=== PATIENT | male | born 1975 | race Caucasian/White ===

== ENCOUNTER 2020-01-22 10:23 | Outpatient (REF) | payer MEDICARE, MEDICAID, SELFPAY ==
[2020-01-22 13:41] LABS: Neut%MD 51.2 %; Neutrophils Absolute Auto 5.3 X10*3/uL (2.0-8.3); WBCANC 10.3 X10*3/uL
[2020-01-22 13:42] LABS: Basophils Absolute Auto 0.1 X10*3/uL (0.0-0.2); Basophils Percent Auto 0.7 % (0-2); Eosinophils Absolute Auto 1.9 X10*3/uL (0.0-0.4); Eosinophils Percent Auto 19.1 % (0-4); Imm Gran Abs Auto 0.04 X10*3/uL (0.00-0.03); Imm Gran Pct Auto 0.4 % (0.0-0.4); Lymphocytes Absolute Auto 2.3 X10*3/uL (1.2-4.9); Lymphocytes Percent Auto 23.1 % (20-40); MANUAL DIFF FLAG NO; Mean Corpuscular HGB Conc 32.5 g/dl (31.0-36.0); Mean Corpuscular Hemoglobin 28.8 pg (27.0-33.0); Mean Corpuscular Volume 88.5 fL (80-98); Mean Platelet Volume 12.5 fL (9.4-12.4); Monocytes Absolute Auto 0.5 X10*3/uL (0.1-1.2); Monocytes Percent Auto 4.6 % (2-11); Neutrophils Absolute Auto 5.3 X10*3/uL (2.0-8.3); Neutrophils Percent Auto 52.1 % (45-73); Platelet Count 184 X10*3/uL (160-400); Red Blood Count 4.52 X10*6/uL (4.60-5.80); Red Cell Distribution Width 15.7 % (11.0-16.0); White Blood Count 10.1 X10*3/uL (4.8-10.8)
== END 2020-01-22 10:24 | disposition home or self-care (01) ==
LOC: HO.10HDL 10:23
PROVIDERS: Visit Provider Psychiatry & Neurology Child & Adolescent Psychiatry
DX: F25.0 Schizoaffective disorder, bipolar type (principal); Z51.81 Encounter for therapeutic drug level monitoring; Z79.899 Other long term (current) drug therapy
CPT/HCPCS: 36415; 85025

== ENCOUNTER 2020-01-29 10:17 | Outpatient (REF) | payer MEDICARE, MEDICAID, SELFPAY ==
[2020-01-29 14:49] LABS: Anion Gap 17 (12-20); Blood Urea Nitrogen 23 mg/dL (9-16); Calcium 9.6 mg/dL (8.4-10.2); Carbon Dioxide 26 mmol/L (22-29); Chloride 110 mmol/L (96-108); Estimated Glomerular Filt Rate > 60; Glucose Random 130 mg/dL (60-115); Potassium 4.3 mmol/l (3.3-5.1); Sodium 149 mmol/L (135-145)
== END 2020-01-29 10:18 | disposition home or self-care (01) ==
LOC: HO.10HDL 10:17
PROVIDERS: Visit Provider Internal Medicine
DX: E11.9 Type 2 diabetes mellitus without complications (principal)
CPT/HCPCS: 80048

== ENCOUNTER 2020-02-06 09:44 | Outpatient (REF) | payer MEDICARE, MEDICAID, SELFPAY ==
[2020-02-06 10:44] LABS: Alanine Aminotransferase 23 U/L (0-40); Albumin Level 4.3 g/dL (3.5-5.0); Alkaline Phosphatase 107 U/L (39-117); Anion Gap 13 (12-20); Aspartate Amino Transferase 13 U/L (5-37); Bilirubin Total 0.3 mg/dL (0.0-1.0); Blood Urea Nitrogen 19 mg/dL (9-16); Calcium 9.4 mg/dL (8.4-10.2); Carbon Dioxide 28 mmol/L (22-29); Chloride 110 mmol/L (96-108); Estimated Glomerular Filt Rate > 60; Glucose Random 194 mg/dL (60-115); Sodium 147 mmol/L (135-145); Total Protein 7.1 g/dL (6.5-8.0)
== END 2020-02-06 09:45 | disposition home or self-care (01) ==
LOC: HO.10HDL 09:44
PROVIDERS: Visit Provider Internal Medicine
DX: E78.00 Pure hypercholesterolemia, unspecified (principal); E11.9 Type 2 diabetes mellitus without complications
CPT/HCPCS: 80053

== ENCOUNTER 2020-02-13 11:34 | Outpatient (REF) | payer MEDICARE, MEDICAID, SELFPAY ==
[2020-02-13 13:27] LABS: MANUAL DIFF FLAG NO
[2020-02-13 13:38] LABS: Basophils Absolute Auto 0.1 X10*3/uL (0.0-0.2); Basophils Percent Auto 0.7 % (0-2); Eosinophils Absolute Auto 2.5 X10*3/uL (0.0-0.4); Hematocrit 41.5 % (42-52); Hemoglobin 13.2 g/dl (14.0-18.0); Imm Gran Abs Auto 0.03 X10*3/uL (0.00-0.03); Imm Gran Pct Auto 0.3 % (0.0-0.4); Lymphocytes Absolute Auto 3.7 X10*3/uL (1.2-4.9); Lymphocytes Percent Auto 31.8 % (20-40); Mean Corpuscular HGB Conc 31.8 g/dl (31.0-36.0); Mean Corpuscular Hemoglobin 28.6 pg (27.0-33.0); Mean Platelet Volume 12.2 fL (9.4-12.4); Monocytes Absolute Auto 0.6 X10*3/uL (0.1-1.2); Monocytes Percent Auto 5.4 % (2-11); Neutrophils Absolute Auto 4.6 X10*3/uL (2.0-8.3); Neutrophils Percent Auto 39.8 % (45-73); Platelet Count 199 X10*3/uL (160-400); Red Blood Count 4.61 X10*6/uL (4.60-5.80); Red Cell Distribution Width 15.9 % (11.0-16.0); White Blood Count 11.6 X10*3/uL (4.8-10.8)
[2020-02-13 14:11] LABS: Anion Gap 19 (12-20); Blood Urea Nitrogen 23 mg/dL (9-16); Calcium 9.9 mg/dL (8.4-10.2); Carbon Dioxide 22 mmol/L (22-29); Chloride 110 mmol/L (96-108); Estimated Glomerular Filt Rate 56; Glucose Random 98 mg/dL (60-115); Potassium 4.2 mmol/l (3.3-5.1); Sodium 147 mmol/L (135-145)
== END 2020-02-13 11:35 | disposition home or self-care (01) ==
LOC: HO.10HDL 11:34
PROVIDERS: PCP Internal Medicine; Visit Provider Psychiatry & Neurology Child & Adolescent Psychiatry
DX: F25.0 Schizoaffective disorder, bipolar type (principal); E87.1 Hypo-osmolality and hyponatremia
CPT/HCPCS: 36415; 80048; 85025

== ENCOUNTER 2020-03-02 14:09 | Inpatient (IN) | payer MEDICARE, MEDICAID, SELFPAY ==
[2020-03-02 14:33] VITALS: BP 119/74; PULSE 114; RESP 20; TEMP 38.3; O2SAT 95; BMI 21.4
--- NOTE | 2020-03-02 15:01 | XR_ITS ---
EXAMINATION: XR CHEST CLINICAL INFORMATION: Fever COMPARISON: 09/28/2018 TECHNIQUE: Frontal view of the chest was obtained. FINDINGS: Lung volumes are low. Coarse interstitial opacities are seen. There is a suggestion of hazy opacity at the left lung base. No pleural effusion or pneumothorax. Cardiomediastinal silhouette normal. Regional skeleton intact. XR/XR chest 1V IMPRESSION: There is low lung volumes with coarse interstitial opacities, which could reflect bronchovascular crowding given the low lung volumes. There is a suggestion of hazy opacity at the left lung base. Pneumonia or interstitial pneumonitis are possible. Consider repeat radiograph with improved inspiratory effort.
--- NOTE | 2020-03-02 15:03 | ED_ITS ---
HPI - General Adult General Chief complaint: General Medical <NAZIA Monroe - Last Filed: 03/02/20 17:54> Stated complaint: FEVER <NAZIA Monroe - Last Filed: 03/02/20 17:54> Time Seen by Provider: 03/02/20 15:00 <NAZIA Monroe Last Filed: 03/02/20 17:54> Source: family <NAZIA Monroe - Last Filed: 03/02/20 17:54> Mode of arrival: EMS <NAZIA Monroe - Last Filed: 03/02/20 17:54> Limitations: altered mental status <NAZIA Monroe - Last Filed: 03/02/20 17:54> History of Present Illness HPI narrative: 44 y/o male with history of schizoaffect disorder on Clozaril, PTSD, anxiety, short term memory loss, anxiety and diabetes who presents to ED from PCP office with tachycardia, low grade fever and confusion. Patient is with his mother who provides history. He lives in a [place] [facility] reportedly over the last 1-2 weeks he has been having bizarre behaviors - asking for dinner in the middle of the night, going up and down stairs, packing his clothes in a garbage bag thinking he has to move out. Patient himself reports difficulty concentrating and trouble standing. Mom reports a 14 lb weight loss over the last 3 months and 14 lbs in the 3 months prior to that, unintentional. Reports adequate PO intake and compliance with all medications. He was previously admitted on M5 for 11 weeks and had multiple medication adjustments with good effect per mother. Patient denies chest pain, bad pain, N/V/D, SOB cough or other signs and symptoms of infection. No known exposure to COVID-19. <NAZIA Monroe - Last Filed: 03/02/20 17:54> MD complaint: confusion <NAZIA Monroe - Last Filed: 03/02/20 17:54> Onset (ago): week(s) (2) <NAZIA Monroe - Last Filed: 03/02/20 17:54> Severity: moderate <NAZIA Monroe Last Filed: 03/02/20 17:54> Associated symptoms: confusion, malaise and weakness <NAZIA Monroe - Last Filed: 03/02/20 17:54> Treatments prior to arrival: none <NAZIA Monroe - Last Filed: 03/02/20 17:54> Related Data Home medications: Home Medications Medication Instructions Recorded Confirmed ascorbic acid (vitamin C) [Vitamin 1 tab PO DAILY 03/02/20 03/02/20 C] benztropine 1 tab PO BID 03/02/20 03/02/20 cholecalciferol (vitamin D3) 1 cap PO DAILY 03/02/20 03/02/20 [Vitamin D3] clozapine 50 mg PO DAILY 03/02/20 03/02/20 clozapine 300 mg PO BEDTIME 03/02/20 03/02/20 fluticasone propionate 1 spray INTRANASAL DAILY 03/02/20 03/02/20 glipizide 0.5 tab PO DAILY 03/02/20 03/02/20 haloperidol 2.5 mg PO DAILY 03/02/20 03/02/20 haloperidol 5 mg PO BEDTIME 03/02/20 03/02/20 metformin 1 tab PO BID 03/02/20 03/02/20 multivitamin 1 tab PO DAILY 03/02/20 03/02/20 polyethylene glycol 3350 [Miralax] 17 g PO DAILY PRN 03/02/20 03/02/20 sertraline 1.5 tab PO DAILY 03/02/20 03/02/20 simvastatin 1 tab PO DAILY 03/02/20 03/02/20 topiramate 25 mg PO DAILY 03/02/20 03/02/20 topiramate 50 mg PO BEDTIME 03/02/20 03/02/20 warfarin 2.5 mg PO SUSA@1600 03/02/20 03/02/20 warfarin 5 mg PO MOFR@1600 03/02/20 03/02/20 <NAZIA Monroe - Last Filed: 03/02/20 17:54> Allergies/adverse reactions: Allergies Allergy/AdvReac Type Severity Reaction Status Date / Time penicillin G Allergy Unknown Unknown Verified 03/03/20 06:07 Penicillins [PENICILLINS] Allergy Unknown Unknown Verified 03/03/20 06:07 <NAZIA Monroe - Last Filed: 03/02/20 17:54> Review of Systems Review of Systems: Constitutional: No Fever, No Chills ENT/Mouth: No sore throat, No Rhinorrhea, No Swallowing Difficulty Eyes: No Eye Pain, No Swelling, No Redness Cardiovascular: No Chest Pain, No SOB, No Orthopnea, No Edema Respiratory: No Cough, No Sputum, No Wheezing, No dyspnea Gastrointestinal: No Nausea, No Vomiting, No Diarrhea, No abdominal Pain, No Hematochezia, No Melena Genitourinary: No Dysuria, No Urinary Frequency, No Hematuria Musculoskeletal: No joint pain, No Myalgias Skin: No Skin Lesions, No rash Neuro: + Weakness, No Numbness, No Dizziness, No Headache, +confusion Psych: No Anxiety/Panic, No Depression, + behavioral changes Heme/Lymph: No Bruising, No Lymphadenopathy Endocrine: No Polyuria, No Polydipsia <NAZIA Monroe - Last Filed: 03/02/20 17:54> [facility] Past Medical History Medical History: Medical History (Updated 03/03/20 @ 09:37 by Liang Connelly MD) Anxiety Diabetes insipidus Diabetes mellitus High cholesterol PTSD (post-traumatic stress disorder) Saddle pulmonary embolus Schizo affective schizophrenia <NAZIA Monroe - Last Filed: 03/02/20 17:54> Social History Social History: Social History Household Members: Other Housing: Other Housing Other:: longterm/Assisted living Alcohol intake: never Smoking Status: Never smoker Use of substances other than those prescribed or required for medical reasons: No Currently Displaying Signs/Symptoms of Drug Intoxication Withdrawal: No Advance Directives: Yes Advance Directives on File: Yes Advance Directives Date on File: 01/22/20 Do you have thoughts of harming others: None Do you have a plan to hurt others: No Plan Recently lost weight without trying: Unsure service: No Current occupational status: disabled <NAZIA Monroe - Last Filed: 03/02/20 17:54> Physical Exam Vital Signs: Vital Signs: Last Vital Signs Temp 97.8 F 03/04/20 23:51 Pulse 80 03/04/20 23:51 Resp 20 03/04/20 23:51 BP 141/87 H 03/04/20 23:51 Pulse Ox 99 03/04/20 23:51 Body Mass Index 21.4 Appearance: Alert. Oriented X2. No acute distress. Eyes: Pupils equal, round and reactive to light. ENT: Pharynx normal. Neck: Normal inspection. Neck supple. CVS: tachycardic, regular rhythm. Pulses normal. Respiratory: No respiratory distress. Breath sounds normal. Abdomen: Soft and nontender. +BS x4 Skin: Skin warm and dry. Normal skin color. Normal skin turgor. No rashes. Extremities: No lower extremity edema. Neuro: Oriented X 3. Bilateral upper extremity weakness. No focal deficits. <NAZIA Monroe - Last Filed: 03/02/20 17:54> Vital Signs: Last Vital Signs Temp 97.8 F 03/04/20 23:51 Pulse 80 03/04/20 23:51 Resp 20 03/04/20 23:51 BP 141/87 H 03/04/20 23:51 Pulse Ox 99 03/04/20 23:51 Body Mass Index 21.4 <Jose Llanos MD - Last Filed: 03/05/20 02:46> Course Course Course Narrative: 44 y/o male here with confusion, fever, tachycardia. Found to have sodium of 155 with 4L free water deficit. Will start on D5W @ 75cc/hr to correct 1/2 of the deficit within the 1st 24 hour. CXR showed possible PNA so CAP antibiotics given. COVID and influenza negative. He remains hemodynamically stable with no hypoxia. He has a history of recurrent hypernatremia. Hospitalist paged for admission. Results discussed with mom and patient at the bedside. <NAZIA Monroe - Last Filed: 03/02/20 17:54> I have reviewed the chart <Jose Llanos MD - Last Filed: 03/05/20 02:46> Reevaluation(s) Reevaluation #1: Spoke with hiospitalist who accepts patient. <NAZIA Monroe - Last Filed: 03/02/20 17:54> Medical Decision Making Lab Data Result diagrams: : 03/04/20 05:25 03/04/20 18:13 <NAZIA Monroe - Last Filed: 03/02/20 17:54> Labs: Lab Results 03/02/20 03/02/20 03/02/20 Range/Units 15:24 15:24 15:27 WBC 12.2 H (4.8-10.8) X10*3/uL RBC 3.40 L D (4.60-5.80) X10*6/uL Hgb 9.9 L D (14.0-18.0) g/dl Hct 31.7 L D (42-52) % MCV 93.2 (80-98) fL MCH 29.1 (27.0-33.0) pg MCHC 31.2 (31.0-36.0) g/dl RDW 15.9 (11.0-16.0) % Plt Count 246 (160-400) X10*3/uL MPV 11.2 (9.4-12.4) fL Immature Gran % (Auto) 1.4 H (0.0-0.4) % Neut % (Auto) 73.9 H (45-73) % Lymph % (Auto) 15.3 L (20-40) % [place] % (Auto) 5.7 (2-11) % Eos % (Auto) 3.3 (0-4) % Baso % (Auto) 0.4 (0-2) % Lymph # (Auto) 1.9 (1.2-4.9) X10*3/uL [place] # (Auto) 0.7 (0.1-1.2) X10*3/uL Eos # (Auto) 0.4 (0.0-0.4) X10*3/uL Baso # (Auto) 0.1 (0.0-0.2) X10*3/uL Abs Immat Gran (auto) 0.17 H (0.00-0.03) X10*3/uL Absolute Neuts (auto) 9.0 H (2.0-8.3) X10*3/uL Absolute Nucleated RBC 0.000 (0.0-0.012) X10*3/uL Nucleated RBC % (auto) 0.0 (0.0-0.2) /100WBC Sodium (135-145) mmol/L Potassium (3.3-5.1) mmol/l Chloride (96-108) mmol/L Carbon Dioxide (22-29) mmol/L Anion Gap (12-20) BUN (9-16) mg/dL Creatinine (0.5-1.4) mg/dL Estim Creat Clear Calc Estimated GFR Random Glucose (60-115) mg/dL Lactic Acid (0.5-2.0) mmol/L Lactic Acid Fup @ 2Hr (0.5-2.0) mmol/L Calcium (8.4-10.2) mg/dL Total Bilirubin (0.0-1.0) mg/dL Direct Bilirubin (0.0-0.5) mg/dL AST (5-37) U/L ALT (0-40) U/L Alkaline Phosphatase (39-117) U/L C-Reactive Protein (< or = 0.50) mg/dL Total Protein (6.5-8.0) g/dL Albumin (3.5-5.0) g/dL Urine Color Urine Appearance Urine pH (5.0-8.0) Ur Specific [place] (1.005-1.025) Urine Protein (NEG-TRACE) MG/DL Urine Glucose (UA) (NEG) MG/DL Urine Ketones (NEG) MG/DL Urine Blood (NEG) Urine Nitrite (NEG) Ur Leukocyte Esterase (NEG) Urine RBC (0) /HPF Urine WBC (0-4) /HPF Ur Squamous Epith Cells /LPF Urine Bacteria /LPF Urine Osmolality 327 L (373-1093) mosm/kg Ur Random Sodium 42.0 mmol/L Urine Opiates Screen (Not Detect) Ur Barbiturates Screen (Not Detect) Ur Phencyclidine Scrn (Not Detect) Ur Amphetamines Screen (Not Detect) U Benzodiazepines Scrn (Not Detect) Urine Cocaine Screen (Not Detect) U Marijuana (THC) Screen (Not Detect) Coronavirus (PCR) (Negative) Influenza Type A (PCR) (Negative) Influenza Type B (PCR) (Negative) RSV RNA Qual (PCR) (Negative) 03/02/20 03/02/20 03/02/20 Range/Units 15:27 15:27 15:27 WBC (4.8-10.8) X10*3/uL RBC (4.60-5.80) X10*6/uL Hgb (14.0-18.0) g/dl Hct (42-52) % MCV (80-98) fL MCH (27.0-33.0) pg MCHC (31.0-36.0) g/dl RDW (11.0-16.0) % Plt Count (160-400) X10*3/uL MPV (9.4-12.4) fL Immature Gran % (Auto) (0.0-0.4) % Neut % (Auto) (45-73) % Lymph % (Auto) (20-40) % [place] % (Auto) (2-11) % Eos % (Auto) (0-4) % Baso % (Auto) (0-2) % Lymph # (Auto) (1.2-4.9) X10*3/uL [place] # (Auto) (0.1-1.2) X10*3/uL Eos # (Auto) (0.0-0.4) X10*3/uL Baso # (Auto) (0.0-0.2) X10*3/uL Abs Immat Gran (auto) (0.00-0.03) X10*3/uL Absolute Neuts (auto) (2.0-8.3) X10*3/uL Absolute Nucleated RBC (0.0-0.012) X10*3/uL Nucleated RBC % (auto) (0.0-0.2) /100WBC Sodium 155 H (135-145) mmol/L Potassium 3.8 (3.3-5.1) mmol/l Chloride 120 H (96-108) mmol/L Carbon Dioxide 20 L (22-29) mmol/L Anion Gap 19 (12-20) BUN 31 H (9-16) mg/dL Creatinine 1.44 H (0.5-1.4) mg/dL Estim Creat Clear Calc 60.3 Estimated GFR 54 Random Glucose 149 H D (60-115) mg/dL Lactic Acid 2.7 H* (0.5-2.0) mmol/L Lactic Acid Fup @ 2Hr (0.5-2.0) mmol/L Calcium 9.3 D (8.4-10.2) mg/dL Total Bilirubin 0.3 (0.0-1.0) mg/dL Direct Bilirubin < 0.2 (0.0-0.5) mg/dL AST 16 (5-37) U/L ALT 27 (0-40) U/L Alkaline Phosphatase 107 (39-117) U/L C-Reactive Protein 28.94 H (< or = 0.50) mg/dL Total Protein 6.8 (6.5-8.0) g/dL Albumin 3.5 (3.5-5.0) g/dL Urine Color Urine Appearance Urine pH (5.0-8.0) Ur Specific [place] (1.005-1.025) Urine Protein (NEG-TRACE) MG/DL Urine Glucose (UA) (NEG) MG/DL Urine Ketones (NEG) MG/DL Urine Blood (NEG) Urine Nitrite (NEG) Ur Leukocyte Esterase (NEG) Urine RBC (0) /HPF Urine WBC (0-4) /HPF Ur Squamous Epith Cells /LPF Urine Bacteria /LPF Urine Osmolality (373-1093) mosm/kg Ur Random Sodium mmol/L Urine Opiates Screen (Not Detect) Ur Barbiturates Screen (Not Detect) Ur Phencyclidine Scrn (Not Detect) Ur Amphetamines Screen (Not Detect) U Benzodiazepines Scrn (Not Detect) Urine Cocaine Screen (Not Detect) U Marijuana (THC) Screen (Not Detect) Coronavirus (PCR) (Negative) Influenza Type A (PCR) (Negative) Influenza Type B (PCR) (Negative) RSV RNA Qual (PCR) (Negative) 03/02/20 03/02/20 03/02/20 Range/Units 16:01 17:41 17:41 WBC (4.8-10.8) X10*3/uL RBC (4.60-5.80) X10*6/uL Hgb (14.0-18.0) g/dl Hct (42-52) % MCV (80-98) fL MCH (27.0-33.0) pg MCHC (31.0-36.0) g/dl RDW (11.0-16.0) % Plt Count (160-400) X10*3/uL MPV (9.4-12.4) fL Immature Gran % (Auto) (0.0-0.4) % Neut % (Auto) (45-73) % Lymph % (Auto) (20-40) % [place] % (Auto) (2-11) % Eos % (Auto) (0-4) % Baso % (Auto) (0-2) % Lymph # (Auto) (1.2-4.9) X10*3/uL [place] # (Auto) (0.1-1.2) X10*3/uL Eos # (Auto) (0.0-0.4) X10*3/uL Baso # (Auto) (0.0-0.2) X10*3/uL Abs Immat Gran (auto) (0.00-0.03) X10*3/uL Absolute Neuts (auto) (2.0-8.3) X10*3/uL Absolute Nucleated RBC (0.0-0.012) X10*3/uL Nucleated RBC % (auto) (0.0-0.2) /100WBC Sodium (135-145) mmol/L Potassium (3.3-5.1) mmol/l Chloride (96-108) mmol/L Carbon Dioxide (22-29) mmol/L Anion Gap (12-20) BUN (9-16) mg/dL Creatinine (0.5-1.4) mg/dL Estim Creat Clear Calc Estimated GFR Random Glucose (60-115) mg/dL Lactic Acid (0.5-2.0) mmol/L Lactic Acid Fup @ 2Hr (0.5-2.0) mmol/L Calcium (8.4-10.2) mg/dL Total Bilirubin (0.0-1.0) mg/dL Direct Bilirubin (0.0-0.5) mg/dL AST (5-37) U/L ALT (0-40) U/L Alkaline Phosphatase (39-117) U/L C-Reactive Protein (< or = 0.50) mg/dL Total Protein (6.5-8.0) g/dL Albumin (3.5-5.0) g/dL Urine Color YELLOW Urine Appearance CLEAR Urine pH 5.5 (5.0-8.0) Ur Specific [place] 1.015 (1.005-1.025) Urine Protein 1+ H (NEG-TRACE) MG/DL Urine Glucose (UA) NEG (NEG) MG/DL Urine Ketones NEG (NEG) MG/DL Urine Blood 1+ H (NEG) Urine Nitrite POS H (NEG) Ur Leukocyte Esterase 1+ H (NEG) Urine RBC 1-4 (0) /HPF Urine WBC 15-29 H (0-4) /HPF Ur Squamous Epith Cells NONE /LPF Urine Bacteria 3+ /LPF Urine Osmolality (373-1093) mosm/kg Ur Random Sodium mmol/L Urine Opiates Screen Not Detected (Not Detect) Ur Barbiturates Screen Not Detected (Not Detect) Ur Phencyclidine Scrn Not Detected (Not Detect) Ur Amphetamines Screen Not Detected (Not Detect) U Benzodiazepines Scrn Not Detected (Not Detect) Urine Cocaine Screen Not Detected (Not Detect) U Marijuana (THC) Screen Not Detected (Not Detect) Coronavirus (PCR) NEGATIVE (Negative) Influenza Type A (PCR) NEGATIVE (Negative) Influenza Type B (PCR) NEGATIVE (Negative) RSV RNA Qual (PCR) NEGATIVE (Negative) 03/02/20 Range/Units 18:26 WBC (4.8-10.8) X10*3/uL RBC (4.60-5.80) X10*6/uL Hgb (14.0-18.0) g/dl Hct (42-52) % MCV (80-98) fL MCH (27.0-33.0) pg MCHC (31.0-36.0) g/dl RDW (11.0-16.0) % Plt Count (160-400) X10*3/uL MPV (9.4-12.4) fL Immature Gran % (Auto) (0.0-0.4) % Neut % (Auto) (45-73) % Lymph % (Auto) (20-40) % [place] % (Auto) (2-11) % Eos % (Auto) (0-4) % Baso % (Auto) (0-2) % Lymph # (Auto) (1.2-4.9) X10*3/uL [place] # (Auto) (0.1-1.2) X10*3/uL Eos # (Auto) (0.0-0.4) X10*3/uL Baso # (Auto) (0.0-0.2) X10*3/uL Abs Immat Gran (auto) (0.00-0.03) X10*3/uL Absolute Neuts (auto) (2.0-8.3) X10*3/uL Absolute Nucleated RBC (0.0-0.012) X10*3/uL Nucleated RBC % (auto) (0.0-0.2) /100WBC Sodium (135-145) mmol/L Potassium (3.3-5.1) mmol/l Chloride (96-108) mmol/L Carbon Dioxide (22-29) mmol/L Anion Gap (12-20) BUN (9-16) mg/dL Creatinine (0.5-1.4) mg/dL Estim Creat Clear Calc Estimated GFR Random Glucose (60-115) mg/dL Lactic Acid (0.5-2.0) mmol/L Lactic Acid Fup @ 2Hr 0.9 (0.5-2.0) mmol/L Calcium (8.4-10.2) mg/dL Total Bilirubin (0.0-1.0) mg/dL Direct Bilirubin (0.0-0.5) mg/dL AST (5-37) U/L ALT (0-40) U/L Alkaline Phosphatase (39-117) U/L C-Reactive Protein (< or = 0.50) mg/dL Total Protein (6.5-8.0) g/dL Albumin (3.5-5.0) g/dL Urine Color Urine Appearance Urine pH (5.0-8.0) Ur Specific [place] (1.005-1.025) Urine Protein (NEG-TRACE) MG/DL Urine Glucose (UA) (NEG) MG/DL Urine Ketones (NEG) MG/DL Urine Blood (NEG) Urine Nitrite (NEG) Ur Leukocyte Esterase (NEG) Urine RBC (0) /HPF Urine WBC (0-4) /HPF Ur Squamous Epith Cells /LPF Urine Bacteria /LPF Urine Osmolality (373-1093) mosm/kg Ur Random Sodium mmol/L Urine Opiates Screen (Not Detect) Ur Barbiturates Screen (Not Detect) Ur Phencyclidine Scrn (Not Detect) Ur Amphetamines Screen (Not Detect) U Benzodiazepines Scrn (Not Detect) Urine Cocaine Screen (Not Detect) U Marijuana (THC) Screen (Not Detect) Coronavirus (PCR) (Negative) Influenza Type A (PCR) (Negative) Influenza Type B (PCR) (Negative) RSV RNA Qual (PCR) (Negative) <NAZIA Monroe - Last Filed: 03/02/20 17:54> Lab Results 11/10/20 11/10/20 11/10/20 Range/Units 15:24 15:24 15:27 WBC 12.2 H (4.8-10.8) X10*3/uL RBC 3.40 L D (4.60-5.80) X10*6/uL Hgb 9.9 L D (14.0-18.0) g/dl Hct 31.7 L D (42-52) % MCV 93.2 (80-98) fL MCH 29.1 (27.0-33.0) pg MCHC 31.2 (31.0-36.0) g/dl RDW 15.9 (11.0-16.0) % Plt Count 246 (160-400) X10*3/uL MPV 11.2 (9.4-12.4) fL Immature Gran % (Auto) 1.4 H (0.0-0.4) % Neut % (Auto) 73.9 H (45-73) % Lymph % (Auto) 15.3 L (20-40) % [place] % (Auto) 5.7 (2-11) % Eos % (Auto) 3.3 (0-4) % Baso % (Auto) 0.4 (0-2) % Lymph # (Auto) 1.9 (1.2-4.9) X10*3/uL [place] # (Auto) 0.7 (0.1-1.2) X10*3/uL Eos # (Auto) 0.4 (0.0-0.4) X10*3/uL Baso # (Auto) 0.1 (0.0-0.2) X10*3/uL Abs Immat Gran (auto) 0.17 H (0.00-0.03) X10*3/uL Absolute Neuts (auto) 9.0 H (2.0-8.3) X10*3/uL Absolute Nucleated RBC 0.000 (0.0-0.012) X10*3/uL Nucleated RBC % (auto) 0.0 (0.0-0.2) /100WBC Sodium (135-145) mmol/L Potassium (3.3-5.1) mmol/l Chloride (96-108) mmol/L Carbon Dioxide (22-29) mmol/L Anion Gap (12-20) BUN (9-16) mg/dL Creatinine (0.5-1.4) mg/dL Estim Creat Clear Calc Estimated GFR Random Glucose (60-115) mg/dL Lactic Acid (0.5-2.0) mmol/L Lactic Acid Fup @ 2Hr (0.5-2.0) mmol/L Calcium (8.4-10.2) mg/dL Total Bilirubin (0.0-1.0) mg/dL Direct Bilirubin (0.0-0.5) mg/dL AST (5-37) U/L ALT (0-40) U/L Alkaline Phosphatase (39-117) U/L C-Reactive Protein (< or = 0.50) mg/dL Total Protein (6.5-8.0) g/dL Albumin (3.5-5.0) g/dL Urine Color Urine Appearance Urine pH (5.0-8.0) Ur Specific [place] (1.005-1.025) Urine Protein (NEG-TRACE) MG/DL Urine Glucose (UA) (NEG) MG/DL Urine Ketones (NEG) MG/DL Urine Blood (NEG) Urine Nitrite (NEG) Ur Leukocyte Esterase (NEG) Urine RBC (0) /HPF Urine WBC (0-4) /HPF Ur Squamous Epith Cells /LPF Urine Bacteria /LPF Urine Osmolality 327 L (373-1093) mosm/kg Ur Random Sodium 42.0 mmol/L Urine Opiates Screen (Not Detect) Ur Barbiturates Screen (Not Detect) Ur Phencyclidine Scrn (Not Detect) Ur Amphetamines Screen (Not Detect) U Benzodiazepines Scrn (Not Detect) Urine Cocaine Screen (Not Detect) U Marijuana (THC) Screen (Not Detect) Coronavirus (PCR) (Negative) Influenza Type A (PCR) (Negative) Influenza Type B (PCR) (Negative) RSV RNA Qual (PCR) (Negative) 03/02/20 03/02/20 03/02/20 Range/Units 15:27 15:27 15:27 WBC (4.8-10.8) X10*3/uL RBC (4.60-5.80) X10*6/uL Hgb (14.0-18.0) g/dl Hct (42-52) % MCV (80-98) fL MCH (27.0-33.0) pg MCHC (31.0-36.0) g/dl RDW (11.0-16.0) % Plt Count (160-400) X10*3/uL MPV (9.4-12.4) fL Immature Gran % (Auto) (0.0-0.4) % Neut % (Auto) (45-73) % Lymph % (Auto) (20-40) % [place] % (Auto) (2-11) % Eos % (Auto) (0-4) % Baso % (Auto) (0-2) % Lymph # (Auto) (1.2-4.9) X10*3/uL [place] # (Auto) (0.1-1.2) X10*3/uL Eos # (Auto) (0.0-0.4) X10*3/uL Baso # (Auto) (0.0-0.2) X10*3/uL Abs Immat Gran (auto) (0.00-0.03) X10*3/uL Absolute Neuts (auto) (2.0-8.3) X10*3/uL Absolute Nucleated RBC (0.0-0.012) X10*3/uL Nucleated RBC % (auto) (0.0-0.2) /100WBC Sodium 155 H (135-145) mmol/L Potassium 3.8 (3.3-5.1) mmol/l Chloride 120 H (96-108) mmol/L Carbon Dioxide 20 L (22-29) mmol/L Anion Gap 19 (12-20) BUN 31 H (9-16) mg/dL Creatinine 1.44 H (0.5-1.4) mg/dL Estim Creat Clear Calc 60.3 Estimated GFR 54 Random Glucose 149 H D (60-115) mg/dL Lactic Acid 2.7 H* (0.5-2.0) mmol/L Lactic Acid Fup @ 2Hr (0.5-2.0) mmol/L Calcium 9.3 D (8.4-10.2) mg/dL Total Bilirubin 0.3 (0.0-1.0) mg/dL Direct Bilirubin < 0.2 (0.0-0.5) mg/dL AST 16 (5-37) U/L ALT 27 (0-40) U/L Alkaline Phosphatase 107 (39-117) U/L C-Reactive Protein 28.94 H (< or = 0.50) mg/dL Total Protein 6.8 (6.5-8.0) g/dL Albumin 3.5 (3.5-5.0) g/dL Urine Color Urine Appearance Urine pH (5.0-8.0) Ur Specific [place] (1.005-1.025) Urine Protein (NEG-TRACE) MG/DL Urine Glucose (UA) (NEG) MG/DL Urine Ketones (NEG) MG/DL Urine Blood (NEG) Urine Nitrite (NEG) Ur Leukocyte Esterase (NEG) Urine RBC (0) /HPF Urine WBC (0-4) /HPF Ur Squamous Epith Cells /LPF Urine Bacteria /LPF Urine Osmolality (373-1093) mosm/kg Ur Random Sodium mmol/L Urine Opiates Screen (Not Detect) Ur Barbiturates Screen (Not Detect) Ur Phencyclidine Scrn (Not Detect) Ur Amphetamines Screen (Not Detect) U Benzodiazepines Scrn (Not Detect) Urine Cocaine Screen (Not Detect) U Marijuana (THC) Screen (Not Detect) Coronavirus (PCR) (Negative) Influenza Type A (PCR) (Negative) Influenza Type B (PCR) (Negative) RSV RNA Qual (PCR) (Negative) 03/02/20 03/02/20 03/02/20 Range/Units 16:01 17:41 17:41 WBC (4.8-10.8) X10*3/uL RBC (4.60-5.80) X10*6/uL Hgb (14.0-18.0) g/dl Hct (42-52) % MCV (80-98) fL MCH (27.0-33.0) pg MCHC (31.0-36.0) g/dl RDW (11.0-16.0) % Plt Count (160-400) X10*3/uL MPV (9.4-12.4) fL Immature Gran % (Auto) (0.0-0.4) % Neut % (Auto) (45-73) % Lymph % (Auto) (20-40) % [place] % (Auto) (2-11) % Eos % (Auto) (0-4) % Baso % (Auto) (0-2) % Lymph # (Auto) (1.2-4.9) X10*3/uL [place] # (Auto) (0.1-1.2) X10*3/uL Eos # (Auto) (0.0-0.4) X10*3/uL Baso # (Auto) (0.0-0.2) X10*3/uL Abs Immat Gran (auto) (0.00-0.03) X10*3/uL Absolute Neuts (auto) (2.0-8.3) X10*3/uL Absolute Nucleated RBC (0.0-0.012) X10*3/uL Nucleated RBC % (auto) (0.0-0.2) /100WBC Sodium (135-145) mmol/L Potassium (3.3-5.1) mmol/l Chloride (96-108) mmol/L Carbon Dioxide (22-29) mmol/L Anion Gap (12-20) BUN (9-16) mg/dL Creatinine (0.5-1.4) mg/dL Estim Creat Clear Calc Estimated GFR Random Glucose (60-115) mg/dL Lactic Acid (0.5-2.0) mmol/L Lactic Acid Fup @ 2Hr (0.5-2.0) mmol/L Calcium (8.4-10.2) mg/dL Total Bilirubin (0.0-1.0) mg/dL Direct Bilirubin (0.0-0.5) mg/dL AST (5-37) U/L ALT (0-40) U/L Alkaline Phosphatase (39-117) U/L C-Reactive Protein (< or = 0.50) mg/dL Total Protein (6.5-8.0) g/dL Albumin (3.5-5.0) g/dL Urine Color YELLOW Urine Appearance CLEAR Urine pH 5.5 (5.0-8.0) Ur Specific [place] 1.015 (1.005-1.025) Urine Protein 1+ H (NEG-TRACE) MG/DL Urine Glucose (UA) NEG (NEG) MG/DL Urine Ketones NEG (NEG) MG/DL Urine Blood 1+ H (NEG) Urine Nitrite POS H (NEG) Ur Leukocyte Esterase 1+ H (NEG) Urine RBC 1-4 (0) /HPF Urine WBC 15-29 H (0-4) /HPF Ur Squamous Epith Cells NONE /LPF Urine Bacteria 3+ /LPF Urine Osmolality (373-1093) mosm/kg Ur Random Sodium mmol/L Urine Opiates Screen Not Detected (Not Detect) Ur Barbiturates Screen Not Detected (Not Detect) Ur Phencyclidine Scrn Not Detected (Not Detect) Ur Amphetamines Screen Not Detected (Not Detect) U Benzodiazepines Scrn Not Detected (Not Detect) Urine Cocaine Screen Not Detected (Not Detect) U Marijuana (THC) Screen Not Detected (Not Detect) Coronavirus (PCR) NEGATIVE (Negative) Influenza Type A (PCR) NEGATIVE (Negative) Influenza Type B (PCR) NEGATIVE (Negative) RSV RNA Qual (PCR) NEGATIVE (Negative) 03/02/20 Range/Units 18:26 WBC (4.8-10.8) X10*3/uL RBC (4.60-5.80) X10*6/uL Hgb (14.0-18.0) g/dl Hct (42-52) % MCV (80-98) fL MCH (27.0-33.0) pg MCHC (31.0-36.0) g/dl RDW (11.0-16.0) % Plt Count (160-400) X10*3/uL MPV (9.4-12.4) fL Immature Gran % (Auto) (0.0-0.4) % Neut % (Auto) (45-73) % Lymph % (Auto) (20-40) % [place] % (Auto) (2-11) % Eos % (Auto) (0-4) % Baso % (Auto) (0-2) % Lymph # (Auto) (1.2-4.9) X10*3/uL [place] # (Auto) (0.1-1.2) X10*3/uL Eos # (Auto) (0.0-0.4) X10*3/uL Baso # (Auto) (0.0-0.2) X10*3/uL Abs Immat Gran (auto) (0.00-0.03) X10*3/uL Absolute Neuts (auto) (2.0-8.3) X10*3/uL Absolute Nucleated RBC (0.0-0.012) X10*3/uL Nucleated RBC % (auto) (0.0-0.2) /100WBC Sodium (135-145) mmol/L Potassium (3.3-5.1) mmol/l Chloride (96-108) mmol/L Carbon Dioxide (22-29) mmol/L Anion Gap (12-20) BUN (9-16) mg/dL Creatinine (0.5-1.4) mg/dL Estim Creat Clear Calc Estimated GFR Random Glucose (60-115) mg/dL Lactic Acid (0.5-2.0) mmol/L Lactic Acid Fup @ 2Hr 0.9 (0.5-2.0) mmol/L Calcium (8.4-10.2) mg/dL Total Bilirubin (0.0-1.0) mg/dL Direct Bilirubin (0.0-0.5) mg/dL AST (5-37) U/L ALT (0-40) U/L Alkaline Phosphatase (39-117) U/L C-Reactive Protein (< or = 0.50) mg/dL Total Protein (6.5-8.0) g/dL Albumin (3.5-5.0) g/dL Urine Color Urine Appearance Urine pH (5.0-8.0) Ur Specific [place] (1.005-1.025) Urine Protein (NEG-TRACE) MG/DL Urine Glucose (UA) (NEG) MG/DL Urine Ketones (NEG) MG/DL Urine Blood (NEG) Urine Nitrite (NEG) Ur Leukocyte Esterase (NEG) Urine RBC (0) /HPF Urine WBC (0-4) /HPF Ur Squamous Epith Cells /LPF Urine Bacteria /LPF Urine Osmolality (373-1093) mosm/kg Ur Random Sodium mmol/L Urine Opiates Screen (Not Detect) Ur Barbiturates Screen (Not Detect) Ur Phencyclidine Scrn (Not Detect) Ur Amphetamines Screen (Not Detect) U Benzodiazepines Scrn (Not Detect) Urine Cocaine Screen (Not Detect) U Marijuana (THC) Screen (Not Detect) Coronavirus (PCR) (Negative) Influenza Type A (PCR) (Negative) Influenza Type B (PCR) (Negative) RSV RNA Qual (PCR) (Negative) <Jose Llanos MD - Last Filed: 03/05/20 02:46> Critical Care Time Critical Care Time Critical Care Time: No <NAZIA Monroe - Last Filed: 03/02/20 17:54> Discharge Plan Discharge Clinical Impression: Acute hypernatremia, Acute metabolic encephalopathy Pneumonia Qualifiers: Pneumonia type: due to unspecified organism Laterality: left Lung location: lower lobe of lung Qualified Code(s): J18.9 - Pneumonia, unspecified organism <NAZIA Monroe - Last Filed: 03/02/20 17:54> Patient Disposition: Admitted As Inpatient <NAZIA Monroe - Last Filed: 03/02/20 17:54> Interventions: Admission Worksheet (ED) Last Done: 03/02/20 20:19 <NAZIA Monroe - Last Filed: 03/02/20 17:54> Discharge Date/Time: 03/02/20 20:27 <NAZIA Monroe - Last Filed: 03/02/20 17:54>
--- NOTE | 2020-03-02 15:24 | CT_ITS ---
EXAMINATION: CT HEAD WITHOUT CONTRAST CLINICAL INFORMATION: 44-year-old male patient with confusion and altered mental status. COMPARISON: CT exams of the brain on 09/28/2018 and 01/07/2016. TECHNIQUE: Contiguous axial imaging was performed from the skull base to vertex without intravenous administration of contrast. This CT examination was performed using dose optimization techniques as appropriate, variously including the following: *Automated exposure control *Adjustment of mA and/or kV according to patient size (this includes techniques or standardized protocols for targeted exams where dose is matched to indication/reason for exam; i.e. extremities or head) *Use of iterative reconstruction technique DLP: 715 mGy-cm FINDINGS: Again there is relative ventriculomegaly with prominence of the cerebral sulci consistent with generalized cerebral atrophy in this 44-year-old patient. The bifrontal horn diameter now measures 4.5 cm. Previously 4.3 cm. The third ventricle measures 1.1 cm in width. Previously 0.8 cm. The fourth ventricle measures 1.7 cm in width. Previously 1.5 cm. There is no evidence of acute intracranial hemorrhage or territorial infarction. No abnormal mass effect or midline shift is seen. [place] to white matter differentiation is well preserved. No extra-axial fluid collections are identified. There is no abnormal attenuation within the brain parenchyma. The osseous structures and soft tissues are normal. The mastoid air cells and visualized portions of the paranasal sinuses are well aerated. CT/CT head/brain wo con IMPRESSION: Generalized mild cerebral atrophy in this 44-year-old patient. No acute intracranial abnormalities.
[2020-03-02 15:34] LABS: Basophils Absolute Auto 0.1 X10*3/uL (0.0-0.2); Basophils Percent Auto 0.4 % (0-2); Eosinophils Absolute Auto 0.4 X10*3/uL (0.0-0.4); Eosinophils Percent Auto 3.3 % (0-4); Hematocrit 31.7 % (42-52); Hemoglobin 9.9 g/dl (14.0-18.0); Imm Gran Abs Auto 0.17 X10*3/uL (0.00-0.03); Imm Gran Pct Auto 1.4 % (0.0-0.4); Lymphocytes Absolute Auto 1.9 X10*3/uL (1.2-4.9); Lymphocytes Percent Auto 15.3 % (20-40); MANUAL DIFF FLAG NO; Mean Corpuscular HGB Conc 31.2 g/dl (31.0-36.0); Mean Corpuscular Hemoglobin 29.1 pg (27.0-33.0); Mean Corpuscular Volume 93.2 fL (80-98); Mean Platelet Volume 11.2 fL (9.4-12.4); Monocytes Absolute Auto 0.7 X10*3/uL (0.1-1.2); Monocytes Percent Auto 5.7 % (2-11); Neutrophils Percent Auto 73.9 % (45-73); Platelet Count 246 X10*3/uL (160-400); Red Cell Distribution Width 15.9 % (11.0-16.0); White Blood Count 12.2 X10*3/uL (4.8-10.8)
[2020-03-02 15:58] LABS: Lactic Acid 2.7 mmol/L (0.5-2.0)
[2020-03-02 16:00] VITALS: RESP 18
[2020-03-02 16:14] LABS: Alanine Aminotransferase 27 U/L (0-40); Albumin Level 3.5 g/dL (3.5-5.0); Alkaline Phosphatase 107 U/L (39-117); Aspartate Amino Transferase 16 U/L (5-37); Bilirubin Direct < 0.2 mg/dL (0.0-0.5); Bilirubin Total 0.3 mg/dL (0.0-1.0); C Reactive Protein 28.94 mg/dL (< or = 0.50); Total Protein 6.8 g/dL (6.5-8.0)
[2020-03-02] MEDS: cefTRIAXone sodium 1 GM in 0.9 % Sodium Chloride 50 ML IV (16:24)
[2020-03-02] MEDS: Acetaminophen 325 MG TABLET 650 MG PO (16:24)
[2020-03-02] MEDS: 0.9 % Sodium Chloride 1,000 ML 999 ML IVCONT ×2 (16:27→17:46)
[2020-03-02 16:32] LABS: Anion Gap 19 (12-20); Blood Urea Nitrogen 31 mg/dL (9-16); Calcium 9.3 mg/dL (8.4-10.2); Carbon Dioxide 20 mmol/L (22-29); Chloride 120 mmol/L (96-108); Creatinine Clr Calc Pharmacy 60.3; Estimated Glomerular Filt Rate 54; Glucose Random 149 mg/dL (60-115); Potassium 3.8 mmol/l (3.3-5.1)
[2020-03-02 16:41] LABS: Sodium 155 mmol/L (135-145)
[2020-03-02 17:01] LABS: Influenza A PCR NEGATIVE (Negative); Influenza B PCR NEGATIVE (Negative); Resp Syncy Virus RNA Qual PCR NEGATIVE (Negative); SARS COV2 PCR INHOUSE NEGATIVE (Negative)
[2020-03-02 17:32] LABS: Reflex Lactate? Lactic Acid Added
[2020-03-02] MEDS: Azithromycin 500 MG in 0.9 % Sodium Chloride 250 ML 125 MG IV (17:46)
[2020-03-02 18:07] LABS: Glucose Urine UA NEG (NEG); Leukocyte Esterase Urine 1+ (NEG); Nitrite Urine POS (NEG); PH 5.5 (5.0-8.0); Specific Gravity - Urine 1.015 (1.005-1.025); Urine Blood 1+ (NEG); Urine Ketones NEG (NEG); Urine Protein 1+ MG/DL (NEG-TRACE)
[2020-03-02 18:11] LABS: Appearance Urine CLEAR; Color Urine YELLOW
[2020-03-02] MEDS: Dextrose 5 % 1,000 ML 75 ML IVCONT (18:23)
[2020-03-02 18:29] LABS: Amphetamine Screen Urine Not Detected (Not Detect); Barbiturates, Urine Not Detected (Not Detect); Benzodiazepines Screen Urine Not Detected (Not Detect); Cannabinoid Screen Urine Not Detected (Not Detect); Cocaine Screen Urine Not Detected (Not Detect); Opiate Screen Urine Not Detected (Not Detect); Phencyclidine Screen Urine Not Detected (Not Detect)
[2020-03-02 18:31] LABS: Bacteria Urine 3+ /LPF
--- NOTE | 2020-03-02 18:31 | P.EN_ITS ---
Event Note Date of Service: 03/02/20 Event Note: Patient seen and examined independently and was present during antonio portion of E/M service. Agree with midlevel's history, physical, assessment, and plan. 44M presented with fever, AMS severe sepsis poa due to CAP/UTI, complicated by metabolic encephalopathy and h ypernatremia iv abx, check ct chest history of DI likely due to chronic lithium (now off) D5w, monitor
[2020-03-02 19:00] LABS: ~Lactic Acid-LAB USE ONLY 0.9 mmol/L (0.5-2.0)
[2020-03-02 19:48] LABS: Osmolality Urine 327 mosm/kg (373-1093)
--- NOTE | 2020-03-02 20:04 | ECG_ITS ---
Test Reason : SOB Blood Pressure : / mmHG Vent. Rate : 084 BPM Atrial Rate : 084 BPM P-R Int : 142 ms QRS Dur : 088 ms QT Int : 388 ms P-R-T Axes : 014 -01 -18 degrees QTc Int : 458 ms Normal sinus rhythm Nonspecific T wave abnormality Inferior leads Abnormal ECG When compared with ECG of 28-SEP-2018 20:02, Nonspecific T wave abnormality now evident in Inferior leads Referred By: Emily Gan Electronically Signed By:OSMIN RYAN MD
[2020-03-02 20:18] VITALS: BP 98/63; PULSE 83; RESP 18; TEMP 36.6; O2SAT 96
[2020-03-02 20:34] VITALS: BP 119/63; PULSE 84; RESP 18; TEMP 36.9; O2SAT 97
--- NOTE | 2020-03-02 20:39 | HP_ITS ---
DATE OF SERVICE: 03/02/2020 CHIEF COMPLAINT: Confusion. HISTORY OF PRESENT ILLNESS: 44-year-old man, presenting to the ER after being seen by his primary care provider. Apparently, he had seemed to be more confused recently. He lives in a snf, however, his mother is very involved in his care. She did report that he has lost about 30 pounds over the last several months unintentionally. He does have a history of diabetes insipidus and generally he drinks about 120 ounces of water a day. She reports that he has been compliant with this and he has been eating and drinking like normal. He also apparently had a fever while at the snf. He is somewhat vague, but denies any chest pain, shortness of breath, or cough. In the ER, he was noted to have an elevated sodium of 155, chloride 120, creatinine 1.44, lactic acid 2.7, white blood cell count 12.2. Urinalysis positive for infection. Coronavirus PCR negative. Chest x-ray showed low lung volumes with coarse interstitial opacities. He had a low-grade fever of 100.9 and his blood pressure was stable. He received Tylenol, IV fluid, D5W, ceftriaxone, and Rocephin while in the ER. He will be admitted for further management and treatment of severe sepsis related to community-acquired pneumonia and hypernatremia. PAST MEDICAL HISTORY: 1. Diabetes insipidus. 2. Diabetes mellitus. 3. Hyperlipidemia. 4. Anxiety. 5. History of PTSD. 6. Schizoaffective disorder. 7. History of mental retardation. SOCIAL HISTORY: Lives in a snf. According to his mother, he does not use any alcohol, tobacco, or illicit drugs. FAMILY HISTORY: No cardiac disease noted. ALLERGIES: PENICILLIN G. MEDICATIONS: 1. Ascorbic acid 500 mg daily. 2. Benztropine 1 tab p.o. b.i.d. 3. Cholecalciferol 1 cap p.o. daily. 4. Clozapine 50 mg p.o. daily. 5. Fluticasone propionate 1 spray intranasally daily. 6. Glipizide tab daily. 7. Haloperidol 2.5 mg daily. LABORATORY DATA: WBC 12.2, hemoglobin 9.9, hematocrit 31.7, platelets 246. COVID negative. Sodium 155, potassium 3.8, chloride is 120, bicarb is 28, BUN is 31, creatinine is 1.44, glucose is 149. Lactic acid is 2.7. Urinalysis positive for infection. REVIEW OF SYSTEMS: Unable to obtain as the patient does have some confusion and history of mental retardation. PHYSICAL EXAMINATION: CONSTITUTIONAL: The patient is resting in bed. VITAL SIGNS: 100.9, 114, 20, 119/74, 95% on room air. SKIN: Intact without rashes or open sores. HEENT: Head is normocephalic, atraumatic. Eyes, pupils are PERRLA. Sclerae anicteric. Mouth and Throat: Mucous membranes are intact and moist. NECK: Supple. No lymphadenopathy. No JVD noted. CHEST: Clear to auscultation without wheezes, rhonchi, or rales. HEART: Regular rate and rhythm. Clear S1, S2. No murmurs, rubs, or gallops. ABDOMEN: Positive bowel sounds. Abdomen is soft, nontender. No hepatomegaly or splenomegaly noted. NEURO: The patient is alert, oriented, somewhat vague and mildly confused. No focal deficits noted. ASSESSMENT AND PLAN: 44-year-old man, who is being admitted with hypernatremia, likely related to history of diabetes insipidus. He is also noted to have a community-acquired pneumonia with a negative coronavirus PCR. 1. Severe sepsis. Fever, tachycardia, lactic acidosis. Follow blood cultures. 2. Community-acquired pneumonia. Rocephin, azithromycin, continue supplemental oxygen as needed. 3. Hypernatremia. Likely related to diabetes insipidus. D5W, Nephrology to follow, follow BMP q.4 hours. 4. History of schizoaffective disorder. Continue home medications. 5. Hyperlipidemia. Continue statin. 6. History of PE. Continue warfarin. Check PT/INR daily. 7. Urinary tract infection. Will be treated with Rocephin. Follow urine culture. 8. Acute kidney injury on chronic kidney disease. Continue IV fluids. Follow BMP closely. 9. Deep venous thrombosis prophylaxis with warfarin. 10. Case discussed with Dr. Connelly. 11. Full code. RAUL Walton MD JR/GABBY / [id number]
[2020-03-02] MEDS: Dextrose 5 % 1,000 ML 100 ML IVCONT (21:24)
[2020-03-02 21:28] LABS: Glucose, Whole Blood 212 mg/dL (60-115)
[2020-03-02] MEDS: Topiramate 25 MG TABLET 50 MG PO (22:04)
[2020-03-02] MEDS: cloZAPine 100 MG TABLET 300 MG PO (22:04)
[2020-03-02] MEDS: Insulin Lispro 100 UNIT/ML 3 ML VIAL SUBCUT (22:04)
[2020-03-02] MEDS: Benztropine Mesylate 1 MG TABLET PO (22:05)
[2020-03-02] MEDS: 0.9 % Sodium Chloride Flush 3 ML SYRINGE IVFLUSH (22:05)
[2020-03-02] MEDS: HaloperidoL 5 MG TABLET PO (22:05)
[2020-03-02 23:22] VITALS: BMI 22.1
[2020-03-02 23:26] VITALS: BP 144/85; PULSE 91; RESP 18; TEMP 36.8; O2SAT 97
--- NOTE | 2020-03-03 | CT_ITS ---
EXAMINATION: CT CHEST WITHOUT CONTRAST CLINICAL INFORMATION: Fever and chills. Rule out pneumonia. COMPARISON: Previous chest x-rays most recent from yesterday and chest CT scans most recent December [address] scan September 2018 TECHNIQUE: Multidetector volumetric CT imaging of the chest was done. Axial MIP volume rendering provided. Sagittal and coronal reformatted images were obtained. This CT examination was performed using dose optimization techniques as appropriate, variously including the following: *Automated exposure control *Adjustment of mA and/or kV according to patient size (this includes techniques or standardized protocols for targeted exams where dose is matched to indication/reason for exam; i.e. extremities or head) *Use of iterative reconstruction technique DLP: 212 mGy-cm FINDINGS: LUNGS: There is artifact from respiratory motion. There is a small 2 mm calcified left upper lobe nodule axial image 81 series 5. There is a small 2 mm right upper lobe nodule axial image 161 series 5. There is a 3 mm calcified left upper lobe nodule axial image 188 series 5. These are stable. Evaluation of the lung bases is limited due to artifact from respiratory motion. No evidence of a pneumonia is seen. There is increased soft tissue seen dependently adjacent to the posterior wall of the distal trachea for example axial image 16 series 4 and sagittal reconstructed image 50 this is new from previous exams. This some of this appears to contain air and may be related to patient secretions. MEDIASTINUM: There are prominent mediastinal lymph nodes. These have fatty centers or chi and are similar to previous exams. Largest lymph nodes are AP window lymph nodes, largest measuring 1.1 x 1.8 cm in transverse and AP dimension. The mediastinum is otherwise normal. PLEURA: There is no pleural effusion. No pleural mass or thickening. AXILLA: No lymphadenopathy. UPPER ABDOMEN: There is fullness of the left renal collecting system questionable for hydronephrosis. This is similar to previous exams. OSSEOUS STRUCTURES: There are degenerative changes of the spine. CT/CT chest wo con IMPRESSION: Limited exam due to marked artifact. No evidence of pneumonia. Small calcified and noncalcified pulmonary nodules similar to previous exams. Prominent mediastinal lymph nodes also stable from previous exam. Increased soft tissue seen dependently adjacent to the posterior tracheal wall. This may be related to patient secretions.
[2020-03-03 01:53] LABS: Sodium 153 mmol/L (135-145)
[2020-03-03 01:54] LABS: Anion Gap 14 (12-20); Blood Urea Nitrogen 29 mg/dL (9-16); Calcium 8.3 mg/dL (8.4-10.2); Carbon Dioxide 22 mmol/L (22-29); Chloride 121 mmol/L (96-108); Estimated Glomerular Filt Rate 59; Glucose Random 173 mg/dL (60-115); Potassium 3.8 mmol/l (3.3-5.1)
[2020-03-03 04:00] VITALS: BP 121/73; PULSE 95; RESP 18; TEMP 36.8; O2SAT 95
[2020-03-03] MEDS: Dextrose 5 % 1,000 ML 100 ML IVCONT (06:22)
[2020-03-03 06:31] LABS: MANUAL DIFF FLAG NO
[2020-03-03 06:45] LABS: INTERNATIONAL NORM RATIO 3.9 (0.9-1.1); Prothrombin Time 47.6 SEC (10.8-13.0)
[2020-03-03 06:48] LABS: Basophils Absolute Auto 0.1 X10*3/uL (0.0-0.2); Basophils Percent Auto 0.5 % (0-2); Eosinophils Absolute Auto 0.4 X10*3/uL (0.0-0.4); Eosinophils Percent Auto 4.1 % (0-4); Hematocrit 28.5 % (42-52); Hemoglobin 8.8 g/dl (14.0-18.0); Imm Gran Abs Auto 0.15 X10*3/uL (0.00-0.03); Imm Gran Pct Auto 1.5 % (0.0-0.4); Lymphocytes Absolute Auto 1.5 X10*3/uL (1.2-4.9); Lymphocytes Percent Auto 14.8 % (20-40); Mean Corpuscular HGB Conc 30.9 g/dl (31.0-36.0); Mean Corpuscular Hemoglobin 28.9 pg (27.0-33.0); Mean Corpuscular Volume 93.4 fL (80-98); Monocytes Absolute Auto 0.5 X10*3/uL (0.1-1.2); Monocytes Percent Auto 5.3 % (2-11); NRBC Pct Auto 0.2 /100WBC (0.0-0.2); Neutrophils Absolute Auto 7.5 X10*3/uL (2.0-8.3); Neutrophils Percent Auto 73.8 % (45-73); Platelet Count 219 X10*3/uL (160-400); Red Blood Count 3.05 X10*6/uL (4.60-5.80); Red Cell Distribution Width 15.9 % (11.0-16.0); White Blood Count 10.2 X10*3/uL (4.8-10.8)
[2020-03-03 07:27] VITALS: BP 107/65; PULSE 89; RESP 18; TEMP 36.9; O2SAT 96
[2020-03-03 07:42] LABS: Glucose, Whole Blood 234 mg/dL (60-115)
[2020-03-03] MEDS: Insulin Lispro 100 UNIT/ML 3 ML VIAL SUBCUT (08:18)
[2020-03-03] MEDS: 0.9 % Sodium Chloride Flush 3 ML SYRINGE IVFLUSH ×3 (08:19→20:37)
[2020-03-03] MEDS: Ascorbic Acid 500 MG TABLET PO (08:20)
[2020-03-03] MEDS: Topiramate 25 MG TABLET PO (08:20)
[2020-03-03] MEDS: metFORMIN HCl 1,000 MG TABLET 1000 MG PO ×2 (08:21→17:46)
[2020-03-03] MEDS: Benztropine Mesylate 1 MG TABLET PO ×2 (08:21→20:36)
[2020-03-03] MEDS: Cholecalciferol (Vitamin D3) 25 MCG TABLET PO (08:21)
[2020-03-03] MEDS: Fluticasone Propionate Nasal 16 GM SPRAY 1 SPRAY NOSTRIL-B (08:21)
[2020-03-03] MEDS: cloZAPine 25 MG TABLET 50 MG PO (08:21)
[2020-03-03] MEDS: Atorvastatin Calcium 80 MG TABLET PO (08:21)
[2020-03-03] MEDS: Multivitamin TABLET 1 TAB PO (08:21)
[2020-03-03] MEDS: Sertraline HCL 100 MG TABLET 150 MG PO (08:28)
[2020-03-03] MEDS: glipiZIDE 5 MG TABLET 2.5 MG PO (08:29)
[2020-03-03] MEDS: HaloperidoL 5 MG TABLET 2.5 MG PO (08:29)
--- NOTE | 2020-03-03 09:35 | P.PNIM_ITS ---
Subjective Subjective Date of Service: 03/03/20 Interval History: feeling well Cardiovascular Cardiovascular: Reports no additional cardiovascular complaints Respiratory Respiratory: Reports no additional respiratory complaints Physical Exam Vital Signs: Vital Signs: Last Vital Signs Temp 98.5 F 03/03/20 07:27 Pulse 89 03/03/20 07:27 Resp 18 03/03/20 07:27 BP 107/65 03/03/20 07:27 Pulse Ox 96 03/03/20 07:27 Body Mass Index 22.1 General: AO X 3, no acute distress Resp: CTA bilateral CVS: S1,S2,RRR GI: soft, non tender, non distended Neuro: motor grossly intact Psych: appropriate affect Objective Data Current Medications Generic Name Dose Route Start Last Admin Trade Name Freq PRN Reason Stop Dose Admin Acetaminophen 650 mg 03/02/20 20:04 Acetaminophen 325 Mg Tablet PO Q6H PRN Pain, Mild (Pain Scale 1-3) Ascorbic Acid 500 mg 03/03/20 09:00 03/03/20 08:20 Ascorbic Acid 500 Mg Tablet PO 500 mg DAILY RUBEN Administration Atorvastatin Calcium 80 mg 03/03/20 09:00 03/03/20 08:21 Atorvastatin Calcium 80 Mg Tablet PO 80 mg DAILY RUBEN Administration Benztropine Mesylate 1 mg 03/02/20 21:00 03/03/20 08:21 Benztropine Mesylate 1 Mg Tablet PO 1 mg BID RUBEN Administration Clozapine 300 mg 03/02/20 21:00 03/02/20 22:04 Clozapine 100 Mg Tablet PO 300 mg BEDTIME RUBEN Administration Clozapine 50 mg 03/03/20 09:00 03/03/20 08:21 Clozapine 25 Mg Tablet PO 50 mg DAILY RUBEN Administration Fluticasone Propionate 1 spray 03/03/20 09:00 03/03/20 08:21 Fluticasone Propionate Nasal 16 Gm [place] NOSTRIL-B 1 spray DAILY RUBEN Administration Glipizide 2.5 mg 03/03/20 09:00 03/03/20 08:29 Glipizide 5 Mg Tablet PO 2.5 mg DAILY RUBEN Administration Haloperidol 5 mg 03/02/20 21:00 03/02/20 22:05 Haloperidol 5 Mg Tablet PO 5 mg BEDTIME RUBEN Administration Haloperidol 2.5 mg 03/03/20 09:00 03/03/20 08:29 Haloperidol 5 Mg Tablet PO 2.5 mg DAILY RUBEN Administration Azithromycin 500 mg/ Sodium 250 mls @ 125 mls/hr 03/03/20 17:00 Chloride IV Q24H RUBEN Dextrose 1,000 mls @ 100 mls/hr 03/02/20 20:04 03/03/20 06:22 D5w IVCONT 100 mls/hr .Q10H RUBEN Administration Ceftriaxone Sodium 1 gm/ 50 mls @ 100 mls/hr 03/03/20 15:00 Sodium Chloride IV Q24H RUBEN Insulin Human Lispro 0 unit 03/02/20 21:00 03/03/20 08:18 Insulin Lispro 100 Unit/Ml 3 Ml Vial SUBCUT 4 unit QIDACHS RUBEN Administration Protocol Metformin HCl 1,000 mg 03/03/20 08:00 03/03/20 08:21 Metformin Hcl 1,000 Mg Tablet PO 1,000 mg BIDWM RUBEN Administration Multivitamins/Vitamin C 1 tab 03/03/20 09:00 03/03/20 08:21 Multivitamin Tablet PO 1 tab DAILY RUBEN Administration Ondansetron HCl 4 mg 03/02/20 20:04 Ondansetron Hcl 4 Mg/2 Ml Vial IVPUSH Q8H PRN Nausea and Vomiting Pharmacy Consult 1 each 03/02/20 17:53 Consult Rx Perform Med Rec MISCELLANE ONCE PRN Consult order Polyethylene Glycol 17 gm 03/02/20 20:19 Polyethylene Glycol 3350 17 Gm Powd.Pack PO DAILY PRN Constipation Sertraline HCl 150 mg 03/03/20 09:00 03/03/20 08:28 Sertraline Hcl 100 Mg Tablet PO 150 mg DAILY RUBEN Administration Sodium Chloride 3 ml 03/03/20 00:00 03/03/20 08:19 0.9 % Sodium Chloride Flush 3 Ml Syringe IVFLUSH 3 ml QSHIFT RUBEN Administration Topiramate 25 mg 03/03/20 09:00 03/03/20 08:20 Topiramate 25 Mg Tablet PO 25 mg DAILY RUBEN Administration Topiramate 50 mg 03/02/20 21:00 03/02/20 22:04 Topiramate 25 Mg Tablet PO 50 mg BEDTIME RUBEN Administration Vitamin D 25 mcg 03/03/20 09:00 03/03/20 08:21 Cholecalciferol (Vitamin D3) 25 Mcg Tablet PO 25 mcg DAILY RUBEN Administration Warfarin Sodium 2.5 mg 03/06/20 16:00 Warfarin Sodium 2.5 Mg Tablet PO SUSA@1600 [facility] Warfarin Sodium 5 mg 03/05/20 16:00 Warfarin Sodium 5 Mg Tablet PO MOFR@1600 [facility] Labs CBC & Chem 7: 03/03/20 05:26 03/03/20 00:37 Microbiology Microbiology Results: Microbiology 03/02/20 15:27 Blood - Venous Blood Culture - Preliminary Assessment and Plan (1) UTI (urinary tract infection): Status: Acute (2) Severe sepsis: Status: Acute (3) Acute hypernatremia: Status: Acute (4) Acute metabolic encephalopathy: Status: Acute (5) Pneumonia: Status: Acute (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, on coumadin indefinitely Status: Inactive (7) Diabetes insipidus: Status: Acute (8) Diabetes mellitus: Status: Acute (9) Schizo affective schizophrenia: Status: Acute (10) Primary polydipsia: Status: Acute Assessment and Plan: 44M presented with fever, AMS Severe sepsis present on admission due to pneumonia and urinary tract infection with Gram-negative bacteremia complicated by metabolic encephalopathy continue ceftriaxone and azithromycin, follow-up cultures encephalopathy seems to have resolved hypernatremia due to diabetes insipidus, likely due to history of lithium, now no longer on lithium will stop D5w to see if he can maintain with just po free water intake, does have history of hyponatremia due to primary polydipsia, will need to monitor BMP closely history of saddle pulmonary embolism Coumadin schizoaffective disorder clozapine, Haldol, Zoloft, Topamax hyperlipidemia statin diabetes glipizide, metformin, insulin weight loss mother reports 30 lb over the last 6 months should have outpatient workup
--- NOTE | 2020-03-03 09:55 | MHC.CDI.CONC ---
CDI Concurrent Query Service Date: 03/03/20 Documentation Clarification: Please clarify if you are treating a probable/suspected/likely or confirmed: Consistency: CJ on CKD Stage 1-5 (Txt, rule out, resolved) Please specify if known Provider Response: CKD Stage 2 PLEASE DO NOT DELETE/MODIFY EXISTING CONTENT Additional information is needed in order to code to the highest accuracy and appropriate Severity of Illness (SOI). Please clarify the information noted below in your progress notes and discharge summary. Risk Factors/Clinical Indicators/Treatments H&P: Assessment/plan: CJ on CKD continue IV fluids, follow BMP closely. BUN 31 29 CR 1.44 1.32 GRF 54 59 CDS: Mitzi Washington CCS, CDIS Contact Number: [phone] Please Review the information above and exercise your independent professional judgment in responding to the query. If you concur, pleas document in the PROGRESS NOTES and DISCHARGE SUMMARY. If you do not agree with the query, please document in the query above. THIS QUERY IS PART OF THE PERMANENT MEDICAL RECORD
[2020-03-03 11:31] VITALS: BP 114/69; PULSE 102; RESP 20; TEMP 36.6; O2SAT 98
[2020-03-03 11:52] LABS: Glucose, Whole Blood 85 mg/dL (60-115)
--- NOTE | 2020-03-03 11:55 | P.CONNP_ITS ---
History of Present Illness Reason for Consult Consult date: 03/03/20 Reason for consult: hyperNa Chief Complaint Chief complaint: Hypernatremia History of Present Illness Narrative: ASk to see PT re hyperNa and h/o NDI presumed d/t prior Lithoium use. On adm SNa was high and has been mildly high on prior labs..interestingly he had an espoideod of hypoNa 09/2018 and at that time he correct relatively fast and he was given DDAVP and looks like he did not respond to the DDAVP which would be again c/w NDI. He was adm with ques of pnuemonia. His mental status is hard to asses as its unclear what his bsl is The EHR is clear that he has large PO fluid intake on dialy bassis and is labeled as having NDI. 1. Diabetes insipidus...H/O Winter Use in past 2. Diabetes mellitus. 3. Hyperlipidemia. 4. Anxiety. 5. History of PTSD. 6. Schizoaffective disorder. 7. History of mental retardation. [facility] Past Medical History Medical History (Updated 03/03/20 @ 09:37 by Liang Connelly MD) Anxiety Diabetes insipidus Diabetes mellitus High cholesterol PTSD (post-traumatic stress disorder) Saddle pulmonary embolus Schizo affective schizophrenia Social History Social History Household Members: Other Housing: Other Housing Other:: [facility] Alcohol intake: never Smoking Status: Never smoker Use of substances other than those prescribed or required for medical reasons: No Advance Directives: Yes Advance Directives on File: Yes Advance Directives Date on File: 01/22/20 Do you have thoughts of harming others: None Do you have a plan to hurt others: No Plan Recently lost weight without trying: Unsure service: No Current occupational status: disabled Meds Allergies Allergy/AdvReac Type Severity Reaction Status Date / Time penicillin G Allergy Unknown Unknown Verified 03/03/20 06:07 Penicillins [PENICILLINS] Allergy Unknown Unknown Verified 03/03/20 06:07 Home Medications Medication Instructions Recorded Confirmed Type ascorbic acid (vitamin C) [Vitamin 1 tab PO DAILY 03/02/20 03/02/20 History C] benztropine 1 tab PO BID 03/02/20 03/02/20 History cholecalciferol (vitamin D3) 1 cap PO DAILY 03/02/20 03/02/20 History [Vitamin D3] clozapine 50 mg PO DAILY 03/02/20 03/02/20 History clozapine 300 mg PO BEDTIME 03/02/20 03/02/20 History fluticasone propionate 1 spray INTRANASAL DAILY 03/02/20 03/02/20 History glipizide 0.5 tab PO DAILY 03/02/20 03/02/20 History haloperidol 2.5 mg PO DAILY 03/02/20 03/02/20 History haloperidol 5 mg PO BEDTIME 03/02/20 03/02/20 History metformin 1 tab PO BID 03/02/20 03/02/20 History multivitamin 1 tab PO DAILY 03/02/20 03/02/20 History polyethylene glycol 3350 [Miralax] 17 g PO DAILY PRN 03/02/20 03/02/20 History sertraline 1.5 tab PO DAILY 03/02/20 03/02/20 History simvastatin 1 tab PO DAILY 03/02/20 03/02/20 History topiramate 25 mg PO DAILY 03/02/20 03/02/20 History topiramate 50 mg PO BEDTIME 03/02/20 03/02/20 History warfarin 2.5 mg PO SUSA@1600 03/02/20 03/02/20 History warfarin 5 mg PO MOFR@1600 03/02/20 03/02/20 History Physical Exam Vital Signs: Last Vital Signs Temp 97.9 F 03/03/20 11:31 Pulse 102 H 03/03/20 11:31 Resp 20 03/03/20 11:31 BP 114/69 03/03/20 11:31 Pulse Ox 98 03/03/20 11:31 Body Mass Index 22.1 General: AO X 3, no acute distress Resp: CTA bilateral CVS: S1,S2,RRR GI: soft, non tender, non distended Neuro: motor grossly intact Psych: appropriate affect Results Lab Results Result Diagrams: 03/03/20 05:26 03/03/20 00:37 Lab results: Chemistry 03/02/20 03/03/20 15:27 00:37 Sodium 155 H 153 H Potassium 3.8 3.8 Carbon Dioxide 20 L 22 BUN 31 H 29 H Creatinine 1.44 H 1.32 Calcium 9.3 D 8.3 L D Hematology 03/02/20 03/03/20 15:27 05:26 WBC 12.2 H 10.2 Hgb 9.9 L D 8.8 L Plt Count 246 219 Urinalysis 03/02/20 17:41 Urine Color YELLOW Urine Appearance CLEAR Urine pH 5.5 Ur Specific [place] 1.015 Urine Protein 1+ H Urine Glucose (UA) NEG Urine Ketones NEG Urine Blood 1+ H Urine Nitrite POS H Ur Leukocyte Esterase 1+ H Urine RBC 1-4 Urine WBC 15-29 H Ur Squamous Epith Cells NONE Urine Studies 03/02/20 15:24 Urine Osmolality 327 L Laboratory Tests 10/08/18 01/14/20 02/06/20 09:35 13:46 09:51 Sodium 148 H 151 H 147 H 03/02/20 03/03/20 15:27 00:37 Sodium 155 H 153 H Assessment and Plan (1) UTI (urinary tract infection): Status: Acute (2) Severe sepsis: Status: Acute (3) Acute hypernatremia: Status: Acute (4) Acute metabolic encephalopathy: Status: Acute (5) Pneumonia: Qualifiers: Laterality: left Lung location: lower lobe of lung Pneumonia type: due to unspecified organism Qualified Code(s): J18.9 - Pneumonia, unspecified organism Status: Acute (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 HyperN w H/O NDI and SNA 155 on adm slt decr to 153 this am; typically NDI PTs will self-regualte and drink adequate PO fluids to avoid SNa > 148 but with his recent acute illness he may not be able to keep up interestingly back in 09/2018 he had an espideo of hypoNa but looking at his labs they have been consiitently normla SNA or ellveated to high 140's to low 150's 2. CKD 3: c/w DN and/o injusry form Li in hte past 3. CAP REC: give him acces to fluids to see if jhe will self regualte and get his SNA down to normal range but may need IV hypotonic fluids to help; follow SNa; no need to give DDAVP to r/o CDI given history and prior ineffectiveness of DDAVP ( 09/2018) Could try meds like thiazides or NSAIDS to paradxoically decr UOP BUT hte risk of complication from these meds outweighs there potenetial benefit Will follow with team
--- NOTE | 2020-03-03 13:29 | MHC.CM.PN ---
CM spoke with HCP/POA/guardian patient's mom Nathalia Amaya [phone] who reports patient is fairly independent but needs constant guidance with care r/t schizophrenia and mental retardation. Patient lives in a Home who cares for people but is not a retirement . HCP/POA/guardianship papers are all on chart. Patient's mom is very involved with patient's care. Discussed discharge plan, return to current home with resumption of services from [facility]. Referral made via [employer]. Patient's mom will provide transportation. CM will continue to follow patient for discharge needs.
[2020-03-03 14:02] VITALS: BMI 22.1
[2020-03-03] MEDS: cefTRIAXone sodium 1 GM in 0.9 % Sodium Chloride 50 ML IV (15:35)
[2020-03-03 16:00] VITALS: BP 109/68; PULSE 99; RESP 18; TEMP 36.3; O2SAT 98
[2020-03-03 17:01] LABS: Glucose, Whole Blood 96 mg/dL (60-115)
[2020-03-03] MEDS: Azithromycin 500 MG in 0.9 % Sodium Chloride 250 ML 125 MG IV (17:46)
[2020-03-03 20:00] VITALS: BP 110/71; PULSE 80; RESP 16; TEMP 36.2; O2SAT 98
[2020-03-03] MEDS: Topiramate 25 MG TABLET 50 MG PO (20:37)
[2020-03-03] MEDS: cloZAPine 100 MG TABLET 300 MG PO (20:37)
[2020-03-03] MEDS: HaloperidoL 5 MG TABLET PO (20:37)
[2020-03-03 21:53] LABS: Anion Gap 18 (12-20); Carbon Dioxide 23 mmol/L (22-29); Chloride 111 mmol/L (96-108); Potassium 3.7 mmol/l (3.3-5.1); Sodium 148 mmol/L (135-145)
[2020-03-03 22:38] LABS: Glucose, Whole Blood 107 mg/dL (60-115)
[2020-03-03 23:26] VITALS: BP 131/78; PULSE 92; RESP 18; TEMP 37; O2SAT 97
[2020-03-04 03:45] VITALS: BP 128/68; PULSE 98; RESP 18; TEMP 37; O2SAT 98
[2020-03-04 06:59] LABS: MANUAL DIFF FLAG NO
[2020-03-04 07:10] LABS: Basophils Absolute Auto 0.1 X10*3/uL (0.0-0.2); Basophils Percent Auto 0.4 % (0-2); Eosinophils Absolute Auto 0.8 X10*3/uL (0.0-0.4); Eosinophils Percent Auto 7.4 % (0-4); Hematocrit 28.4 % (42-52); Hemoglobin 8.8 g/dl (14.0-18.0); Imm Gran Abs Auto 0.11 X10*3/uL (0.00-0.03); Lymphocytes Absolute Auto 2.4 X10*3/uL (1.2-4.9); Lymphocytes Percent Auto 21.3 % (20-40); Mean Corpuscular Hemoglobin 28.9 pg (27.0-33.0); Mean Corpuscular Volume 93.1 fL (80-98); Monocytes Absolute Auto 0.5 X10*3/uL (0.1-1.2); Monocytes Percent Auto 4.2 % (2-11); Neutrophils Absolute Auto 7.4 X10*3/uL (2.0-8.3); Neutrophils Percent Auto 65.7 % (45-73); Platelet Count 233 X10*3/uL (160-400); Red Blood Count 3.05 X10*6/uL (4.60-5.80); Red Cell Distribution Width 15.5 % (11.0-16.0); White Blood Count 11.3 X10*3/uL (4.8-10.8)
[2020-03-04 07:23] LABS: Glucose, Whole Blood 132 mg/dL (60-115)
[2020-03-04 08:00] VITALS: BP 103/67; PULSE 81; RESP 18; TEMP 36.4; O2SAT 95
[2020-03-04 08:05] LABS: Blood Urea Nitrogen 25 mg/dL (9-16); Calcium 8.3 mg/dL (8.4-10.2); Estimated Glomerular Filt Rate > 60; Glucose Fasting 163 mg/dL (60-99)
[2020-03-04 08:14] LABS: Anion Gap 16 (12-20); Carbon Dioxide 21 mmol/L (22-29); Chloride 116 mmol/L (96-108); Potassium 3.9 mmol/l (3.3-5.1); Sodium 149 mmol/L (135-145)
[2020-03-04] MEDS: Sertraline HCL 100 MG TABLET 150 MG PO (08:15)
[2020-03-04] MEDS: metFORMIN HCl 1,000 MG TABLET 1000 MG PO (08:17)
[2020-03-04] MEDS: Topiramate 25 MG TABLET PO (08:17)
[2020-03-04] MEDS: Cholecalciferol (Vitamin D3) 25 MCG TABLET PO (08:17)
[2020-03-04] MEDS: HaloperidoL 5 MG TABLET 2.5 MG PO (08:18)
[2020-03-04] MEDS: Ascorbic Acid 500 MG TABLET PO (08:18)
[2020-03-04] MEDS: cloZAPine 25 MG TABLET 50 MG PO (08:19)
[2020-03-04] MEDS: Benztropine Mesylate 1 MG TABLET PO ×2 (08:19→22:36)
[2020-03-04] MEDS: Multivitamin TABLET 1 TAB PO (08:19)
[2020-03-04] MEDS: glipiZIDE 5 MG TABLET 2.5 MG PO (08:19)
[2020-03-04] MEDS: Atorvastatin Calcium 80 MG TABLET PO (08:19)
[2020-03-04] MEDS: 0.9 % Sodium Chloride Flush 3 ML SYRINGE IVFLUSH ×2 (08:20→18:24)
[2020-03-04] MEDS: Fluticasone Propionate Nasal 16 GM SPRAY 1 SPRAY NOSTRIL-B (08:21)
[2020-03-04 08:43] LABS: INTERNATIONAL NORM RATIO 3.1 (0.9-1.1); Prothrombin Time 36.7 SEC (10.8-13.0)
[2020-03-04 11:11] LABS: Glucose, Whole Blood 77 mg/dL (60-115)
--- NOTE | 2020-03-04 11:27 | P.PNIM_ITS ---
Subjective Subjective Date of Service: 03/04/20 Interval History: feels well Cardiovascular Cardiovascular: Reports no additional cardiovascular complaints Respiratory Respiratory: Reports no additional respiratory complaints Physical Exam Vital Signs: Vital Signs: Last Vital Signs Temp 97.6 F 03/04/20 08:00 Pulse 81 03/04/20 08:00 Resp 18 03/04/20 08:00 BP 103/67 03/04/20 08:00 Pulse Ox 95 03/04/20 08:00 Body Mass Index 22.1 General: AO X 3, no acute distress Resp: CTA bilateral CVS: S1,S2,RRR GI: soft, non tender, non distended Neuro: motor grossly intact Psych: appropriate affect Objective Data Current Medications Generic Name Dose Route Start Last Admin Trade Name Freq PRN Reason Stop Dose Admin Acetaminophen 650 mg 03/02/20 20:04 Acetaminophen 325 Mg Tablet PO Q6H PRN Pain, Mild (Pain Scale 1-3) Ascorbic Acid 500 mg 03/03/20 09:00 03/04/20 08:18 Ascorbic Acid 500 Mg Tablet PO 500 mg DAILY RUBEN Administration Atorvastatin Calcium 80 mg 03/03/20 09:00 03/04/20 08:19 Atorvastatin Calcium 80 Mg Tablet PO 80 mg DAILY RUBEN Administration Benztropine Mesylate 1 mg 03/02/20 21:00 03/04/20 08:19 Benztropine Mesylate 1 Mg Tablet PO 1 mg BID RUBEN Administration Clozapine 300 mg 03/02/20 21:00 03/03/20 20:37 Clozapine 100 Mg Tablet PO 300 mg BEDTIME RUBEN Administration Clozapine 50 mg 03/03/20 09:00 03/04/20 08:19 Clozapine 25 Mg Tablet PO 50 mg DAILY RUBEN Administration Fluticasone Propionate 1 spray 03/03/20 09:00 03/04/20 08:21 Fluticasone Propionate Nasal 16 Gm Hilger NOSTRIL-B 1 spray DAILY RUBEN Administration Glipizide 2.5 mg 03/03/20 09:00 03/04/20 08:19 Glipizide 5 Mg Tablet PO 2.5 mg DAILY RUBEN Administration Haloperidol 5 mg 03/02/20 21:00 03/03/20 20:37 Haloperidol 5 Mg Tablet PO 5 mg BEDTIME RUBEN Administration Haloperidol 2.5 mg 03/03/20 09:00 03/04/20 08:18 Haloperidol 5 Mg Tablet PO 2.5 mg DAILY RUBEN Administration Azithromycin 500 mg/ Sodium 250 mls @ 125 mls/hr 03/03/20 17:00 03/03/20 20:41 Chloride IV Infused Q24H RUBEN Infusion Ceftriaxone Sodium 1 gm/ 50 mls @ 100 mls/hr 03/03/20 15:00 03/03/20 16:16 Sodium Chloride IV Infused Q24H RUBEN Infusion Insulin Human Lispro 0 unit 03/02/20 21:00 03/04/20 11:23 Insulin Lispro 100 Unit/Ml 3 Ml Vial SUBCUT Not Given QIDACHS [facility] Protocol Metformin HCl 1,000 mg 03/03/20 08:00 03/04/20 08:17 Metformin Hcl 1,000 Mg Tablet PO 1,000 mg BIDWM RUBEN Administration Multivitamins/Vitamin C 1 tab 03/03/20 09:00 03/04/20 08:19 Multivitamin Tablet PO 1 tab DAILY RUBEN Administration Ondansetron HCl 4 mg 03/02/20 20:04 Ondansetron Hcl 4 Mg/2 Ml Vial IVPUSH Q8H PRN Nausea and Vomiting Pharmacy Consult 1 each 03/02/20 17:53 Consult Rx Perform Med Rec MISCELLANE ONCE PRN Consult order Polyethylene Glycol 17 gm 03/02/20 20:19 Polyethylene Glycol 3350 17 Gm Powd.Pack PO DAILY PRN Constipation Sertraline HCl 150 mg 03/03/20 09:00 03/04/20 08:15 Sertraline Hcl 100 Mg Tablet PO 150 mg DAILY RUBEN Administration Sodium Chloride 3 ml 03/03/20 00:00 03/04/20 08:20 0.9 % Sodium Chloride Flush 3 Ml Syringe IVFLUSH 3 ml QSHIFT RUBEN Administration Topiramate 25 mg 03/03/20 09:00 03/04/20 08:17 Topiramate 25 Mg Tablet PO 25 mg DAILY RUBEN Administration Topiramate 50 mg 03/02/20 21:00 03/03/20 20:37 Topiramate 25 Mg Tablet PO 50 mg BEDTIME RUBEN Administration Vitamin D 25 mcg 03/03/20 09:00 03/04/20 08:17 Cholecalciferol (Vitamin D3) 25 Mcg Tablet PO 25 mcg DAILY RUBEN Administration Warfarin Sodium 2.5 mg 03/06/20 16:00 Warfarin Sodium 2.5 Mg Tablet PO SUSA@1600 [facility] Warfarin Sodium 5 mg 03/05/20 16:00 Warfarin Sodium 5 Mg Tablet PO MOFR@1600 [facility] Labs CBC & Chem 7: 03/04/20 05:25 03/04/20 05:25 Microbiology Microbiology Results: Microbiology 03/02/20 15:27 Blood - Venous Blood Culture - Preliminary Gram negative mayela 03/02/20 16:01 Blood - Venous Blood Culture - Preliminary No growth after 24 hours. 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, on coumadin indefinitely Status: Inactive (7) Diabetes insipidus: Status: Acute (8) Diabetes mellitus: Status: Acute (9) Schizo affective schizophrenia: Status: Acute (10) Primary polydipsia: Status: Acute Assessment and Plan: 44M presented with fever, AMS Severe sepsis present on admission due to pneumonia and urinary tract infection with Gram-negative bacteremia complicated by metabolic encephalopathy continue ceftriaxone and azithromycin, follow-up cultures, still pending encephalopathy seems to have resolved hypernatremia due to diabetes insipidus, likely due to history of lithium, now no longer on lithium now off D5w to see if he can maintain with just po free water intake, does have history of hyponatremia due to primary polydipsia, will need to monitor BMP closely history of saddle pulmonary embolism Coumadin schizoaffective disorder clozapine, Haldol, Zoloft, Topamax hyperlipidemia statin diabetes glipizide, metformin, insulin weight loss mother reports 30 lb over the last 6 months should have outpatient workup
[2020-03-04 11:35] VITALS: BP 126/81; PULSE 90; RESP 18; TEMP 36.4; O2SAT 96
--- NOTE | 2020-03-04 12:04 | PM.PNNEP ---
Subjective Subjective Principal diagnosis: hyperNa Interval history: Seen and examined. Events noted C/O being thirstty Physical Exam Vital Signs: Vital Signs: Last Vital Signs Temp 97.6 F 03/04/20 11:35 Pulse 90 03/04/20 11:35 Resp 18 03/04/20 11:35 BP 126/81 03/04/20 11:35 Pulse Ox 96 03/04/20 11:35 Body Mass Index 22.1 General: AO X 3, no acute distress Resp: CTA bilateral CVS: S1,S2,RRR GI: soft, non tender, non distended Neuro: motor grossly intact Psych: appropriate affect Assessment & Plan Assessment and plan (1) UTI (urinary tract infection): Status: Acute (2) Severe sepsis: Status: Acute (3) Acute hypernatremia: Status: Acute (4) Acute metabolic encephalopathy: Status: Acute (5) Pneumonia: Status: Acute (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 HyperN w H/O NDI and SNA 155 on adm slt decr to 153 and now 149 this am; typically NDI PTs will self-regualte and drink adequate PO fluids to avoid SNa > 148 but with his recent acute illness he may not be able to keep up interestingly back in 09/2018 he had an espideo of hypoNa but looking at his labs they have been o/w consistently normal SNA or ellveated to high 140's to low 150's 2. CKD 3: c/w DN and/o injusry form Li in hte past 3. CAP REC: cont ot encourage to drink ad-blake---give him acces to fluids to see if jhe will self regualte and get his SNA down to normal range but may need IV hypotonic fluids to help; follow SNa; no need to give DDAVP to r/o CDI given history and prior ineffectiveness of DDAVP ( 09/2018) Could try meds like thiazides or NSAIDS to paradxoically decr UOP BUT prefer to avoid given th risk of complication from these meds outweighs there potenetial benefit Will follow with team Time Spent With Patient Time: Total time spent is greater than 50% in coordination of care (as documented) at patient's floor/unit and/or counseling patient: Procedures Abscess I/D Date of Service: 03/04/20
[2020-03-04] MEDS: cefTRIAXone sodium 1 GM in 0.9 % Sodium Chloride 50 ML IV (13:38)
[2020-03-04 15:47] VITALS: BP 110/68; PULSE 72; RESP 18; TEMP 36.8; O2SAT 97
[2020-03-04 16:24] LABS: Glucose, Whole Blood 101 mg/dL (60-115)
[2020-03-04] MEDS: Azithromycin 500 MG in 0.9 % Sodium Chloride 250 ML 125 MG IV (18:23)
[2020-03-04 19:03] LABS: Anion Gap 16 (12-20); Blood Urea Nitrogen 22 mg/dL (9-16); Calcium 8.3 mg/dL (8.4-10.2); Carbon Dioxide 24 mmol/L (22-29); Chloride 106 mmol/L (96-108); Creatinine Clr Calc Pharmacy 88.9; Estimated Glomerular Filt Rate > 60; Glucose Fasting 177 mg/dL (60-99); Potassium 3.7 mmol/l (3.3-5.1); Sodium 142 mmol/L (135-145)
[2020-03-04 20:00] VITALS: BP 96/61; PULSE 97; RESP 20; TEMP 36.3; O2SAT 98
[2020-03-04 21:34] LABS: Glucose, Whole Blood 152 mg/dL (60-115)
[2020-03-04] MEDS: cloZAPine 100 MG TABLET 300 MG PO (22:34)
[2020-03-04] MEDS: HaloperidoL 5 MG TABLET PO (22:35)
[2020-03-04] MEDS: Topiramate 25 MG TABLET 50 MG PO (22:36)
[2020-03-04 23:51] VITALS: BP 141/87; PULSE 80; RESP 20; TEMP 36.6; O2SAT 99
[2020-03-05] MEDS: 0.9 % Sodium Chloride Flush 3 ML SYRINGE IVFLUSH ×2 (01:38→09:06)
[2020-03-05 03:10] VITALS: BP 127/78; PULSE 96; RESP 18; TEMP 36.8; O2SAT 97
[2020-03-05 06:39] LABS: MANUAL DIFF FLAG NO
[2020-03-05 06:58] LABS: Basophils Percent Auto 0.4 % (0-2); Eosinophils Absolute Auto 0.7 X10*3/uL (0.0-0.4); Eosinophils Percent Auto 6.1 % (0-4); Hematocrit 28.7 % (42-52); Hemoglobin 9.1 g/dl (14.0-18.0); Imm Gran Abs Auto 0.11 X10*3/uL (0.00-0.03); Lymphocytes Percent Auto 18.4 % (20-40); Mean Corpuscular HGB Conc 31.7 g/dl (31.0-36.0); Mean Corpuscular Hemoglobin 28.8 pg (27.0-33.0); Mean Corpuscular Volume 90.8 fL (80-98); Mean Platelet Volume 11.5 fL (9.4-12.4); Monocytes Absolute Auto 0.5 X10*3/uL (0.1-1.2); Monocytes Percent Auto 4.5 % (2-11); Neutrophils Absolute Auto 7.6 X10*3/uL (2.0-8.3); Neutrophils Percent Auto 69.6 % (45-73); Platelet Count 254 X10*3/uL (160-400); Red Blood Count 3.16 X10*6/uL (4.60-5.80); Red Cell Distribution Width 14.3 % (11.0-16.0); White Blood Count 10.9 X10*3/uL (4.8-10.8)
[2020-03-05 07:16] LABS: Anion Gap 13 (12-20); Blood Urea Nitrogen 21 mg/dL (9-16); Calcium 8.5 mg/dL (8.4-10.2); Carbon Dioxide 23 mmol/L (22-29); Chloride 111 mmol/L (96-108); Creatinine Clr Calc Pharmacy 97.6; Estimated Glomerular Filt Rate > 60; Glucose Fasting 193 mg/dL (60-99); Potassium 3.9 mmol/l (3.3-5.1); Sodium 143 mmol/L (135-145)
[2020-03-05 07:50] LABS: Glucose, Whole Blood 162 mg/dL (60-115)
[2020-03-05 08:00] VITALS: BP 104/64; PULSE 107; RESP 18; TEMP 36.8; O2SAT 96
[2020-03-05] MEDS: metFORMIN HCl 1,000 MG TABLET 1000 MG PO (08:58)
[2020-03-05] MEDS: Insulin Lispro 100 UNIT/ML 3 ML VIAL SUBCUT (08:58)
[2020-03-05] MEDS: Cholecalciferol (Vitamin D3) 25 MCG TABLET PO (08:58)
[2020-03-05] MEDS: cloZAPine 25 MG TABLET 50 MG PO (08:59)
[2020-03-05] MEDS: Multivitamin TABLET 1 TAB PO (08:59)
[2020-03-05] MEDS: Sertraline HCL 100 MG TABLET 150 MG PO (09:00)
[2020-03-05] MEDS: glipiZIDE 5 MG TABLET 2.5 MG PO (09:01)
[2020-03-05] MEDS: Atorvastatin Calcium 80 MG TABLET PO (09:01)
[2020-03-05] MEDS: Ascorbic Acid 500 MG TABLET PO (09:02)
[2020-03-05] MEDS: HaloperidoL 5 MG TABLET 2.5 MG PO (09:02)
[2020-03-05] MEDS: Topiramate 25 MG TABLET PO (09:03)
[2020-03-05] MEDS: Benztropine Mesylate 1 MG TABLET PO (09:03)
[2020-03-05] MEDS: Fluticasone Propionate Nasal 16 GM SPRAY 1 SPRAY NOSTRIL-B (09:07)
--- NOTE | 2020-03-05 10:15 | PM.DS ---
DS: Providers Provider Date of admission: 03/02/20 19:25 Primary care physician: Trevor Conley MD Consults: 03/02/20 20:04 Consult to Nephrology Routine Consulting Provider: Lalo Johnson Reason for consultation: hypernatremia Has provider been notified: No DS: Diagnosis Discharge Diagnosis (1) UTI (urinary tract infection): Status: Acute (2) Severe sepsis: Status: Acute (3) Acute hypernatremia: Status: Acute (4) Acute metabolic encephalopathy: Status: Acute (5) Pneumonia: Status: Acute (6) Saddle pulmonary embolus: Status: Inactive Problem details: september 2016, on coumadin indefinitely (7) Diabetes insipidus: Status: Acute (8) Diabetes mellitus: Status: Acute (9) Schizo affective schizophrenia: Status: Acute (10) Primary polydipsia: Status: Acute DS: Medications Discharge Medications Home Medications: Home Medications Medication Instructions Recorded Confirmed ascorbic acid (vitamin C) [Vitamin 1 tab PO DAILY 03/02/20 03/02/20 C] benztropine 1 tab PO BID 03/02/20 03/02/20 cholecalciferol (vitamin D3) 1 cap PO DAILY 03/02/20 03/02/20 [Vitamin D3] clozapine 50 mg PO DAILY 03/02/20 03/02/20 clozapine 300 mg PO BEDTIME 03/02/20 03/02/20 fluticasone propionate 1 spray INTRANASAL DAILY 03/02/20 03/02/20 glipizide 0.5 tab PO DAILY 03/02/20 03/02/20 haloperidol 2.5 mg PO DAILY 03/02/20 03/02/20 haloperidol 5 mg PO BEDTIME 03/02/20 03/02/20 metformin 1 tab PO BID 03/02/20 03/02/20 multivitamin 1 tab PO DAILY 03/02/20 03/02/20 polyethylene glycol 3350 [Miralax] 17 g PO DAILY PRN 03/02/20 03/02/20 sertraline 1.5 tab PO DAILY 03/02/20 03/02/20 simvastatin 1 tab PO DAILY 03/02/20 03/02/20 topiramate 25 mg PO DAILY 03/02/20 03/02/20 topiramate 50 mg PO BEDTIME 03/02/20 03/02/20 warfarin 2.5 mg PO SUSA@1600 03/02/20 03/02/20 warfarin 5 mg PO MOFR@1600 03/02/20 03/02/20 Previous Rx's Medication Instructions Recorded cefuroxime axetil 500 mg PO Q12H #14 tab 03/05/20 DS: Summary Hospital Course Hospital Course: patient was admitted for severe sepsis secondary to urinary tract infection complicated by E coli bacteremia. He was treated with IV ceftriaxone will be discharged on 7 more days p.o. Ceftin his sepsis has resolved. He was also noted to have hypernatremia, this likely due to long-standing diabetes insipidus. his free fluid intake was liberalized and his sodium improved. He should be allowed to continue with liberalize free fluid intake, however, patient is at risk for hyponatremia due to primary polydipsia, therefore, his BMP should be monitored closely and exact amount of daily free fluid intake to be determined. Patient will follow-up with Nephrology. Time Spent with Patient Time attestation: Total time spent providing and/or coordinating discharge services: Physical Exam Vital Signs: Vital Signs: Last Vital Signs Temp 98.3 F 03/05/20 08:00 Pulse 107 H 03/05/20 08:00 Resp 18 03/05/20 08:00 BP 104/64 03/05/20 08:00 Pulse Ox 96 03/05/20 08:00 Body Mass Index 22.1 General: Alert, no acute distress Resp: CTA bilateral CVS: S1,S2,RRR GI: soft, non tender, non distended Neuro: motor grossly intact Psych: impaired insight DS: Data Data Completed and Pending Labs on day of discharge: 03/02/20 Breakfast Diabetic Diet 03/02/20 15:00 0.9 % Sodium Chloride [Ns] 1,000 ml IVCONT 999 mls/hr Acetaminophen [Tylenol] 650 mg PO ONCE ONE 03/02/20 15:01 XR chest 1V Stat 03/02/20 15:24 CT head/brain wo con Stat Osmolality Urine Stat Sodium Urine Random Stat 03/02/20 15:27 Basic Metabolic Panel Stat C Reactive Protein Stat Complete Blood Count Auto Diff Stat Lactic Acid Stat Liver Panel Stat 03/02/20 15:44 Azithromycin [Zithromax] 500 mg 0.9 % Sodium Chloride [Ns] 250 ml IV ONCE cefTRIAXone sodium [Rocephin] 1 gm 0.9 % Sodium Chloride [Ns] 50 ml IV ONCE 03/02/20 16:01 SARS-CoV2/FLU/RSV Stat 03/02/20 16:15 0.9 % Sodium Chloride [Ns] 1,000 ml IVCONT 999 mls/hr 03/02/20 16:18 cefTRIAXone sodium [Rocephin] 1 gm .ROUTE .STK-MED ONE 03/02/20 17:00 Dextrose 5 % [D5w] 1,000 ml IVCONT 75 mls/hr 03/02/20 17:33 Azithromycin [Zithromax] 500 mg IV .STK-MED ONE 03/02/20 17:41 Drug Screen Urine Stat 03/02/20 18:00 Urine Culture Routine 03/02/20 18:26 ~Lactic Acid-LAB USE ONLY Stat 03/02/20 19:20 Transfer Order Routine 03/02/20 20:04 Dextrose 5 % [D5w] 1,000 ml IVCONT 100 mls/hr 03/02/20 20:04 ECG 12 lead EKG Stat EKG Documentation DIRECTED Intake and Output QSHIFTE 03/02/20 21:25 Glucose, Whole Blood Routine 03/03/20 CT chest wo con Routine 03/03/20 00:37 Basic Metabolic Panel DAILY@0600 03/03/20 05:26 Complete Blood Count Auto Diff DAILY@0600 Prothrombin Time INR DAILY@0600 03/03/20 07:29 Glucose, Whole Blood Routine 03/03/20 09:00 HaloperidoL [Haldol] 2.5 mg PO DAILY clozapine 50 mg PO DAILY 03/03/20 11:35 Glucose, Whole Blood Routine 03/03/20 15:24 cefTRIAXone sodium [Rocephin] 1 gm .ROUTE .STK-MED ONE 03/03/20 16:45 Glucose, Whole Blood Routine 03/03/20 17:38 Azithromycin [Zithromax] 500 mg IV .STK-MED ONE 03/03/20 20:49 Electrolytes Stat 03/03/20 22:34 Glucose, Whole Blood Routine 03/04/20 05:25 BMP [Basic Metabolic Panel Fasting] Routine Complete Blood Count Auto Diff Routine 03/04/20 07:18 Glucose, Whole Blood Routine 03/04/20 08:29 Prothrombin Time INR Stat 03/04/20 11:05 Glucose, Whole Blood Routine 03/04/20 13:36 cefTRIAXone sodium [Rocephin] 1 gm .ROUTE .[facility] ONE 03/04/20 16:19 Glucose, Whole Blood Routine 03/04/20 18:06 Azithromycin [Zithromax] 500 mg IV .[facility] ONE 03/04/20 18:13 BMP [Basic Metabolic Panel Fasting] Routine 03/04/20 21:27 Glucose, Whole Blood Routine 03/05/20 05:37 BMP [Basic Metabolic Panel Fasting] Routine Complete Blood Count Auto Diff Routine 03/05/20 07:38 Glucose, Whole Blood Routine Laboratory Last Values WBC 10.9 X10*3/uL (4.8-10.8) H 03/05/20 05:37 RBC 3.16 X10*6/uL (4.60-5.80) L 03/05/20 05:37 Hgb 9.1 g/dl (14.0-18.0) L 03/05/20 05:37 Hct 28.7 % (42-52) L 03/05/20 05:37 MCV 90.8 fL (80-98) 03/05/20 05:37 MCH 28.8 pg (27.0-33.0) 03/05/20 05:37 MCHC 31.7 g/dl (31.0-36.0) 03/05/20 05:37 RDW 14.3 % (11.0-16.0) 03/05/20 05:37 Plt Count 254 X10*3/uL (160-400) 03/05/20 05:37 MPV 11.5 fL (9.4-12.4) 03/05/20 05:37 Immature Gran % (Auto) 1.0 % (0.0-0.4) H 03/05/20 05:37 Neut % (Auto) 69.6 % (45-73) 03/05/20 05:37 Lymph % (Auto) 18.4 % (20-40) L 03/05/20 05:37 [place] % (Auto) 4.5 % (2-11) 03/05/20 05:37 Eos % (Auto) 6.1 % (0-4) H 03/05/20 05:37 Baso % (Auto) 0.4 % (0-2) 03/05/20 05:37 Lymph # (Auto) 2.0 X10*3/uL (1.2-4.9) 03/05/20 05:37 [place] # (Auto) 0.5 X10*3/uL (0.1-1.2) 03/05/20 05:37 Eos # (Auto) 0.7 X10*3/uL (0.0-0.4) H 03/05/20 05:37 Baso # (Auto) 0.0 X10*3/uL (0.0-0.2) 03/05/20 05:37 Abs Immat Gran (auto) 0.11 X10*3/uL (0.00-0.03) H 03/05/20 05:37 Absolute Neuts (auto) 7.6 X10*3/uL (2.0-8.3) 03/05/20 05:37 Absolute Nucleated RBC 0.000 X10*3/uL (0.0-0.012) 03/05/20 05:37 Nucleated RBC % (auto) 0.0 /100WBC (0.0-0.2) 03/05/20 05:37 PT 36.7 SEC (10.8-13.0) H D 03/04/20 08:29 INR 3.1 (0.9-1.1) H 03/04/20 08:29 Sodium 143 mmol/L (135-145) 03/05/20 05:37 Potassium 3.9 mmol/l (3.3-5.1) 03/05/20 05:37 Chloride 111 mmol/L (96-108) H 03/05/20 05:37 Carbon Dioxide 23 mmol/L (22-29) 03/05/20 05:37 Anion Gap 13 (12-20) 03/05/20 05:37 BUN 21 mg/dL (9-16) H 03/05/20 05:37 Creatinine 0.92 mg/dL (0.5-1.4) 03/05/20 05:37 Estim Creat Clear Calc 97.6 03/05/20 05:37 Estimated GFR > 60 03/05/20 05:37 POC Glucose 162 mg/dL (60-115) H 03/05/20 07:38 Random Glucose 173 mg/dL (60-115) H 03/03/20 00:37 Fasting Glucose 193 mg/dL (60-99) H 03/05/20 05:37 Lactic Acid 2.7 mmol/L (0.5-2.0) H* 03/02/20 15:27 Lactic Acid Fup @ 2Hr 0.9 mmol/L (0.5-2.0) 03/02/20 18:26 Calcium 8.5 mg/dL (8.4-10.2) 03/05/20 05:37 Total Bilirubin 0.3 mg/dL (0.0-1.0) 03/02/20 15:27 Direct Bilirubin < 0.2 mg/dL (0.0-0.5) 03/02/20 15:27 AST 16 U/L (5-37) 03/02/20 15:27 ALT 27 U/L (0-40) 03/02/20 15:27 Alkaline Phosphatase 107 U/L (39-117) 03/02/20 15:27 C-Reactive Protein 28.94 mg/dL (< or = 0.50) H 03/02/20 15:27 Total Protein 6.8 g/dL (6.5-8.0) 03/02/20 15:27 Albumin 3.5 g/dL (3.5-5.0) 03/02/20 15:27 Urine Color YELLOW 03/02/20 17:41 Urine Appearance CLEAR 03/02/20 17:41 Urine pH 5.5 (5.0-8.0) 03/02/20 17:41 Ur Specific [place] 1.015 (1.005-1.025) 03/02/20 17:41 Urine Protein 1+ MG/DL (NEG-TRACE) H 03/02/20 17:41 Urine Glucose (UA) NEG MG/DL (NEG) 03/02/20 17:41 Urine Ketones NEG MG/DL (NEG) 03/02/20 17:41 Urine Blood 1+ (NEG) H 03/02/20 17:41 Urine Nitrite POS (NEG) H 03/02/20 17:41 Ur Leukocyte Esterase 1+ (NEG) H 03/02/20 17:41 Urine RBC 1-4 /HPF (0) 03/02/20 17:41 Urine WBC 15-29 /HPF (0-4) H 03/02/20 17:41 Ur Squamous Epith Cells NONE /LPF 03/02/20 17:41 Urine Bacteria 3+ /LPF 03/02/20 17:41 Urine Osmolality 327 mosm/kg (373-1093) L 03/02/20 15:24 Ur Random Sodium 42.0 mmol/L 03/02/20 15:24 Urine Opiates Screen Not Detected (Not Detect) 03/02/20 17:41 Ur Barbiturates Screen Not Detected (Not Detect) 03/02/20 17:41 Ur Phencyclidine Scrn Not Detected (Not Detect) 03/02/20 17:41 Ur Amphetamines Screen Not Detected (Not Detect) 03/02/20 17:41 U Benzodiazepines Scrn Not Detected (Not Detect) 03/02/20 17:41 Urine Cocaine Screen Not Detected (Not Detect) 03/02/20 17:41 U Marijuana (THC) Screen Not Detected (Not Detect) 03/02/20 17:41 Coronavirus (PCR) NEGATIVE (Negative) 03/02/20 16:01 Influenza Type A (PCR) NEGATIVE (Negative) 03/02/20 16:01 Influenza Type B (PCR) NEGATIVE (Negative) 03/02/20 16:01 RSV RNA Qual (PCR) NEGATIVE (Negative) 03/02/20 16:01 Preliminary micro results at discharge 03/02/20 15:27 Blood Culture - Preliminary Blood - Venous Escherichia coli 03/02/20 16:01 Blood Culture - Preliminary Blood - Venous No growth after 48 hours. Discharge Plan Discharge Patient Disposition: Xfer Other Referrals: Trevor Conley MD [Primary Care Provider] - Lalo Johnson MD [Physician] - Discharge Medications: New cefuroxime axetil 500 mg tablet 500 mg PO Q12H Qty: 14 RF: 0 Continued multivitamin Tablet 1 tab PO DAILY RF: 0 haloperidol 5 mg Tablet 2.5 mg PO DAILY RF: 0 haloperidol 5 mg Tablet 5 mg PO BEDTIME RF: 0 clozapine 100 mg tablet 300 mg PO BEDTIME RF: 0 sertraline 100 mg tablet 1.5 tab PO DAILY RF: 0 warfarin 2.5 mg Tablet 2.5 mg PO SUSA@1600 RF: 0 simvastatin 80 mg tablet 1 tab PO DAILY RF: 0 ascorbic acid (vitamin C) [Vitamin C] 500 mg tablet 1 tab PO DAILY RF: 0 metformin 1,000 mg tablet 1 tab PO BID RF: 0 warfarin 5 mg Tablet 5 mg PO MOFR@1600 RF: 0 benztropine 1 mg tablet 1 tab PO BID RF: 0 polyethylene glycol 3350 [Miralax] 17 gram/dose Powder 17 g PO DAILY PRN (Reason: Constipation) RF: 0 fluticasone propionate 50 mcg/actuation spray,suspension 1 spray intranasal DAILY RF: 0 glipizide 5 mg tablet 0.5 tab PO DAILY RF: 0 cholecalciferol (vitamin D3) [Vitamin D3] 25 mcg (1,000 unit) capsule 1 cap PO DAILY RF: 0 topiramate 50 mg Tablet 25 mg PO DAILY RF: 0 topiramate 50 mg Tablet 50 mg PO BEDTIME RF: 0 clozapine 50 mg Tablet 50 mg PO DAILY RF: 0 Discharge Orders: Discharge Order (Routine); Ordered 03/05/20 Ordered By: Liang Connelly Activity on Discharge: As tolerated Other Ambulatory Orders: Basic Metabolic Panel Fasting (Routine) Timeframe: 1 Week Facility: [facility] - Location: Laboratory Ordered By: Liang Rivera Restrictions/Additional Instructions: can liberalize free fluid intake for now, monitor labs closely though as patient at risk for both hypernatremia and hyponatremia Visit Report Forms: Patient Portal Discharge page Care Plan Goals: manage sodium Health Concerns: hypernatremia, uti Plan of Treatment: one more week of ceftin, liberalize free fluid and check labs in a few days, follow up nephrology
--- NOTE | 2020-03-05 10:17 | MHC.CM.PN ---
Patient will be discharged today back Home , [facility] will provide transport [phone]. please send with discharge summary.
[2020-03-05 10:42] LABS: INTERNATIONAL NORM RATIO 2.2 (0.9-1.1); Prothrombin Time 26.9 SEC (10.8-13.0)
[2020-03-05 11:23] LABS: Glucose, Whole Blood 211 mg/dL (60-115)
== END 2020-03-05 12:20 | disposition other institution (70) | DRG 871 ==
LOC: HO.ED 17:45 → HO.IMC 19:50
PROVIDERS: Internal Medicine Nephrology; Nurse Practitioner Acute Care; Physician Assistant; Admitting Provider Internal Medicine; Emergency Provider Emergency Medicine; PCP Internal Medicine; Visit Provider Internal Medicine
DX: A41.51 Sepsis due to Escherichia coli [E. coli] (principal); G93.41 Metabolic encephalopathy; N39.0 Urinary tract infection, site not specified; E87.0 Hyperosmolality and hypernatremia; N17.9 Acute kidney failure, unspecified; R65.20 Severe sepsis without septic shock; F43.10 Post-traumatic stress disorder, unspecified; E11.9 Type 2 diabetes mellitus without complications; F25.9 Schizoaffective disorder, unspecified; E78.5 Hyperlipidemia, unspecified; Z86.711 Personal history of pulmonary embolism; N18.30 Chronic kidney disease, stage 3 unspecified; Z20.828 Contact with and (suspected) exposure to other viral communicable diseases; Z88.0 Allergy status to penicillin; Z79.01 Long term (current) use of anticoagulants; Z79.51 Long term (current) use of inhaled steroids; Z79.899 Other long term (current) drug therapy
CPT/HCPCS: 0241U; 36415; 70450; 71045; 71250; 80048; 80051; 80076; 80307; 81001; 82947; 83605; 83935; 84300; 85025; 85610; 86140; 87040; 87077; 87086; 87186; 93005; 96361; 96365; 96366; 96367; 96375; 99285; J0456; J0696

== ENCOUNTER 2020-03-08 09:17 | Outpatient (REF) | payer MEDICARE, MEDICAID, SELFPAY ==
[2020-03-08 10:51] LABS: Anion Gap 17 (12-20); Blood Urea Nitrogen 17 mg/dL (9-16); Calcium 9.1 mg/dL (8.4-10.2); Carbon Dioxide 21 mmol/L (22-29); Chloride 113 mmol/L (96-108); Estimated Glomerular Filt Rate > 60; Glucose Fasting 193 mg/dL (60-99); Potassium 4.1 mmol/l (3.3-5.1); Sodium 147 mmol/L (135-145)
== END 2020-03-08 09:18 | disposition home or self-care (01) ==
LOC: HO.10HDL 09:17
PROVIDERS: Absent Provider Internal Medicine; PCP Internal Medicine; Visit Provider Internal Medicine
DX: E23.2 Diabetes insipidus (principal)
CPT/HCPCS: 80048

== ENCOUNTER 2020-03-22 10:14 | Outpatient (REF) | payer MEDICARE, MEDICAID, SELFPAY ==
[2020-03-22 13:57] LABS: INTERNATIONAL NORM RATIO 3.2 (0.9-1.1); Prothrombin Time 38.6 SEC (10.8-13.0)
== END 2020-03-22 10:15 | disposition home or self-care (01) ==
LOC: HO.10HDL 10:14
PROVIDERS: Visit Provider Internal Medicine
DX: Z86.718 Personal history of other venous thrombosis and embolism (principal)
CPT/HCPCS: 36415; 85610

== ENCOUNTER 2020-03-30 12:26 | Outpatient (REF) | payer MEDICARE, MEDICAID, SELFPAY ==
[2020-03-30 14:01] LABS: INTERNATIONAL NORM RATIO 1.6 (0.9-1.1); Prothrombin Time 19.1 SEC (10.8-13.0)
[2020-03-30 14:28] LABS: Anion Gap 15 (12-20); Blood Urea Nitrogen 17 mg/dL (9-16); Calcium 9.5 mg/dL (8.4-10.2); Carbon Dioxide 26 mmol/L (22-29); Chloride 111 mmol/L (96-108); Estimated Glomerular Filt Rate > 60; Glucose Random 150 mg/dL (60-115); Potassium 4.2 mmol/l (3.3-5.1); Sodium 148 mmol/L (135-145)
== END 2020-03-30 12:27 | disposition home or self-care (01) ==
LOC: HO.10HDL 12:26
PROVIDERS: PCP Internal Medicine; Visit Provider Internal Medicine
DX: E11.9 Type 2 diabetes mellitus without complications (principal); Z86.711 Personal history of pulmonary embolism; E87.1 Hypo-osmolality and hyponatremia
CPT/HCPCS: 36415; 80048; 85610

== ENCOUNTER 2020-04-07 14:16 | Outpatient (REF) | payer MEDICARE, MEDICAID, SELFPAY ==
[2020-04-07 15:43] LABS: Basophils Percent Auto 0.4 % (0-2); Eosinophils Absolute Auto 0.5 X10*3/uL (0.0-0.4); Eosinophils Percent Auto 4.9 % (0-4); Hematocrit 31.6 % (42-52); Hemoglobin 9.6 g/dl (14.0-18.0); Imm Gran Abs Auto 0.03 X10*3/uL (0.00-0.03); Imm Gran Pct Auto 0.3 % (0.0-0.4); Lymphocytes Absolute Auto 2.2 X10*3/uL (1.2-4.9); Lymphocytes Percent Auto 21.4 % (20-40); MANUAL DIFF FLAG NO; Mean Corpuscular HGB Conc 30.4 g/dl (31.0-36.0); Mean Corpuscular Hemoglobin 27.8 pg (27.0-33.0); Mean Corpuscular Volume 91.6 fL (80-98); Mean Platelet Volume 10.8 fL (9.4-12.4); Monocytes Absolute Auto 0.7 X10*3/uL (0.1-1.2); Monocytes Percent Auto 6.3 % (2-11); Neutrophils Absolute Auto 6.9 X10*3/uL (2.0-8.3); Neutrophils Percent Auto 66.7 % (45-73); Platelet Count 331 X10*3/uL (160-400); Red Blood Count 3.45 X10*6/uL (4.60-5.80); Red Cell Distribution Width 15.2 % (11.0-16.0); White Blood Count 10.3 X10*3/uL (4.8-10.8)
[2020-04-07 16:07] LABS: Uric Acid 9.5 mg/dL (3.4-7.0)
[2020-04-07 16:27] LABS: TSH reflex Free T4 1.25 mIU/mL (0.32-4.0)
[2020-04-08 13:42] LABS: CRP High Sensitivity >10.0 mg/L
== END 2020-04-07 14:17 | disposition home or self-care (01) ==
LOC: HO.LAB 14:16
PROVIDERS: PCP Internal Medicine; Visit Provider Internal Medicine Cardiovascular Disease
DX: R00.0 Tachycardia, unspecified (principal); M25.562 Pain in left knee
CPT/HCPCS: 36415; 84443; 84550; 85025; 86141; 93005; Q3014

== ENCOUNTER 2020-04-12 09:58 | Outpatient (REF) | payer MEDICARE, MEDICAID, SELFPAY ==
[2020-04-12 13:53] LABS: INTERNATIONAL NORM RATIO 2.5 (0.9-1.1); Prothrombin Time 30.2 SEC (10.8-13.0)
== END 2020-04-12 09:59 | disposition home or self-care (01) ==
LOC: HO.10HDLR 09:58
PROVIDERS: PCP Internal Medicine; Visit Provider Internal Medicine
DX: Z86.718 Personal history of other venous thrombosis and embolism (principal)
CPT/HCPCS: 36415; 85610

== ENCOUNTER 2020-04-22 11:03 | Outpatient (REF) | payer MEDICARE, MEDICAID, SELFPAY ==
[2020-04-22 13:09] LABS: MANUAL DIFF FLAG NO
[2020-04-22 13:11] LABS: Basophils Absolute Auto 0.1 X10*3/uL (0.0-0.2); Basophils Percent Auto 0.7 % (0-2); Eosinophils Absolute Auto 0.4 X10*3/uL (0.0-0.4); Eosinophils Percent Auto 4.8 % (0-4); Hematocrit 30.4 % (42-52); Imm Gran Abs Auto 0.13 X10*3/uL (0.00-0.03); Imm Gran Pct Auto 1.6 % (0.0-0.4); Lymphocytes Absolute Auto 2.8 X10*3/uL (1.2-4.9); Lymphocytes Percent Auto 34.8 % (20-40); Mean Corpuscular HGB Conc 29.6 g/dl (31.0-36.0); Mean Corpuscular Hemoglobin 27.2 pg (27.0-33.0); Mean Corpuscular Volume 91.8 fL (80-98); Mean Platelet Volume 11.7 fL (9.4-12.4); Monocytes Absolute Auto 0.4 X10*3/uL (0.1-1.2); Monocytes Percent Auto 4.8 % (2-11); Neutrophils Absolute Auto 4.3 X10*3/uL (2.0-8.3); Neutrophils Percent Auto 53.3 % (45-73); Platelet Count 287 X10*3/uL (160-400); Red Blood Count 3.31 X10*6/uL (4.60-5.80); Red Cell Distribution Width 15.8 % (11.0-16.0); White Blood Count 8.1 X10*3/uL (4.8-10.8)
[2020-04-22 13:17] LABS: INTERNATIONAL NORM RATIO 4.1 (0.9-1.1); Prothrombin Time 49.5 SEC (10.8-13.0)
== END 2020-04-22 11:04 | disposition home or self-care (01) ==
LOC: HO.10HDL 11:03
PROVIDERS: Absent Provider Psychiatry & Neurology Child & Adolescent Psychiatry; PCP Internal Medicine; Visit Provider Internal Medicine
DX: Z86.718 Personal history of other venous thrombosis and embolism (principal); Z51.81 Encounter for therapeutic drug level monitoring; Z79.899 Other long term (current) drug therapy
CPT/HCPCS: 36415; 85025; 85610

== ENCOUNTER → 2020-04-28 12:37 | Outpatient (REF) | payer MEDICARE, MEDICAID, SELFPAY ==
--- NOTE | 2020-04-28 12:45 | ECG_ITS ---
Hook-up date: 2020-04-28 13:52:00 Duration: 23:37:00 Test Indications: UNSPEC. TACHYCARDIA Medications: 511591 QRS complexes 9 Ventricular ectopics which represent <1 % of total QRS comp. 13 Supraventricular ectopics which represent <1 % of total QRS comp. * Paced QRS complexs which represent % of total QRS comp. VENTRICULAR ECTOPY 9 Isolated 0 Bigeminal Cycles 0 Couplets 0 Runs 0 Beats in Runs * Beats LONGEST at * BPM at :: -- * Beats FASTEST at * BPM at :: -- SUPRAVENTRICULAR ECTOPY 13 Isolated 0 Couplets 0 Runs 0 Beats in Runs * Beats LONGEST at * BPM at :: -- * Beats FASTEST at * BPM at :: -- HEART RATES 74 MIN at 06:13:25 2020-04-29 101 AVG 141 MAX at 14:13:48 2020-04-28 LONGEST RR 0.8160 secs at 06:13:24 2020-04-29 S-T LEVELS Channel 1 - 128 mm at 13:52:00 2020-04-28 - 128 mm at 13:52:00 2020-04-28 Channel 2 - 128 mm at 13:52:00 2020-04-28 - 128 mm at 13:52:00 2020-04-28 Channel 3 - 128 mm at 03:31:11 -- - 128 mm at 03:31:11 Basic rhythm Normal sinus rhythm No long pause or profound bradycardia Frequent Sinus tachycardia , 65% of time HR > 100 bpm Rare Premature atrial complexes Patient did not report any symptoms in the diary Referred By: Farrukh Mello Overread By: JM ADKINS MD
--- NOTE | 2020-04-28 12:45 | CA_ITS ---
Transthoracic Echocardiogram Patient (Last, First, Middle): Gautam Simmons A Gender: Male Date of : 1975 Age: 44 Procedure Date: 04/28/2020 Procedure Type: Transthoracic Echocardiogram Location: OP Height: 172.72 cm Weight: 63.5 kg BSA: 1.76 m2 Heart Rate: bpm BP: 130 / 70 mmHg Senior Art Director: SOHAIL Nj MD: Farrukh Mello MD Die Setter: Mauro Seymour MD Symptoms: R00.0 - Tachycardia, unspecified Study Quality: Fair ECG Rhythm: Sinus tachycardia Conclusions: - 1. Technically borderline study due to off axis views 2. Normal LV systolic function with grade 1 diastolic dysfunction 3. Normal cardiac valvular Doppler 4. No gross pericardial effusion Findings Left Ventricle Normal left ventricular size, thickness, and systolic function. The visually estimated ejection fraction is between 60-65%. Spectral Doppler is indicative of an impaired relaxation filling pattern. E/E prime ratio is <8, consistent with normal filling pressures. Evidence suggests grade I (mild) diastolic dysfunction. Right Ventricle Normal right ventricular cavity size and systolic function. Atria Both atria are normal in size. Interatrial shunt cannot be excluded. Aortic Valve The aortic valve structure and function is likely normal. There is no aortic valve stenosis. There is no aortic valve regurgitation. Mitral Valve Likely normal mitral valve structure and function. There is trace mitral valve regurgitation. There is no mitral valve stenosis. Pulmonic Valve The pulmonic valve is likely normal. There is trace pulmonic valve regurgitation. Tricuspid Valve The tricuspid valve was not well visualized. Tricuspid regurgitation envelope is inadequate for calculation of right ventricular systolic pressure. Great Vessels All visible segments of the aorta are normal in size. The pulmonary artery was not well visualized. Venous The inferior vena cava is normal in size and collapses greater than 50% with inspiration. Pericardium/Pleural There is no evidence of pericardial effusion. Prior Study Comparison No significant change compared to prior study dated: 05/08/2017. Measurements 2D Linear Measurements IVSd: 1.09 0.6-0.9/0.6-1.0 cm LVIDd: 3.33 3.9-5.3/4.2-5.9 cm LVIDd Index: 1.89 2.4-3.2/2.2-3.1 cm/m2 LVIDs: 2.46 2.0-3.6 cm LVPWd: 0.94 0.7-1.1 cm Ao Root: 3.70 2.1-3.5 cm LA Diam: 2.50 2.7-3.8/3.0-4.0 cm LAIDs Index: 1.42 1.5-2.3 cm/m2 LV Mass: 122.11 67-162/88-224 g LV Mass Index: 69.38 43-95/49-115 g/m2 LVOT Diam: 2.30 3.0+(-)1.3 cm 2D Systolic Function EF 4C: 64.90 >55% EF 2C: 61.50 >55% EF BiP: 64.10 >55% Mitral Valve MV Pk E: 0.51 MV PK A: 0.93 MV Decel Time: 141.00 E/A: 0.50 E'Lateral: 13.10 E'Medial: 6.64 E/E' Med: 7.70 E/E' Lat: 3.90 PHT: 41.00 MVA PHT: 5.37 Decel [place]: 3.61 Aortic Valve AoV Pk Deniz: 1.08 AoV Mn Deniz: 0.75 AoV VTI: 0.12 AoV Pk Grad: 5.00 Aov Mn Grad: 3.00 BON Cont.VTI: 4.12 LVOT LVOT Pk Deniz: 0.87 LVOT Mn Deniz: 0.58 LVOT VTI: 0.12 LVOT Pk Grad: 3.00 LVOT Mn Grad: 2.00 LVOT Diam: 2.30 LVOT Area: 4.15 Diastolic Function MV Pk E: 0.51 MV Pk A: 0.93 E/A: 0.50 E'Medial: 6.64 E/E' Med: 7.70 E' Laterial: 13.10 E/E' Lat: 3.90 Great Vessels Aorta Ao Root-2D: 3.70 2.0-3.7 cm Ao Asc: 3.10 2.1-3.4 cm Ao Arch: 3.00 Updated in Other Vendor System with Status of Final Mauro Seymour MD electronically signed on 04/28/2020 3:55:43 PM with status of Final
== END ==
LOC: HO.CARD 12:37
PROVIDERS: Visit Provider Internal Medicine Cardiovascular Disease
DX: R00.0 Tachycardia, unspecified (principal)
CPT/HCPCS: 93225; 93226; 93306

== ENCOUNTER 2020-05-07 15:43 | Outpatient (REF) | payer MEDICARE, MEDICAID, SELFPAY ==
--- NOTE | 2020-05-07 | US_ITS ---
EXAMINATION: US VENOUS ULTRASOUND WITH DOPPLER LOWER EXTREMITY, LEFT CLINICAL INFORMATION: Left lower extremity edema COMPARISON: None TECHNIQUE: Ultrasound of the deep veins is performed from the hip to the calf with compression sonography and color and pulse Doppler assessment. Spectral analysis with color-flow imaging is performed. FINDINGS: There is normal venous compression and respiratory variation and augmented flow. The visualized common femoral vein, superficial femoral vein, profunda femoral vein, popliteal vein, and the trifurcation region shows no evidence of deep venous thrombosis. A 2.1 x 0.8 x 1.4 cm Lara's cyst is seen in the popliteal fossa. Inferomedial to the knee, a heterogeneous collection is seen measuring 4.2 x 1.8 x 2.6 cm which could be a joint effusion. A definite knee joint effusion can't be appreciated superiorly. If the patient's symptoms persist, followup ultrasound in 5 days 7 days might be of value to exclude proximal propagation from a non-visualized calf vein. US/US venous duplex LE LT IMPRESSION: No DVT demonstrated in the left lower extremity. Lara's cyst is present as is a complex knee joint effusion.
[2020-05-07 17:04] LABS: MANUAL DIFF FLAG NO
[2020-05-07 17:05] LABS: Basophils Percent Auto 0.5 % (0-2); Eosinophils Absolute Auto 0.4 X10*3/uL (0.0-0.4); Eosinophils Percent Auto 4.4 % (0-4); Hematocrit 29.5 % (42-52); Hemoglobin 8.9 g/dl (14.0-18.0); Imm Gran Abs Auto 0.02 X10*3/uL (0.00-0.03); Imm Gran Pct Auto 0.2 % (0.0-0.4); Lymphocytes Absolute Auto 1.9 X10*3/uL (1.2-4.9); Lymphocytes Percent Auto 22.5 % (20-40); Mean Corpuscular HGB Conc 30.2 g/dl (31.0-36.0); Mean Corpuscular Hemoglobin 26.9 pg (27.0-33.0); Mean Corpuscular Volume 89.1 fL (80-98); Mean Platelet Volume 11.3 fL (9.4-12.4); Monocytes Absolute Auto 0.4 X10*3/uL (0.1-1.2); Neutrophils Absolute Auto 5.6 X10*3/uL (2.0-8.3); Neutrophils Percent Auto 67.4 % (45-73); Platelet Count 307 X10*3/uL (160-400); Red Blood Count 3.31 X10*6/uL (4.60-5.80); Red Cell Distribution Width 16.6 % (11.0-16.0); White Blood Count 8.2 X10*3/uL (4.8-10.8)
[2020-05-07 17:11] LABS: INTERNATIONAL NORM RATIO 3.9 (0.9-1.1); Prothrombin Time 47.2 SEC (10.8-13.0)
[2020-05-07 17:31] LABS: Alanine Aminotransferase 14 U/L (0-40); Albumin Level 3.7 g/dL (3.5-5.0); Alkaline Phosphatase 90 U/L (39-117); Anion Gap 14 (12-20); Aspartate Amino Transferase 9 U/L (5-37); Bilirubin Total 0.2 mg/dL (0.0-1.0); Blood Urea Nitrogen 16 mg/dL (9-16); Calcium 9.1 mg/dL (8.4-10.2); Carbon Dioxide 29 mmol/L (22-29); Chloride 108 mmol/L (96-108); Estimated Glomerular Filt Rate > 60; Glucose Random 166 mg/dL (60-115); Potassium 4.1 mmol/l (3.3-5.1); Sodium 147 mmol/L (135-145); Total Protein 7.2 g/dL (6.5-8.0)
[2020-05-08 06:51] LABS: Estimated Average Glucose 143 mg/dL; Hemoglobin A1c % 6.6 %
== END 2020-05-07 15:44 | disposition home or self-care (01) ==
LOC: HO.US 15:43
PROVIDERS: PCP Internal Medicine; Visit Provider Internal Medicine
DX: R00.0 Tachycardia, unspecified (principal); E11.9 Type 2 diabetes mellitus without complications; R60.0 Localized edema
CPT/HCPCS: 36415; 80053; 83036; 84550; 85025; 85610; 86140; 93971

== ENCOUNTER 2020-05-21 11:50 | Outpatient (REF) | payer MEDICARE, MEDICAID, SELFPAY ==
[2020-05-21 13:50] LABS: Basophils Absolute Auto 0.1 X10*3/uL (0.0-0.2); Basophils Percent Auto 0.7 % (0-2); Eosinophils Absolute Auto 0.3 X10*3/uL (0.0-0.4); Eosinophils Percent Auto 2.9 % (0-4); Hematocrit 34.9 % (42-52); Hemoglobin 10.4 g/dl (14.0-18.0); Imm Gran Abs Auto 0.04 X10*3/uL (0.00-0.03); Imm Gran Pct Auto 0.4 % (0.0-0.4); Lymphocytes Absolute Auto 5.3 X10*3/uL (1.2-4.9); Lymphocytes Percent Auto 53.4 % (20-40); MANUAL DIFF FLAG SCAN; Mean Corpuscular HGB Conc 29.8 g/dl (31.0-36.0); Mean Corpuscular Hemoglobin 26.3 pg (27.0-33.0); Mean Corpuscular Volume 88.4 fL (80-98); Mean Platelet Volume 11.4 fL (9.4-12.4); Monocytes Absolute Auto 0.5 X10*3/uL (0.1-1.2); Monocytes Percent Auto 4.6 % (2-11); Neutrophils Absolute Auto 3.8 X10*3/uL (2.0-8.3); Platelet Count 360 X10*3/uL (160-400); Red Blood Count 3.95 X10*6/uL (4.60-5.80); Red Cell Distribution Width 17.4 % (11.0-16.0); SCAN SMEAR FLAG 1; White Blood Count 9.9 X10*3/uL (4.8-10.8)
[2020-05-21 13:55] LABS: INTERNATIONAL NORM RATIO 1.8 (0.9-1.1); Prothrombin Time 21.2 SEC (10.8-13.0)
[2020-05-21 14:18] LABS: SLIDE REVIEW VERIFIED
== END 2020-05-21 11:51 | disposition home or self-care (01) ==
LOC: HO.10HDL 11:50
PROVIDERS: Absent Provider Psychiatry & Neurology Child & Adolescent Psychiatry; Visit Provider Internal Medicine
DX: Z86.718 Personal history of other venous thrombosis and embolism (principal); Z79.899 Other long term (current) drug therapy
CPT/HCPCS: 36415; 85025; 85610

== ENCOUNTER → 2020-06-09 14:14 | Outpatient (BNVA) | payer MEDICARE, MEDICAID, SELFPAY | PROVIDERS: PCP Internal Medicine; Visit Provider Internal Medicine Cardiovascular Disease | DX: R00.0 Tachycardia, unspecified (principal) | CPT/HCPCS: 99212 ==

== ENCOUNTER 2020-06-23 10:13 | Outpatient (REF) | payer MEDICARE, MEDICAID, SELFPAY ==
[2020-06-23 13:50] LABS: MANUAL DIFF FLAG NO
[2020-06-23 14:00] LABS: INTERNATIONAL NORM RATIO 2.2 (0.9-1.1)
[2020-06-23 14:02] LABS: Basophils Absolute Auto 0.1 X10*3/uL (0.0-0.2); Eosinophils Absolute Auto 0.7 X10*3/uL (0.0-0.4); Eosinophils Percent Auto 9.5 % (0-4); Hemoglobin 10.5 g/dl (14.0-18.0); Imm Gran Abs Auto 0.02 X10*3/uL (0.00-0.03); Imm Gran Pct Auto 0.3 % (0.0-0.4); Lymphocytes Absolute Auto 1.9 X10*3/uL (1.2-4.9); Lymphocytes Percent Auto 27.5 % (20-40); Mean Corpuscular Hemoglobin 26.3 pg (27.0-33.0); Mean Corpuscular Volume 87.5 fL (80-98); Mean Platelet Volume 11.4 fL (9.4-12.4); Monocytes Absolute Auto 0.3 X10*3/uL (0.1-1.2); Monocytes Percent Auto 4.2 % (2-11); Neutrophils Percent Auto 57.5 % (45-73); Platelet Count 228 X10*3/uL (160-400); Red Cell Distribution Width 18.6 % (11.0-16.0); White Blood Count 6.9 X10*3/uL (4.8-10.8)
== END 2020-06-23 10:14 | disposition home or self-care (01) ==
LOC: HO.10HDLR 10:13
PROVIDERS: Absent Provider Psychiatry & Neurology Child & Adolescent Psychiatry; Visit Provider Internal Medicine
DX: R53.1 Weakness (principal); E11.9 Type 2 diabetes mellitus without complications; Z86.711 Personal history of pulmonary embolism; Z79.899 Other long term (current) drug therapy
CPT/HCPCS: 36415; 85025; 85610

== ENCOUNTER 2020-07-08 14:18 | Outpatient (REF) | payer MEDICARE, MEDICAID, SELFPAY ==
[2020-07-08 15:12] LABS: Estimated Average Glucose 114 mg/dL; Hemoglobin A1c % 5.6 %
[2020-07-08 15:22] LABS: Alanine Aminotransferase 16 U/L (0-40); Albumin Level 4.2 g/dL (3.5-5.0); Alkaline Phosphatase 100 U/L (39-117); Anion Gap 12 (12-20); Aspartate Amino Transferase 13 U/L (5-37); Bilirubin Total 0.3 mg/dL (0.0-1.0); Blood Urea Nitrogen 11 mg/dL (9-16); Calcium 9.5 mg/dL (8.4-10.2); Carbon Dioxide 32 mmol/L (22-29); Chloride 101 mmol/L (96-108); Estimated Glomerular Filt Rate > 60; Glucose Random 92 mg/dL (60-115); Potassium 4.4 mmol/L (3.3-5.1); Sodium 141 mmol/L (135-145); Total Protein 7.5 g/dL (6.5-8.0); Uric Acid 5.6 mg/dL (3.4-7.0)
== END 2020-07-08 14:19 | disposition home or self-care (01) ==
LOC: HO.LAB 14:18
PROVIDERS: PCP Internal Medicine; Visit Provider Internal Medicine
DX: E11.9 Type 2 diabetes mellitus without complications (principal); M10.9 Gout, unspecified
CPT/HCPCS: 36415; 80053; 83036; 84550

== ENCOUNTER 2020-07-22 10:42 | Outpatient (REF) | payer MEDICARE, MEDICAID, SELFPAY ==
[2020-07-22 13:38] LABS: MANUAL DIFF FLAG NO
[2020-07-22 13:59] LABS: INTERNATIONAL NORM RATIO 2.2 (0.9-1.1); Prothrombin Time 26.1 SEC (10.8-13.0)
[2020-07-22 14:01] LABS: Basophils Absolute Auto 0.1 X10*3/uL (0.0-0.2); Basophils Percent Auto 0.8 % (0-2); Eosinophils Absolute Auto 1.4 X10*3/uL (0.0-0.4); Eosinophils Percent Auto 18.8 % (0-4); Hematocrit 36.6 % (42-52); Hemoglobin 11.1 g/dl (14.0-18.0); Imm Gran Abs Auto 0.01 X10*3/uL (0.00-0.03); Imm Gran Pct Auto 0.1 % (0.0-0.4); Lymphocytes Absolute Auto 2.3 X10*3/uL (1.2-4.9); Lymphocytes Percent Auto 31.5 % (20-40); Mean Corpuscular HGB Conc 30.3 g/dl (31.0-36.0); Mean Corpuscular Hemoglobin 26.5 pg (27.0-33.0); Mean Corpuscular Volume 87.4 fL (80-98); Mean Platelet Volume 11.5 fL (9.4-12.4); Monocytes Absolute Auto 0.4 X10*3/uL (0.1-1.2); Monocytes Percent Auto 4.9 % (2-11); Neutrophils Absolute Auto 3.2 X10*3/uL (2.0-8.3); Neutrophils Percent Auto 43.9 % (45-73); Platelet Count 222 X10*3/uL (160-400); Red Blood Count 4.19 X10*6/uL (4.60-5.80); Red Cell Distribution Width 19.2 % (11.0-16.0); White Blood Count 7.3 X10*3/uL (4.8-10.8)
== END 2020-07-22 10:43 | disposition home or self-care (01) ==
LOC: HO.10HDLR 10:42
PROVIDERS: Absent Provider Psychiatry & Neurology Child & Adolescent Psychiatry; Visit Provider Internal Medicine
DX: Z86.718 Personal history of other venous thrombosis and embolism (principal); Z79.899 Other long term (current) drug therapy
CPT/HCPCS: 36415; 85025; 85610

== ENCOUNTER 2020-08-17 10:02 | Outpatient (REF) | payer MEDICARE, MEDICAID, SELFPAY ==
[2020-08-17 10:31] LABS: MANUAL DIFF FLAG NO
[2020-08-17 10:44] LABS: Basophils Absolute Auto 0.1 X10*3/uL (0.0-0.2); Basophils Percent Auto 0.9 % (0-2); Eosinophils Percent Auto 13.2 % (0-4); Hematocrit 37.7 % (42-52); Hemoglobin 11.6 g/dl (14.0-18.0); Imm Gran Abs Auto 0.01 X10*3/uL (0.00-0.03); Imm Gran Pct Auto 0.1 % (0.0-0.4); Lymphocytes Absolute Auto 2.4 X10*3/uL (1.2-4.9); Lymphocytes Percent Auto 30.9 % (20-40); Mean Corpuscular HGB Conc 30.8 g/dl (31.0-36.0); Mean Corpuscular Hemoglobin 26.5 pg (27.0-33.0); Mean Corpuscular Volume 86.1 fL (80-98); Mean Platelet Volume 10.9 fL (9.4-12.4); Monocytes Absolute Auto 0.3 X10*3/uL (0.1-1.2); Monocytes Percent Auto 3.8 % (2-11); Neutrophils Absolute Auto 3.9 X10*3/uL (2.0-8.3); Neutrophils Percent Auto 51.1 % (45-73); Platelet Count 216 X10*3/uL (160-400); Red Blood Count 4.38 X10*6/uL (4.60-5.80); Red Cell Distribution Width 18.1 % (11.0-16.0); White Blood Count 7.6 X10*3/uL (4.8-10.8)
[2020-08-17 10:46] LABS: INTERNATIONAL NORM RATIO 2.1 (0.9-1.1); Prothrombin Time 24.6 SEC (10.8-13.0)
== END 2020-08-17 10:03 | disposition home or self-care (01) ==
LOC: HO.10HDLR 10:02
PROVIDERS: Absent Provider Psychiatry & Neurology Child & Adolescent Psychiatry; Visit Provider Internal Medicine
DX: Z86.718 Personal history of other venous thrombosis and embolism (principal); Z79.899 Other long term (current) drug therapy
CPT/HCPCS: 36415; 85025; 85610

== ENCOUNTER 2020-09-21 09:56 | Outpatient (REF) | payer MEDICARE, MEDICAID, SELFPAY ==
[2020-09-21 10:50] LABS: MANUAL DIFF FLAG NO
[2020-09-21 10:58] LABS: Basophils Percent Auto 0.6 % (0-2); Eosinophils Absolute Auto 0.7 X10*3/uL (0.0-0.4); Hematocrit 39.5 % (42-52); Hemoglobin 12.8 g/dl (14.0-18.0); Imm Gran Abs Auto 0.02 X10*3/uL (0.00-0.03); Imm Gran Pct Auto 0.3 % (0.0-0.4); Lymphocytes Absolute Auto 1.8 X10*3/uL (1.2-4.9); Mean Corpuscular HGB Conc 32.4 g/dl (31.0-36.0); Mean Corpuscular Hemoglobin 27.8 pg (27.0-33.0); Mean Corpuscular Volume 85.9 fL (80-98); Mean Platelet Volume 11.1 fL (9.4-12.4); Monocytes Absolute Auto 0.2 X10*3/uL (0.1-1.2); Monocytes Percent Auto 3.5 % (2-11); Neut%MD 55.6 %; Neutrophils Absolute Auto 3.5 X10*3/uL (2.0-8.3); Neutrophils Percent Auto 55.6 % (45-73); Platelet Count 189 X10*3/uL (160-400); Red Cell Distribution Width 16.8 % (11.0-16.0); WBCANC 6.3 X10*3/uL; White Blood Count 6.3 X10*3/uL (4.8-10.8)
[2020-09-21 11:04] LABS: INTERNATIONAL NORM RATIO 2.4 (0.9-1.1); Prothrombin Time 28.9 SEC (10.8-13.0)
== END 2020-09-21 09:57 | disposition home or self-care (01) ==
LOC: HO.10HDL 09:56
PROVIDERS: PCP Internal Medicine; Visit Provider Psychiatry & Neurology Child & Adolescent Psychiatry
DX: Z79.899 Other long term (current) drug therapy (principal)
CPT/HCPCS: 36415; 85025; 85048; 85610

== ENCOUNTER 2020-10-20 10:04 | Outpatient (REF) | payer MEDICARE, MEDICAID, SELFPAY ==
[2020-10-20 10:32] LABS: MANUAL DIFF FLAG NO
[2020-10-20 10:41] LABS: Basophils Percent Auto 0.6 % (0-2); Eosinophils Absolute Auto 0.5 X10*3/uL (0.0-0.4); Eosinophils Percent Auto 6.9 % (0-4); Hemoglobin 12.2 g/dl (14.0-18.0); Imm Gran Abs Auto 0.02 X10*3/uL (0.00-0.03); Imm Gran Pct Auto 0.3 % (0.0-0.4); Lymphocytes Absolute Auto 1.8 X10*3/uL (1.2-4.9); Lymphocytes Percent Auto 24.9 % (20-40); Mean Corpuscular HGB Conc 32.1 g/dl (31.0-36.0); Mean Corpuscular Hemoglobin 27.7 pg (27.0-33.0); Mean Corpuscular Volume 86.2 fL (80-98); Mean Platelet Volume 10.8 fL (9.4-12.4); Monocytes Absolute Auto 0.3 X10*3/uL (0.1-1.2); Monocytes Percent Auto 4.8 % (2-11); Neut%MD 62.5 %; Neutrophils Absolute Auto 4.4 X10*3/uL (2.0-8.3); Neutrophils Percent Auto 62.5 % (45-73); Platelet Count 194 X10*3/uL (160-400); Red Blood Count 4.41 X10*6/uL (4.60-5.80); Red Cell Distribution Width 15.7 % (11.0-16.0); WBCANC 7.1 X10*3/uL; White Blood Count 7.1 X10*3/uL (4.8-10.8)
[2020-10-20 10:43] LABS: Prothrombin Time 23.9 SEC (10.8-13.0)
== END 2020-10-20 10:05 | disposition home or self-care (01) ==
LOC: HO.10HDL 10:04
PROVIDERS: Psychiatry & Neurology Child & Adolescent Psychiatry; Visit Provider Internal Medicine
DX: Z79.899 Other long term (current) drug therapy (principal); Z86.718 Personal history of other venous thrombosis and embolism
CPT/HCPCS: 36415; 85025; 85048; 85610

== ENCOUNTER 2020-11-17 07:56 | Outpatient (REF) | payer MEDICARE, MEDICAID, SELFPAY ==
[2020-11-17 08:43] LABS: MANUAL DIFF FLAG NO
[2020-11-17 08:50] LABS: Basophils Percent Auto 0.5 % (0-2); Eosinophils Absolute Auto 0.4 X10*3/uL (0.0-0.4); Eosinophils Percent Auto 5.4 % (0-4); Hematocrit 38.1 % (42-52); Hemoglobin 12.4 g/dl (14.0-18.0); Imm Gran Abs Auto 0.02 X10*3/uL (0.00-0.03); Imm Gran Pct Auto 0.2 % (0.0-0.4); Lymphocytes Absolute Auto 1.9 X10*3/uL (1.2-4.9); Lymphocytes Percent Auto 23.4 % (20-40); Mean Corpuscular HGB Conc 32.5 g/dl (31.0-36.0); Mean Corpuscular Hemoglobin 28.8 pg (27.0-33.0); Mean Corpuscular Volume 88.4 fL (80-98); Mean Platelet Volume 10.8 fL (9.4-12.4); Monocytes Absolute Auto 0.4 X10*3/uL (0.1-1.2); Monocytes Percent Auto 4.3 % (2-11); Neutrophils Absolute Auto 5.4 X10*3/uL (2.0-8.3); Neutrophils Percent Auto 66.2 % (45-73); Platelet Count 194 X10*3/uL (160-400); Red Blood Count 4.31 X10*6/uL (4.60-5.80); White Blood Count 8.2 X10*3/uL (4.8-10.8)
[2020-11-17 08:55] LABS: Estimated Average Glucose 114 mg/dL; Hemoglobin A1c % 5.6 %; INTERNATIONAL NORM RATIO 1.6 (0.9-1.1)
[2020-11-17 09:09] LABS: Alanine Aminotransferase 16 U/L (0-40); Albumin Level 4.4 g/dL (3.5-5.0); Alkaline Phosphatase 92 U/L (39-117); Anion Gap 14 (12-20); Aspartate Amino Transferase 16 U/L (5-37); Bilirubin Total 0.2 mg/dL (0.0-1.0); Blood Urea Nitrogen 19 mg/dL (9-16); Calcium 9.6 mg/dL (8.4-10.2); Carbon Dioxide 28 mmol/L (22-29); Chloride 103 mmol/L (96-108); Cholesterol 172 mg/dL; Estimated Glomerular Filt Rate > 60; Glucose Fasting 143 mg/dL (60-99); HDL Cholesterol 44 mg/dL; LDL Cholesterol Calculated 69 mg/dl; Potassium 3.9 mmol/L (3.3-5.1); Sodium 141 mmol/L (135-145); Total Protein 7.5 g/dL (6.5-8.0); Triglycerides 295 mg/dL
[2020-11-17 10:19] LABS: Creatinine Urine 36.59 mg/dL; Microalbum/Creatinine Ratio Ur 13.6 ug/mg cr
== END 2020-11-17 07:57 | disposition home or self-care (01) ==
LOC: HO.LAB 07:56
PROVIDERS: PCP Internal Medicine; Visit Provider Psychiatry & Neurology Child & Adolescent Psychiatry
DX: E11.9 Type 2 diabetes mellitus without complications (principal); E78.00 Pure hypercholesterolemia, unspecified
CPT/HCPCS: 36415; 80053; 80061; 82043; 83036; 85025; 85610

== ENCOUNTER 2020-12-17 08:39 | Outpatient (REF) | payer MEDICARE, MEDICAID, SELFPAY ==
[2020-12-17 09:33] LABS: MANUAL DIFF FLAG NO
[2020-12-17 09:37] LABS: Basophils Absolute Auto 0.1 X10*3/uL (0.0-0.2); Basophils Percent Auto 0.5 % (0-2); Eosinophils Percent Auto 8.8 % (0-4); Hematocrit 37.9 % (42-52); Hemoglobin 12.4 g/dl (14.0-18.0); Imm Gran Abs Auto 0.04 X10*3/uL (0.00-0.03); Imm Gran Pct Auto 0.4 % (0.0-0.4); Lymphocytes Absolute Auto 2.3 X10*3/uL (1.2-4.9); Lymphocytes Percent Auto 21.1 % (20-40); Mean Corpuscular HGB Conc 32.7 g/dl (31.0-36.0); Mean Corpuscular Hemoglobin 29.2 pg (27.0-33.0); Mean Corpuscular Volume 89.4 fL (80-98); Monocytes Absolute Auto 0.4 X10*3/uL (0.1-1.2); Monocytes Percent Auto 3.8 % (2-11); Neutrophils Absolute Auto 7.1 X10*3/uL (2.0-8.3); Neutrophils Percent Auto 65.4 % (45-73); Platelet Count 228 X10*3/uL (160-400); Red Blood Count 4.24 X10*6/uL (4.60-5.80); Red Cell Distribution Width 14.3 % (11.0-16.0); White Blood Count 10.8 X10*3/uL (4.8-10.8)
== END 2020-12-17 08:40 | disposition home or self-care (01) ==
LOC: HO.LABR 08:39
PROVIDERS: PCP Internal Medicine; Visit Provider Psychiatry & Neurology Child & Adolescent Psychiatry
DX: F25.0 Schizoaffective disorder, bipolar type (principal)
CPT/HCPCS: 36415; 85025

== ENCOUNTER 2021-01-20 08:58 | Outpatient (REF) | payer MEDICARE, MEDICAID, SELFPAY ==
[2021-01-20 10:26] LABS: MANUAL DIFF FLAG NO
[2021-01-20 10:30] LABS: Basophils Absolute Auto 0.1 X10*3/uL (0.0-0.2); Basophils Percent Auto 0.6 % (0-2); Eosinophils Absolute Auto 0.7 X10*3/uL (0.0-0.4); Eosinophils Percent Auto 7.9 % (0-4); Hematocrit 38.7 % (42-52); Hemoglobin 12.7 g/dl (14.0-18.0); Imm Gran Abs Auto 0.02 X10*3/uL (0.00-0.03); Imm Gran Pct Auto 0.2 % (0.0-0.4); Lymphocytes Absolute Auto 2.1 X10*3/uL (1.2-4.9); Lymphocytes Percent Auto 25.3 % (20-40); Mean Corpuscular HGB Conc 32.8 g/dl (31.0-36.0); Mean Corpuscular Hemoglobin 29.3 pg (27.0-33.0); Mean Corpuscular Volume 89.4 fL (80-98); Mean Platelet Volume 11.2 fL (9.4-12.4); Monocytes Absolute Auto 0.5 X10*3/uL (0.1-1.2); Monocytes Percent Auto 5.5 % (2-11); Neutrophils Absolute Auto 5.1 X10*3/uL (2.0-8.3); Neutrophils Percent Auto 60.5 % (45-73); Platelet Count 195 X10*3/uL (160-400); Red Blood Count 4.33 X10*6/uL (4.60-5.80); Red Cell Distribution Width 13.4 % (11.0-16.0); White Blood Count 8.5 X10*3/uL (4.8-10.8)
[2021-01-20 10:36] LABS: INTERNATIONAL NORM RATIO 2.7 (0.9-1.1); Prothrombin Time 30.9 SEC (9.9-13.0)
== END 2021-01-20 08:59 | disposition home or self-care (01) ==
LOC: HO.10HDLR 08:58
PROVIDERS: Absent Provider Psychiatry & Neurology Child & Adolescent Psychiatry; Visit Provider Internal Medicine
DX: Z86.718 Personal history of other venous thrombosis and embolism (principal); Z79.899 Other long term (current) drug therapy
CPT/HCPCS: 36415; 85025; 85610

== ENCOUNTER 2021-02-22 09:16 | Outpatient (REF) | payer MEDICARE, MEDICAID, SELFPAY ==
[2021-02-22 10:07] LABS: MANUAL DIFF FLAG NO
[2021-02-22 10:11] LABS: Basophils Absolute Auto 0.1 X10*3/uL (0.0-0.2); Basophils Percent Auto 0.6 % (0-2); Eosinophils Absolute Auto 0.7 X10*3/uL (0.0-0.4); Eosinophils Percent Auto 7.6 % (0-4); Hematocrit 39.4 % (42.0-52.0); Hemoglobin 12.9 g/dl (14.0-18.0); Imm Gran Abs Auto 0.02 X10*3/uL (0.00-0.03); Imm Gran Pct Auto 0.2 % (0.0-0.4); Lymphocytes Absolute Auto 2.1 X10*3/uL (1.2-4.9); Lymphocytes Percent Auto 23.6 % (20-40); Mean Corpuscular HGB Conc 32.7 g/dl (31.0-36.0); Mean Corpuscular Hemoglobin 29.2 pg (27.0-33.0); Mean Corpuscular Volume 89.1 fL (80.0-98.0); Mean Platelet Volume 10.8 fL (9.4-12.4); Monocytes Absolute Auto 0.5 X10*3/uL (0.1-1.2); Monocytes Percent Auto 5.9 % (2-11); Neutrophils Absolute Auto 5.62 x10*3/uL (2.0-8.3); Neutrophils Percent Auto 62.1 % (45-73); Platelet Count 190 X10*3/uL (160-400); Red Blood Count 4.42 X10*6/uL (4.60-5.80); Red Cell Distribution Width 13.2 % (11.0-16.0)
[2021-02-22 10:31] LABS: INTERNATIONAL NORM RATIO 2.6 (0.9-1.1); Prothrombin Time 29.7 SEC (9.9-13.0)
== END 2021-02-22 09:17 | disposition home or self-care (01) ==
LOC: HO.10HDLR 09:16
PROVIDERS: Absent Provider Psychiatry & Neurology Child & Adolescent Psychiatry; Visit Provider Internal Medicine
DX: Z86.718 Personal history of other venous thrombosis and embolism (principal)
CPT/HCPCS: 36415; 85025; 85610

== ENCOUNTER 2021-03-21 08:26 | Outpatient (REF) | payer MEDICARE, MEDICAID, SELFPAY ==
[2021-03-21 10:14] LABS: MANUAL DIFF FLAG NO
[2021-03-21 10:21] LABS: Basophils Absolute Auto 0.1 X10*3/uL (0.0-0.2); Basophils Percent Auto 0.6 % (0-2); Eosinophils Absolute Auto 0.6 X10*3/uL (0.0-0.4); Eosinophils Percent Auto 6.5 % (0-4); Hematocrit 40.2 % (42.0-52.0); Hemoglobin 13.2 g/dl (14.0-18.0); Imm Gran Abs Auto 0.02 X10*3/uL (0.00-0.03); Imm Gran Pct Auto 0.2 % (0.0-0.4); Lymphocytes Percent Auto 23.2 % (20-40); Mean Corpuscular HGB Conc 32.8 g/dl (31.0-36.0); Mean Corpuscular Hemoglobin 29.3 pg (27.0-33.0); Mean Corpuscular Volume 89.3 fL (80.0-98.0); Mean Platelet Volume 11.5 fL (9.4-12.4); Monocytes Absolute Auto 0.4 X10*3/uL (0.1-1.2); Monocytes Percent Auto 4.2 % (2-11); Neutrophils Absolute Auto 5.6 x10*3/uL (2.0-8.3); Neutrophils Percent Auto 65.3 % (45-73); Platelet Count 192 X10*3/uL (160-400); Red Cell Distribution Width 13.4 % (11.0-16.0); White Blood Count 8.6 X10*3/uL (4.8-10.8)
[2021-03-21 10:41] LABS: INTERNATIONAL NORM RATIO 3.3 (0.9-1.1); Prothrombin Time 38.5 SEC (9.9-13.0)
== END 2021-03-21 08:27 | disposition home or self-care (01) ==
LOC: HO.10HDL 08:26
PROVIDERS: Absent Provider Psychiatry & Neurology Child & Adolescent Psychiatry; Visit Provider Internal Medicine
DX: Z86.718 Personal history of other venous thrombosis and embolism (principal)
CPT/HCPCS: 36415; 85025; 85610

== ENCOUNTER 2021-04-20 09:21 | Outpatient (REF) | payer MEDICARE, MEDICAID, SELFPAY ==
[2021-04-20 09:58] LABS: MANUAL DIFF FLAG NO
[2021-04-20 10:00] LABS: Basophils Absolute Auto 0.1 X10*3/uL (0.0-0.2); Basophils Percent Auto 0.7 % (0-2); Eosinophils Absolute Auto 0.7 X10*3/uL (0.0-0.4); Eosinophils Percent Auto 9.8 % (0-4); Hematocrit 39.3 % (42.0-52.0); Imm Gran Abs Auto 0.02 X10*3/uL (0.00-0.03); Imm Gran Pct Auto 0.3 % (0.0-0.4); Lymphocytes Absolute Auto 2.2 X10*3/uL (1.2-4.9); Lymphocytes Percent Auto 29.8 % (20-40); Mean Corpuscular HGB Conc 33.1 g/dl (31.0-36.0); Mean Corpuscular Hemoglobin 29.4 pg (27.0-33.0); Mean Corpuscular Volume 88.9 fL (80.0-98.0); Mean Platelet Volume 10.9 fL (9.4-12.4); Monocytes Absolute Auto 0.4 X10*3/uL (0.1-1.2); Monocytes Percent Auto 4.9 % (2-11); Neutrophils Percent Auto 54.5 % (45-73); Platelet Count 172 X10*3/uL (160-400); Red Blood Count 4.42 X10*6/uL (4.60-5.80); Red Cell Distribution Width 13.8 % (11.0-16.0); White Blood Count 7.4 X10*3/uL (4.8-10.8)
== END 2021-04-20 09:22 | disposition home or self-care (01) ==
LOC: HO.10HDL 09:21
PROVIDERS: Visit Provider Internal Medicine
DX: Z79.899 Other long term (current) drug therapy (principal)
CPT/HCPCS: 36415; 85025

== ENCOUNTER 2021-05-04 14:21 | Outpatient (REF) | payer MEDICARE, MEDICAID, SELFPAY ==
[2021-05-04 15:08] LABS: Estimated Average Glucose 114 mg/dL; Hemoglobin A1C 128.2537 umol/L; Hemoglobin A1c % 5.6 %
[2021-05-04 15:19] LABS: Alanine Aminotransferase 24 U/L (0-40); Albumin Level 4.4 g/dL (3.5-5.0); Alkaline Phosphatase 93 U/L (39-117); Anion Gap 14 (12-20); Aspartate Amino Transferase 16 U/L (5-37); Bilirubin Total 0.2 mg/dL (0.0-1.0); Blood Urea Nitrogen 14 mg/dL (9-16); Carbon Dioxide 29 mmol/L (22-29); Chloride 103 mmol/L (96-108); Estimated Glomerular Filt Rate > 60; Glucose Random 117 mg/dL (60-115); Potassium 4.2 mmol/L (3.3-5.1); Sodium 142 mmol/L (135-145); Total Protein 7.5 g/dL (6.5-8.0); Uric Acid 7.1 mg/dL (3.4-7.0)
== END 2021-05-04 14:22 | disposition home or self-care (01) ==
LOC: HO.LAB 14:21
PROVIDERS: PCP Internal Medicine; Visit Provider Internal Medicine
DX: E11.9 Type 2 diabetes mellitus without complications (principal); Z87.39 Personal history of other diseases of the musculoskeletal system and connective tissue
CPT/HCPCS: 36415; 80053; 83036; 84550

== ENCOUNTER 2021-05-20 15:07 | Outpatient (REF) | payer MEDICARE, MEDICAID, SELFPAY ==
[2021-05-20 15:18] LABS: MANUAL DIFF FLAG NO
[2021-05-20 15:41] LABS: Basophils Absolute Auto 0.1 X10*3/uL (0.0-0.2); Basophils Percent Auto 0.6 % (0-2); Eosinophils Absolute Auto 0.8 X10*3/uL (0.0-0.4); Eosinophils Percent Auto 9.7 % (0-4); Hematocrit 38.8 % (42.0-52.0); Hemoglobin 13.1 g/dl (14.0-18.0); Imm Gran Abs Auto 0.04 X10*3/uL (0.00-0.03); Imm Gran Pct Auto 0.5 % (0.0-0.4); Lymphocytes Absolute Auto 2.5 X10*3/uL (1.2-4.9); Lymphocytes Percent Auto 29.6 % (20-40); Mean Corpuscular HGB Conc 33.8 g/dl (31.0-36.0); Mean Corpuscular Hemoglobin 29.8 pg (27.0-33.0); Mean Corpuscular Volume 88.2 fL (80.0-98.0); Monocytes Absolute Auto 0.5 X10*3/uL (0.1-1.2); Monocytes Percent Auto 5.9 % (2-11); Neut%MD 53.7 %; Neutrophils Absolute Auto 4.6 x10*3/uL (2.0-8.3); Neutrophils Percent Auto 53.7 % (45-73); Platelet Count 188 X10*3/uL (160-400); Red Cell Distribution Width 13.4 % (11.0-16.0); WBCANC 8.5 X10*3/uL; White Blood Count 8.5 X10*3/uL (4.8-10.8)
[2021-05-20 15:46] LABS: INTERNATIONAL NORM RATIO 2.6 (0.9-1.1); Prothrombin Time 30.1 SEC (9.9-13.0)
== END 2021-05-20 15:08 | disposition home or self-care (01) ==
LOC: HO.LABR 15:07
PROVIDERS: Absent Provider Internal Medicine; PCP Internal Medicine; Visit Provider Psychiatry & Neurology Child & Adolescent Psychiatry
DX: Z86.718 Personal history of other venous thrombosis and embolism (principal); Z79.899 Other long term (current) drug therapy
CPT/HCPCS: 36415; 85025; 85610

== ENCOUNTER 2021-06-20 09:03 | Outpatient (REF) | payer MEDICARE, MEDICAID, SELFPAY ==
[2021-06-20 10:23] LABS: INTERNATIONAL NORM RATIO 2.5 (0.9-1.1); Prothrombin Time 28.5 SEC (9.9-13.0)
== END 2021-06-20 09:04 | disposition home or self-care (01) ==
LOC: HO.10HDLR 09:03
PROVIDERS: Visit Provider Internal Medicine
DX: Z86.718 Personal history of other venous thrombosis and embolism (principal)
CPT/HCPCS: 36415; 85610

== ENCOUNTER 2021-06-24 09:08 | Outpatient (REF) | payer MEDICARE, MEDICAID, SELFPAY ==
[2021-06-24 12:19] LABS: Estimated Average Glucose 114 mg/dL; Hemoglobin A1c % 5.6 %
[2021-06-24 12:21] LABS: Alanine Aminotransferase 37 U/L (0-40); Albumin Level 4.3 g/dL (3.5-5.0); Alkaline Phosphatase 90 U/L (39-117); Anion Gap 12 (12-20); Aspartate Amino Transferase 23 U/L (5-37); Bilirubin Total 0.2 mg/dL (0.0-1.0); Blood Urea Nitrogen 15 mg/dL (9-16); Calcium 10.3 mg/dL (8.4-10.2); Carbon Dioxide 31 mmol/L (22-29); Chloride 103 mmol/L (96-108); Estimated Glomerular Filt Rate > 60; Glucose Random 91 mg/dL (60-115); Potassium 3.9 mmol/L (3.3-5.1); Sodium 142 mmol/L (135-145); Total Protein 7.4 g/dL (6.5-8.0); Uric Acid 7.6 mg/dL (3.4-7.0)
[2021-06-24 12:42] LABS: Microalbum/Creatinine Ratio Ur 20.6 ug/mg cr
== END 2021-06-24 09:09 | disposition home or self-care (01) ==
LOC: HO.10HDL 09:08
PROVIDERS: Visit Provider Internal Medicine
DX: M10.9 Gout, unspecified (principal); E11.9 Type 2 diabetes mellitus without complications; E78.00 Pure hypercholesterolemia, unspecified; J45.909 Unspecified asthma, uncomplicated
CPT/HCPCS: 36415; 80053; 82043; 83036; 84550

== ENCOUNTER 2021-07-01 08:25 | Outpatient (REF) | payer MEDICARE, MEDICAID, SELFPAY ==
[2021-07-01 10:37] LABS: MANUAL DIFF FLAG NO
[2021-07-01 10:40] LABS: Basophils Percent Auto 0.4 % (0-2); Eosinophils Absolute Auto 0.9 X10*3/uL (0.0-0.4); Eosinophils Percent Auto 9.3 % (0-4); Hematocrit 39.3 % (42.0-52.0); Hemoglobin 12.8 g/dl (14.0-18.0); Imm Gran Abs Auto 0.02 X10*3/uL (0.00-0.03); Imm Gran Pct Auto 0.2 % (0.0-0.4); Lymphocytes Absolute Auto 1.8 X10*3/uL (1.2-4.9); Lymphocytes Percent Auto 19.3 % (20-40); Mean Corpuscular HGB Conc 32.6 g/dl (31.0-36.0); Mean Corpuscular Hemoglobin 29.3 pg (27.0-33.0); Mean Corpuscular Volume 89.9 fL (80.0-98.0); Mean Platelet Volume 11.1 fL (9.4-12.4); Monocytes Absolute Auto 0.4 X10*3/uL (0.1-1.2); Monocytes Percent Auto 3.8 % (2-11); Neutrophils Absolute Auto 6.1 x10*3/uL (2.0-8.3); Platelet Count 194 X10*3/uL (160-400); Red Blood Count 4.37 X10*6/uL (4.60-5.80); Red Cell Distribution Width 13.6 % (11.0-16.0); White Blood Count 9.2 X10*3/uL (4.8-10.8)
== END 2021-07-01 08:26 | disposition home or self-care (01) ==
LOC: HO.10HDLR 08:25
PROVIDERS: Visit Provider Psychiatry & Neurology Psychiatry
DX: Z79.899 Other long term (current) drug therapy (principal)
CPT/HCPCS: 36415; 85025

== ENCOUNTER 2021-07-20 08:48 | Outpatient (REF) | payer MEDICARE, MEDICAID, SELFPAY ==
[2021-07-20 10:31] LABS: MANUAL DIFF FLAG NO
[2021-07-20 10:36] LABS: Basophils Absolute Auto 0.1 X10*3/uL (0.0-0.2); Basophils Percent Auto 0.8 % (0-2); Eosinophils Absolute Auto 0.8 X10*3/uL (0.0-0.4); Eosinophils Percent Auto 13.2 % (0-4); Hematocrit 40.4 % (42.0-52.0); Hemoglobin 13.4 g/dl (14.0-18.0); Imm Gran Abs Auto 0.01 X10*3/uL (0.00-0.03); Imm Gran Pct Auto 0.2 % (0.0-0.4); Lymphocytes Absolute Auto 1.8 X10*3/uL (1.2-4.9); Lymphocytes Percent Auto 30.4 % (20-40); Mean Corpuscular HGB Conc 33.2 g/dl (31.0-36.0); Mean Corpuscular Hemoglobin 29.8 pg (27.0-33.0); Mean Corpuscular Volume 89.8 fL (80.0-98.0); Mean Platelet Volume 11.2 fL (9.4-12.4); Monocytes Absolute Auto 0.2 X10*3/uL (0.1-1.2); Monocytes Percent Auto 4.1 % (2-11); Neutrophils Percent Auto 51.3 % (45-73); Platelet Count 190 X10*3/uL (160-400); Red Cell Distribution Width 13.6 % (11.0-16.0); White Blood Count 5.9 X10*3/uL (4.8-10.8)
[2021-07-20 10:42] LABS: INTERNATIONAL NORM RATIO 2.4 (0.9-1.1); Prothrombin Time 27.7 SEC (9.9-13.0)
== END 2021-07-20 08:49 | disposition home or self-care (01) ==
LOC: HO.10HDL 08:48
PROVIDERS: PCP Internal Medicine; Visit Provider Psychiatry & Neurology Psychiatry
DX: Z86.718 Personal history of other venous thrombosis and embolism (principal)
CPT/HCPCS: 36415; 85025; 85610

== ENCOUNTER 2021-08-16 08:23 | Outpatient (REF) | payer MEDICARE, MEDICAID, SELFPAY ==
[2021-08-16 08:45] LABS: MANUAL DIFF FLAG NO
[2021-08-16 10:08] LABS: INTERNATIONAL NORM RATIO 2.4 (0.9-1.1); Prothrombin Time 27.5 SEC (9.9-13.0)
[2021-08-16 10:10] LABS: Basophils Absolute Auto 0.1 X10*3/uL (0.0-0.2); Basophils Percent Auto 0.9 % (0-2); Eosinophils Absolute Auto 0.9 X10*3/uL (0.0-0.4); Eosinophils Percent Auto 12.6 % (0-4); Hematocrit 39.6 % (42.0-52.0); Imm Gran Abs Auto 0.02 X10*3/uL (0.00-0.03); Imm Gran Pct Auto 0.3 % (0.0-0.4); Lymphocytes Percent Auto 29.6 % (20-40); Mean Corpuscular HGB Conc 32.8 g/dl (31.0-36.0); Mean Corpuscular Hemoglobin 29.4 pg (27.0-33.0); Mean Corpuscular Volume 89.6 fL (80.0-98.0); Mean Platelet Volume 11.3 fL (9.4-12.4); Monocytes Absolute Auto 0.3 X10*3/uL (0.1-1.2); Monocytes Percent Auto 4.4 % (2-11); Neutrophils Absolute Auto 3.6 x10*3/uL (2.0-8.3); Neutrophils Percent Auto 52.2 % (45-73); Platelet Count 204 X10*3/uL (160-400); Red Blood Count 4.42 X10*6/uL (4.60-5.80); Red Cell Distribution Width 13.3 % (11.0-16.0); White Blood Count 6.9 X10*3/uL (4.8-10.8)
== END 2021-08-16 08:24 | disposition home or self-care (01) ==
LOC: HO.LABR 08:23
PROVIDERS: Absent Provider Internal Medicine; PCP Internal Medicine; Visit Provider Psychiatry & Neurology Child & Adolescent Psychiatry
DX: Z79.899 Other long term (current) drug therapy (principal); Z86.718 Personal history of other venous thrombosis and embolism
CPT/HCPCS: 36415; 85025; 85610

== ENCOUNTER 2021-09-20 08:53 | Outpatient (REF) | payer MEDICARE, MEDICAID, SELFPAY ==
[2021-09-20 09:38] LABS: MANUAL DIFF FLAG NO
[2021-09-20 10:06] LABS: Basophils Absolute Auto 0.1 X10*3/uL (0.0-0.2); Basophils Percent Auto 0.6 % (0-2); Eosinophils Absolute Auto 0.8 X10*3/uL (0.0-0.4); Eosinophils Percent Auto 7.7 % (0-4); Hemoglobin 13.2 g/dl (14.0-18.0); Imm Gran Abs Auto 0.03 X10*3/uL (0.00-0.03); Imm Gran Pct Auto 0.3 % (0.0-0.4); Lymphocytes Absolute Auto 2.1 X10*3/uL (1.2-4.9); Lymphocytes Percent Auto 20.7 % (20-40); Mean Corpuscular Volume 87.9 fL (80.0-98.0); Mean Platelet Volume 10.9 fL (9.4-12.4); Monocytes Absolute Auto 0.5 X10*3/uL (0.1-1.2); Monocytes Percent Auto 4.8 % (2-11); Neutrophils Absolute Auto 6.7 x10*3/uL (2.0-8.3); Neutrophils Percent Auto 65.9 % (45-73); Platelet Count 201 X10*3/uL (160-400); Red Blood Count 4.55 X10*6/uL (4.60-5.80); Red Cell Distribution Width 13.5 % (11.0-16.0); White Blood Count 10.2 X10*3/uL (4.8-10.8)
[2021-09-20 10:14] LABS: INTERNATIONAL NORM RATIO 2.6 (0.9-1.1); Prothrombin Time 30.3 SEC (9.9-13.0)
[2021-09-20 10:34] LABS: Estimated Average Glucose 123 mg/dL; Hemoglobin A1c % 5.9 %
[2021-09-20 10:58] LABS: Alanine Aminotransferase 41 U/L (0-40); Albumin Level 4.4 g/dL (3.5-5.0); Alkaline Phosphatase 96 U/L (39-117); Anion Gap 14 (12-20); Aspartate Amino Transferase 24 U/L (5-37); Bilirubin Total 0.5 mg/dL (0.0-1.0); Blood Urea Nitrogen 18 mg/dL (9-16); Calcium 10.3 mg/dL (8.4-10.2); Carbon Dioxide 28 mmol/L (22-29); Chloride 104 mmol/L (96-108); Estimated Glomerular Filt Rate 60; Glucose Random 120 mg/dL (60-115); Sodium 142 mmol/L (135-145); Total Protein 7.5 g/dL (6.5-8.0)
== END 2021-09-20 08:54 | disposition home or self-care (01) ==
LOC: HO.LAB 08:53
PROVIDERS: Absent Provider Psychiatry & Neurology Child & Adolescent Psychiatry; PCP Internal Medicine; Visit Provider Internal Medicine
DX: Z86.718 Personal history of other venous thrombosis and embolism (principal); E11.9 Type 2 diabetes mellitus without complications; R79.89 Other specified abnormal findings of blood chemistry; Z79.899 Other long term (current) drug therapy
CPT/HCPCS: 36415; 80053; 83036; 85025; 85610

== ENCOUNTER 2021-10-17 15:08 | Outpatient (REF) | payer MEDICARE, MEDICAID, SELFPAY ==
[2021-10-17 15:24] LABS: MANUAL DIFF FLAG NO
[2021-10-17 15:48] LABS: Basophils Percent Auto 0.5 % (0-2); Eosinophils Absolute Auto 0.5 X10*3/uL (0.0-0.4); Eosinophils Percent Auto 5.7 % (0-4); Hemoglobin 12.6 g/dl (14.0-18.0); Imm Gran Abs Auto 0.03 X10*3/uL (0.00-0.03); Imm Gran Pct Auto 0.4 % (0.0-0.4); Lymphocytes Absolute Auto 2.9 X10*3/uL (1.2-4.9); Lymphocytes Percent Auto 35.3 % (20-40); Mean Corpuscular HGB Conc 33.2 g/dl (31.0-36.0); Mean Corpuscular Hemoglobin 28.9 pg (27.0-33.0); Mean Corpuscular Volume 87.2 fL (80.0-98.0); Mean Platelet Volume 10.5 fL (9.4-12.4); Monocytes Absolute Auto 0.5 X10*3/uL (0.1-1.2); Monocytes Percent Auto 5.9 % (2-11); Neutrophils Absolute Auto 4.2 x10*3/uL (2.0-8.3); Neutrophils Percent Auto 52.2 % (45-73); Platelet Count 260 X10*3/uL (160-400); Red Blood Count 4.36 X10*6/uL (4.60-5.80); Red Cell Distribution Width 13.3 % (11.0-16.0); White Blood Count 8.1 X10*3/uL (4.8-10.8)
[2021-10-17 15:53] LABS: INTERNATIONAL NORM RATIO 2.6 (0.9-1.1); Prothrombin Time 30.5 SEC (9.9-13.0)
== END 2021-10-17 15:09 | disposition home or self-care (01) ==
LOC: HO.LAB 15:08
PROVIDERS: Absent Provider Psychiatry & Neurology Child & Adolescent Psychiatry; Visit Provider Internal Medicine
DX: Z86.718 Personal history of other venous thrombosis and embolism (principal)
CPT/HCPCS: 36415; 85025; 85610

== ENCOUNTER 2021-11-15 12:17 | Outpatient (REF) | payer MEDICARE, MEDICAID, SELFPAY ==
[2021-11-15 12:31] LABS: MANUAL DIFF FLAG NO
[2021-11-15 12:48] LABS: Basophils Percent Auto 0.5 % (0-2); Eosinophils Absolute Auto 0.7 X10*3/uL (0.0-0.4); Eosinophils Percent Auto 8.7 % (0-4); Hematocrit 40.6 % (42.0-52.0); Hemoglobin 13.2 g/dl (14.0-18.0); Imm Gran Abs Auto 0.03 X10*3/uL (0.00-0.03); Imm Gran Pct Auto 0.4 % (0.0-0.4); Lymphocytes Absolute Auto 2.6 X10*3/uL (1.2-4.9); Mean Corpuscular HGB Conc 32.5 g/dl (31.0-36.0); Mean Corpuscular Hemoglobin 28.8 pg (27.0-33.0); Mean Corpuscular Volume 88.5 fL (80.0-98.0); Mean Platelet Volume 10.9 fL (9.4-12.4); Monocytes Absolute Auto 0.4 X10*3/uL (0.1-1.2); Neutrophils Absolute Auto 4.5 x10*3/uL (2.0-8.3); Neutrophils Percent Auto 54.4 % (45-73); Platelet Count 196 X10*3/uL (160-400); Red Blood Count 4.59 X10*6/uL (4.60-5.80); Red Cell Distribution Width 14.1 % (11.0-16.0); White Blood Count 8.2 X10*3/uL (4.8-10.8)
[2021-11-15 12:53] LABS: INTERNATIONAL NORM RATIO 2.5 (0.9-1.1); Prothrombin Time 30.1 SEC (10.0-13.1)
== END 2021-11-15 12:18 | disposition home or self-care (01) ==
LOC: HO.LAB 12:17
PROVIDERS: Absent Provider Psychiatry & Neurology Child & Adolescent Psychiatry; PCP Internal Medicine; Referring Provider Psychiatry & Neurology Psychiatry; Visit Provider Internal Medicine
DX: Z86.718 Personal history of other venous thrombosis and embolism (principal)
CPT/HCPCS: 36415; 85025; 85610

== ENCOUNTER 2021-12-14 08:36 | Outpatient (REF) | payer MEDICARE, MEDICAID, SELFPAY ==
[2021-12-14 10:49] LABS: MANUAL DIFF FLAG NO
[2021-12-14 11:03] LABS: Basophils Absolute Auto 0.1 X10*3/uL (0.0-0.2); Basophils Percent Auto 0.6 % (0-2); Eosinophils Absolute Auto 0.9 X10*3/uL (0.0-0.4); Eosinophils Percent Auto 8.8 % (0-4); Hematocrit 39.6 % (42.0-52.0); Hemoglobin 13.2 g/dl (14.0-18.0); Imm Gran Abs Auto 0.02 X10*3/uL (0.00-0.03); Imm Gran Pct Auto 0.2 % (0.0-0.4); Lymphocytes Percent Auto 19.1 % (20-40); Mean Corpuscular HGB Conc 33.3 g/dl (31.0-36.0); Mean Corpuscular Hemoglobin 29.5 pg (27.0-33.0); Mean Corpuscular Volume 88.4 fL (80.0-98.0); Mean Platelet Volume 11.6 fL (9.4-12.4); Monocytes Absolute Auto 0.6 X10*3/uL (0.1-1.2); Monocytes Percent Auto 5.4 % (2-11); Neutrophils Percent Auto 65.9 % (45-73); Platelet Count 194 X10*3/uL (160-400); Red Blood Count 4.48 X10*6/uL (4.60-5.80); Red Cell Distribution Width 13.7 % (11.0-16.0); White Blood Count 10.6 X10*3/uL (4.8-10.8)
[2021-12-14 11:09] LABS: INTERNATIONAL NORM RATIO 1.1 (0.9-1.1); Prothrombin Time 12.2 SEC (10.0-13.1)
== END 2021-12-14 08:37 | disposition home or self-care (01) ==
LOC: HO.10HDLR 08:36
PROVIDERS: Absent Provider Psychiatry & Neurology Psychiatry; Visit Provider Internal Medicine
DX: Z86.718 Personal history of other venous thrombosis and embolism (principal); Z79.899 Other long term (current) drug therapy
CPT/HCPCS: 36415; 85025; 85610

== ENCOUNTER 2022-01-12 09:33 | Outpatient (REF) | payer MEDICARE, MEDICAID, SELFPAY ==
[2022-01-12 11:02] LABS: MANUAL DIFF FLAG NO
[2022-01-12 11:05] LABS: Basophils Absolute Auto 0.1 X10*3/uL (0.0-0.2); Basophils Percent Auto 0.7 % (0-2); Eosinophils Absolute Auto 0.6 X10*3/uL (0.0-0.4); Eosinophils Percent Auto 9.1 % (0-4); Hematocrit 40.1 % (42.0-52.0); Hemoglobin 13.4 g/dl (14.0-18.0); Imm Gran Abs Auto 0.03 X10*3/uL (0.00-0.03); Imm Gran Pct Auto 0.4 % (0.0-0.4); Lymphocytes Percent Auto 29.9 % (20-40); Mean Corpuscular HGB Conc 33.4 g/dl (31.0-36.0); Mean Corpuscular Hemoglobin 29.5 pg (27.0-33.0); Mean Corpuscular Volume 88.3 fL (80.0-98.0); Mean Platelet Volume 11.4 fL (9.4-12.4); Monocytes Absolute Auto 0.4 X10*3/uL (0.1-1.2); Monocytes Percent Auto 5.2 % (2-11); Neutrophils Absolute Auto 3.7 x10*3/uL (2.0-8.3); Neutrophils Percent Auto 54.7 % (45-73); Platelet Count 187 X10*3/uL (160-400); Red Blood Count 4.54 X10*6/uL (4.60-5.80); Red Cell Distribution Width 13.4 % (11.0-16.0); White Blood Count 6.7 X10*3/uL (4.8-10.8)
[2022-01-12 11:12] LABS: Prothrombin Time 11.7 SEC (10.0-13.1)
[2022-01-12 11:22] LABS: Estimated Average Glucose 128 mg/dL; Hemoglobin A1c % 6.1 %
[2022-01-12 11:38] LABS: Alanine Aminotransferase 41 U/L (0-40); Albumin Level 4.5 g/dL (3.5-5.0); Alkaline Phosphatase 84 U/L (39-117); Anion Gap 15 (12-20); Aspartate Amino Transferase 19 U/L (5-37); Bilirubin Total 0.3 mg/dL (0.0-1.0); Blood Urea Nitrogen 23 mg/dL (9-16); Calcium 9.9 mg/dL (8.4-10.2); Carbon Dioxide 28 mmol/L (22-29); Chloride 104 mmol/L (96-108); Cholesterol 172 mg/dL; Estimated Glomerular Filt Rate > 60; Glucose Fasting 112 mg/dL (60-99); HDL Cholesterol 47 mg/dL; LDL Cholesterol Calculated 93 mg/dl; Potassium 4.3 mmol/L (3.3-5.1); Sodium 143 mmol/L (135-145); Total Protein 7.4 g/dL (6.5-8.0); Triglycerides 162 mg/dL
[2022-01-12 14:27] LABS: Creatinine Urine 34.23 mg/dL; Microalbum/Creatinine Ratio Ur 20.4 ug/mg cr
== END 2022-01-12 09:34 | disposition home or self-care (01) ==
LOC: HO.10HDLR 09:33
PROVIDERS: Absent Provider Psychiatry & Neurology Psychiatry; Visit Provider Internal Medicine
DX: E78.00 Pure hypercholesterolemia, unspecified (principal); E11.9 Type 2 diabetes mellitus without complications; Z86.718 Personal history of other venous thrombosis and embolism
CPT/HCPCS: 36415; 80053; 80061; 82043; 83036; 85025; 85610

== ENCOUNTER 2022-02-13 08:14 | Outpatient (REF) | payer MEDICARE, MEDICAID, SELFPAY ==
[2022-02-13 10:33] LABS: MANUAL DIFF FLAG NO
[2022-02-13 10:49] LABS: Basophils Percent Auto 0.6 % (0-2); Eosinophils Absolute Auto 0.7 X10*3/uL (0.0-0.4); Eosinophils Percent Auto 10.1 % (0-4); Hematocrit 39.5 % (42.0-52.0); Hemoglobin 13.2 g/dl (14.0-18.0); Imm Gran Abs Auto 0.01 X10*3/uL (0.00-0.03); Imm Gran Pct Auto 0.1 % (0.0-0.4); Lymphocytes Absolute Auto 1.9 X10*3/uL (1.2-4.9); Lymphocytes Percent Auto 27.6 % (20-40); Mean Corpuscular HGB Conc 33.4 g/dl (31.0-36.0); Mean Corpuscular Hemoglobin 29.3 pg (27.0-33.0); Mean Corpuscular Volume 87.6 fL (80.0-98.0); Mean Platelet Volume 10.8 fL (9.4-12.4); Monocytes Absolute Auto 0.3 X10*3/uL (0.1-1.2); Monocytes Percent Auto 4.3 % (2-11); Neutrophils Absolute Auto 3.8 x10*3/uL (2.0-8.3); Neutrophils Percent Auto 57.3 % (45-73); Platelet Count 185 X10*3/uL (160-400); Red Blood Count 4.51 X10*6/uL (4.60-5.80); Red Cell Distribution Width 13.2 % (11.0-16.0); White Blood Count 6.7 X10*3/uL (4.8-10.8)
[2022-02-13 11:06] LABS: Prothrombin Time 11.2 SEC (10.0-13.1)
== END 2022-02-13 08:15 | disposition home or self-care (01) ==
LOC: HO.10HDLR 08:14
PROVIDERS: Absent Provider Psychiatry & Neurology Psychiatry; Visit Provider Internal Medicine
DX: Z86.718 Personal history of other venous thrombosis and embolism (principal); Z79.899 Other long term (current) drug therapy
CPT/HCPCS: 36415; 85025; 85610

== ENCOUNTER 2022-03-15 07:55 | Outpatient (REF) | payer MEDICARE, MEDICAID, SELFPAY ==
[2022-03-15 10:39] LABS: MANUAL DIFF FLAG NO
[2022-03-15 10:49] LABS: Basophils Absolute Auto 0.1 X10*3/uL (0.0-0.2); Basophils Percent Auto 0.7 % (0-2); Eosinophils Absolute Auto 0.7 X10*3/uL (0.0-0.4); Eosinophils Percent Auto 10.3 % (0-4); Hematocrit 41.7 % (42.0-52.0); Hemoglobin 13.8 g/dl (14.0-18.0); Imm Gran Abs Auto 0.01 X10*3/uL (0.00-0.03); Imm Gran Pct Auto 0.1 % (0.0-0.4); Lymphocytes Absolute Auto 2.1 X10*3/uL (1.2-4.9); Lymphocytes Percent Auto 29.3 % (20-40); Mean Corpuscular HGB Conc 33.1 g/dl (31.0-36.0); Mean Corpuscular Hemoglobin 29.5 pg (27.0-33.0); Mean Corpuscular Volume 89.1 fL (80.0-98.0); Mean Platelet Volume 11.1 fL (9.4-12.4); Monocytes Absolute Auto 0.3 X10*3/uL (0.1-1.2); Monocytes Percent Auto 3.6 % (2-11); Platelet Count 198 X10*3/uL (160-400); Red Blood Count 4.68 X10*6/uL (4.60-5.80); Red Cell Distribution Width 13.3 % (11.0-16.0); White Blood Count 7.2 X10*3/uL (4.8-10.8)
== END 2022-03-15 07:56 | disposition home or self-care (01) ==
LOC: HO.10HDLR 07:55
PROVIDERS: Absent Provider Psychiatry & Neurology Psychiatry; Visit Provider Internal Medicine
DX: Z86.718 Personal history of other venous thrombosis and embolism (principal)
CPT/HCPCS: 36415; 85025

== ENCOUNTER 2022-04-20 08:04 | Outpatient (REF) | payer MEDICARE, MEDICAID, SELFPAY ==
[2022-04-20 10:21] LABS: MANUAL DIFF FLAG NO
[2022-04-20 10:30] LABS: Basophils Absolute Auto 0.1 X10*3/uL (0.0-0.2); Basophils Percent Auto 0.7 % (0-2); Eosinophils Absolute Auto 0.6 X10*3/uL (0.0-0.4); Eosinophils Percent Auto 8.9 % (0-4); Hematocrit 40.6 % (42.0-52.0); Hemoglobin 13.1 g/dl (14.0-18.0); Imm Gran Abs Auto 0.04 X10*3/uL (0.00-0.03); Imm Gran Pct Auto 0.6 % (0.0-0.4); Lymphocytes Absolute Auto 2.3 X10*3/uL (1.2-4.9); Lymphocytes Percent Auto 33.9 % (20-40); Mean Corpuscular HGB Conc 32.3 g/dl (31.0-36.0); Mean Corpuscular Hemoglobin 28.9 pg (27.0-33.0); Mean Corpuscular Volume 89.4 fL (80.0-98.0); Mean Platelet Volume 11.3 fL (9.4-12.4); Monocytes Absolute Auto 0.4 X10*3/uL (0.1-1.2); Monocytes Percent Auto 5.1 % (2-11); Neutrophils Absolute Auto 3.5 x10*3/uL (2.0-8.3); Neutrophils Percent Auto 50.8 % (45-73); Platelet Count 190 X10*3/uL (160-400); Red Blood Count 4.54 X10*6/uL (4.60-5.80); White Blood Count 6.8 X10*3/uL (4.8-10.8)
== END 2022-04-20 08:05 | disposition home or self-care (01) ==
LOC: HO.10HDL 08:04
PROVIDERS: Visit Provider Psychiatry & Neurology Psychiatry
DX: Z79.899 Other long term (current) drug therapy (principal)
CPT/HCPCS: 36415; 85025

== ENCOUNTER 2022-05-17 07:47 | Outpatient (REF) | payer MEDICARE, MEDICAID, SELFPAY ==
[2022-05-17 10:46] LABS: MANUAL DIFF FLAG NO
[2022-05-17 10:51] LABS: Basophils Percent Auto 0.5 % (0-2); Eosinophils Absolute Auto 0.9 X10*3/uL (0.0-0.4); Eosinophils Percent Auto 10.6 % (0-4); Hematocrit 40.4 % (42.0-52.0); Hemoglobin 13.3 g/dl (14.0-18.0); Imm Gran Abs Auto 0.02 X10*3/uL (0.00-0.03); Imm Gran Pct Auto 0.2 % (0.0-0.4); Lymphocytes Absolute Auto 1.9 X10*3/uL (1.2-4.9); Lymphocytes Percent Auto 22.9 % (20-40); Mean Corpuscular HGB Conc 32.9 g/dl (31.0-36.0); Mean Corpuscular Hemoglobin 28.9 pg (27.0-33.0); Mean Corpuscular Volume 87.6 fL (80.0-98.0); Monocytes Absolute Auto 0.4 X10*3/uL (0.1-1.2); Monocytes Percent Auto 5.4 % (2-11); Neutrophils Absolute Auto 4.9 x10*3/uL (2.0-8.3); Neutrophils Percent Auto 60.4 % (45-73); Platelet Count 170 X10*3/uL (160-400); Red Blood Count 4.61 X10*6/uL (4.60-5.80); White Blood Count 8.1 X10*3/uL (4.8-10.8)
== END 2022-05-17 07:48 | disposition home or self-care (01) ==
LOC: HO.10HDLR 07:47
PROVIDERS: Visit Provider Psychiatry & Neurology Psychiatry
DX: Z79.899 Other long term (current) drug therapy (principal)
CPT/HCPCS: 36415; 85025

== ENCOUNTER 2022-05-22 15:47 | Outpatient (REF) | payer MEDICARE, MEDICAID, SELFPAY ==
--- NOTE | ~2022-05-22 | XR_ITS ---
EXAMINATION: XR CHEST CLINICAL INFORMATION: Cough. COMPARISON: None TECHNIQUE: 2 views of the chest were obtained. FINDINGS: No significant abnormality is noted involving the heart, lungs, mediastinum, bony thorax or soft tissues. XR/XR chest 2V IMPRESSION: Unremarkable chest examination.
[2022-05-22 16:23] LABS: MANUAL DIFF FLAG NO
[2022-05-22 16:49] LABS: Basophils Absolute Auto 0.1 X10*3/uL (0.0-0.2); Basophils Percent Auto 0.8 % (0-2); Eosinophils Percent Auto 11.7 % (0-4); Hematocrit 36.9 % (42.0-52.0); Hemoglobin 12.3 g/dl (14.0-18.0); Imm Gran Abs Auto 0.04 X10*3/uL (0.00-0.03); Imm Gran Pct Auto 0.5 % (0.0-0.4); Lymphocytes Absolute Auto 2.3 X10*3/uL (1.2-4.9); Lymphocytes Percent Auto 26.5 % (20-40); Mean Corpuscular HGB Conc 33.3 g/dl (31.0-36.0); Mean Corpuscular Hemoglobin 29.4 pg (27.0-33.0); Mean Corpuscular Volume 88.1 fL (80.0-98.0); Mean Platelet Volume 10.7 fL (9.4-12.4); Monocytes Absolute Auto 0.7 X10*3/uL (0.1-1.2); Monocytes Percent Auto 8.2 % (2-11); Neutrophils Absolute Auto 4.6 x10*3/uL (2.0-8.3); Neutrophils Percent Auto 52.3 % (45-73); Platelet Count 179 X10*3/uL (160-400); Red Blood Count 4.19 X10*6/uL (4.60-5.80); Red Cell Distribution Width 12.9 % (11.0-16.0); White Blood Count 8.8 X10*3/uL (4.8-10.8)
[2022-05-22 16:57] LABS: Estimated Average Glucose 137 mg/dL; Hemoglobin A1c % 6.4 %
[2022-05-22 17:25] LABS: Alanine Aminotransferase 38 U/L (0-40); Albumin Level 4.2 g/dL (3.5-5.0); Alkaline Phosphatase 96 U/L (39-117); Anion Gap 14 (12-20); Aspartate Amino Transferase 17 U/L (5-37); Bilirubin Total 0.4 mg/dL (0.0-1.0); Blood Urea Nitrogen 16 mg/dL (9-16); Calcium 9.5 mg/dL (8.4-10.2); Carbon Dioxide 29 mmol/L (22-29); Chloride 105 mmol/L (96-108); Estimated Glomerular Filt Rate > 60; Glucose Random 125 mg/dL (60-115); Sodium 144 mmol/L (135-145)
== END 2022-05-22 15:48 | disposition home or self-care (01) ==
LOC: HO.LAB 15:47
PROVIDERS: PCP Internal Medicine; Visit Provider Internal Medicine
DX: R05.9 Cough, unspecified (principal); E11.9 Type 2 diabetes mellitus without complications; M10.9 Gout, unspecified; E78.00 Pure hypercholesterolemia, unspecified; R07.1 Chest pain on breathing
CPT/HCPCS: 36415; 71046; 80053; 83036; 85025

== ENCOUNTER 2022-06-15 09:08 | Outpatient (REF) | payer MEDICARE, MEDICAID, SELFPAY ==
[2022-06-15 10:54] LABS: MANUAL DIFF FLAG NO
[2022-06-15 11:29] LABS: Basophils Absolute Auto 0.1 X10*3/uL (0.0-0.2); Basophils Percent Auto 0.8 % (0-2); Eosinophils Absolute Auto 0.9 X10*3/uL (0.0-0.4); Eosinophils Percent Auto 10.8 % (0-4); Hematocrit 40.5 % (42.0-52.0); Hemoglobin 13.2 g/dl (14.0-18.0); Imm Gran Abs Auto 0.01 X10*3/uL (0.00-0.03); Imm Gran Pct Auto 0.1 % (0.0-0.4); Lymphocytes Absolute Auto 2.1 X10*3/uL (1.2-4.9); Lymphocytes Percent Auto 26.4 % (20-40); Mean Corpuscular HGB Conc 32.6 g/dl (31.0-36.0); Mean Corpuscular Hemoglobin 28.8 pg (27.0-33.0); Mean Corpuscular Volume 88.2 fL (80.0-98.0); Mean Platelet Volume 11.3 fL (9.4-12.4); Monocytes Absolute Auto 0.4 X10*3/uL (0.1-1.2); Monocytes Percent Auto 4.7 % (2-11); Neutrophils Absolute Auto 4.5 x10*3/uL (2.0-8.3); Neutrophils Percent Auto 57.2 % (45-73); Platelet Count 177 X10*3/uL (160-400); Red Blood Count 4.59 X10*6/uL (4.60-5.80); Red Cell Distribution Width 13.2 % (11.0-16.0); White Blood Count 7.9 X10*3/uL (4.8-10.8)
== END 2022-06-15 09:09 | disposition home or self-care (01) ==
LOC: HO.10HDLR 09:08
PROVIDERS: Visit Provider Psychiatry & Neurology Psychiatry
DX: Z79.899 Other long term (current) drug therapy (principal)
CPT/HCPCS: 36415; 85025

== ENCOUNTER 2022-07-14 07:37 | Outpatient (REF) | payer MEDICARE, MEDICAID, SELFPAY ==
[2022-07-14 10:47] LABS: Prothrombin Time 10.9 SEC (10.0-13.1)
== END 2022-07-14 07:38 | disposition home or self-care (01) ==
LOC: HO.10HDLR 07:37
PROVIDERS: Visit Provider Internal Medicine
DX: Z86.718 Personal history of other venous thrombosis and embolism (principal)
CPT/HCPCS: 36415; 85610

== ENCOUNTER 2022-08-15 07:36 | Outpatient (REF) | payer MEDICARE, MEDICAID, SELFPAY ==
[2022-08-15 10:42] LABS: MANUAL DIFF FLAG NO
[2022-08-15 10:51] LABS: Basophils Percent Auto 0.7 % (0-2); Eosinophils Absolute Auto 0.5 X10*3/uL (0.0-0.4); Eosinophils Percent Auto 8.8 % (0-4); Hematocrit 42.1 % (42.0-52.0); Hemoglobin 13.6 g/dl (14.0-18.0); Imm Gran Abs Auto 0.02 X10*3/uL (0.00-0.03); Imm Gran Pct Auto 0.3 % (0.0-0.4); Lymphocytes Absolute Auto 2.1 X10*3/uL (1.2-4.9); Lymphocytes Percent Auto 34.7 % (20-40); Mean Corpuscular HGB Conc 32.3 g/dl (31.0-36.0); Mean Corpuscular Hemoglobin 28.5 pg (27.0-33.0); Mean Corpuscular Volume 88.1 fL (80.0-98.0); Mean Platelet Volume 11.5 fL (9.4-12.4); Monocytes Absolute Auto 0.3 X10*3/uL (0.1-1.2); Monocytes Percent Auto 5.3 % (2-11); Neutrophils Percent Auto 50.2 % (45-73); Platelet Count 197 X10*3/uL (160-400); Red Blood Count 4.78 X10*6/uL (4.60-5.80); Red Cell Distribution Width 13.2 % (11.0-16.0)
[2022-08-15 11:00] LABS: Estimated Average Glucose 146 mg/dL; Hemoglobin A1c % 6.7 %
[2022-08-15 11:05] LABS: INTERNATIONAL NORM RATIO 0.9 (0.9-1.1); Prothrombin Time 10.1 SEC (10.0-13.1)
[2022-08-15 11:08] LABS: Alanine Aminotransferase 36 U/L (0-40); Albumin Level 4.5 g/dL (3.5-5.0); Alkaline Phosphatase 80 U/L (39-117); Anion Gap 16 (12-20); Aspartate Amino Transferase 20 U/L (5-37); Bilirubin Total 0.3 mg/dL (0.0-1.0); Blood Urea Nitrogen 20 mg/dL (9-16); Calcium 9.9 mg/dL (8.4-10.2); Carbon Dioxide 28 mmol/L (22-29); Chloride 104 mmol/L (96-108); Cholesterol 190 mg/dL; Estimated Glomerular Filt Rate > 60; Glucose Fasting 202 mg/dL (60-99); HDL Cholesterol 45 mg/dL; LDL Cholesterol Calculated 78 mg/dl; Potassium 4.1 mmol/L (3.3-5.1); Sodium 144 mmol/L (135-145); Total Protein 7.5 g/dL (6.5-8.0); Triglycerides 337 mg/dL
[2022-08-15 11:15] LABS: Valproate 12.5 mcg/mL (50.0-100.0)
[2022-08-15 11:16] LABS: Microalbum/Creatinine Ratio Ur 30.5 ug/mg cr
== END 2022-08-15 07:37 | disposition home or self-care (01) ==
LOC: HO.10HDL 07:36
PROVIDERS: Visit Provider Internal Medicine
DX: E11.9 Type 2 diabetes mellitus without complications (principal); E78.00 Pure hypercholesterolemia, unspecified; I82.409 Acute embolism and thrombosis of unspecified deep veins of unspecified lower extremity
CPT/HCPCS: 36415; 80053; 80061; 80164; 82043; 83036; 85025; 85610

== ENCOUNTER 2022-09-13 07:32 | Outpatient (REF) | payer MEDICARE, MEDICAID, SELFPAY ==
[2022-09-13 10:34] LABS: Prothrombin Time 11.2 SEC (10.0-13.1)
== END 2022-09-13 07:33 | disposition home or self-care (01) ==
LOC: HO.10HDLR 07:32
PROVIDERS: Visit Provider Internal Medicine
DX: I82.409 Acute embolism and thrombosis of unspecified deep veins of unspecified lower extremity (principal)
CPT/HCPCS: 36415; 85610

== ENCOUNTER 2022-10-13 07:32 | Outpatient (REF) | payer MEDICARE, MEDICAID, SELFPAY ==
[2022-10-13 10:58] LABS: Prothrombin Time 11.2 SEC (10.0-13.1)
== END 2022-10-13 07:33 | disposition home or self-care (01) ==
LOC: HO.10HDLR 07:32
PROVIDERS: Visit Provider Internal Medicine
DX: Z86.718 Personal history of other venous thrombosis and embolism (principal)
CPT/HCPCS: 36415; 85610

== ENCOUNTER 2022-11-09 07:23 | Outpatient (REF) | payer MEDICARE, MEDICAID, SELFPAY ==
[2022-11-09 10:47] LABS: MANUAL DIFF FLAG NO
[2022-11-09 10:52] LABS: Basophils Absolute Auto 0.1 X10*3/uL (0.0-0.2); Basophils Percent Auto 0.7 % (0-2); Eosinophils Absolute Auto 0.7 X10*3/uL (0.0-0.4); Eosinophils Percent Auto 10.4 % (0-4); Hematocrit 40.7 % (42.0-52.0); Hemoglobin 13.4 g/dl (14.0-18.0); Imm Gran Abs Auto 0.01 X10*3/uL (0.00-0.03); Imm Gran Pct Auto 0.1 % (0.0-0.4); Lymphocytes Absolute Auto 2.2 X10*3/uL (1.2-4.9); Lymphocytes Percent Auto 31.4 % (20-40); Mean Corpuscular HGB Conc 32.9 g/dl (31.0-36.0); Mean Corpuscular Hemoglobin 29.1 pg (27.0-33.0); Mean Corpuscular Volume 88.5 fL (80.0-98.0); Mean Platelet Volume 11.4 fL (9.4-12.4); Monocytes Absolute Auto 0.4 X10*3/uL (0.1-1.2); Monocytes Percent Auto 5.3 % (2-11); Neutrophils Absolute Auto 3.7 x10*3/uL (2.0-8.3); Neutrophils Percent Auto 52.1 % (45-73); Platelet Count 195 X10*3/uL (160-400); Red Cell Distribution Width 13.3 % (11.0-16.0)
== END 2022-11-09 07:24 | disposition home or self-care (01) ==
LOC: HO.10HDL 07:23
PROVIDERS: Visit Provider Psychiatry & Neurology Psychiatry
DX: Z79.899 Other long term (current) drug therapy (principal)
CPT/HCPCS: 36415; 85025

== ENCOUNTER 2022-11-24 07:30 | Outpatient (REF) | payer MEDICARE, MEDICAID, SELFPAY ==
[2022-11-24 19:24] LABS: Creatinine Urine 35.65 mg/dL; Microalbum/Creatinine Ratio Ur 30.8 ug/mg cr
[2022-11-24 20:12] LABS: Alanine Aminotransferase 29 U/L (0-40); Albumin Level 4.3 g/dL (3.5-5.0); Alkaline Phosphatase 92 U/L (39-117); Anion Gap 16 (12-20); Aspartate Amino Transferase 18 U/L (5-37); Bilirubin Total 0.3 mg/dL (0.0-1.0); Blood Urea Nitrogen 15 mg/dL (9-16); Calcium 9.8 mg/dL (8.4-10.2); Carbon Dioxide 27 mmol/L (22-29); Chloride 104 mmol/L (96-108); Cholesterol 178 mg/dL; Estimated Glomerular Filt Rate > 60; Glucose Fasting 117 mg/dL (60-99); HDL Cholesterol 49 mg/dL; LDL Cholesterol Calculated 96 mg/dl; Potassium 4.1 mmol/L (3.3-5.1); Sodium 143 mmol/L (135-145); Total Protein 7.6 g/dL (6.5-8.0); Triglycerides 167 mg/dL
[2022-11-24 20:14] LABS: Estimated Average Glucose 134 mg/dL; Hemoglobin A1c % 6.3 %
== END 2022-11-24 07:31 | disposition home or self-care (01) ==
LOC: HO.10HDL 07:30
PROVIDERS: Visit Provider Internal Medicine
DX: E78.5 Hyperlipidemia, unspecified (principal); E11.9 Type 2 diabetes mellitus without complications
CPT/HCPCS: 36415; 80053; 80061; 82043; 83036

== ENCOUNTER 2022-12-15 07:23 | Outpatient (REF) | payer MEDICARE, MEDICAID, SELFPAY ==
[2022-12-15 10:46] LABS: MANUAL DIFF FLAG NO
[2022-12-15 10:50] LABS: Basophils Absolute Auto 0.1 X10*3/uL (0.0-0.2); Basophils Percent Auto 0.7 % (0-2); Eosinophils Absolute Auto 0.8 X10*3/uL (0.0-0.4); Eosinophils Percent Auto 10.2 % (0-4); Hematocrit 42.3 % (42.0-52.0); Hemoglobin 13.7 g/dl (14.0-18.0); Imm Gran Abs Auto 0.02 X10*3/uL (0.00-0.03); Imm Gran Pct Auto 0.2 % (0.0-0.4); Lymphocytes Absolute Auto 2.3 X10*3/uL (1.2-4.9); Lymphocytes Percent Auto 27.8 % (20-40); Mean Corpuscular HGB Conc 32.4 g/dl (31.0-36.0); Mean Corpuscular Hemoglobin 29.1 pg (27.0-33.0); Mean Corpuscular Volume 89.8 fL (80.0-98.0); Mean Platelet Volume 11.1 fL (9.4-12.4); Monocytes Absolute Auto 0.4 X10*3/uL (0.1-1.2); Monocytes Percent Auto 4.9 % (2-11); Neutrophils Absolute Auto 4.6 x10*3/uL (2.0-8.3); Neutrophils Percent Auto 56.2 % (45-73); Platelet Count 195 X10*3/uL (160-400); Red Blood Count 4.71 X10*6/uL (4.60-5.80); Red Cell Distribution Width 13.1 % (11.0-16.0); White Blood Count 8.2 X10*3/uL (4.8-10.8)
[2022-12-15 10:55] LABS: INTERNATIONAL NORM RATIO 0.9 (0.9-1.1); Prothrombin Time 11.3 SEC (11.1-13.3)
== END 2022-12-15 07:24 | disposition home or self-care (01) ==
LOC: HO.10HDL 07:23
PROVIDERS: Psychiatry & Neurology Psychiatry; Visit Provider Internal Medicine
DX: I82.409 Acute embolism and thrombosis of unspecified deep veins of unspecified lower extremity (principal); Z79.899 Other long term (current) drug therapy
CPT/HCPCS: 36415; 85025; 85610

== ENCOUNTER 2023-01-15 07:26 | Outpatient (REF) | payer MEDICARE, MEDICAID, SELFPAY ==
[2023-01-15 10:59] LABS: MANUAL DIFF FLAG NO
[2023-01-15 11:08] LABS: INTERNATIONAL NORM RATIO 0.8 (0.9-1.1); Prothrombin Time 10.3 SEC (11.1-13.3)
[2023-01-15 11:09] LABS: Basophils Absolute Auto 0.1 X10*3/uL (0.0-0.2); Basophils Percent Auto 0.7 % (0-2); Eosinophils Percent Auto 12.4 % (0-4); Hematocrit 40.8 % (42.0-52.0); Hemoglobin 13.3 g/dl (14.0-18.0); Imm Gran Abs Auto 0.03 X10*3/uL (0.00-0.03); Imm Gran Pct Auto 0.4 % (0.0-0.4); Lymphocytes Absolute Auto 2.5 X10*3/uL (1.2-4.9); Mean Corpuscular HGB Conc 32.6 g/dl (31.0-36.0); Mean Corpuscular Hemoglobin 29.1 pg (27.0-33.0); Mean Corpuscular Volume 89.3 fL (80.0-98.0); Mean Platelet Volume 11.3 fL (9.4-12.4); Monocytes Absolute Auto 0.5 X10*3/uL (0.1-1.2); Monocytes Percent Auto 5.8 % (2-11); Neutrophils Absolute Auto 4.2 x10*3/uL (2.0-8.3); Neutrophils Percent Auto 50.7 % (45-73); Platelet Count 192 X10*3/uL (160-400); Red Blood Count 4.57 X10*6/uL (4.60-5.80); Red Cell Distribution Width 13.4 % (11.0-16.0); White Blood Count 8.3 X10*3/uL (4.8-10.8)
== END 2023-01-15 07:27 | disposition home or self-care (01) ==
LOC: HO.10HDL 07:26
PROVIDERS: Absent Provider Psychiatry & Neurology Psychiatry; Visit Provider Internal Medicine
DX: I82.409 Acute embolism and thrombosis of unspecified deep veins of unspecified lower extremity (principal); Z79.899 Other long term (current) drug therapy
CPT/HCPCS: 36415; 85025; 85610

== ENCOUNTER 2023-02-13 07:30 | Outpatient (REF) | payer MEDICARE, MEDICAID, SELFPAY ==
[2023-02-13 10:49] LABS: MANUAL DIFF FLAG NO
[2023-02-13 10:53] LABS: Basophils Absolute Auto 0.1 X10*3/uL (0.0-0.2); Basophils Percent Auto 0.9 % (0-2); Eosinophils Absolute Auto 0.6 X10*3/uL (0.0-0.4); Eosinophils Percent Auto 9.4 % (0-4); Hemoglobin 13.8 g/dl (14.0-18.0); Imm Gran Abs Auto 0.02 X10*3/uL (0.00-0.03); Imm Gran Pct Auto 0.3 % (0.0-0.4); Lymphocytes Absolute Auto 2.2 X10*3/uL (1.2-4.9); Lymphocytes Percent Auto 32.7 % (20-40); Mean Corpuscular HGB Conc 32.9 g/dl (31.0-36.0); Mean Corpuscular Hemoglobin 29.2 pg (27.0-33.0); Mean Corpuscular Volume 88.8 fL (80.0-98.0); Mean Platelet Volume 11.2 fL (9.4-12.4); Monocytes Absolute Auto 0.3 X10*3/uL (0.1-1.2); Monocytes Percent Auto 5.1 % (2-11); Neutrophils Absolute Auto 3.4 x10*3/uL (2.0-8.3); Neutrophils Percent Auto 51.6 % (45-73); Platelet Count 197 X10*3/uL (160-400); Red Blood Count 4.73 X10*6/uL (4.60-5.80); Red Cell Distribution Width 13.2 % (11.0-16.0); White Blood Count 6.6 X10*3/uL (4.8-10.8)
[2023-02-13 11:01] LABS: INTERNATIONAL NORM RATIO 0.9 (0.9-1.1); Prothrombin Time 11.1 SEC (11.1-13.3)
== END 2023-02-13 07:31 | disposition home or self-care (01) ==
LOC: HO.10HDL 07:30
PROVIDERS: Referring Provider Psychiatry & Neurology Psychiatry; Visit Provider Internal Medicine
DX: I82.409 Acute embolism and thrombosis of unspecified deep veins of unspecified lower extremity (principal); Z79.899 Other long term (current) drug therapy
CPT/HCPCS: 36415; 85025; 85610

== ENCOUNTER 2023-03-13 07:21 | Outpatient (REF) | payer MEDICARE, MEDICAID, SELFPAY ==
[2023-03-13 10:32] LABS: MANUAL DIFF FLAG NO
[2023-03-13 10:38] LABS: Basophils Absolute Auto 0.1 X10*3/uL (0.0-0.2); Basophils Percent Auto 0.6 % (0-2); Eosinophils Absolute Auto 0.9 X10*3/uL (0.0-0.4); Eosinophils Percent Auto 8.9 % (0-4); Hematocrit 42.6 % (42.0-52.0); Hemoglobin 14.3 g/dl (14.0-18.0); Imm Gran Abs Auto 0.02 X10*3/uL (0.00-0.03); Imm Gran Pct Auto 0.2 % (0.0-0.4); Lymphocytes Absolute Auto 2.5 X10*3/uL (1.2-4.9); Lymphocytes Percent Auto 23.2 % (20-40); Mean Corpuscular HGB Conc 33.6 g/dl (31.0-36.0); Mean Corpuscular Hemoglobin 29.2 pg (27.0-33.0); Mean Corpuscular Volume 87.1 fL (80.0-98.0); Mean Platelet Volume 10.6 fL (9.4-12.4); Monocytes Absolute Auto 0.5 X10*3/uL (0.1-1.2); Monocytes Percent Auto 4.3 % (2-11); Neutrophils Absolute Auto 6.7 x10*3/uL (2.0-8.3); Neutrophils Percent Auto 62.8 % (45-73); Platelet Count 206 X10*3/uL (160-400); Red Blood Count 4.89 X10*6/uL (4.60-5.80); Red Cell Distribution Width 13.3 % (11.0-16.0); White Blood Count 10.6 X10*3/uL (4.8-10.8)
[2023-03-13 10:48] LABS: Estimated Average Glucose 148 mg/dL; Hemoglobin A1c % 6.8 % (<6.0)
[2023-03-13 10:53] LABS: Alanine Aminotransferase 32 U/L (0-40); Albumin Level 4.4 g/dL (3.5-5.0); Alkaline Phosphatase 98 U/L (39-117); Anion Gap 12 (12-20); Aspartate Amino Transferase 17 U/L (5-37); Bilirubin Total 0.2 mg/dL (0.0-1.0); Blood Urea Nitrogen 16 mg/dL (9-16); Calcium 9.7 mg/dL (8.4-10.2); Carbon Dioxide 31 mmol/L (22-29); Chloride 103 mmol/L (96-108); Estimated Glomerular Filt Rate > 60; Glucose Random 171 mg/dL (60-115); Potassium 3.7 mmol/L (3.3-5.1); Sodium 142 mmol/L (135-145); Total Protein 7.7 g/dL (6.5-8.0)
[2023-03-13 12:04] LABS: Creatinine Urine 37.39 mg/dL
== END 2023-03-13 07:22 | disposition home or self-care (01) ==
LOC: HO.10HDL 07:21
PROVIDERS: Referring Provider Psychiatry & Neurology Psychiatry; Visit Provider Internal Medicine
DX: E11.9 Type 2 diabetes mellitus without complications (principal)
CPT/HCPCS: 36415; 80053; 82043; 82570; 83036; 85025

== ENCOUNTER 2023-04-12 07:20 | Outpatient (REF) | payer MEDICARE, MEDICAID, SELFPAY ==
[2023-04-12 10:48] LABS: MANUAL DIFF FLAG NO
[2023-04-12 10:52] LABS: Basophils Absolute Auto 0.1 X10*3/uL (0.0-0.2); Basophils Percent Auto 1.1 % (0-2); Eosinophils Absolute Auto 0.9 X10*3/uL (0.0-0.4); Hematocrit 40.7 % (42.0-52.0); Hemoglobin 13.6 g/dl (14.0-18.0); Imm Gran Abs Auto 0.02 X10*3/uL (0.00-0.03); Imm Gran Pct Auto 0.3 % (0.0-0.4); Lymphocytes Absolute Auto 2.3 X10*3/uL (1.2-4.9); Lymphocytes Percent Auto 34.8 % (20-40); Mean Corpuscular HGB Conc 33.4 g/dl (31.0-36.0); Mean Corpuscular Hemoglobin 29.2 pg (27.0-33.0); Mean Corpuscular Volume 87.3 fL (80.0-98.0); Mean Platelet Volume 10.7 fL (9.4-12.4); Monocytes Absolute Auto 0.4 X10*3/uL (0.1-1.2); Monocytes Percent Auto 5.6 % (2-11); Neutrophils Percent Auto 45.2 % (45-73); Platelet Count 196 X10*3/uL (160-400); Red Blood Count 4.66 X10*6/uL (4.60-5.80); Red Cell Distribution Width 13.2 % (11.0-16.0); White Blood Count 6.6 X10*3/uL (4.8-10.8)
== END 2023-04-12 07:21 | disposition home or self-care (01) ==
LOC: HO.10HDL 07:20
PROVIDERS: Visit Provider Psychiatry & Neurology Psychiatry
DX: Z79.899 Other long term (current) drug therapy (principal)
CPT/HCPCS: 36415; 85025

== ENCOUNTER 2023-05-15 07:33 | Outpatient (REF) | payer MEDICARE, MEDICAID, SELFPAY ==
[2023-05-15 11:40] LABS: MANUAL DIFF FLAG NO
[2023-05-15 11:53] LABS: Basophils Absolute Auto 0.1 X10*3/uL (0.0-0.2); Basophils Percent Auto 0.9 % (0-2); Eosinophils Absolute Auto 0.9 X10*3/uL (0.0-0.4); Eosinophils Percent Auto 11.4 % (0-4); Hematocrit 41.5 % (42.0-52.0); Hemoglobin 13.7 g/dl (14.0-18.0); Imm Gran Abs Auto 0.03 X10*3/uL (0.00-0.03); Imm Gran Pct Auto 0.4 % (0.0-0.4); Lymphocytes Absolute Auto 1.9 X10*3/uL (1.2-4.9); Lymphocytes Percent Auto 24.9 % (20-40); Mean Corpuscular Hemoglobin 29.2 pg (27.0-33.0); Mean Corpuscular Volume 88.5 fL (80.0-98.0); Mean Platelet Volume 11.6 fL (9.4-12.4); Monocytes Absolute Auto 0.4 X10*3/uL (0.1-1.2); Monocytes Percent Auto 5.7 % (2-11); Neutrophils Absolute Auto 4.4 x10*3/uL (2.0-8.3); Neutrophils Percent Auto 56.7 % (45-73); Platelet Count 183 X10*3/uL (160-400); Red Blood Count 4.69 X10*6/uL (4.60-5.80); Red Cell Distribution Width 13.2 % (11.0-16.0); White Blood Count 7.8 X10*3/uL (4.8-10.8)
== END 2023-05-15 07:34 | disposition home or self-care (01) ==
LOC: HO.10HDL 07:33
PROVIDERS: Visit Provider Psychiatry & Neurology Psychiatry
DX: Z79.899 Other long term (current) drug therapy (principal)
CPT/HCPCS: 36415; 85025

== ENCOUNTER 2023-05-25 14:47 | Outpatient (REF) | payer MEDICARE, MEDICAID, SELFPAY ==
[2023-05-25 16:02] LABS: Anion Gap 14 (12-20); Blood Urea Nitrogen 17 mg/dL (9-16); Calcium 9.9 mg/dL (8.4-10.2); Carbon Dioxide 27 mmol/L (22-29); Chloride 100 mmol/L (96-108); Estimated Glomerular Filt Rate > 60; Glucose Random 320 mg/dL (60-115); Potassium 3.9 mmol/L (3.3-5.1); Sodium 137 mmol/L (135-145)
[2023-05-25 16:03] LABS: Estimated Average Glucose 186 mg/dL; Hemoglobin A1c % 8.1 % (<6.0)
== END 2023-05-25 14:48 | disposition home or self-care (01) ==
LOC: HO.LAB 14:47
PROVIDERS: PCP Internal Medicine; Visit Provider Internal Medicine
DX: I10 Essential (primary) hypertension (principal); E11.9 Type 2 diabetes mellitus without complications
CPT/HCPCS: 36415; 80048; 83036

== ENCOUNTER 2023-06-13 07:32 | Outpatient (REF) | payer MEDICARE, MEDICAID, SELFPAY ==
[2023-06-13 10:34] LABS: MANUAL DIFF FLAG NO
[2023-06-13 10:45] LABS: Basophils Absolute Auto 0.1 X10*3/uL (0.0-0.2); Basophils Percent Auto 0.4 % (0-2); Eosinophils Absolute Auto 0.9 X10*3/uL (0.0-0.4); Eosinophils Percent Auto 7.7 % (0-4); Hematocrit 40.8 % (42.0-52.0); Hemoglobin 13.9 g/dl (14.0-18.0); Imm Gran Abs Auto 0.05 X10*3/uL (0.00-0.03); Imm Gran Pct Auto 0.4 % (0.0-0.4); Lymphocytes Absolute Auto 2.7 X10*3/uL (1.2-4.9); Lymphocytes Percent Auto 22.1 % (20-40); Mean Corpuscular HGB Conc 34.1 g/dl (31.0-36.0); Mean Corpuscular Hemoglobin 29.3 pg (27.0-33.0); Mean Corpuscular Volume 85.9 fL (80.0-98.0); Mean Platelet Volume 11.3 fL (9.4-12.4); Monocytes Absolute Auto 0.6 X10*3/uL (0.1-1.2); Monocytes Percent Auto 4.8 % (2-11); Neutrophils Absolute Auto 7.8 x10*3/uL (2.0-8.3); Neutrophils Percent Auto 64.6 % (45-73); Platelet Count 204 X10*3/uL (160-400); Red Blood Count 4.75 X10*6/uL (4.60-5.80); Red Cell Distribution Width 12.8 % (11.0-16.0); White Blood Count 12.1 X10*3/uL (4.8-10.8)
== END 2023-06-13 07:33 | disposition home or self-care (01) ==
LOC: HO.10HDL 07:32
PROVIDERS: Visit Provider Psychiatry & Neurology Psychiatry
DX: Z79.899 Other long term (current) drug therapy (principal)
CPT/HCPCS: 36415; 85025

== ENCOUNTER 2023-07-02 14:42 | Inpatient (IN) | payer MEDICARE, MEDICAID, SELFPAY ==
[2023-07-02] VITALS (7 sets, daily range): BP systolic 134–155; BP diastolic 82–96; PULSE 75–98; RESP 14–20; TEMP 36.2–36.8; O2SAT 94–98; BMI 24.8
[2023-07-02 15:05] LABS: Glucose, Whole Blood 552 mg/dL (60-115)
[2023-07-02] MEDS: 0.9 % Sodium Chloride 1,000 ML 999 ML IV ×2 (15:11→15:54)
[2023-07-02 15:16] LABS: MANUAL DIFF FLAG NO
[2023-07-02 15:18] LABS: Basophils Percent Auto 0.4 % (0-2); Eosinophils Absolute Auto 0.2 X10*3/uL (0.0-0.4); Eosinophils Percent Auto 2.5 % (0-4); Hemoglobin 13.4 g/dl (14.0-18.0); Imm Gran Abs Auto 0.05 X10*3/uL (0.00-0.03); Imm Gran Pct Auto 0.5 % (0.0-0.4); Lymphocytes Absolute Auto 2.4 X10*3/uL (1.2-4.9); Lymphocytes Percent Auto 25.6 % (20-40); Mean Corpuscular HGB Conc 34.4 g/dl (31.0-36.0); Mean Corpuscular Hemoglobin 29.6 pg (27.0-33.0); Mean Corpuscular Volume 86.3 fL (80.0-98.0); Mean Platelet Volume 11.1 fL (9.4-12.4); Monocytes Absolute Auto 0.5 X10*3/uL (0.1-1.2); Monocytes Percent Auto 5.3 % (2-11); Neutrophils Absolute Auto 6.1 x10*3/uL (2.0-8.3); Neutrophils Percent Auto 65.7 % (45-73); Platelet Count 191 X10*3/uL (160-400); Red Blood Count 4.52 X10*6/uL (4.60-5.80); Red Cell Distribution Width 13.1 % (11.0-16.0); White Blood Count 9.3 X10*3/uL (4.8-10.8)
[2023-07-02 15:21] LABS: Venous Blood Gas Refer to POC result
[2023-07-02 15:22] LABS: VBG Base Excess -0.6 mmol/L; VBG HCO3 24 mmol/L (22-26); VBG pCO2 38 mmHg; VBG pO2 86 mmHg
[2023-07-02 15:31] LABS: Beta-Hydroxybutyrate 2.01 mmol/L (0.02-0.27)
[2023-07-02 15:36] LABS: Alanine Aminotransferase 21 U/L (0-40); Albumin Level 4.1 g/dL (3.5-5.0); Alkaline Phosphatase 119 U/L (39-117); Anion Gap 19 (12-20); Aspartate Amino Transferase 13 U/L (5-37); Bilirubin Direct 0.1 mg/dL (0.0-0.5); Bilirubin Total 0.3 mg/dL (0.0-1.0); Blood Urea Nitrogen 33 mg/dL (9-16); Calcium 9.3 mg/dL (8.4-10.2); Carbon Dioxide 24 mmol/L (22-29); Chloride 99 mmol/L (96-108); Creatinine Clr Calc Pharmacy 51.9; Estimated Glomerular Filt Rate 44; Glucose Random 615 mg/dL (60-115); Magnesium 3.5 mg/dL (1.6-2.6); Potassium 3.8 mmol/L (3.3-5.1); Sodium 138 mmol/L (135-145); Total Protein 7.7 g/dL (6.5-8.0)
--- NOTE | 2023-07-02 15:56 | PC.NURSE ---
IVF administered per provider order. respirations even and unlabored. family bedside for support at this time. plan of care ongoing. call key placed within reach.
[2023-07-02 16:09] LABS: Appearance Urine Clear; Color Urine Yellow; Glucose Urine UA >=1000 mg/dL (Negative); Leukocyte Esterase Urine Negative (Negative); Nitrite Urine Negative (Negative); UMIC TRIGGER UACC YES; Urine Blood Negative (Negative); Urine Ketones Trace mg/dL (Negative); Urine Protein Negative (Neg-Trace)
[2023-07-02 16:15] LABS: Bacteria Urine None Seen (None Seen); Hyaline Casts Urine 0-2 /LPF (0-2); RBC Urine 0-2 /HPF (0-2); Squamous Epithelial Cell Urine 0-2 /HPF (0-2); WBC Urine 0-5 /HPF (0-5)
[2023-07-02 16:17] LABS: Influenza A PCR NEGATIVE (Negative); Influenza B PCR NEGATIVE (Negative); Resp Syncy Virus RNA Qual PCR NEGATIVE (Negative); SARS COV2 PCR INHOUSE NEGATIVE (Negative)
--- NOTE | 2023-07-02 16:28 | ED.GENADULT ---
HPI - General Adult General Chief complaint: Recheck/Abnormal Lab/Rx Stated complaint: HIGH BS PER EMS Time Seen by Provider: 07/02/23 16:28 Source: patient and family Mode of arrival: EMS Limitations: no limitations History of Present Illness HPI narrative: Will 47 years old with schizoaffective disorder diabetic for more than 10 years on metformin recently been having blood sugar elevated in the range of 400 started on Jardiance by his PCP a month ago today blood sugar read high patient denies any changes in diet feels thirsty urinating a lot feel tired and weak slow to respond, no nausea no vomiting blood labs done prior to my arrival shows blood sugar of 615 no ketoacidosis Related Data Home Medications Medication Instructions Recorded Confirmed ascorbic acid (vitamin C) 500 mg 1 tab PO DAILY 03/02/20 07/02/23 tablet (Vitamin C) benztropine 1 mg tablet 1 tab PO BID 03/02/20 07/02/23 cholecalciferol (vitamin D3) 25 1 cap PO DAILY 03/02/20 07/02/23 mcg (1,000 unit) capsule (Vitamin D3) clozapine 100 mg tablet 300 mg PO BEDTIME 03/02/20 07/02/23 clozapine 50 mg tablet 50 mg PO DAILY 03/02/20 07/02/23 fluticasone propionate 50 1 spray intranasal DAILY 03/02/20 07/02/23 mcg/actuation nasal spray,suspension haloperidol 5 mg tablet 2.5 mg PO DAILY 03/02/20 07/02/23 haloperidol 5 mg tablet 5 mg PO BEDTIME 03/02/20 07/02/23 metformin 1,000 mg tablet 1 tab PO BID 03/02/20 07/02/23 multivitamin 1 tab PO DAILY 03/02/20 07/02/23 sertraline 100 mg tablet 1.5 tab PO DAILY 03/02/20 07/02/23 simvastatin 80 mg tablet 1 tab PO DAILY 03/02/20 07/02/23 allopurinol 100 mg tablet 100 mg PO DAILY 06/09/20 07/02/23 ammonium lactate 12 % topical cream 1 appl topical DAILY 07/02/23 07/02/23 apixaban 2.5 mg tablet (Eliquis) 2.5 mg PO BID 07/02/23 07/02/23 clonazepam 1 mg tablet 0.5 mg PO BID 07/02/23 07/02/23 empagliflozin 25 mg tablet 25 mg PO DAILY 07/02/23 07/02/23 (Jardiance) Allergies Allergy/AdvReac Type Severity Reaction Status Date / Time penicillin G Allergy Unknown Unknown Verified 03/03/20 06:07 Penicillins [PENICILLINS] Allergy Unknown Unknown Verified 03/03/20 06:07 Review of Systems Review of Systems: Yes all other systems are reviewed and are negative [facility] Past Medical History Medical History Saddle pulmonary embolus Diabetes insipidus Diabetes mellitus High cholesterol Anxiety PTSD (post-traumatic stress disorder) Schizo affective schizophrenia Social History Social History Household Members: Other Housing: Other Housing Other:: alf/Assisted living Alcohol intake: never Patient Tobacco Use Status: Never used Tobacco Advance Directives Date on File: 04/20/21 service: No Current occupational status: disabled Physical Exam ED Vital Signs: Vital Signs - 24 hr 07/02/23 15:14 07/02/23 17:00 07/02/23 18:23 Temperature 97.8 F 97.5 F 97.8 F Pulse Rate 98 77 88 Respiratory Rate 20 16 16 Blood Pressure 141/90 H 155/95 H 154/90 H Pulse Oximetry 94 98 96 Oxygen Delivery Method Room Air Room Air Room Air 07/02/23 19:15 Temperature 97.9 F Pulse Rate 86 Respiratory Rate 14 Blood Pressure 146/94 H Pulse Oximetry 96 Oxygen Delivery Method Room Air BMI result Body Mass Index 24.8 Appearance: Alert. Oriented X3. No acute distress. Eyes: No pallor or icterus ENT: Pharynx normal. Oral Mucosa dry Neck: Normal inspection. Neck supple. CVS: Normal heart rate and rhythm. Pulses normal. Respiratory: No respiratory distress. Equal air entry bilateral, no wheezing/rales/rhonchi Abdomen: Soft and nontender. Bowel sounds are present, no mass palpable, no CVA tenderness Skin: Skin warm and dry. Normal skin color. Normal skin turgor. Extremities: No lower extremity edema. No calf tenderness Neuro: Oriented X 3. No motor deficit. Medications Administered Generic Name Dose Route Start Last Admin Trade Name Freq PRN Reason Stop Dose Admin Apixaban 5 mg 07/02/23 21:00 07/02/23 20:59 Apixaban 5 Mg Tablet PO 5 mg BID RUBEN Administration Benztropine Mesylate 1 mg 07/02/23 21:00 07/02/23 20:59 Benztropine Mesylate 1 Mg Tablet PO 1 mg BID RUBEN Administration Clonazepam 0.5 mg 07/02/23 21:00 07/02/23 20:59 Clonazepam 0.5 Mg Tablet PO 0.5 mg BID RUBEN Administration Clozapine 300 mg 07/02/23 21:00 07/02/23 20:59 Clozapine 100 Mg Tablet PO 300 mg BEDTIME RUBEN Administration Haloperidol 5 mg 07/02/23 21:00 07/02/23 20:59 Haloperidol 5 Mg Tablet PO 5 mg BEDTIME RUBEN Administration Lactated Ringer's 1,000 mls @ 150 mls/hr 07/02/23 19:36 07/02/23 20:51 Lr IVCONT 07/03/23 02:15 150 mls/hr .Q6H40M ONE Administration Insulin Human Lispro 0 unit 07/02/23 21:00 07/02/23 21:02 Insulin Lispro 100 Unit/Ml 3 Ml Vial SUBCUT Not Given QIDACHS [facility] Protocol Metformin HCl 1,000 mg 07/02/23 21:00 07/02/23 20:59 Metformin Hcl 1,000 Mg Tablet PO 1,000 mg BID RUBEN Administration Sodium Chloride 3 ml 07/03/23 00:00 07/03/23 00:04 0.9 % Sodium Chloride Flush 3 Ml Syringe IVFLUSH Not Given QSHIFT [facility] Discontinued Medications Generic Name Dose Route Start Last Admin Trade Name Slimq PRN Reason Stop Dose Admin Sodium Chloride 1,000 mls @ 999 mls/hr 07/02/23 15:15 07/02/23 16:12 Ns IV 07/02/23 16:15 Infused .Q1H1M RUBEN Infusion Sodium Chloride 1,000 mls @ 999 mls/hr 07/02/23 15:45 07/02/23 17:01 Ns IV 07/02/23 16:45 Infused .Q1H1M RUBEN Infusion Insulin Glargine 20 unit 07/02/23 17:05 07/02/23 17:27 Insulin Glargine,Hum.Rec.Anlog 100 Unit/Ml 10 Ml Vial SUBCUT 07/02/23 17:06 20 unit ONCE ONE Administration Insulin Human Lispro 14 unit 07/02/23 16:29 07/02/23 17:01 Insulin Lispro 100 Unit/Ml 3 Ml Vial SUBCUT 07/02/23 16:30 14 unit ONCE ONE Administration Medical Decision Making Medical Decision Making [facility] Narrative: Patient hyperglycemic and failed oral hypoglycemic treatment on metformin with CJ creatinine of 1.6 patient needs to be on insulin will start patient on Lantus 20 units recheck creatinine which has improved will admit patient for CJ with hyperglycemia patient's blood sugar improved during stay in the ER to 286 now Differential Diagnosis Differential Diagnoses: The differential diagnosis associated with the presentation includes DKA/hyperglycemia/UTI/dehydration Lab Data [facility] Lab Attestation statement: I reviewed the patient's lab results. 07/02/23 15:10 07/02/23 18:33 Labs: Lab Results 07/02/23 07/02/23 07/02/23 Range/Units 15:01 15:10 15:16 WBC 9.3 (4.8-10.8) X10*3/uL RBC 4.52 L (4.60-5.80) X10*6/uL Hgb 13.4 L (14.0-18.0) g/dl Hct 39.0 L (42.0-52.0) % MCV 86.3 (80.0-98.0) fL MCH 29.6 (27.0-33.0) pg MCHC 34.4 (31.0-36.0) g/dl RDW 13.1 (11.0-16.0) % Plt Count 191 (160-400) X10*3/uL MPV 11.1 (9.4-12.4) fL Immature Gran % (Auto) 0.5 H (0.0-0.4) % Neut % (Auto) 65.7 (45-73) % Lymph % (Auto) 25.6 (20-40) % [place] % (Auto) 5.3 (2-11) % Eos % (Auto) 2.5 (0-4) % Baso % (Auto) 0.4 (0-2) % Lymph # (Auto) 2.4 (1.2-4.9) X10*3/uL [place] # (Auto) 0.5 (0.1-1.2) X10*3/uL Eos # (Auto) 0.2 (0.0-0.4) X10*3/uL Baso # (Auto) 0.0 (0.0-0.2) X10*3/uL Abs Immat Gran (auto) 0.05 H (0.00-0.03) X10*3/uL Absolute Neuts (auto) 6.1 (2.0-8.3) x10*3/uL Absolute Nucleated RBC 0.000 (0.0-0.012) X10*3/uL Nucleated RBC % (auto) 0.0 (0.0-0.2) /100WBC VBG pH 7.40 (7.32-7.43) VBG pCO2 38 mmHg VBG pO2 86 mmHg VBG HCO3 24 (22-26) mmol/L VBG O2 Saturation 96.0 % VBG Base Excess -0.6 mmol/L Sodium 138 (135-145) mmol/L Potassium 3.8 (3.3-5.1) mmol/L Chloride 99 (96-108) mmol/L Carbon Dioxide 24 (22-29) mmol/L Anion Gap 19 (12-20) BUN 33 H (9-16) mg/dL Creatinine 1.68 H (0.5-1.4) mg/dL Estim Creat Clear Calc 51.9 Estimated GFR 44 POC Glucose 552 H* (60-115) mg/dL Random Glucose 615 H* (60-115) mg/dL Calcium 9.3 D (8.4-10.2) mg/dL Magnesium 3.5 H* (1.6-2.6) mg/dL Total Bilirubin 0.3 (0.0-1.0) mg/dL Direct Bilirubin 0.1 (0.0-0.5) mg/dL AST 13 (5-37) U/L ALT 21 (0-40) U/L Alkaline Phosphatase 119 H (39-117) U/L Total Protein 7.7 (6.5-8.0) g/dL Albumin 4.1 (3.5-5.0) g/dL Beta-Hydroxybutyrate 2.01 H (0.02-0.27) mmol/L Urine Color Urine Appearance Urine pH (5.0-9.0) Ur Specific [place] (1.005-1.025) Urine Protein (Neg-Trace) mg/dL Urine Glucose (UA) (Negative) mg/dL Urine Ketones (Negative) mg/dL Urine Blood (Negative) Urine Nitrite (Negative) Ur Leukocyte Esterase (Negative) Urine RBC (0-2) /HPF Urine WBC (0-5) /HPF Ur Squamous Epith Cells (0-2) /HPF Urine Bacteria (None Seen) Hyaline Casts (0-2) /LPF Influenza Type A (PCR) (Negative) Influenza Type B (PCR) (Negative) RSV RNA Qual (PCR) (Negative) SARS-CoV-2 RNA (RT-PCR) (Negative) 07/02/23 07/02/23 07/02/23 Range/Units 15:22 15:47 17:25 WBC (4.8-10.8) X10*3/uL RBC (4.60-5.80) X10*6/uL Hgb (14.0-18.0) g/dl Hct (42.0-52.0) % MCV (80.0-98.0) fL MCH (27.0-33.0) pg MCHC (31.0-36.0) g/dl RDW (11.0-16.0) % Plt Count (160-400) X10*3/uL MPV (9.4-12.4) fL Immature Gran % (Auto) (0.0-0.4) % Neut % (Auto) (45-73) % Lymph % (Auto) (20-40) % [place] % (Auto) (2-11) % Eos % (Auto) (0-4) % Baso % (Auto) (0-2) % Lymph # (Auto) (1.2-4.9) X10*3/uL [place] # (Auto) (0.1-1.2) X10*3/uL Eos # (Auto) (0.0-0.4) X10*3/uL Baso # (Auto) (0.0-0.2) X10*3/uL Abs Immat Gran (auto) (0.00-0.03) X10*3/uL Absolute Neuts (auto) (2.0-8.3) x10*3/uL Absolute Nucleated RBC (0.0-0.012) X10*3/uL Nucleated RBC % (auto) (0.0-0.2) /100WBC VBG pH (7.32-7.43) VBG pCO2 mmHg VBG pO2 mmHg VBG HCO3 (22-26) mmol/L VBG O2 Saturation % VBG Base Excess mmol/L Sodium (135-145) mmol/L Potassium (3.3-5.1) mmol/L Chloride (96-108) mmol/L Carbon Dioxide (22-29) mmol/L Anion Gap (12-20) BUN (9-16) mg/dL Creatinine (0.5-1.4) mg/dL Estim Creat Clear Calc Estimated GFR POC Glucose 350 H* (60-115) mg/dL Random Glucose (60-115) mg/dL Calcium (8.4-10.2) mg/dL Magnesium (1.6-2.6) mg/dL Total Bilirubin (0.0-1.0) mg/dL Direct Bilirubin (0.0-0.5) mg/dL AST (5-37) U/L ALT (0-40) U/L Alkaline Phosphatase (39-117) U/L Total Protein (6.5-8.0) g/dL Albumin (3.5-5.0) g/dL Beta-Hydroxybutyrate (0.02-0.27) mmol/L Urine Color Yellow Urine Appearance Clear Urine pH 5.0 (5.0-9.0) Ur Specific [place] 1.020 (1.005-1.025) Urine Protein Negative (Neg-Trace) mg/dL Urine Glucose (UA) >=1000 H (Negative) mg/dL Urine Ketones Trace (Negative) mg/dL Urine Blood Negative (Negative) Urine Nitrite Negative (Negative) Ur Leukocyte Esterase Negative (Negative) Urine RBC 0-2 (0-2) /HPF Urine WBC 0-5 (0-5) /HPF Ur Squamous Epith Cells 0-2 (0-2) /HPF Urine Bacteria None Seen (None Seen) Hyaline Casts 0-2 (0-2) /LPF Influenza Type A (PCR) NEGATIVE (Negative) Influenza Type B (PCR) NEGATIVE (Negative) RSV RNA Qual (PCR) NEGATIVE (Negative) SARS-CoV-2 RNA (RT-PCR) NEGATIVE (Negative) 07/02/23 07/02/23 07/02/23 Range/Units 17:44 18:31 18:33 WBC (4.8-10.8) X10*3/uL RBC (4.60-5.80) X10*6/uL Hgb (14.0-18.0) g/dl Hct (42.0-52.0) % MCV (80.0-98.0) fL MCH (27.0-33.0) pg MCHC (31.0-36.0) g/dl RDW (11.0-16.0) % Plt Count (160-400) X10*3/uL MPV (9.4-12.4) fL Immature Gran % (Auto) (0.0-0.4) % Neut % (Auto) (45-73) % Lymph % (Auto) (20-40) % [place] % (Auto) (2-11) % Eos % (Auto) (0-4) % Baso % (Auto) (0-2) % Lymph # (Auto) (1.2-4.9) X10*3/uL [place] # (Auto) (0.1-1.2) X10*3/uL Eos # (Auto) (0.0-0.4) X10*3/uL Baso # (Auto) (0.0-0.2) X10*3/uL Abs Immat Gran (auto) (0.00-0.03) X10*3/uL Absolute Neuts (auto) (2.0-8.3) x10*3/uL Absolute Nucleated RBC (0.0-0.012) X10*3/uL Nucleated RBC % (auto) (0.0-0.2) /100WBC VBG pH (7.32-7.43) VBG pCO2 mmHg VBG pO2 mmHg VBG HCO3 (22-26) mmol/L VBG O2 Saturation % VBG Base Excess mmol/L Sodium 149 H (135-145) mmol/L Potassium 3.5 (3.3-5.1) mmol/L Chloride 114 H (96-108) mmol/L Carbon Dioxide 24 (22-29) mmol/L Anion Gap 15 (12-20) BUN 29 H (9-16) mg/dL Creatinine 1.47 H (0.5-1.4) mg/dL Estim Creat Clear Calc 59.3 Estimated GFR 52 POC Glucose 318 H 285 H (60-115) mg/dL Random Glucose 286 H (60-115) mg/dL Calcium 8.6 D (8.4-10.2) mg/dL Magnesium (1.6-2.6) mg/dL Total Bilirubin (0.0-1.0) mg/dL Direct Bilirubin (0.0-0.5) mg/dL AST (5-37) U/L ALT (0-40) U/L Alkaline Phosphatase (39-117) U/L Total Protein (6.5-8.0) g/dL Albumin (3.5-5.0) g/dL Beta-Hydroxybutyrate (0.02-0.27) mmol/L Urine Color Urine Appearance Urine pH (5.0-9.0) Ur Specific [place] (1.005-1.025) Urine Protein (Neg-Trace) mg/dL Urine Glucose (UA) (Negative) mg/dL Urine Ketones (Negative) mg/dL Urine Blood (Negative) Urine Nitrite (Negative) Ur Leukocyte Esterase (Negative) Urine RBC (0-2) /HPF Urine WBC (0-5) /HPF Ur Squamous Epith Cells (0-2) /HPF Urine Bacteria (None Seen) Hyaline Casts (0-2) /LPF Influenza Type A (PCR) (Negative) Influenza Type B (PCR) (Negative) RSV RNA Qual (PCR) (Negative) SARS-CoV-2 RNA (RT-PCR) (Negative) Discharge Plan Discharge Clinical Impression: Uncontrolled diabetes mellitus with hyperglycemia, Acute kidney injury Patient Disposition: Admitted As Inpatient Interventions: Admission Worksheet (ED) Last Done: 07/02/23 21:07 Discharge Date/Time: 07/02/23 22:51
[2023-07-02] MEDS: Insulin Lispro 100 UNIT/ML 3 ML VIAL 14 UNIT SUBCUT (17:01)
--- NOTE | 2023-07-02 17:03 | PC.NURSE ---
insulin administered per provider order. effectiveness pending.
[2023-07-02] MEDS: Insulin Glargine,Hum.rec.anlog 100 UNIT/ML 10 ML VIAL 20 UNIT SUBCUT (17:27)
--- NOTE | 2023-07-02 17:29 | PC.NURSE ---
repeat POC obtained/displaying 350mg/dL. more insulin administered per provider order. effectiveness pending.
[2023-07-02 17:30] LABS: Glucose, Whole Blood 350 mg/dL (60-115)
[2023-07-02 17:48] LABS: Glucose, Whole Blood 318 mg/dL (60-115)
[2023-07-02 18:36] LABS: Glucose, Whole Blood 285 mg/dL (60-115)
[2023-07-02 18:51] LABS: Anion Gap 15 (12-20); Blood Urea Nitrogen 29 mg/dL (9-16); Calcium 8.6 mg/dL (8.4-10.2); Carbon Dioxide 24 mmol/L (22-29); Chloride 114 mmol/L (96-108); Creatinine Clr Calc Pharmacy 59.3; Estimated Glomerular Filt Rate 52; Glucose Random 286 mg/dL (60-115); Potassium 3.5 mmol/L (3.3-5.1); Sodium 149 mmol/L (135-145)
--- NOTE | 2023-07-02 19:29 | P.HPHOSP_ITS ---
History of Present Illness Date of Service: 07/02/23 Chief Complaint: Elevated blood sugar This is a 47-year-old male with pertinent history of PE on Eliquis, iyv-uxruhoh-dlpwsgced diabetes mellitus, mood disorder, mixed hyperlipidemia who presents to the emergency department for evaluated of elevated blood sugars. His blood sugar was found to be 600 at home and he presented to the ER. Patient does report polydipsia and polyuria that has been ongoing for a while. He is compliant with his home metformin. Recently about a month ago Jardiance was added to metformin by his PCP. Patient states his sugars have remained uncontrolled. He has never used insulin in the past. No fever, chills, chest discomfort, palpitations, shortness of breath, abdominal pain, changes in bowel habits. The emergency department, blood sugar found to be in the 600s and serum creatinine found to be elevated. Review of Systems 2 Constitutional: Constitutional: Reports lethargy, Reports malaise and Reports weakness Cardiovascular: Cardiovascular: Reports no additional cardiovascular complaints Respiratory: Respiratory: Reports no additional respiratory complaints Gastrointestinal: Gastrointestinal: Reports no additional gastrointestinal complaints Genitourinary: Genitourinary: Reports no additional male genitourinary complaints Neurologic: Reports weakness Endocrine: Endocrine: Reports polydipsia and Reports polyuria [facility] Medical History Saddle pulmonary embolus Diabetes insipidus Diabetes mellitus High cholesterol Anxiety PTSD (post-traumatic stress disorder) Schizo affective schizophrenia Pertinent family history: No family history of early CAD Social History Household Members: Other Housing: Other Housing Other:: alf/Assisted living Alcohol intake: never Smoked in Last 30 Days: No Use of substances other than those prescribed or required for medical reasons: No Advance Directives: Yes Advance Directives on File: Yes Advance Directives Date on File: 04/20/21 service: No Current occupational status: disabled Meds Allergies Allergy/AdvReac Type Severity Reaction Status Date / Time penicillin G Allergy Unknown Unknown Verified 03/03/20 06:07 Penicillins [PENICILLINS] Allergy Unknown Unknown Verified 03/03/20 06:07 Home Medications Medication Instructions Recorded Confirmed Last Taken Type ascorbic acid (vitamin C) 500 mg 1 tab PO DAILY 03/02/20 07/02/23 Unknown History tablet (Vitamin C) benztropine 1 mg tablet 1 tab PO BID 03/02/20 07/02/23 Unknown History cholecalciferol (vitamin D3) 25 1 cap PO DAILY 03/02/20 07/02/23 Unknown History mcg (1,000 unit) capsule (Vitamin D3) clozapine 100 mg tablet 300 mg PO BEDTIME 03/02/20 07/02/23 07/01/23 History clozapine 50 mg tablet 50 mg PO DAILY 03/02/20 07/02/23 07/02/23 History fluticasone propionate 50 1 spray intranasal DAILY 03/02/20 07/02/23 Unknown History mcg/actuation nasal spray,suspension haloperidol 5 mg tablet 2.5 mg PO DAILY 03/02/20 07/02/23 Unknown History haloperidol 5 mg tablet 5 mg PO BEDTIME 03/02/20 07/02/23 Unknown History metformin 1,000 mg tablet 1 tab PO BID 03/02/20 07/02/23 Unknown History multivitamin 1 tab PO DAILY 03/02/20 07/02/23 Unknown History sertraline 100 mg tablet 1.5 tab PO DAILY 03/02/20 07/02/23 Unknown History simvastatin 80 mg tablet 1 tab PO DAILY 03/02/20 07/02/23 Unknown History allopurinol 100 mg tablet 100 mg PO DAILY 06/09/20 07/02/23 Unknown History ammonium lactate 12 % topical cream 1 appl topical DAILY 07/02/23 07/02/23 Unknown History apixaban 2.5 mg tablet (Eliquis) 2.5 mg PO BID 07/02/23 07/02/23 Unknown History clonazepam 1 mg tablet 0.5 mg PO BID 07/02/23 07/02/23 Unknown History empagliflozin 25 mg tablet 25 mg PO DAILY 07/02/23 07/02/23 Unknown History (Jardiance) Physical Exam 2 Vital Signs and Narrative: Vital Signs: Last Vital Signs Temp 97.9 F 07/02/23 19:15 Pulse 86 07/02/23 19:15 Resp 14 07/02/23 19:15 BP 146/94 H 07/02/23 19:15 Pulse Ox 96 07/02/23 19:15 O2 Del Method Room Air 07/02/23 19:15 BMI result Body Mass Index 24.8 Middle-aged male lying in bed in no distress Neck supple, no JVD, dry mucous membranes Regular rate and rhythm, S1-S2 heard Regular breath sounds bilaterally, no wheezing or crackles appreciated Abdomen soft nontender, no guarding, no rigidity Patient is awake, alert and oriented to self, place, time and person ; no focal motor deficit Psych: Normal mood No pedal edema Results Labs 07/02/23 15:10 07/02/23 18:33 Labs: Laboratory Results - last 24 hr 07/02/23 07/02/23 07/02/23 15:01 15:10 15:16 MCV 86.3 MCH 29.6 MCHC 34.4 RDW 13.1 Plt Count 191 MPV 11.1 Immature Gran % (Auto) 0.5 H Neut % (Auto) 65.7 Lymph % (Auto) 25.6 [place] % (Auto) 5.3 Eos % (Auto) 2.5 Baso % (Auto) 0.4 Lymph # (Auto) 2.4 [place] # (Auto) 0.5 Eos # (Auto) 0.2 Baso # (Auto) 0.0 Abs Immat Gran (auto) 0.05 H Absolute Neuts (auto) 6.1 Absolute Nucleated RBC 0.000 Nucleated RBC % (auto) 0.0 VBG pH 7.40 VBG pCO2 38 VBG pO2 86 VBG HCO3 24 VBG O2 Saturation 96.0 VBG Base Excess -0.6 Anion Gap 19 Estim Creat Clear Calc 51.9 Estimated GFR 44 POC Glucose 552 H* Random Glucose 615 H* Calcium 9.3 D Magnesium 3.5 H* Total Bilirubin 0.3 Direct Bilirubin 0.1 AST 13 ALT 21 Alkaline Phosphatase 119 H Total Protein 7.7 Albumin 4.1 Beta-Hydroxybutyrate 2.01 H Urine Color Urine Appearance Urine pH Ur Specific [place] Urine Protein Urine Glucose (UA) Urine Ketones Urine Blood Urine Nitrite Ur Leukocyte Esterase Urine RBC Urine WBC Ur Squamous Epith Cells Urine Bacteria Hyaline Casts Influenza Type A (PCR) Influenza Type B (PCR) RSV RNA Qual (PCR) SARS-CoV-2 RNA (RT-PCR) 07/02/23 07/02/23 07/02/23 15:22 15:47 17:25 MCV MCH MCHC RDW Plt Count MPV Immature Gran % (Auto) Neut % (Auto) Lymph % (Auto) [place] % (Auto) Eos % (Auto) Baso % (Auto) Lymph # (Auto) [place] # (Auto) Eos # (Auto) Baso # (Auto) Abs Immat Gran (auto) Absolute Neuts (auto) Absolute Nucleated RBC Nucleated RBC % (auto) VBG pH VBG pCO2 VBG pO2 VBG HCO3 VBG O2 Saturation VBG Base Excess Anion Gap Estim Creat Clear Calc Estimated GFR POC Glucose 350 H* Random Glucose Calcium Magnesium Total Bilirubin Direct Bilirubin AST ALT Alkaline Phosphatase Total Protein Albumin Beta-Hydroxybutyrate Urine Color Yellow Urine Appearance Clear Urine pH 5.0 Ur Specific [place] 1.020 Urine Protein Negative Urine Glucose (UA) >=1000 H Urine Ketones Trace Urine Blood Negative Urine Nitrite Negative Ur Leukocyte Esterase Negative Urine RBC 0-2 Urine WBC 0-5 Ur Squamous Epith Cells 0-2 Urine Bacteria None Seen Hyaline Casts 0-2 Influenza Type A (PCR) NEGATIVE Influenza Type B (PCR) NEGATIVE RSV RNA Qual (PCR) NEGATIVE SARS-CoV-2 RNA (RT-PCR) NEGATIVE 07/02/23 07/02/23 07/02/23 17:44 18:31 18:33 MCV MCH MCHC RDW Plt Count MPV Immature Gran % (Auto) Neut % (Auto) Lymph % (Auto) [place] % (Auto) Eos % (Auto) Baso % (Auto) Lymph # (Auto) [place] # (Auto) Eos # (Auto) Baso # (Auto) Abs Immat Gran (auto) Absolute Neuts (auto) Absolute Nucleated RBC Nucleated RBC % (auto) VBG pH VBG pCO2 VBG pO2 VBG HCO3 VBG O2 Saturation VBG Base Excess Anion Gap 15 Estim Creat Clear Calc 59.3 Estimated GFR 52 POC Glucose 318 H 285 H Random Glucose 286 H Calcium 8.6 D Magnesium Total Bilirubin Direct Bilirubin AST ALT Alkaline Phosphatase Total Protein Albumin Beta-Hydroxybutyrate Urine Color Urine Appearance Urine pH Ur Specific [place] Urine Protein Urine Glucose (UA) Urine Ketones Urine Blood Urine Nitrite Ur Leukocyte Esterase Urine RBC Urine WBC Ur Squamous Epith Cells Urine Bacteria Hyaline Casts Influenza Type A (PCR) Influenza Type B (PCR) RSV RNA Qual (PCR) SARS-CoV-2 RNA (RT-PCR) Assessment and Plan (1) Uncontrolled diabetes mellitus with hyperglycemia: Status: Acute (2) Acute kidney injury: Status: Acute Plan This is a 47-year-old male with pertinent history of PE on Eliquis, uqy-fhanijr-bzvcxywes diabetes mellitus, mood disorder, mixed hyperlipidemia who presents to the emergency department for evaluated of elevated blood sugars. #. Uncontrolled diabetes mellitus with hyperglycemia: Initiating basal plus insulin regimen. Resuscitated with IV crystalloids. Obtain A1c. Diabetes education. Optimize antihyperglycemics prior to discharge #. Acute kidney injury, likely prerenal stage I: Resuscitated with IV crystalloids. Monitor creatinine urine output. Avoid nephrotoxins. #. Mood disorder: Continue home mood stabilizers #. History of PE: On Eliquis #. Mixed hyperlipidemia: On statin DVT prophylaxis: Eliquis Full code Admit as inpatient and will require two night minimum hospital stay for close monitoring of kidney function, titration of insulin regimen and close monitoring of blood sugars (as above), which is not possible in a lesser acute setting. Quality Stroke Does the patient have a stroke diagnosis?: No VTE Prior VTE?: No VTE Risk Level:: Medical - moderate - high VTE Device Contraindication: Treatment Not Indicated VTE Drug Contraindication: N/A - Med Ordered
--- NOTE | 2023-07-02 19:52 | PHA.MEDREC ---
Pharmacy Consult ? Medication Reconciliation Pharmacy has completed the medication reconciliation. Patient and patient's mom confirmed medications. Reported patient's RN gave patient meds this morning. Claudia Wynn, [facility]
[2023-07-02] MEDS: Lactated Ringers 1,000 ML 150 ML IVCONT (20:51)
[2023-07-02 20:52] LABS: Glucose, Whole Blood 140 mg/dL (60-115)
[2023-07-02] MEDS: metFORMIN HCl 1,000 MG TABLET 1000 MG PO (20:59)
[2023-07-02] MEDS: HaloperidoL 5 MG TABLET PO (20:59)
[2023-07-02] MEDS: cloZAPine 100 MG TABLET 300 MG PO (20:59)
[2023-07-02] MEDS: Apixaban 5 MG TABLET PO (20:59)
[2023-07-02] MEDS: clonazePAM 0.5 MG TABLET PO (20:59)
[2023-07-02] MEDS: Benztropine Mesylate 1 MG TABLET PO (20:59)
--- NOTE | 2023-07-02 21:16 | PC.NURSE ---
This information writer assumed care of this Pt at 1900. Pt A&O to self, place and month. Pt denies any pain. Pt ambulated to BR independent with steady gait. Pt medicated per JUN. Report complete, Pt will be transported to room 364. Pt aware of plan.
[2023-07-03 02:58] VITALS: BP 134/83; PULSE 71; RESP 17; TEMP 36.4; O2SAT 95
[2023-07-03 06:57] LABS: MANUAL DIFF FLAG NO
[2023-07-03 07:06] LABS: Basophils Percent Auto 0.5 % (0-2); Eosinophils Absolute Auto 0.5 X10*3/uL (0.0-0.4); Eosinophils Percent Auto 6.6 % (0-4); Hematocrit 36.1 % (42.0-52.0); Imm Gran Abs Auto 0.03 X10*3/uL (0.00-0.03); Imm Gran Pct Auto 0.4 % (0.0-0.4); Lymphocytes Absolute Auto 2.8 X10*3/uL (1.2-4.9); Lymphocytes Percent Auto 38.4 % (20-40); Mean Corpuscular HGB Conc 33.2 g/dl (31.0-36.0); Mean Corpuscular Hemoglobin 29.1 pg (27.0-33.0); Mean Corpuscular Volume 87.4 fL (80.0-98.0); Mean Platelet Volume 11.6 fL (9.4-12.4); Monocytes Absolute Auto 0.4 X10*3/uL (0.1-1.2); Monocytes Percent Auto 5.2 % (2-11); Neutrophils Absolute Auto 3.6 x10*3/uL (2.0-8.3); Neutrophils Percent Auto 48.9 % (45-73); Platelet Count 171 X10*3/uL (160-400); Red Blood Count 4.13 X10*6/uL (4.60-5.80); Red Cell Distribution Width 13.2 % (11.0-16.0); White Blood Count 7.3 X10*3/uL (4.8-10.8)
[2023-07-03 07:10] VITALS: BP 159/93; PULSE 76; RESP 16; TEMP 36.1; O2SAT 96
[2023-07-03 07:19] LABS: Glucose, Whole Blood 147 mg/dL (60-115)
[2023-07-03 07:22] LABS: Anion Gap 13 (12-20); Blood Urea Nitrogen 18 mg/dL (9-16); Calcium 8.9 mg/dL (8.4-10.2); Carbon Dioxide 27 mmol/L (22-29); Chloride 112 mmol/L (96-108); Creatinine Clr Calc Pharmacy 75.8; Estimated Glomerular Filt Rate > 60; Glucose Random 158 mg/dL (60-115); Potassium 3.4 mmol/L (3.3-5.1); Sodium 149 mmol/L (135-145)
[2023-07-03] MEDS: allopurinoL 100 MG TABLET PO (08:58)
[2023-07-03] MEDS: cloZAPine 25 MG TABLET 50 MG PO (08:58)
[2023-07-03] MEDS: Ascorbic Acid 500 MG TABLET PO (08:58)
[2023-07-03] MEDS: Multivitamin TABLET 1 TAB PO (08:59)
[2023-07-03] MEDS: Benztropine Mesylate 1 MG TABLET PO ×2 (08:59→20:05)
[2023-07-03] MEDS: Empagliflozin 25 MG TABLET PO (08:59)
[2023-07-03] MEDS: clonazePAM 0.5 MG TABLET PO ×2 (08:59→20:05)
[2023-07-03] MEDS: Cholecalciferol (Vitamin D3) 25 MCG TABLET PO (08:59)
[2023-07-03] MEDS: HaloperidoL 5 MG TABLET 2.5 MG PO (08:59)
[2023-07-03] MEDS: metFORMIN HCl 1,000 MG TABLET 1000 MG PO ×2 (08:59→20:05)
[2023-07-03] MEDS: Apixaban 5 MG TABLET PO ×2 (08:59→20:05)
[2023-07-03] MEDS: Sertraline HCL 50 MG TABLET 150 MG PO (08:59)
[2023-07-03] MEDS: Atorvastatin Calcium 40 MG TABLET PO (08:59)
[2023-07-03] MEDS: 0.9 % Sodium Chloride Flush 3 ML SYRINGE IVFLUSH ×2 (09:05→20:05)
[2023-07-03 09:33] LABS: Estimated Average Glucose 258 mg/dL; Hemoglobin A1c % 10.6 % (<6.0)
--- NOTE | 2023-07-03 09:41 | MHC.CM.PN ---
IMM DELIVERED, EXPLAINED TO PT AT BEDSIDE AND AGAIN TO MOTHER VIA TELEPHONE. WHITE COPY LEFT AT BEDSIDE. PT DEFERS QUESTIONS TO MOTHER SUSANNE ([phone]) PT LIVES IN A [place]AIL SITUATION. PT ACTIVE WITH [facility] FOR DAILY MEDICATION ADMINISTRATION. PT FUNCTIONALLY INDEP. +GUARDIANSHIP/ MOTHER WILL BRING IN COPY. PCP DR. RYAN DP: RETURN TO JAIL WITH RESUMPTION OF [facility] SERVICES. PT HAS TRANSPORT HOME VIA MOTHER OR [facility]. CM WILL CONTINUE TO FOLLOW FOR ANY CHANGE IN DC PLAN/NEEDS.
[2023-07-03 11:16] LABS: Glucose, Whole Blood 358 mg/dL (60-115)
[2023-07-03] MEDS: Insulin Lispro 100 UNIT/ML 3 ML VIAL SUBCUT ×4 (11:23→20:04)
--- NOTE | 2023-07-03 11:25 | HO.PM.IMPN ---
Subjective Subjective Date of Service: 07/03/23 Interval History: f/u on hyperglycemia, JC Blood sugar is better, renal function is back to normal sodium level is high Physical Exam Vital Signs: Vital Signs: Last Vital Signs Temp 96.9 F 07/03/23 07:10 Pulse 76 07/03/23 07:10 Resp 16 07/03/23 07:10 BP 159/93 H 07/03/23 07:10 Pulse Ox 96 07/03/23 07:10 O2 Del Method Room Air 07/03/23 07:10 BMI result Body Mass Index 24.8 General: AO X 3, no acute distress Resp: CTA bilateral CVS: S1,S2,RRR GI: +BS, NT, no distention Skin: No rash Neuro: motor grossly intact Psych: appropriate affect Objective Data Active Medications Acetaminophen (Acetaminophen 325 Mg Tablet) 650 mg PO Q6H PRN PRN Reason: Pain, Mild (Pain Scale 1-3) Allopurinol (Allopurinol 100 Mg Tablet) 100 mg PO DAILY [facility] Last Admin: 07/03/23 08:58 Dose: 100 mg Documented By: BERNY Apixaban (Apixaban 5 Mg Tablet) 5 mg PO BID [facility] Last Admin: 07/03/23 08:59 Dose: 5 mg Documented By: BERNY Ascorbic Acid (Ascorbic Acid 500 Mg Tablet) 500 mg PO DAILY [facility] Last Admin: 07/03/23 08:58 Dose: 500 mg Documented By: BERNY Atorvastatin Calcium (Atorvastatin Calcium 40 Mg Tablet) 40 mg PO DAILY [facility] Last Admin: 07/03/23 08:59 Dose: 40 mg Documented By: BERNY Benztropine Mesylate (Benztropine Mesylate 1 Mg Tablet) 1 mg PO BID [facility] Last Admin: 07/03/23 08:59 Dose: 1 mg Documented By: BERNY Clonazepam (Clonazepam 0.5 Mg Tablet) 0.5 mg PO BID [facility] Last Admin: 07/03/23 08:59 Dose: 0.5 mg Documented By: BERNY Clozapine (Clozapine 25 Mg Tablet) 50 mg PO DAILY [facility] Last Admin: 07/03/23 08:58 Dose: 50 mg Documented By: BERNY Clozapine (Clozapine 100 Mg Tablet) 300 mg PO BEDTIME [facility] Last Admin: 07/02/23 20:59 Dose: 300 mg Documented By: NAOMY Dextrose (Dextrose 50 % 25 Gm/50 Ml Syringe) 25 gm IVPUSH Q15M PRN; Protocol PRN Reason: per Hypoglycemia Standing Ord. Empagliflozin (Empagliflozin 25 Mg Tablet) 25 mg PO DAILY [facility] Last Admin: 07/03/23 08:59 Dose: 25 mg Documented By: BERNY Fluticasone Propionate (Fluticasone Propionate Nasal 16 Gm [place]) 1 spray NOSTRIL-B DAILY [facility] Last Admin: 07/03/23 10:07 Dose: Not Given Documented By: BERNY Non-Admin Reason: Med Not Available Glucose (Glucose Gel 15 Gm Gel..Gram.) 15 gm PO Q15M PRN; Protocol PRN Reason: per Hypoglycemia Standing Ord. Haloperidol (Haloperidol 5 Mg Tablet) 2.5 mg PO DAILY [facility] Last Admin: 07/03/23 08:59 Dose: 2.5 mg Documented By: BERNY Haloperidol (Haloperidol 5 Mg Tablet) 5 mg PO BEDTIME [facility] Last Admin: 07/02/23 20:59 Dose: 5 mg Documented By: NAOMY Dextrose (D5w) 1,000 mls @ 150 mls/hr IVCONT .Q6H40M [facility] Last Admin: 07/03/23 10:07 Dose: Not Given Documented By: BERNY Non-Admin Reason: Physician Approved Insulin Glargine (Insulin Glargine,Hum.Rec.Anlog 100 Unit/Ml 10 Ml Vial) 15 unit SUBCUT BEDTIME [facility] Insulin Human Lispro (Insulin Lispro 100 Unit/Ml 3 Ml Vial) 0 unit SUBCUT QIDACHS [facility]; Protocol Last Admin: 07/03/23 11:23 Dose: 10 unit Documented By: BERNY Lactic Acid (Ammonium Lactate 12 % Cream 140 Gm Tube) 1 appl TOPICAL DAILY [facility]; Protocol Last Admin: 07/03/23 10:07 Dose: Not Given Documented By: BERNY Non-Admin Reason: Med Not Available Melatonin (Melatonin 3 Mg Tablet) 6 mg PO BEDTIME PRN PRN Reason: Insomnia Metformin HCl (Metformin Hcl 1,000 Mg Tablet) 1,000 mg PO BID [facility] Last Admin: 07/03/23 08:59 Dose: 1,000 mg Documented By: BERNY Multivitamins/Vitamin C (Multivitamin Tablet) 1 tab PO DAILY [facility] Last Admin: 07/03/23 08:59 Dose: 1 tab Documented By: BERNY Ondansetron HCl (Ondansetron Hcl 4 Mg/2 Ml Vial) 4 mg IVPUSH Q8H PRN PRN Reason: Nausea and Vomiting Sertraline HCl (Sertraline Hcl 50 Mg Tablet) 150 mg PO DAILY [facility] Last Admin: 07/03/23 08:59 Dose: 150 mg Documented By: BERNY Sodium Chloride (0.9 % Sodium Chloride Flush 3 Ml Syringe) 3 ml IVFLUSH QSHIFT [facility] Last Admin: 07/03/23 09:05 Dose: 3 ml Documented By: BERNY Vitamin D (Cholecalciferol (Vitamin D3) 25 Mcg Tablet) 25 mcg PO DAILY [facility] Last Admin: 07/03/23 08:59 Dose: 25 mcg Documented By: BERNY Labs 07/03/23 05:28 07/03/23 05:28 Labs: Laboratory Results - last 24 hr 07/02/23 07/02/23 07/02/23 15:01 15:10 15:16 MCV 86.3 MCH 29.6 MCHC 34.4 RDW 13.1 Plt Count 191 MPV 11.1 Immature Gran % (Auto) 0.5 H Neut % (Auto) 65.7 Lymph % (Auto) 25.6 [place] % (Auto) 5.3 Eos % (Auto) 2.5 Baso % (Auto) 0.4 Lymph # (Auto) 2.4 [place] # (Auto) 0.5 Eos # (Auto) 0.2 Baso # (Auto) 0.0 Abs Immat Gran (auto) 0.05 H Absolute Neuts (auto) 6.1 Absolute Nucleated RBC 0.000 Nucleated RBC % (auto) 0.0 VBG pH 7.40 VBG pCO2 38 VBG pO2 86 VBG HCO3 24 VBG O2 Saturation 96.0 VBG Base Excess -0.6 Anion Gap 19 Estim Creat Clear Calc 51.9 Estimated GFR 44 POC Glucose 552 H* Random Glucose 615 H* Estimat Average Glucose Hemoglobin A1c % Calcium 9.3 D Magnesium 3.5 H* Total Bilirubin 0.3 Direct Bilirubin 0.1 AST 13 ALT 21 Alkaline Phosphatase 119 H Total Protein 7.7 Albumin 4.1 Beta-Hydroxybutyrate 2.01 H Urine Color Urine Appearance Urine pH Ur Specific [place] Urine Protein Urine Glucose (UA) Urine Ketones Urine Blood Urine Nitrite Ur Leukocyte Esterase Urine RBC Urine WBC Ur Squamous Epith Cells Urine Bacteria Hyaline Casts Influenza Type A (PCR) Influenza Type B (PCR) RSV RNA Qual (PCR) SARS-CoV-2 RNA (RT-PCR) 07/02/23 07/02/23 07/02/23 15:22 15:47 17:25 MCV MCH MCHC RDW Plt Count MPV Immature Gran % (Auto) Neut % (Auto) Lymph % (Auto) [place] % (Auto) Eos % (Auto) Baso % (Auto) Lymph # (Auto) [place] # (Auto) Eos # (Auto) Baso # (Auto) Abs Immat Gran (auto) Absolute Neuts (auto) Absolute Nucleated RBC Nucleated RBC % (auto) VBG pH VBG pCO2 VBG pO2 VBG HCO3 VBG O2 Saturation VBG Base Excess Anion Gap Estim Creat Clear Calc Estimated GFR POC Glucose 350 H* Random Glucose Estimat Average Glucose Hemoglobin A1c % Calcium Magnesium Total Bilirubin Direct Bilirubin AST ALT Alkaline Phosphatase Total Protein Albumin Beta-Hydroxybutyrate Urine Color Yellow Urine Appearance Clear Urine pH 5.0 Ur Specific [place] 1.020 Urine Protein Negative Urine Glucose (UA) >=1000 H Urine Ketones Trace Urine Blood Negative Urine Nitrite Negative Ur Leukocyte Esterase Negative Urine RBC 0-2 Urine WBC 0-5 Ur Squamous Epith Cells 0-2 Urine Bacteria None Seen Hyaline Casts 0-2 Influenza Type A (PCR) NEGATIVE Influenza Type B (PCR) NEGATIVE RSV RNA Qual (PCR) NEGATIVE SARS-CoV-2 RNA (RT-PCR) NEGATIVE 07/02/23 07/02/23 07/02/23 17:44 18:31 18:33 MCV MCH MCHC RDW Plt Count MPV Immature Gran % (Auto) Neut % (Auto) Lymph % (Auto) [place] % (Auto) Eos % (Auto) Baso % (Auto) Lymph # (Auto) [place] # (Auto) Eos # (Auto) Baso # (Auto) Abs Immat Gran (auto) Absolute Neuts (auto) Absolute Nucleated RBC Nucleated RBC % (auto) VBG pH VBG pCO2 VBG pO2 VBG HCO3 VBG O2 Saturation VBG Base Excess Anion Gap 15 Estim Creat Clear Calc 59.3 Estimated GFR 52 POC Glucose 318 H 285 H Random Glucose 286 H Estimat Average Glucose Hemoglobin A1c % Calcium 8.6 D Magnesium Total Bilirubin Direct Bilirubin AST ALT Alkaline Phosphatase Total Protein Albumin Beta-Hydroxybutyrate Urine Color Urine Appearance Urine pH Ur Specific [place] Urine Protein Urine Glucose (UA) Urine Ketones Urine Blood Urine Nitrite Ur Leukocyte Esterase Urine RBC Urine WBC Ur Squamous Epith Cells Urine Bacteria Hyaline Casts Influenza Type A (PCR) Influenza Type B (PCR) RSV RNA Qual (PCR) SARS-CoV-2 RNA (RT-PCR) 07/02/23 07/03/23 07/03/23 20:48 05:28 07:13 MCV 87.4 MCH 29.1 MCHC 33.2 RDW 13.2 Plt Count 171 MPV 11.6 Immature Gran % (Auto) 0.4 Neut % (Auto) 48.9 Lymph % (Auto) 38.4 [place] % (Auto) 5.2 Eos % (Auto) 6.6 H Baso % (Auto) 0.5 Lymph # (Auto) 2.8 [place] # (Auto) 0.4 Eos # (Auto) 0.5 H Baso # (Auto) 0.0 Abs Immat Gran (auto) 0.03 Absolute Neuts (auto) 3.6 Absolute Nucleated RBC 0.000 Nucleated RBC % (auto) 0.0 VBG pH VBG pCO2 VBG pO2 VBG HCO3 VBG O2 Saturation VBG Base Excess Anion Gap 13 Estim Creat Clear Calc 75.8 Estimated GFR > 60 POC Glucose 140 H 147 H Random Glucose 158 H Estimat Average Glucose Hemoglobin A1c % Calcium 8.9 Magnesium Total Bilirubin Direct Bilirubin AST ALT Alkaline Phosphatase Total Protein Albumin Beta-Hydroxybutyrate Urine Color Urine Appearance Urine pH Ur Specific [place] Urine Protein Urine Glucose (UA) Urine Ketones Urine Blood Urine Nitrite Ur Leukocyte Esterase Urine RBC Urine WBC Ur Squamous Epith Cells Urine Bacteria Hyaline Casts Influenza Type A (PCR) Influenza Type B (PCR) RSV RNA Qual (PCR) SARS-CoV-2 RNA (RT-PCR) 07/03/23 07/03/23 07:57 11:08 MCV MCH MCHC RDW Plt Count MPV Immature Gran % (Auto) Neut % (Auto) Lymph % (Auto) [place] % (Auto) Eos % (Auto) Baso % (Auto) Lymph # (Auto) [place] # (Auto) Eos # (Auto) Baso # (Auto) Abs Immat Gran (auto) Absolute Neuts (auto) Absolute Nucleated RBC Nucleated RBC % (auto) VBG pH VBG pCO2 VBG pO2 VBG HCO3 VBG O2 Saturation VBG Base Excess Anion Gap Estim Creat Clear Calc Estimated GFR POC Glucose 358 H* Random Glucose Estimat Average Glucose 258 Hemoglobin A1c % 10.6 H Calcium Magnesium Total Bilirubin Direct Bilirubin AST ALT Alkaline Phosphatase Total Protein Albumin Beta-Hydroxybutyrate Urine Color Urine Appearance Urine pH Ur Specific [place] Urine Protein Urine Glucose (UA) Urine Ketones Urine Blood Urine Nitrite Ur Leukocyte Esterase Urine RBC Urine WBC Ur Squamous Epith Cells Urine Bacteria Hyaline Casts Influenza Type A (PCR) Influenza Type B (PCR) RSV RNA Qual (PCR) SARS-CoV-2 RNA (RT-PCR) Assessment and Plan (1) Acute kidney injury: Status: Acute (2) Uncontrolled diabetes mellitus with hyperglycemia: Status: Acute Plan This is a 47-year-old male with pertinent history of PE on Eliquis, sub-[id number] diabetes mellitus, mood disorder, mixed hyperlipidemia who presents to the emergency department for evaluated of elevated blood sugars. Uncontrolled diabetes mellitus with hyperglycemia, A1C is 10, glucose level is better, no acidosis -Continue Lantus, Sliding, jardiance and Metformin Acute kidney injury, pre renal CJ d/t glucosuria, resolved. Mood disorder: Continue home mood stabilizers History of PE: On Eliquis Mixed hyperlipidemia: On statin DVT prophylaxis: Eliquis Full code need for inpt: CJ, hyperglycemia needing med adjustment Quality Stroke Does the patient have a stroke diagnosis?: No VTE Prior VTE?: No VTE Risk Level:: Medical - moderate - high VTE Device Contraindication: Treatment Not Indicated VTE Drug Contraindication: N/A - Med Ordered
[2023-07-03 15:13] VITALS: BP 127/85; PULSE 85; RESP 18; TEMP 36.2; O2SAT 99
[2023-07-03 16:05] LABS: Glucose, Whole Blood 85 mg/dL (60-115)
[2023-07-03 19:13] VITALS: BP 139/84; PULSE 83; RESP 18; TEMP 36.1; O2SAT 98
[2023-07-03 20:00] LABS: Glucose, Whole Blood 209 mg/dL (60-115)
[2023-07-03] MEDS: Insulin Glargine,Hum.rec.anlog 100 UNIT/ML 10 ML VIAL 15 UNIT SUBCUT (20:04)
[2023-07-03] MEDS: HaloperidoL 5 MG TABLET PO (20:05)
[2023-07-03] MEDS: cloZAPine 100 MG TABLET 300 MG PO (20:05)
[2023-07-04 00:20] LABS: Glucose, Whole Blood 170 mg/dL (60-115)
[2023-07-04 03:20] VITALS: BP 126/70; PULSE 88; RESP 18; TEMP 36.4; O2SAT 96
[2023-07-04 07:16] VITALS: BP 131/85; PULSE 82; RESP 20; TEMP 36.1; O2SAT 96
[2023-07-04 07:26] LABS: Glucose, Whole Blood 179 mg/dL (60-115)
[2023-07-04] MEDS: Insulin Lispro 100 UNIT/ML 3 ML VIAL SUBCUT ×4 (08:11→11:49)
[2023-07-04] MEDS: 0.9 % Sodium Chloride Flush 3 ML SYRINGE IVFLUSH (08:11)
[2023-07-04] MEDS: Ascorbic Acid 500 MG TABLET PO (08:12)
[2023-07-04] MEDS: Empagliflozin 25 MG TABLET PO (08:12)
[2023-07-04] MEDS: cloZAPine 25 MG TABLET 50 MG PO (08:12)
[2023-07-04] MEDS: Sertraline HCL 50 MG TABLET 150 MG PO (08:12)
[2023-07-04] MEDS: Cholecalciferol (Vitamin D3) 25 MCG TABLET PO (08:12)
[2023-07-04] MEDS: Atorvastatin Calcium 40 MG TABLET PO (08:13)
[2023-07-04] MEDS: HaloperidoL 5 MG TABLET 2.5 MG PO (08:13)
[2023-07-04] MEDS: Benztropine Mesylate 1 MG TABLET PO (08:13)
[2023-07-04] MEDS: Apixaban 5 MG TABLET PO (08:13)
[2023-07-04] MEDS: allopurinoL 100 MG TABLET PO (08:13)
[2023-07-04] MEDS: metFORMIN HCl 1,000 MG TABLET 1000 MG PO (08:13)
[2023-07-04] MEDS: Multivitamin TABLET 1 TAB PO (08:13)
[2023-07-04] MEDS: clonazePAM 0.5 MG TABLET PO (08:18)
[2023-07-04 09:30] LABS: Anion Gap 17 (12-20); Blood Urea Nitrogen 18 mg/dL (9-16); Calcium 9.8 mg/dL (8.4-10.2); Carbon Dioxide 28 mmol/L (22-29); Chloride 100 mmol/L (96-108); Creatinine Clr Calc Pharmacy 66.5; Estimated Glomerular Filt Rate 59; Glucose Random 336 mg/dL (60-115); Potassium 3.8 mmol/L (3.3-5.1); Sodium 141 mmol/L (135-145)
--- NOTE | 2023-07-04 09:47 | P.DS_ITS ---
DS: Providers Provider Date of Service: 07/04/23 Date of admission: 07/02/23 19:27 Primary care physician: Trevor Conley MD DS: Diagnosis Discharge Diagnosis (1) Acute kidney injury: Status: Resolved (2) Uncontrolled diabetes mellitus with hyperglycemia: Status: Resolved DS: Summary Hospital Course Hospital Course: admission hpi Chief Complaint: Elevated blood sugar This is a 47-year-old male with pertinent history of PE on Eliquis, byp-[id number] diabetes mellitus, mood disorder, mixed hyperlipidemia who presents to the emergency department for evaluated of elevated blood sugars. His blood sugar was found to be 600 at home and he presented to the ER. Patient does report polydipsia and polyuria that has been ongoing for a while. He is compliant with his home metformin. Recently about a month ago Jardiance was added to metformin by his PCP. Patient states his sugars have remained uncontrolled. He has never used insulin in the past. No fever, chills, chest discomfort, palpitations, shortness of breath, abdominal pain, changes in bowel habits. The emergency department, blood sugar found to be in the 600s and serum creatinine found to be elevated. hosptial course: He presented with hyperglycemia complicated Acute kidney failure and found to have A1 C of 10, he is not on insulin. There was no acidosis. His management consisted of aggresive IV fluid hydration and initiation of insulin. Oveall his sugar levels is better has improved, presently his fasting glucose is 179..He is to continue Jardiance, Metformin and newly added Lantus 15 units and sliding scale insulin via pen Acute kidney injury, pre renal CJ d/t glucosuria, resolved with IV fluid Mood disorder: Continue home mood stabilizers History of PE: On Eliquis, continue Mixed hyperlipidemia: On statin Time Attestation Discharge Coordination Time (in mins): 35 Quality: Safe Use of Opioids Does Pt have an Active Cancer Diagnosis on the Problem List?: No Quality: Stroke Does the patient have a stroke diagnosis?: No Physical Exam Vital Signs: Vital Signs: Last Vital Signs Temp 97.0 F 07/04/23 07:16 Pulse 82 07/04/23 07:16 Resp 20 07/04/23 07:16 BP 131/85 07/04/23 07:16 Pulse Ox 96 07/04/23 07:16 O2 Del Method Room Air 07/04/23 07:16 BMI result Body Mass Index 24.8 General: AO X 3, no acute distress Resp: CTA bilateral CVS: S1,S2,RRR GI: +BS, NT, no distention Skin: No rash Neuro: motor grossly intact Psych: appropriate affect DS: Data Data Completed and Pending Labs on day of discharge: Laboratory Results - last 24 hr 07/03/23 07/03/23 07/03/23 11:08 15:57 19:55 Hold Purple Top Sodium Potassium Chloride Carbon Dioxide Anion Gap BUN Creatinine Estim Creat Clear Calc Estimated GFR POC Glucose 358 H* 85 209 H Random Glucose Calcium 07/04/23 07/04/23 07/04/23 00:14 07:18 08:58 Hold Purple Top SEE NOTE Sodium Potassium Chloride Carbon Dioxide Anion Gap BUN Creatinine Estim Creat Clear Calc Estimated GFR POC Glucose 170 H 179 H Random Glucose Calcium 07/04/23 08:59 Hold Purple Top Sodium 141 Potassium 3.8 Chloride 100 Carbon Dioxide 28 Anion Gap 17 BUN 18 H Creatinine 1.31 Estim Creat Clear Calc 66.5 Estimated GFR 59 POC Glucose Random Glucose 336 H Calcium 9.8 D Discharge Plan Discharge Anticipated Discharge Date/Time: 07/04/23 09:43 Patient Disposition: Home Health Service Discharge Diagnosis: Uncontrolled diabetes, acute kidney injury Referrals: Trevor Conley MD [Primary Care Provider] - 1 Week Discharge Medications: New alcohol swabs Pads, Medicated 1 pad TOPICAL QIDACHS Qty: 100 0RF Rx Instructions: Use four times a day or as directed. insulin lispro [Humalog KwikPen Insulin] 100 unit/mL insulin pen 0 sliding scale dose SUBCUT QIDACHS Qty: 15 0RF Rx Instructions: Blood Sugar: <150 - 0 units 151-200 - 2 units 201-250 - 4 units 251-300 - 6 units 301-350 - 8 units >350 - 10 units insulin glargine [Lantus Solostar U-100 Insulin] 100 unit/mL (3 mL) insulin pen 15 unit SUBCUT DAILY Qty: 15 0RF Rx Instructions: in the morning (DME) pen needle, diabetic 32 gauge x 1/4 needle Qty: 100 0RF Rx Instructions: Use four times a day or as directed. Continued multivitamin Tablet 1 tab PO DAILY haloperidol 5 mg Tablet 2.5 mg PO DAILY haloperidol 5 mg Tablet 5 mg PO BEDTIME clozapine 100 mg tablet 300 mg PO BEDTIME sertraline 100 mg tablet 1.5 tab PO DAILY simvastatin 80 mg tablet 1 tab PO DAILY ascorbic acid (vitamin C) [Vitamin C] 500 mg tablet 1 tab PO DAILY metformin 1,000 mg tablet 1 tab PO BID benztropine 1 mg tablet 1 tab PO BID fluticasone propionate 50 mcg/actuation spray,suspension 1 spray intranasal DAILY cholecalciferol (vitamin D3) [Vitamin D3] 25 mcg (1,000 unit) capsule 1 cap PO DAILY clozapine 50 mg Tablet 50 mg PO DAILY clonazepam 1 mg tablet 0.5 mg PO BID ammonium lactate 12 % cream 1 appl topical DAILY Eliquis 2.5 mg tablet 2.5 mg PO BID Jardiance 25 mg tablet 25 mg PO DAILY allopurinol 100 mg tablet 100 mg PO DAILY Discharge Orders: Discharge Order (Routine); Ordered 07/04/23 Ordered By: Mark Dunne Diet: Diabetic diet Activity on Discharge: As tolerated Stand Alone Forms: Patient Portal Discharge page, Work/School Release Print Language: [place] Care Plan Goals: recovery from diabetes, kidney failure and control of diabetes Health Concerns: uncontrolled diabetes with hyperglycemia, acute kindye injury Plan of Treatment: Take insulin as directed take Jardiance and Metformin as directed Drink pleny to of water average of 2.5 liters a day check labs later during week follow up with your Doctor in a week Assessment: see above Discharge Date/Time: 07/04/23 16:36
--- NOTE | 2023-07-04 09:53 | P.PNIM_ITS ---
Subjective Subjective Date of Service: 07/04/23 Interval History: f/u on hyperglycemia, CJ BS is better, FBS 179 Physical Exam 2 Vital Signs: Vital Signs: Last Vital Signs Temp 97.0 F 07/04/23 07:16 Pulse 82 07/04/23 07:16 Resp 20 07/04/23 07:16 BP 131/85 07/04/23 07:16 Pulse Ox 96 07/04/23 07:16 O2 Del Method Room Air 07/04/23 07:16 BMI result Body Mass Index 24.8 General: AO X 3, no acute distress Resp: CTA bilateral CVS: S1,S2,RRR GI: +BS, NT, no distention Skin: No rash Neuro: motor grossly intact Psych: appropriate affect Objective Data Active Medications Acetaminophen (Acetaminophen 325 Mg Tablet) 650 mg PO Q6H PRN PRN Reason: Pain, Mild (Pain Scale 1-3) Allopurinol (Allopurinol 100 Mg Tablet) 100 mg PO DAILY [facility] Last Admin: 07/04/23 08:13 Dose: 100 mg Documented By: GEORGE Apixaban (Apixaban 5 Mg Tablet) 5 mg PO BID [facility] Last Admin: 07/04/23 08:13 Dose: 5 mg Documented By: GEORGE Ascorbic Acid (Ascorbic Acid 500 Mg Tablet) 500 mg PO DAILY [facility] Last Admin: 07/04/23 08:12 Dose: 500 mg Documented By: GEORGE Atorvastatin Calcium (Atorvastatin Calcium 40 Mg Tablet) 40 mg PO DAILY [facility] Last Admin: 07/04/23 08:13 Dose: 40 mg Documented By: GEORGE Benztropine Mesylate (Benztropine Mesylate 1 Mg Tablet) 1 mg PO BID [facility] Last Admin: 07/04/23 08:13 Dose: 1 mg Documented By: GEORGE Clonazepam (Clonazepam 0.5 Mg Tablet) 0.5 mg PO BID [facility] Last Admin: 07/04/23 08:18 Dose: 0.5 mg Documented By: GEORGE Clozapine (Clozapine 25 Mg Tablet) 50 mg PO DAILY [facility] Last Admin: 07/04/23 08:12 Dose: 50 mg Documented By: GEORGE Clozapine (Clozapine 100 Mg Tablet) 300 mg PO BEDTIME [facility] Last Admin: 07/03/23 20:05 Dose: 300 mg Documented By: BING Dextrose (Dextrose 50 % 25 Gm/50 Ml Syringe) 25 gm IVPUSH Q15M PRN; Protocol PRN Reason: per Hypoglycemia Standing Ord. Empagliflozin (Empagliflozin 25 Mg Tablet) 25 mg PO DAILY [facility] Last Admin: 07/04/23 08:12 Dose: 25 mg Documented By: GEORGE Fluticasone Propionate (Fluticasone Propionate Nasal 16 Gm [place]) 1 spray NOSTRIL-B DAILY [facility] Last Admin: 07/04/23 08:13 Dose: Not Given Documented By: GEORGE Non-Admin Reason: Patient Refused Glucose (Glucose Gel 15 Gm Gel..Gram.) 15 gm PO Q15M PRN; Protocol PRN Reason: per Hypoglycemia Standing Ord. Haloperidol (Haloperidol 5 Mg Tablet) 2.5 mg PO DAILY [facility] Last Admin: 07/04/23 08:13 Dose: 2.5 mg Documented By: GEORGE Haloperidol (Haloperidol 5 Mg Tablet) 5 mg PO BEDTIME [facility] Last Admin: 07/03/23 20:05 Dose: 5 mg Documented By: BING Dextrose (D5w) 1,000 mls @ 150 mls/hr IVCONT .Q6H40M [facility] Last Admin: 07/04/23 09:41 Dose: Not Given Documented By: GEORGE Non-Admin Reason: Physician Held Med Insulin Glargine (Insulin Glargine,Hum.Rec.Anlog 100 Unit/Ml 10 Ml Vial) 15 unit SUBCUT BEDTIME [facility] Last Admin: 07/03/23 20:04 Dose: 15 unit Documented By: BING Insulin Human Lispro (Insulin Lispro 100 Unit/Ml 3 Ml Vial) 0 unit SUBCUT QIDACHS [facility]; Protocol Last Admin: 07/04/23 08:11 Dose: 2 unit Documented By: GEORGE Insulin Human Lispro (Insulin Lispro 100 Unit/Ml 3 Ml Vial) 5 unit SUBCUT QIDACHS [facility] Last Admin: 07/04/23 08:11 Dose: 5 unit Documented By: GEORGE Lactic Acid (Ammonium Lactate 12 % Cream 140 Gm Tube) 1 appl TOPICAL DAILY [facility]; Protocol Last Admin: 07/04/23 08:57 Dose: Not Given Documented By: GEORGE Non-Admin Reason: Med Not Available Melatonin (Melatonin 3 Mg Tablet) 6 mg PO BEDTIME PRN PRN Reason: Insomnia Metformin HCl (Metformin Hcl 1,000 Mg Tablet) 1,000 mg PO BID [facility] Last Admin: 07/04/23 08:13 Dose: 1,000 mg Documented By: GEORGE Multivitamins/Vitamin C (Multivitamin Tablet) 1 tab PO DAILY [facility] Last Admin: 07/04/23 08:13 Dose: 1 tab Documented By: GEORGE Ondansetron HCl (Ondansetron Hcl 4 Mg/2 Ml Vial) 4 mg IVPUSH Q8H PRN PRN Reason: Nausea and Vomiting Sertraline HCl (Sertraline Hcl 50 Mg Tablet) 150 mg PO DAILY [facility] Last Admin: 07/04/23 08:12 Dose: 150 mg Documented By: GEORGE Sodium Chloride (0.9 % Sodium Chloride Flush 3 Ml Syringe) 3 ml IVFLUSH QSHIFT [facility] Last Admin: 07/04/23 08:11 Dose: 3 ml Documented By: GEORGE Vitamin D (Cholecalciferol (Vitamin D3) 25 Mcg Tablet) 25 mcg PO DAILY [facility] Last Admin: 07/04/23 08:12 Dose: 25 mcg Documented By: GEORGE Labs 07/03/23 05:28 07/04/23 08:59 Labs: Laboratory Results - last 24 hr 07/03/23 07/03/23 07/03/23 11:08 15:57 19:55 Hold Purple Top Anion Gap Estim Creat Clear Calc Estimated GFR POC Glucose 358 H* 85 209 H Random Glucose Calcium 07/04/23 07/04/23 07/04/23 00:14 07:18 08:58 Hold Purple Top SEE NOTE Anion Gap Estim Creat Clear Calc Estimated GFR POC Glucose 170 H 179 H Random Glucose Calcium 07/04/23 08:59 Hold Purple Top Anion Gap 17 Estim Creat Clear Calc 66.5 Estimated GFR 59 POC Glucose Random Glucose 336 H Calcium 9.8 D Assessment and Plan (1) Acute kidney injury: Status: Acute (2) Uncontrolled diabetes mellitus with hyperglycemia: Status: Acute Plan 47/M with diabetes, He presented with hyperglycemia complicated Acute kidney failure and found to have A1 C of 10, he is not on insulin. There was no acidosis. His management consisted of aggresive IV fluid hydration and initiation of insulin. Oveall his sugar levels is better has improved, presently his fasting glucose is 179..He is to continue Jardiance, Metformin and newly added Lantus 15 units and sliding scale insulin via pen Acute kidney injury, pre renal CJ d/t glucosuria, resolved with IV fluid PTSD/Schizoaffective d/o : Continue home meds History of PE: On Eliquis, continue Mixed hyperlipidemia: On statin dvt pro eliquis need for inpt; treatment of acute hyperglycemia with cj need ivf and med adjustment Quality Stroke Does the patient have a stroke diagnosis?: No VTE Prior VTE?: No VTE Risk Level:: Medical - moderate - high VTE Device Contraindication: Treatment Not Indicated VTE Drug Contraindication: N/A - Med Ordered
--- NOTE | 2023-07-04 10:37 | MHC.CM.PN ---
Per MD rounds patient is medically cleared for dc back to foster home with resumption of VNA. Patient will start new insulin - sliding scale TID and Lantus every AM. Plan for insulin is as follows: [facility] will administer morning meds M-F, patient's day program will administer lunch dose M-F, foster family will administer evenings and weekends. CM spoke with Amarilis from [facility], they are very comfortable with insulin and decline teaching from [facility] RN at this time. VNA aware and will provide reinforcement if needed. CM LM for [facility] to inform of med changes. Amarilis to provide transportation home. CM reviewed plan with mother/guardian via telephone. Agreeable to plan. IMM verbally delivered.
[2023-07-04 11:19] LABS: Glucose, Whole Blood 367 mg/dL (60-115)
[2023-07-04 13:18] LABS: Glucose, Whole Blood 262 mg/dL (60-115)
[2023-07-04] MEDS: Insulin Glargine,Hum.rec.anlog 100 UNIT/ML 10 ML VIAL 12 UNIT SUBCUT (13:23)
--- NOTE | 2023-07-04 14:17 | P.F2F_ITS ---
Service Date Service Date: 07/04/23 Encounter Date of encounter: 07/04/23 Reasons for Services Signs and symptoms assessed: uncontrolled diabetes Reason for correction: medication management and medication treatment Homebound: Leaving the home is medically contraindicated at this time without the asist of a device and/or another person due th the listed conditions above and below. Reason homebound: other (fluctuating blood sugars) Certification: Based on the above findings, I certify that this patient is confined to the home and needs intermittent correction care, physical therapy and/or speech therapy, or continues to need occupational therapy. The patient is under my care, and I have initiated the establishment of the plan of care. The patient will be followed by a physician who will periodically review the plan of care. Time Spent With Patient Time: Total time managing care of this patient today ____ minutes.
[2023-07-04 14:56] VITALS: BP 130/86; PULSE 100; RESP 18; TEMP 36.7; O2SAT 98
== END 2023-07-04 16:36 | disposition home health service (06) | DRG 638 ==
LOC: HO.ED 16:29 → HO.EDOVER 19:42 → HO.S3 20:31
PROVIDERS: Admitting Provider Student in an Organized Health Care Education/Training Program; Emergency Provider Internal Medicine; PCP Internal Medicine; Visit Provider Internal Medicine
DX: E11.65 Type 2 diabetes mellitus with hyperglycemia (principal); N17.9 Acute kidney failure, unspecified; F39 Unspecified mood [affective] disorder; E78.2 Mixed hyperlipidemia; F43.10 Post-traumatic stress disorder, unspecified; Z20.822 Contact with and (suspected) exposure to COVID-19; Z86.711 Personal history of pulmonary embolism; Z79.4 Long term (current) use of insulin; Z79.84 Long term (current) use of oral hypoglycemic drugs; Z79.899 Other long term (current) drug therapy
CPT/HCPCS: 0241U; 36415; 80048; 80076; 81001; 82010; 82803; 82947; 83036; 83735; 85025; 99285; J7120

== ENCOUNTER → 2023-07-02 19:27 | Outpatient (BNV) | payer MEDICARE, MEDICAID, SELFPAY | PROVIDERS: Admitting Provider Student in an Organized Health Care Education/Training Program; Emergency Provider Internal Medicine; PCP Internal Medicine; Visit Provider Student in an Organized Health Care Education/Training Program | DX: N17.9 Acute kidney failure, unspecified (principal); E11.65 Type 2 diabetes mellitus with hyperglycemia | CPT/HCPCS: 99222; 99232; 99238; 99239; G0180 ==

== ENCOUNTER 2023-07-06 15:42 | Outpatient (REF) | payer MEDICARE, MEDICAID, SELFPAY ==
[2023-07-06 18:26] LABS: Alanine Aminotransferase 55 U/L (0-40); Albumin Level 4.3 g/dL (3.5-5.0); Alkaline Phosphatase 110 U/L (39-117); Anion Gap 17 (12-20); Aspartate Amino Transferase 44 U/L (5-37); Bilirubin Total 0.2 mg/dL (0.0-1.0); Blood Urea Nitrogen 19 mg/dL (9-16); Carbon Dioxide 26 mmol/L (22-29); Chloride 105 mmol/L (96-108); Estimated Glomerular Filt Rate 52; Glucose Random 291 mg/dL (60-115); Potassium 3.8 mmol/L (3.3-5.1); Sodium 144 mmol/L (135-145); Total Protein 8.1 g/dL (6.5-8.0)
[2023-07-06 18:41] LABS: Free T4 (Free Thyroxine) 1.04 ng/dL (0.71-1.85)
[2023-07-07 03:55] LABS: Estimated Average Glucose 263 mg/dL; Hemoglobin A1c % 10.8 % (<6.0)
[2023-07-09 23:09] LABS: Glutamic acid decarboxylase Ab <5 IU/mL (<5)
== END 2023-07-06 15:43 | disposition home or self-care (01) ==
LOC: HO.LAB 15:42
PROVIDERS: PCP Internal Medicine; Visit Provider Internal Medicine
DX: E11.9 Type 2 diabetes mellitus without complications (principal); N28.9 Disorder of kidney and ureter, unspecified
CPT/HCPCS: 36415; 80053; 83036; 84439; 84443; 86341

== ENCOUNTER 2023-07-12 07:34 | Outpatient (REF) | payer MEDICARE, MEDICAID, SELFPAY ==
[2023-07-12 11:04] LABS: MANUAL DIFF FLAG NO
[2023-07-12 11:11] LABS: Basophils Percent Auto 0.7 % (0-2); Eosinophils Absolute Auto 0.3 X10*3/uL (0.0-0.4); Eosinophils Percent Auto 5.5 % (0-4); Hemoglobin 13.3 g/dl (14.0-18.0); Imm Gran Abs Auto 0.02 X10*3/uL (0.00-0.03); Imm Gran Pct Auto 0.3 % (0.0-0.4); Lymphocytes Absolute Auto 1.8 X10*3/uL (1.2-4.9); Lymphocytes Percent Auto 30.9 % (20-40); Mean Corpuscular HGB Conc 33.3 g/dl (31.0-36.0); Mean Corpuscular Hemoglobin 29.3 pg (27.0-33.0); Mean Corpuscular Volume 88.1 fL (80.0-98.0); Mean Platelet Volume 11.6 fL (9.4-12.4); Monocytes Absolute Auto 0.3 X10*3/uL (0.1-1.2); Monocytes Percent Auto 5.9 % (2-11); Neutrophils Absolute Auto 3.3 x10*3/uL (2.0-8.3); Neutrophils Percent Auto 56.7 % (45-73); Platelet Count 192 X10*3/uL (160-400); Red Blood Count 4.54 X10*6/uL (4.60-5.80); Red Cell Distribution Width 13.5 % (11.0-16.0); White Blood Count 5.8 X10*3/uL (4.8-10.8)
[2023-07-12 11:14] LABS: Estimated Average Glucose 258 mg/dL; Hemoglobin A1c % 10.6 % (<6.0)
[2023-07-12 11:43] LABS: Alanine Aminotransferase 43 U/L (0-40); Alkaline Phosphatase 89 U/L (39-117); Anion Gap 15 (12-20); Aspartate Amino Transferase 17 U/L (5-37); Bilirubin Total 0.2 mg/dL (0.0-1.0); Blood Urea Nitrogen 17 mg/dL (9-16); Calcium 9.2 mg/dL (8.4-10.2); Carbon Dioxide 25 mmol/L (22-29); Chloride 104 mmol/L (96-108); Estimated Glomerular Filt Rate > 60; Glucose Random 252 mg/dL (60-115); Potassium 3.8 mmol/L (3.3-5.1); Sodium 140 mmol/L (135-145); Total Protein 7.1 g/dL (6.5-8.0)
[2023-07-12 11:52] LABS: Creatinine Urine 26.19 mg/dL
== END 2023-07-12 07:35 | disposition home or self-care (01) ==
LOC: HO.10HDL 07:34
PROVIDERS: Referring Provider Psychiatry & Neurology Psychiatry; Visit Provider Internal Medicine
DX: E11.9 Type 2 diabetes mellitus without complications (principal); I10 Essential (primary) hypertension; Z79.899 Other long term (current) drug therapy
CPT/HCPCS: 36415; 80053; 82043; 82570; 83036; 85025

== ENCOUNTER 2023-08-15 07:31 | Outpatient (REF) | payer MEDICARE, MEDICAID, SELFPAY ==
[2023-08-15 10:23] LABS: MANUAL DIFF FLAG NO
[2023-08-15 10:38] LABS: Basophils Absolute Auto 0.1 X10*3/uL (0.0-0.2); Basophils Percent Auto 0.8 % (0-2); Eosinophils Absolute Auto 0.5 X10*3/uL (0.0-0.4); Eosinophils Percent Auto 8.3 % (0-4); Hematocrit 40.2 % (42.0-52.0); Hemoglobin 13.4 g/dl (14.0-18.0); Imm Gran Abs Auto 0.01 X10*3/uL (0.00-0.03); Imm Gran Pct Auto 0.2 % (0.0-0.4); Lymphocytes Absolute Auto 1.8 X10*3/uL (1.2-4.9); Lymphocytes Percent Auto 29.2 % (20-40); Mean Corpuscular HGB Conc 33.3 g/dl (31.0-36.0); Mean Corpuscular Hemoglobin 29.3 pg (27.0-33.0); Mean Platelet Volume 10.8 fL (9.4-12.4); Monocytes Absolute Auto 0.3 X10*3/uL (0.1-1.2); Monocytes Percent Auto 5.4 % (2-11); Neutrophils Absolute Auto 3.5 x10*3/uL (2.0-8.3); Neutrophils Percent Auto 56.1 % (45-73); Platelet Count 191 X10*3/uL (160-400); Red Blood Count 4.57 X10*6/uL (4.60-5.80); Red Cell Distribution Width 13.2 % (11.0-16.0); White Blood Count 6.2 X10*3/uL (4.8-10.8)
== END 2023-08-15 07:32 | disposition home or self-care (01) ==
LOC: HO.10HDL 07:31
PROVIDERS: Visit Provider Psychiatry & Neurology Psychiatry
DX: Z79.899 Other long term (current) drug therapy (principal)
CPT/HCPCS: 36415; 85025

== ENCOUNTER 2023-08-21 07:30 | Outpatient (REF) | payer MEDICARE, MEDICAID, SELFPAY ==
[2023-08-21 11:13] LABS: Anion Gap 14 (12-20); Blood Urea Nitrogen 18 mg/dL (9-16); Calcium 10.1 mg/dL (8.4-10.2); Carbon Dioxide 27 mmol/L (22-29); Chloride 106 mmol/L (96-108); Estimated Glomerular Filt Rate > 60; Glucose Fasting 158 mg/dL (60-99); Potassium 3.8 mmol/L (3.3-5.1); Sodium 143 mmol/L (135-145)
== END 2023-08-21 07:31 | disposition home or self-care (01) ==
LOC: HO.10HDL 07:30
PROVIDERS: Visit Provider Internal Medicine
DX: N17.9 Acute kidney failure, unspecified (principal); E11.65 Type 2 diabetes mellitus with hyperglycemia; E87.0 Hyperosmolality and hypernatremia
CPT/HCPCS: 36415; 80048

== ENCOUNTER 2023-09-10 07:31 | Outpatient (REF) | payer MEDICARE, MEDICAID, SELFPAY ==
[2023-09-10 11:12] LABS: MANUAL DIFF FLAG NO
[2023-09-10 11:20] LABS: Basophils Absolute Auto 0.1 X10*3/uL (0.0-0.2); Basophils Percent Auto 0.9 % (0-2); Eosinophils Absolute Auto 0.6 X10*3/uL (0.0-0.4); Eosinophils Percent Auto 9.1 % (0-4); Hematocrit 41.4 % (42.0-52.0); Hemoglobin 13.7 g/dl (14.0-18.0); Imm Gran Abs Auto 0.02 X10*3/uL (0.00-0.03); Imm Gran Pct Auto 0.3 % (0.0-0.4); Lymphocytes Percent Auto 29.7 % (20-40); Mean Corpuscular HGB Conc 33.1 g/dl (31.0-36.0); Mean Corpuscular Hemoglobin 29.1 pg (27.0-33.0); Mean Corpuscular Volume 88.1 fL (80.0-98.0); Mean Platelet Volume 11.2 fL (9.4-12.4); Monocytes Absolute Auto 0.3 X10*3/uL (0.1-1.2); Monocytes Percent Auto 4.3 % (2-11); Neutrophils Absolute Auto 3.8 x10*3/uL (2.0-8.3); Neutrophils Percent Auto 55.7 % (45-73); Platelet Count 190 X10*3/uL (160-400); Red Cell Distribution Width 13.3 % (11.0-16.0); White Blood Count 6.8 X10*3/uL (4.8-10.8)
[2023-09-10 11:27] LABS: Estimated Average Glucose 169 mg/dL; Hemoglobin A1c % 7.5 % (<6.0)
[2023-09-10 11:28] LABS: Anion Gap 17 (12-20); Blood Urea Nitrogen 15 mg/dL (9-16); Calcium 9.7 mg/dL (8.4-10.2); Carbon Dioxide 25 mmol/L (22-29); Chloride 103 mmol/L (96-108); Estimated Glomerular Filt Rate > 60; Glucose Random 229 mg/dL (60-115); Potassium 3.5 mmol/L (3.3-5.1); Sodium 141 mmol/L (135-145)
== END 2023-09-10 07:32 | disposition home or self-care (01) ==
LOC: HO.10HDL 07:31
PROVIDERS: Referring Provider Psychiatry & Neurology Psychiatry; Visit Provider Internal Medicine
DX: E11.9 Type 2 diabetes mellitus without complications (principal); Z79.899 Other long term (current) drug therapy
CPT/HCPCS: 36415; 80048; 83036; 85025

== ENCOUNTER 2023-10-15 07:26 | Outpatient (REF) | payer MEDICARE, MEDICAID, SELFPAY ==
[2023-10-15 11:07] LABS: MANUAL DIFF FLAG NO
[2023-10-15 11:11] LABS: Basophils Absolute Auto 0.1 X10*3/uL (0.0-0.2); Eosinophils Absolute Auto 0.9 X10*3/uL (0.0-0.4); Eosinophils Percent Auto 12.4 % (0-4); Hematocrit 39.8 % (42.0-52.0); Hemoglobin 12.8 g/dl (14.0-18.0); Imm Gran Abs Auto 0.02 X10*3/uL (0.00-0.03); Imm Gran Pct Auto 0.3 % (0.0-0.4); Lymphocytes Absolute Auto 1.9 X10*3/uL (1.2-4.9); Lymphocytes Percent Auto 26.4 % (20-40); Mean Corpuscular HGB Conc 32.2 g/dl (31.0-36.0); Mean Platelet Volume 10.8 fL (9.4-12.4); Monocytes Absolute Auto 0.4 X10*3/uL (0.1-1.2); Monocytes Percent Auto 5.1 % (2-11); Neutrophils Absolute Auto 3.9 x10*3/uL (2.0-8.3); Neutrophils Percent Auto 54.8 % (45-73); Platelet Count 181 X10*3/uL (160-400); Red Blood Count 4.42 X10*6/uL (4.60-5.80); Red Cell Distribution Width 13.5 % (11.0-16.0); White Blood Count 7.2 X10*3/uL (4.8-10.8)
== END 2023-10-15 07:27 | disposition home or self-care (01) ==
LOC: HO.10HDL 07:26
PROVIDERS: Visit Provider Psychiatry & Neurology Psychiatry
DX: Z79.899 Other long term (current) drug therapy (principal)
CPT/HCPCS: 36415; 85025

== ENCOUNTER 2023-11-21 07:20 | Outpatient (REF) | payer MEDICARE, MEDICAID, SELFPAY ==
[2023-11-21 07:34] LABS: MANUAL DIFF FLAG NO
[2023-11-21 09:16] LABS: Basophils Absolute Auto 0.1 X10*3/uL (0.0-0.2); Basophils Percent Auto 0.8 % (0-2); Eosinophils Absolute Auto 0.7 X10*3/uL (0.0-0.4); Eosinophils Percent Auto 9.9 % (0-4); Hematocrit 41.6 % (42.0-52.0); Hemoglobin 13.9 g/dl (14.0-18.0); Imm Gran Abs Auto 0.01 X10*3/uL (0.00-0.03); Imm Gran Pct Auto 0.1 % (0.0-0.4); Lymphocytes Absolute Auto 1.9 X10*3/uL (1.2-4.9); Lymphocytes Percent Auto 24.8 % (20-40); Mean Corpuscular HGB Conc 33.4 g/dl (31.0-36.0); Mean Corpuscular Hemoglobin 29.4 pg (27.0-33.0); Mean Corpuscular Volume 87.9 fL (80.0-98.0); Mean Platelet Volume 11.5 fL (9.4-12.4); Monocytes Absolute Auto 0.4 X10*3/uL (0.1-1.2); Monocytes Percent Auto 5.6 % (2-11); Neutrophils Absolute Auto 4.4 x10*3/uL (2.0-8.3); Neutrophils Percent Auto 58.8 % (45-73); Platelet Count 190 X10*3/uL (160-400); Red Blood Count 4.73 X10*6/uL (4.60-5.80); Red Cell Distribution Width 13.6 % (11.0-16.0); White Blood Count 7.5 X10*3/uL (4.8-10.8)
== END 2023-11-21 07:21 | disposition home or self-care (01) ==
LOC: HO.LABR 07:20
PROVIDERS: PCP Internal Medicine; Visit Provider Psychiatry & Neurology Psychiatry
DX: Z79.899 Other long term (current) drug therapy (principal)
CPT/HCPCS: 36415; 85025

== ENCOUNTER 2023-12-18 07:32 | Outpatient (REF) | payer MEDICARE, MEDICAID, SELFPAY ==
[2023-12-18 10:41] LABS: MANUAL DIFF FLAG NO
[2023-12-18 10:52] LABS: Basophils Absolute Auto 0.1 X10*3/uL (0.0-0.2); Basophils Percent Auto 0.8 % (0-2); Eosinophils Absolute Auto 1.1 X10*3/uL (0.0-0.4); Eosinophils Percent Auto 13.3 % (0-4); Hematocrit 42.9 % (42.0-52.0); Hemoglobin 14.2 g/dl (14.0-18.0); Imm Gran Abs Auto 0.03 X10*3/uL (0.00-0.03); Imm Gran Pct Auto 0.4 % (0.0-0.4); Lymphocytes Absolute Auto 2.2 X10*3/uL (1.2-4.9); Lymphocytes Percent Auto 27.1 % (20-40); Mean Corpuscular HGB Conc 33.1 g/dl (31.0-36.0); Mean Corpuscular Hemoglobin 29.1 pg (27.0-33.0); Mean Corpuscular Volume 87.9 fL (80.0-98.0); Mean Platelet Volume 10.7 fL (9.4-12.4); Monocytes Absolute Auto 0.4 X10*3/uL (0.1-1.2); Monocytes Percent Auto 5.3 % (2-11); Neutrophils Absolute Auto 4.3 x10*3/uL (2.0-8.3); Neutrophils Percent Auto 53.1 % (45-73); Platelet Count 191 X10*3/uL (160-400); Red Blood Count 4.88 X10*6/uL (4.60-5.80); Red Cell Distribution Width 13.9 % (11.0-16.0)
== END 2023-12-18 07:33 | disposition home or self-care (01) ==
LOC: HO.10HDL 07:32
PROVIDERS: Visit Provider Psychiatry & Neurology Psychiatry
DX: Z79.899 Other long term (current) drug therapy (principal)
CPT/HCPCS: 36415; 85025

== ENCOUNTER 2024-01-16 07:27 | Outpatient (REF) | payer MEDICARE, MEDICAID, SELFPAY ==
[2024-01-16 10:00] LABS: MANUAL DIFF FLAG NO
[2024-01-16 10:03] LABS: Basophils Absolute Auto 0.1 X10*3/uL (0.0-0.2); Basophils Percent Auto 0.9 % (0-2); Eosinophils Percent Auto 12.7 % (0-4); Hematocrit 42.4 % (42.0-52.0); Imm Gran Abs Auto 0.01 X10*3/uL (0.00-0.03); Imm Gran Pct Auto 0.1 % (0.0-0.4); Lymphocytes Absolute Auto 2.5 X10*3/uL (1.2-4.9); Lymphocytes Percent Auto 32.1 % (20-40); Mean Corpuscular Hemoglobin 29.1 pg (27.0-33.0); Mean Corpuscular Volume 88.1 fL (80.0-98.0); Monocytes Absolute Auto 0.4 X10*3/uL (0.1-1.2); Monocytes Percent Auto 5.3 % (2-11); Neutrophils Absolute Auto 3.8 x10*3/uL (2.0-8.3); Neutrophils Percent Auto 48.9 % (45-73); Platelet Count 194 X10*3/uL (160-400); Red Blood Count 4.81 X10*6/uL (4.60-5.80); Red Cell Distribution Width 13.5 % (11.0-16.0); White Blood Count 7.9 X10*3/uL (4.8-10.8)
== END 2024-01-16 07:28 | disposition home or self-care (01) ==
LOC: HO.10HDL 07:27
PROVIDERS: Visit Provider Psychiatry & Neurology Psychiatry
DX: Z79.899 Other long term (current) drug therapy (principal)
CPT/HCPCS: 36415; 85025

== ENCOUNTER 2024-02-16 09:41 | Outpatient (REF) | payer MEDICARE, MEDICAID, SELFPAY ==
[2024-02-16 10:05] LABS: MANUAL DIFF FLAG NO
[2024-02-16 10:29] LABS: Basophils Absolute Auto 0.1 X10*3/uL (0.0-0.2); Basophils Percent Auto 0.7 % (0-2); Eosinophils Absolute Auto 0.8 X10*3/uL (0.0-0.4); Eosinophils Percent Auto 9.1 % (0-4); Hematocrit 43.8 % (42.0-52.0); Hemoglobin 14.7 g/dl (14.0-18.0); Imm Gran Abs Auto 0.02 X10*3/uL (0.00-0.03); Imm Gran Pct Auto 0.2 % (0.0-0.4); Lymphocytes Absolute Auto 2.4 X10*3/uL (1.2-4.9); Lymphocytes Percent Auto 27.3 % (20-40); Mean Corpuscular HGB Conc 33.6 g/dl (31.0-36.0); Mean Corpuscular Hemoglobin 29.2 pg (27.0-33.0); Mean Corpuscular Volume 86.9 fL (80.0-98.0); Mean Platelet Volume 10.5 fL (9.4-12.4); Monocytes Absolute Auto 0.4 X10*3/uL (0.1-1.2); Neutrophils Absolute Auto 5.1 x10*3/uL (2.0-8.3); Neutrophils Percent Auto 57.7 % (45-73); Platelet Count 226 X10*3/uL (160-400); Red Blood Count 5.04 X10*6/uL (4.60-5.80); Red Cell Distribution Width 13.3 % (11.0-16.0); White Blood Count 8.8 X10*3/uL (4.8-10.8)
== END 2024-02-16 09:42 | disposition home or self-care (01) ==
LOC: HO.LABR 09:41
PROVIDERS: PCP Internal Medicine; Visit Provider Psychiatry & Neurology Psychiatry
DX: Z79.899 Other long term (current) drug therapy (principal)
CPT/HCPCS: 36415; 85025

== ENCOUNTER 2024-03-17 15:06 | Outpatient (REF) | payer MEDICARE, MEDICAID, SELFPAY ==
[2024-03-17 15:28] LABS: MANUAL DIFF FLAG NO
[2024-03-17 16:09] LABS: Basophils Absolute Auto 0.1 X10*3/uL (0.0-0.2); Basophils Percent Auto 0.7 % (0-2); Eosinophils Absolute Auto 0.8 X10*3/uL (0.0-0.4); Eosinophils Percent Auto 9.1 % (0-4); Hematocrit 38.6 % (42.0-52.0); Hemoglobin 13.4 g/dl (14.0-18.0); Imm Gran Abs Auto 0.03 X10*3/uL (0.00-0.03); Imm Gran Pct Auto 0.3 % (0.0-0.4); Lymphocytes Absolute Auto 2.5 X10*3/uL (1.2-4.9); Lymphocytes Percent Auto 29.1 % (20-40); Mean Corpuscular HGB Conc 34.7 g/dl (31.0-36.0); Mean Corpuscular Hemoglobin 29.4 pg (27.0-33.0); Mean Corpuscular Volume 84.6 fL (80.0-98.0); Mean Platelet Volume 10.6 fL (9.4-12.4); Monocytes Absolute Auto 0.6 X10*3/uL (0.1-1.2); Monocytes Percent Auto 6.6 % (2-11); Neutrophils Absolute Auto 4.7 x10*3/uL (2.0-8.3); Neutrophils Percent Auto 54.2 % (45-73); Platelet Count 202 X10*3/uL (160-400); Red Blood Count 4.56 X10*6/uL (4.60-5.80); White Blood Count 8.7 X10*3/uL (4.8-10.8)
[2024-03-17 16:28] LABS: Estimated Average Glucose 166 mg/dL; Hemoglobin A1C 196.7715 umol/L; Hemoglobin A1c % 7.4 % (<6.0); Total Hemoglobin (HGBA1C) 3440.5492 umol/L
[2024-03-17 16:37] LABS: Appearance Urine Clear; Color Urine Yellow; Glucose Urine UA Negative (Negative); Leukocyte Esterase Urine Negative (Negative); Nitrite Urine Negative (Negative); Specific Gravity - Urine <= 1.005 (1.005-1.025); Urine Blood Negative (Negative); Urine Ketones Negative (Negative); Urine Protein Negative (Neg-Trace)
[2024-03-17 17:37] LABS: Creatinine Urine 24.33 mg/dL; Microalbum/Creatinine Ratio Ur 69.8 ug/mg cr (<30)
== END 2024-03-17 15:07 | disposition home or self-care (01) ==
LOC: HO.LAB 15:06
PROVIDERS: PCP Internal Medicine; Visit Provider Internal Medicine
DX: E11.9 Type 2 diabetes mellitus without complications (principal); E78.00 Pure hypercholesterolemia, unspecified
CPT/HCPCS: 36415; 81003; 82043; 82570; 83036; 85025

== ENCOUNTER 2024-03-19 15:33 | Outpatient (REF) | payer MEDICARE, MEDICAID, SELFPAY ==
[2024-03-19 15:48] LABS: MANUAL DIFF FLAG NO
[2024-03-19 16:24] LABS: Basophils Absolute Auto 0.1 X10*3/uL (0.0-0.2); Basophils Percent Auto 0.6 % (0-2); Eosinophils Absolute Auto 0.8 X10*3/uL (0.0-0.4); Eosinophils Percent Auto 9.2 % (0-4); Hematocrit 39.8 % (42.0-52.0); Hemoglobin 13.7 g/dl (14.0-18.0); Imm Gran Abs Auto 0.03 X10*3/uL (0.00-0.03); Imm Gran Pct Auto 0.3 % (0.0-0.4); Lymphocytes Absolute Auto 3.1 X10*3/uL (1.2-4.9); Lymphocytes Percent Auto 36.3 % (20-40); Mean Corpuscular HGB Conc 34.4 g/dl (31.0-36.0); Mean Corpuscular Hemoglobin 29.2 pg (27.0-33.0); Mean Corpuscular Volume 84.9 fL (80.0-98.0); Mean Platelet Volume 11.2 fL (9.4-12.4); Monocytes Absolute Auto 0.5 X10*3/uL (0.1-1.2); Monocytes Percent Auto 6.3 % (2-11); Neutrophils Absolute Auto 4.1 x10*3/uL (2.0-8.3); Neutrophils Percent Auto 47.3 % (45-73); Platelet Count 213 X10*3/uL (160-400); Red Blood Count 4.69 X10*6/uL (4.60-5.80); Red Cell Distribution Width 13.1 % (11.0-16.0); White Blood Count 8.6 X10*3/uL (4.8-10.8)
== END 2024-03-19 15:34 | disposition home or self-care (01) ==
LOC: HO.LABR 15:33
PROVIDERS: PCP Internal Medicine; Visit Provider Psychiatry & Neurology Psychiatry
DX: Z79.899 Other long term (current) drug therapy (principal)
CPT/HCPCS: 36415; 85025

== ENCOUNTER 2024-04-14 07:26 | Outpatient (REF) | payer MEDICARE, MEDICAID, SELFPAY ==
[2024-04-14 10:27] LABS: MANUAL DIFF FLAG NO
[2024-04-14 10:34] LABS: Basophils Absolute Auto 0.1 X10*3/uL (0.0-0.2); Basophils Percent Auto 0.9 % (0-2); Eosinophils Absolute Auto 0.7 X10*3/uL (0.0-0.4); Eosinophils Percent Auto 8.9 % (0-4); Hematocrit 41.4 % (42.0-52.0); Hemoglobin 13.7 g/dl (14.0-18.0); Imm Gran Abs Auto 0.02 X10*3/uL (0.00-0.03); Imm Gran Pct Auto 0.2 % (0.0-0.4); Lymphocytes Absolute Auto 2.2 X10*3/uL (1.2-4.9); Lymphocytes Percent Auto 27.4 % (20-40); Mean Corpuscular HGB Conc 33.1 g/dl (31.0-36.0); Mean Corpuscular Volume 87.7 fL (80.0-98.0); Mean Platelet Volume 11.1 fL (9.4-12.4); Monocytes Absolute Auto 0.4 X10*3/uL (0.1-1.2); Neutrophils Absolute Auto 4.7 x10*3/uL (2.0-8.3); Neutrophils Percent Auto 57.6 % (45-73); Platelet Count 200 X10*3/uL (160-400); Red Blood Count 4.72 X10*6/uL (4.60-5.80); Red Cell Distribution Width 12.8 % (11.0-16.0); White Blood Count 8.2 X10*3/uL (4.8-10.8)
== END 2024-04-14 07:27 | disposition home or self-care (01) ==
LOC: HO.10HDL 07:26
PROVIDERS: Visit Provider Psychiatry & Neurology Psychiatry
DX: Z79.899 Other long term (current) drug therapy (principal)
CPT/HCPCS: 36415; 85025

== ENCOUNTER 2024-05-20 07:32 | Outpatient (REF) | payer MEDICARE, MEDICAID, SELFPAY ==
--- OUTSIDE RECORDS SUMMARY | 2024-05-20 07:36 | XMS_ITS | Patient Health Record ---
Author Organization [facility] Address [address] [place] [address] Care Team Providers Care Cut Off Machine Helper Name Role Phone Trevor Conley MD Primary Care Provider Marcus Bonds Unavailable [phone] Allergies Allergen (clinical drug ingredient) Drug/Non Drug Allergy documented on EMR Reaction Allergy Type Onset Date Status amoxicillin Amoxicillin rash oral itchy Drug Allergy Active Penicillin rash oral.,itchy Drug Allergy Active Results Component Value Reference Range Notes HEMOGLOBIN A1C (GLYCOHEMOGLO BIN) Reviewed date:05/13/2024 03:34:12 PM Interpretation: Performing Lab: Notes/Report: HEMOGLOBIN A1C % (HH) 6.4 Reason For Referral No Information Medications Medication SIG (Take, Route, Frequency, Duration) Notes Start Date End Date Status Ascorbic Acid 500 MG 1 tablet Orally Onc e a day Active Sertraline HCl 100 MG 1.5 tablet Orally Once a day Active Benztropine Mesylate 1 MG Orally Twice a day Active Simvastatin 80 MG 1 tablet in the even ing Orally Once a day for 30 day(s) Active clonazePAM 0.5 MG 1 tablet at bedtime Orally Twice a day Active Topiramate 3 tab Active Cogentin 1mg 1tab Twice a day Active Vitamin D 25 MCG (1000 UT) Orally Once a day Active Eliquis Active Ammonium Lactate 12 % 1 application Exte rnally Twice a day for 30 days Active Fiber Active Extra Depth Orthopedic Shoes (1 Pair) with Customized Heat Molded Multidensity Innersoles (3 Pair) as directed Dx: NIDDM (E11.9), Hammertoe Foot Deformity (M20.41,M20.42), Preulcerative Skin Lesion(s) (L85.1) Active Jardiance 25 MG 1 tablet Orally Once a day for 30 day(s) Not-Taking Warfarin Sodium 2.5 MG 1 tablet Orally O nce a day for 30 day(s) Not-Taking Flonase Active glipiZIDE XL 2.5 MG 1 tablet with breakf ast Orally Once a day for 30 day(s) Active Haldol 5mg 1 tab once a day Ac tive metFORMIN HCl 1000 MG 1 tablet with a me al Orally Once a day for 30 day(s) Active Multi Vitamin Once a day Activ e Immunizations Vaccine Route Administration Date Status Comme nts Influenza Unknown 02/02/2022 Administered Social History Tobacco Use: Social History Observation Description Date Details (start date - stop date) Never Smoker NA - NA Alcohol Screen Question Answer Notes Did you have a drink containing alcohol in the p ast year? No Points 0 Interpretation Negative Tobacco use other than smoking: Question Answer Notes Are you an other tobacco user? No Tobacco Control (Standard) Question Answer Notes Tobacco use: Nonsmoker Additional Findings: Tobacco non-user Current no nsmoker Problems Problem Type SNOMED Code ICD Code Onset Dates Problem Status W/U Status Risk Notes Problem Acquired hammer toe of right foot (07321304051011 05) Other hammer toe(s) (acquired), right foot (M20.41) Active confirmed Response to treatment,I mprovement Problem Acquired hammer toe of left foot (22617742380828 03) Other hammer toe(s) (acquired), left foot (M20.42) Active confirmed Response to treatment,I mprovement Problem Type 2 diabetes mellitus without complication (058158613) Type 2 diabetes mellitus without complication (E11.9) Active confirmed Vital Signs Blood pressure diastolic 70 mm Hg 05/13/2024 Height 5ft 6in in 05/13/2024 Blood pressure systolic 118 mm Hg 05/13/2024 Weight 166 lbs 05/13/2024 BMI 26.79 kg/m2 05/13/2024 Procedures Procedure Date Ordered Date Performed Result Body Sit e 72321-[id number] NAIL, 6 OR MORE 06/26/2023 N/A 75436-[id number] NAIL, 6 OR MORE 09/25/2023 N/A 96464-GQONUBM NAIL, 6 OR MORE 05/13/2024 N/A Encounters Encounter Location Date Provider Diagnosis [address] [address] 06/26/2023 Marcus Kyung Pain in right toe(s) M79.674 ; Tinea unguium B35.1 ; Pain in left toe(s) M79.675 ; Type 2 diabetes mellitus without complication E11.9 and Xerosis of skin L85.[address] [address] 09/25/2023 Marcus Kyung Pain in right toe(s) M79.674 ; Tinea unguium B35.1 ; Pain in left toe(s) M79.675 ; Type 2 diabetes mellitus without complication E11.9 ; Xerosis of skin L85.3 ; Other hammer toe(s) (acquired), left foot M20.42 and Other hammer toe(s) (acquired), right foot M20.[address] [address] 05/13/2024 Marcus Kyung Pain in right toe(s) M79.674 ; Tinea unguium B35.1 ; Pain in left toe(s) M79.675 ; Type 2 diabetes mellitus without complication E11.9 ; Other hammer toe(s) (acquired), right foot M20.41 and Other hammer toe(s) (acquired), left foot M20.[address] [address] 12/25/2023 Marcus Kyung [address] [address] 02/18/2024 Marcus Kyung Assessments Encounter Date Diagnosis (ICD Code) Assessment Notes Treatment Notes Treatment Clinical Notes Section Notes 06/26/2023 Tinea unguium (ICD-10 - B35.1) 06/26/2023 Pain in right toe(s) (ICD-10 - M79.674) 09/25/2023 Pain in right toe(s) (ICD-10 - M79.674) 05/13/2024 Pain in right toe(s) (ICD-10 - M79.674) 05/13/2024 Tinea unguium (ICD-10 - B35.1) 05/13/2024 Pain in left toe(s) (ICD-10 - M79.675) 09/25/2023 Tinea unguium (ICD-10 - B35.1) 06/26/2023 Pain in left toe(s) (ICD-10 - M79.675) 09/25/2023 Pain in left toe(s) (ICD-10 - M79.675) 06/26/2023 Type 2 diabetes mellitus without complication (ICD-10 - E11.9) 05/13/2024 Type 2 diabetes mellitus without complication (ICD-10 - E11.9) 09/25/2023 Type 2 diabetes mellitus without complication (ICD-10 - E11.9) 05/13/2024 Other hammer toe(s) (acquired), right foot (ICD-10 - M20.41) Response to treatment,Impro vement 06/26/2023 Xerosis of skin (ICD-10 - L85.3) 05/13/2024 Other hammer toe(s) (acquired), left foot (ICD-10 - M20.42) Response to treatment,Impro vement 09/25/2023 Xerosis of skin (ICD-10 - L85.3) 09/25/2023 Other hammer toe(s) (acquired), left foot (ICD-10 - M20.42) 09/25/2023 Other hammer toe(s) (acquired), right foot (ICD-10 - M20.41) Patient Educated with: DIABETIC FOOT CARE INSTRUCTIONS.p df (DIABETIC FOOT CARE INSTRUCTIONS.p df) Plan Of Treatment Pending Test Test Name Order Date [id number] NAIL, 6 OR MORE 02/03/2020 82880-[id number] NAIL, 6 OR MORE 05/07/2020 77258-[id number] NAIL, 6 OR MORE 08/10/2020 96717-UNIISMG NAIL, 6 OR MORE 11/26/2020 [id number] NAIL, 6 OR MORE 03/04/2021 53217-[id number] NAIL, 6 OR MORE 06/07/2021 64130-[id number] NAIL, 6 OR MORE 09/06/2021 51162-[id number] NAIL, 6 OR MORE 01/20/2022 [id number] NAIL, 6 OR MORE 06/13/2022 61488-[id number] NAIL, 6 OR MORE 09/19/2022 [id number] NAIL, 6 OR MORE 12/26/2022 [id number] NAIL, 6 OR MORE 03/27/2023 [id number] NAIL, 6 OR MORE 06/26/2023 [id number] NAIL, 6 OR MORE 09/25/2023 [id number] NAIL, 6 OR MORE 05/13/2024 Next Appt Details Provider Name:Marcus Tracey , 08/19/2024 04:00:00 PM, [address] [facility], [place], [address], Insurance Providers Payer Name Payer Address Payer Phone Subscriber Number Group Number Insured Name Patient Relationship to Insured Coverage Start Date Coverage End Date Medicare [employer] [address] [facility] [place] [address] [id number] Gautam Simmons Self - patient is the insured Medical (General) History Medical History History ICD Code Anxiety Depression Gout Psychiatric disorder Chicken pox type II diabetes ptsd CAD (Cholesterol) Mild Retardation Surgical History Surgery Date(Month/Year) Hospitalization History Reason Date(Month/Year) [facility] ER sodium too high 12/23
--- OUTSIDE RECORDS SUMMARY | 2024-05-20 07:36 | XMS_ITS ---
Author Organization [facility] Address [address] [place] [address] Care Team Providers Care Equine Vet Name Role Phone Trevor Conley MD Primary Care Provider Unavaila Marcus Almanza Unavailable [phone] Allergies Allergen (clinical drug ingredient) Drug/Non Drug Allergy documented on EMR Reaction Allergy Type Onset Date Status amoxicillin Amoxicillin rash oral itchy Drug Allergy Active Penicillin rash oral.,itchy Drug Allergy Active REASON FOR VISIT At Risk Footcare, Painful Nail(s) aggravated by shoes and causing difficulty standing/walking., ToeIrritation Medications Medication SIG (Take, Route, Frequency, Duration) Notes Start Date End Date Status Vitamin D 25 MCG (1000 UT) Orally Once a day Active Ammonium Lactate 12 % 1 application Exte rnally Twice a day for 30 days Active Extra Depth Orthopedic Shoes (1 Pair) with Customized Heat Molded Multidensity Innersoles (3 Pair) as directed Dx: NIDDM (E11.9), Hammertoe Foot Deformity (M20.41,M20.42), Preulcerative Skin Lesion(s) (L85.1) Active Jardiance 25 MG 1 tablet Orally Once a day for 30 day(s) Not-Taking Warfarin Sodium 2.5 MG 1 tablet Orally O nce a day for 30 day(s) Not-Taking Sertraline HCl 100 MG 1.5 tablet Orally Once a day Active Simvastatin 80 MG 1 tablet in the even ing Orally Once a day for 30 day(s) Active Topiramate 3 tab Active metFORMIN HCl 1000 MG 1 tablet with a me al Orally Once a day for 30 day(s) Active Multi Vitamin Once a day Activ e Eliquis Active Fiber Active Flonase Active glipiZIDE XL 2.5 MG 1 tablet with breakf ast Orally Once a day for 30 day(s) Active Haldol 5mg 1 tab once a day Ac tive Ascorbic Acid 500 MG 1 tablet Orally Onc e a day Active Benztropine Mesylate 1 MG Orally Twice a day Active clonazePAM 0.5 MG 1 tablet at bedtime Orally Twice a day Active Cogentin 1mg 1tab Twice a day Active Social History Tobacco Use: Social History Observation [...] Additional Findings: Tobacco non-user Current no nsmoker Vital Signs Blood pressure systolic 118 mm Hg 05/13/19 25 Blood pressure diastolic 70 mm Hg 025 Height 5ft 6in in 05/13/2024 Weight 166 lbs 05/13/2024 BMI 26.79 kg/m2 05/13/2024 Procedures Procedure Date Ordered Date Performed Result Body Sit e 04504-XOFPGZG NAIL, 6 OR MORE 05/13/2024 N/A Encounters Encounter Location Date Provider Diagnosis [facility] [address] [address] 05/13/2024 Marcus Tracey Pain in right toe(s) M79.674 ; Tinea unguium B35.1 ; Pain in left toe(s) M79.675 ; Type 2 diabetes mellitus without complication E11.9 ; Other hammer toe(s) (acquired), right foot M20.41 and Other hammer toe(s) (acquired), left foot M20.42 Assessments Encounter Date Diagnosis (ICD Code) Assessment Notes Treatment Notes Treatment Clinical Notes Section Notes 05/13/2024 Pain in right toe(s) (ICD-10 - M79.674) 05/13/2024 Tinea unguium (ICD-10 - B35.1) 05/13/2024 Pain in left toe(s) (ICD-10 - M79.675) 05/13/2024 Type 2 diabetes mellitus without complication (ICD-10 - E11.9) 05/13/2024 Other hammer toe(s) (acquired), right foot (ICD-10 - M20.41) Response to treatment,Impro vement 05/13/2024 Other hammer toe(s) (acquired), left foot (ICD-10 - M20.42) Response to treatment,Impro vement Plan Of Treatment Pending Test Test Name Order Date [id number] NAIL, 6 OR MORE 05/13/2024 Next Appt Details Follow Up: prn, Reason: Provider Name:Marcus Tracey , 08/19/2024 04:00:00 PM, [address] [place] [address], [phone], Procedure Notes * Category Sub-Category Detail Notes Debride Nail 6-10 Nail debridement Due to the cl inical pathology outlined in the exam findings, performance of this nail treatment is medically necessary as its management by an unskilled/untrained nonprofessional would put this patients foot and overall health at risk. Therefore, debridement to affected nail(s), as described in exam ( TA, T1, T2, T3, T4, T5, T6, T7, T8, T9 ), was performed exclusively by the physician of record to reduce/remove overall nail length, girth, thickness, subungual debris, and necrotic tissue, by manual and/or electrical means through the use of a nail nipper and/or dremel-type head bone grinder, to a more viable healthy nail plate or bed tissue 6-10 nails in total. Silver nitrate was used for any petechial bleeding as necessary. Definitive antifungal treatment options, both pharmaceutical and surgical, have been reviewed and discussed with the patient. The patient solely prefers the use of intermittent/as needed professional debridement services for their nail condition and understands the need for additional periodic treatments to maintain effectiveness in symptomatic relief - Progress Notes * Moises SIMMONSinDOB:1975 ( 48 yo M)Acc No.[id number]:05/13/2024 Progress Note Patient:?SIMMONS Gautam Provider:?Marcus Tracey DPM :1975???Age:48 Y???Sex:Male Prosper e:05/13/2024 Address:[address] , [address] [facility], [place], [place] Pcp:Trevor Conley MD Subjective: * Chief Complaints: * ???At Risk FootcarePainful N ail(s) aggravated by shoes and causing difficulty standing/walking.Toe Irritation * HPI: ???At Risk footcare:?Pt States Last PCP Visit:?Date?03/17/2024 ???Toe pain:?Treatments:?Rx shoes .? * ROS:?General/Constitutional:?Nausea?denies.?Vomiting?denies.?Hunger Thirst?denies.?Loss appetite?denies.?Chills?denies.?Fatigue?denies.?Fever?denies.?Night Sweats?denies.?Unexplained weight loss?denies.?Unexplained weight gain?denies.?HEENTM:?Dentures?denies.?Dizziness?denies.?Glasses/contacts?denies.?Retinopathy?den ies.?Blurred/double vision?denies.?TMJ?denies.?Discharge/drainage?denies.?Implants?denies.?Sore throat?denies.?Dental implants?denies.?Hard of hearing ?denies.?Difficulty chewing/swallowing/speaking?denies.?Nose bleeds?denies.?Sore mouth?denies.?Respiratory:?On Oxygen?denies.?Pneumonia/pleurisy?denies.?Bronchitis?denies.?Emphysema?denies.?C oughing?denies.?Cough blood?denies.?Shortness of breath?denies.?Wheezing?denies.?Cardiovascular:?Pacemaker?denies.?MVP?denies.?WPW?denies.?CHF?denies.?Heart attack?denies.?Septal defect?denies.?Rapid beat?denies.?Chest pain ?denies.?Atrial Fib.?denies.?Murmur/Palpitations?denies.?Gastrointestinal:?Hemorrhoids?denies.?Stomach/Abdominal pain?denies.?Dark blood stool?denies.?Irritable bowel ?denies.?Constipation?denies.?Diarrhea?denies.?Hematology:?Swelling?denies.?Clots?denies.?Varicose Veins?denies.?Bruising?admits, on anticoagulants.?Bleeding problem?admits, on anticoagulants.?Genitourinary:?Blood urine?denies.?Frequent/Painfu/urination/bladder control?admits.?Kidney stones?denies.?Infection (UTI)?denies.?Nephropathy?denies.?sex trans dis (STD)?denies.?Prostate?denies.?Prostate?denies.?Musculoskeletal:?Hammertoes?admits,?admits.?Bunions?denies,?denies.?Back Pain?denies,?denies.?Muscle Cramps/ Resting?denies,?denies.?Muscle cramps / walking?denies,?denies.?Generalized aches and pains?denies,?denies.?Weakness?denies,?denies.?Integ.:?Lopez?denies,?denies.?Scars?denies,?denies.?Corns/calluses?admits,?admits.? Ingrown nails?admits,?admits.?Painful nails?admits,?admits.?Open Sores?denies,?denies.?Rashes?denies,?denies.?Neurologic:?Difficulty sleeping?denies,?denies.?Brain disorder?denies,?denies.?Numbness?denies,?denies.?Balance t rouble?denies,?denies.?Confusion?denies,?denies.?Fainting/blackouts?denies,?louie es.?Tingling?denies,?denies.?Tremors?denies,?denies.? * Medical History:? * Surgical History:?Payam segura Surgical History * Hospitalization/Major Diagno stic Procedure:?[facility] ER sodium too high 01/15/2020 * Family History:?Mother: carter gilbert, foot problems, diagnosed with Family history of arthritis.?Father: alive, diagnosed with Diabetic - NIDDM.?Maternal Grand Father: poor circulation, cancer, diagnosed with Diabetic - NIDDM.?Siblings: cancer sister.?Paternal Grand Father: diagnosed with Diabetic - NIDDM.?Maternal Grand Mother: diagnosed with Unspecified essential hypertension.? * Social History:?Tobacco Use:?Tobacco use other than smoking?Are you an other tobacco user??No ?Tobacco Control (Standard)?Tobacco use:?Nonsmoker ?Additional Findings: Tobacco non-user?Current nonsmoker ???Drugs/Alcohol:?Drugs?Have you used drugs other than those for medical reasons in the past 12 months??No ?Alcohol Screen?Did you have a drink containing alcohol in the past year??No ?Points?0 ?Interpretation?Negative ???Miscellaneous:?Caffeine: no. ?Children: no. ?Exercise: yes, walking. ?Marital status: single. ?Occupation: Disabled. * Medications:?TakingAscorbic Acid 500 MG Tablet 1 tablet Orally Once a day Benztropine Mesylate 1 MG Tablet Orally Twice a day clonazePAM 0.5 MG Tablet 1 tablet at bedtime Orally Twice a day Cogentin 1mg 1tab Twice a day Eliquis Fiber Flonase glipiZIDE XL 2.5 MG Tablet Extended Release 24 Hour 1 tablet with breakfast Orally Once a day Haldol 5mg 1 tab once a day metFORMIN HCl 1000 MG Tablet 1 tablet with a meal Orally Once a day Multi Vitamin Once a day Sertraline HCl 100 MG Tablet 1.5 tablet Orally Once a day Simvastatin 80 MG Tablet 1 tablet in the evening Orally Once a day Topiramate 3 tab Vitamin D 25 MCG (1000 UT) Tablet Orally Once a day Ammonium Lactate 12 % Cream 1 application Externally Twice a day Extra Depth Orthopedic Shoes (1 Pair) with Customized Heat Molded Multidensity Innersoles (3 Pair) as directed Dx: NIDDM (E11.9), Hammertoe Foot Deformity (M20.41,M20.42), Preulcerative Skin Lesion(s) (L85.1) Taking Ascorbic Acid 500 MG Tablet 1 tablet Orally Once a day Taking Benztropine Mesylate 1 MG Tablet Orally Twice a day Taking clonazePAM 0.5 MG Tablet 1 tablet at bedtime Orally Twice a day Taking Cogentin 1mg 1tab Twice a day Taking Eliquis Taking Fiber Taking Flonase Taking glipiZIDE XL 2.5 MG Tablet Extended Release 24 Hour 1 tablet with breakfast Orally Once a day Taking Haldol 5mg 1 tab once a day Taking metFORMIN HCl 1000 MG Tablet 1 tablet with a meal Orally Once a day Taking Multi Vitamin Once a day Taking Sertraline HCl 100 MG Tablet 1.5 tablet Orally Once a day Taking Simvastatin 80 MG Tablet 1 tablet in the evening Orally Once a day Taking Topiramate 3 tab Taking Vitamin D 25 MCG (1000 UT) Tablet Orally Once a day Taking Ammonium Lactate 12 % Cream 1 application Externally Twice a day Taking Extra Depth Orthopedic Shoes (1 Pair) with Customized Heat Molded Multidensity Innersoles (3 Pair) as directed Dx: NIDDM (E11.9), Hammertoe Foot Deformity (M20.41,M20.42), Preulcerative Skin Lesion(s) (L85.1) Not-Taking/PRNJardiance 25 MG Tablet 1 tablet Orally Once a day Warfarin Sodium 2.5 MG Tablet 1 tablet Orally Once a day Medication List reviewed and reconciled with the patientNot-Taking/PRN Jardiance 25 MG Tablet 1 tablet Orally Once a day Not-Taking/PRN Warfarin Sodium 2.5 MG Tablet 1 tablet Orally Once a day Medication List reviewed and reconciled with the patient * Allergies:?Amoxicillin: rash oral itchyPenicillin: rash oral.,itchyyes[Allergies Verified] Objective: * Vitals:?Ht:5ft 6in, Wt:166, BMI:26.79, Shoe size:9.5W, BP:118/70mm Hg, BS:286, Ht-cm: 167.64 cm, Wt-k.3 kg. * ???Past Orders: ???Lab:HEMOGLOBIN A1C (GLYCO HEMOGLOBIN) (Order Date - 02/22/2024) (Collection Date & Time - 04/24/2024 03:33 PM) ? Value Reference Range ?HEMOGLOBIN A1C % (HH) 6.4 * Examination: ???Ophthalmology Referral: ?DIABETES EYE EXAM?Nails: ?NAILS are:?Elongated, overgrown, dystrophic, lytic, greater than 3mm thick, discolored and friable with crumbly malodorous subungual debris, with pain on palpation, TA, T1, T2, T3, T4, T5, T6, T7, T8, T9.?Orthopedic: ?DIGITAL DEFORMITIES:?Digital contracture, PIPJ, 2-5 B/L, incompl-reducible to push-up test, no over, nor underlapping ,no longer, with evidence of shoe producing skin irritation.?FOOTWEAR:?good condition, exhibit proper fit and accommodation for pedal deformities. OT were inspected and noted to be worn, but in good condition giving proper support at the present time.?General Examination: ?Footwear Evaluation? Assessment: * Assessment: 1.?Pain in right toe(s) - M7 9.674???2.?Tinea unguium - B35.1 (Primary)???3.?Pain in left toe(s) - M79.675???4.?Type 2 diabetes mellitus without complication - E11.9???5.?Other hammer toe(s) (acquired), right foot - M20.41???Specify :Chronic problem, Stable (1=3,2=4)???Notes :Response to treatment,Improvement???6.?Other hammer toe(s) (acquired), left foot - M20.42???Specify :Chronic problem, Stable (1=3,2=4)???Notes :Response to treatment,Improvement??? Plan: * Treatment: * Procedures:?Debride Nail 6-10:?Nail debridement?Due to the clinical pathology outlined in the exam findings, performance of this nail treatment is medically necessary as its management by an unskilled/untrained nonprofessional would put this patients foot and overall health at risk. Therefore, debridement to affected nail(s), as described in exam ( TA, T1, T2, T3, T4, T5, T6, T7, T8, T9 ), was performed exclusively by the physician of record to reduce/remove overall nail length, girth, thickness, subungual debris, and necrotic tissue, by manual and/or electrical means through the use of a nail nipper and/or dremel-type head bone grinder, to a more viable healthy nail plate or bed tissue 6- 10 nails in total. Silver nitrate was used for any petechial bleeding as necessary. Definitive antifungal treatment options, both pharmaceutical and surgical, have been reviewed and discussed with the patient. The patient solely prefers the use of intermittent/as needed professional debridement services for their nail condition and understands the need for additional periodic treatments to maintain effectiveness in symptomatic relief - [id number].? * Procedure Codes:?84246 DEBRI DE NAIL, 6 OR [id number] Pall serv during david * Preventive Medicine:? ??Counseling:?Discussion:?-13: Office or other outpatient visit for the evaluation and management of an established patient, which required a medically appropriate history and/or examination and LOW level of DECISION MAKING for: 1 STABLE ACUTE UNCOMPLICATED PROBLEM, 2 OR MORE MINOR PROBLEMS, OR 1 STABLE CHRONIC PROBLEM, THAT POSE(S) A LOW RISK FOR MORBIDITY/MORTALITY. The visit on the day of the encounter encompassed interpreting the data and educating the patient as to the nature of their condition, treatment options available according to their individual PMH, meds, allergies, and overall health/living conditions, as well as any potential risks or complications that may occur from a failure to adhere to, and participate in, the recommended course of therapy. The discussion included a complete verbal, and/or written explanation of the examination results, any x-rays taken, the proposed diagnosis, and outline of the treatment plan. A schedule for future care needs was also explained. The patient verbalized an understanding of the instructions at this time and agreed to be an active participant in their treatment. If the patient should think of any questions or concerns after the visit, I have encouraged the patient to call the office.?Shoe Gear Counseling:?A thorough inspection of the patients Rxed shoegear and inserts was performed and findings communicated. We reviewed the many important medical advantages for adhering to regularly wearing these shoe and insert accomidative devices daily as well as reviewed the fact that a failure in accepting these recommedations may be deleterious, unable to prevent, and disadvantagely result in, many pedal complications such as skin irritation, skin ulceration, infection, and even loss of toe/foot/leg/or even their life. Time was also spent reviewing the proper footcare techniques including daily skin moisturization, daily foot inspection for any interruption in skin integrity, open lesions, or sign of infection such as redness/malodor/drainage/swelling as well as daily shoe inspection for the presence of internal foreign bodies and shoe as well as insert wear. Patient questions re: shoes, inserts, and self foot inspections were answered to their satisfaction as the patient verbally confirmed a full understanding of the above information.? ??Screening/Special Tests:?Fall Risk?Screening:?No falls in the past year ?FALLS: Screening for Future Fall Risk?Have you had any falls with injury in the past year??No * Follow Up:?prn * Images: * Sign off status: Completed true * Provider:?Marcus Tracey DPM Date:?2024 Generated for Luz burris/Danny/Nadine on:?05/20/2024 07:36 AM EST History and Physical Notes * HPI (History of Present Illness) Category Sub-Category Detail Notes Category Not es Toe pain Treatments: Rx shoes At Risk footcare Pt States Last PCP Visit: Date: 4 Examination Category Sub-Category Detail Notes Category Not es Orthopedic FOOTWEAR: good condition, exhibit proper fit and accommodation for pedal deformities. OT were inspected and noted to be worn, but in good condition giving proper support at the present time DIGITAL DEFORMITIES: Digital contracture , PIPJ, 2-5 B/L, incompl-reducible to push-up test, no over, nor underlapping ,no longer, with evidence of shoe producing skin irritation General Examination Footwear Evaluation Footwear Evaluatio n performed:: Yes Ophthalmology Referral DIABETES EYE EXAM Procedure Perform ed:: Yes ?Date of Exam Performed: 12/24/2023 Diabetic Retinopathy Screening:: Yes Findings of Diabetic Eye Exam:: no retin opathy Nails NAILS are: Elongated, overg rown, dystrophic, lytic, greater than 3mm thick, discolored and friable with crumbly malodorous subungual debris, with pain on palpation, TA, T1, T2, T3, T4, T5, T6, T7, T8, T9
--- OUTSIDE RECORDS SUMMARY | 2024-05-20 07:36 | XMS_ITS | Clinical Summary ---
Author Organization [facility] [employer] Address [address] [place] [address] [address] [place] [address] Care Team Providers Care Zoology Technical Officer Name Role Phone Unavailable Primary Care Provider Unavailabl e Allergies No known active allergies Medications clindamycin (Cleocin) 150 MG capsule 2 caps one hour prior to dental procedure 4 capsule Active Social History Tobacco Use Types Packs/Day Years Used Date Smoking Tobacco: Never Sex and Gender Information Value Date Recorded Sex Assigned at Male 02/20/2022 10:22 AM EDT Legal Sex Male 10:22 AM EDT Gender Identity Male 02/20/2022 10:22 AM EDT Sexual Orientation Choose not to disclose 2021 10:22 AM EDT Last Filed Vital Signs Vital Sign Reading Time Taken Comments Blood Pressure 128/84 04/14/2019 12:12 AM EST Pulse 100 04/14/2019 12:12 AM EST Temperature - - Respiratory Rate - - Oxygen Saturation - - Inhaled Oxygen Concentration - - Weight - - Height - - Body Mass Index - - Plan of Treatment Health Maintenance Due Date Last Done Comments CT Colonography 1977 Colonoscopy 1977 Colorectal Cancer Screening 1975 Depression Screening 1977 FIT DNA/Cologuard 1977 FIT 1977 FOBT 1975 HIV Screening 1975 Lipid Panel 1977 SDOH Screening 1977 Sigmoidoscopy 1977 Alcohol/Substance Use Screening 1989 Family Planning (PISQ) 1992 Hepatitis C Screening 07/05/1995 DTaP/Tdap/Td Vaccines (1 - Tdap) 1996 Hepatitis B Vaccines (1 of 3 - 19+ 3-dose series) 1996 Dental Prophylaxis 03/23/2022 09/20/2021, 1 06/15/2018, 05/11/2017, Additional history exists Dental Oral Exam 12/19/2023 06/19/2023, 03/2022, 04/14/2019, Additional history exists COVID-19 Vaccine ( season) 2023 05/02/2021, 08/19/2020, 07/29/2020 Influenza Vaccine (#1) 2023 Tobacco Screening 06/19/2024 06/19/2023 Dental X-Ray: Bitewings 06/20/2024 06/19/19 24, 09/01/2021, 04/14/2019, Additional history exists Dental X-Ray: Full Mouth 06/20/2026 024, 09/01/2021, 05/17/2016 Zoster Vaccines (1 of 2) 07/05/2027 RSV Patients and Patients Aged 60 years or older (1 - 1-dose 75+ series) 2052 HIB Vaccines Aged Out No longer eligi ble based on patient's age to complete this topic HPV Vaccines Aged Out No longer eligi ble based on patient's age to complete this topic Hepatitis A Vaccines Aged Out No long er eligible based on patient's age to complete this topic IPV Vaccines Aged Out No longer eligi ble based on patient's age to complete this topic Meningococcal Vaccine Aged Out No urbano jocelyn eligible based on patient's age to complete this topic Pneumococcal Vaccine: Pediatrics (0 to 5 Years) and At-Risk Patients (6 to 64 Years) Aged Out No longer eligible based on patient's age to complete this topic RSV under 20 months Aged Out No longe r eligible based on patient's age to complete this topic Rotavirus Vaccines Aged Out No longer eligible based on patient's age to complete this topic Procedures Procedure Name Priority Date/Time Associated Diagnosis Comments DIAGNOSTIC - DIAGNOSTIC IMAGING - INTRAORAL - COMPREHENSIVE SERIES OF RADIOGRAPHIC IMAGES Routine 06/19/2023 1:30 PM EST COMPREHENSIVE ORAL EVALUATION - NEW OR ESTABLISHED PATIENT Routine 06/19/2023 1:30 PM EST PROPHYLAXIS - ADULT Routine 09/20/2021 1 2:00 AM EDT from Last 3 Months or Most Recently Relevant to Health Maintenance Insurance [facility] AD[facility]
--- OUTSIDE RECORDS SUMMARY | 2024-05-20 07:36 | XMS_ITS ---
Author Organization [facility] Address [address] [place] [address] Care Team Providers Care Sales Research Analyst Name Role Phone Trevor Conley MD Primary Care Provider UnavailMarcus Huber [phone] REASON FOR VISIT Reschedule Encounters Encounter Location Date Provider Diagnosis [address] [address] 02/18/2024 Marcus Tracey Plan Of Treatment Next Appt Details Provider Name:Marcus Tracey , 08/19/2024 04:00:00 PM, [address] [place] [address], [phone], Progress Notes * Moises SIMMONSinDOB:1975 ( 48 yo M)Acc No.[id number]:02/18/2024 Patient:?Gautam Simmons :1975???Age:48 Y???Sex:Male Address:[address] , [address] [place], [address] * true * Date:? Generated for Printi ng/Faxing/eTransmitting on:?05/20/2024 07:36 AM EST
--- OUTSIDE RECORDS SUMMARY | 2024-05-20 07:36 | XMS_ITS ---
Author Organization [facility] Address [address] [place] [phone] Care Team Providers Care Clerical Production Worker Name Role Phone Trevor Conley MD Primary Care Provider Naveen Flores Jr REASON FOR VISIT eliquis note Encounters Encounter Location Date Provider Diagnosis [facility] [address] [place] [phone] 05/19/2024 Naveen Yang Jr PLAN OF TREATMENT Next Appt Details Provider Name:Naveen whitaker Jr, 05/23/2024 11:40:00 AM, [address] [place] [address] , [place], [place], [phone],
--- OUTSIDE RECORDS SUMMARY | 2024-05-20 07:37 | XMS_ITS ---
Author Organization [facility] Address [address] [place] [address] Care Team Providers Care Retail Planner Name Role Phone Trevor Conley MD Primary Care Provider Marcus Bonds Unavailable [phone] Encounters Encounter Location Date Provider Diagnosis [facility] [address] [place] [address] 02/19/2024 Marcus Tracey Plan Of Treatment Next Appt Details Provider Name:Marcus Tracey , 08/19/2024 04:00:00 PM, [address] [place] [address], [phone], Progress Notes * ANA MoisesKarenOB:1975 ( 48 yo M)Acc No.[id number]:02/19/2024 Progress Note Patient:?Gautam SIMMONS Provider:?Marcus Tracey DPM :1975???Age:48 Y???Sex:Male Prosper e:02/19/2024 Address:[address] , [address] [place], [place] [id number] Pcp:Trevor Conley MD Subjective: * Chief Complaints: * ??? * Medical History:? Objective: * Vitals:? Assessment: Plan: * Treatment: * Images: * The named appointment provid er may or may not be the originator of this progress note, and it is not deemed complete until electronically signed by the appointment provider. Sign off status: Pending * Provider:?Marcus Tracey DPM Date:?2023 Generated for Luz burris/Danny/Nadine on:?05/20/2024 07:36 AM EST
--- OUTSIDE RECORDS SUMMARY | 2024-05-20 07:37 | XMS_ITS ---
Author Organization [facility] Address [address] [facility] [address] [place] [phone] Care Team Providers Care Family Development Extension Specialist Name Role Phone Trevor Conley MD Primary Care Provider UnavailNaveen Morrison Jr REASON FOR VISIT nurse order Encounters Encounter Location Date Provider Diagnosis [facility] [address] [facility] [address] [place] [phone] 05/14/2024 Naveen Yang Jr PLAN OF TREATMENT Next Appt Details Provider Name:Naveen whitaker Jr, 05/23/2024 11:40:00 AM, [address] [place] [address] , [place], [place], [phone],
--- OUTSIDE RECORDS SUMMARY | 2024-05-20 07:37 | XMS_ITS | Patient Health Record ---
Author Organization [facility] Address [address] [place] [address] Care Team Providers Care Carpentry Foreman Name Role Phone Trevor Conley MD Primary Care Provider Naveen Flores Jr Unavailable [phone] ALLERGIES Allergen (clinical drug ingredient) Drug/Non Drug Allergy documented on EMR Reaction Allergy Type Onset Date Status Penicillin Unknown Drug Allergy Active REASON FOR REFERRAL No Information MEDICATIONS Medication SIG (Take, Route, Frequency, Duration) Notes Start Date End Date Status D3-1000 25 MCG (1000 UT) TAKE 1 CAPSULE BY MOUTH EVERY DAY Oral for 90 Active cloZAPine 100 MG TAKE 1/2 TABLET ORAL LY IN THE MORNING AND 3 TABS AT BEDTIME. Oral for 30 Active Allopurinol 100 MG TAKE 1 TABLET BY JANET TH EVERY DAY Oral for 90 Active Eliquis 2.5 MG TAKE 1 TABLET BY JANET TH TWICE A DAY Oral for 90 Active Fiber Active Vitamin C 500 MG TAKE 1 TABLET BY JANET TH EVERY DAY Oral for 90 Active clonazePAM 0.5 MG TAKE 1 TABLET BY JANET TH TWICE A DAY Oral for 30 Active Flonase Allergy Relief 50 MCG/ACT 1 spray in each nostril Nasally Twice a day for 30 day(s) 05/01/2024 Active metFORMIN HCl 1000 MG TAKE 1 TABLET BY M OUTH TWICE A DAY DIRECTED Oral for 90 Active Simvastatin 80 MG TAKE 1 TABLET BY JANET TH EVERY DAY Oral for 90 Active Benztropine Mesylate 1 MG TAKE 1 TABLET BY MOUTH TWICE A DAY Oral for 30 Active Lantus SoloStar 100 UNIT/ML INJECT 15 UNITS (0.15 ML) SUBCUTANEOUSLY DAILY IN THE MORNING Subcutaneous for 90 Unknown Daily-Vivien Multivitamin - TAKE 1 TABLET BY MOUTH EVERY DAY Oral for 90 Active Insulin Lispro (1 Unit Dial) 100 UNIT/ML PLEASE SEE ATTACHED FOR DETAILED DIRECTIONS Subcutaneous for 30 Active MiraLax (colon prep) 17 GM/SCOOP mixed with Gatorade or Crystal Light Orally begin at 5:00 p.m. the day before the procedure for 1 day 05/01/2024 Active Haloperidol 5 MG TAKE 1/2 TAB BY MOUT H IN THE MORNING AND 1 TAB AT BEDTIME. Oral for 30 Active Sertraline HCl 100 MG TAKE 1 AND 1/2 TAB LETS DAILY BY MOUTH DIRECTED Oral for 30 Active Lantus SoloStar 100 UNIT/ML INJECT 15 UNITS (0.15 ML) SUBCUTANEOUSLY DAILY IN THE MORNING Subcutaneous for 90 Not-Taking SOCIAL HISTORY Tobacco Use: Social History Observation Description Date Details (start date - stop date) Never Smoker NA - NA Sex Assigned At : Social History Observation Description Sex Assigned At Unknown Tobacco Use/Smoking Question Answer Notes Patient is a nonsmoker Alcohol Screen Question Answer Notes Did you have a drink containing alcohol in the p ast year? No Points 0 Interpretation Negative PROBLEMS Problem Type ICD Code Onset Dates Problem Status W/U Status Risk SNOMED Code Notes Problem Colon cancer screening (Z12.11) Active confirmed 088477223 Problem Long-term current use of high risk medication other than anticoagulant (Z79.899) Active confirmed 276991047 Problem intermediate (current) use of anticoagulants (Z79.01) Active confirmed 433530905 VITAL SIGNS Blood pressure diastolic 00 mm Hg 05/01/2024 Height 5 ft 7 in in 05/01/2024 Blood pressure systolic 00 mm Hg 05/01/2024 Weight 171 lbs 05/01/2024 BMI 26.78 kg/m2 05/01/2024 Encounters Encounter Location Date Provider Diagnosis [facility] [address] [place] [phone] 05/01/2024 Naveen Yang Jr Colon cancer screening Z12.11 ; Long-term current use of high risk medication other than anticoagulant Z79.899 and intermediate (current) use of anticoagulants Z79.01 [facility] [address] [place] [phone] 05/14/2024 Naveen Yang Jr [facility] [address] [place] [phone] 05/19/2024 Naveen Yang Jr ASSESSMENTS Encounter Date Diagnosis Assessment Notes Treatment Notes Treatment Clinical Notes 05/01/2024 Colon cancer screening (ICD-10 - Z12.11) Colonoscopy material was printed 05/01/2024 Long-term current us e of high risk medication other than anticoagulant (ICD-10 - Z79.899) 05/01/2024 intermodal owner operator truck driver (current) use of anticoagulants (ICD-10 - Z79.01) PLAN OF TREATMENT Future Test Test Name Order Date COLONOSCOPY 05/01/2024 Next Appt Details Provider Name:Naveen whitaker Jr, 05/23/2024 11:40:00 AM, [address] [place] [address] , [place], [place], [phone], Insurance Providers Payer Name Payer Address Payer Phone Subscriber Number Group Number Insured Name Patient Relationship to Insured Coverage Start Date Coverage End Date MEDICARE OF [place] [address] [facility] [place] [address] [phone] [id number] FERMIN PEREZ Self - patient is the insured MEDICAID OF [facility] [address] [place] [address] [id number] FERMIN PEREZ Self - patient is the insured MEDICAL (GENERAL) HISTORY Medical History History ICD Code Diabetes mellitus type 2 Pulmonary embolus Schizoaffective disorder bipolar disorder Intellectual disability PTSD Hyperlipidemia Surgical History Surgery Date(Month/Year) Excision of right axillary lesion
--- OUTSIDE RECORDS SUMMARY | 2024-05-20 07:37 | XMS_ITS | Encounter Summary ---
Author Organization [facility] Address [address] [facility] 7t [place] [address] Care Team Providers Care Delicatessen Clerk Name Role Phone Unavailable Primary Care Provider Unavailabl e Encounter Details Date Type Department Care Team (Latest Contact Info) Description 04/14/2019 Abstract C CONVERSIONS Dental, Provider, DDS Social History Tobacco Use Types Packs/Day Years Used Date Smoking Tobacco: Never Assessed Sex and Gender Information Value Date Recorded Sex Assigned at Male 02/20/2022 10:22 AM EDT Legal Sex Male 10:22 AM EDT Gender Identity Male 02/20/2022 10:22 AM EDT Sexual Orientation Choose not to disclose 2021 10:22 AM EDT documented as of this encounter Plan of Treatment Not on file documented as of this encounter Visit Diagnoses Not on filedocumented in this encounter
--- OUTSIDE RECORDS SUMMARY | 2024-05-20 07:37 | XMS_ITS ---
Author Organization [facility] Address [address] [place] [phone] Care Team Providers Care Welder Tech Name Role Phone Trevor Conley MD Primary Care Provider Naveen Flores Jr Unavailable ALLERGIES Allergen (clinical drug ingredient) Drug/Non Drug Allergy documented on EMR Reaction Allergy Type Onset Date Status Penicillin Unknown Drug Allergy Active REASON FOR VISIT Patient presents today for a SCREENING COLON MEDICATIONS Medication SIG (Take, Route, Frequency, Duration) Notes Start Date End Date Status D3-1000 25 MCG (1000 UT) TAKE 1 CAPSULE BY MOUTH EVERY DAY Oral for 90 Active Eliquis 2.5 MG TAKE 1 TABLET BY JANET TH TWICE A DAY Oral for 90 Active Vitamin C 500 MG TAKE 1 TABLET BY JANET TH EVERY DAY Oral for 90 Active Simvastatin 80 MG TAKE 1 TABLET BY JANET TH EVERY DAY Oral for 90 Active MiraLax (colon prep) 17 GM/SCOOP mixed with Gatorade or Crystal Light Orally begin at 5:00 p.m. the day before the procedure for 1 day 05/01/2024 Active cloZAPine 100 MG TAKE 1/2 TABLET ORAL LY IN THE MORNING AND 3 TABS AT BEDTIME. Oral for 30 Active Benztropine Mesylate 1 MG TAKE 1 TABLET BY MOUTH TWICE A DAY Oral for 30 Active Haloperidol 5 MG TAKE 1/2 TAB BY MOUT H IN THE MORNING AND 1 TAB AT BEDTIME. Oral for 30 Active Sertraline HCl 100 MG TAKE 1 AND 1/2 TAB LETS DAILY BY MOUTH DIRECTED Oral for 30 Active Lantus SoloStar 100 UNIT/ML INJECT 15 UNITS (0.15 ML) SUBCUTANEOUSLY DAILY IN THE MORNING Subcutaneous for 90 Not-Taking Allopurinol 100 MG TAKE 1 TABLET BY JANET TH EVERY DAY Oral for 90 Active Fiber Active clonazePAM 0.5 MG TAKE 1 TABLET BY JANET TH TWICE A DAY Oral for 30 Active metFORMIN HCl 1000 MG TAKE 1 TABLET BY M OUTH TWICE A DAY DIRECTED Oral for 90 Active Daily-Vivien Multivitamin - TAKE 1 TABLET BY MOUTH EVERY DAY Oral for 90 Active Flonase Allergy Relief 50 MCG/ACT 1 spray in each nostril Nasally Twice a day for 30 day(s) 05/01/2024 Active Lantus SoloStar 100 UNIT/ML INJECT 15 UNITS (0.15 ML) SUBCUTANEOUSLY DAILY IN THE MORNING Subcutaneous for 90 Unknown Insulin Lispro (1 Unit Dial) 100 UNIT/ML PLEASE SEE ATTACHED FOR DETAILED DIRECTIONS Subcutaneous for 30 Active SOCIAL HISTORY Tobacco Use: Social History Observation [...] Problem Colon cancer screening (Z12.11) Active confirmed 054348557 Problem Long-term current use of high risk medication other than anticoagulant (Z79.899) Active confirmed 806454716 Problem long term care phlebotomist (current) use of anticoagulants (Z79.01) Active confirmed 136132842 VITAL SIGNS BMI 26.78 kg/m2 05/01/2024 Blood pressure systolic 00 mm Hg 05/01/19 25 Blood pressure diastolic 00 mm Hg 025 Height 5 ft 7 in in 05/01/2024 Weight 171 lbs 05/01/2024 Encounters Encounter Location Date Provider Diagnosis [facility] [address] [place] [address] 05/01/2024 Naveen Yang Jr Colon cancer screening Z12.11 ; Long-term current use of high risk medication other than anticoagulant Z79.899 and custodial (current) use of anticoagulants Z79.01 ASSESSMENTS Encounter Date Diagnosis Assessment Notes Treatment Notes Treatment Clinical Notes 05/01/2024 Colon cancer screening (ICD-10 - Z12.11) Colonoscopy material was printed 05/01/2024 Long-term current us e of high risk medication other than anticoagulant (ICD-10 - Z79.899) 05/01/2024 custodial (current) use of anticoagulants (ICD-10 - Z79.01) PLAN OF TREATMENT Medication Medication Name Sig Start Date Stop Date Notes MiraLax (colon prep) 17 GM/SCOOP mixed with Gatorade or Crystal Light Orally begin at 5:00 p.m. the day before the procedure for 1 day 05/01/2024 Treatment Notes Assessment Notes Colon cancer screening Colonoscopy mater ial was printed Future Test Test Name Order Date COLONOSCOPY 05/01/2024 Next Appt Details Follow Up: 1 Year, Reason: Provider Name:Naveen whitaker Jr, 05/23/2024 11:40:00 AM, [address] [place] [address] , [place], [place], [phone], Progress Notes * Examination Category Sub-Category Detail Notes General Examination GENERAL APPEARANCE: in no ac [place] distress HEAD: normocephalic EYES: sclera non-icteric NECK/THYROID: no lymphadenopathy HEART: S1, S2 normal, no mu rmurs CHEST: normal shape and exp ansion LUNGS: clear to auscultatio n bilaterally ABDOMEN: soft, nontender, non distended, bowel sounds present, no organomegaly SKIN: anicteric EXTREMITIES: no clubbing, cyanosi s, or edema PSYCH: cognitive function i ntact ORAL CAVITY: mucosa moist
[2024-05-20 10:31] LABS: MANUAL DIFF FLAG NO
[2024-05-20 10:33] LABS: Basophils Absolute Auto 0.1 X10*3/uL (0.0-0.2); Basophils Percent Auto 0.8 % (0-2); Eosinophils Absolute Auto 0.6 X10*3/uL (0.0-0.4); Eosinophils Percent Auto 8.4 % (0-4); Hematocrit 41.2 % (42.0-52.0); Hemoglobin 13.9 g/dl (14.0-18.0); Imm Gran Abs Auto 0.01 X10*3/uL (0.00-0.03); Imm Gran Pct Auto 0.1 % (0.0-0.4); Lymphocytes Absolute Auto 2.2 X10*3/uL (1.2-4.9); Lymphocytes Percent Auto 29.4 % (20-40); Mean Corpuscular HGB Conc 33.7 g/dl (31.0-36.0); Mean Corpuscular Hemoglobin 28.6 pg (27.0-33.0); Mean Corpuscular Volume 84.8 fL (80.0-98.0); Mean Platelet Volume 10.9 fL (9.4-12.4); Monocytes Absolute Auto 0.4 X10*3/uL (0.1-1.2); Monocytes Percent Auto 4.8 % (2-11); Neutrophils Absolute Auto 4.3 x10*3/uL (2.0-8.3); Neutrophils Percent Auto 56.5 % (45-73); Platelet Count 221 X10*3/uL (160-400); Red Blood Count 4.86 X10*6/uL (4.60-5.80); Red Cell Distribution Width 13.5 % (11.0-16.0); White Blood Count 7.6 X10*3/uL (4.8-10.8)
== END 2024-05-20 07:33 | disposition home or self-care (01) ==
LOC: HO.10HDL 07:32
PROVIDERS: Visit Provider Psychiatry & Neurology Psychiatry
DX: Z79.899 Other long term (current) drug therapy (principal)
CPT/HCPCS: 36415; 85025

== ENCOUNTER 2024-07-03 15:21 | Outpatient (REF) | payer MEDICARE, MEDICAID, SELFPAY ==
[2024-07-03 15:37] LABS: MANUAL DIFF FLAG NO
[2024-07-03 15:48] LABS: Basophils Absolute Auto 0.1 X10*3/uL (0.0-0.2); Basophils Percent Auto 0.6 % (0-2); Eosinophils Absolute Auto 0.7 X10*3/uL (0.0-0.4); Eosinophils Percent Auto 7.6 % (0-4); Hematocrit 39.4 % (42.0-52.0); Hemoglobin 13.4 g/dl (14.0-18.0); Imm Gran Abs Auto 0.03 X10*3/uL (0.00-0.03); Imm Gran Pct Auto 0.3 % (0.0-0.4); Lymphocytes Percent Auto 32.5 % (20-40); Mean Corpuscular Hemoglobin 28.3 pg (27.0-33.0); Mean Corpuscular Volume 83.3 fL (80.0-98.0); Mean Platelet Volume 10.6 fL (9.4-12.4); Monocytes Absolute Auto 0.6 X10*3/uL (0.1-1.2); Monocytes Percent Auto 6.3 % (2-11); Neutrophils Absolute Auto 4.8 x10*3/uL (2.0-8.3); Neutrophils Percent Auto 52.7 % (45-73); Platelet Count 173 X10*3/uL (160-400); Red Blood Count 4.73 X10*6/uL (4.60-5.80); Red Cell Distribution Width 13.3 % (11.0-16.0); White Blood Count 9.1 X10*3/uL (4.8-10.8)
--- OUTSIDE RECORDS SUMMARY | 2024-07-03 19:00 | XMS_ITS ---
Author Organization [facility] Address [address] [place] [address] Care Team Providers Care Infection Control Rn Name Role Phone Trevor Conley MD Primary Care Provider Naveen Flores Jr [phone] REASON FOR VISIT eliquis note Encounters Encounter Location Date Provider Diagnosis [facility] [address] [place] [address] 05/19/2024 Naveen Yang Jr Plan Of Treatment No Information Progress Notes * FERMIN PEREZ ADOB:1975 (48 yo M)Acc No.[id number]:05/19/2024 Patient:?FREMIN PEREZ :1975???Age:48 Y???Sex:Male Address:[address] [place] [id number] * true * Date:? Generated for Luz burris/Danny/eTransmitting on:?07/03/2024 07:00 PM EDT
--- OUTSIDE RECORDS SUMMARY | 2024-07-03 19:00 | XMS_ITS | Patient Health Record ---
Author Organization [facility] Address [address] [place] [address] Care Team Providers Care Handbag Operator Name Role Phone Trevor Conley MD Primary Care Provider Marcus Bonds Unavailable [phone] Allergies Allergen (clinical drug ingredient) Drug/Non Drug [...] Problem Acquired hammer toe of right foot (68369840512735 05) Other hammer toe(s) (acquired), right foot (M20.41) Active confirmed Response to treatment,I mprovement Problem Acquired hammer toe of left foot (87280071610900 03) Other hammer toe(s) (acquired), left foot (M20.42) Active confirmed Response to treatment,I mprovement Problem Type 2 diabetes mellitus without complication (105968219) Type 2 diabetes mellitus without complication (E11.9) Active confirmed Vital Signs Blood pressure diastolic 70 mm Hg 05/13/2024 Height 5ft 6in in 05/13/2024 Blood pressure systolic 118 mm Hg 05/13/2024 Weight 166 lbs 05/13/2024 BMI 26.79 kg/m2 05/13/2024 Procedures Procedure Date Ordered Date Performed Result Body Sit e 00043-EOMBFXS NAIL, 6 OR MORE 09/25/2023 N/A [id number] NAIL, 6 OR MORE 05/13/2024 N/A Encounters Encounter Location Date Provider Diagnosis [facility] [address] [place] [address] 09/25/2023 Marcusblaze Tracey Pain in right toe(s) M79.674 ; Tinea unguium B35.1 ; Pain in left toe(s) M79.675 ; Type 2 diabetes mellitus without complication E11.9 ; Xerosis of skin L85.3 ; Other hammer toe(s) (acquired), left foot M20.42 and Other hammer toe(s) (acquired), right foot M20.[address] [address] 05/13/2024 Marcus Tracey Pain in right toe(s) M79.674 ; Tinea unguium B35.1 ; Pain in left toe(s) M79.675 ; Type 2 diabetes mellitus without complication E11.9 ; Other hammer toe(s) (acquired), right foot M20.41 and Other hammer toe(s) (acquired), left foot M20.[address] [address] 12/25/2023 Marcus Tracey [address] [address] 02/18/2024 Marcus Tracey Assessments Encounter Date Diagnosis (ICD Code) Assessment Notes Treatment Notes Treatment Clinical Notes Section Notes 09/25/2023 Pain in right toe(s) (ICD-10 - M79.674) 05/13/2024 Pain in right toe(s) (ICD-10 - M79.674) 05/13/2024 Tinea unguium (ICD-10 - B35.1) 05/13/2024 Pain in left toe(s) (ICD-10 - M79.675) 09/25/2023 Tinea unguium (ICD-10 - B35.1) 09/25/2023 Pain in left toe(s) (ICD-10 - [...] Treatment Pending Test Test Name Order Date [id number] NAIL, 6 OR MORE 02/03/2020 01571-[id number] NAIL, 6 OR MORE 05/07/2020 [id number] NAIL, 6 OR MORE 08/10/2020 96997-[id number] NAIL, 6 OR MORE 11/26/2020 [id number] NAIL, 6 OR MORE 03/04/2021 [id number] NAIL, 6 OR MORE 06/07/2021 [id number] NAIL, 6 OR MORE 09/06/2021 [id number] NAIL, 6 OR MORE 01/20/2022 [id number] NAIL, 6 OR MORE 06/13/2022 35040-[id number] NAIL, 6 OR MORE 09/19/2022 [id number] NAIL, 6 OR MORE 12/26/2022 [id number] NAIL, 6 OR MORE 03/27/2023 [id number] NAIL, 6 OR MORE 06/26/2023 [id number] NAIL, 6 OR MORE 09/25/2023 [id number] NAIL, 6 OR MORE 05/13/2024 Next Appt Details Provider Name:Marcus Tracey , 08/19/2024 04:00:00 PM, [address] [facility], [place], [address], Insurance Providers Payer Name Payer Address Payer Phone Subscriber Number Group Number Insured Name Patient Relationship to Insured Coverage Start Date Coverage End Date Medicare National Govt Sv[employer] Inc [address] [place] [address] [id number] Troy Gautam Self - patient is the insured Medical (General) History Medical History History ICD Code Anxiety Depression Gout Psychiatric disorder Chicken pox type II diabetes ptsd CAD (Cholesterol) Mild Retardation Surgical History Surgery Date(Month/Year) Hospitalization History Reason Date(Month/Year) [facility] ER sodium too high 12/23
--- OUTSIDE RECORDS SUMMARY | 2024-07-03 19:00 | XMS_ITS | Clinical Summary ---
Author Organization [employer] Address [address] [place] [address] [address] [place] [address] Care Team Providers Care Hunter Guide Name Role Phone Unavailable Primary Care Provider Unavailabl e Allergies No known active allergies Medications clindamycin (Cleocin) 150 MG capsule 2 caps one hour prior to dental procedure 4 capsule 4 Active Encounters Date Type Department Care Team Description 07/02/2024 Telephone [facility] [address] [place] [address] Sudhir Weinstein DMD from Last 3 Months Social History Tobacco Use Types Packs/Day Years [...] 1977 Sigmoidoscopy 1977 Alcohol/Substance Use Screening 1989 Tobacco Screening 1989 Family Planning (PISQ) 1992 Hepatitis C Screening 07/05/1995 DTaP/Tdap/Td Vaccines (1 - Tdap) 1996 Hepatitis B Vaccines (1 of 3 - 19+ 3-dose series) 1996 Dental Prophylaxis 03/23/2022 09/20/2021, 1 06/15/2018, 05/11/2017, Additional history exists Dental Oral Exam 12/19/2023 06/19/2023, 03/2022, 04/14/2019, Additional history exists COVID-19 Vaccine ( season) 2023 05/02/2021, 08/19/2020, 07/29/2020 Influenza Vaccine (#1) 2023 Dental X-Ray: Bitewings 06/20/2024 06/19/19 24, 09/01/2021, [...] 5 Years) and At-Risk Patients (6 to 49) Years) Aged Out No longer eligible based on patient's age to complete this topic RSV under 20 months Aged Out No longe r eligible based on patient's age to complete this topic Rotavirus Vaccines Aged Out No longer eligible based on patient's age to complete this topic Procedures Procedure Name Priority Date/Time Associated Diagnosis Comments INTRAORAL - COMPLETE SERIES OF RADIOGRAPHIC IMAGES Routine 06/19/2023 1:30 PM EST COMPREHENSIVE ORAL EVALUATION - NEW OR ESTABLISHED PATIENT Routine 06/19/2023 1:30 PM EST PROPHYLAXIS - ADULT Routine 09/20/2021 1 2:00 AM EDT from Last 3 Months or Most Recently Relevant to Health Maintenance Insurance [facility] MEDICAID STAND ADULT Member Subscriber Plan / Payer (Ef fective 2022-Present) Name:TroyMoisesin Relation to Subscriber:Self Name:SimmonsMoisesin Payer ID:Not on file Group ID:Not on file Type:Not on file Address: [place] [id number]
--- OUTSIDE RECORDS SUMMARY | 2024-07-03 19:01 | XMS_ITS ---
Author Organization [facility] Address [address] [place] [address] Care Team Providers Care Office Secretary Name Role Phone Trevor Conley MD Primary Care Provider Naveen Flores Jr [phone] REASON FOR VISIT nurse order Encounters Encounter Location Date Provider Diagnosis [facility] [address] [place] [address] 05/14/2024 Naveen Yang Jr Plan Of Treatment No Information Progress Notes * FERMIN PEREZ ADOB:1975 (48 yo M)Acc No.[id number]:05/14/2024 Patient:?FERMIN PEREZ :1975???Age:48 Y???Sex:Male Address:[address] [place] [address] * true * Date:? Generated for Luz burris/Danny/eTransmitting on:?07/03/2024 07:01 PM EDT
--- OUTSIDE RECORDS SUMMARY | 2024-07-03 19:01 | XMS_ITS | Patient Health Record ---
Author Organization [facility] Address [address] [place] [address] Care Team Providers Care Construction Millwright Name Role Phone Trevor Conley MD Primary Care Provider Naveen Flores Jr Unavailable [phone] Allergies Allergen (clinical drug ingredient) Drug/Non Drug Allergy documented on EMR Reaction Allergy Type Onset Date Status Penicillin Unknown Drug Allergy Active Results Component Value Reference Range Notes Glucose, Whole Blood Reviewed date:05/23/2024 09:24:07 PM Interpretation: Performing Lab:[facility], [address] [place] [phone] Notes/Report: Glucose, Whole Blood 233 60-115 mg/dL METER # : [id number] Reason For Referral No Information Medications Medication [...] 1000 MG TAKE 1 TABLET BY M OUT TWICE A DAY DIRECTED Oral for 90 [...] IN THE MORNING Subcutaneous for 90 Not-Taking Social History Tobacco Use: Social History Observation Description Date Details (start date - stop date) Never Smoker NA - NA Tobacco Use/Smoking Question Answer Notes Patient is a nonsmoker Alcohol Screen Question Answer Notes Did you have a drink containing alcohol in the p ast year? No Points 0 Interpretation Negative Problems Problem Type SNOMED Code ICD Code Onset Dates Problem Status W/U Status Risk Notes Problem 518302650 Colon cancer screening (Z12.11) Active confirmed Problem 977326349 group home (curre nt) use of anticoagulants (Z79.01) Active confirmed Problem 826519712 Long-term curren t use of high risk medication other than anticoagulant (Z79.899) Active confirmed Vital Signs Blood pressure diastolic 00 mm Hg 05/01/2024 Height 5 ft 7 in in 05/01/2024 Blood pressure systolic 00 mm Hg 05/01/2024 Weight 171 lbs 05/01/2024 BMI 26.78 kg/m2 05/01/2024 Encounters Encounter Location Date Provider Diagnosis [facility] Out[facility] [address] [place] [phone] 05/23/2024 Naveen Yang Jr Colon cancer screening Z12.11 [facility] [address] [place] [address] 05/01/2024 Naveen Yang Jr Colon cancer screening Z12.11 ; Long-term current use of high risk medication other than anticoagulant Z79.899 and group home (current) use of anticoagulants Z79.01 [facility] [address] [place] [address] 05/14/2024 Naveen Yang Jr [facility] [address] [place] [address] 05/19/2024 Naveen Yang Jr Assessments Encounter Date Diagnosis (ICD Code) Assessment Notes Treatment Notes Treatment Clinical Notes Section Notes 05/23/2024 Colon cancer screening (ICD-10 - Z12.11) 05/01/2024 Colon cancer screening (ICD-10 - Z12.11) Colonoscopy material was printed We discussed colonoscopy today. We discussed risks and benefits of the procedure today. He understands these and agrees to proceed. This will be scheduled at his convenience. He is advised to stop Eliquis 3 days before the procedure, metformin the day before the procedure, and any long-acting insulin the night before the prep. 05/01/2024 Long-term current use of high risk medication other than anticoagulant (ICD-10 - Z79.899) We discussed colonoscopy today. We discussed risks and benefits of the procedure today. He understands these and agrees to proceed. This will be scheduled at his convenience. He is advised to stop Eliquis 3 days before the procedure, metformin the day before the procedure, and any long-acting insulin the night before the prep. 05/01/2024 terminal superintendent (current) use of anticoagulants (ICD-10 - Z79.01) We discussed colonoscopy today. We discussed risks and benefits of the procedure today. He understands these and agrees to proceed. This will be scheduled at his convenience. He is advised to stop Eliquis 3 days before the procedure, metformin the day before the procedure, and any long-acting insulin the night before the prep. Plan Of Treatment Future Test Test Name Order Date COLONOSCOPY 05/01/2024 Insurance Providers Payer Name Payer Address Payer Phone Subscriber Number Group Number Insured Name Patient Relationship to Insured Coverage Start Date Coverage End Date MEDICARE OF [place] [address] [address] [id number] FERMIN PEREZ Self - patient is the insured MEDICAID OF [employer] [address] [place] [address] [id number] EFRMIN PEREZ Self - patient is the insured Medical (General) History Medical History History ICD Code Diabetes mellitus type 2 Pulmonary embolus Schizoaffective disorder bipolar disorder Intellectual disability PTSD Hyperlipidemia Surgical History Surgery Date(Month/Year) Excision of right axillary lesion
--- OUTSIDE RECORDS SUMMARY | 2024-07-03 19:01 | XMS_ITS | Encounter Summary ---
Author Organization [facility] [employer] Address [address] [facility] [address] [place] [address] Care Team Providers Care Labor Contract Analyst Name Role Phone Unavailable Primary Care Provider [...]
--- OUTSIDE RECORDS SUMMARY | 2024-07-03 19:01 | XMS_ITS | Encounter Summary ---
Author Organization [facility] Address [address] [facility] [address] [place] [address] Care Team Providers Care Special Needs Bus Driver Name Role Phone Unavailable Primary Care Provider Unavailabl e Encounter Details Date Type Department Care Team (Late st Contact Info) Description 07/02/2024 Telephone [facility] [address] [place] [address] Sudhir Weinstein, DMD [address] [place] [address] Social History Tobacco Use Types Packs/Day Years Used Date Smoking Tobacco: Never Sex and Gender Information Value Date Recorded Sex Assigned at Male 02/20/2022 10:22 AM EDT Legal Sex Male 10:22 AM EDT Gender Identity Male 02/20/2022 10:22 AM EDT Sexual Orientation Choose not to disclose 2021 10:22 AM EDT documented as of this encounter Miscellaneous Notes * Telephone Encounter - Damon Smallwood - 07/02/2024 2:03 PM EDT Called patient to schedule an appointment for extraction but grandmother answer the phone and explained that now patient lives with his career coach and she will reach patients mother to call us back to schedule this appointment. documented in this encounter Plan of Treatment Not on file documented as of this encounter Visit Diagnoses Not on filedocumented in this encounter
--- OUTSIDE RECORDS SUMMARY | 2024-07-03 19:01 | XMS_ITS ---
Author Organization [facility] Address [address] [place] [address] Care Team Providers Care Wrist Hemmer Name Role Phone Trevor Conley MD Primary Care Provider Marcus Bonds Unavailable [phone] Encounters Encounter Location Date Provider Diagnosis [facility] [address] [place] [address] 02/19/2024 Marcus Tracey Plan Of Treatment Next Appt Details Provider Name:Marcus Tracey , 08/19/2024 04:00:00 PM, [address] [place] [address], [phone], Progress Notes * ANA MoisesKarenOB:1975 ( 48 yo M)Acc No.[id number]:02/19/2024 Progress Note Patient:?Gautam SIMMONS Provider:?Marcus Tracey DPM :1975???Age:48 Y???Sex:Male Prosper e:02/19/2024 Address:[address] , [address] [place], [place] [id number] Pcp:Trevor Conley MD Subjective: * Chief Complaints: [...] Tracey DPM Date:?2023 Generated for Luz burris/Danny/Nadine on:?07/03/2024 07:00 PM EDT
--- OUTSIDE RECORDS SUMMARY | 2024-07-03 19:01 | XMS_ITS ---
Author Organization [facility] Address [address] [place] [address] Care Team Providers Care Purchasing Department Clerk Name Role Phone Trevor Conley MD Primary Care Provider Naveen Flores Jr REASON FOR VISIT screening Encounters Encounter Location Date Provider Diagnosis [facility] [address] [place] [phone] 05/23/2024 Naveen Yang Jr Colon cancer screening Z12.11 Assessments Encounter Date Diagnosis (ICD Code) Assessment Notes Treatment Notes Treatment Clinical Notes Section Notes 05/23/2024 Colon cancer screening (ICD-10 - Z12.11) Plan Of Treatment No Information Progress Notes * ANA FERMIN ADOB:1975 (48 yo M)Acc No.[id number]:05/23/2024 COLON WITH MAC Patient:?SAM PEREZIN Dimitrios Provider:?Naveen Yang MD :1975???Age:48 Y???Sex:Male Prosper e:05/23/2024 Address:[address] [place], [place] [phone] Pcp:Trevor Conley MD Subjective: * Chief Complaints: * ???1. Screening. * Medical History:? Objective: * Vitals:? Assessment: * Assessment: 1.?Colon cancer screening - Z12.11 (Primary)??? Plan: * Treatment: * Procedure Codes:?98778 DIAGN OSTIC COLONOSCOPY, 0528F RCMND FLW-UP 10 YRS DOCD * * The named appointment provid er may or may not be the originator of this progress note, and it is not deemed complete until electronically signed by the appointment provider. Sign off status: Pending * Provider:?Naveen Yang MD Date:?0 05/23/2024 Generated for Luz burris/Danny/Nadine on:?07/03/2024 07:00 PM EDT
--- OUTSIDE RECORDS SUMMARY | 2024-07-03 19:01 | XMS_ITS ---
Author Organization [facility] Address [address] [place] [address] Care Team Providers Care Tape Cutting Machine Operator Name Role Phone Trevor Conley MD Primary Care Provider Unavaila Marcus Almanza Unavailable [phone] Allergies Allergen (clinical drug ingredient) Drug/Non Drug [...] Tobacco non-user Current no nsmoker Vital Signs Height 5ft 6in in 05/13/2024 Weight 166 lbs 05/13/2024 BMI 26.79 kg/m2 05/13/2024 Blood pressure systolic 118 mm Hg 05/13/19 25 Blood pressure diastolic 70 mm Hg 025 Procedures Procedure Date Ordered Date Performed Result Body Sit e 48608-WJALSUU NAIL, 6 OR MORE 05/13/2024 N/A Encounters Encounter Location Date Provider Diagnosis [facility] [address] [address] 05/13/2024 Marcus Blackunier Pain in right toe(s) M79.674 ; Tinea [...] Treatment Pending Test Test Name Order Date 40320-MDESPAE NAIL, 6 OR MORE 05/13/2024 Next Appt Details Follow Up: prn, Reason: Provider Name:Marcus Tracey , 08/19/2024 04:00:00 PM, [address] [place] [address], [phone], Procedure Notes * Category Sub-Category Detail [...] use of a nail nipper and/or dremel-type wood grinder, to a more viable healthy nail [...] * Moises SIMMONSinDOB:1975 ( 48 yo M)Acc No.[id number]:05/13/2024 Progress Note Patient:?SIMMONS Gautam Provider:?Marcus Tracey DPM :1975???Age:48 Y???Sex:Male Prosper e:05/13/2024 Address:[address] , [address] [facility], [place], [place] Pcp:Trevor Conley MD Subjective: * Chief Complaints: [...] segura Surgical History * Hospitalization/Major Diagno stic Procedure:?[facility] ER sodium too high 01/15/2020 * [...] 6.4 * Examination: ???Ophthalmology Referral: ?DIABETES EYE EXAM?Procedure Performed:?Yes ?Date of Exam Performed?12/24/2023 ?Diabetic Retinopathy Screening:?Yes ?Findings of Diabetic Eye Exam:?no retinopathy?Nails: ?NAILS are:?Elongated, overgrown, dystrophic, lytic, greater than [...] support at the present time.?General Examination: ?Footwear Evaluation?Footwear Evaluation performed:?Yes??? Assessment: * Assessment: 1.?Pain in right toe(s) [...] use of a nail nipper and/or dremel-type wood grinder, to a more viable healthy nail [...] to maintain effectiveness in symptomatic relief - 86756.? * Procedure Codes:?31924 DEBRI DE NAIL, 6 OR [id number] Pall serv during david * Preventive Medicine:? [...] Provider:?Marcus Tracey DPM Date:?2024 Generated for Luz burirs/Danny/Nadine on:?07/03/2024 07:00 PM EDT History and Physical Notes * HPI (History of Present Illness) Category Sub-Category Detail Notes Category Not es Toe pain Treatments: Rx shoes At Risk footcare Pt States Last PCP Visit: Date: Examination Category Sub-Category Detail Notes Category Not [...]
--- OUTSIDE RECORDS SUMMARY | 2024-07-03 19:01 | XMS_ITS ---
Author Organization [facility] Address [address] [place] [address] Care Team Providers Care Cook Relief Name Role Phone Trevor Conley MD Primary Care Provider UnavailMarcus Huber [phone] REASON FOR VISIT Reschedule Encounters Encounter Location Date Provider Diagnosis [address] [address] 02/18/2024 Marcus Tracey Plan Of Treatment Next Appt Details Provider Name:Macrus Tracey , 08/19/2024 04:00:00 PM, [address] [place] [address], [phone], Progress Notes * Moises SIMMONSinDOB:1975 ( 48 yo M)Acc No.[id number]:02/18/2024 Patient:?Gautam Simmons :1975???Age:48 Y???Sex:Male Address:[address] , [address] [place], [address] * true * Date:? Generated for Printi ng/Faxing/eTransmitting on:?07/03/2024 07:00 PM EDT
== END 2024-07-03 15:22 | disposition home or self-care (01) ==
LOC: HO.LABR 15:21
PROVIDERS: PCP Internal Medicine; Visit Provider Psychiatry & Neurology Psychiatry
DX: Z79.899 Other long term (current) drug therapy (principal)
CPT/HCPCS: 36415; 85025

== ENCOUNTER 2024-07-04 09:40 | Emergency (ER) | payer MEDICARE, MEDICAID, SELFPAY ==
[2024-07-04 09:53] VITALS: BP 140/93; PULSE 103; RESP 18; TEMP 36.7; O2SAT 94; BMI 25.2
[2024-07-04 10:21] LABS: Glucose, Whole Blood 568 mg/dL (60-115)
[2024-07-04 10:21] LABS: Glucose, Whole Blood 561 mg/dL (60-115)
--- NOTE | 2024-07-04 10:21 | ED.GENADULT ---
HPI - General Adult General Chief complaint: General Medical Stated complaint: High blood sugar Time Seen by Provider: 07/04/24 10:21 Source: patient Mode of arrival: ambulatory Limitations: no limitations History of Present Illness HPI narrative: This is a 49-year-old man with a past medical history schizoaffective disorder, diabetes mellitus, PE on Eliquis, mixed hyperlipidemia who presents for evaluation of hyperglycemia. Mother's present time history and exam. Mother states that patient's glucose has been slowly increasing over the last several months. She states that he used to do his short-acting Humalog insulin 3 times a day, but this is decreased so once in the morning and once at night. She states that he is currently taking 30 units of insulin Lantus in the morning, which he reports that he has taken already today. He states no fevers. He states no pain. He states that he was nervous when he noted how high his blood sugar was today and for this reason they present for evaluation. He states no chest pain or dyspnea. He states no abdominal pain, nausea or vomiting. He states no symptoms. He states no trauma. He states no polyuria or polydipsia. Related Data Home Medications ?Medication ?Instructions ?Recorded ?Confirmed ascorbic acid (vitamin C) 500 mg 1 tab PO DAILY 03/02/20 05/23/24 tablet (Vitamin C) benztropine 1 mg tablet 1 tab PO BID 03/02/20 05/23/24 cholecalciferol (vitamin D3) 25 1 cap PO DAILY 03/02/20 05/23/24 mcg (1,000 unit) capsule (Vitamin D3) clozapine 100 mg tablet 300 mg PO BEDTIME 03/02/20 05/23/24 clozapine 50 mg tablet 50 mg PO DAILY 03/02/20 05/23/24 fluticasone propionate 50 1 spray intranasal BID 03/02/20 05/23/24 mcg/actuation nasal spray,suspension haloperidol 5 mg tablet 2.5 mg PO DAILY 03/02/20 05/23/24 haloperidol 5 mg tablet 5 mg PO BEDTIME 03/02/20 05/23/24 metformin 1,000 mg tablet 1 tab PO BID 03/02/20 05/23/24 multivitamin 1 tab PO DAILY 03/02/20 05/23/24 sertraline 100 mg tablet 1.5 tab PO DAILY 03/02/20 05/23/24 simvastatin 80 mg tablet 1 tab PO DAILY 03/02/20 05/23/24 allopurinol 100 mg tablet 100 mg PO DAILY 06/09/20 05/23/24 apixaban 2.5 mg tablet (Eliquis) 2.5 mg PO BID 07/02/23 05/23/24 clonazepam 1 mg tablet 0.5 mg PO BID 07/02/23 05/23/24 Previous Rx's ?Medication ?Instructions ?Recorded alcohol swabs 1 pad topical QIDACHS #100 ea 07/04/23 insulin glargine 100 unit/mL (3 15 unit (0.15 mL) subcut DAILY #15 07/04/23 mL) subcutaneous pen (Lantus mL Solostar U-100 Insulin) insulin lispro 100 unit/mL 0 sliding scale dose subcut 07/04/23 subcutaneous pen (Humalog KwikPen QIDACHS #15 mL (U-100) Insulin) pen needle, diabetic 32 gauge x #100 ea 07/04/2304/26 Allergies Allergy/AdvReac Type Severity Reaction Status Date / Time penicillin G Allergy Unknown Unknown Verified 07/04/24 09:56 Penicillins [PENICILLINS] Allergy Unknown Unknown Verified 07/04/24 09:56 Review of Systems Review of Systems: ROS as per [facility] Past Medical History Medical History Gout Hyperlipidemia Intellectual disability Bipolar 1 disorder Saddle pulmonary embolus Diabetes insipidus High cholesterol Anxiety PTSD (post-traumatic stress disorder) Schizo affective schizophrenia Surgical History Hx of tooth extraction Hx of excision of mass Social History Social History Household Members: Other Housing: Other Housing Other:: penitentiary/Assisted living Alcohol intake: never Patient Tobacco Use Status: Never used Tobacco Advance Directives: Yes Advance Directives on File: Yes Advance Directives Date on File: 04/20/21 Do you have a plan to hurt others: No Plan service: No Current occupational status: disabled Physical Exam ED Vital Signs: Vital Signs - 24 hr 07/04/24 09:53 07/04/24 12:31 07/04/24 14:44 Temperature 98.0 F 97.7 F 98.2 F Pulse Rate 103 H 79 77 Respiratory Rate 18 18 18 Blood Pressure 140/93 H 149/96 H 159/95 H Pulse Oximetry 94 96 99 Oxygen Delivery Method Room Air Room Air Room Air BMI result Body Mass Index 25.2 Gen: NAD, AOx3 HEENT: NCAT, EOMI, normal conjunctiva, dry oral mucosa CV: RRR Pulm: CTAB, no increased work of breathing GI: Soft, NTND, no rebound, guarding or rigidity Neuro: Grossly non focal Medications Administered Discontinued Medications Generic Name Dose Route Start Last Admin Trade Name Freq PRN Reason Stop Dose Admin Lactated Ringer's 1,000 mls @ 999 mls/hr 07/04/24 10:22 07/04/24 12:47 Lr IV 07/04/24 11:22 Infused .Q1H1M ONE Infusion Lactated Ringer's 1,000 mls @ 999 mls/hr 07/04/24 10:22 07/04/24 12:47 Lr IV 07/04/24 11:22 Infused .Q1H1M ONE Infusion Lactated Ringer's 1,000 mls @ 999 mls/hr 07/04/24 13:07 07/04/24 14:37 Lr IV 07/04/24 14:07 Infused .Q1H1M ONE Infusion Insulin Human Regular 10 unit 07/04/24 10:22 07/04/24 10:47 Insulin Regular, Human 100 Unit/Ml 10 Ml Vial IVPUSH 07/04/24 10:23 10 unit ONCE ONE Administration Medical Decision Making Medical Decision Making MDM Narrative: Differential diagnosis includes, but is not limited to hyperglycemia, diabetic ketoacidosis, electrolyte abnormality, acute kidney injury. Low clinical suspicion for diabetic ketoacidosis overall. Venous blood gas as below with no acid-base disturbance and no elevation in anion gap effectively ruling out diabetic ketoacidosis. Patient is afebrile and hemodynamically stable on room air. Exam is benign and reassuring. Patient is provided 1 L IV lactated Ringer's x3 as well as 10 units of IV insulin regular. I reviewed the patient's labs as below. Patient was initially hyperglycemic to 611 on arrival, but this improves to 102 prior to discharge. On re-examination, patient is well-appearing and in no acute distress. ?There is no indication for further emergent evaluation in this otherwise well-appearing patient as above. ?Patient and mother are provided written and verbal instructions, educational materials, recommendations for outpatient follow-up, strict return precautions and teach back is performed. ?Patient and mother state understanding and agreement with plan of care. ?Patient is discharged home in stable and improved condition. Admission/Observation Consideration of admission/observation: Escalation of care including admission/observation considered Lab Data MDM Lab Attestation statement: I reviewed the patient's lab results. I independently reviewed and interpreted the patient's labs, which is notable for hyperglycemia, no acid-base disturbance or elevated anion gap to suggest diabetic ketoacidosis, creatinine 1.51 (previous 1.20 - likely prerenal acute kidney injury secondary to osmotic diuresis in the setting of hyperglycemia), urinalysis with glucosuria and no ketones. 07/04/24 10:25 07/04/24 10:25 Labs: Lab Results 07/04/24 07/04/24 07/04/24 Range/Units 10:12 10:15 10:25 WBC 6.3 (4.8-10.8) X10*3/uL RBC 4.93 (4.60-5.80) X10*6/uL Hgb 14.1 (14.0-18.0) g/dl Hct 41.6 L (42.0-52.0) % MCV 84.4 (80.0-98.0) fL MCH 28.6 (27.0-33.0) pg MCHC 33.9 (31.0-36.0) g/dl RDW 13.4 (11.0-16.0) % Plt Count 178 (160-400) X10*3/uL MPV 11.1 (9.4-12.4) fL Immature Gran % (Auto) 0.3 (0.0-0.4) % Neut % (Auto) 58.9 (45-73) % Lymph % (Auto) 24.8 (20-40) % [place] % (Auto) 6.0 (2-11) % Eos % (Auto) 9.2 H (0-4) % Baso % (Auto) 0.8 (0-2) % Lymph # (Auto) 1.6 (1.2-4.9) X10*3/uL [place] # (Auto) 0.4 (0.1-1.2) X10*3/uL Eos # (Auto) 0.6 H (0.0-0.4) X10*3/uL Baso # (Auto) 0.1 (0.0-0.2) X10*3/uL Abs Immat Gran (auto) 0.02 (0.00-0.03) X10*3/uL Absolute Neuts (auto) 3.7 (2.0-8.3) x10*3/uL Absolute Nucleated RBC 0.000 (0.0-0.012) X10*3/uL Nucleated RBC % (auto) 0.0 (0.0-0.2) /100WBC VBG pH (7.32-7.43) VBG pCO2 mmHg VBG pO2 mmHg VBG HCO3 (22-26) mmol/L VBG O2 Saturation % VBG Base Excess mmol/L Sodium 139 (135-145) mmol/L Potassium 4.5 D (3.3-5.1) mmol/L Chloride 107 (96-108) mmol/L Carbon Dioxide 22 (22-29) mmol/L Anion Gap 15 (12-20) BUN 24 H (9-16) mg/dL Creatinine 1.51 H (0.5-1.4) mg/dL Estim Creat Clear Calc 56.5 Estimated GFR 50 POC Glucose 561 H* 568 H* (60-115) mg/dL Random Glucose 611 H* (60-115) mg/dL Calcium 10.0 (8.4-10.2) mg/dL Magnesium 2.0 (1.6-2.6) mg/dL Total Bilirubin 0.3 (0.0-1.0) mg/dL Direct Bilirubin 0.1 (0.0-0.5) mg/dL AST 18 (5-37) U/L ALT 44 H (0-40) U/L Alkaline Phosphatase 123 H (39-117) U/L Total Protein 8.2 H (6.5-8.0) g/dL Albumin 4.4 (3.5-5.0) g/dL Urine Color Urine Appearance Urine pH (5.0-9.0) Ur Specific [place] (1.005-1.025) Urine Protein (Neg-Trace) mg/dL Urine Glucose (UA) (Negative) mg/dL Urine Ketones (Negative) mg/dL Urine Blood (Negative) Urine Nitrite (Negative) Ur Leukocyte Esterase (Negative) Urine RBC (0-2) /HPF Urine WBC (0-5) /HPF Ur Squamous Epith Cells (0-2) /HPF Urine Bacteria (None Seen) Hyaline Casts (0-2) /LPF 07/04/24 07/04/24 07/04/24 Range/Units 10:31 12:25 12:29 WBC (4.8-10.8) X10*3/uL RBC (4.60-5.80) X10*6/uL Hgb (14.0-18.0) g/dl Hct (42.0-52.0) % MCV (80.0-98.0) fL MCH (27.0-33.0) pg MCHC (31.0-36.0) g/dl RDW (11.0-16.0) % Plt Count (160-400) X10*3/uL MPV (9.4-12.4) fL Immature Gran % (Auto) (0.0-0.4) % Neut % (Auto) (45-73) % Lymph % (Auto) (20-40) % [place] % (Auto) (2-11) % Eos % (Auto) (0-4) % Baso % (Auto) (0-2) % Lymph # (Auto) (1.2-4.9) X10*3/uL [place] # (Auto) (0.1-1.2) X10*3/uL Eos # (Auto) (0.0-0.4) X10*3/uL Baso # (Auto) (0.0-0.2) X10*3/uL Abs Immat Gran (auto) (0.00-0.03) X10*3/uL Absolute Neuts (auto) (2.0-8.3) x10*3/uL Absolute Nucleated RBC (0.0-0.012) X10*3/uL Nucleated RBC % (auto) (0.0-0.2) /100WBC VBG pH 7.36 (7.32-7.43) VBG pCO2 41 mmHg VBG pO2 82 mmHg VBG HCO3 24 (22-26) mmol/L VBG O2 Saturation 96.0 % VBG Base Excess -1.2 mmol/L Sodium (135-145) mmol/L Potassium (3.3-5.1) mmol/L Chloride (96-108) mmol/L Carbon Dioxide (22-29) mmol/L Anion Gap (12-20) BUN (9-16) mg/dL Creatinine (0.5-1.4) mg/dL Estim Creat Clear Calc Estimated GFR POC Glucose 299 H (60-115) mg/dL Random Glucose (60-115) mg/dL Calcium (8.4-10.2) mg/dL Magnesium (1.6-2.6) mg/dL Total Bilirubin (0.0-1.0) mg/dL Direct Bilirubin (0.0-0.5) mg/dL AST (5-37) U/L ALT (0-40) U/L Alkaline Phosphatase (39-117) U/L Total Protein (6.5-8.0) g/dL Albumin (3.5-5.0) g/dL Urine Color Yellow Urine Appearance Clear Urine pH 5.5 (5.0-9.0) Ur Specific [place] 1.020 (1.005-1.025) Urine Protein Negative (Neg-Trace) mg/dL Urine Glucose (UA) >=1000 H (Negative) mg/dL Urine Ketones Negative (Negative) mg/dL Urine Blood Negative (Negative) Urine Nitrite Negative (Negative) Ur Leukocyte Esterase Negative (Negative) Urine RBC 0-2 (0-2) /HPF Urine WBC 0-5 (0-5) /HPF Ur Squamous Epith Cells 0-2 (0-2) /HPF Urine Bacteria None Seen (None Seen) Hyaline Casts 0-2 (0-2) /LPF 07/04/24 Range/Units 14:40 WBC (4.8-10.8) X10*3/uL RBC (4.60-5.80) X10*6/uL Hgb (14.0-18.0) g/dl Hct (42.0-52.0) % MCV (80.0-98.0) fL MCH (27.0-33.0) pg MCHC (31.0-36.0) g/dl RDW (11.0-16.0) % Plt Count (160-400) X10*3/uL MPV (9.4-12.4) fL Immature Gran % (Auto) (0.0-0.4) % Neut % (Auto) (45-73) % Lymph % (Auto) (20-40) % [place] % (Auto) (2-11) % Eos % (Auto) (0-4) % Baso % (Auto) (0-2) % Lymph # (Auto) (1.2-4.9) X10*3/uL [place] # (Auto) (0.1-1.2) X10*3/uL Eos # (Auto) (0.0-0.4) X10*3/uL Baso # (Auto) (0.0-0.2) X10*3/uL Abs Immat Gran (auto) (0.00-0.03) X10*3/uL Absolute Neuts (auto) (2.0-8.3) x10*3/uL Absolute Nucleated RBC (0.0-0.012) X10*3/uL Nucleated RBC % (auto) (0.0-0.2) /100WBC VBG pH (7.32-7.43) VBG pCO2 mmHg VBG pO2 mmHg VBG HCO3 (22-26) mmol/L VBG O2 Saturation % VBG Base Excess mmol/L Sodium (135-145) mmol/L Potassium (3.3-5.1) mmol/L Chloride (96-108) mmol/L Carbon Dioxide (22-29) mmol/L Anion Gap (12-20) BUN (9-16) mg/dL Creatinine (0.5-1.4) mg/dL Estim Creat Clear Calc Estimated GFR POC Glucose 192 H (60-115) mg/dL Random Glucose (60-115) mg/dL Calcium (8.4-10.2) mg/dL Magnesium (1.6-2.6) mg/dL Total Bilirubin (0.0-1.0) mg/dL Direct Bilirubin (0.0-0.5) mg/dL AST (5-37) U/L ALT (0-40) U/L Alkaline Phosphatase (39-117) U/L Total Protein (6.5-8.0) g/dL Albumin (3.5-5.0) g/dL Urine Color Urine Appearance Urine pH (5.0-9.0) Ur Specific [place] (1.005-1.025) Urine Protein (Neg-Trace) mg/dL Urine Glucose (UA) (Negative) mg/dL Urine Ketones (Negative) mg/dL Urine Blood (Negative) Urine Nitrite (Negative) Ur Leukocyte Esterase (Negative) Urine RBC (0-2) /HPF Urine WBC (0-5) /HPF Ur Squamous Epith Cells (0-2) /HPF Urine Bacteria (None Seen) Hyaline Casts (0-2) /LPF Independent Historian Clinical information obtained from an independent historian. History obtained from or confirmed by: Parent Mother contributes to history Discharge Plan Discharge Clinical Impression: Acute hyperglycemia Patient Disposition: Home, Self-Care Instructions: Diabetic Hyperglycemia (ED) Additional Instructions: You were seen and evaluated in the emergency room. You were found to have high blood glucose with no evidence of diabetes complication. You were treated with IV fluids (3 L of fluids) and insulin. Please be sure to continue monitoring her sugars very closely at home and continue taking your insulin Lantus and sliding scale insulin. Please follow-up at your previously scheduled business support liaison appointment next week. Please follow-up with your primary care doctor in the next 5-7 days. ? Please return to the emergency room if you develop any worsening symptoms including, but not limited to fever, chest pain or difficulty breathing. ? Prescriptions: No Action multivitamin Tablet 1 tab PO DAILY haloperidol 5 mg Tablet 2.5 mg PO DAILY haloperidol 5 mg Tablet 5 mg PO BEDTIME clozapine 100 mg tablet 300 mg PO BEDTIME sertraline 100 mg tablet 1.5 tab PO DAILY simvastatin 80 mg tablet 1 tab PO DAILY ascorbic acid (vitamin C) [Vitamin C] 500 mg tablet 1 tab PO DAILY metformin 1,000 mg tablet 1 tab PO BID benztropine 1 mg tablet 1 tab PO BID fluticasone propionate 50 mcg/actuation spray,suspension 1 spray intranasal BID cholecalciferol (vitamin D3) [Vitamin D3] 25 mcg (1,000 unit) capsule 1 cap PO DAILY clozapine 50 mg Tablet 50 mg PO DAILY clonazepam 1 mg tablet 0.5 mg PO BID Eliquis 2.5 mg tablet 2.5 mg PO BID alcohol swabs Pads, Medicated 1 pad TOPICAL QIDACHS Qty: 100 0RF Rx Instructions: Use four times a day or as directed. insulin lispro [Humalog KwikPen Insulin] 100 unit/mL insulin pen 0 sliding scale dose SUBCUT QIDACHS Qty: 15 0RF Rx Instructions: Blood Sugar: <150 - 0 units 151-200 - 2 units 201-250 - 4 units 251-300 - 6 units 301-350 - 8 units >350 - 10 units insulin glargine [Lantus Solostar U-100 Insulin] 100 unit/mL (3 mL) insulin pen 15 unit SUBCUT DAILY Qty: 15 0RF Rx Instructions: in the morning (DME) pen needle, diabetic 32 gauge x 1/4 needle Qty: 100 0RF Rx Instructions: Use four times a day or as directed. allopurinol 100 mg tablet 100 mg PO DAILY Print Language: Beninese
[2024-07-04 10:32] LABS: MANUAL DIFF FLAG NO; Venous Blood Gas Refer to POC result
[2024-07-04 10:35] LABS: Basophils Absolute Auto 0.1 X10*3/uL (0.0-0.2); Basophils Percent Auto 0.8 % (0-2); Eosinophils Absolute Auto 0.6 X10*3/uL (0.0-0.4); Eosinophils Percent Auto 9.2 % (0-4); Hematocrit 41.6 % (42.0-52.0); Hemoglobin 14.1 g/dl (14.0-18.0); Imm Gran Abs Auto 0.02 X10*3/uL (0.00-0.03); Imm Gran Pct Auto 0.3 % (0.0-0.4); Lymphocytes Absolute Auto 1.6 X10*3/uL (1.2-4.9); Lymphocytes Percent Auto 24.8 % (20-40); Mean Corpuscular HGB Conc 33.9 g/dl (31.0-36.0); Mean Corpuscular Hemoglobin 28.6 pg (27.0-33.0); Mean Corpuscular Volume 84.4 fL (80.0-98.0); Mean Platelet Volume 11.1 fL (9.4-12.4); Monocytes Absolute Auto 0.4 X10*3/uL (0.1-1.2); Neutrophils Absolute Auto 3.7 x10*3/uL (2.0-8.3); Neutrophils Percent Auto 58.9 % (45-73); Platelet Count 178 X10*3/uL (160-400); Red Blood Count 4.93 X10*6/uL (4.60-5.80); Red Cell Distribution Width 13.4 % (11.0-16.0); White Blood Count 6.3 X10*3/uL (4.8-10.8)
[2024-07-04 10:42] LABS: VBG Base Excess -1.2 mmol/L; VBG HCO3 24 mmol/L (22-26); VBG pCO2 41 mmHg; VBG pH 7.36 (7.32-7.43); VBG pO2 82 mmHg
[2024-07-04] MEDS: Insulin Regular, Human 100 UNIT/ML 10 ML VIAL 10 UNIT IVPUSH (10:47)
[2024-07-04] MEDS: Lactated Ringers 1,000 ML 999 ML IV ×3 (10:48→13:19)
[2024-07-04 10:58] LABS: Alanine Aminotransferase 44 U/L (0-40); Albumin Level 4.4 g/dL (3.5-5.0); Alkaline Phosphatase 123 U/L (39-117); Anion Gap 15 (12-20); Aspartate Amino Transferase 18 U/L (5-37); Bilirubin Direct 0.1 mg/dL (0.0-0.5); Bilirubin Total 0.3 mg/dL (0.0-1.0); Blood Urea Nitrogen 24 mg/dL (9-16); Carbon Dioxide 22 mmol/L (22-29); Chloride 107 mmol/L (96-108); Creatinine Clr Calc Pharmacy 56.5; Estimated Glomerular Filt Rate 50; Glucose Random 611 mg/dL (60-115); Potassium 4.5 mmol/L (3.3-5.1); Sodium 139 mmol/L (135-145); Total Protein 8.2 g/dL (6.5-8.0)
--- OUTSIDE RECORDS SUMMARY | 2024-07-04 11:37 | XMS_ITS ---
Author Organization [facility] Address [address] [place] [phone] Care Team Providers Care Industrial Spraypainter Name Role Phone Trevor Conley MD Primary Care Provider Naveen Flores Jr REASON FOR VISIT eliquis note Encounters Encounter Location Date Provider Diagnosis [facility] [address] [place] [phone] 05/19/2024 Naveen Yang Jr Plan Of Treatment No Information Progress Notes * FERMIN PEREZ ADOB:1975 (48 yo M)Acc No.[id number]:05/19/2024 Patient:?FERMIN PEREZ :1975???Age:48 Y???Sex:Male Address:[address] [place] [id number] * true * Date:? Generated for Tammyi fatuma/Danny/eTransmitting on:?2024 11:37 AM EDT
--- OUTSIDE RECORDS SUMMARY | 2024-07-04 11:37 | XMS_ITS | Clinical Summary ---
Author Organization [employer] Address [address] [place] [address] [address] [place] [address] Care Team Providers Care Corner Cutter Name Role Phone Unavailable Primary Care Provider Unavailabl e Allergies No known active allergies Medications clindamycin (Cleocin) 150 MG capsule 2 caps one hour prior to dental procedure 4 capsule 4 Active Encounters Date Type Department Care Team Description 07/02/2024 Telephone [facility] [address] [place] [address] Sudhir Weinstein DMD from Last 3 Months [...] Most Recently Relevant to Health Maintenance Insurance [facility]ICA[facility] STAND ADULT Member Subscriber Plan / Payer (Ef fective 2022-Present) Name:TroyMoisesin Relation to Subscriber:Self Name:SimmonsMoisesin Payer ID:Not on file Group ID:Not on file Type:Not on file Address: [place] [phone]
--- OUTSIDE RECORDS SUMMARY | 2024-07-04 11:38 | XMS_ITS | Encounter Summary ---
Author Organization [facility] [employer] Address [address] [facility] [address] [place] [address] Care Team Providers Care Residential Leasing Agent Name Role Phone Unavailable Primary Care Provider [...]
--- OUTSIDE RECORDS SUMMARY | 2024-07-04 11:38 | XMS_ITS | Patient Health Record ---
Author Organization [facility] Address [address] [place] [address] Care Team Providers Care Lead Data Architect Name Role Phone Trevor Conley MD Primary Care Provider Naveen Flores Jr Unavailable Allergies Allergen (clinical drug ingredient) Drug/Non Drug Allergy documented on EMR Reaction Allergy Type Onset Date Status Penicillin Unknown Drug Allergy Active Results Component Value Reference Range Notes Glucose, Whole Blood Reviewed date:05/23/2024 09:24:07 PM Interpretation: Performing Lab:[facility], [address] [place] [id number] Notes/Report: Glucose, Whole Blood 233 60-115 mg/dL METER # : [id number] Reason For Referral No Information Medications Medication [...] Problem Status W/U Status Risk Notes Problem 053045566 Colon cancer screening (Z12.11) Active confirmed Problem 404879661 snf (curre nt) use of anticoagulants (Z79.01) Active confirmed Problem 741078213 Long-term curren t use of high risk medication other than anticoagulant (Z79.899) Active confirmed Vital Signs Blood pressure diastolic 00 mm Hg 05/01/2024 Height 5 ft 7 in in 05/01/2024 Blood pressure systolic 00 mm Hg 05/01/2024 Weight 171 lbs 05/01/2024 BMI 26.78 kg/m2 05/01/2024 Encounters Encounter Location Date Provider Diagnosis [facility] [place] [address] [place] [id number] 05/23/2024 Naveen Yang Jr Colon cancer screening Z12.11 [facility] [address] [place] [address] 05/01/2024 Naveen Yang Jr Colon cancer screening Z12.11 ; Long-term current use of high risk medication other than anticoagulant Z79.899 and snf (current) use of anticoagulants Z79.01 [facility] [address] [place] [address] 05/14/2024 Naveen Yang Jr [facility] [address] [place] [address] 05/19/2024 Naveen Yang Jr Assessments Encounter Date [...] insulin the night before the prep. 05/01/2024 continuous churn buttermaker (current) use of anticoagulants (ICD-10 - Z79.01) [...] [place] [address] [address] [id number] FERMIN PEREZ Self - patient is the insured MEDICAID OF [place] [address] [place] [phone] [id number] FERMIN PEREZ Self - patient is the insured Medical (General) History Medical History History ICD Code Diabetes mellitus type 2 Pulmonary embolus Schizoaffective disorder bipolar disorder Intellectual disability PTSD Hyperlipidemia Surgical History Surgery Date(Month/Year) Excision of right axillary lesion
--- OUTSIDE RECORDS SUMMARY | 2024-07-04 11:38 | XMS_ITS ---
Author Organization [facility] Address [address] [place] [address] Care Team Providers Care Meat Inspector Name Role Phone Trevor Conley MD Primary Care Provider Unavaila Marcus Almnaza Unavailable [phone] Allergies Allergen (clinical drug ingredient) Drug/Non Drug [...] Ordered Date Performed Result Body Sit e 93423-GJQBUHE NAIL, 6 OR MORE 05/13/2024 N/A Encounters Encounter Location Date Provider Diagnosis [facility] [address] [address] 05/13/2024 Marcus Blackunier Pain in right toe(s) [...] Treatment Pending Test Test Name Order Date [id number] NAIL, 6 OR MORE 05/13/2024 Next Appt Details Follow Up: prn, Reason: Provider Name:Marcus Tracey , 08/19/2024 04:00:00 PM, [address] [place] [address], [phone], Procedure Notes * Category Sub-Category Detail [...] use of a nail nipper and/or dremel-type drier and grinder tender, to a more viable healthy nail plate [...] * Moises SIMMONSinDOB:1975 ( 48 yo M)Acc No.[id number]:05/13/2024 Progress Note Patient:?SIMMONS Gautam Provider:?Marcus Tracey DPM :1975???Age:48 Y???Sex:Male Prosper e:05/13/2024 Address:[address] , [address] [facility], [place], [place] Pcp:Trevor Conley MD Subjective: * Chief Complaints: [...] segura Surgical History * Hospitalization/Major Diagno stic Procedure:?[facility] ER sodium too high 01/15/2020 * [...] use of a nail nipper and/or dremel-type drier and grinder tender, to a more viable healthy nail plate [...] to maintain effectiveness in symptomatic relief - 51818.? * Procedure Codes:?82744 DEBRI DE NAIL, 6 OR [id number] Pall serv during david * Preventive Medicine:? [...] Tracey DPM Date:?2024 Generated for Luz burris/Danny/Nadine on:?2024 11:37 AM EDT History and Physical Notes * HPI [...]
--- OUTSIDE RECORDS SUMMARY | 2024-07-04 11:38 | XMS_ITS ---
Author Organization [facility] Address [address] [place] [address] Care Team Providers Care Pulp Plant Supervisor Name Role Phone Trevor Conley MD Primary Care Provider Naveen Flores Jr REASON FOR VISIT nurse order Encounters Encounter Location Date Provider Diagnosis [facility] [address] [place] [address] 05/14/2024 Naveen Yang Jr Plan Of Treatment No Information Progress Notes * FERMIN PEREZ ADOB:1975 (48 yo M)Acc No.[id number]:05/14/2024 Patient:?FERMIN PEREZ :1975???Age:48 Y???Sex:Male Address:[address] [place] [address] * true * Date:? Generated for Luz burris/aDnny/eTransmitting on:?2024 11:38 AM EDT
--- OUTSIDE RECORDS SUMMARY | 2024-07-04 11:38 | XMS_ITS ---
Author Organization [facility] Address [address] [place] [address] Care Team Providers Care Recordist Chief Name Role Phone Trevor Conley MD Primary Care Provider Marcus Bonds Unavailable [phone] Encounters Encounter Location Date Provider Diagnosis [facility] [address] [place] [address] 02/19/2024 Marcus Tracey Plan Of Treatment Next Appt Details Provider Name:Marcus Tracey , 08/19/2024 04:00:00 PM, [address] [place] [address], [phone], Progress Notes * ANA MoisesKarenOB:1975 ( 49 yo M)Acc No.[id number]:02/19/2024 Progress Note Patient:?Gautam SIMMONS Provider:?Marcus Tracey DPM :1975???Age:48 Y???Sex:Male Prosper e:02/19/2024 Address:[address] , [address] [place], [place] [phone] Pcp:Trevor Conley MD Subjective: * Chief Complaints: [...] Tracey DPM Date:?2023 Generated for Luz burris/Danny/Nadine on:?2024 11:37 AM EDT
--- OUTSIDE RECORDS SUMMARY | 2024-07-04 11:38 | XMS_ITS ---
Author Organization [facility] Address [address] [place] [address] Care Team Providers Care Rehab Therapist Name Role Phone Trevor Conley MD Primary Care Provider UnavailMarcus Huber [phone] REASON FOR VISIT Reschedule Encounters Encounter Location Date Provider Diagnosis [address] [address] 02/18/2024 Marcus Tracey Plan Of Treatment Next Appt Details Provider Name:Marcus Tracey , 08/19/2024 04:00:00 PM, [address] [place] [address], [phone], Progress Notes * Moises SIMMONSinDOB:1975 ( 48 yo M)Acc No.[id number]:02/18/2024 Patient:?Gautam Simmons :1975???Age:48 Y???Sex:Male Address:[address] , [address] [place], [address] * true * Date:? Generated for Printi ng/Faxing/eTransmitting on:?2024 11:37 AM EDT
--- OUTSIDE RECORDS SUMMARY | 2024-07-04 11:38 | XMS_ITS ---
Author Organization [facility] Address [address] [place] [address] Care Team Providers Care Pinking Machine Operator Name Role Phone Trevor Conley MD Primary Care Provider Naveen Flores Jr REASON FOR VISIT screening Encounters Encounter Location Date Provider Diagnosis [facility] [place] [address] [place] [phone] 05/23/2024 Naveen Yang Jr Colon cancer screening Z12.11 Assessments Encounter Date Diagnosis (ICD Code) Assessment Notes Treatment Notes Treatment Clinical Notes Section Notes 05/23/2024 Colon cancer screening (ICD-10 - Z12.11) Plan Of Treatment No Information Progress Notes * ANA FERMIN ADOB:1975 (49 yo M)Acc No.[id number]:05/23/2024 COLON WITH MAC Patient:?SAM PEREZIN Dimitrios Provider:?Naveen Yang MD :1975???Age:48 Y???Sex:Male Prosper e:05/23/2024 Address:[address] [place], [place] [phone] Pcp:Trevor Conley MD Subjective: * Chief Complaints: * ???1. Screening. * Medical History:? Objective: * Vitals:? Assessment: * Assessment: 1.?Colon cancer screening - Z12.11 (Primary)??? Plan: * Treatment: * Procedure Codes:?62270 DIAGN OSTIC COLONOSCOPY, 0528F RCMND FLW-UP 10 YRS DOCD * * The named appointment provid er may or may not be the originator of this progress note, and it is not deemed complete until electronically signed by the appointment provider. Sign off status: Pending * Provider:?Naveen Yang MD Date:?0 05/23/2024 Generated for Luz burris/Danny/Nadine on:?2024 11:37 AM EDT
--- OUTSIDE RECORDS SUMMARY | 2024-07-04 11:38 | XMS_ITS | Encounter Summary ---
Author Organization [facility] Address [address] [facility] [address] [place] [address] Care Team Providers Care Aircraft Layout Worker Name Role Phone Unavailable Primary Care Provider Unavailabl e Encounter Details Date Type Department Care Team (Late st Contact Info) Description 07/02/2024 Telephone C [facility]ULT D[facility] [address] [place] [address] Sudhir Weinstein, DMD [address] [place] [address] Social History Tobacco Use Types Packs/Day Years Used Date Smoking Tobacco: Never Sex and Gender Information Value Date Recorded Sex Assigned at Male 02/20/2022 10:22 AM EDT Legal Sex Male 10:22 AM EDT Gender Identity Male 02/20/2022 10:22 AM EDT Sexual Orientation Choose not to disclose 2021 10:22 AM EDT documented as of this encounter Miscellaneous Notes * Telephone Encounter - Damon Smalwlood - 07/02/2024 2:03 PM EDT Called patient to schedule an appointment for extraction but grandmother answer the phone and explained that now patient lives with his child care leader and she will reach patients mother to call us back to schedule this appointment. documented in this encounter Plan of Treatment Not on file documented as of this encounter Visit Diagnoses Not on filedocumented in this encounter
[2024-07-04 12:31] VITALS: BP 149/96; PULSE 79; RESP 18; TEMP 36.5; O2SAT 96
[2024-07-04 12:31] LABS: Appearance Urine Clear; Color Urine Yellow; Glucose Urine UA >=1000 mg/dL (Negative); Leukocyte Esterase Urine Negative (Negative); Nitrite Urine Negative (Negative); PH 5.5 (5.0-9.0); UMIC TRIGGER UACC YES; Urine Blood Negative (Negative); Urine Ketones Negative (Negative); Urine Protein Negative (Neg-Trace)
[2024-07-04 12:33] LABS: Bacteria Urine None Seen (None Seen); Hyaline Casts Urine 0-2 /LPF (0-2); RBC Urine 0-2 /HPF (0-2); Squamous Epithelial Cell Urine 0-2 /HPF (0-2); WBC Urine 0-5 /HPF (0-5)
[2024-07-04 12:35] LABS: Glucose, Whole Blood 299 mg/dL (60-115)
[2024-07-04 14:44] VITALS: BP 159/95; PULSE 77; RESP 18; TEMP 36.8; O2SAT 99
[2024-07-04 14:50] LABS: Glucose, Whole Blood 192 mg/dL (60-115)
[2024-07-04 15:36] VITALS: BP 159/95; PULSE 77; RESP 18; TEMP 36.8; O2SAT 99
== END 2024-07-04 15:38 | disposition home or self-care (01) ==
PROVIDERS: Physician Assistant; Emergency Provider Emergency Medicine
DX: E11.65 Type 2 diabetes mellitus with hyperglycemia (principal); F25.9 Schizoaffective disorder, unspecified; Z86.711 Personal history of pulmonary embolism; Z79.01 Long term (current) use of anticoagulants; Z79.4 Long term (current) use of insulin; Z79.899 Other long term (current) drug therapy
CPT/HCPCS: 36415; 80048; 80076; 81001; 82803; 82947; 83735; 85025; 99283; 99284; J7120

== ENCOUNTER 2024-07-08 10:46 | Outpatient (AMB) | payer MEDICARE, MEDICAID, SELFPAY ==
--- NOTE | 2024-07-03 16:06 | A.OFFVIS_ITS ---
Vital Signs 07/08/24 10:48 Height 5 ft 7 in Weight 160 lb 14.999 oz BMI 25.2 BP 129/80 Blood Pressure Location Rt brachial Position Sitting Pulse 105 H Pulse Source Pulse Oximeter Pulse Oximetry (%) 98 Oxygen Delivery Method Room Air Intake Visit Reasons: T2DM Intake Note: NEW Patient presents today to establish treatment for Type 2 Diabetes Mellitus: Last Diabetic eye exam was on: Within the year, next november Last Podiatry exam was on: Patient does not see a Celebrity Chef Entrepreneur Media Personality Most recent HbA1c: 9.9%, 07/08/2024 Random Glucose- 549 mg/dL, Today UR Ketone Dip- Trace Hydraulic Mechanic Required: No Accompanied by: Mother Allergies penicillin G Allergy (Unknown, Verified 07/08/24 10:51) Unknown Penicillins [PENICILLINS] Allergy (Unknown, Verified 07/08/24 10:51) Unknown Medication List - Last Reconciled 07/08/24 by Shireen Alvarado NP alcohol swabs 1 pad topical QIDACHS allopurinol 100 mg PO DAILY apixaban (Eliquis) 2.5 mg PO BID ascorbic acid (vitamin C) (Vitamin C) 1 tab PO DAILY cholecalciferol (vitamin D3) (Vitamin D3) 1 cap PO DAILY clonazepam 0.5 mg PO BID clozapine 50 mg PO DAILY clozapine 300 mg PO BEDTIME fluticasone propionate 50 mcg/actuation 1 spray intranasal BID haloperidol 5 mg PO BEDTIME insulin glargine (Lantus Solostar U-100 Insulin) 25 units subcut DAILY insulin lispro (Humalog KwikPen (U-100) Insulin) Blood Sugar: <150 - 0 units 151-200 - 2 units 201-250 - 4 units 251-300 - 6 units 301-350 - 8 units >350 - 10 units subcutaneously 4 times a day before meal/bed; Blood Sugar: <150 - 0 units 151-200 - 2 units 201-250 - 4 units 251-300 - 6 units 301-350 - 8 units >350 - 10 units metformin 1 tab PO BID multivitamin 1 tab PO DAILY pen needle, diabetic Use four times a day or as directed. sertraline 1.5 tabs PO DAILY simvastatin 1 tab PO DAILY HPI Comments Details: 49 YO male who is seen in consultation for T2DM at the request of PCP. He was hospitalized in [place] with a glucose of 600 1 year ago and was started on basal bolus insulin. hemoglobin A1c 07/03/2024 9.9%, 03/17/2024 7.4%. Prior to that time his A1c was in the 10% range. MUNIR negative 07/06/23 His diabetes care is complicated by schizoaffective disorder and PTSD. He has a caregiver and mother is involved in his care. He does go to a day program. Initially diagnosed with T2DM approximately 2013 Was initially started on treatment with metformin and Jardiance Current regimen Lantus 25 units (recently increased last week from 15 units) Humalog scale 0-10 units doesn't get insulin at his day program Glucose running high 300's Reports low sugars none Family history of T2DM on father's side Has eyes checked yearly, last eye exam 11/2023, retinopathy. Denies neuropathy Had [facility] recent hosp stay Has HLD, on statin PFSH Medical History Gout Hyperlipidemia Intellectual disability Bipolar 1 disorder Saddle pulmonary embolus Diabetes insipidus High cholesterol Anxiety PTSD (post-traumatic stress disorder) Schizo affective schizophrenia Surgical History Hx of tooth extraction Hx of excision of mass Social History Household Members: Other Housing: Other Housing Other:: [facility]/Assisted living Alcohol intake: never Patient Tobacco Use Status: Never used Tobacco Advance Directives Date on File: 04/20/21 service: No Current occupational status: disabled Physical Exam Vital Signs: Last Vital Signs Pulse 105 H 07/08/24 10:48 BP 129/80 07/08/24 10:48 Pulse Ox 98 07/08/24 10:48 Oxygen Delivery Method Room Air 07/08/24 10:48 BMI result Body Mass Index 25.2 Absence of Cushingoid features. Absence of acromegalic features. Neck exam reveals nl size thyroid about 15 gms. No thyroid nodules palpable. No carotid bruits present. Lungs CTA. Heart S1 S2, Reg R/R. No M/R/ G. Skin exam reveals absence of vitiligo or acanthosis nigricans. Abdominal exam reveals Soft NT/ND with NA BS. No organomegaly present. Const Other: Absence of Cushingoid features. Absence of acromegalic features. Neck exam reveals nl size thyroid about 15 gms. No thyroid nodules palpable. Heart S1 S2, Reg R/R. No M/R G. Skin exam reveals absence of vitiligo or acanthosis nigricans. No edema Neck Other: . Extrem Other: Visual exam of foot performed. No ulcerations or open lesions. No onchomycosis, no callouses.Pulses 2 + distally Sensation intact to monofilament exam. Vibratory sensation sensed is intact with 128 Hz tuning fork Results UR Ketone Dip UR Ketone Dip Trace Last Edit by EMMA Huertas on 07/08/24 11:11 AMB Hemoglobin A1c AMB Hemoglobin A1c 9.9 % Last Edit by EMMA Huertas on 07/08/24 11:11 Results Reviewed Results Reviewed: Laboratory Last Values Glucose (Clinic) 549 mg/dL (60-115) H* 07/08/24 11:00 Hgb A1c (Clinic) 9.9 % (4.0-6.0) H 07/08/24 11:11 Ur Ketones (Stick) Trace 07/08/24 11:04 Assessment & Plan Assessment & Plan (1) Diabetes mellitus: Code(s): E11.9 - Type 2 diabetes mellitus without complications Category: Medical Plan: 48-year-old diabetic: care is complicated by PTSD and schizoaffective disorder with the an A1c of 9.9%. Patient and mother declined ambulance transport to ER but were willing to walk over. Patient has a glucose of 549 and trace ketone. We will require fluids and perhaps IV insulin and blood work in the ER. I have given the patient's mother a new titration scale and recommended that his insulin Lantus be increased to 30 units. The patient has a follow up appointment with me in 2 days' time so I can further adjust his scale and we will get him started on a freestyle Vera 3+. I gave the mother a copy of the titration scale also to bring to his day program as he should get a dose of insulin with the lunch meal. He was munir D -2023. I have placed an order for C-peptide and insulin antibodies in EHR. If he has blood work in the emergency room it would be helpful if these could also be drawn as I believe he may be a type 1 not type 2[address] the order for the new dosing of insulin with his pharmacy. His mother was advised should he be discharged tomorrow and has any high sugars that she could call me in the office during business hours otherwise I will see him back the following day. The patient had an opportunity to ask questions regarding treatment plan. The patient expressed understanding and agreement with the above treatment plan. The patient's mother is aware they should contact our office by phone for worsening glucose readings or for any low blood sugars which may warrant a change in diabetes medication. Compliance is encouraged with medications and any followup testing/consults which may have been ordered. The patient/mother had an opportunity to ask questions regarding treatment plan. The patient expressed understanding and agreement with the above treatment plan. Mother was advised that she could bring behavioral health care coordinator to the follow up appointment and then I can train them on freestyle Vera. The patient is aware they should contact our office by phone for worsening glucose readings or for any low blood sugars which may warrant a change in diabetes medication. Compliance is encouraged with medications and any followup testing/consults which may have been ordered. Orders: Orders AMB Hemoglobin A1c Today E11.9 - Type 2 diabetes mellitus without complications Islet Cell Antibody Scrn/Titer Today E11.9 - Type 2 diabetes mellitus without complications C Peptide Today E11.9 - Type 2 diabetes mellitus without complications AMB Ketone Urine Dipstick Today E11.9 - Type 2 diabetes mellitus without complications Medications: New insulin aspart U-100 (Novolog FlexPen U-100 Insulin aspart) 80-150 4 units 151-200 6 units 201-250 8 units 251-300 10 units 301-350 12 units over 350 14 units 1 sliding scale dose subcut USEASDIRECTD 30 days 6 mL 3RF blood-glucose meter,continuous (FreeStyle Vera 3 [place]) As directed for use with freestyle vera sensors 1 ea 0RF blood-glucose sensor (FreeStyle Vera 3 Plus Sensor device) As directed eery 15 days 2 ea 11RF Changed From insulin glargine (Lantus Solostar U-100 Insulin) in the morning 25 units subcut DAILY E23.2 - Diabetes insipidus To insulin glargine (Lantus Solostar U-100 Insulin) in the morning 30 units subcut DAILY E23.2 - Diabetes insipidus Patient Instructions: The patient was counseled to achieve a target A1C of 7% (154 avg). Fasting blood sugars should be 90-130 in the morning and less than 180 two hours after meals. Reviewed the relationship between poor diabetic control and the development of complications. Take 15 carb carbohydrate grams to treat a low sugar (3-4 glucose tablets, half a glass of juice or 15 carbohydrate grams of soft candy such as gummie snacks). Recheck your sugar in 15 minutes and re-treat again with 15 carbohydrate grams if low or still with symptoms. Do not drive a car or operate machinery if you do not know what your blood sugar is, if it is low or in excess of 300. Check your feet daily looking for any signs of infection, drainage, redness, ulceration and seek medical attention if this occurs. Break in shoes gradually and do not wear open-toed shoes or walk stocking footed or barefooted. sick day management reviewed Coding Level of Care Code New Pt Level 4 (56916) Complex EM visit Add On G2211 Diagnoses Diabetes mellitus E11.9 Time Spent (min) 30 Comment Time spent reviewing labs/provider notes, face to face, chart doc
[2024-07-08 10:48] VITALS: BP 129/80; PULSE 105; O2SAT 98; BMI 25.2
[2024-07-08 11:06] LABS: Glucose, Whole Blood 549 mg/dL (60-115)
--- OUTSIDE RECORDS SUMMARY | 2024-07-08 12:47 | XMS_ITS ---
Author Organization [facility] Address [address] [place] [address] Care Team Providers Care Manpower Development Manager Name Role Phone Trevor Conley MD Primary Care Provider Naveen Flores Jr [phone] REASON FOR VISIT screening Encounters Encounter Location Date Provider Diagnosis [facility] [address] [place] [phone] 05/23/2024 Naveen Yang Jr Colon cancer screening Z12.11 Assessments Encounter Date Diagnosis (ICD Code) Assessment Notes Treatment Notes Treatment Clinical Notes Section Notes 05/23/2024 Colon cancer screening (ICD-10 - Z12.11) Plan Of Treatment No Information Progress Notes * ANA FERMIN ADOB:1975 (49 yo M)Acc No.[id number]:05/23/2024 COLON WITH MAC Patient:?SAM PEREZIN Dimitrios Provider:?Naveen Yang MD :1975???Age:48 Y???Sex:Male Prosper e:05/23/2024 Address:[address] [place], [place] [phone] Pcp:Trevor Conley MD Subjective: * Chief Complaints: * ???1. Screening. * Medical History:? Objective: * Vitals:? Assessment: * Assessment: 1.?Colon cancer screening - Z12.11 (Primary)??? Plan: * Treatment: * Procedure Codes:?69408 DIAGN OSTIC COLONOSCOPY, 0528F RCMND FLW-UP 10 YRS DOCD * * The named appointment provid er may or may not be the originator of this progress note, and it is not deemed complete until electronically signed by the appointment provider. Sign off status: Pending * Provider:?Naveen Yang MD Date:?0 05/23/2024 Generated for Luz burris/Danny/Nadine on:?07/08/2024 12:47 PM EDT
--- OUTSIDE RECORDS SUMMARY | 2024-07-08 12:47 | XMS_ITS ---
Author Organization [facility] Address [address] [place] [address] Care Team Providers Care Material Handling Technician Name Role Phone Trevor Conley MD Primary Care Provider UnavailMarcus Huber [phone] REASON FOR VISIT Reschedule Encounters Encounter Location Date Provider Diagnosis [address] [address] 02/18/2024 Marcus Tracey Plan Of Treatment Next Appt Details Provider Name:Marcus Tracey , 08/19/2024 04:00:00 PM, [address] [place] [address], [phone], Progress Notes * Moises SIMMONSinDOB:1975 ( 48 yo M)Acc No.[id number]:02/18/2024 Patient:?Gautam Simmons :1975???Age:48 Y???Sex:Male Address:[address] , [address] [place], [address] * true * Date:? Generated for Printi ng/Faxing/eTransmitting on:?07/08/2024 12:47 PM EDT
--- OUTSIDE RECORDS SUMMARY | 2024-07-08 12:47 | XMS_ITS ---
Author Organization [facility] Address [address] [place] [address] Care Team Providers Care Polymerization Oven Tender Name Role Phone Trevor Conley MD Primary Care Provider Naveen Flores Jr REASON FOR VISIT eliquis note Encounters Encounter Location Date Provider Diagnosis [facility] [address] [place] [phone] 05/19/2024 Naveen Yang Jr Plan Of Treatment No Information Progress Notes * FERMIN PEREZ ADOB:1975 (48 yo M)Acc No.[id number]:05/19/2024 Patient:?FERMIN PEREZ :1975???Age:48 Y???Sex:Male Address:[address] [place] [phone] * true * Date:? Generated for Luz burris/Danny/eTransmitting on:?07/08/2024 12:47 PM EDT
--- OUTSIDE RECORDS SUMMARY | 2024-07-08 12:47 | XMS_ITS | Clinical Summary ---
Author Organization [employer] Address [address] [place] [address] [address] [place] [address] Care Team Providers Care Shoe Caser Name Role Phone Unavailable Primary Care Provider Unavailabl e Allergies No known active allergies Medications clindamycin (Cleocin) 150 MG capsule 2 caps one hour prior to dental procedure 4 capsule 4 Active Encounters Date Type Department Care Team Description 07/02/2024 Telephone [facility] [address] [place] [address] Sudhir Weinstein DMD from Last 3 Months [...] Most Recently Relevant to Health Maintenance Insurance [facility] MEDICA[facility] STAND ADULT Member Subscriber Plan / Payer (Ef fective 2022-Present) Name:TroyMoisesin Relation to Subscriber:Self Name:SimmonsMoisesin Payer ID:Not on file Group ID:Not on file Type:Not on file Address: [place] [phone]
--- OUTSIDE RECORDS SUMMARY | 2024-07-08 12:47 | XMS_ITS | Patient Health Record ---
Author Organization [facility] Address [address] [place] [address] Care Team Providers Care Rubber Goods Inspector Tester Name Role Phone Trevor Conley MD Primary Care Provider Marcus Bonds Unavailable [phone] Allergies Allergen (clinical drug ingredient) Drug/Non Drug [...] Problem Acquired hammer toe of right foot (92347024286971 05) Other hammer toe(s) (acquired), right foot (M20.41) Active confirmed Response to treatment,I mprovement Problem Acquired hammer toe of left foot (62964320216954 03) Other hammer toe(s) (acquired), left foot (M20.42) Active confirmed Response to treatment,I mprovement Problem Type 2 diabetes mellitus without complication (931119822) Type 2 diabetes mellitus without complication (E11.9) Active confirmed Vital Signs Blood pressure diastolic 70 mm Hg 05/13/2024 Height 5ft 6in in 05/13/2024 Blood pressure systolic 118 mm Hg 05/13/2024 Weight 166 lbs 05/13/2024 BMI 26.79 kg/m2 05/13/2024 Procedures Procedure Date Ordered Date Performed Result Body Sit e 59776-FLDZNUQ NAIL, 6 OR MORE 09/25/2023 N/A 06764-[id number] NAIL, 6 OR MORE 05/13/2024 N/A Encounters Encounter Location Date Provider Diagnosis [facility] [address] [place] [address] 09/25/2023 Marcusblaze Tracey Pain in right toe(s) M79.674 ; Tinea unguium B35.1 ; Pain in left toe(s) M79.675 ; Type 2 diabetes mellitus without complication E11.9 ; Xerosis of skin L85.3 ; Other hammer toe(s) (acquired), left foot M20.42 and Other hammer toe(s) (acquired), right foot M20.[address] [address] 05/13/2024 Marcus Tracey Pain in right toe(s) M79.674 ; Tinea unguium B35.1 ; Pain in left toe(s) M79.675 ; Type 2 diabetes mellitus without complication E11.9 ; Other hammer toe(s) (acquired), right foot M20.41 and Other hammer toe(s) (acquired), left foot M20.[address] [address] 12/25/2023 Marcus Tracey [address] [address] 02/18/2024 Marcus Tracey Assessments Encounter Date Diagnosis [...] Treatment Pending Test Test Name Order Date [id number] NAIL, 6 OR MORE 02/03/2020 [id number] NAIL, 6 OR MORE 05/07/2020 [id number] NAIL, 6 OR MORE 08/10/2020 86416-[id number] NAIL, 6 OR MORE 11/26/2020 [id number] NAIL, 6 OR MORE 03/04/2021 [id number] NAIL, 6 OR MORE 06/07/2021 [id number] NAIL, 6 OR MORE 09/06/2021 [id number] NAIL, 6 OR MORE 01/20/2022 [id number] NAIL, 6 OR MORE 06/13/2022 [id number] NAIL, 6 OR MORE 09/19/2022 [id number] NAIL, 6 OR MORE 12/26/2022 [id number] NAIL, 6 OR MORE 03/27/2023 [id number] NAIL, 6 OR MORE 06/26/2023 [id number] NAIL, 6 OR MORE 09/25/2023 [id number] NAIL, 6 OR MORE 05/13/2024 Next Appt Details Provider Name:Marcus Tracey , 08/19/2024 04:00:00 PM, [address] [facility], [place], [address], Insurance Providers Payer Name Payer Address Payer Phone Subscriber Number Group Number Insured Name Patient Relationship to Insured Coverage Start Date Coverage End Date Medicare National [employer] [address] [facility] [place] [address] [id number] Troy Gautam Self - patient is the insured Medical (General) History Medical History History ICD Code Anxiety Depression Gout Psychiatric disorder Chicken pox type II diabetes ptsd CAD (Cholesterol) Mild Retardation Surgical History Surgery Date(Month/Year) Hospitalization History Reason Date(Month/Year) [facility] ER sodium too high 12/23
--- OUTSIDE RECORDS SUMMARY | 2024-07-08 12:48 | XMS_ITS ---
Author Organization [facility] Address [address] [place] [address] Care Team Providers Care Yield Improvement Engineer Name Role Phone Trevor Conley MD Primary Care Provider Naveen Flores Jr REASON FOR VISIT nurse order Encounters Encounter Location Date Provider Diagnosis [facility] [address] [place] [address] 05/14/2024 Naveen Yang Jr Plan Of Treatment No Information Progress Notes * FERMIN PEREZ ADOB:1975 (48 yo M)Acc No.[id number]:05/14/2024 Patient:?FERMIN PEREZ :1975???Age:48 Y???Sex:Male Address:[address] [place] [address] * true * Date:? Generated for Luz burris/Danny/eTransmitting on:?07/08/2024 12:48 PM EDT
--- OUTSIDE RECORDS SUMMARY | 2024-07-08 12:48 | XMS_ITS | Encounter Summary ---
Author Organization [facility] [employer] Address [address] [facility] 7t [place] [address] Care Team Providers Care Small Engine Specialist Name Role Phone Unavailable Primary Care Provider [...]
--- OUTSIDE RECORDS SUMMARY | 2024-07-08 12:48 | XMS_ITS ---
Author Organization [facility] Address [address] [place] [address] Care Team Providers Care Brake Assembler Name Role Phone Trevor Conley MD Primary Care Provider Marcus Bonds Unavailable [phone] Encounters Encounter Location Date Provider Diagnosis [facility] [address] [place] [address] 02/19/2024 Marcus Tracey Plan Of Treatment Next Appt Details Provider Name:Marcus Tracey , 08/19/2024 04:00:00 PM, [address] [place] [address], [phone], Progress Notes * ANA MoisesKarenOB:1975 ( 49 yo M)Acc No.[id number]:02/19/2024 Progress Note Patient:?Gautam SIMMONS Provider:?Marcus Tracey DPM :1975???Age:48 Y???Sex:Male Prosper e:02/19/2024 Address:[address] , [address] [place], [place] [phone] Pcp:Trevor Conley MD Subjective: * Chief Complaints: [...] Tracey DPM Date:?2023 Generated for Luz burris/Danny/Nadine on:?07/08/2024 12:47 PM EDT
--- OUTSIDE RECORDS SUMMARY | 2024-07-08 12:48 | XMS_ITS ---
Author Organization [facility] Address [address] [place] [address] Care Team Providers Care Systems Requirements Planner Name Role Phone Trevor Conley MD Primary Care Provider Unavaila Marcus Almanza Unavailable [phone] Allergies Allergen (clinical drug ingredient) Drug/Non Drug [...] Ordered Date Performed Result Body Sit e 30781-AVAZVZI NAIL, 6 OR MORE 05/13/2024 N/A Encounters Encounter Location Date Provider Diagnosis [facility] [address] [address] 05/13/2024 Marcus Blackunier Pain in right toe(s) [...] Treatment Pending Test Test Name Order Date 84857-ZIRZGTN NAIL, 6 OR MORE 05/13/2024 Next Appt Details Follow Up: prn, Reason: Provider Name:Marcus Tracey , 08/19/2024 04:00:00 PM, [address] [place] [address], [phone], Procedure Notes * Category Sub-Category Detail [...] use of a nail nipper and/or dremel-type bearing grinder, to a more viable healthy nail [...] * Moises SIMMONSinDOB:1975 ( 48 yo M)Acc No.[id number]:05/13/2024 Progress Note Patient:?SIMMONS Gautam Provider:?Marcus Tracey DPM :1975???Age:48 Y???Sex:Male Prosper e:05/13/2024 Address:[address] , [address] [facility], [place], [place] Pcp:Trevor Conley MD Subjective: * Chief Complaints: [...] segura Surgical History * Hospitalization/Major Diagno stic Procedure:?[facility] ER sodium too high 01/15/2020 * Family [...] use of a nail nipper and/or dremel-type bearing grinder, to a more viable healthy nail [...] to maintain effectiveness in symptomatic relief - [address]809.? * Procedure Codes:?23402 DEBRI DE NAIL, 6 OR [id number] Pall serv during david * Preventive Medicine:? [...] Tracey DPM Date:?2024 Generated for Luz burris/Danny/Nadine on:?07/08/2024 12:47 PM EDT History and Physical Notes * [...]
--- OUTSIDE RECORDS SUMMARY | 2024-07-08 12:48 | XMS_ITS | Patient Health Record ---
Author Organization [facility] Address [address] [place] [address] Care Team Providers Care Armature Winder Name Role Phone Trevor Conley MD Primary Care Provider Naveen Flores Jr Unavailable [phone] Allergies Allergen (clinical drug ingredient) Drug/Non Drug Allergy documented on EMR Reaction Allergy Type Onset Date Status Penicillin Unknown Drug Allergy Active Results Component Value Reference Range Notes Glucose, Whole Blood Reviewed date:05/23/2024 09:24:07 PM Interpretation: Performing Lab:[facility], [address] [place] [address] Notes/Report: Glucose, Whole Blood 233 60-115 mg/dL METER # : [id number] Reason For Referral No Information Medications Medication [...] Problem Status W/U Status Risk Notes Problem 543512423 Colon cancer screening (Z12.11) Active confirmed Problem 485417966 skilled nursing (curre nt) use of anticoagulants (Z79.01) Active confirmed Problem 833593820 Long-term curren t use of high risk medication other than anticoagulant (Z79.899) Active confirmed Vital Signs Blood pressure diastolic 00 mm Hg 05/01/2024 Height 5 ft 7 in in 05/01/2024 Blood pressure systolic 00 mm Hg 05/01/2024 Weight 171 lbs 05/01/2024 BMI 26.78 kg/m2 05/01/2024 Encounters Encounter Location Date Provider Diagnosis [facility] [address], [place] [phone] 05/23/2024 Naveen Yang Jr Colon cancer screening Z12.11 [facility] [address] [place] [address] 05/01/2024 Naveen Yang Jr Colon cancer screening Z12.11 ; Long-term current use of high risk medication other than anticoagulant Z79.899 and skilled nursing (current) use of anticoagulants Z79.01 [facility] [address] [place] [address] 05/14/2024 Naveen Yang Jr [facility] [address] [place] [address] 05/19/2024 Naveen Yang Jr Assessments Encounter Date [...] insulin the night before the prep. 05/01/2024 watermaster (current) use of anticoagulants (ICD-10 - Z79.01) [...] [place] [address] [address] [id number] FERMIN PEREZ Self - patient is the insured MEDICAID OF [place] [address] [place] [address] [id number] FERMIN PEREZ Self - patient is the insured Medical (General) History Medical History History ICD Code Diabetes mellitus type 2 Pulmonary embolus Schizoaffective disorder bipolar disorder Intellectual disability PTSD Hyperlipidemia Surgical History Surgery Date(Month/Year) Excision of right axillary lesion
--- OUTSIDE RECORDS SUMMARY | 2024-07-08 12:48 | XMS_ITS | Encounter Summary ---
Author Organization [facility] [employer] [facility] Address [address] [facility] 7t [place] [address] Care Team Providers Care Diesel Bus Mechanic Name Role Phone Unavailable Primary Care Provider Unavailabl e Encounter Details Date Type Department Care Team (Late st Contact Info) Description 07/02/2024 Telephone [facility] [address] [place] [address] Sudhir Weinstein, DMD [address] [place] [address] Social History Tobacco Use Types Packs/Day Years [...] explained that now patient lives with his congregational care pastor and she will reach patients mother to call us back to schedule this appointment. documented in this encounter Plan of Treatment Not on file documented as of this encounter Visit Diagnoses Not on filedocumented in this encounter
== END 2024-07-08 11:35 | disposition home or self-care (01) ==
LOC: HO.ENCR 10:47
PROVIDERS: PCP Internal Medicine; Visit Provider Nurse Practitioner Adult Health
DX: E11.9 Type 2 diabetes mellitus without complications (principal)
CPT/HCPCS: 99204; G2211

== ENCOUNTER 2024-07-08 11:38 | Emergency (ER) | payer MEDICARE, MEDICAID, SELFPAY ==
--- NOTE | 2024-07-08 11:50 | ED.GENADULT ---
HPI - General Adult General Chief complaint: General Medical Stated complaint: High blood sugar Time Seen by Provider: 07/08/24 13:36 Source: patient, family and RN notes reviewed Mode of arrival: ambulatory Limitations: no limitations History of Present Illness ED Provider: Shantel Campbell PA-C HPI narrative: This is a 49-year-old male, with a history of diabetes, PE on Eliquis, hyperlipidemia, bipolar 1 disorder, PTSD, schizoaffective schizophrenia, and diabetes on insulin, who presents emergency department with concerns for hyperglycemia. Mother is here with patient, and mother reports that patient goes to an adult day program where they only monitor his sugar once in the morning and once at bedtime, and it does not appear that they utilize a sliding scale. Mother states that patient's blood glucose levels have been between 305 100 for several months. They went to the fire control officer office today and was told to report to the emergency room due to glucose of 549 and trace ketones. Patient reports that he was feeling very well, no recent illness. He denies any headache, dizziness, blurred vision, chest pain, shortness for breath, abdominal pain, nausea, vomiting or diarrhea. Denies any pain with urination. No other complaints or concerns at this time. MD complaint: Hyperglycemia Relieving factors: none Exacerbating factors: none Associated symptoms: denies other symptoms Treatments prior to arrival: none Related Data Home Medications ?Medication ?Instructions ?Recorded ?Confirmed ascorbic acid (vitamin C) 500 mg 1 tab PO DAILY 03/02/20 07/08/24 tablet (Vitamin C) cholecalciferol (vitamin D3) 25 1 cap PO DAILY 03/02/20 07/08/24 mcg (1,000 unit) capsule (Vitamin D3) clozapine 100 mg tablet 300 mg PO BEDTIME 03/02/20 07/08/24 clozapine 50 mg tablet 50 mg PO DAILY 03/02/20 07/08/24 fluticasone propionate 50 1 spray intranasal BID 03/02/20 07/08/24 mcg/actuation nasal spray,suspension haloperidol 5 mg tablet 5 mg PO BEDTIME 03/02/20 07/08/24 metformin 1,000 mg tablet 1 tab PO BID 03/02/20 07/08/24 multivitamin 1 tab PO DAILY 03/02/20 07/08/24 sertraline 100 mg tablet 1.5 tab PO DAILY 03/02/20 07/08/24 simvastatin 80 mg tablet 1 tab PO DAILY 03/02/20 07/08/24 allopurinol 100 mg tablet 100 mg PO DAILY 06/09/20 07/08/24 apixaban 2.5 mg tablet (Eliquis) 2.5 mg PO BID 07/02/23 07/08/24 clonazepam 1 mg tablet 0.5 mg PO BID 07/02/23 07/08/24 insulin glargine 100 unit/mL (3 30 unit subcut DAILY 07/08/24 07/08/24 mL) subcutaneous pen (Lantus Solostar U-100 Insulin) Previous Rx's ?Medication ?Instructions ?Recorded alcohol swabs 1 pad topical QIDACHS #100 ea 07/04/23 blood-glucose meter,continuous #1 ea 07/08/24 (FreeStyle Vera 3 [place]) blood-glucose sensor (FreeStyle #2 ea 07/08/24 Vera 3 Plus Sensor device) insulin aspart U-100 100 unit/mL 1 sliding scale dose subcut 07/08/24 (3 mL) subcutaneous pen (Novolog USEASDIRECTD 30 days #6 mL FlexPen U-100 Insulin aspart) pen needle, diabetic 32 gauge x #200 ea 07/08/24 Allergies Allergy/AdvReac Type Severity Reaction Status Date / Time penicillin G Allergy Unknown Unknown Verified 07/08/24 11:53 Penicillins [PENICILLINS] Allergy Unknown Unknown Verified 07/08/24 11:53 Review of Systems Review of Systems: Yes all other systems are reviewed and are negative Constitutional: Constitutional: Reports as per [facility] Past Medical History Attestation statement: The following information was validated with the patient. Medical History Insulin dependent type 2 diabetes mellitus Gout Hyperlipidemia Intellectual disability Bipolar 1 disorder Saddle pulmonary embolus Diabetes insipidus High cholesterol Anxiety PTSD (post-traumatic stress disorder) Schizo affective schizophrenia Surgical History Hx of tooth extraction Hx of excision of mass Social History Social History Household Members: Other Housing: Other Housing Other:: longterm/Assisted living Alcohol intake: never Patient Tobacco Use Status: Never used Tobacco Advance Directives: Yes Advance Directives on File: Yes Advance Directives Date on File: 04/20/21 Do you have a plan to hurt others: No Plan service: No Current occupational status: disabled Physical Exam ED Vital Signs: Vital Signs - 24 hr 07/08/24 11:51 07/08/24 14:28 07/08/24 18:06 Temperature 97.6 F 97.6 F 98.3 F Pulse Rate 103 H 82 78 Respiratory Rate 20 18 14 Blood Pressure 117/81 150/96 H 158/83 H Pulse Oximetry 96 97 99 Oxygen Delivery Method Room Air Room Air Room Air 07/08/24 18:29 Temperature 98.3 F Pulse Rate 78 Respiratory Rate 14 Blood Pressure 158/83 H Pulse Oximetry 99 Oxygen Delivery Method Room Air BMI result Body Mass Index 24.9 Const General: cooperative, comfortable and no acute distress Orientation/consciousness: patient oriented x3 Limitations: no limitations HENMT Head: Yes normal to inspection, Yes normocephalic and Yes atraumatic Ears: hearing grossly normal bilaterally General nose exam: Normal external nose present Face and sinus: Yes normal facial exam Mouth: Normal oral and palatal mucosa present, oropharynx normal and moist mucous membranes Throat: Yes posterior oropharynx normal Eyes General: appearance normal, both eyes and all related structures Eyelids: Yes eyelids normal Conjunctivae: conjunctivae normal Sclerae: sclerae normal Pupils: Equal, round and reactive pupils present EOM: EOMs intact bilaterally Neck Neck: Yes normal visual inspection, Yes full ROM and Yes no lymphadenopathy Lymphatic: no lymphadenopathy noted Chest Chest palpation & inspection: normal inspection of the chest Resp Effort & Inspection: normal respiratory effort and able to speak in complete sentences Auscultation: clear to auscultation bilaterally, no crackles, no rales, no rhonchi and no wheezes Cardio Rate: regular rate Rhythm: regular rhythm Heart sounds: S1 normal heart sound present and S2 normal heart sound present GI Inspection: Yes normal to inspection Skin General skin exam: no rashes or lesions noted Trauma: no lacerations or abrasions Wounds: no wounds Neuro General: patient oriented x3 and moves all extremities Cranial nerves: Yes Equal, round and reactive pupils present Extrem General: Yes normal to inspection Right upper extremity: normal to inspection Left upper extremity: normal to inspection Right lower extremity: normal to inspection Left lower extremity: normal to inspection Course Course Course Narrative: This is a rapid medical exam performed by Lisa Vallecillo PA-C. The patient is a 49-year-old male with a history of diabetes, schizoaffective schizophrenia, who presents with hyperglycemia for a month. No new med changes, the patient has been adherent with his medications, he is coming from endocrinology with elevated sugars in the 500s. The patient has no symptoms. We will be screening basic labs a beta hydroxy venous blood gas and a urinalysis. The patient was stable and can return to the waiting room pending his full medical assessment. Reevaluation(s) Reevaluation #1: Urine does not have any ketones, patient is not in DKA, he has no gap. After receiving 3 L of IV fluids, blood glucose down to 219. He is feeling well, eager for discharge. I advised patient to follow-up with the fire control officer, and to return with any worsening symptoms. I stressed the importance of utilizing the new medication plan that was given to mother and patient. I advised to closely monitor sugars, they understand and agree with plan. Patient stable for discharge. Medications Administered Discontinued Medications Generic Name Dose Route Start Last Admin Trade Name Freq PRN Reason Stop Dose Admin Lactated Ringer's 2,160 mls @ 2,160 mls/hr 07/08/24 13:39 07/08/24 15:03 Lr 30 ml/kg infuse over 1 hr (2160 ml) 07/08/24 14:38 Infused IV Infusion .Q1H ONE Lactated Ringer's 1,000 mls @ 999 mls/hr 07/08/24 15:42 07/08/24 16:52 Lr IV 07/08/24 16:42 Infused .Q1H1M ONE Infusion Insulin Human Lispro 5 unit 07/08/24 13:48 07/08/24 14:08 Insulin Lispro 100 Unit/Ml 3 Ml Vial SUBCUT 07/08/24 13:49 5 unit ONCE ONE Administration Medical Decision Making Medical Decision Making MDM Narrative: This is a 49-year-old male, with a past medical history of diabetes insipidus, who presents emergency department for evaluation of hyperglycemia. He presents from the endocrinology office as patient's blood glucose and office was 549, and he had trace ketones. On arrival, patient well-appearing under no acute distress. Labs were performed, random glucose 489 therefore 3 L of IV fluid was ordered as well as 5mg of subcu insulin was immediately administered. Per mother, it appears as though patient has not been utilizing insulin at the day program and that his blood glucose level has only been monitored in the morning and at night. Mother states that they had spoken with the fire control officer today and they are switching up the insulin regimen. Plan: Labs, EKG, UA, vbg Differential Diagnosis Differential Diagnoses: The differential diagnosis associated with the presentation includes Hyperglycemia, medication noncompliance, UTI, STEMI-unlikely, DKA, HHS Admission/Observation Consideration of admission/observation: Escalation of care including admission/observation considered Escalation of care including admission/observation considered however given workup today not warranted at this time. Lab Data MDM Lab Attestation statement: I reviewed the patient's lab results. See course comment 07/08/24 12:19 07/08/24 12:19 Labs: Lab Results 07/08/24 07/08/24 07/08/24 Range/Units 12:19 12:26 15:04 WBC 6.9 (4.8-10.8) X10*3/uL RBC 4.97 (4.60-5.80) X10*6/uL Hgb 14.3 (14.0-18.0) g/dl Hct 41.3 L (42.0-52.0) % MCV 83.1 (80.0-98.0) fL MCH 28.8 (27.0-33.0) pg MCHC 34.6 (31.0-36.0) g/dl RDW 13.4 (11.0-16.0) % Plt Count 173 (160-400) X10*3/uL MPV 10.6 (9.4-12.4) fL Immature Gran % (Auto) 0.1 (0.0-0.4) % Neut % (Auto) 62.3 (45-73) % Lymph % (Auto) 23.6 (20-40) % [place] % (Auto) 5.1 (2-11) % Eos % (Auto) 8.3 H (0-4) % Baso % (Auto) 0.6 (0-2) % Lymph # (Auto) 1.6 (1.2-4.9) X10*3/uL [place] # (Auto) 0.4 (0.1-1.2) X10*3/uL Eos # (Auto) 0.6 H (0.0-0.4) X10*3/uL Baso # (Auto) 0.0 (0.0-0.2) X10*3/uL Abs Immat Gran (auto) 0.01 (0.00-0.03) X10*3/uL Absolute Neuts (auto) 4.3 (2.0-8.3) x10*3/uL Absolute Nucleated RBC 0.000 (0.0-0.012) X10*3/uL Nucleated RBC % (auto) 0.0 (0.0-0.2) /100WBC VBG pH 7.39 (7.32-7.43) VBG pCO2 36 mmHg VBG pO2 164 mmHg VBG HCO3 22 (22-26) mmol/L VBG O2 Saturation 100.0 % VBG Base Excess -2.3 mmol/L Sodium 137 (135-145) mmol/L Potassium 4.1 (3.3-5.1) mmol/L Chloride 105 (96-108) mmol/L Carbon Dioxide 21 L (22-29) mmol/L Anion Gap 15 (12-20) BUN 17 H (9-16) mg/dL Creatinine 1.28 (0.5-1.4) mg/dL Estim Creat Clear Calc 66.7 Estimated GFR > 60 POC Glucose 262 H (60-115) mg/dL Random Glucose 489 H* (60-115) mg/dL Calcium 9.4 (8.4-10.2) mg/dL Magnesium 1.8 (1.6-2.6) mg/dL Total Bilirubin 0.3 (0.0-1.0) mg/dL AST 20 (5-37) U/L ALT 36 (0-40) U/L Alkaline Phosphatase 129 H (39-117) U/L Troponin I High Sens < 2.7 (<3.5-35.0) ng/L Total Protein 7.8 (6.5-8.0) g/dL Albumin 4.3 (3.5-5.0) g/dL Lipase 47 (8-78) U/L Beta-Hydroxybutyrate 0.28 H (0.02-0.27) mmol/L Urine Color Yellow Urine Appearance Clear Urine pH 5.5 (5.0-9.0) Ur Specific [place] 1.020 (1.005-1.025) Urine Protein Negative (Neg-Trace) mg/dL Urine Glucose (UA) >=1000 H (Negative) mg/dL Urine Ketones Negative (Negative) mg/dL Urine Blood Negative (Negative) Urine Nitrite Negative (Negative) Ur Leukocyte Esterase Negative (Negative) Urine RBC 0-2 (0-2) /HPF Urine WBC 0-5 (0-5) /HPF Ur Squamous Epith Cells 0-2 (0-2) /HPF Urine Bacteria None Seen (None Seen) Hyaline Casts 0-2 (0-2) /LPF 07/08/24 07/08/24 Range/Units 16:54 17:48 WBC (4.8-10.8) X10*3/uL RBC (4.60-5.80) X10*6/uL Hgb (14.0-18.0) g/dl Hct (42.0-52.0) % MCV (80.0-98.0) fL MCH (27.0-33.0) pg MCHC (31.0-36.0) g/dl RDW (11.0-16.0) % Plt Count (160-400) X10*3/uL MPV (9.4-12.4) fL Immature Gran % (Auto) (0.0-0.4) % Neut % (Auto) (45-73) % Lymph % (Auto) (20-40) % [place] % (Auto) (2-11) % Eos % (Auto) (0-4) % Baso % (Auto) (0-2) % Lymph # (Auto) (1.2-4.9) X10*3/uL [place] # (Auto) (0.1-1.2) X10*3/uL Eos # (Auto) (0.0-0.4) X10*3/uL Baso # (Auto) (0.0-0.2) X10*3/uL Abs Immat Gran (auto) (0.00-0.03) X10*3/uL Absolute Neuts (auto) (2.0-8.3) x10*3/uL Absolute Nucleated RBC (0.0-0.012) X10*3/uL Nucleated RBC % (auto) (0.0-0.2) /100WBC VBG pH (7.32-7.43) VBG pCO2 mmHg VBG pO2 mmHg VBG HCO3 (22-26) mmol/L VBG O2 Saturation % VBG Base Excess mmol/L Sodium (135-145) mmol/L Potassium (3.3-5.1) mmol/L Chloride (96-108) mmol/L Carbon Dioxide (22-29) mmol/L Anion Gap (12-20) BUN (9-16) mg/dL Creatinine (0.5-1.4) mg/dL Estim Creat Clear Calc Estimated GFR POC Glucose 213 H (60-115) mg/dL Random Glucose (60-115) mg/dL Calcium (8.4-10.2) mg/dL Magnesium (1.6-2.6) mg/dL Total Bilirubin (0.0-1.0) mg/dL AST (5-37) U/L ALT (0-40) U/L Alkaline Phosphatase (39-117) U/L Troponin I High Sens 3.0 (<3.5-35.0) ng/L Total Protein (6.5-8.0) g/dL Albumin (3.5-5.0) g/dL Lipase (8-78) U/L Beta-Hydroxybutyrate (0.02-0.27) mmol/L Urine Color Urine Appearance Urine pH (5.0-9.0) Ur Specific [place] (1.005-1.025) Urine Protein (Neg-Trace) mg/dL Urine Glucose (UA) (Negative) mg/dL Urine Ketones (Negative) mg/dL Urine Blood (Negative) Urine Nitrite (Negative) Ur Leukocyte Esterase (Negative) Urine RBC (0-2) /HPF Urine WBC (0-5) /HPF Ur Squamous Epith Cells (0-2) /HPF Urine Bacteria (None Seen) Hyaline Casts (0-2) /LPF Independent Interpretation I performed an independent interpretation of an: EKG Interpretation: EKG normal sinus rhythm at a ventricular rate of 94 beats per minute, no STEMI. ?Slight change from previous from March 02, 2020 > troponins x2 negative. Discharge Plan Discharge Clinical Impression: Hyperglycemia, Diabetes insipidus, Diabetes mellitus Patient Disposition: Home, Self-Care Instructions: Diabetes Insipidus (ED), Type 2 Diabetes in Adults: New Diagnosis (ED), How to Give an Insulin Injection (ED), Diabetic Hyperglycemia (ED), Diabetes and Your Skin (ED), Diabetes and Your Mouth (ED), Diabetes and Nutrition (ED), Diabetes and Exercise (ED), How to Check your Blood Sugar (ED) Additional Instructions: You were seen in the emergency department due to elevated blood sugars. Your blood sugar came down after receiving insulin as well as 3 L of IV fluids. Please follow-up with your fire control officer and follow the instructed insulin dosing. If any new or worsening symptoms occur including but not limited to chest pain, shortness of breath, please seek emergent care. Your blood work was otherwise reassuring. Prescriptions: No Action multivitamin Tablet 1 tab PO DAILY haloperidol 5 mg Tablet 5 mg PO BEDTIME clozapine 100 mg tablet 300 mg PO BEDTIME sertraline 100 mg tablet 1.5 tab PO DAILY simvastatin 80 mg tablet 1 tab PO DAILY ascorbic acid (vitamin C) [Vitamin C] 500 mg tablet 1 tab PO DAILY metformin 1,000 mg tablet 1 tab PO BID fluticasone propionate 50 mcg/actuation spray,suspension 1 spray intranasal BID cholecalciferol (vitamin D3) [Vitamin D3] 25 mcg (1,000 unit) capsule 1 cap PO DAILY clozapine 50 mg Tablet 50 mg PO DAILY clonazepam 1 mg tablet 0.5 mg PO BID Eliquis 2.5 mg tablet 2.5 mg PO BID alcohol swabs Pads, Medicated 1 pad TOPICAL QIDACHS Qty: 100 0RF Rx Instructions: Use four times a day or as directed. allopurinol 100 mg tablet 100 mg PO DAILY insulin glargine [Lantus Solostar U-100 Insulin] 100 unit/mL (3 mL) insulin pen 30 unit SUBCUT DAILY Rx Instructions: in the morning insulin aspart U-100 [Novolog FlexPen U-100 Insulin] 100 unit/mL (3 mL) insulin pen 1 sliding scale dose subcut USEASDIRECTD 30 Days Qty: 6 3RF Rx Instructions: 80-150 4 units 151-200 6 units 201-250 8 units 251-300 10 units 301-350 12 units over 350 14 units (DME) pen needle, diabetic 32 gauge x 5/32 needle See Rx Instructions .ROUTE .MEDSUPPLY Qty: 200 6RF Rx Instructions: qid (DME) FreeStyle Vera 3 Plus Sensor Device See Rx Instructions .ROUTE .MEDSUPPLY Qty: 2 11RF Rx Instructions: As directed eery 15 days (DME) FreeStyle Vera 3 [place] Misc See Rx Instructions .ROUTE .MEDSUPPLY Qty: 1 0RF Rx Instructions: As directed for use with freestyle vera sensors Interventions: ED Discharge Assessment Last Done: 07/08/24 18:29 Discharge Date/Time: 07/08/24 18:29 Print Language: Albanian
[2024-07-08 11:51] VITALS: BP 117/81; PULSE 103; RESP 20; TEMP 36.4; O2SAT 96; BMI 24.9
[2024-07-08 12:25] LABS: MANUAL DIFF FLAG NO
[2024-07-08 12:27] LABS: Basophils Percent Auto 0.6 % (0-2); Eosinophils Absolute Auto 0.6 X10*3/uL (0.0-0.4); Eosinophils Percent Auto 8.3 % (0-4); Hematocrit 41.3 % (42.0-52.0); Hemoglobin 14.3 g/dl (14.0-18.0); Imm Gran Abs Auto 0.01 X10*3/uL (0.00-0.03); Imm Gran Pct Auto 0.1 % (0.0-0.4); Lymphocytes Absolute Auto 1.6 X10*3/uL (1.2-4.9); Lymphocytes Percent Auto 23.6 % (20-40); Mean Corpuscular HGB Conc 34.6 g/dl (31.0-36.0); Mean Corpuscular Hemoglobin 28.8 pg (27.0-33.0); Mean Corpuscular Volume 83.1 fL (80.0-98.0); Mean Platelet Volume 10.6 fL (9.4-12.4); Monocytes Absolute Auto 0.4 X10*3/uL (0.1-1.2); Monocytes Percent Auto 5.1 % (2-11); Neutrophils Absolute Auto 4.3 x10*3/uL (2.0-8.3); Neutrophils Percent Auto 62.3 % (45-73); Platelet Count 173 X10*3/uL (160-400); Red Blood Count 4.97 X10*6/uL (4.60-5.80); Red Cell Distribution Width 13.4 % (11.0-16.0); White Blood Count 6.9 X10*3/uL (4.8-10.8)
[2024-07-08 12:30] LABS: VBG Base Excess -2.3 mmol/L; VBG HCO3 22 mmol/L (22-26); VBG pCO2 36 mmHg; VBG pH 7.39 (7.32-7.43); VBG pO2 164 mmHg
[2024-07-08 12:31] LABS: Appearance Urine Clear; Color Urine Yellow; Glucose Urine UA >=1000 mg/dL (Negative); Leukocyte Esterase Urine Negative (Negative); Nitrite Urine Negative (Negative); PH 5.5 (5.0-9.0); UMIC TRIGGER UACC YES; Urine Blood Negative (Negative); Urine Ketones Negative (Negative); Urine Protein Negative (Neg-Trace); Venous Blood Gas Refer to POC result
[2024-07-08 12:36] LABS: Bacteria Urine None Seen (None Seen); Hyaline Casts Urine 0-2 /LPF (0-2); RBC Urine 0-2 /HPF (0-2); Squamous Epithelial Cell Urine 0-2 /HPF (0-2); WBC Urine 0-5 /HPF (0-5)
[2024-07-08 12:50] LABS: Alanine Aminotransferase 36 U/L (0-40); Albumin Level 4.3 g/dL (3.5-5.0); Alkaline Phosphatase 129 U/L (39-117); Anion Gap 15 (12-20); Aspartate Amino Transferase 20 U/L (5-37); Bilirubin Total 0.3 mg/dL (0.0-1.0); Blood Urea Nitrogen 17 mg/dL (9-16); Calcium 9.4 mg/dL (8.4-10.2); Carbon Dioxide 21 mmol/L (22-29); Chloride 105 mmol/L (96-108); Creatinine Clr Calc Pharmacy 66.7; Estimated Glomerular Filt Rate > 60; Glucose Random 489 mg/dL (60-115); Magnesium 1.8 mg/dL (1.6-2.6); Potassium 4.1 mmol/L (3.3-5.1); Sodium 137 mmol/L (135-145); Total Protein 7.8 g/dL (6.5-8.0)
--- NOTE | 2024-07-08 13:48 | ECG_ITS ---
Test Reason : HYPERGLYCEMIA Blood Pressure : */* mmHG Vent. Rate : 94 BPM Atrial Rate : 94 BPM P-R Int : 164 ms QRS Dur : 88 ms QT Int : 362 ms P-R-T Axes : 17 -20 39 degrees QTcB Int : 452 ms Normal sinus rhythm Minimal voltage criteria for LVH, may be normal variant ( R in aVL ) Septal infarct , age undetermined Abnormal ECG When compared with ECG of 02-Mar-2020 20:21, Septal infarct is now Present Nonspecific T wave abnormality no longer evident in Inferior leads Nonspecific T wave abnormality no longer evident in Anterior leads Referred By: Shantel Campbell Electronically Signed By: Farrukh Mello
[2024-07-08] MEDS: LACTATED RINGERS 2160 ML IV (14:03)
[2024-07-08] MEDS: Insulin Lispro 100 UNIT/ML 3 ML VIAL SUBCUT (14:08)
[2024-07-08 14:15] LABS: Beta-Hydroxybutyrate 0.28 mmol/L (0.02-0.27); Lipase 47 U/L (8-78)
[2024-07-08 14:28] VITALS: BP 150/96; PULSE 82; RESP 18; TEMP 36.4; O2SAT 97
[2024-07-08 14:29] LABS: Troponin-I High Sensitivity < 2.7 ng/L (<3.5-35.0)
[2024-07-08 15:08] LABS: Glucose, Whole Blood 262 mg/dL (60-115)
[2024-07-08] MEDS: Lactated Ringers 1,000 ML 999 ML IV (15:51)
[2024-07-08 17:53] LABS: Glucose, Whole Blood 213 mg/dL (60-115)
[2024-07-08 18:06] VITALS: BP 158/83; PULSE 78; RESP 14; TEMP 36.8; O2SAT 99
[2024-07-08 18:29] VITALS: BP 158/83; PULSE 78; RESP 14; TEMP 36.8; O2SAT 99
== END 2024-07-08 18:29 | disposition home or self-care (01) ==
PROVIDERS: Physician Assistant Medical; Emergency Provider Emergency Medicine Emergency Medical Services; PCP Internal Medicine
DX: E11.65 Type 2 diabetes mellitus with hyperglycemia (principal); E23.2 Diabetes insipidus; E78.5 Hyperlipidemia, unspecified; F20.9 Schizophrenia, unspecified; Z79.899 Other long term (current) drug therapy; Z79.4 Long term (current) use of insulin
CPT/HCPCS: 36415; 80053; 81001; 81002; 82010; 82803; 82947; 83036; 83690; 83735; 84484; 85025; 93005; 96360; 96361; 99202; 99284; J7120

== ENCOUNTER → 2024-07-08 13:48 | Outpatient (BNV) | payer MEDICARE, MEDICAID, SELFPAY | PROVIDERS: Emergency Provider Emergency Medicine Emergency Medical Services; PCP Internal Medicine; Visit Provider Internal Medicine Cardiovascular Disease | DX: R94.31 Abnormal electrocardiogram [ECG] [EKG] (principal); R73.9 Hyperglycemia, unspecified | CPT/HCPCS: 93010 ==

== ENCOUNTER 2024-07-10 13:44 | Outpatient (AMB) | payer MEDICARE, MEDICAID, SELFPAY ==
--- NOTE | 2024-07-10 08:39 | A.OFFVIS_ITS ---
Vital Signs 07/10/24 13:59 Height 5 ft 7 in BP 149/99 H Blood Pressure Location Rt brachial Position Sitting Pulse 101 H Pulse Source Pulse Oximeter Oxygen Delivery Method Room Air Intake Visit Reasons: T2DM Intake Note: Patient presents today to establish treatment for Type 2 Diabetes Mellitus: Last Diabetic eye exam was on: Within the year, next appt November Last Podiatry exam was on: Patient does not see a Correctional Classification Counselor Most recent HbA1c: 9.9%, 07/08/2024 Random Glucose- 347 mg/dL, Today Datapower Developer Required: No Accompanied by: Mother Allergies penicillin G Allergy (Unknown, Verified 07/08/24 11:53) Unknown Penicillins [PENICILLINS] Allergy (Unknown, Verified 07/08/24 11:53) Unknown Medication List - Last Reconciled 07/10/24 by Shireen Alvarado NP alcohol swabs 1 pad topical QIDACHS allopurinol 100 mg PO DAILY apixaban (Eliquis) 2.5 mg PO BID ascorbic acid (vitamin C) (Vitamin C) 1 tab PO DAILY cholecalciferol (vitamin D3) (Vitamin D3) 1 cap PO DAILY clonazepam 0.5 mg PO BID clozapine 50 mg PO DAILY clozapine 300 mg PO BEDTIME fluticasone propionate 50 mcg/actuation 1 spray intranasal BID haloperidol 5 mg PO BEDTIME insulin aspart U-100 (Novolog FlexPen U-100 Insulin aspart) 1 sliding scale dose subcut USEASDIRECTD 30 days insulin glargine (Lantus Solostar U-100 Insulin) 30 units subcut DAILY metformin 1 tab PO BID multivitamin 1 tab PO DAILY pen needle, diabetic qid sertraline 1.5 tabs PO DAILY simvastatin 1 tab PO DAILY HPI Comments Details: 49 YO male who is seen in f/u for diabetes. He was seen several days ago as an initial consult with a blood sugar of 549 and was positive for ketones. He was sent to the ER for treatment which was his 2nd ER visit over the past several weeks. He was approved for a freestyle Vera 3 which he will be started on today. He was hospitalized in [place] with a glucose of 600 1 year ago and was started on basal bolus insulin. hemoglobin A1c 07/03/2024 9.9%, 03/17/2024 7.4%. Prior to that time his A1c was in the 10% range. MUNIR negative 24His diabetes care is complicated by schizoaffective disorder, PTSD and learning disability. He has a caregiver and mother is involved in his care. He does go to a day program which was given orders for insulin administration at lunch several days ago. Initially diagnosed with T2DM approximately 2013 Was initially started on treatment with metformin and Jardiance Current regimen Lantus 30 units (recently increased last week from 15 units, at last visit Mother had mistakenly given dose as 25 units) Humalog (Novolog, now changing due to insurance formulary change) tid with meals 80-150 4 units 151-200 6 units Mother doesn't have glucometer today remembers all readings 200+ day program 12n 379 334 Reports low sugars none Family history of T2DM on father's side Has eyes checked yearly, last eye exam 11/2023, retinopathy. Denies neuropathy Had [place] recent hosp stay Has HLD, on statin Denies chest pain, dyspnea or symptoms of claudication. [facility] Medical History Insulin dependent type 2 diabetes mellitus Gout Hyperlipidemia Intellectual disability Bipolar 1 disorder Saddle pulmonary embolus Diabetes insipidus High cholesterol Anxiety PTSD (post-traumatic stress disorder) Schizo affective schizophrenia Surgical History Hx of tooth extraction Hx of excision of mass Social History Household Members: Other Housing: Other Housing Other:: longterm/Assisted living Alcohol intake: never Patient Tobacco Use Status: Never used Tobacco Advance Directives Date on File: 04/20/21 service: No Current occupational status: disabled Physical Exam Vital Signs: Last Vital Signs Pulse 101 H 07/10/24 13:59 BP 149/99 H 07/10/24 13:59 Oxygen Delivery Method Room Air 07/10/24 13:59 Const Other: Absence of Cushingoid features. Absence of acromegalic features. Neck exam revea ls nl size thyroid about 15 gms. No thyroid nodules palpable. No carotid bruits present. Lungs CTA. Heart S1 S2, Reg R/R. No M/R G. Skin exam reveals absence of vitiligo or acanthosis nigricans. No edema Visual exam of foot performed. No ulcerations or open lesions. No inter digit maceration or fissuring. No onychomycosis, no callouses. Sensation intact to monofilament exam. Vibratory sensation is normal with 128 Hz tuning fork. Results Reviewed Results Reviewed: Laboratory Last Values Glucose (Clinic) 342 mg/dL (60-115) H 07/10/24 14:07 Assessment & Plan Assessment & Plan (1) Diabetes mellitus: Code(s): E11.9 - Type 2 diabetes mellitus without complications Category: Medical Plan: 49-year-old type 2 diabetic with recent CJ, retinopathy whose care is complicated by schizoaffective disorder, PTSD and learning disability. New dosing: Lantus 36 units Novolog tid with meals (orders sent to [facility] for lunch administration) 80-100 4 units 101-150 6 units 151-200 10 units 201-250 12 units 251-300 14 units 301-350 16 units over 350 18 units Over 350 dip urine for ketones: if positive go to ER HIs mother will bring him in for labs to determine type of diabetes. Patient will follow up with me for diabetes mellitus. The patient's mother had an opportunity to ask questions regarding treatment plan. The patient expressed understanding and agreement with the above treatment plan. The patient's mother is aware they should contact our office by phone for worsening glucose readings or for any low blood sugars which may warrant a change in diabetes medication. Compliance is encouraged with medications and any followup testing/consults which may have been ordered. (2) Diabetes insipidus: Code(s): E23.2 - Diabetes insipidus Category: Medical Plan: Patient has a history of diabetes insipidus was previously followed by Dr. Graves clinical phlebotomist in [place] but has not been seen in many years. Recent sodium in chart was within normal limits. Mother reports that he drinks an adequate amount of fluids. She does not remember the exact prescribed amount. We will obtain medical records and have patient follow up with Dr. Blanchard. Labs ordered. Plan The patient was counseled to achieve a target A1C of 7% (154 avg). Fasting blood sugars should be 90-130 in the morning and less than 180 two hours after meals. Reviewed the relationship between poor diabetic control and the development of complications. Take 15 carb carbohydrate grams to treat a low sugar (3-4 glucose tablets, half a glass of juice or 15 carbohydrate grams of soft candy such as gummie snacks). Recheck your sugar in 15 minutes and re-treat again with 15 carbohydrate grams if low or still with symptoms. Do not drive a car or operate machinery if you do not know what your blood sugar is, if it is low or in excess of 300. Orders: Orders Osmolality Urine 07/10/24 E23.2 - Diabetes insipidus Basic Metabolic Panel 07/10/24 E23.2 - Diabetes insipidus Osmolality, Serum 07/10/24 E23.2 - Diabetes insipidus Sodium Urine Random Today E23.2 - Diabetes insipidus Medications: New Basaglar KwikPen U-100 Insulin (insulin glargine) 36 units (0.36 mL) subcut QPM 90 days 33 mL 4RF NS Discontinued blood-glucose sensor (FreeStyle Vera 3 Plus Sensor device) Discontinued Reason: Duplicate As directed eery 15 days 2 ea 11RF E11.9 - Type 2 diabetes mellitus without complications, Z79.4 - longterm (current) use of insulin blood-glucose meter,continuous (FreeStyle Vera 3 [place]) Discontinued Reason: Duplicate As directed for use with freestyle vera sensors 1 ea 0RF E11.9 - Type 2 diabetes mellitus without complications, Z79.4 - predatory animal exterminator (current) use of insulin Coding Level of Care Code Est Pt Level 4 (98481) Complex EM visit Add On G2211 Diagnoses Diabetes mellitus E11.9 Diabetes insipidus E23.2 Time Spent (min) 30 Comment Time spent reviewing labs/provider notes, face to face, chart doc
[2024-07-10 13:59] VITALS: BP 149/99; PULSE 101
[2024-07-10 14:10] LABS: Glucose, Whole Blood 342 mg/dL (60-115)
--- OUTSIDE RECORDS SUMMARY | 2024-07-10 16:21 | XMS_ITS ---
Author Organization [facility] Address [address] [place] [address] Care Team Providers Care Rn Emergency Room Name Role Phone Trevor Conley MD Primary Care Provider Naveen Flores Jr REASON FOR VISIT eliquis note Encounters Encounter Location Date Provider Diagnosis [facility] [address] [place] [address] 05/19/2024 Naveen Yang Jr Plan Of Treatment No Information Progress Notes * FERMIN PEREZ ADOB:1975 (48 yo M)Acc No.[id number]:05/19/2024 Patient:?FERMIN PEREZ :1975???Age:48 Y???Sex:Male Address:[address] [place] [address] * true * Date:? Generated for Luz burris/Danny/eTransmitting on:?07/10/2024 04:21 PM EDT
--- OUTSIDE RECORDS SUMMARY | 2024-07-10 16:22 | XMS_ITS ---
Author Organization [facility] Address [address] [place] [address] Care Team Providers Care Dinkey Locomotive Operator Name Role Phone Trevor Conley MD Primary Care Provider Naveen Flores Jr REASON FOR VISIT screening Encounters Encounter Location Date Provider Diagnosis [facility] [address] [place] [phone] 05/23/2024 Naveen Yang Jr Colon cancer screening Z12.11 Assessments Encounter Date Diagnosis (ICD Code) Assessment Notes Treatment Notes Treatment Clinical Notes Section Notes 05/23/2024 Colon cancer screening (ICD-10 - Z12.11) Plan Of Treatment No Information Progress Notes * FERMIN PEREZ ADOB:1975 (49 yo M)Acc No.[id number]:05/23/2024 COLON WITH MAC Patient:?SAM PEREZIN Dimitrios Provider:?Naveen Yang MD :1975???Age:48 Y???Sex:Male Prosper e:05/23/2024 Address:[address] [place], [place] [phone] Pcp:Trevor Conley MD Subjective: * Chief Complaints: * ???1. Screening. * Medical History:? Objective: * Vitals:? Assessment: * Assessment: 1.?Colon cancer screening - Z12.11 (Primary)??? Plan: * Treatment: * Procedure Codes:?41164 DIAGN OSTIC COLONOSCOPY, 0528F RCMND FLW-UP 10 YRS DOCD * * The named appointment provid er may or may not be the originator of this progress note, and it is not deemed complete until electronically signed by the appointment provider. Sign off status: Pending * Provider:?Naveen Yang MD Date:?0 05/23/2024 Generated for Luz burris/Danny/Nadine on:?07/10/2024 04:22 PM EDT
--- OUTSIDE RECORDS SUMMARY | 2024-07-10 16:22 | XMS_ITS | Clinical Summary ---
Author Organization [employer] Address [address] [place] [address] 7t [place] [address] Care Team Providers Care Laundry Room Attendant Name Role Phone Unavailable Primary Care Provider Unavailabl e Allergies No known active allergies Medications clindamycin (Cleocin) 150 MG capsule 2 caps one hour prior to dental procedure 4 capsule 4 Active Encounters Date Type Department Care Team Description 07/02/2024 Telephone [facility] [address] [place] [address] Sudhir Weinstein DMD from Last 3 Months [...] Most Recently Relevant to Health Maintenance Insurance [facility] MEDICA[facility] STAND ADULT Member Subscriber Plan / Payer (Ef fective 2022-Present) Name:TroyMoisesin Relation to Subscriber:Self Name:SimmonsMoisesin Payer ID:Not on file Group ID:Not on file Type:Not on file Address: [place] [id number]
--- OUTSIDE RECORDS SUMMARY | 2024-07-10 16:22 | XMS_ITS | Patient Health Record ---
Author Organization [facility] Address [address] [place] [address] Care Team Providers Care Oracle Sql Developer Name Role Phone Trevor Conley MD Primary Care Provider Marcus Bonds Unavailable [phone] Allergies Allergen (clinical drug ingredient) Drug/Non Drug [...] Problem Acquired hammer toe of right foot (48486787890641 05) Other hammer toe(s) (acquired), right foot (M20.41) Active confirmed Response to treatment,I mprovement Problem Acquired hammer toe of left foot (12507829244398 03) Other hammer toe(s) (acquired), left foot (M20.42) Active confirmed Response to treatment,I mprovement Problem Type 2 diabetes mellitus without complication (630886439) Type 2 diabetes mellitus without complication (E11.9) Active confirmed Vital Signs Blood pressure diastolic 70 mm Hg 05/13/2024 Height 5ft 6in in 05/13/2024 Blood pressure systolic 118 mm Hg 05/13/2024 Weight 166 lbs 05/13/2024 BMI 26.79 kg/m2 05/13/2024 Procedures Procedure Date Ordered Date Performed Result Body Sit e 13708-VZLNYWK NAIL, 6 OR MORE 09/25/2023 N/A 32771-AMGZXVS NAIL, 6 OR MORE 05/13/2024 N/A Encounters Encounter Location Date Provider Diagnosis [facility] [address] [place] [address] 09/25/2023 Marcusblaze Tracey Pain in right toe(s) M79.674 ; Tinea unguium B35.1 ; Pain in left toe(s) M79.675 ; Type 2 diabetes mellitus without complication E11.9 ; Xerosis of skin L85.3 ; Other hammer toe(s) (acquired), left foot M20.42 and Other hammer toe(s) (acquired), right foot M20.[address] [address] 05/13/2024 Marcus Tracey Pain in right toe(s) M79.674 ; Tinea unguium B35.1 ; Pain in left toe(s) M79.675 ; Type 2 diabetes mellitus without complication E11.9 ; Other hammer toe(s) (acquired), right foot M20.41 and Other hammer toe(s) (acquired), left foot M20.[address] [address] 12/25/2023 Marcus Tracey [address] [address] 02/18/2024 Marcus Tracey Assessments Encounter Date Diagnosis [...] Treatment Pending Test Test Name Order Date 32672-FRWKIEK NAIL, 6 OR MORE 02/03/2020 84687-BDZKOXT NAIL, 6 OR MORE 05/07/2020 73656-IPXRXQO NAIL, 6 OR MORE 08/10/2020 74377-XFEIFPV NAIL, 6 OR MORE 11/26/2020 79575-TYJXNYY NAIL, 6 OR MORE 03/04/2021 49574-HLWEEFV NAIL, 6 OR MORE 06/07/2021 49939-JETAYJT NAIL, 6 OR MORE 09/06/2021 37547-VFDFMRL NAIL, 6 OR MORE 01/20/2022 17430-XQRFNYH NAIL, 6 OR MORE 06/13/2022 28787-RPJRCDU NAIL, 6 OR MORE 09/19/2022 61484-MXTECIQ NAIL, 6 OR MORE 12/26/2022 00114-RTPIIHR NAIL, 6 OR MORE 03/27/2023 15414-LBURICP NAIL, 6 OR MORE 06/26/2023 41877-MOYTGIF NAIL, 6 OR MORE 09/25/2023 64302-QGISBLP NAIL, 6 OR MORE 05/13/2024 Next Appt Details Provider Name:Marcus Tracey , 08/19/2024 04:00:00 PM, [address] [facility], [place], [address], Insurance Providers Payer Name Payer Address Payer Phone Subscriber Number Group Number Insured Name Patient Relationship to Insured Coverage Start Date Coverage End Date Medicare National [employer]t S[employer] [address] [place] [address] [id number] Troy Gautam Self - patient is the insured Medical (General) History Medical History History ICD Code Anxiety Depression Gout Psychiatric disorder Chicken pox type II diabetes ptsd CAD (Cholesterol) Mild Retardation Surgical History Surgery Date(Month/Year) Hospitalization History Reason Date(Month/Year) [facility] ER sodium too high 12/23
--- OUTSIDE RECORDS SUMMARY | 2024-07-10 16:22 | XMS_ITS ---
Author Organization [facility] Address [address] [place] [address] Care Team Providers Care Finish Mill Operator Name Role Phone Trevor Conley MD Primary Care Provider Unavaila Marcus Almanza Unavailable [phone] Allergies Allergen (clinical drug ingredient) Drug/Non Drug [...] Ordered Date Performed Result Body Sit e 25338-GNZWCNI NAIL, 6 OR MORE 05/13/2024 N/A Encounters Encounter Location Date Provider Diagnosis [facility] [address] [address] 05/13/2024 Marcus Blackunier Pain in right toe(s) [...] Treatment Pending Test Test Name Order Date [id number] NAIL, 6 OR MORE 05/13/2024 Next Appt Details Follow Up: prn, Reason: Provider Name:Marcus Tracey , 08/19/2024 04:00:00 PM, [address] [place] [address], [phone], Procedure Notes * Category Sub-Category Detail [...] use of a nail nipper and/or dremel-type regrinder, to a more viable healthy nail plate [...] * Moises SIMMONSinDOB:1975 ( 48 yo M)Acc No.[id number]:05/13/2024 Progress Note Patient:?SIMMONS Gautam Provider:?Marcus Tracey DPM :1975???Age:48 Y???Sex:Male Prosper e:05/13/2024 Address:[address] , [address] [facility], [place], [place] Pcp:Trevor Conley MD Subjective: * Chief Complaints: [...] segura Surgical History * Hospitalization/Major Diagno stic Procedure:?[facility] ER sodium too high 01/15/2020 [...] use of a nail nipper and/or dremel-type regrinder, to a more viable healthy nail plate [...] to maintain effectiveness in symptomatic relief - 02751.? * Procedure Codes:?46081 DEBRI DE NAIL, 6 OR [id number] Pall serv during david * Preventive Medicine:? [...] Tracey DPM Date:?2024 Generated for Luz burris/Danny/Nadine on:?07/10/2024 04:22 PM EDT History and Physical Notes * [...]
--- OUTSIDE RECORDS SUMMARY | 2024-07-10 16:22 | XMS_ITS ---
Author Organization [facility] Address [address] [place] [address] Care Team Providers Care Gymnastics Coach Name Role Phone Trevor Conley MD Primary Care Provider UnavailMarcus Huber [phone] REASON FOR VISIT Reschedule Encounters Encounter Location Date Provider Diagnosis [address] [address] 02/18/2024 Marcus Tracey Plan Of Treatment Next Appt Details Provider Name:Marcus Tracey , 08/19/2024 04:00:00 PM, [address] [place] [address], [address], Progress Notes * Moises SIMMONSinDOB:1975 ( 48 yo M)Acc No.[id number]:02/18/2024 Patient:?Gautam Simmons :1975???Age:48 Y???Sex:Male Address:[address] , [address] [place], [address] * true * Date:? Generated for Printi ng/Faxing/eTransmitting on:?07/10/2024 04:22 PM EDT
--- OUTSIDE RECORDS SUMMARY | 2024-07-10 16:23 | XMS_ITS ---
Author Organization [facility] Address [address] [place] [address] Care Team Providers Care Vessel Captain Name Role Phone Trevor Conley MD Primary Care Provider Marcus Bonds Unavailable [phone] Encounters Encounter Location Date Provider Diagnosis [facility] [address] [place] [address] 02/19/2024 Marcus Tracey Plan Of Treatment Next Appt Details Provider Name:Marcus Tracey , 08/19/2024 04:00:00 PM, [address] [place] [address], [phone], Progress Notes * ANA MoisesKarenOB:1975 ( 49 yo M)Acc No.[id number]:02/19/2024 Progress Note Patient:?Gautam SIMMONS Provider:?Marcus Tracey DPM :1975???Age:48 Y???Sex:Male Prosper e:02/19/2024 Address:[address] , [address] [place], [place] [phone] Pcp:Trevor Conley MD Subjective: * Chief Complaints: [...] Tracey DPM Date:?2023 Generated for Luz burris/Danny/Nadine on:?07/10/2024 04:22 PM EDT
--- OUTSIDE RECORDS SUMMARY | 2024-07-10 16:23 | XMS_ITS ---
Author Organization [facility] Address [address] [place] [address] Care Team Providers Care Mapping Analyst Name Role Phone Trevor Conley MD Primary Care Provider Naveen Flores Jr [phone] REASON FOR VISIT nurse order Encounters Encounter Location Date Provider Diagnosis [facility] [address] [place] [address] 05/14/2024 Naveen Yang Jr Plan Of Treatment No Information Progress Notes * FERMIN PEREZ ADOB:1975 (48 yo M)Acc No.[id number]:05/14/2024 Patient:?FERMIN PEREZ :1975???Age:48 Y???Sex:Male Address:[address] [place] [address] * true * Date:? Generated for Luz burris/Danny/eTransmitting on:?07/10/2024 04:22 PM EDT
--- OUTSIDE RECORDS SUMMARY | 2024-07-10 16:23 | XMS_ITS | Patient Health Record ---
Author Organization [facility] Address [address] [place] [address] Care Team Providers Care Health Assistant Name Role Phone Trevor Conley MD Primary Care Provider Naveen Flores Jr Unavailable [phone] Allergies Allergen (clinical drug ingredient) Drug/Non Drug Allergy documented on EMR Reaction Allergy Type Onset Date Status Penicillin Unknown Drug Allergy Active Results Component Value Reference Range Notes Glucose, Whole Blood Reviewed date:05/23/2024 09:24:07 PM Interpretation: Performing Lab:[facility], [address] [place] [phone] Notes/Report: Glucose, Whole Blood 233 60-115 mg/dL METER # : [id number] Reason For Referral No Information Medications Medication [...] Problem Status W/U Status Risk Notes Problem 112977673 Colon cancer screening (Z12.11) Active confirmed Problem 923133160 USP (curre nt) use of anticoagulants (Z79.01) Active confirmed Problem 459737194 Long-term curren t use of high risk medication other than anticoagulant (Z79.899) Active confirmed Vital Signs Blood pressure diastolic 00 mm Hg 05/01/2024 Height 5 ft 7 in in 05/01/2024 Blood pressure systolic 00 mm Hg 05/01/2024 Weight 171 lbs 05/01/2024 BMI 26.78 kg/m2 05/01/2024 Encounters Encounter Location Date Provider Diagnosis [facility] Outpatient [address] [place], [place] [phone] 05/23/2024 Naveen Yang Jr Colon cancer screening Z12.11 [facility] [address] [place] [address] 05/01/2024 Naveen Yang Jr Colon cancer screening Z12.11 ; Long-term current use of high risk medication other than anticoagulant Z79.899 and USP (current) use of anticoagulants Z79.01 [facility] [address] [place] [address] 05/14/2024 Naveen Yang Jr [facility] [address] [place] [address] 05/19/2024 Naveen Yang Jr Assessments Encounter Date [...] insulin the night before the prep. 05/01/2024 product grader (current) use of anticoagulants (ICD-10 - Z79.01) [...] [place] [address] [address] [id number] FERMIN PEREZ Self - patient is the insured MEDICAID OF [employer] [address] [place] [address] [phone] [id number] FERMIN PEREZ Self - patient is the insured Medical (General) History Medical History History ICD Code Diabetes mellitus type 2 Pulmonary embolus Schizoaffective disorder bipolar disorder Intellectual disability PTSD Hyperlipidemia Surgical History Surgery Date(Month/Year) Excision of right axillary lesion
--- OUTSIDE RECORDS SUMMARY | 2024-07-10 16:23 | XMS_ITS | Encounter Summary ---
Author Organization [facility] [employer] Address [address] [facility] 7t [place] [address] Care Team Providers Care Electronic Scanner Operator Name Role Phone Unavailable Primary Care Provider Unavailabl e Encounter Details Date Type Department Care Team (Late st Contact Info) Description 07/02/2024 Telephone C ADULT D[facility]AL [address] [place] [address] Sudhir Weinstein, DMD [address] [place] [address] Social History Tobacco Use Types Packs/Day Years [...] explained that now patient lives with his animal care worker and she will reach patients mother to call us back to schedule this appointment. documented in this encounter Plan of Treatment Not on file documented as of this encounter Visit Diagnoses Not on filedocumented in this encounter
--- OUTSIDE RECORDS SUMMARY | 2024-07-10 16:23 | XMS_ITS | Encounter Summary ---
Author Organization [facility] [employer] Address [address] [facility] 7t [place] [address] Care Team Providers Care Home Care Assistant Name Role Phone Unavailable Primary Care Provider [...]
== END 2024-07-10 15:07 | disposition home or self-care (01) ==
LOC: HO.ENCR 13:45
PROVIDERS: PCP Internal Medicine; Visit Provider Nurse Practitioner Adult Health
DX: E11.9 Type 2 diabetes mellitus without complications (principal); E23.2 Diabetes insipidus
CPT/HCPCS: 99214; G2211

== ENCOUNTER → 2024-07-10 13:44 | Outpatient (BNVA) | payer MEDICARE, MEDICAID, SELFPAY | PROVIDERS: PCP Internal Medicine; Visit Provider Nurse Practitioner Adult Health | DX: E11.9 Type 2 diabetes mellitus without complications (principal); E23.2 Diabetes insipidus; Z79.4 Long term (current) use of insulin; Z79.84 Long term (current) use of oral hypoglycemic drugs | CPT/HCPCS: 82947; 99212 ==

== ENCOUNTER 2024-07-11 09:57 | Outpatient (AMB) | payer MEDICARE, MEDICAID, SELFPAY ==
[2024-07-11 10:17] VITALS: BP 118/80; PULSE 100; RESP 14; TEMP 36.5; O2SAT 98; BMI 25.1
--- NOTE | 2024-07-11 10:17 | MHC.PC.OV ---
Vital Signs 07/11/24 10:17 Height 5 ft 7 in Weight 160 lb BMI 25.1 BP 118/80 Respiration 14 Pulse 100 Pulse Source Pulse Oximeter Temp 97.7 F Temp Source Temporal Artery Scan Pulse Oximetry (%) 98 Oxygen Delivery Method Room Air Intake Visit Reasons: routine Dishwasher Preparer Required: No Accompanied by: Mother Allergies penicillin G Allergy (Unknown, Verified 07/11/24 10:17) Unknown Penicillins [PENICILLINS] Allergy (Unknown, Verified 07/11/24 10:17) Unknown Tobacco use date assessed: 07/11/24 Dental Screening Dental Screen Date: 07/11/24 Did you have a dental visit in the last 12 months?: Yes Did you have a dental problem in the last 6 months where you did not have access to dental care?: No HPI HPI Comments History of Present Illness Details 49 year old male with a past medical history of schizoaffective disorder, PTSD, learning disability, diabetes presenting for follow up. Accompanied by mom Diabetes-following with endocrinology Was initially started on treatment with metformin and Jardiance Lantus 36 units Novolog tid with meals (orders sent to [facility] for lunch administration) 80-100 4 units 101-150 6 units 151-200 10 units 201-250 12 units 251-300 14 units 301-350 16 units over 350 18 units Over 350 dip urine for ketones: if positive go to ER Mood disorder: Continue home mood stabilizers History of PE: On Eliquis Mixed hyperlipidemia: On statin ROS CONSTITUTIONAL: Denies weight loss, fever and chills. HEENT: Denies changes in vision and hearing. RESPIRATORY: Denies SOB and cough. CV: Denies palpitations and CP GI: Denies abdominal pain, nausea, vomiting and diarrhea. : Denies dysuria and urinary frequency. MSK: Denies new myalgia and joint pain. SKIN: Denies rash and pruritus. NEUROLOGICAL: Denies headache PSYCHIATRIC: Denies recent changes in mood. PHYSICAL EXAM: GENERAL: Alert and oriented x 3. NAD EYES: EOMI. Anicteric. HENT: Moist mucous membranes. No scleral icterus. No cervical lymphadenopathy. LUNGS: Clear to auscultation bilaterally. CARDIOVASCULAR: Regular rate and rhythm. No murmur. No JVD. ABDOMEN: Soft, non-tender +bs EXTREMITIES: No edema. Non-tender. SKIN: No rashes or lesions. Warm. NEUROLOGIC: No focal neurological deficits. CN II-XII grossly intact PSYCHIATRIC: Cooperative. Appropriate mood and affect [facility] Medical History Insulin dependent type 2 diabetes mellitus Gout Hyperlipidemia Intellectual disability Bipolar 1 disorder Saddle pulmonary embolus Diabetes insipidus High cholesterol Anxiety PTSD (post-traumatic stress disorder) Schizo affective schizophrenia Surgical History Hx of tooth extraction Hx of excision of mass Family History Mother Fibromyalgia Post traumatic stress disorder (PTSD) Anxiety Osteopenia High cholesterol Anemia Cerebellar ataxia Social History Household Members: Other Housing: Other Housing Other:: long-term/Assisted living Alcohol intake: never Patient Tobacco Use Status: Never used Tobacco Advance Directives Date on File: 04/20/21 service: No Current occupational status: disabled Cognitive needs: Yes Hearing needs: No Vision needs: No Questionnaire PHQ-9 Over the last 2 weeks, how often have you been bothered by any of the following problems? 1. Little interest or pleasure in doing things: not at all 2. Feeling down, depressed, or hopeless: not at all 3. Trouble falling or staying asleep, or sleeping too much: not at all 4. Feeling tired or having little energy: not at all 5. Poor appetite or overeating: not at all 6. Feeling bad about yourself - or that you are a failure or have let yourself or your family down: not at all 7. Trouble concentrating on things, such as reading the newspaper or watching television: not at all 8. Moving or speaking so slowly that other people could have noticed. Or the opposite - being so fidgety or restless that you have been moving around a lot more than usual: not at all 9. Thoughts that you would be better off or of hurting yourself in some way: not at all Total score: 0 Depression Screening Interpretation: Negative Depression Screening Done: Yes 56479 - PHQ-9 Billing: Yes Source: Developed by Drs. Zbigniew Walton, Eddie Samaniego and colleagues, with an educational bev from [employer]. Thrive Questionnaire Date Thrive assessed: 07/11/24 I am a: Patient What is your living situation today?: I have a steady place to live Within the past 12 months, did the food you bought not last and you didn't have the money to get more?: Never true Within the past 12 months, did you worry whether your food would run out before you got money to buy more?: Never true Do you have trouble paying for medicines?: No Do you have trouble getting transportation to medical appointments?: No Do you have trouble paying your heating and electricity bill?: No Do you have trouble taking care of your child, family member or friend?: No Do you have trouble with day-to-day activities such as bathing, preparing meals, shopping, managing finances, etc.?: No Are you currently unemployed and looking for a job?: No Are you interested in more education?: No Please select the resources that you would like help with: None THRIVE Score: 0 AUDIT C Alcohol Use Questionnaire (AUDIT-C) 1. How often do you have a drink containing alcohol?: Never 3. How often do you have six or more drinks on one occasion?: Never Total Score: 0 MUNIR-7 AMB Questionnaire MUNIR-7 Date MUNIR - 7 assessed: 07/11/24 Feeling nervous, anxious, or on edge: 0 = Not at all Not being able to stop or control worryin = Not at all Worrying too much about different things: 0 = Not at all Trouble relaxin = Not at all Being so restless that it is hard to sit still: 0 = Not at all Becoming easily annoyed or irritable: 0 = Not at all Feeling afraid as if something awful might happen: 0 = Not at all Total MUNIR-7 score (0-4 normal; 5-9 mild; 10-14 moderate; 15-21 severe): 0 Source: Developed by Drs. Zbigniew Walton, Eddie Samaniego and colleagues, with an educational bev from [employer]. Physical exam (Primary Care) Vital Signs: Last Vital Signs Temp 97.7 F 07/11/24 10:17 Pulse 100 07/11/24 10:17 Resp 14 07/11/24 10:17 BP 118/80 07/11/24 10:17 Pulse Ox 98 07/11/24 10:17 Oxygen Delivery Method Room Air 07/11/24 10:17 BMI result Body Mass Index 25.1 Tobacco/Smoking Status: Tobacco use Status Tobacco use date assessed 07/11/24 07/11/24 10:31 Patient Tobacco Use Status Never used Tobacco 07/11/24 10:31 PHQ-9: PHQ-9 Score PHQ-9: Total score 0 07/11/24 10:51 Depression Screening Interpretation: Negative Thrive Assessment: Date of Thrive Assessment Date Thrive assessed 07/11/24 07/11/24 10:31 Coding Level of Care Code New Pt Level 4 (68841) Complex EM visit Add On G2211 Diagnoses Insulin dependent type 2 diabetes mellitus E11.9; Z79.4 Schizo affective schizophrenia F25.9 Additional Codes PHQ-9 - 63290 - PHQ-9 Billing: Yes ([id number]) Assessment & Plan Assessment & Plan (1) Insulin dependent type 2 diabetes mellitus: Code(s): E11.9 - Type 2 diabetes mellitus without complications; Z79.4 - termite renewal inspector (current) use of insulin Category: Medical (2) Schizo affective schizophrenia: Code(s): F25.9 - Schizoaffective disorder, unspecified Category: Medical Plan 49 y/o establish care. past medical, surgical, social, family history reivewed BH: Stable. Follows with psychiatry Diabetes: Improving control. continue endocrine follow up
--- OUTSIDE RECORDS SUMMARY | 2024-07-11 11:38 | XMS_ITS ---
Author Organization [facility] Address [address] [place] [address] Care Team Providers Care Rug Sample Beveler Name Role Phone Trevor Conley MD Primary Care Provider Unavaila Marcus Almanza Unavailable [phone] Allergies Allergen (clinical drug ingredient) Drug/Non Drug [...] Ordered Date Performed Result Body Sit e 58786-JSZQEDV NAIL, 6 OR MORE 05/13/2024 N/A Encounters Encounter Location Date Provider Diagnosis [facility] [address] [address] 05/13/2024 Marcus Blackunier Pain in right toe(s) [...] Treatment Pending Test Test Name Order Date 21431-[id number] NAIL, 6 OR MORE 05/13/2024 Next Appt Details Follow Up: prn, Reason: Provider Name:Marcus Tracey , 08/19/2024 04:00:00 PM, [address] [place] [address], [phone], Procedure Notes * Category Sub-Category Detail [...] use of a nail nipper and/or dremel-type outer diameter grinder, to a more viable healthy nail [...] * Moises SIMMONSinDOB:1975 ( 48 yo M)Acc No.[id number]:05/13/2024 Progress Note Patient:?SIMMONS Gautam Provider:?Marcus Tracey DPM :1975???Age:48 Y???Sex:Male Prosper e:05/13/2024 Address:[address] , [address] [facility], [place], [phone] Pcp:Trevor Conley MD Subjective: * Chief Complaints: [...] segura Surgical History * Hospitalization/Major Diagno stic Procedure:?[facility] ER sodium too high 01/15/2020 * Family [...] use of a nail nipper and/or dremel-type outer diameter grinder, to a more viable healthy nail [...] to maintain effectiveness in symptomatic relief - [address].? * Procedure Codes:?46874 DEBRI DE NAIL, 6 OR [id number] Pall serv during david * Preventive Medicine:? [...] Tracey DPM Date:?2024 Generated for Luz burris/Danny/Nadine on:?07/11/2024 11:38 AM EDT History and Physical Notes * [...]
--- OUTSIDE RECORDS SUMMARY | 2024-07-11 11:38 | XMS_ITS | Patient Health Record ---
Author Organization [facility] Address [address] [place] [address] Care Team Providers Care Radiologic Technology Program Director Name Role Phone Trevor Conley MD Primary Care Provider Marcus Bonds Unavailable [phone] Allergies Allergen (clinical drug ingredient) Drug/Non Drug [...] Problem Acquired hammer toe of right foot (22194602719684 05) Other hammer toe(s) (acquired), right foot (M20.41) Active confirmed Response to treatment,I mprovement Problem Acquired hammer toe of left foot (43984668225400 03) Other hammer toe(s) (acquired), left foot (M20.42) Active confirmed Response to treatment,I mprovement Problem Type 2 diabetes mellitus without complication (208595912) Type 2 diabetes mellitus without complication (E11.9) Active confirmed Vital Signs Blood pressure diastolic 70 mm Hg 05/13/2024 Height 5ft 6in in 05/13/2024 Blood pressure systolic 118 mm Hg 05/13/2024 Weight 166 lbs 05/13/2024 BMI 26.79 kg/m2 05/13/2024 Procedures Procedure Date Ordered Date Performed Result Body Sit e 53702-GSQCKWM NAIL, 6 OR MORE 09/25/2023 N/A 77075-BPXLMNW NAIL, 6 OR MORE 05/13/2024 N/A Encounters Encounter Location Date Provider Diagnosis [facility] [address] [place] [address] 09/25/2023 Marcusblaze Tracey Pain in right toe(s) M79.674 ; Tinea unguium B35.1 ; Pain in left toe(s) M79.675 ; Type 2 diabetes mellitus without complication E11.9 ; Xerosis of skin L85.3 ; Other hammer toe(s) (acquired), left foot M20.42 and Other hammer toe(s) (acquired), right foot M20.[address] [address] 05/13/2024 Marcus Tracey Pain in right toe(s) M79.674 ; Tinea unguium B35.1 ; Pain in left toe(s) M79.675 ; Type 2 diabetes mellitus without complication E11.9 ; Other hammer toe(s) (acquired), right foot M20.41 and Other hammer toe(s) (acquired), left foot M20.[address] [address] 12/25/2023 Marcus Tracey [address] [address] 02/18/2024 Marcus Tracey Assessments Encounter Date Diagnosis [...] Treatment Pending Test Test Name Order Date 50452-UJIABYK NAIL, 6 OR MORE 02/03/2020 11046-JVEKEWT NAIL, 6 OR MORE 05/07/2020 14240-MDWGEEZ NAIL, 6 OR MORE 08/10/2020 00873-DGXXJTR NAIL, 6 OR MORE 11/26/2020 14890-FPCBUEV NAIL, 6 OR MORE 03/04/2021 32524-CJJEAQV NAIL, 6 OR MORE 06/07/2021 26717-XFFLNZU NAIL, 6 OR MORE 09/06/2021 96792-MNRRQDL NAIL, 6 OR MORE 01/20/2022 30954-JZNKYST NAIL, 6 OR MORE 06/13/2022 71718-IBGTQXF NAIL, 6 OR MORE 09/19/2022 75613-QFINTDR NAIL, 6 OR MORE 12/26/2022 90004-JWXCMZM NAIL, 6 OR MORE 03/27/2023 79055-GZBOWBQ NAIL, 6 OR MORE 06/26/2023 02605-OYOEGUK NAIL, 6 OR MORE 09/25/2023 71659-VEARQQX NAIL, 6 OR MORE 05/13/2024 Next Appt Details Provider Name:Marcus Tracey , 08/19/2024 04:00:00 PM, [address] [facility], [place], [address], Insurance Providers Payer Name Payer Address Payer Phone Subscriber Number Group Number Insured Name Patient Relationship to Insured Coverage Start Date Coverage End Date Medicare National [employer]t [employer] [address] [place] [address] [id number] Troy Gautam Self - patient is the insured Medical (General) History Medical History History ICD Code Anxiety Depression Gout Psychiatric disorder Chicken pox type II diabetes ptsd CAD (Cholesterol) Mild Retardation Surgical History Surgery Date(Month/Year) Hospitalization History Reason Date(Month/Year) [facility] ER sodium too high 12/23
--- OUTSIDE RECORDS SUMMARY | 2024-07-11 11:38 | XMS_ITS ---
Author Organization [facility] Address [address] [place] [address] Care Team Providers Care Metal Tank Erector Name Role Phone Trevor Conley MD Primary Care Provider Naveen Flores Jr REASON FOR VISIT eliquis note Encounters Encounter Location Date Provider Diagnosis [facility] [address] [place] [address] 05/19/2024 Naveen Yang Jr Plan Of Treatment No Information Progress Notes * FERMIN PEREZ ADOB:1975 (48 yo M)Acc No.[id number]:05/19/2024 Patient:?FERMIN PEREZ :1975???Age:48 Y???Sex:Male Address:[address] [place] [address] * true * Date:? Generated for Tammyi fatuma/Danny/eTransmitting on:?07/11/2024 11:37 AM EDT
--- OUTSIDE RECORDS SUMMARY | 2024-07-11 11:38 | XMS_ITS ---
Author Organization [facility] Address [address] [place] [address] Care Team Providers Care Policy Director Name Role Phone Trevor Conley MD Primary Care Provider UnavailMarcus Huber [phone] REASON FOR VISIT Reschedule Encounters Encounter Location Date Provider Diagnosis [address] [address] 02/18/2024 Marcus Tracey Plan Of Treatment Next Appt Details Provider Name:Marcus Tracey , 08/19/2024 04:00:00 PM, [address] [place] [address], [phone], Progress Notes * Moises SIMMONSinDOB:1975 ( 48 yo M)Acc No.[id number]:02/18/2024 Patient:?Gautam Simmons :1975???Age:48 Y???Sex:Male Address:[address] , [address] [place], [address] * true * Date:? Generated for Printi ng/Faxing/eTransmitting on:?07/11/2024 11:38 AM EDT
--- OUTSIDE RECORDS SUMMARY | 2024-07-11 11:38 | XMS_ITS ---
Author Organization [facility] Address [address] [place] [address] Care Team Providers Care Cloud Subject Matter Expert Name Role Phone Trevor Conley MD Primary Care Provider Marcus Bonds Unavailable [phone] Encounters Encounter Location Date Provider Diagnosis [facility] [address] [place] [address] 02/19/2024 Marcus Tracey Plan Of Treatment Next Appt Details Provider Name:Marcus Tracey , 08/19/2024 04:00:00 PM, [address] [place] [address], [phone], Progress Notes * ANA MoisesKarenOB:1975 ( 49 yo M)Acc No.[id number]:02/19/2024 Progress Note Patient:?Gautam SIMMONS Provider:?Marcus Tracey DPM :1975???Age:48 Y???Sex:Male Prosper e:02/19/2024 Address:[address] , [address] [place], [place] [phone] Pcp:Trevor Conley MD Subjective: * Chief Complaints: [...] Tracey DPM Date:?2023 Generated for Luz burris/Danny/Nadine on:?07/11/2024 11:38 AM EDT
--- OUTSIDE RECORDS SUMMARY | 2024-07-11 11:38 | XMS_ITS | Clinical Summary ---
Author Organization [employer] Address [address] [place] [address] 7t [place] [address] Care Team Providers Care Packing And Stamping Machine Operator Name Role Phone Unavailable Primary Care Provider Unavailabl e Allergies No known active allergies Medications clindamycin (Cleocin) 150 MG capsule 2 caps one hour prior to dental procedure 4 capsule 4 Active Encounters Date Type Department Care Team Description 07/02/2024 Telephone [facility] [address] [place] [address] Sudhir Weinstein DMD from Last 3 Months [...] Most Recently Relevant to Health Maintenance Insurance [facility] MEDICAID STAND ADULT Member Subscriber Plan / Payer (Ef fective 2022-Present) Name:TroyMoisesin Relation to Subscriber:Self Name:SimmonsMoisesin Payer ID:Not on file Group ID:Not on file Type:Not on file Address: [place] [phone]
--- OUTSIDE RECORDS SUMMARY | 2024-07-11 11:38 | XMS_ITS ---
Author Organization [facility] Address [address] [place] [address] Care Team Providers Care Rental Representative Name Role Phone Trevor Conley MD Primary Care Provider Naveen Flores Jr REASON FOR VISIT screening Encounters Encounter Location Date Provider Diagnosis [facility] [address] [place] [phone] 05/23/2024 Naveen Yang Jr Colon cancer screening Z12.11 Assessments Encounter Date Diagnosis (ICD Code) Assessment Notes Treatment Notes Treatment Clinical Notes Section Notes 05/23/2024 Colon cancer screening (ICD-10 - Z12.11) Plan Of Treatment No Information Progress Notes * ANA FERMIN ADOB:1975 (49 yo M)Acc No.[id number]:05/23/2024 COLON WITH MAC Patient:?SAM PEREZIN Dimitrios Provider:?Naveen Yang MD :1975???Age:48 Y???Sex:Male Prosper e:05/23/2024 Address:[address] [place], [place] [id number] Pcp:Trevor Conley MD Subjective: * Chief Complaints: * ???1. Screening. * Medical History:? Objective: * Vitals:? Assessment: * Assessment: 1.?Colon cancer screening - Z12.11 (Primary)??? Plan: * Treatment: * Procedure Codes:?64197 DIAGN OSTIC COLONOSCOPY, 0528F RCMND FLW-UP 10 YRS DOCD * * The named appointment provid er may or may not be the originator of this progress note, and it is not deemed complete until electronically signed by the appointment provider. Sign off status: Pending * Provider:?Naveen Yang MD Date:?0 05/23/2024 Generated for Luz burris/Danny/Nadine on:?07/11/2024 11:38 AM EDT
--- OUTSIDE RECORDS SUMMARY | 2024-07-11 11:39 | XMS_ITS | Patient Health Record ---
Author Organization [facility] Address [address] [place] [address] Care Team Providers Care Director Of Materials Management Name Role Phone Trevor Conley MD Primary Care Provider Naveen Flores Jr Unavailable [phone] Allergies Allergen (clinical drug ingredient) Drug/Non Drug Allergy documented on EMR Reaction Allergy Type Onset Date Status Penicillin Unknown Drug Allergy Active Results Component Value Reference Range Notes Glucose, Whole Blood Reviewed date:05/23/2024 09:24:07 PM Interpretation: Performing Lab:[facility], [address] [place] [id number] Notes/Report: Glucose, Whole Blood 233 60-115 mg/dL METER # : [id number] Reason For Referral No Information Medications Medication [...] Problem Status W/U Status Risk Notes Problem [id number] Colon cancer screening (Z12.11) Active confirmed Problem 599850292 custodial (curre nt) use of anticoagulants (Z79.01) Active confirmed Problem 311892655 Long-term curren t use of high risk medication other than anticoagulant (Z79.899) Active confirmed Vital Signs Blood pressure diastolic 00 mm Hg 05/01/2024 Height 5 ft 7 in in 05/01/2024 Blood pressure systolic 00 mm Hg 05/01/2024 Weight 171 lbs 05/01/2024 BMI 26.78 kg/m2 05/01/2024 Encounters Encounter Location Date Provider Diagnosis [facility] Out[facility] [address] [place], [place] [phone] 05/23/2024 Naveen Yang Jr Colon cancer screening Z12.11 [facility] [address] [place] [address] 05/01/2024 Naveen Yang Jr Colon cancer screening Z12.11 ; Long-term current use of high risk medication other than anticoagulant Z79.899 and custodial (current) use of anticoagulants Z79.01 [facility] [address] [place] [address] 05/14/2024 Naveen Yang Jr [facility] [address] [place] [address] 05/19/2024 Naveen Yang Jr Assessments Encounter Date [...] insulin the night before the prep. 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
--- OUTSIDE RECORDS SUMMARY | 2024-07-11 11:39 | XMS_ITS | Encounter Summary ---
Author Organization [facility] [employer] Address [address] 7t [place] [address] Care Team Providers Care Investigation Clerk Name Role Phone Unavailable Primary Care [...]
--- OUTSIDE RECORDS SUMMARY | 2024-07-11 11:39 | XMS_ITS ---
Author Organization [facility] Address [address] [place] [address] Care Team Providers Care Exotic Dancer Name Role Phone Trevor Conley MD Primary Care Provider Naveen Flores Jr REASON FOR VISIT nurse order Encounters Encounter Location Date Provider Diagnosis [facility] [address] [place] [address] 05/14/2024 Naveen Yang Jr Plan Of Treatment No Information Progress Notes * FERMIN PEREZ ADOB:1975 (48 yo M)Acc No.[id number]:05/14/2024 Patient:?FERMIN PEREZ :1975???Age:48 Y???Sex:Male Address:[address] [place] [address] * true * Date:? Generated for Luz burris/Danny/eTransmitting on:?07/11/2024 11:38 AM EDT
--- OUTSIDE RECORDS SUMMARY | 2024-07-11 11:39 | XMS_ITS | Encounter Summary ---
Author Organization [employer] Address [address] [facility] [address] 7[address] [place] [address] Care Team Providers Care Food Science Technician Name Role Phone Unavailable Primary Care Provider Unavailabl e Encounter Details Date Type Department Care Team (Late st Contact Info) Description 07/02/2024 Telephone [facility] ADULT DENTAL [address] [place] [address] Sudhir Weinstein, RACHELE [address] [place] [address] Social History Tobacco Use Types Packs/Day Years [...] explained that now patient lives with his foster care worker and she will reach patients mother to call us back to schedule this appointment. documented in this encounter Plan of Treatment Not on file documented as of this encounter Visit Diagnoses Not on filedocumented in this encounter
== END 2024-07-11 10:54 | disposition home or self-care (01) ==
LOC: HO.HMCHD 09:57
PROVIDERS: PCP Internal Medicine; Visit Provider Internal Medicine
DX: E11.9 Type 2 diabetes mellitus without complications (principal); Z79.4 Long term (current) use of insulin; F25.9 Schizoaffective disorder, unspecified

== ENCOUNTER → 2024-07-11 09:57 | Outpatient (BNVA) | payer MEDICARE, MEDICAID, SELFPAY | PROVIDERS: PCP Internal Medicine; Visit Provider Internal Medicine | DX: E11.9 Type 2 diabetes mellitus without complications (principal); F25.9 Schizoaffective disorder, unspecified; Z79.4 Long term (current) use of insulin | CPT/HCPCS: 96127; 99202 ==

== ENCOUNTER 2024-07-14 20:38 | Emergency (ER) | payer MEDICARE, MEDICAID, SELFPAY ==
[2024-07-14 20:52] VITALS: BP 142/91; PULSE 107; RESP 18; TEMP 36.7; O2SAT 98; BMI 25.7
--- NOTE | 2024-07-14 20:56 | ED_ITS ---
HPI - General Adult General Chief complaint: Recheck/Abnormal Lab/Rx Stated complaint: high blood sugar Time Seen by Provider: 07/15/24 01:17 Source: patient Mode of arrival: ambulatory Limitations: no limitations History of Present Illness ED Provider: Jose Park DO HPI narrative: 49-year-old male with past medical history of insulin-dependent diabetes currently on 36 units of long-acting insulin at night and a sliding scale during the day, diabetes insipidus, hyperlipidemia, bipolar disorder, PTSD, and schizoaffective disorder presents to the emergency department due to asymptomatic hyperglycemia well over 400 today. History of to obtain from the patient and his mother at bedside. They have not noticed any significant change in his diet. He has been receiving his normal insulin regimen and this morning his personal property appraiser placed a continuous glucose monitoring on for the 1st time. This did not correlate with fingerstick glucose levels and both readings were elevated. The patient has not had any flank pain, abdominal pain, nausea, vomiting, diarrhea, urinary symptoms, fevers, chills or any additional symptoms today. He follows with an tourist guide and has not yet seen a wastewater operator regarding his diet. Mother reports that he had noodles for dinner tonight. Related Data Home Medications ?Medication ?Instructions ?Recorded ?Confirmed ascorbic acid (vitamin C) 500 mg 1 tab PO DAILY 03/02/20 07/10/24 tablet (Vitamin C) cholecalciferol (vitamin D3) 25 1 cap PO DAILY 03/02/20 07/10/24 mcg (1,000 unit) capsule (Vitamin D3) clozapine 100 mg tablet 300 mg PO BEDTIME 03/02/20 07/10/24 clozapine 50 mg tablet 50 mg PO DAILY 03/02/20 07/10/24 fluticasone propionate 50 1 spray intranasal BID 03/02/20 07/10/24 mcg/actuation nasal spray,suspension haloperidol 5 mg tablet 5 mg PO BEDTIME 03/02/20 07/10/24 metformin 1,000 mg tablet 1 tab PO BID 03/02/20 07/10/24 multivitamin 1 tab PO DAILY 03/02/20 07/10/24 sertraline 100 mg tablet 1.5 tab PO DAILY 03/02/20 07/10/24 simvastatin 80 mg tablet 1 tab PO DAILY 03/02/20 07/10/24 allopurinol 100 mg tablet 100 mg PO DAILY 06/09/20 07/10/24 apixaban 2.5 mg tablet (Eliquis) 2.5 mg PO BID 07/02/23 07/10/24 clonazepam 1 mg tablet 0.5 mg PO BID 07/02/23 07/10/24 Previous Rx's ?Medication ?Instructions ?Recorded alcohol swabs 1 pad topical QIDACHS #100 ea 07/04/23 pen needle, diabetic 32 gauge x #200 ea 07/08/24 Basaglar KwikPen U-100 Insulin 100 46 unit (0.46 mL) subcut QPM 90 07/15/24 unit/mL (3 mL) subcutaneous days #42 mL (insulin glargine) blood sugar diagnostic (FreeStyle #100 ea 07/15/24 Lite Strips) insulin aspart U-100 100 unit/mL 1 sliding scale dose subcut 07/15/24 (3 mL) subcutaneous pen (Novolog USEASDIRECTD 30 days #6 mL FlexPen U-100 Insulin aspart) lancets 28 gauge (FreeStyle #100 ea 07/15/24 Lancets) Allergies Allergy/AdvReac Type Severity Reaction Status Date / Time penicillin G Allergy Unknown Unknown Verified 07/14/24 20:55 Penicillins [PENICILLINS] Allergy Unknown Unknown Verified 07/14/24 20:55 Review of Systems 2 Review of Systems: Yes all other systems are reviewed and are negative [facility] Past Medical History Medical History Insulin dependent type 2 diabetes mellitus Gout Hyperlipidemia Intellectual disability Bipolar 1 disorder Saddle pulmonary embolus Diabetes insipidus High cholesterol Anxiety PTSD (post-traumatic stress disorder) Schizo affective schizophrenia Surgical History Hx of tooth extraction Hx of excision of mass Family History Family History Mother Fibromyalgia Post traumatic stress disorder (PTSD) Anxiety Osteopenia High cholesterol Anemia Cerebellar ataxia Social History Social History Household Members: Other Housing: Other Housing Other:: senior care/Assisted living Alcohol intake: never Patient Tobacco Use Status: Never used Tobacco Smoked in Last 30 Days: No Use of substances other than those prescribed or required for medical reasons: No Advance Directives: Yes Advance Directives on File: Yes Advance Directives Date on File: 04/20/21 service: No Current occupational status: disabled Cognitive needs: Yes Hearing needs: No Vision needs: No Physical Exam ED Vital Signs: Vital Signs - 24 hr 07/14/24 20:52 07/15/24 02:46 07/15/24 02:49 Temperature 98.0 F 97.9 F 97.9 F Pulse Rate 107 H 96 96 Respiratory Rate 18 16 16 Blood Pressure 142/91 H 119/72 119/72 Pulse Oximetry 98 98 98 Oxygen Delivery Method Room Air Room Air Room Air BMI result Body Mass Index 25.7 Constitutional: ?Alert, oriented, speaking in full sentences HEENT: ?Normocephalic, atraumatic. ?Moist mucous membranes Eyes: ?PERRL, EOMI Neck: ?Supple, nontender Chest: ?No chest wall tenderness Respiratory: ?Lungs clear to auscultation, no increased work of breathing Cardio: ?Regular rate and rhythm, no murmur, 2+ radial and DP pulses symmetrically GI: ?Soft, nondistended, nontender Back: ?Normal range of motion, nontender Skin: ?No rash, no lesions Neuro: ?Alert and oriented to person, place and time, moves all 4 extremities, no focal deficits Extremities: ?No swelling or tenderness, full range of motion Psych: ?Calm, alert and cooperative, appropriate behavior Course Course Course Narrative: This is a rapid medical exam performed by Lisa Vallecillo PA-C. 49-year-old male with a history of diabetes, schizoaffective disorder who presents with hyperglycemia. Patient has been having issues regulating his blood sugars over the past several weeks. No medication changes, the patient has been adherent. He is asymptomatic. We will screen basic labs beta hydroxy and a urinalysis. The patient is stable and can return to the waiting room pending his full medical assessment. Medical Decision Making Medical Decision Making MDM Narrative: Patient presenting with asymptomatic hyperglycemia today. Likely related to recent changes in diet. He is well-appearing and has unremarkable vital signs and exam. He was advised to report here due to ketonuria and blood sugar over 350. Unknown if he received his nightly long-acting insulin. Labs show unremarkable CBC, hyperglycemia to 299 without signs of DKA, creatinine elevated to 1.54 which is similar to a week ago. Without giving any insulin here, his level continues to lower to 251 on recheck. No indication for further management here and due to concern for hypoglycemia, instructed patient and mother to recheck glucose at home and apply the appropriate sliding scale short- acting insulin. He has follow up with endocrinology and we provided resources for low glycemic foods. His sodium is unremarkable today as well. He is not requiring any fluids. Discussed with patient and mother to return with development of any symptoms and follow up closely with tourist guide. Lab Data MDM Lab Attestation statement: I reviewed the patient's lab results. 07/14/24 21:20 07/14/24 21:20 Labs: Lab Results 07/14/24 07/15/24 Range/Units 21:20 02:18 WBC 7.5 (4.8-10.8) X10*3/uL RBC 4.60 (4.60-5.80) X10*6/uL Hgb 13.2 L (14.0-18.0) g/dl Hct 38.5 L (42.0-52.0) % MCV 83.7 (80.0-98.0) fL MCH 28.7 (27.0-33.0) pg MCHC 34.3 (31.0-36.0) g/dl RDW 13.6 (11.0-16.0) % Plt Count 192 (160-400) X10*3/uL MPV 11.4 (9.4-12.4) fL Immature Gran % (Auto) 0.4 (0.0-0.4) % Neut % (Auto) 51.6 (45-73) % Lymph % (Auto) 34.7 (20-40) % [facility] % (Auto) 5.2 (2-11) % Eos % (Auto) 7.3 H (0-4) % Baso % (Auto) 0.8 (0-2) % Lymph # (Auto) 2.6 (1.2-4.9) X10*3/uL [facility] # (Auto) 0.4 (0.1-1.2) X10*3/uL Eos # (Auto) 0.6 H (0.0-0.4) X10*3/uL Baso # (Auto) 0.1 (0.0-0.2) X10*3/uL Abs Immat Gran (auto) 0.03 (0.00-0.03) X10*3/uL Absolute Neuts (auto) 3.9 (2.0-8.3) x10*3/uL Absolute Nucleated RBC 0.000 (0.0-0.012) X10*3/uL Nucleated RBC % (auto) 0.0 (0.0-0.2) /100WBC Sodium 138 (135-145) mmol/L Potassium 3.8 (3.3-5.1) mmol/L Chloride 106 (96-108) mmol/L Carbon Dioxide 23 (22-29) mmol/L Anion Gap 13 (12-20) BUN 16 (9-16) mg/dL Creatinine 1.54 H (0.5-1.4) mg/dL Estim Creat Clear Calc 55.4 Estimated GFR 49 POC Glucose 251 H (60-115) mg/dL Random Glucose 299 H (60-115) mg/dL Calcium 9.2 (8.4-10.2) mg/dL Magnesium 1.5 L (1.6-2.6) mg/dL Total Bilirubin 0.3 (0.0-1.0) mg/dL AST 21 (5-37) U/L ALT 40 (0-40) U/L Alkaline Phosphatase 106 (39-117) U/L Total Protein 7.0 (6.5-8.0) g/dL Albumin 4.1 (3.5-5.0) g/dL Beta-Hydroxybutyrate 0.17 (0.02-0.27) mmol/L Discharge Plan Discharge Clinical Impression: Hyperglycemia Patient Disposition: Home, Self-Care Instructions: Diabetic Hyperglycemia (ED) Additional Instructions: Gautam was evaluated for high blood sugar at home but there were no other concerning lab abnormalities today. His exam was also reassuring. We repeated his glucose and it continues to lower. We do not have NovoLog here so we recommend that you check his blood sugar again when you return home and administer the sliding scale according to the level. Please follow up with the tourist guide and wastewater operator as scheduled to discuss the continuous glucose monitoring. Continue doing the fingerstick checks to correlate the levels and log these. Please see the low glycemic index foods below to help control his blood sugars with his diet. Glycemic index (GI) measures how quickly a carbohydrate-containing food raises blood sugar levels.?Foods with a low GI are digested slowly, resulting in a gradual and moderate increase in blood sugar.? Examples of Low GI Foods: Vegetables:? * Non-starchy vegetables (e.g., broccoli, cauliflower, spinach) * Tomatoes * Legumes (e.g., beans, lentils) Grains:? * Whole grains (e.g., quinoa, oats, barley) * Steel-cut oats Fruits:? * Berries (e.g., blueberries, raspberries, strawberries) * Apples * Pears Nuts and Seeds:? * Nuts (e.g., almonds, walnuts, pecans) * Seeds (e.g., nuvia seeds, flaxseeds) Prescriptions: No Action (DME) FreeStyle Lite Strips Strip See Rx Instructions .Route Qty: 100 4RF Rx Instructions: As directed tests 3X day (DME) lancets [FreeStyle Lancets] 28 gauge misc See Rx Instructions .ROUTE .MEDSUPPLY Qty: 100 1RF Rx Instructions: 3 times a day prn sensor failure or to confirm glucose dispense as 33 guage if available multivitamin Tablet 1 tab PO DAILY haloperidol 5 mg Tablet 5 mg PO BEDTIME clozapine 100 mg tablet 300 mg PO BEDTIME sertraline 100 mg tablet 1.5 tab PO DAILY simvastatin 80 mg tablet 1 tab PO DAILY ascorbic acid (vitamin C) [Vitamin C] 500 mg tablet 1 tab PO DAILY metformin 1,000 mg tablet 1 tab PO BID fluticasone propionate 50 mcg/actuation spray,suspension 1 spray intranasal BID cholecalciferol (vitamin D3) [Vitamin D3] 25 mcg (1,000 unit) capsule 1 cap PO DAILY clozapine 50 mg Tablet 50 mg PO DAILY clonazepam 1 mg tablet 0.5 mg PO BID Eliquis 2.5 mg tablet 2.5 mg PO BID alcohol swabs Pads, Medicated 1 pad TOPICAL QIDACHS Qty: 100 0RF Rx Instructions: Use four times a day or as directed. allopurinol 100 mg tablet 100 mg PO DAILY (DME) pen needle, diabetic 32 gauge x /32 needle See Rx Instructions .ROUTE .MEDSUPPLY Qty: 200 6RF Rx Instructions: qid insulin glargine [Basaglar KwikPen U-100 Insulin] 100 unit/mL (3 mL) insulin pen 46 unit subcut QPM 90 Days Qty: 42 4RF insulin aspart U-100 [Novolog FlexPen U-100 Insulin] 100 unit/mL (3 mL) insulin pen 1 sliding scale dose subcut USEASDIRECTD 30 Days Qty: 6 3RF Rx Instructions: 80-150 4 units 151-200 6 units 201-250 8 units 251-300 10 units 301-350 12 units over 350 14 units Interventions: ED Discharge Assessment Last Done: 07/15/24 02:49 Discharge Date/Time: 07/15/24 02:49 Print Language: [place]
[2024-07-14 21:57] LABS: MANUAL DIFF FLAG NO
[2024-07-14 21:59] LABS: Basophils Absolute Auto 0.1 X10*3/uL (0.0-0.2); Basophils Percent Auto 0.8 % (0-2); Eosinophils Absolute Auto 0.6 X10*3/uL (0.0-0.4); Eosinophils Percent Auto 7.3 % (0-4); Hematocrit 38.5 % (42.0-52.0); Hemoglobin 13.2 g/dl (14.0-18.0); Imm Gran Abs Auto 0.03 X10*3/uL (0.00-0.03); Imm Gran Pct Auto 0.4 % (0.0-0.4); Lymphocytes Absolute Auto 2.6 X10*3/uL (1.2-4.9); Lymphocytes Percent Auto 34.7 % (20-40); Mean Corpuscular HGB Conc 34.3 g/dl (31.0-36.0); Mean Corpuscular Hemoglobin 28.7 pg (27.0-33.0); Mean Corpuscular Volume 83.7 fL (80.0-98.0); Mean Platelet Volume 11.4 fL (9.4-12.4); Monocytes Absolute Auto 0.4 X10*3/uL (0.1-1.2); Monocytes Percent Auto 5.2 % (2-11); Neutrophils Absolute Auto 3.9 x10*3/uL (2.0-8.3); Neutrophils Percent Auto 51.6 % (45-73); Platelet Count 192 X10*3/uL (160-400); Red Cell Distribution Width 13.6 % (11.0-16.0); White Blood Count 7.5 X10*3/uL (4.8-10.8)
[2024-07-14 22:24] LABS: Alanine Aminotransferase 40 U/L (0-40); Albumin Level 4.1 g/dL (3.5-5.0); Alkaline Phosphatase 106 U/L (39-117); Anion Gap 13 (12-20); Aspartate Amino Transferase 21 U/L (5-37); Beta-Hydroxybutyrate 0.17 mmol/L (0.02-0.27); Bilirubin Total 0.3 mg/dL (0.0-1.0); Blood Urea Nitrogen 16 mg/dL (9-16); Calcium 9.2 mg/dL (8.4-10.2); Carbon Dioxide 23 mmol/L (22-29); Chloride 106 mmol/L (96-108); Creatinine Clr Calc Pharmacy 55.4; Estimated Glomerular Filt Rate 49; Glucose Random 299 mg/dL (60-115); Magnesium 1.5 mg/dL (1.6-2.6); Potassium 3.8 mmol/L (3.3-5.1); Sodium 138 mmol/L (135-145)
[2024-07-15 02:23] LABS: Glucose, Whole Blood 251 mg/dL (60-115)
[2024-07-15 02:46] VITALS: BP 119/72; PULSE 96; RESP 16; TEMP 36.6; O2SAT 98
[2024-07-15 02:49] VITALS: BP 119/72; PULSE 96; RESP 16; TEMP 36.6; O2SAT 98
== END 2024-07-15 02:49 | disposition home or self-care (01) ==
PROVIDERS: Physician Assistant Medical; Emergency Provider Emergency Medicine; PCP Internal Medicine
DX: E11.65 Type 2 diabetes mellitus with hyperglycemia (principal); R79.89 Other specified abnormal findings of blood chemistry; Z79.899 Other long term (current) drug therapy; Z79.4 Long term (current) use of insulin
CPT/HCPCS: 36415; 80053; 82010; 82947; 83735; 85025; 99283; 99284

== ENCOUNTER 2024-07-22 07:24 | Outpatient (REF) | payer MEDICARE, MEDICAID, SELFPAY ==
--- OUTSIDE RECORDS SUMMARY | 2024-07-22 07:27 | XMS_ITS | Clinical Summary ---
Author Organization [employer] Address [address] [place] [address] [address]t [place] [address] Care Team Providers Care Sap Fico Architect Name Role Phone Unavailable Primary Care Provider Unavailabl e Allergies No known active allergies Medications clindamycin (Cleocin) 150 MG capsule 2 caps one hour prior to dental procedure 4 capsule 4 Active Encounters Date Type Department Care Team Description 07/02/2024 Telephone [facility] ADULT DENTAL [address] [place] [address] Sudhir Weinstein DMD from Last 3 Months [...] Most Recently Relevant to Health Maintenance Insurance [facility]AL-[facility] MEDICAID STAND ADULT
--- OUTSIDE RECORDS SUMMARY | 2024-07-22 07:27 | XMS_ITS ---
Author Organization [facility] Address [address] [place] [address] Care Team Providers Care Studio Potter Name Role Phone Trevor Conley MD Primary Care Provider Unavaila Marcus Almanza Unavailable [phone] Allergies Allergen (clinical drug ingredient) Drug/Non Drug [...] Ordered Date Performed Result Body Sit e 75326-GEJGIKN NAIL, 6 OR MORE 05/13/2024 N/A Encounters Encounter Location Date Provider Diagnosis [facility] [address] [address] 05/13/2024 Marcus Tracey Pain in right toe(s) [...] Treatment Pending Test Test Name Order Date [id number] NAIL, 6 OR MORE 05/13/2024 Next Appt Details Follow Up: prn, Reason: Provider Name:Marcus Tracey , 08/19/2024 04:00:00 PM, [address] [place] [address], [phone], Procedure Notes * Category Sub-Category Detail [...] use of a nail nipper and/or dremel-type cylinder grinder, to a more viable healthy nail [...] * Moises SIMMONSinDOB:1975 ( 48 yo M)Acc No.[id number]:05/13/2024 Progress Note Patient:?SIMMONS Gautam Provider:?Marcus Tracey DPM :1975???Age:48 Y???Sex:Male Prosper e:05/13/2024 Address:[address] [facility], [place], [place] Pcp:Trevor Conley MD Subjective: * Chief Complaints: [...] segura Surgical History * Hospitalization/Major Diagno stic Procedure:?[facility] ER sodium too high 01/15/2020 [...] use of a nail nipper and/or dremel-type cylinder grinder, to a more viable healthy nail [...] to maintain effectiveness in symptomatic relief - 39735.? * Procedure Codes:?39789 DEBRI DE NAIL, 6 OR [id number] Pall serv during david * Preventive Medicine:? [...] Tracey DPM Date:?2024 Generated for Luz burris/Danny/Nadine on:?07/22/2024 07:27 AM EDT History and Physical Notes * HPI (History of Present Illness) Category Sub-Category Detail Notes Category Not es Toe pain Treatments: Rx shoes At Risk footcare Pt States Last PCP Visit: Date: Examination Category Sub-Category Detail Notes Category Not es Orthopedic FOOTWEAR EVALUATION: good condit ion, exhibit proper fit and accommodation for pedal [...]
--- OUTSIDE RECORDS SUMMARY | 2024-07-22 07:27 | XMS_ITS ---
Author Organization [facility] Address [address] [place] [address] Care Team Providers Care Chipper Operator Name Role Phone Trevor Conley MD Primary Care Provider Naveen Flores Jr REASON FOR VISIT screening Encounters Encounter Location Date Provider Diagnosis [facility] [address] [place] [phone] 05/23/2024 Naveen Yang Jr Colon cancer screening Z12.11 Assessments Encounter Date Diagnosis (ICD Code) Assessment Notes Treatment Notes Treatment Clinical Notes Section Notes 05/23/2024 Colon cancer screening (ICD-10 - Z12.11) Plan Of Treatment No Information Progress Notes * ANA FERMIN ADOB:1975 (49 yo M)Acc No.[id number]:05/23/2024 COLON WITH MAC Patient:?SAM PEREZIN Dimitrios Provider:?Naveen Yang MD :1975???Age:48 Y???Sex:Male Prosper e:05/23/2024 Address:[address] [place], [place] [id number] Pcp:Trevor Conley MD Subjective: * Chief Complaints: * ???1. Screening. * Medical History:? Objective: * Vitals:? Assessment: * Assessment: 1.?Colon cancer screening - Z12.11 (Primary)??? Plan: * Treatment: * Procedure Codes:?86091 DIAGN OSTIC COLONOSCOPY, 0528F RCMND FLW-UP 10 YRS DOCD * * The named appointment provid er may or may not be the originator of this progress note, and it is not deemed complete until electronically signed by the appointment provider. Sign off status: Pending * Provider:?Naveen Yang MD Date:?0 05/23/2024 Generated for Luz burris/Danny/Nadine on:?07/22/2024 07:27 AM EDT
--- OUTSIDE RECORDS SUMMARY | 2024-07-22 07:27 | XMS_ITS | Patient Health Record ---
Author Organization [facility] Address [address] [place] [address] Care Team Providers Care Financial Accounting Analyst Name Role Phone Trevor Conley MD Primary Care Provider Marcus Bonds Unavailable [phone] Allergies Allergen (clinical drug ingredient) Drug/Non Drug [...] Problem Acquired hammer toe of right foot (01355048877281 05) Other hammer toe(s) (acquired), right foot (M20.41) Active confirmed Response to treatment,I mprovement Problem Acquired hammer toe of left foot (23706006562151 03) Other hammer toe(s) (acquired), left foot (M20.42) Active confirmed Response to treatment,I mprovement Problem Type 2 diabetes mellitus without complication (226953829) Type 2 diabetes mellitus without complication (E11.9) Active confirmed Vital Signs Blood pressure diastolic 70 mm Hg 05/13/2024 Height 5ft 6in in 05/13/2024 Blood pressure systolic 118 mm Hg 05/13/2024 Weight 166 lbs 05/13/2024 BMI 26.79 kg/m2 05/13/2024 Procedures Procedure Date Ordered Date Performed Result Body Sit e 30808-QENXFRV NAIL, 6 OR MORE 09/25/2023 N/A 74625-UJCNEKZ NAIL, 6 OR MORE 05/13/2024 N/A Encounters Encounter Location Date Provider Diagnosis [facility] [address] [place] [address] 09/25/2023 Marcusblaze Tracey Pain in right toe(s) M79.674 ; Tinea unguium B35.1 ; Pain in left toe(s) M79.675 ; Type 2 diabetes mellitus without complication E11.9 ; Xerosis of skin L85.3 ; Other hammer toe(s) (acquired), left foot M20.42 and Other hammer toe(s) (acquired), right foot M20.[address] [address] 05/13/2024 Marcus Tracey Pain in right toe(s) M79.674 ; Tinea unguium B35.1 ; Pain in left toe(s) M79.675 ; Type 2 diabetes mellitus without complication E11.9 ; Other hammer toe(s) (acquired), right foot M20.41 and Other hammer toe(s) (acquired), left foot M20.[address] [address] 12/25/2023 Marcus Tracey [address] [address] 02/18/2024 Marcus Tracey Assessments Encounter Date Diagnosis [...] Treatment Pending Test Test Name Order Date 16802-MDVFMOV NAIL, 6 OR MORE 02/03/2020 27317-MZXFFAI NAIL, 6 OR MORE 05/07/2020 61674-WPVEEOZ NAIL, 6 OR MORE 08/10/2020 23624-YHKXPFX NAIL, 6 OR MORE 11/26/2020 21654-JKTSCHO NAIL, 6 OR MORE 03/04/2021 29828-RIZGDNZ NAIL, 6 OR MORE 06/07/2021 68913-AKDVRVU NAIL, 6 OR MORE 09/06/2021 35390-IAPSHWP NAIL, 6 OR MORE 01/20/2022 82611-BDSMPIQ NAIL, 6 OR MORE 06/13/2022 42086-FVYHFTD NAIL, 6 OR MORE 09/19/2022 51890-KGRXFME NAIL, 6 OR MORE 12/26/2022 79201-JNSCPRK NAIL, 6 OR MORE 03/27/2023 20295-WLEZLFS NAIL, 6 OR MORE 06/26/2023 48084-BJEEHFF NAIL, 6 OR MORE 09/25/2023 10612-TEGZWVK NAIL, 6 OR MORE 05/13/2024 Next Appt Details Provider Name:Marcus Tracey , 08/19/2024 04:00:00 PM, [address] [facility], [place], [address], Insurance Providers Payer Name Payer Address Payer Phone Subscriber Number Group Number Insured Name Patient Relationship to Insured Coverage Start Date Coverage End Date Medicare National Govt Svcs Inc [address] [place] [address] [id number] [place] Gautam Self - patient is the insured Medical (General) History Medical History History ICD Code Anxiety Depression Gout Psychiatric disorder Chicken pox type II diabetes ptsd CAD (Cholesterol) Mild Retardation Surgical History Surgery Date(Month/Year) Hospitalization History Reason Date(Month/Year) [facility] ER sodium too high 12/23
--- OUTSIDE RECORDS SUMMARY | 2024-07-22 07:27 | XMS_ITS ---
Author Organization [facility] Address [address] [place] [address] Care Team Providers Care Facility Designer Name Role Phone Trevor Cnoley MD Primary Care Provider Naveen Flores Jr REASON FOR VISIT eliquis note Encounters Encounter Location Date Provider Diagnosis [facility] [address] [place] [address] 05/19/2024 Naveen Yang Jr Plan Of Treatment No Information Progress Notes * FERMIN PEREZ ADOB:1975 (48 yo M)Acc No.[id number]:05/19/2024 Patient:?FERMIN PEREZ :1975???Age:48 Y???Sex:Male Address:[address] [place] [address] * true * Date:? Generated for Luz burris/Danny/eTransmitting on:?07/22/2024 07:26 AM EDT
--- OUTSIDE RECORDS SUMMARY | 2024-07-22 07:28 | XMS_ITS | Patient Health Record ---
Author Organization [facility] Address [address] [place] [address] Care Team Providers Care Lehr Stripper Name Role Phone Trevor Conley MD Primary Care Provider Naveen Flores Jr Unavailable Allergies Allergen (clinical drug ingredient) Drug/Non Drug Allergy documented on EMR Reaction Allergy Type Onset Date Status Penicillin Unknown Drug Allergy Active Results Component Value Reference Range Notes Glucose, Whole Blood Reviewed date:05/23/2024 09:24:07 PM Interpretation: Performing Lab:[facility], [address] [place] [id number] Notes/Report: Glucose, Whole Blood 233 60-115 mg/dL METER # : [id number] Reason For Referral No Information Medications Medication [...] Problem Status W/U Status Risk Notes Problem 257419371 Colon cancer screening (Z12.11) Active confirmed Problem 057211631 senior care (curre nt) use of anticoagulants (Z79.01) Active confirmed Problem 289774405 Long-term curren t use of high risk medication other than anticoagulant (Z79.899) Active confirmed Vital Signs Blood pressure diastolic 00 mm Hg 05/01/2024 Height 5 ft 7 in in 05/01/2024 Blood pressure systolic 00 mm Hg 05/01/2024 Weight 171 lbs 05/01/2024 BMI 26.78 kg/m2 05/01/2024 Encounters Encounter Location Date Provider Diagnosis [facility] [address] [place], [place] [id number] 05/23/2024 Naveen Yang Jr Colon cancer screening Z12.11 [facility] [address] [place] [address] 05/01/2024 Naveen Yang Jr Colon cancer screening Z12.11 ; Long-term current use of high risk medication other than anticoagulant Z79.899 and senior care (current) use of anticoagulants Z79.01 [facility] [address] [place] [address] 05/14/2024 Naveen Yang Jr [facility] [address] [place] [address] 05/19/2024 Naveen Yang Jr Assessments Encounter Date [...] insulin the night before the prep. 05/01/2024 termite exterminator (current) use of anticoagulants (ICD-10 - Z79.01) [...] [place] [address] [address] [id number] FERMIN PEREZ Self - patient is the insured MEDICAID OF [employer] [address] [place] [address] [phone] [id number] FERMIN PEREZ Self - patient is the insured Medical (General) History Medical History History ICD Code Diabetes mellitus type 2 Pulmonary embolus Schizoaffective disorder bipolar disorder Intellectual disability PTSD Hyperlipidemia Surgical History Surgery Date(Month/Year) Excision of right axillary lesion
--- OUTSIDE RECORDS SUMMARY | 2024-07-22 07:28 | XMS_ITS | Encounter Summary ---
Author Organization [facility] [employer] Address [address] [facility] 7t [place] [address] Care Team Providers Care Adult Basic Studies Teacher Name Role Phone Unavailable Primary Care Provider [...]
--- OUTSIDE RECORDS SUMMARY | 2024-07-22 07:28 | XMS_ITS ---
Author Organization [facility] Address [address] [place] [address] Care Team Providers Care Government Property Inspector Name Role Phone Trevor Conley MD Primary Care Provider Marcus Bonds Unavailable [phone] Encounters Encounter Location Date Provider Diagnosis [facility] [address] [place] [address] 02/19/2024 Marcus Tracey Plan Of Treatment Next Appt Details Provider Name:Marcus Tracey , 08/19/2024 04:00:00 PM, [address] [place] [address], [phone], Progress Notes * ANA MoisesKarenOB:1975 ( 49 yo M)Acc No.[id number]:02/19/2024 Progress Note Patient:?Gautam SIMMONS Provider:?Marcus Tracey DPM :1975???Age:48 Y???Sex:Male Prosper e:02/19/2024 Address:[facility] , [address] [place], [place] [id number] Pcp:Trevor Conley MD Subjective: * Chief Complaints: [...] Tracey DPM Date:?2023 Generated for Luz burris/Danny/Nadine on:?07/22/2024 07:27 AM EDT
--- OUTSIDE RECORDS SUMMARY | 2024-07-22 07:28 | XMS_ITS ---
Author Organization [facility] Address [address] [place] [address] Care Team Providers Care Imaging Scheduler Name Role Phone Trevor Conley MD Primary Care Provider Naveen Flores Jr REASON FOR VISIT nurse order Encounters Encounter Location Date Provider Diagnosis [facility] [address] [place] [address] 05/14/2024 Naveen Yang Jr Plan Of Treatment No Information Progress Notes * FERMIN PEREZ ADOB:1975 (48 yo M)Acc No.[id number]:05/14/2024 Patient:?FERMIN PEREZ :1975???Age:48 Y???Sex:Male Address:[address] [place] [address] * true * Date:? Generated for Luz burris/Danny/eTransmitting on:?07/22/2024 07:28 AM EDT
[2024-07-22 09:47] LABS: MANUAL DIFF FLAG NO
[2024-07-22 09:50] LABS: Basophils Absolute Auto 0.1 X10*3/uL (0.0-0.2); Basophils Percent Auto 0.7 % (0-2); Eosinophils Absolute Auto 0.7 X10*3/uL (0.0-0.4); Eosinophils Percent Auto 10.7 % (0-4); Hematocrit 42.7 % (42.0-52.0); Hemoglobin 14.2 g/dl (14.0-18.0); Imm Gran Abs Auto 0.01 X10*3/uL (0.00-0.03); Imm Gran Pct Auto 0.1 % (0.0-0.4); Lymphocytes Absolute Auto 2.6 X10*3/uL (1.2-4.9); Lymphocytes Percent Auto 38.2 % (20-40); Mean Corpuscular HGB Conc 33.3 g/dl (31.0-36.0); Mean Corpuscular Hemoglobin 28.8 pg (27.0-33.0); Mean Corpuscular Volume 86.6 fL (80.0-98.0); Mean Platelet Volume 10.9 fL (9.4-12.4); Monocytes Absolute Auto 0.4 X10*3/uL (0.1-1.2); Monocytes Percent Auto 5.4 % (2-11); Neutrophils Percent Auto 44.9 % (45-73); Platelet Count 204 X10*3/uL (160-400); Red Blood Count 4.93 X10*6/uL (4.60-5.80); Red Cell Distribution Width 14.1 % (11.0-16.0); White Blood Count 6.7 X10*3/uL (4.8-10.8)
== END 2024-07-22 07:25 | disposition home or self-care (01) ==
LOC: HO.10HDL 07:24
PROVIDERS: Visit Provider Psychiatry & Neurology Psychiatry
DX: Z79.899 Other long term (current) drug therapy (principal)
CPT/HCPCS: 36415; 85025

== ENCOUNTER 2024-07-23 15:55 | Outpatient (AMB) | payer MEDICARE, MEDICAID, SELFPAY ==
--- NOTE | 2024-07-23 15:58 | A.OFFVIS_ITS ---
Intake Intake Visit Reasons: T2DM Gym Attendant Required: No Accompanied by: Other Relationship Allergies penicillin G Allergy (Unknown, Verified 07/14/24 20:55) Unknown Penicillins [PENICILLINS] Allergy (Unknown, Verified 07/14/24 20:55) Unknown HPI Comprehensive Diabetes Asmnt Most Recent Diabetes Results: Hemoglobin A1c 6.4 % 01/16/20 Microalb/Creat Ratio 69.8 ug/mg cr (<30) H 03/17/24 Cholesterol 178 mg/dL 11/24/22 HDL Cholesterol 49 mg/dL 11/24/22 Triglycerides 167 mg/dL 11/24/22 Creatinine 1.54 mg/dL (0.5-1.4) H 07/14/24 Blood Urea Nitrogen 16 mg/dL (9-16) 07/14/24 Sodium 138 mmol/L (135-145) 07/14/24 Potassium 3.8 mmol/L (3.3-5.1) 07/14/24 Chloride 106 mmol/L (96-108) 07/14/24 Carbon Dioxide 23 mmol/L (22-29) 07/14/24 Calcium 9.2 mg/dL (8.4-10.2) 07/14/24 AST 21 U/L (5-37) 07/14/24 ALT 40 U/L (0-40) 07/14/24 Total Protein 7.0 g/dL (6.5-8.0) 07/14/24 Albumin 4.1 g/dL (3.5-5.0) 07/14/24 [facility] Medical History Insulin dependent type 2 diabetes mellitus Gout Hyperlipidemia Intellectual disability Bipolar 1 disorder Saddle pulmonary embolus Diabetes insipidus High cholesterol Anxiety PTSD (post-traumatic stress disorder) Schizo affective schizophrenia Surgical History Hx of tooth extraction Hx of excision of mass Family History Mother Fibromyalgia Post traumatic stress disorder (PTSD) Anxiety Osteopenia High cholesterol Anemia Cerebellar ataxia Social History Household Members: Other Housing: Other Housing Other:: alf/Assisted living Alcohol intake: never Patient Tobacco Use Status: Never used Tobacco Advance Directives Date on File: 04/20/21 service: No Current occupational status: disabled Cognitive needs: Yes Hearing needs: No Vision needs: No Assessment & Plan Assessment & Plan (1) Insulin dependent type 2 diabetes mellitus: Code(s): E11.9 - Type 2 diabetes mellitus without complications; Z79.4 - longterm (curr ent) use of insulin Plan: Diabetes self-management education and support participation record Assessment/scale: 1= needs instructed? 2= needs review? 3= comprehend keep point? 4= demonstrates understanding/ competent? NC= Not Covered Topics Learning Objective: Initial visit Initial or post srvc Initial or post srvc Initial or post srvc Initial or post srvc Initial or post srvc Post srvc Comments Pre Edu-assessment/plan Outcome or reassess Outcome or reassess Outcome or reassess Outcome or reassess Outcome or reassess Outcome or reassess Diabetes pathophysiology 1 Healthy eating 1 Being active 1 Taking medication 1 Monitoring glucose 1 Acute complication 1 Chronic complicated 1 Lifestyle and healthy coping 1 Diabetes distress in support 1 B ?Diabetes pathophysiology: ?Defined diabetes med identify own type of diabetes; list 3 options for treating diabetes Healthy eating: ?Described effect of type, amount and ?timing of food on blood glucose; list 3 methods for planning meal Being active: ?State effect of exercise on blood glucose level Taking medication: ?State effect of diabetes medications on diabetes; name diabetes medications taking, action and side effects Monitoring glucose: ?Identify recommended blood glucose targets and personal target Acute complication: ?List symptoms and treatment of hyper and hypoglycemia, DKA, sick day guidelines and guidelines for severe weather or situations of crisis and diabetes supply manage Chronic complication: ?To find the relationship of blood glucose levels to long- term complications of diabetes in screening and preventative measures Lifestyle and healthy coping: ?Described lifestyle and healthy coping strategies to rule out diabetes self-management Diabetes to stress and support: ?Recognize Diabetes to stress and be able to identified support options Learning objectives: The patient was provided with verbal and written education on the following topics as outlined below. 49 year old male with a past medical history of schizoaffective disorder, PTSD, learning disability, diabetes presenting for follow up. Accompanied by mom and caregiver metformin BID Lantus 36 units Novolog tid with meal 80-100 4 units 101-150 6 units 151-200 10 units 201-250 12 units 251-300 14 units 301-350 16 unitsover 350 18 units The patient met all learning objectives and was able to verbalize understanding and provide teach back of education topics discussed . The patient was provided with the opportunity to ask questions and all questions were answered. Topics covered in today?s session included: Personal Continuous Glucose Monitor: Patients CGM information reviewed, Pt uses Sarta with [place] Sensor data: Hypoglycemia: ? 3% Hyperglycemia:? 53% Time in Range:?44% Average glucose for the last 2 weeks?195 mg/dL Patient caregiver reports that he has been using lispro sliding scale at night along with Basaglar dose. Instructed caregiver and patient's mom that lispro, aspart should only be used prior to meals. If patient is not eating he should not take rapid insulin Patient is having some postprandial hypoglycemia, and overnight hypoglycemia. Instructed caregiver to stop giving rapid insulin at night this could be contributing to overnight hypoglycemia. Reviewed how to interpret trend arrows Reminded patient that to check finger sticks if symptoms do not match sensor reading. Discussed lag time between finger stick and sensor data.? Patient able to insert sensor independently at home without issue.? Insulin/Injectables (If applicable) * Storage/care of insulin?? * Injection sites? * Site rotation? * Onset, peak, duration * Drawing up insulin? * Injecting insulin/other injectables? * Sharps disposal Continuous blood glucose monitoring (if applicable) Hypoglycemia and Hyperglycemia * Signs and symptoms? * Causes?? * Treatment? * Preventing hypoglycemia? * When to seek medical attention Target Goals: * Blood glucose targets and how you feel when your blood glucose is in and out of your target ranges. * Monitoring and knowing your A1C. * What can make blood glucose go up and down and preventing high and low blood glucose. * Review of blood sugar targets in expected goal range and outside of expected goal range. * Problem solving and preventing hyper/hypoglycemia. * Sick day management of diabetes. * Using blood sugar results in decision making process in managing diabetes. ?Patient was receptive to information provided and participated in the discussion. Asked?appropriate questions and demonstrated good understanding of the topics discussed.? ? Educational Materials: The patient was provided with the following written educational materials: Target Goal handout Smart Goal: Treat hypoglycemia with rule of 15s, handout given Patient Response to instructions: Comprehension of Instructions: fair Readiness to make changes:? Contemplation How confident they feel about making changes: fair Portions of this note were created using voice recognition software, please excuse any words or phrases that may have been misinterpreted. Patient Instructions: Patient instruction: CGM provides information on blood glucose control throughout the day, including hyperglycemia and hypoglycemia. ? Continue to monitor blood glucose as instructed. Follow nutrition guidelines provided. Report any discomfort promptly to health care provider. ?Stay well-hydrated. You can bathe ,shower, swim and exerce while wearing the glucose sensor. Do not submerge glucose sensor in water for more than 30 minutes. Remove sensor for MRI or CAT scan. Avoid Xray machine in airports - remove sensor or request wand Coding Level of Care Code Est Pt Level 1 (70576) Diagnoses Insulin dependent type 2 diabetes mellitus E11.9; Z79.4
--- OUTSIDE RECORDS SUMMARY | 2024-07-23 17:55 | XMS_ITS | Patient Health Record ---
Author Organization [facility] Address [address] [place] [address] Care Team Providers Care Cnc Machinist 2Nd Shift Name Role Phone Trevor Conley MD Primary Care Provider Marcus Bonds Unavailable [phone] Allergies Allergen (clinical drug ingredient) Drug/Non Drug [...] Problem Acquired hammer toe of right foot (79983527543098 05) Other hammer toe(s) (acquired), right foot (M20.41) Active confirmed Response to treatment,I mprovement Problem Acquired hammer toe of left foot (52007087120158 03) Other hammer toe(s) (acquired), left foot (M20.42) Active confirmed Response to treatment,I mprovement Problem Type 2 diabetes mellitus without complication (089050052) Type 2 diabetes mellitus without complication (E11.9) Active confirmed Vital Signs Blood pressure diastolic 70 mm Hg 05/13/2024 Height 5ft 6in in 05/13/2024 Blood pressure systolic 118 mm Hg 05/13/2024 Weight 166 lbs 05/13/2024 BMI 26.79 kg/m2 05/13/2024 Procedures Procedure Date Ordered Date Performed Result Body Sit e 41291-LIVQDXB NAIL, 6 OR MORE 09/25/2023 N/A 67985-BPOSUPL NAIL, 6 OR MORE 05/13/2024 N/A Encounters Encounter Location Date Provider Diagnosis [facility] [address] [place] [address] 09/25/2023 Marcusblaze Tracey Pain in right toe(s) M79.674 ; Tinea unguium B35.1 ; Pain in left toe(s) M79.675 ; Type 2 diabetes mellitus without complication E11.9 ; Xerosis of skin L85.3 ; Other hammer toe(s) (acquired), left foot M20.42 and Other hammer toe(s) (acquired), right foot M20.[address] [address] 05/13/2024 Marcus Tracey Pain in right toe(s) M79.674 ; Tinea unguium B35.1 ; Pain in left toe(s) M79.675 ; Type 2 diabetes mellitus without complication E11.9 ; Other hammer toe(s) (acquired), right foot M20.41 and Other hammer toe(s) (acquired), left foot M20.[address] [address] 12/25/2023 Marcus Tracey [address] [address] 02/18/2024 Marcus Tracey Assessments Encounter Date Diagnosis [...] Treatment Pending Test Test Name Order Date 29817-JTECVHS NAIL, 6 OR MORE 02/03/2020 30703-PPJORLW NAIL, 6 OR MORE 05/07/2020 23656-JGTBVGF NAIL, 6 OR MORE 08/10/2020 14478-SLHTWBB NAIL, 6 OR MORE 11/26/2020 33835-HZOIIDQ NAIL, 6 OR MORE 03/04/2021 19068-SIXSCPE NAIL, 6 OR MORE 06/07/2021 48351-TBVXFIV NAIL, 6 OR MORE 09/06/2021 38550-HAXAXWS NAIL, 6 OR MORE 01/20/2022 11505-BIELUUG NAIL, 6 OR MORE 06/13/2022 18705-AUDMYKQ NAIL, 6 OR MORE 09/19/2022 32830-RBMVOQZ NAIL, 6 OR MORE 12/26/2022 04431-XBBZMEF NAIL, 6 OR MORE 03/27/2023 85673-TIAWXJU NAIL, 6 OR MORE 06/26/2023 25035-UUSAUEJ NAIL, 6 OR MORE 09/25/2023 84395-MXNWYDH NAIL, 6 OR MORE 05/13/2024 Next Appt Details Provider Name:Marcus Tracey , 08/19/2024 04:00:00 PM, [address] [facility], [place], [address], Insurance Providers Payer Name Payer Address Payer Phone Subscriber Number Group Number Insured Name Patient Relationship to Insured Coverage Start Date Coverage End Date Medicare National Govt Svcs Inc [address] [place] [address] [id number] [place] Gautam Self - patient is the insured Medical (General) History Medical History History ICD Code Anxiety Depression Gout Psychiatric disorder Chicken pox type II diabetes ptsd CAD (Cholesterol) Mild Retardation Surgical History Surgery Date(Month/Year) Hospitalization History Reason Date(Month/Year) [facility] ER sodium too high 12/23
--- OUTSIDE RECORDS SUMMARY | 2024-07-23 17:55 | XMS_ITS ---
Author Organization [facility] Address [address] [place] [address] Care Team Providers Care Jewelry Cutter Name Role Phone Trevor Conley MD Primary Care Provider UnavailMarcus Huber [phone] REASON FOR VISIT Reschedule Encounters Encounter Location Date Provider Diagnosis [address] [address] 02/18/2024 Marcus Tracey Plan Of Treatment Next Appt Details Provider Name:Marcus Tracey , 08/19/2024 04:00:00 PM, [address] [place] [address], [address], Progress Notes * Moises SIMMONSinDOB:1975 ( 48 yo M)Acc No.[id number]:02/18/2024 Patient:?Gautam Simmons :1975???Age:48 Y???Sex:Male Address:[address] , [address] [place], [address] * true * Date:? Generated for Printi ng/Faxing/eTransmitting on:?07/23/2024 05:55 PM EDT
--- OUTSIDE RECORDS SUMMARY | 2024-07-23 17:55 | XMS_ITS ---
Author Organization [facility] Address [address] [place] [address] Care Team Providers Care Cash Analyst Name Role Phone Trevor Conley MD Primary Care Provider Naveen Flores Jr REASON FOR VISIT eliquis note Encounters Encounter Location Date Provider Diagnosis [facility] [address] [place] [address] 05/19/2024 Naveen Yang Jr Plan Of Treatment No Information Progress Notes * FERMIN PEREZ ADOB:1975 (48 yo M)Acc No.[id number]:05/19/2024 Patient:?FERMIN PEREZ :1975???Age:48 Y???Sex:Male Address:[address] [place] [address] * true * Date:? Generated for Luz burris/Danny/eTransmitting on:?07/23/2024 05:55 PM EDT
--- OUTSIDE RECORDS SUMMARY | 2024-07-23 17:55 | XMS_ITS | Clinical Summary ---
Author Organization [employer] Address [address] [place] [address] 7t [place] [address] Care Team Providers Care Director Of Personnel Name Role Phone Unavailable Primary Care Provider Unavailabl e Allergies No known active allergies Medications clindamycin (Cleocin) 150 MG capsule 2 caps one hour prior to dental procedure 4 capsule 4 Active Encounters Date Type Department Care Team Description 07/02/2024 Telephone [facility] [address] [place] [address] Sudhir Weinstein DMD from Last 3 Months [...] Most Recently Relevant to Health Maintenance Insurance DENTAL-[facility] MEDICAID STAND ADULT
--- OUTSIDE RECORDS SUMMARY | 2024-07-23 17:56 | XMS_ITS | Patient Health Record ---
Author Organization [facility] Address [address] [place] [address] Care Team Providers Care Mold Injector Name Role Phone Trevor Conley MD Primary Care Provider Naveen Flores Jr Unavailable [phone] Allergies Allergen (clinical drug ingredient) Drug/Non Drug Allergy documented on EMR Reaction Allergy Type Onset Date Status Penicillin Unknown Drug Allergy Active Results Component Value Reference Range Notes Glucose, Whole Blood Reviewed date:05/23/2024 09:24:07 PM Interpretation: Performing Lab:[facility], [address] [place] [phone] Notes/Report: Glucose, Whole Blood 233 60-115 mg/dL METER # : [id number] Reason For Referral No Information Medications Medication [...] Problem Status W/U Status Risk Notes Problem 038485412 Colon cancer screening (Z12.11) Active confirmed Problem 252869541 care home (curre nt) use of anticoagulants (Z79.01) Active confirmed Problem 357042055 Long-term curren t use of high risk medication other than anticoagulant (Z79.899) Active confirmed Vital Signs Blood pressure diastolic 00 mm Hg 05/01/2024 Height 5 ft 7 in in 05/01/2024 Blood pressure systolic 00 mm Hg 05/01/2024 Weight 171 lbs 05/01/2024 BMI 26.78 kg/m2 05/01/2024 Encounters Encounter Location Date Provider Diagnosis [facility] [address] [place], [place] [phone] 05/23/2024 Naveen Yang Jr Colon cancer screening Z12.11 [facility] [address] [place] [address] 05/01/2024 Naveen Yang Jr Colon cancer screening Z12.11 ; Long-term current use of high risk medication other than anticoagulant Z79.899 and care home (current) use of anticoagulants Z79.01 [facility] [address] [place] [address] 05/14/2024 Naveen Yang Jr [facility] [address] [place] [address] 05/19/2024 Naveen Yang Jr Assessments Encounter Date [...] the night before the prep. 05/01/2024 terminal worker (current) use of anticoagulants (ICD-10 - Z79.01) [...] [place] [address] [address] [id number] FERMIN PEREZ Self - patient is the insured MEDICAID OF [place] [address] [place] [address] [id number] FERMIN PEREZ Self - patient is the insured Medical (General) History Medical History History ICD Code Diabetes mellitus type 2 Pulmonary embolus Schizoaffective disorder bipolar disorder Intellectual disability PTSD Hyperlipidemia Surgical History Surgery Date(Month/Year) Excision of right axillary lesion
--- OUTSIDE RECORDS SUMMARY | 2024-07-23 17:56 | XMS_ITS ---
Author Organization [facility] Address [address] [place] [address] Care Team Providers Care Sea Shell Gatherer Name Role Phone Trevor Conley MD Primary Care Provider Marcus Bonds Unavailable [phone] Encounters Encounter Location Date Provider Diagnosis [facility] [address] [place] [address] 02/19/2024 Marcus Tracey Plan Of Treatment Next Appt Details Provider Name:Marcus Tracey , 08/19/2024 04:00:00 PM, [address] [place] [address], [phone], Progress Notes * ANA MoisesKarenOB:1975 ( 49 yo M)Acc No.[id number]:02/19/2024 Progress Note Patient:?Gautam SIMMONS Provider:?Marcus Tracey DPM :1975???Age:48 Y???Sex:Male Prosper e:02/19/2024 Address:[address] [address] , [address] [place], [place] [phone] Pcp:Trevor Conley MD Subjective: * Chief Complaints: * ??? * Medical History:? Objective: * Vitals:? Assessment: Plan: * Treatment: * Images: * The named appointment provid er may or may not be the originator of this progress note, and it is not deemed complete until electronically signed by the appointment provider. Sign off status: Pending * Provider:?Marcus Tracey DPM Date:?2023 Generated for uLz burris/Danny/Nadine on:?07/23/2024 05:56 PM EDT
--- OUTSIDE RECORDS SUMMARY | 2024-07-23 17:56 | XMS_ITS ---
Author Organization [facility] Address [address] [place] [address] Care Team Providers Care Peer Educator Name Role Phone Trevor Conley MD Primary Care Provider Unavaila Marcus Almanza Unavailable [phone] Allergies Allergen (clinical drug ingredient) Drug/Non Drug [...] Ordered Date Performed Result Body Sit e 75731-BPTZPTF NAIL, 6 OR MORE 05/13/2024 N/A Encounters Encounter Location Date Provider Diagnosis [facility] [address] [address] 05/13/2024 Marcus Blackunier Pain in right toe(s) [...] Treatment Pending Test Test Name Order Date 11457-HJDLGZA NAIL, 6 OR MORE 05/13/2024 Next Appt Details Follow Up: prn, Reason: Provider Name:Marcus Tracey , 08/19/2024 04:00:00 PM, [address] [place] [address], [phone], Procedure Notes * Category Sub-Category Detail [...] use of a nail nipper and/or dremel-type billet grinder, to a more viable healthy nail [...] * Moises SIMMONSinDOB:1975 ( 48 yo M)Acc No.[id number]:05/13/2024 Progress Note Patient:?SIMMONS Gautam Provider:?Marcus Tracey DPM :1975???Age:48 Y???Sex:Male Prosper e:05/13/2024 Address:[address] , [address] [facility], [place] Pcp:Trevor Conley MD Subjective: * Chief Complaints: [...] History * Hospitalization/Major Diagno stic Procedure:?[facility] ER sodium too high 01/15/2020 * [...] use of a nail nipper and/or dremel-type billet grinder, to a more viable healthy nail [...] to maintain effectiveness in symptomatic relief - 560[address].? * Procedure Codes:?10689 DEBRI DE NAIL, 6 OR [id number] Pall serv during david * Preventive Medicine:? [...] Tracey DPM Date:?2024 Generated for Luz burris/Danny/Nadine on:?07/23/2024 05:55 PM EDT History and Physical Notes * [...]
--- OUTSIDE RECORDS SUMMARY | 2024-07-23 17:56 | XMS_ITS | Encounter Summary ---
Author Organization [facility] Address [address] [facility] 7t [place] [address] Care Team Providers Care Dye Room Helper Name Role Phone Unavailable Primary Care Provider [...]
--- OUTSIDE RECORDS SUMMARY | 2024-07-23 17:56 | XMS_ITS ---
Author Organization [facility] Address [address] [place] [address] Care Team Providers Care Freelance Court Reporter Name Role Phone Trevor Conley MD Primary Care Provider Naveen Flores Jr [phone] REASON FOR VISIT screening Encounters Encounter Location Date Provider Diagnosis [facility] [address] [place] [phone] 05/23/2024 Naveen Yang Jr Colon cancer screening Z12.11 Assessments Encounter Date Diagnosis (ICD Code) Assessment Notes Treatment Notes Treatment Clinical Notes Section Notes 05/23/2024 Colon cancer screening (ICD-10 - Z12.11) Plan Of Treatment No Information Progress Notes * ANA FERMIN ADOB:1975 (49 yo M)Acc No.[id number]:05/23/2024 COLON WITH MAC Patient:?SAM PEREZIN Dimitrios Provider:?Naveen Yang MD :1975???Age:48 Y???Sex:Male Prosper e:05/23/2024 Address:[address] [place], [place] [phone] Pcp:Trevor Conley MD Subjective: * Chief Complaints: * ???1. Screening. * Medical History:? Objective: * Vitals:? Assessment: * Assessment: 1.?Colon cancer screening - Z12.11 (Primary)??? Plan: * Treatment: * Procedure Codes:?61376 DIAGN OSTIC COLONOSCOPY, 0528F RCMND FLW-UP 10 YRS DOCD * * The named appointment provid er may or may not be the originator of this progress note, and it is not deemed complete until electronically signed by the appointment provider. Sign off status: Pending * Provider:?Naveen Yang MD Date:?0 05/23/2024 Generated for Luz burris/Danny/Nadine on:?07/23/2024 05:55 PM EDT
--- OUTSIDE RECORDS SUMMARY | 2024-07-23 17:56 | XMS_ITS ---
Author Organization [facility] Address [address] [place] [address] Care Team Providers Care Staff Pharmacist Name Role Phone Trevor Conley MD Primary Care Provider Naveen Flores Jr REASON FOR VISIT nurse order Encounters Encounter Location Date Provider Diagnosis [facility] [address] [place] [address] 05/14/2024 Naveen Yang Jr Plan Of Treatment No Information Progress Notes * FERMIN PEREZ ADOB:1975 (48 yo M)Acc No.[id number]:05/14/2024 Patient:?FERMIN PEREZ :1975???Age:48 Y???Sex:Male Address:[address] [place] [address] * true * Date:? Generated for Luz burris/Danny/eTransmitting on:?07/23/2024 05:56 PM EDT
== END 2024-07-23 16:47 | disposition home or self-care (01) ==
LOC: HO.ENCR 15:56
PROVIDERS: PCP Internal Medicine; Visit Provider Registered Nurse Diabetes Educator
DX: E11.9 Type 2 diabetes mellitus without complications (principal); Z79.4 Long term (current) use of insulin

== ENCOUNTER → 2024-07-23 15:55 | Outpatient (BNVA) | payer MEDICARE, MEDICAID, SELFPAY | PROVIDERS: PCP Internal Medicine; Visit Provider Registered Nurse Diabetes Educator | DX: E11.9 Type 2 diabetes mellitus without complications (principal); Z79.4 Long term (current) use of insulin | CPT/HCPCS: 99211 ==

== ENCOUNTER 2024-07-31 12:49 | Outpatient (AMB) | payer MEDICARE, MEDICAID, SELFPAY ==
--- NOTE | 2024-07-31 08:50 | A.OFFVIS_ITS ---
Vital Signs 07/31/24 12:53 Height 5 ft 7 in Weight 165 lb 5.547 oz BMI 25.9 BP 136/86 Blood Pressure Location Rt brachial Position Sitting Pulse 121 H Pulse Source Pulse Oximeter Pulse Oximetry (%) 98 Oxygen Delivery Method Room Air Intake Visit Reasons: T2DM Intake Note: Patient presents today to establish treatment for Type 2 Diabetes Mellitus: Last Diabetic eye exam was on: Within the year, next november Last Podiatry exam was on: Patient does not see a [employer] Associate Most recent HbA1c: 9.9%, 07/08/2024 Random Glucose- 229 mg/dL, Today Bench Worker Hollow Handle Required: No Accompanied by: Mother Allergies Penicillins [PENICILLINS] Allergy (Unknown, Verified 07/14/24 20:55) Unknown HPI Comments Details: 49 YO male who is seen in f/u for diabetes. He was seen as an initial consult 07/03/2024 and had multiple ER visits for elevated glucose and positive ketones. He has had several insulin adjustments in his now doing much better. He was hospitalized in [facility] with a glucose of 600 2023 and 2024 and was started on basal bolus insulin. hemoglobin A1c 07/03/2024 9.9%, 03/17/2024 7.4%. Prior to that time his A1c was in the 10% range. MUNIR negative 07/06/23is diabetes care is complicated by schizoaffective disorder, PTSD and learning disability. He has a caregiver and mother is involved in his care. He does go to a day program which was given orders for insulin administration at each visit. [facility] fax [phone] telephone [phone] Initially diagnosed with T2DM approximately 2013 Was initially started on treatment with metformin and Jardiance Current regimen Lantus 44 units ( had been prescribed at 36 units but care give her has been giving 42 Novolog per scale tid with meals 80-150 4 units 151-200 6 units Freestyle wayne sensor 3 average glucose: 165 14 day continuous glucose sensor report reviewed Glucose Management indicator 7.3 % TIme in ranges: Eleven % very high (above 250) 25 % high (181-250) 62 % in range (70-180] 2 % low (69-55) 0 % very low (below 54) 39.3 Glucose variability (target <36%) Interpretation of CGMS [slight low overnight ] Reports low sugars none Family history of T2DM on father's side Has eyes checked yearly, last eye exam 11/2023, retinopathy. Denies neuropathy Had CJ recent hosp stay Has HLD, on statin Denies chest pain, dyspnea or symptoms of claudication. He does report he is more active in the warm weather [facility] Medical History Insulin dependent type 2 diabetes mellitus Gout Hyperlipidemia Intellectual disability Bipolar 1 disorder Saddle pulmonary embolus Diabetes insipidus High cholesterol Anxiety PTSD (post-traumatic stress disorder) Schizo affective schizophrenia Surgical History Hx of tooth extraction Hx of excision of mass Family History Mother Fibromyalgia Post traumatic stress disorder (PTSD) Anxiety Osteopenia High cholesterol Anemia Cerebellar ataxia Social History Household Members: Other Housing: Other Housing Other:: [facility]/Assisted living Alcohol intake: never Patient Tobacco Use Status: Never used Tobacco Advance Directives Date on File: 04/20/21 service: No Current occupational status: disabled Cognitive needs: Yes Hearing needs: No Vision needs: No Physical Exam Vital Signs: Last Vital Signs Pulse 121 H 07/31/24 12:53 BP 136/86 07/31/24 12:53 Pulse Ox 98 07/31/24 12:53 Oxygen Delivery Method Room Air 07/31/24 12:53 BMI result Body Mass Index 25.9 Const Other: Absence of Cushingoid features. Absence of acromegalic features. Neck exam reveals nl size thyroid about 15 gms. No thyroid nodules palpable. Heart S1 S2, Reg R/R. No M/R G. Skin exam reveals absence of vitiligo or acanthosis nigricans. Cooperative. Answers all questions. Visual exam of foot performed. No ulcerations or open lesions. No inter digit maceration or fissuring. No onychomycosis, no callouses. Sensation intact to monofilament exam. Vibratory sensation is normal with 128 Hz tuning fork. Results Reviewed Results Reviewed: Laboratory Last Values Glucose (Clinic) 229 mg/dL (60-115) H 07/31/24 13:05 Assessment & Plan Assessment & Plan (1) Insulin dependent type 2 diabetes mellitus: Code(s): E11.9 - Type 2 diabetes mellitus without complications; Z79.4 - intermediate (current) use of insulin Category: Medical Plan: 49-year-old type 2 diabetic with recent CJ, retinopathy whose care is complicated by schizoaffective disorder, PTSD and learning disability. New dosing: Lantus 42 units Novolog tid with meals (orders sent to [facility] for lunch administration) breakfast and supper 80-100 6 units 101-150 8 units 151-200 10 units 201-250 12 units 251-300 14 units 301-350 16 units over 350 18 units Over 350 dip urine for ketones: if positive go to ER lunch 80-100 4 units 101-150 4 units 151-200 8 units 201-250 10 units 251-300 12 units 301-350 14 units over 350 16 units same ketone protocol HIs mother will bring him in for labs to determine type of diabetes. Patient will follow up with me for diabetes mellitus. The patient's mother had an opportunity to ask questions regarding treatment plan. The patient expressed understanding and agreement with the above treatment plan. The patient's mother is aware they should contact our office by phone for worsening glucose readings or for any low blood sugars which may warrant a change in diabetes medication. Compliance is encouraged with medications and any followup testing/consults which may have been ordered. Coding Level of Care Code Est Pt Level 4 (17536) Diagnoses Insulin dependent type 2 diabetes mellitus E11.9; Z79.4 Time Spent (min) 30 Comment Time spent reviewing labs/provider notes, face to face, chart doc
[2024-07-31 12:53] VITALS: BP 136/86; PULSE 121; O2SAT 98; BMI 25.9
[2024-07-31 13:09] LABS: Glucose, Whole Blood 229 mg/dL (60-115)
--- OUTSIDE RECORDS SUMMARY | 2024-07-31 15:22 | XMS_ITS ---
Author Organization [facility] Address [address] [place] [address] Care Team Providers Care Tube Draw Helper Name Role Phone Trevor Conley MD Primary Care Provider Unavaila Marcus Almanza Unavailable [phone] Allergies Allergen (clinical drug ingredient) Drug/Non Drug [...] Ordered Date Performed Result Body Sit e 63832-BDSCOZO NAIL, 6 OR MORE 05/13/2024 N/A Encounters Encounter Location Date Provider Diagnosis [facility] [address] [address] 05/13/2024 Marcus Blackunier Pain in right toe(s) [...] Treatment Pending Test Test Name Order Date 53958-RLWKNSE NAIL, 6 OR MORE 05/13/2024 Next Appt Details Follow Up: prn, Reason: Provider Name:Marcus Tracey , 08/19/2024 04:00:00 PM, [address] [place] [address], [phone], Procedure Notes * Category Sub-Category Detail [...] use of a nail nipper and/or dremel-type fiberglass grinder, to a more viable healthy nail [...] * Moises SIMMONSinDOB:1975 ( 48 yo M)Acc No.[id number]:05/13/2024 Progress Note Patient:?[place] Gautam Provider:?Marcus Tracey DPM :1975???Age:48 Y???Sex:Male Prosper e:05/13/2024 Address:[address] , [address] [facility], [place], [place] Pcp:Trevor Conley MD Subjective: * Chief Complaints: [...] segura Surgical History * Hospitalization/Major Diagno stic Procedure:?[facility] ER sodium too high 01/15/2020 * Family [...] use of a nail nipper and/or dremel-type fiberglass grinder, to a more viable healthy nail [...] to maintain effectiveness in symptomatic relief - 01854.? * Procedure Codes:?60322 DEBRI DE NAIL, 6 OR [id number] Pall serv during david * Preventive Medicine:? [...] Tracey DPM Date:?2024 Generated for Luz burris/Danny/Nadine on:?07/31/2024 03:22 PM EDT History and Physical Notes * [...]
--- OUTSIDE RECORDS SUMMARY | 2024-07-31 15:22 | XMS_ITS | Clinical Summary ---
Author Organization [employer] Address [address] [place] [address] 7t [place] [address] Care Team Providers Care Tong Setter Name Role Phone Unavailable Primary Care Provider Unavailabl e Allergies No known active allergies Medications clindamycin (Cleocin) 150 MG capsule 2 caps one hour prior to dental procedure 4 capsule 4 Active Encounters Date Type Department Care Team Description 07/02/2024 Telephone [facility] [address] [place] [address] Sudhir Weinstein DMD from Last 3 Months [...] Most Recently Relevant to Health Maintenance Insurance [facility] MEDICAID STAND ADULT
--- OUTSIDE RECORDS SUMMARY | 2024-07-31 15:22 | XMS_ITS ---
Author Organization [facility] Address [address] [place] [address] Care Team Providers Care Pack Out Operator Name Role Phone Trevor Conley MD Primary Care Provider Marcus Bonds Unavailable [phone] Encounters Encounter Location Date Provider Diagnosis [facility] [address] [place] [address] 02/19/2024 Marcus Tracey Plan Of Treatment Next Appt Details Provider Name:Marcus Tracey , 08/19/2024 04:00:00 PM, [address] [place] [address], [phone], Progress Notes * ANA MoisesKarenOB:1975 ( 49 yo M)Acc No.[id number]:02/19/2024 Progress Note Patient:?Gautam SIMMONS Provider:?Marcus Tracey DPM :1975???Age:48 Y???Sex:Male Prosper e:02/19/2024 Address:[address] , [address] [place], [place] [phone] Pcp:Trevor Conley MD Subjective: * Chief Complaints: [...] Tracey DPM Date:?2023 Generated for Luz burris/Danny/Nadine on:?07/31/2024 03:22 PM EDT
--- OUTSIDE RECORDS SUMMARY | 2024-07-31 15:22 | XMS_ITS ---
Author Organization [facility] Address [address] [place] [address] Care Team Providers Care Manager Protein Name Role Phone Trevor Conley MD Primary Care Provider UnavailMarcus Huber [phone] REASON FOR VISIT Reschedule Encounters Encounter Location Date Provider Diagnosis [address] [address] 02/18/2024 Marcus Tracey Plan Of Treatment Next Appt Details Provider Name:Marcus Tracey , 08/19/2024 04:00:00 PM, [address] [place] [address], [phone], Progress Notes * Moises SIMMONSinDOB:1975 ( 48 yo M)Acc No.[id number]:02/18/2024 Patient:?Gautam [place] :1975???Age:48 Y???Sex:Male Address:[address] , [address] [place], [address] * true * Date:? Generated for Printi ng/Faxing/eTransmitting on:?07/31/2024 03:22 PM EDT
--- OUTSIDE RECORDS SUMMARY | 2024-07-31 15:22 | XMS_ITS ---
Author Organization [facility] Address [address] [place] [address] Care Team Providers Care Supervisor Of Research Name Role Phone Trevor Conley MD Primary Care Provider Naveen Flores Jr REASON FOR VISIT eliquis note Encounters Encounter Location Date Provider Diagnosis [facility] [address] [place] [address] 05/19/2024 Naveen Yang Jr Plan Of Treatment No Information Progress Notes * FERMIN PEREZ ADOB:1975 (48 yo M)Acc No.[id number]:05/19/2024 Patient:?FERMIN PEREZ :1975???Age:48 Y???Sex:Male Address:[address] [place] [address] * true * Date:? Generated for Luz burris/Danny/eTransmitting on:?07/31/2024 03:21 PM EDT
--- OUTSIDE RECORDS SUMMARY | 2024-07-31 15:22 | XMS_ITS | Patient Health Record ---
Author Organization [facility] Address [address] [place] [address] Care Team Providers Care Mortgage Loan Specialist Name Role Phone Trevor Conley MD Primary Care Provider Marcus Bonds Unavailable [phone] Allergies Allergen (clinical drug ingredient) Drug/Non Drug [...] Problem Acquired hammer toe of right foot (01553467499402 05) Other hammer toe(s) (acquired), right foot (M20.41) Active confirmed Response to treatment,I mprovement Problem Acquired hammer toe of left foot (25312955481392 03) Other hammer toe(s) (acquired), left foot (M20.42) Active confirmed Response to treatment,I mprovement Problem Type 2 diabetes mellitus without complication (026247936) Type 2 diabetes mellitus without complication (E11.9) Active confirmed Vital Signs Blood pressure diastolic 70 mm Hg 05/13/2024 Height 5ft 6in in 05/13/2024 Blood pressure systolic 118 mm Hg 05/13/2024 Weight 166 lbs 05/13/2024 BMI 26.79 kg/m2 05/13/2024 Procedures Procedure Date Ordered Date Performed Result Body Sit e 58452-FSMSIBG NAIL, 6 OR MORE 09/25/2023 N/A 63188-SYMEVXC NAIL, 6 OR MORE 05/13/2024 N/A Encounters Encounter Location Date Provider Diagnosis [facility] [address] [place] [address] 09/25/2023 Marcusblaze Tracey Pain in right toe(s) M79.674 ; Tinea unguium B35.1 ; Pain in left toe(s) M79.675 ; Type 2 diabetes mellitus without complication E11.9 ; Xerosis of skin L85.3 ; Other hammer toe(s) (acquired), left foot M20.42 and Other hammer toe(s) (acquired), right foot M20.[address] [address] 05/13/2024 Marcus Tracey Pain in right toe(s) M79.674 ; Tinea unguium B35.1 ; Pain in left toe(s) M79.675 ; Type 2 diabetes mellitus without complication E11.9 ; Other hammer toe(s) (acquired), right foot M20.41 and Other hammer toe(s) (acquired), left foot M20.[address] [address] 12/25/2023 Marcus Tracey [address] [address] 02/18/2024 Marcus Tracey Assessments Encounter Date Diagnosis [...] Treatment Pending Test Test Name Order Date 17896-WANKSOX NAIL, 6 OR MORE 02/03/2020 96165-VAOCNCB NAIL, 6 OR MORE 05/07/2020 70381-TJYNMGH NAIL, 6 OR MORE 08/10/2020 08886-YSVSBZA NAIL, 6 OR MORE 11/26/2020 22983-WHMWVPC NAIL, 6 OR MORE 03/04/2021 59977-BJAULYN NAIL, 6 OR MORE 06/07/2021 96338-FDQOCOZ NAIL, 6 OR MORE 09/06/2021 00790-JFHSPEY NAIL, 6 OR MORE 01/20/2022 82482-TJXQDQQ NAIL, 6 OR MORE 06/13/2022 14024-UULBVUJ NAIL, 6 OR MORE 09/19/2022 85844-ZCBWLLG NAIL, 6 OR MORE 12/26/2022 46131-NUIGKXT NAIL, 6 OR MORE 03/27/2023 24790-JGFFZNU NAIL, 6 OR MORE 06/26/2023 06278-HQHFHAZ NAIL, 6 OR MORE 09/25/2023 91133-HIIVDPS NAIL, 6 OR MORE 05/13/2024 Next Appt Details Provider Name:Marcus Tracey , 08/19/2024 04:00:00 PM, [address] [facility], [place], [address], Insurance Providers Payer Name Payer Address Payer Phone Subscriber Number Group Number Insured Name Patient Relationship to Insured Coverage Start Date Coverage End Date Medicare National [employer] [address] [place] [address] [id number] Troy Gautam Self - patient is the insured Medical (General) History Medical History History ICD Code Anxiety Depression Gout Psychiatric disorder Chicken pox type II diabetes ptsd CAD (Cholesterol) Mild Retardation Surgical History Surgery Date(Month/Year) Hospitalization History Reason Date(Month/Year) [facility] ER sodium too high 12/23
--- OUTSIDE RECORDS SUMMARY | 2024-07-31 15:22 | XMS_ITS ---
Author Organization [facility] Address [address] [place] [address] Care Team Providers Care Survey Instrument Operator Name Role Phone Trevor Conley MD Primary Care Provider Naveen Flores Jr REASON FOR VISIT screening Encounters Encounter Location Date Provider Diagnosis [facility] [address] [place] [phone] 05/23/2024 Naveen Yang Jr Colon cancer screening Z12.11 Assessments Encounter Date Diagnosis (ICD Code) Assessment Notes Treatment Notes Treatment Clinical Notes Section Notes 05/23/2024 Colon cancer screening (ICD-10 - Z12.11) Plan Of Treatment No Information Progress Notes * ANA FERMIN ADOB:1975 (49 yo M)Acc No.[id number]:05/23/2024 COLON WITH MAC Patient:?SAM PEREZIN Dimitrios Provider:?Naveen Yang MD :1975???Age:48 Y???Sex:Male Prosper e:05/23/2024 Address:[address] [place], [place] [id number] Pcp:Trevor Conley MD Subjective: * Chief Complaints: * ???1. Screening. * Medical History:? Objective: * Vitals:? Assessment: * Assessment: 1.?Colon cancer screening - Z12.11 (Primary)??? Plan: * Treatment: * Procedure Codes:?45967 DIAGN OSTIC COLONOSCOPY, 0528F RCMND FLW-UP 10 YRS DOCD * * The named appointment provid er may or may not be the originator of this progress note, and it is not deemed complete until electronically signed by the appointment provider. Sign off status: Pending * Provider:?Naveen Yang MD Date:?0 05/23/2024 Generated for Luz burris/Danny/Nadine on:?07/31/2024 03:22 PM EDT
--- OUTSIDE RECORDS SUMMARY | 2024-07-31 15:23 | XMS_ITS | Encounter Summary ---
Author Organization [facility] [employer] Address [address] [facility] 7t [place] [address] Care Team Providers Care Remedial Masseur Name Role Phone Unavailable Primary Care Provider [...]
--- OUTSIDE RECORDS SUMMARY | 2024-07-31 15:23 | XMS_ITS | Patient Health Record ---
Author Organization [facility] Address [address] [place] [address] Care Team Providers Care Branch Rental Manager Name Role Phone Trevor Conley MD Primary Care Provider Naveen Flores Jr Unavailable Allergies Allergen (clinical drug ingredient) Drug/Non Drug Allergy documented on EMR Reaction Allergy Type Onset Date Status Penicillin Unknown Drug Allergy Active Results Component Value Reference Range Notes Glucose, Whole Blood Reviewed date:05/23/2024 09:24:07 PM Interpretation: Performing Lab:[facility], [address] [place] [phone] Notes/Report: Glucose, Whole Blood 233 60-115 mg/dL METER # : [id number] Reason For Referral No Information Medications Medication [...] Problem Status W/U Status Risk Notes Problem 683494997 Colon cancer screening (Z12.11) Active confirmed Problem 086384227 halfway (curre nt) use of anticoagulants (Z79.01) Active confirmed Problem 275194437 Long-term curren t use of high risk medication other than anticoagulant (Z79.899) Active confirmed Vital Signs Blood pressure diastolic 00 mm Hg 05/01/2024 Height 5 ft 7 in in 05/01/2024 Blood pressure systolic 00 mm Hg 05/01/2024 Weight 171 lbs 05/01/2024 BMI 26.78 kg/m2 05/01/2024 Encounters Encounter Location Date Provider Diagnosis [facility] Out[facility] [address] [place], [place] [phone] 05/23/2024 Naveen Yang Jr Colon cancer screening Z12.11 [facility] [address] [place] [address] 05/01/2024 Naveen Yang Jr Colon cancer screening Z12.11 ; Long-term current use of high risk medication other than anticoagulant Z79.899 and halfway (current) use of anticoagulants Z79.01 [facility] [address] [place] [address] 05/14/2024 Naveen Yang Jr [facility] [address] [place] [address] 05/19/2024 Naveen Yang Jr Assessments Encounter Date [...] insulin the night before the prep. 05/01/2024 long term care phlebotomist (current) use of anticoagulants (ICD-10 - Z79.01) [...] [place] [address] [address] [id number] FERMIN PEREZ Self - patient is the insured MEDICAID OF [employer] [address] [place] [address] [phone] [id number] FERMIN PEREZ Self - patient is the insured Medical (General) History Medical History History ICD Code Diabetes mellitus type 2 Pulmonary embolus Schizoaffective disorder bipolar disorder Intellectual disability PTSD Hyperlipidemia Surgical History Surgery Date(Month/Year) Excision of right axillary lesion
--- OUTSIDE RECORDS SUMMARY | 2024-07-31 15:23 | XMS_ITS ---
Author Organization [facility] Address [address] [place] [address] Care Team Providers Care Ceramic Research Engineer Name Role Phone Trevor Conley MD Primary Care Provider Naveen Flores Jr REASON FOR VISIT nurse order Encounters Encounter Location Date Provider Diagnosis [facility] [address] [place] [address] 05/14/2024 Naveen Yang Jr Plan Of Treatment No Information Progress Notes * FERMIN PEREZ ADOB:1975 (48 yo M)Acc No.[id number]:05/14/2024 Patient:?FERMIN PEREZ :1975???Age:48 Y???Sex:Male Address:[address] [place] [address] * true * Date:? Generated for Luz burris/Danny/eTransmitting on:?07/31/2024 03:22 PM EDT
== END 2024-07-31 14:26 | disposition home or self-care (01) ==
LOC: HO.ENCR 12:50
PROVIDERS: PCP Internal Medicine; Visit Provider Nurse Practitioner Adult Health
DX: E11.9 Type 2 diabetes mellitus without complications (principal); Z79.4 Long term (current) use of insulin
CPT/HCPCS: 99214

== ENCOUNTER 2024-07-31 12:49 | Outpatient (REF) | payer MEDICARE, MEDICAID, SELFPAY ==
[2024-07-31 16:05] LABS: MANUAL DIFF FLAG NO
[2024-07-31 17:12] LABS: Basophils Absolute Auto 0.1 X10*3/uL (0.0-0.2); Basophils Percent Auto 0.7 % (0-2); Eosinophils Absolute Auto 0.7 X10*3/uL (0.0-0.4); Hematocrit 43.1 % (42.0-52.0); Hemoglobin 14.5 g/dl (14.0-18.0); Imm Gran Abs Auto 0.02 X10*3/uL (0.00-0.03); Imm Gran Pct Auto 0.2 % (0.0-0.4); Lymphocytes Absolute Auto 2.7 X10*3/uL (1.2-4.9); Lymphocytes Percent Auto 27.9 % (20-40); Mean Corpuscular HGB Conc 33.6 g/dl (31.0-36.0); Mean Corpuscular Hemoglobin 28.9 pg (27.0-33.0); Mean Platelet Volume 11.1 fL (9.4-12.4); Monocytes Absolute Auto 0.6 X10*3/uL (0.1-1.2); Monocytes Percent Auto 5.9 % (2-11); Neutrophils Absolute Auto 5.7 x10*3/uL (2.0-8.3); Neutrophils Percent Auto 58.3 % (45-73); Platelet Count 219 X10*3/uL (160-400); Red Blood Count 5.01 X10*6/uL (4.60-5.80); Red Cell Distribution Width 13.9 % (11.0-16.0); White Blood Count 9.8 X10*3/uL (4.8-10.8)
--- OUTSIDE RECORDS SUMMARY | 2024-07-31 17:47 | XMS_ITS | Clinical Summary ---
Author Organization [employer] Address [address] [place] [address] 7t [place] [address] Care Team Providers Care Sound Ranging Crewmember Name Role Phone Unavailable Primary Care Provider Unavailabl e Allergies No known active allergies Medications clindamycin (Cleocin) 150 MG capsule 2 caps one hour prior to dental procedure 4 capsule 4 Active Encounters Date Type Department Care Team Description 07/02/2024 Telephone [facility] [address] [place] [address] Sudhir Weinstein DMD from Last 3 Months [...] Most Recently Relevant to Health Maintenance Insurance [facility] MEDICAID STAND ADULT
--- OUTSIDE RECORDS SUMMARY | 2024-07-31 17:47 | XMS_ITS | Encounter Summary ---
Author Organization [facility] [employer] [facility] [employer] Address [address] [facility] 7t [place] [address] Care Team Providers Care Notching Machine Operator Name Role Phone Unavailable Primary [...]
== END 2024-07-31 12:50 | disposition home or self-care (01) ==
LOC: HO.LABR 12:49
PROVIDERS: Absent Provider Psychiatry & Neurology Psychiatry; PCP Internal Medicine; Visit Provider Nurse Practitioner Adult Health
DX: Z79.899 Other long term (current) drug therapy (principal); E11.9 Type 2 diabetes mellitus without complications; Z79.4 Long term (current) use of insulin
CPT/HCPCS: 36415; 82947; 85025; 99212

== ENCOUNTER 2024-08-03 18:44 | Inpatient (IN) | payer MEDICARE, MEDICAID, SELFPAY ==
--- NOTE | ~2024-08-03 | CT_ITS ---
CLINICAL HISTORY: AMS CT head without contrast Comparison: None Findings: No intra-axial mass, midline shift, hydrocephalus, or acute hemorrhage. Intracranial atherosclerosis. There is no sinus or mastoid fluid. The orbits are unremarkable. No skull fracture. IMPRESSION: 1. No acute intracranial findings. This document has been electronically signed by: Sam Castaneda MD on 08/04/2024 00:54:21
[2024-08-03 18:58] VITALS: BP 168/101; PULSE 87; O2SAT 96
[2024-08-03 19:05] VITALS: BP 164/93; PULSE 84; RESP 16; TEMP 37.1; O2SAT 95; BMI 26.5
[2024-08-03 19:14] LABS: MANUAL DIFF FLAG NO
[2024-08-03 19:19] LABS: Basophils Absolute Auto 0.1 X10*3/uL (0.0-0.2); Basophils Percent Auto 0.7 % (0-2); Eosinophils Absolute Auto 0.2 X10*3/uL (0.0-0.4); Eosinophils Percent Auto 1.5 % (0-4); Hematocrit 38.5 % (42.0-52.0); Hemoglobin 13.2 g/dl (14.0-18.0); Imm Gran Abs Auto 0.05 X10*3/uL (0.00-0.03); Imm Gran Pct Auto 0.5 % (0.0-0.4); Lymphocytes Absolute Auto 1.3 X10*3/uL (1.2-4.9); Lymphocytes Percent Auto 12.4 % (20-40); Mean Corpuscular HGB Conc 34.3 g/dl (31.0-36.0); Mean Corpuscular Hemoglobin 29.2 pg (27.0-33.0); Mean Corpuscular Volume 85.2 fL (80.0-98.0); Mean Platelet Volume 10.5 fL (9.4-12.4); Monocytes Absolute Auto 0.4 X10*3/uL (0.1-1.2); Monocytes Percent Auto 4.1 % (2-11); Neutrophils Absolute Auto 8.1 x10*3/uL (2.0-8.3); Neutrophils Percent Auto 80.8 % (45-73); Platelet Count 190 X10*3/uL (160-400); Red Blood Count 4.52 X10*6/uL (4.60-5.80); Red Cell Distribution Width 13.5 % (11.0-16.0); White Blood Count 10.1 X10*3/uL (4.8-10.8)
--- OUTSIDE RECORDS SUMMARY | 2024-08-03 19:25 | XMS_ITS | Patient Health Record ---
Author Organization [facility] Address [address] [place] [address] Care Team Providers Care Special Assemblies Supervisor Name Role Phone Trevor Conley MD Primary Care Provider Marcus Bonds Unavailable [phone] Allergies Allergen (clinical drug ingredient) Drug/Non Drug [...] Problem Acquired hammer toe of right foot (92419222724725 05) Other hammer toe(s) (acquired), right foot (M20.41) Active confirmed Response to treatment,I mprovement Problem Acquired hammer toe of left foot (03614549096112 03) Other hammer toe(s) (acquired), left foot (M20.42) Active confirmed Response to treatment,I mprovement Problem Type 2 diabetes mellitus without complication (723726299) Type 2 diabetes mellitus without complication (E11.9) Active confirmed Vital Signs Blood pressure diastolic 70 mm Hg 05/13/2024 Height 5ft 6in in 05/13/2024 Blood pressure systolic 118 mm Hg 05/13/2024 Weight 166 lbs 05/13/2024 BMI 26.79 kg/m2 05/13/2024 Procedures Procedure Date Ordered Date Performed Result Body Sit e 71452-ZQQSZHE NAIL, 6 OR MORE 09/25/2023 N/A 55748-JDVJQPF NAIL, 6 OR MORE 05/13/2024 N/A Encounters Encounter Location Date Provider Diagnosis [facility] [address] [place] [address] 09/25/2023 Marcusblaze Tracey Pain in right toe(s) M79.674 ; Tinea unguium B35.1 ; Pain in left toe(s) M79.675 ; Type 2 diabetes mellitus without complication E11.9 ; Xerosis of skin L85.3 ; Other hammer toe(s) (acquired), left foot M20.42 and Other hammer toe(s) (acquired), right foot M20.[address] [address] 05/13/2024 Marcus Tracey Pain in right toe(s) M79.674 ; Tinea unguium B35.1 ; Pain in left toe(s) M79.675 ; Type 2 diabetes mellitus without complication E11.9 ; Other hammer toe(s) (acquired), right foot M20.41 and Other hammer toe(s) (acquired), left foot M20.[address] [address] 12/25/2023 Marcus Tracey [address] [address] 02/18/2024 Marcus Tracey Assessments Encounter Date Diagnosis [...] Treatment Pending Test Test Name Order Date 69186-MRNMZUN NAIL, 6 OR MORE 02/03/2020 12823-JBEZRIS NAIL, 6 OR MORE 05/07/2020 25780-SEUTHTJ NAIL, 6 OR MORE 08/10/2020 02158-JXDMKQR NAIL, 6 OR MORE 11/26/2020 52553-CKGEBDF NAIL, 6 OR MORE 03/04/2021 04777-NLLHBAT NAIL, 6 OR MORE 06/07/2021 81540-ECHOFCS NAIL, 6 OR MORE 09/06/2021 97794-XBOCKOU NAIL, 6 OR MORE 01/20/2022 29923-NZMEFBO NAIL, 6 OR MORE 06/13/2022 94793-UVGJULJ NAIL, 6 OR MORE 09/19/2022 75989-PLDZUGZ NAIL, 6 OR MORE 12/26/2022 80894-HEOGRNY NAIL, 6 OR MORE 03/27/2023 63081-UVNPSZM NAIL, 6 OR MORE 06/26/2023 57803-WXEBTQW NAIL, 6 OR MORE 09/25/2023 25848-NYVSODM NAIL, 6 OR MORE 05/13/2024 Next Appt Details Provider Name:Marcus Tracey , 08/19/2024 04:00:00 PM, [address] [facility], [place], [address], Insurance Providers Payer Name Payer Address Payer Phone Subscriber Number Group Number Insured Name Patient Relationship to Insured Coverage Start Date Coverage End Date Medicare National [employer] [address] [facility] [place] [address] [id number] Troy Gautam Self - patient is the insured Medical (General) History Medical History History ICD Code Anxiety Depression Gout Psychiatric disorder Chicken pox type II diabetes ptsd CAD (Cholesterol) Mild Retardation Surgical History Surgery Date(Month/Year) Hospitalization History Reason Date(Month/Year) [facility] ER sodium too high 12/23
--- OUTSIDE RECORDS SUMMARY | 2024-08-03 19:25 | XMS_ITS ---
Author Organization [facility] Address [address] [place] [address] Care Team Providers Care Box Truck Owner Operator Name Role Phone Trevor Conley MD Primary Care Provider Unavaila Marcus Almanza Unavailable [phone] Allergies Allergen (clinical drug ingredient) Drug/Non Drug [...] Ordered Date Performed Result Body Sit e 14621-LNTMUHO NAIL, 6 OR MORE 05/13/2024 N/A Encounters Encounter Location Date Provider Diagnosis [facility] [address] [address] 05/13/2024 Marcus Blackunier Pain in right toe(s) [...] Treatment Pending Test Test Name Order Date 19436-WBACEOC NAIL, 6 OR MORE 05/13/2024 Next Appt Details Follow Up: prn, Reason: Provider Name:Marcus Tracey , 08/19/2024 04:00:00 PM, [address] [place] [address], [phone], Procedure Notes * Category Sub-Category Detail [...] use of a nail nipper and/or dremel-type horseradish grinder, to a more viable healthy nail [...] * Moises SIMMONSinDOB:1975 ( 48 yo M)Acc No.[id number]:05/13/2024 Progress Note Patient:?SIMMONS Gautam Provider:?Marcus Tracey DPM :1975???Age:48 Y???Sex:Male Prosper e:05/13/2024 Address:[address] , [address] [facility], [place], [place] Pcp:Trevor Conley MD Subjective: * Chief Complaints: [...] segura Surgical History * Hospitalization/Major Diagno stic Procedure:?[facility] ER sodium too high 01/15/2020 * [...] use of a nail nipper and/or dremel-type horseradish grinder, to a more viable healthy nail [...] to maintain effectiveness in symptomatic relief - 12492.? * Procedure Codes:?11944 DEBRI DE NAIL, 6 OR [id number] Pall serv during david * Preventive Medicine:? [...] Tracey DPM Date:?2024 Generated for Luz burris/Danny/Nadine on:?08/03/2024 07:25 PM EDT History and Physical Notes * [...]
--- OUTSIDE RECORDS SUMMARY | 2024-08-03 19:25 | XMS_ITS | Encounter Summary ---
Author Organization [facility] [employer] Address [address] [facility] 7t [place] [address] Care Team Providers Care Automatic Die Cutting Machine Operator Name Role Phone Unavailable Primary [...]
--- OUTSIDE RECORDS SUMMARY | 2024-08-03 19:25 | XMS_ITS | Patient Health Record ---
Author Organization [facility] Address [address] [place] [address] Care Team Providers Care Repair Tech Name Role Phone Trevor Conley MD Primary Care Provider Naveen Flores Jr Unavailable [phone] Allergies Allergen (clinical drug ingredient) Drug/Non Drug Allergy documented on EMR Reaction Allergy Type Onset Date Status Penicillin Unknown Drug Allergy Active Results Component Value Reference Range Notes Glucose, Whole Blood Reviewed date:05/23/2024 09:24:07 PM Interpretation: Performing Lab:[facility], [address] [place] [phone] Notes/Report: Glucose, Whole Blood 233 60-115 mg/dL METER # : [id number] Reason For Referral No Information Medications Medication SIG (Take, Route, Frequency, Duration) Notes Start Date End Date Status D3-1000 25 MCG (1000 UT) TAKE 1 CAPSULE BY MOUTH EVERY DAY Oral for 90 Active cloZAPine 100 MG TAKE 1/2 TABLET ORAL LY IN THE MORNING AND 3 TABS AT BEDTIME. Oral for 30 Active Allopurinol 100 MG TAKE 1 TABLET BY AJNET TH EVERY DAY Oral for 90 Active [...] Problem Status W/U Status Risk Notes Problem 910874036 Colon cancer screening (Z12.11) Active confirmed Problem 932054171 [facility] (curre nt) use of anticoagulants (Z79.01) Active confirmed Problem 680220773 Long-term curren t use of high risk medication other than anticoagulant (Z79.899) Active confirmed Vital Signs Blood pressure diastolic 00 mm Hg 05/01/2024 Height 5 ft 7 in in 05/01/2024 Blood pressure systolic 00 mm Hg 05/01/2024 Weight 171 lbs 05/01/2024 BMI 26.78 kg/m2 05/01/2024 Encounters Encounter Location Date Provider Diagnosis [facility] Out[facility] [address] [place], [place] [phone] 05/23/2024 Naveen Yang Jr Colon cancer screening Z12.11 [facility] [address] [place] [address] 05/01/2024 Naveen Yang Jr Colon cancer screening Z12.11 ; Long-term current use of high risk medication other than anticoagulant Z79.899 and [facility] (current) use of anticoagulants Z79.01 [facility] [address] [place] [address] 05/14/2024 Naveen Yang Jr [facility] [address] [place] [address] 05/19/2024 Naveen Yang Jr Assessments Encounter Date [...] the night before the prep. 05/01/2024 termite control representative (current) use of anticoagulants (ICD-10 - Z79.01) [...] [place] [address] [address] [id number] FERMIN PEREZ Self - patient is the insured MEDICAID OF [employer] [address] [place] [id number] FERMIN PEREZ Self - patient is the insured Medical (General) History Medical History History ICD Code Diabetes mellitus type 2 Pulmonary embolus Schizoaffective disorder bipolar disorder Intellectual disability PTSD Hyperlipidemia Surgical History Surgery Date(Month/Year) Excision of right axillary lesion
--- OUTSIDE RECORDS SUMMARY | 2024-08-03 19:25 | XMS_ITS ---
Author Organization [facility] Address [address] [place] [address] Care Team Providers Care Diesel Pile Hammer Operator Name Role Phone Trveor Conley MD Primary Care Provider Macrus Bonds Unavailable [phone] Encounters Encounter Location Date Provider Diagnosis [facility] [address] [place] [address] 02/19/2024 Marcus Tracey Plan Of Treatment Next Appt Details Provider Name:Marcus Tracey , 08/19/2024 04:00:00 PM, [address] [place] [address], [phone], Progress Notes * ANA MoisesKarenOB:1975 ( 49 yo M)Acc No.[id number]:02/19/2024 Progress Note Patient:?Gautam SIMMONS Provider:?Marcus Tracey DPM :1975???Age:48 Y???Sex:Male Prosper e:02/19/2024 Address:[address] , [address] [place], [place] [phone] Pcp:Trevor Conley MD Subjective: * Chief Complaints: [...] Tracey DPM Date:?2023 Generated for Luz burris/Danny/Nadine on:?08/03/2024 07:25 PM EDT
--- OUTSIDE RECORDS SUMMARY | 2024-08-03 19:25 | XMS_ITS ---
Author Organization [facility] Address [address] [place] [address] Care Team Providers Care Financial Quantitative Analyst Name Role Phone Trevor Conley MD Primary Care Provider Naveen Flores Jr REASON FOR VISIT eliquis note Encounters Encounter Location Date Provider Diagnosis [facility] [address] [place] [address] 05/19/2024 Naveen Yang Jr Plan Of Treatment No Information Progress Notes * FERMIN PEREZ ADOB:1975 (48 yo M)Acc No.[id number]:05/19/2024 Patient:?FERMIN PEREZ :1975???Age:48 Y???Sex:Male Address:[address] [place] [address] * true * Date:? Generated for Luz burris/Danny/eTransmitting on:?08/03/2024 07:24 PM EDT
--- OUTSIDE RECORDS SUMMARY | 2024-08-03 19:25 | XMS_ITS | Clinical Summary ---
Author Organization [employer] Address [address] [place] [address] 7t [place] [address] Care Team Providers Care Logistics Coordinator Name Role Phone Unavailable Primary Care Provider Unavailabl e Allergies No known active allergies Medications clindamycin (Cleocin) 150 MG capsule 2 caps one hour prior to dental procedure 4 capsule 4 Active Encounters Date Type Department Care Team Description 07/02/2024 Telephone [facility] [address] [place] [address] Sudhir Weinstein DMD from Last 3 Months [...] Most Recently Relevant to Health Maintenance Insurance [facility] MEDICAID STAND ADULT
--- OUTSIDE RECORDS SUMMARY | 2024-08-03 19:25 | XMS_ITS ---
Author Organization [facility] Address [address] [place] [address] Care Team Providers Care [employer] Worker Name Role Phone Trevor Conley MD Primary Care Provider UnavailMarcus Huber [phone] REASON FOR VISIT Reschedule Encounters Encounter Location Date Provider Diagnosis [address] [address] 02/18/2024 Marcus Tracey Plan Of Treatment Next Appt Details Provider Name:Marcus Tracey , 08/19/2024 04:00:00 PM, [address] [place] [address], [phone], Progress Notes * Moises SIMMONSinDOB:1975 ( 48 yo M)Acc No.[id number]:02/18/2024 Patient:?Gautam Simmons :1975???Age:48 Y???Sex:Male Address:[address] , [address] [place], [address] * true * Date:? Generated for Printi ng/Faxing/eTransmitting on:?08/03/2024 07:24 PM EDT
--- OUTSIDE RECORDS SUMMARY | 2024-08-03 19:25 | XMS_ITS ---
Author Organization [facility] Address [address] [place] [address] Care Team Providers Care Aba Tutor Name Role Phone Trevor Conley MD Primary Care Provider Naveen Flores Jr [phone] REASON FOR VISIT screening Encounters Encounter Location Date Provider Diagnosis [facility] Outpatient [address] [place] [phone] 05/23/2024 Naveen Yang Jr Colon cancer screening Z12.11 Assessments Encounter Date Diagnosis (ICD Code) Assessment Notes Treatment Notes Treatment Clinical Notes Section Notes 05/23/2024 Colon cancer screening (ICD-10 - Z12.11) Plan Of Treatment No Information Progress Notes * ANA FERMIN ADOB:1975 (49 yo M)Acc No.[id number]:05/23/2024 COLON WITH MAC Patient:?SAM PEREZIN Dimitrios Provider:?Naveen Yang MD :1975???Age:48 Y???Sex:Male Prosper e:05/23/2024 Address:[address] [place], [place] [phone] Pcp:Trevor Conley MD Subjective: * Chief Complaints: * ???1. Screening. * Medical History:? Objective: * Vitals:? Assessment: * Assessment: 1.?Colon cancer screening - Z12.11 (Primary)??? Plan: * Treatment: * Procedure Codes:?23920 DIAGN OSTIC COLONOSCOPY, 0528F RCMND FLW-UP 10 YRS DOCD * * The named appointment provid er may or may not be the originator of this progress note, and it is not deemed complete until electronically signed by the appointment provider. Sign off status: Pending * Provider:?Naveen Yang MD Date:?0 05/23/2024 Generated for Luz burris/Danny/Nadine on:?08/03/2024 07:24 PM EDT
--- OUTSIDE RECORDS SUMMARY | 2024-08-03 19:25 | XMS_ITS ---
Author Organization [facility] Address [address] [place] [address] Care Team Providers Care Clinical Research Assistant Name Role Phone Trevor Conley MD Primary Care Provider Naveen Flores Jr REASON FOR VISIT nurse order Encounters Encounter Location Date Provider Diagnosis [facility] [address] [place] [address] 05/14/2024 Naveen Yang Jr Plan Of Treatment No Information Progress Notes * FERMIN PEREZ ADOB:1975 (48 yo M)Acc No.[id number]:05/14/2024 Patient:?FERMIN PEREZ :1975???Age:48 Y???Sex:Male Address:[address] [place] [address] * true * Date:? Generated for Luz burris/Danny/eTransmitting on:?08/03/2024 07:25 PM EDT
[2024-08-03 19:37] LABS: Alanine Aminotransferase 44 U/L (0-40); Albumin Level 4.3 g/dL (3.5-5.0); Alkaline Phosphatase 103 U/L (39-117); Anion Gap 15 (12-20); Aspartate Amino Transferase 24 U/L (5-37); Bilirubin Total 0.3 mg/dL (0.0-1.0); Blood Urea Nitrogen 11 mg/dL (9-16); Calcium 9.3 mg/dL (8.4-10.2); Carbon Dioxide 22 mmol/L (22-29); Chloride 106 mmol/L (96-108); Creatinine Clr Calc Pharmacy 74.2; Estimated Glomerular Filt Rate > 60; Ethanol < 10 mg/dL; Glucose Random 190 mg/dL (60-115); Lipase 33 U/L (8-78); Magnesium 1.6 mg/dL (1.6-2.6); Potassium 3.9 mmol/L (3.3-5.1); Sodium 139 mmol/L (135-145); Total Protein 7.3 g/dL (6.5-8.0)
[2024-08-03 21:32] LABS: Acetaminophen LAB < 3 mcg/mL (<30); Salicylate < 5.0 mg/dL (15-30)
--- NOTE | 2024-08-03 23:53 | PC.NURSE ---
pt ambulated to and from bathroom with a steady gait. pt is more responsive now, able to answer questions and have conversation, mom at bedside. stated this has only happened once before when he was hospitalized inpatient for 12 weeks back in 2016. other than that he has been compliant with all psych meds no issues. plan for ct scan. urine sample obtained and sent to lab. call key within reach
[2024-08-03 23:57] LABS: Appearance Urine Clear; Color Urine Yellow; Glucose Urine UA Negative (Negative); Leukocyte Esterase Urine Negative (Negative); Nitrite Urine Negative (Negative); PH 5.5 (5.0-9.0); Specific Gravity - Urine <= 1.005 (1.005-1.025); UMIC TRIGGER UACC YES; Urine Blood Trace (Negative); Urine Ketones Negative (Negative); Urine Protein Negative (Neg-Trace)
[2024-08-04] LABS: Bacteria Urine None Seen (None Seen); Hyaline Casts Urine 0-2 /LPF (0-2); RBC Urine 0-2 /HPF (0-2); Squamous Epithelial Cell Urine 0-2 /HPF (0-2); WBC Urine 0-5 /HPF (0-5)
--- NOTE | 2024-08-04 | ECG_ITS ---
Test Reason : R/O PROLONGED QT Blood Pressure : */* mmHG Vent. Rate : 95 BPM Atrial Rate : 95 BPM P-R Int : 164 ms QRS Dur : 88 ms QT Int : 366 ms P-R-T Axes : 19 -17 61 degrees QTcB Int : 459 ms Normal sinus rhythm Minimal voltage criteria for LVH, may be normal variant ( R in aVL ) Nonspecific ST abnormality Septal infarct (cited on or before 08-Jul-2024) Abnormal ECG When compared with ECG of 08-Jul-2024 13:59, No significant change was found Referred By: Cher Cortez Electronically Signed By: JM ADKINS MD
[2024-08-04 00:09] LABS: Amphetamine Screen Urine Not Detected (Not Detect); Barbiturates, Urine Not Detected (Not Detect); Benzodiazepines Screen Urine Not Detected (Not Detect); Buprenorphine Scr Not Detected (Not Detect); Cannabinoid Screen Urine Not Detected (Not Detect); Cocaine Screen Urine Not Detected (Not Detect); Fentanyl, urine Not Detected (Not Detect); Methadone Screen, Urine Not Detected (Not Detect); Opiate Screen Urine Not Detected (Not Detect); Oxycodone Screen Urine Not Detected (Not Detect); Phencyclidine Screen Urine Not Detected (Not Detect)
--- NOTE | 2024-08-04 01:41 | PC.NURSE ---
med rec completed using home med list provided by patient's mother
[2024-08-04 01:55] LABS: Glucose, Whole Blood 220 mg/dL (60-115)
[2024-08-04] MEDS: clonazePAM 0.5 MG TABLET PO ×3 (02:19→20:50)
[2024-08-04] MEDS: Benztropine Mesylate 1 MG TABLET PO ×3 (02:19→20:50)
[2024-08-04] MEDS: Apixaban 2.5 MG TABLET PO ×3 (02:19→20:50)
[2024-08-04] MEDS: metFORMIN HCl 1,000 MG TABLET 1000 MG PO ×3 (02:19→16:32)
[2024-08-04] MEDS: HaloperidoL 5 MG TABLET PO ×2 (02:19→20:50)
[2024-08-04] MEDS: Insulin Glargine,Hum.rec.anlog 100 UNIT/ML 10 ML VIAL 46 UNIT SUBCUT ×2 (02:50→20:50)
--- NOTE | 2024-08-04 02:50 | ED_ITS ---
HPI - General Adult General Chief complaint: Altered Mental Status Stated complaint: AMS Time Seen by Provider: 08/03/24 19:12 Source: family and EMS Limitations: altered mental status History of Present Illness ED Provider: Lisa Vallecillo PA-C HPI narrative: 49-year-old male with a history of schizoaffective, schizophrenia, diabetes, who presents with altered mental status. Patient was in adult foster care, his family felt that he was ?not himself?. Patient had been out with his mother all day. When it was dinner time, he was not responding to his caregivers, he only ate a few bites of food. The patient seemed anxious, withdrawn, we will not engage in conversation. The patient's mother was called to the home, she indicates that he has had episodes like this in the past. When I asked the patient if anything is bothering him, he denies. He denies SI or HI. When asked if he is hearing auditory hallucinations he states ?it is hard to tell I am not sure?. He denies visual hallucinations. He denies use of alcohol or illicit substances. Related Data Home Medications ?Medication ?Instructions ?Recorded ?Confirmed ascorbic acid (vitamin C) 500 mg 1 tab PO DAILY 03/02/20 08/04/24 tablet (Vitamin C) cholecalciferol (vitamin D3) 25 1 cap PO DAILY 03/02/20 08/04/24 mcg (1,000 unit) capsule (Vitamin D3) clozapine 100 mg tablet 300 mg PO BEDTIME 03/02/20 08/04/24 clozapine 50 mg tablet 50 mg PO DAILY 03/02/20 08/04/24 fluticasone propionate 50 1 spray intranasal BID 03/02/20 08/04/24 mcg/actuation nasal spray,suspension haloperidol 5 mg tablet 5 mg PO BEDTIME 03/02/20 08/04/24 metformin 1,000 mg tablet 1 tab PO BID 03/02/20 08/04/24 multivitamin 1 tab PO DAILY 03/02/20 08/04/24 sertraline 100 mg tablet 1.5 tab PO DAILY 03/02/20 08/04/24 simvastatin 80 mg tablet 1 tab PO DAILY 03/02/20 08/04/24 allopurinol 100 mg tablet 100 mg PO DAILY 06/09/20 08/04/24 apixaban 2.5 mg tablet (Eliquis) 2.5 mg PO BID 07/02/23 08/04/24 clonazepam 1 mg tablet 0.5 mg PO BID 07/02/23 08/04/24 benztropine 1 mg tablet 1 mg PO BID 08/04/24 08/04/24 Previous Rx's ?Medication ?Instructions ?Recorded pen needle, diabetic 32 gauge x #200 ea 07/08/24 Basaglar KwikPen U-100 Insulin 100 46 unit (0.46 mL) subcut QPM 90 07/15/24 unit/mL (3 mL) subcutaneous days #42 mL (insulin glargine) blood sugar diagnostic (FreeStyle #100 ea 07/15/24 Lite Strips) insulin aspart U-100 100 unit/mL 1 sliding scale dose subcut 07/15/24 (3 mL) subcutaneous pen (Novolog USEASDIRECTD 30 days #6 mL FlexPen U-100 Insulin aspart) lancets 28 gauge (FreeStyle #100 ea 07/16/24 Lancets) Allergies Allergy/AdvReac Type Severity Reaction Status Date / Time Penicillins [PENICILLINS] Allergy Unknown Unknown Verified 08/03/24 19:08 Review of Systems 2 Review of Systems: Yes all other systems are reviewed and are negative Constitutional: Constitutional: Denies fatigue and Denies fever(s) Cardiovascular: Cardiovascular: Denies chest pain Respiratory: Respiratory: Denies cough Gastrointestinal: Gastrointestinal: Denies abdominal pain Psychiatric: Psychiatric: Reports auditory hallucinations, Denies visual hallucinations, Denies homicidal ideation and Denies suicidal ideation Endocrine: Endocrine: Denies fatigue PMFSH Past Medical History Attestation statement: The following information was validated with the patient. Medical History (Updated 08/05/24 @ 17:26 by Terri Paiz NP) Insulin dependent type 2 diabetes mellitus Gout Hyperlipidemia Bipolar 1 disorder [place]addle pulmonary embolus Diabetes insipidus High cholesterol Anxiety PTSD (post-traumatic stress disorder) Schizo affective schizophrenia Surgical History Hx of tooth extraction Hx of excision of mass Family History Family History Mother Fibromyalgia Post traumatic stress disorder (PTSD) Anxiety Osteopenia High cholesterol Anemia Cerebellar ataxia Social History Social History Household Members: Foster Family Household Members Other:: Jarvis and Amarilis foster Housing: House Housing Other:: assisted/Assisted living Do you presently have visiting nurse or other home services: Yes Unable to assess alcohol history related to: Unknown Alcohol intake: never Patient Tobacco Use Status: Never used Tobacco Use of substances other than those prescribed or required for medical reasons: Yes Substance Use Type: Caffiene Substance Use Type Other:: Coffee not often Currently Displaying Signs/Symptoms of Drug Intoxication Withdrawal: No Have you been hit, kicked, punched, or otherwise hurt by someone within the past year? If so, by whom?: No Do you feel safe in your current relationship?: No Current Relationship Is there a partner from a previous relationship who is making you feel unsafe now?: No Are you made to feel afraid or neglected: No Spiritual Healthcare Practices: None Hoahaoism Healthcare Practices: None Cultural Healthcare Practices: None Advance Directives: Yes Advance Directives on File: Yes Advance Directives Date on File: 07/05/23 Do you have thoughts of harming others: None Do you have a plan to hurt others: No Plan Recently lost weight without trying: No How much weight loss: Not applicable Eating poorly because of decreased appetite: No Nutrition screen score: 0 Nutrition Risks: No Nutritional Risk Poor oral hygiene: No service: No Current occupational status: disabled Sexual orientation: Don't Know Cognitive needs: Yes Hearing needs: No Vision needs: No Physical Exam ED Vital Signs: Vital Signs - 24 hr 08/03/24 19:05 Temperature 98.8 F Pulse Rate 84 Respiratory Rate 16 Blood Pressure 164/93 H Pulse Oximetry 95 Oxygen Delivery Method Room Air BMI result Body Mass Index 26.5 Const Other: Alert, patient engaging in conversation, making eye contact when I ask him questions Orientation/consciousness: oriented to person and oriented to place Resp Effort & Inspection: normal respiratory effort Cardio Other: Normal peripheral perfusion Skin Other: Warm dry no rash Neuro General: oriented to person, oriented to place, gait normal, no focal motor deficits and CN's II-XI intact bilaterally Psych Other: Cooperative, child like affect Course Reevaluation(s) Reevaluation #1: Time: 03:03 Date: 08/04/24 Provider: NAZIA Padilla Patient in physician observation for psychiatric evaluation.? No acute events reported overnight. No current complaints. VS stable.? Patient is in bed search status/pending CARE team evaluation. Will continue to monitor. Medications Administered Generic Name Dose Route Start Last Admin Trade Name George PRN Reason Stop Dose Admin Allopurinol 200 mg 08/04/24 09:00 08/07/24 08:29 Allopurinol 100 Mg Tablet PO 200 mg DAILY RUBEN Administration Apixaban 2.5 mg 08/04/24 02:15 08/07/24 08:31 Apixaban 2.5 Mg Tablet PO 2.5 mg BID RUBEN Administration Ascorbic Acid 500 mg 08/04/24 09:00 08/07/24 08:30 Ascorbic Acid 500 Mg Tablet PO 500 mg DAILY RUBEN Administration Atorvastatin Calcium 40 mg 08/04/24 09:00 08/07/24 08:29 Atorvastatin Calcium 40 Mg Tablet PO 40 mg DAILY RUBEN Administration Benztropine Mesylate 1 mg 08/04/24 02:15 08/07/24 08:31 Benztropine Mesylate 1 Mg Tablet PO 1 mg BID RUBEN Administration Clonazepam 0.5 mg 08/04/24 02:15 08/07/24 08:29 Clonazepam 0.5 Mg Tablet PO 0.5 mg BID RUBEN Administration Clozapine 50 mg 08/04/24 09:00 08/07/24 08:31 Clozapine 25 Mg Tablet PO 50 mg DAILY RUBEN Administration Clozapine 300 mg 08/04/24 02:15 08/06/24 20:32 Clozapine 100 Mg Tablet PO 300 mg BEDTIME RUBEN Administration Fluticasone Propionate 1 spray 08/04/24 09:00 08/07/24 08:40 Fluticasone Propionate Nasal 16 Gm [place] NOSTRIL-B 1 spray BID RUBEN Administration Haloperidol 5 mg 08/04/24 02:15 08/06/24 20:32 Haloperidol 5 Mg Tablet PO 5 mg BEDTIME RUBEN Administration Insulin Glargine 46 unit 08/04/24 02:15 08/06/24 20:38 Insulin Glargine,Hum.Rec.Anlog 100 Unit/Ml 10 Ml Vial SUBCUT 46 unit BEDTIME RUBEN Administration Insulin Human Lispro 0 unit 08/06/24 16:30 08/07/24 08:33 Insulin Lispro 100 Unit/Ml 3 Ml Vial SUBCUT 2 unit QIDACHS RUBEN Administration Protocol Metformin HCl 1,000 mg 08/04/24 02:15 08/07/24 08:30 Metformin Hcl 1,000 Mg Tablet PO 1,000 mg BIDWM RUBEN Administration Multivitamins/Vitamin C 1 tab 08/04/24 09:00 08/07/24 08:30 Multivitamin Tablet PO 1 tab DAILY RUBEN Administration Sertraline HCl 150 mg 08/04/24 09:00 08/07/24 08:30 Sertraline Hcl 50 Mg Tablet PO 150 mg DAILY RUBEN Administration Vitamin D 25 mcg 08/04/24 09:00 08/07/24 08:28 Cholecalciferol (Vitamin D3) 25 Mcg Tablet PO 25 mcg DAILY RUBEN Administration Discontinued Medications Generic Name Dose Route Start Last Admin Trade Name George PRN Reason Stop Dose Admin Clozapine 300 mg 08/04/24 02:30 08/04/24 03:16 Clozapine 100 Mg Tablet PO 08/04/24 02:31 300 mg ONCE ONE Administration Medical Decision Making Medical Decision Making [facility] Narrative: 49-year-old male with a history of schizoaffective, schizophrenia, diabetes, who presents with altered mental status. Patient was in adult foster care, his family felt that he was ?not himself?. Patient had been out with his mother all day. When it was dinner time, he was not responding to his caregivers, he only ate a few bites of food. The patient seemed anxious, withdrawn, we will not engage in conversation. The patient's mother was called to the home, she indicates that he has had episodes like this in the past. When I asked the patient if anything is bothering him, he denies. He denies SI or HI. When asked if he is hearing auditory hallucinations he states ?it is hard to tell I am not sure?. He denies visual hallucinations. He denies use of alcohol or illicit substances. Problem: Psychiatric illness, diarrhea History: Per patient I have considered the following differential diagnoses: Hypoglycemia, decompensated psychiatric illness, drug/alcohol intoxication, SI, HI Plan: Mom is here at bedside, she states he is much improved from when he had arrived. She states he has had similar episodes in the past when he was decompensated with a psychiatric illness. She states he has been ?good for a really long time?. She denies recent medication changes. We will be screening basic labs, serum ethanol, U tox . I am obtaining a CT scan of the brain, patient has had stable underlying psychiatric illness, this is a change from his baseline. He will likely be referred to the care team. I have independently reviewed the following tests: Labs: No leukocytosis, not anemic, no electrolyte abnormality noted, he is not hypoglycemic, tox screen negative, urine not infected, CT brain:IMPRESSION: 1. No acute intracranial findings. Lab Data 08/03/24 19:10 08/05/24 12:50 Labs: Lab Results 08/03/24 08/03/24 08/03/24 Range/Units 19:10 19:11 21:12 WBC 10.1 (4.8-10.8) X10*3/uL RBC 4.52 L (4.60-5.80) X10*6/uL Hgb 13.2 L (14.0-18.0) g/dl Hct 38.5 L (42.0-52.0) % MCV 85.2 (80.0-98.0) fL MCH 29.2 (27.0-33.0) pg MCHC 34.3 (31.0-36.0) g/dl RDW 13.5 (11.0-16.0) % Plt Count 190 (160-400) X10*3/uL MPV 10.5 (9.4-12.4) fL Immature Gran % (Auto) 0.5 H (0.0-0.4) % Neut % (Auto) 80.8 H (45-73) % Lymph % (Auto) 12.4 L (20-40) % [place] % (Auto) 4.1 (2-11) % Eos % (Auto) 1.5 (0-4) % Baso % (Auto) 0.7 (0-2) % Lymph # (Auto) 1.3 (1.2-4.9) X10*3/uL [place] # (Auto) 0.4 (0.1-1.2) X10*3/uL Eos # (Auto) 0.2 (0.0-0.4) X10*3/uL Baso # (Auto) 0.1 (0.0-0.2) X10*3/uL Abs Immat Gran (auto) 0.05 H (0.00-0.03) X10*3/uL Absolute Neuts (auto) 8.1 (2.0-8.3) x10*3/uL Absolute Nucleated RBC 0.000 (0.0-0.012) X10*3/uL Nucleated RBC % (auto) 0.0 (0.0-0.2) /100WBC Sodium 139 (135-145) mmol/L Potassium 3.9 (3.3-5.1) mmol/L Chloride 106 (96-108) mmol/L Carbon Dioxide 22 (22-29) mmol/L Anion Gap 15 (12-20) BUN 11 (9-16) mg/dL Creatinine 1.15 (0.5-1.4) mg/dL Estim Creat Clear Calc 74.2 Estimated GFR > 60 POC Glucose (60-115) mg/dL Random Glucose 190 H (60-115) mg/dL Calcium 9.3 (8.4-10.2) mg/dL Magnesium 1.6 (1.6-2.6) mg/dL Total Bilirubin 0.3 (0.0-1.0) mg/dL AST 24 (5-37) U/L ALT 44 H (0-40) U/L Alkaline Phosphatase 103 (39-117) U/L Troponin I High Sens 4.0 (<3.5-35.0) ng/L Total Protein 7.3 (6.5-8.0) g/dL Albumin 4.3 (3.5-5.0) g/dL Lipase 33 (8-78) U/L Urine Color Urine Appearance Urine pH (5.0-9.0) Ur Specific [place] (1.005-1.025) Urine Protein (Neg-Trace) mg/dL Urine Glucose (UA) (Negative) mg/dL Urine Ketones (Negative) mg/dL Urine Blood (Negative) Urine Nitrite (Negative) Ur Leukocyte Esterase (Negative) Urine RBC (0-2) /HPF Urine WBC (0-5) /HPF Ur Squamous Epith Cells (0-2) /HPF Urine Bacteria (None Seen) Hyaline Casts (0-2) /LPF Salicylates < 5.0 L (15-30) mg/dL Urine Opiates Screen (Not Detect) Ur Buprenorphine Scrn (Not Detect) ng/mL Ur Oxycodone Screen (Not Detect) ng/mL Urine Methadone Screen (Not Detect) ng/mL Urine Fentanyl Screen (Not Detect) Acetaminophen < 3 (<30) mcg/mL Ur Barbiturates Screen (Not Detect) Ur Phencyclidine Scrn (Not Detect) Ur Amphetamines Screen (Not Detect) U Benzodiazepines Scrn (Not Detect) Urine Cocaine Screen (Not Detect) U Marijuana (THC) Screen (Not Detect) Ethyl Alcohol < 10 mg/dL 08/03/24 08/04/24 08/04/24 Range/Units 23:49 01:46 07:34 WBC (4.8-10.8) X10*3/uL RBC (4.60-5.80) X10*6/uL Hgb (14.0-18.0) g/dl Hct (42.0-52.0) % MCV (80.0-98.0) fL MCH (27.0-33.0) pg MCHC (31.0-36.0) g/dl RDW (11.0-16.0) % Plt Count (160-400) X10*3/uL MPV (9.4-12.4) fL Immature Gran % (Auto) (0.0-0.4) % Neut % (Auto) (45-73) % Lymph % (Auto) (20-40) % [place] % (Auto) (2-11) % Eos % (Auto) (0-4) % Baso % (Auto) (0-2) % Lymph # (Auto) (1.2-4.9) X10*3/uL [place] # (Auto) (0.1-1.2) X10*3/uL Eos # (Auto) (0.0-0.4) X10*3/uL Baso # (Auto) (0.0-0.2) X10*3/uL Abs Immat Gran (auto) (0.00-0.03) X10*3/uL Absolute Neuts (auto) (2.0-8.3) x10*3/uL Absolute Nucleated RBC (0.0-0.012) X10*3/uL Nucleated RBC % (auto) (0.0-0.2) /100WBC Sodium (135-145) mmol/L Potassium (3.3-5.1) mmol/L Chloride (96-108) mmol/L Carbon Dioxide (22-29) mmol/L Anion Gap (12-20) BUN (9-16) mg/dL Creatinine (0.5-1.4) mg/dL Estim Creat Clear Calc Estimated GFR POC Glucose 220 H 95 (60-115) mg/dL Random Glucose (60-115) mg/dL Calcium (8.4-10.2) mg/dL Magnesium (1.6-2.6) mg/dL Total Bilirubin (0.0-1.0) mg/dL AST (5-37) U/L ALT (0-40) U/L Alkaline Phosphatase (39-117) U/L Troponin I High Sens (<3.5-35.0) ng/L Total Protein (6.5-8.0) g/dL Albumin (3.5-5.0) g/dL Lipase (8-78) U/L Urine Color Yellow Urine Appearance Clear Urine pH 5.5 (5.0-9.0) Ur Specific [place] <= 1.005 (1.005-1.025) Urine Protein Negative (Neg-Trace) mg/dL Urine Glucose (UA) Negative (Negative) mg/dL Urine Ketones Negative (Negative) mg/dL Urine Blood Trace H (Negative) Urine Nitrite Negative (Negative) Ur Leukocyte Esterase Negative (Negative) Urine RBC 0-2 (0-2) /HPF Urine WBC 0-5 (0-5) /HPF Ur Squamous Epith Cells 0-2 (0-2) /HPF Urine Bacteria None Seen (None Seen) Hyaline Casts 0-2 (0-2) /LPF Salicylates (15-30) mg/dL Urine Opiates Screen Not Detected (Not Detect) Ur Buprenorphine Scrn Not Detected (Not Detect) ng/mL Ur Oxycodone Screen Not Detected (Not Detect) ng/mL Urine Methadone Screen Not Detected (Not Detect) ng/mL Urine Fentanyl Screen Not Detected (Not Detect) Acetaminophen (<30) mcg/mL Ur Barbiturates Screen Not Detected (Not Detect) Ur Phencyclidine Scrn Not Detected (Not Detect) Ur Amphetamines Screen Not Detected (Not Detect) U Benzodiazepines Scrn Not Detected (Not Detect) Urine Cocaine Screen Not Detected (Not Detect) U Marijuana (THC) Screen Not Detected (Not Detect) Ethyl Alcohol mg/dL 08/04/24 08/04/24 08/04/24 Range/Units 13:18 16:35 22:42 WBC (4.8-10.8) X10*3/uL RBC (4.60-5.80) X10*6/uL Hgb (14.0-18.0) g/dl Hct (42.0-52.0) % MCV (80.0-98.0) fL MCH (27.0-33.0) pg MCHC (31.0-36.0) g/dl RDW (11.0-16.0) % Plt Count (160-400) X10*3/uL MPV (9.4-12.4) fL Immature Gran % (Auto) (0.0-0.4) % Neut % (Auto) (45-73) % Lymph % (Auto) (20-40) % [place] % (Auto) (2-11) % Eos % (Auto) (0-4) % Baso % (Auto) (0-2) % Lymph # (Auto) (1.2-4.9) X10*3/uL [place] # (Auto) (0.1-1.2) X10*3/uL Eos # (Auto) (0.0-0.4) X10*3/uL Baso # (Auto) (0.0-0.2) X10*3/uL Abs Immat Gran (auto) (0.00-0.03) X10*3/uL Absolute Neuts (auto) (2.0-8.3) x10*3/uL Absolute Nucleated RBC (0.0-0.012) X10*3/uL Nucleated RBC % (auto) (0.0-0.2) /100WBC Sodium (135-145) mmol/L Potassium (3.3-5.1) mmol/L Chloride (96-108) mmol/L Carbon Dioxide (22-29) mmol/L Anion Gap (12-20) BUN (9-16) mg/dL Creatinine (0.5-1.4) mg/dL Estim Creat Clear Calc Estimated GFR POC Glucose 101 175 H 162 H (60-115) mg/dL Random Glucose (60-115) mg/dL Calcium (8.4-10.2) mg/dL Magnesium (1.6-2.6) mg/dL Total Bilirubin (0.0-1.0) mg/dL AST (5-37) U/L ALT (0-40) U/L Alkaline Phosphatase (39-117) U/L Troponin I High Sens (<3.5-35.0) ng/L Total Protein (6.5-8.0) g/dL Albumin (3.5-5.0) g/dL Lipase (8-78) U/L Urine Color Urine Appearance Urine pH (5.0-9.0) Ur Specific [place] (1.005-1.025) Urine Protein (Neg-Trace) mg/dL Urine Glucose (UA) (Negative) mg/dL Urine Ketones (Negative) mg/dL Urine Blood (Negative) Urine Nitrite (Negative) Ur Leukocyte Esterase (Negative) Urine RBC (0-2) /HPF Urine WBC (0-5) /HPF Ur Squamous Epith Cells (0-2) /HPF Urine Bacteria (None Seen) Hyaline Casts (0-2) /LPF Salicylates (15-30) mg/dL Urine Opiates Screen (Not Detect) Ur Buprenorphine Scrn (Not Detect) ng/mL Ur Oxycodone Screen (Not Detect) ng/mL Urine Methadone Screen (Not Detect) ng/mL Urine Fentanyl Screen (Not Detect) Acetaminophen (<30) mcg/mL Ur Barbiturates Screen (Not Detect) Ur Phencyclidine Scrn (Not Detect) Ur Amphetamines Screen (Not Detect) U Benzodiazepines Scrn (Not Detect) Urine Cocaine Screen (Not Detect) U Marijuana (THC) Screen (Not Detect) Ethyl Alcohol mg/dL 08/05/24 Range/Units 07:48 WBC (4.8-10.8) X10*3/uL RBC (4.60-5.80) X10*6/uL Hgb (14.0-18.0) g/dl Hct (42.0-52.0) % MCV (80.0-98.0) fL MCH (27.0-33.0) pg MCHC (31.0-36.0) g/dl RDW (11.0-16.0) % Plt Count (160-400) X10*3/uL MPV (9.4-12.4) fL Immature Gran % (Auto) (0.0-0.4) % Neut % (Auto) (45-73) % Lymph % (Auto) (20-40) % [place] % (Auto) (2-11) % Eos % (Auto) (0-4) % Baso % (Auto) (0-2) % Lymph # (Auto) (1.2-4.9) X10*3/uL [place] # (Auto) (0.1-1.2) X10*3/uL Eos # (Auto) (0.0-0.4) X10*3/uL Baso # (Auto) (0.0-0.2) X10*3/uL Abs Immat Gran (auto) (0.00-0.03) X10*3/uL Absolute Neuts (auto) (2.0-8.3) x10*3/uL Absolute Nucleated RBC (0.0-0.012) X10*3/uL Nucleated RBC % (auto) (0.0-0.2) /100WBC Sodium (135-145) mmol/L Potassium (3.3-5.1) mmol/L Chloride (96-108) mmol/L Carbon Dioxide (22-29) mmol/L Anion Gap (12-20) BUN (9-16) mg/dL Creatinine (0.5-1.4) mg/dL Estim Creat Clear Calc Estimated GFR POC Glucose 276 H (60-115) mg/dL Random Glucose (60-115) mg/dL Calcium (8.4-10.2) mg/dL Magnesium (1.6-2.6) mg/dL Total Bilirubin (0.0-1.0) mg/dL AST (5-37) U/L ALT (0-40) U/L Alkaline Phosphatase (39-117) U/L Troponin I High Sens (<3.5-35.0) ng/L Total Protein (6.5-8.0) g/dL Albumin (3.5-5.0) g/dL Lipase (8-78) U/L Urine Color Urine Appearance Urine pH (5.0-9.0) Ur Specific [place] (1.005-1.025) Urine Protein (Neg-Trace) mg/dL Urine Glucose (UA) (Negative) mg/dL Urine Ketones (Negative) mg/dL Urine Blood (Negative) Urine Nitrite (Negative) Ur Leukocyte Esterase (Negative) Urine RBC (0-2) /HPF Urine WBC (0-5) /HPF Ur Squamous Epith Cells (0-2) /HPF Urine Bacteria (None Seen) Hyaline Casts (0-2) /LPF Salicylates (15-30) mg/dL Urine Opiates Screen (Not Detect) Ur Buprenorphine Scrn (Not Detect) ng/mL Ur Oxycodone Screen (Not Detect) ng/mL Urine Methadone Screen (Not Detect) ng/mL Urine Fentanyl Screen (Not Detect) Acetaminophen (<30) mcg/mL Ur Barbiturates Screen (Not Detect) Ur Phencyclidine Scrn (Not Detect) Ur Amphetamines Screen (Not Detect) U Benzodiazepines Scrn (Not Detect) Urine Cocaine Screen (Not Detect) U Marijuana (THC) Screen (Not Detect) Ethyl Alcohol mg/dL Discharge Plan Discharge Clinical Impression: Auditory hallucination Patient Disposition: Admitted As Inpatient Interventions: Admission Worksheet (ED) Last Done: 08/05/24 11:00 Discharge Date/Time: 08/05/24 11:58
[2024-08-04 02:52] VITALS: BP 158/103; PULSE 87; RESP 18; TEMP 36.8; O2SAT 94
[2024-08-04] MEDS: cloZAPine 100 MG TABLET 300 MG PO ×2 (03:16→21:13)
--- NOTE | 2024-08-04 03:45 | PC.NURSE ---
pt given all bedtime meds per mar.
--- NOTE | 2024-08-04 07:27 | PC.NURSE ---
called pharmacy for missing meds
[2024-08-04 07:29] VITALS: BP 146/94; PULSE 105; RESP 18; TEMP 36.7; O2SAT 95
[2024-08-04] MEDS: cloZAPine 25 MG TABLET 50 MG PO (07:40)
[2024-08-04] MEDS: allopurinoL 100 MG TABLET 200 MG PO (07:40)
[2024-08-04] MEDS: Cholecalciferol (Vitamin D3) 25 MCG TABLET PO (07:41)
[2024-08-04] MEDS: Sertraline HCL 50 MG TABLET 150 MG PO (07:41)
[2024-08-04] MEDS: Ascorbic Acid 500 MG TABLET PO (07:41)
[2024-08-04] MEDS: Multivitamin TABLET 1 TAB PO (07:41)
[2024-08-04] MEDS: Atorvastatin Calcium 40 MG TABLET PO (07:41)
[2024-08-04] MEDS: Fluticasone Propionate Nasal 16 GM SPRAY 1 SPRAY NOSTRIL-B ×2 (07:42→20:53)
[2024-08-04 07:49] LABS: Glucose, Whole Blood 95 mg/dL (60-115)
--- NOTE | 2024-08-04 08:36 | MHC.CARE ---
Pt will be an inpatient bedsearch.
[2024-08-04 13:22] LABS: Glucose, Whole Blood 101 mg/dL (60-115)
[2024-08-04 14:35] VITALS: BP 137/99; PULSE 98; RESP 18; TEMP 36.2; O2SAT 98
--- NOTE | 2024-08-04 14:46 | PC.NURSE ---
patient a&ox2, speaking in full sentences, rr equal/non labored, pt ambulated to bathroom stby assist steady gait. sitter at bedside, vss, call key within reach, plan of care ongoing
--- NOTE | 2024-08-04 16:15 | PHA.MEDREC ---
Pharmacy Consult ? Medication Reconciliation Pharmacy has completed the medication reconciliation. instrumentation engineering technician spoke to pat mom. Patient doesnt live in a skilled nursing but with [facility] and . Family knew meds and matched claim history
--- NOTE | 2024-08-04 16:33 | PC.NURSE ---
patient calm/compliant with care, pt denies pain/discomfort
[2024-08-04 16:45] LABS: Glucose, Whole Blood 175 mg/dL (60-115)
[2024-08-04 22:00] VITALS: BP 142/82; PULSE 72; RESP 18; TEMP 36.7; O2SAT 98
--- NOTE | 2024-08-04 22:42 | PC.NURSE ---
Pt noted to be hearing voices, asked pt if any thoughts of harming himself or others and he stated no. Pt also denying voices are telling him to hurt himself or anyone else. Pt states what the voices are saying are weird and he doesn't know if he wants to talk about it. pt remains in no notable distress and sitter is in place.
[2024-08-04 22:45] LABS: Glucose, Whole Blood 162 mg/dL (60-115)
[2024-08-05] MEDS: metFORMIN HCl 1,000 MG TABLET 1000 MG PO ×2 (07:39→17:07)
[2024-08-05 07:41] VITALS: BP 153/96; PULSE 104; RESP 16; TEMP 36.4; O2SAT 95
[2024-08-05 07:53] LABS: Glucose, Whole Blood 276 mg/dL (60-115)
[2024-08-05] MEDS: Ascorbic Acid 500 MG TABLET PO (09:00)
[2024-08-05] MEDS: Sertraline HCL 50 MG TABLET 150 MG PO (09:00)
[2024-08-05] MEDS: Apixaban 2.5 MG TABLET PO ×2 (09:00→21:04)
[2024-08-05] MEDS: cloZAPine 25 MG TABLET 50 MG PO (09:00)
[2024-08-05] MEDS: Benztropine Mesylate 1 MG TABLET PO ×2 (09:00→21:04)
[2024-08-05] MEDS: Atorvastatin Calcium 40 MG TABLET PO (09:00)
[2024-08-05] MEDS: Multivitamin TABLET 1 TAB PO (09:00)
[2024-08-05] MEDS: allopurinoL 100 MG TABLET 200 MG PO (09:00)
[2024-08-05] MEDS: clonazePAM 0.5 MG TABLET PO ×2 (09:00→21:04)
[2024-08-05] MEDS: Fluticasone Propionate Nasal 16 GM SPRAY 1 SPRAY NOSTRIL-B ×2 (09:01→21:02)
[2024-08-05] MEDS: Cholecalciferol (Vitamin D3) 25 MCG TABLET PO (09:01)
--- NOTE | 2024-08-05 09:13 | PC.NURSE ---
PT REQUESTING CONSTIPATION MEDICATION. STATES HE PASSED SMALL AMT THIS AM, LAST NORMAL BM YESTERDAY. NORMOACTIVE BS THROUGHOUT. PUSHED PO FLUIDS
--- NOTE | 2024-08-05 11:44 | PC.NURSE ---
Report given to Zakia MAGALLON.
[2024-08-05 12:24] VITALS: BMI 24.6
[2024-08-05 12:33] LABS: Glucose, Whole Blood 111 mg/dL (60-115)
[2024-08-05 13:39] LABS: Alanine Aminotransferase 42 U/L (0-40); Anion Gap 18 (12-20); Aspartate Amino Transferase 24 U/L (5-37); Bilirubin Total 0.4 mg/dL (0.0-1.0); Blood Urea Nitrogen 16 mg/dL (9-16); Calcium 10.8 mg/dL (8.4-10.2); Carbon Dioxide 26 mmol/L (22-29); Chloride 102 mmol/L (96-108); Creatinine Clr Calc Pharmacy 73.6; Estimated Glomerular Filt Rate > 60; Glucose Random 134 mg/dL (60-115); Potassium 4.3 mmol/L (3.3-5.1); Sodium 142 mmol/L (135-145); Total Protein 8.6 g/dL (6.5-8.0)
--- NOTE | 2024-08-05 14:14 | P.HPPS_ITS ---
HPI Date of Service: 08/05/24 Chief Complaint: altered mental status Sources of Information: patient interviewed, chart reviewed and crisis/core team assessment reviewed HPI Subjective Notes: Bell Warning and Conditional Voluntary Narrative: Patient is a 49-year-old male with history of schizoaffective disorder, PTSD and intellectual disability who arrived to ER via ambulance from his adult foster fdc due to his family feeling that he was not acting himself. Per crisis report, patient been out with his mother all day and appeared to be at his baseline. During dinner that evening, he was not responding to his caregivers very little and appeared withdrawn and would not engage in conversation. Patient has a history of 2 inpatient psychiatric hospitalizations and 1 respite admission. Patient is medication compliant. No known history of substance use. Per collateral, there is no known precipitant for patient's presentation. Patient had pressured speech and unable to answer questions. He appeared internally preoccupied during assessment but denied VH/AH. Patient reports good sleep and appetite. Per collateral, patient does not experience auditory or visual hallucinations but does have memory issues and often stops mid sentence to gather his thoughts. During admission assessment, patient presents alert and oriented x3. Patient was able to understand reason for hospitalization and stated he was seeking treatment for his mental illness. Calm and cooperative. Patient reports feeling anxious ; patient reports difficulty answering questions at times due to auditory hallucinations. patient stated, I'm starting to hear them again. They come and go. They're whispers. I have had voices for awhile. My meds like the Clozaril make them better . Patient reports he does not know why he was not responding to his caregivers during dinner. He reports being medication compliant. Pt reports he does not like his current living situation because he feels the woman he lives with makes up lies about him and likes to start trouble . Patient denies any issues with sleep or eating. denies SI/HI/VH. Past Psychiatric History: Outpatient psychiatrist: Dr. Anabelle Armendariz Therapist: Chana Kelly [facility] Two prior inpatient psychiatric hospitalizations. One respite admission. Medical Evaluation Reviewed: Yes [facility] Medical History (Updated 08/05/24 @ 17:26 by Terri Paiz NP) Insulin dependent type 2 diabetes mellitus Gout Hyperlipidemia Bipolar 1 disorder Saddle pulmonary embolus Diabetes insipidus High cholesterol Anxiety PTSD (post-traumatic stress disorder) Schizo affective schizophrenia Surgical History Hx of tooth extraction Hx of excision of mass Family History: Unknown Social History: Lives in a [facility] adult foster care environment since 2017. Single. No children. Substance History: Denies Trauma History: yes Diagnostics Vital Signs (24Hr): Vital Signs - 24 hr 08/04/24 14:35 08/04/24 22:00 08/05/24 07:41 Temperature 97.1 F 98.0 F 97.6 F Pulse Rate 98 72 104 H Respiratory Rate 18 18 16 Blood Pressure 137/99 H 142/82 H 153/96 H Pulse Oximetry 98 98 95 Oxygen Delivery Method Room Air Room Air Room Air BMI result Body Mass Index 24.6 Labs 08/03/24 19:10 08/05/24 12:50 Labs: Laboratory Results - last 48 hr 08/03/24 08/03/24 08/03/24 19:10 19:11 21:12 WBC 10.1 RBC 4.52 L Hgb 13.2 L Hct 38.5 L MCV 85.2 MCH 29.2 MCHC 34.3 RDW 13.5 Plt Count 190 MPV 10.5 Immature Gran % (Auto) 0.5 H Neut % (Auto) 80.8 H Lymph % (Auto) 12.4 L [place] % (Auto) 4.1 Eos % (Auto) 1.5 Baso % (Auto) 0.7 Lymph # (Auto) 1.3 [place] # (Auto) 0.4 Eos # (Auto) 0.2 Baso # (Auto) 0.1 Abs Immat Gran (auto) 0.05 H Absolute Neuts (auto) 8.1 Absolute Nucleated RBC 0.000 Nucleated RBC % (auto) 0.0 Sodium 139 Potassium 3.9 Chloride 106 Carbon Dioxide 22 Anion Gap 15 BUN 11 Creatinine 1.15 Estim Creat Clear Calc 74.2 Estimated GFR > 60 POC Glucose Random Glucose 190 H Calcium 9.3 Magnesium 1.6 Total Bilirubin 0.3 AST 24 ALT 44 H Alkaline Phosphatase 103 Troponin I High Sens 4.0 Total Protein 7.3 Albumin 4.3 Lipase 33 Urine Color Urine Appearance Urine pH Ur Specific [place] Urine Protein Urine Glucose (UA) Urine Ketones Urine Blood Urine Nitrite Ur Leukocyte Esterase Urine RBC Urine WBC Ur Squamous Epith Cells Urine Bacteria Hyaline Casts Salicylates < 5.0 L Urine Opiates Screen Ur Buprenorphine Scrn Ur Oxycodone Screen Urine Methadone Screen Urine Fentanyl Screen Acetaminophen < 3 Ur Barbiturates Screen Ur Phencyclidine Scrn Ur Amphetamines Screen U Benzodiazepines Scrn Urine Cocaine Screen U Marijuana (THC) Screen Ethyl Alcohol < 10 08/03/24 08/04/24 08/04/24 23:49 01:46 07:34 WBC RBC Hgb Hct MCV MCH MCHC RDW Plt Count MPV Immature Gran % (Auto) Neut % (Auto) Lymph % (Auto) [place] % (Auto) Eos % (Auto) Baso % (Auto) Lymph # (Auto) [place] # (Auto) Eos # (Auto) Baso # (Auto) Abs Immat Gran (auto) Absolute Neuts (auto) Absolute Nucleated RBC Nucleated RBC % (auto) Sodium Potassium Chloride Carbon Dioxide Anion Gap BUN Creatinine Estim Creat Clear Calc Estimated GFR POC Glucose 220 H 95 Random Glucose Calcium Magnesium Total Bilirubin AST ALT Alkaline Phosphatase Troponin I High Sens Total Protein Albumin Lipase Urine Color Yellow Urine Appearance Clear Urine pH 5.5 Ur Specific [place] <= 1.005 Urine Protein Negative Urine Glucose (UA) Negative Urine Ketones Negative Urine Blood Trace H Urine Nitrite Negative Ur Leukocyte Esterase Negative Urine RBC 0-2 Urine WBC 0-5 Ur Squamous Epith Cells 0-2 Urine Bacteria None Seen Hyaline Casts 0-2 Salicylates Urine Opiates Screen Not Detected Ur Buprenorphine Scrn Not Detected Ur Oxycodone Screen Not Detected Urine Methadone Screen Not Detected Urine Fentanyl Screen Not Detected Acetaminophen Ur Barbiturates Screen Not Detected Ur Phencyclidine Scrn Not Detected Ur Amphetamines Screen Not Detected U Benzodiazepines Scrn Not Detected Urine Cocaine Screen Not Detected U Marijuana (THC) Screen Not Detected Ethyl Alcohol 08/04/24 08/04/24 08/04/24 13:18 16:35 22:42 WBC RBC Hgb Hct MCV MCH MCHC RDW Plt Count MPV Immature Gran % (Auto) Neut % (Auto) Lymph % (Auto) [place] % (Auto) Eos % (Auto) Baso % (Auto) Lymph # (Auto) [place] # (Auto) Eos # (Auto) Baso # (Auto) Abs Immat Gran (auto) Absolute Neuts (auto) Absolute Nucleated RBC Nucleated RBC % (auto) Sodium Potassium Chloride Carbon Dioxide Anion Gap BUN Creatinine Estim Creat Clear Calc Estimated GFR POC Glucose 101 175 H 162 H Random Glucose Calcium Magnesium Total Bilirubin AST ALT Alkaline Phosphatase Troponin I High Sens Total Protein Albumin Lipase Urine Color Urine Appearance Urine pH Ur Specific [place] Urine Protein Urine Glucose (UA) Urine Ketones Urine Blood Urine Nitrite Ur Leukocyte Esterase Urine RBC Urine WBC Ur Squamous Epith Cells Urine Bacteria Hyaline Casts Salicylates Urine Opiates Screen Ur Buprenorphine Scrn Ur Oxycodone Screen Urine Methadone Screen Urine Fentanyl Screen Acetaminophen Ur Barbiturates Screen Ur Phencyclidine Scrn Ur Amphetamines Screen U Benzodiazepines Scrn Urine Cocaine Screen U Marijuana (THC) Screen Ethyl Alcohol 08/05/24 08/05/24 08/05/24 07:48 12:29 12:50 WBC RBC Hgb Hct MCV MCH MCHC RDW Plt Count MPV Immature Gran % (Auto) Neut % (Auto) Lymph % (Auto) [place] % (Auto) Eos % (Auto) Baso % (Auto) Lymph # (Auto) [place] # (Auto) Eos # (Auto) Baso # (Auto) Abs Immat Gran (auto) Absolute Neuts (auto) Absolute Nucleated RBC Nucleated RBC % (auto) Sodium 142 Potassium 4.3 Chloride 102 Carbon Dioxide 26 Anion Gap 18 BUN 16 Creatinine 1.16 Estim Creat Clear Calc 73.6 Estimated GFR > 60 POC Glucose 276 H 111 Random Glucose 134 H Calcium 10.8 H D Magnesium Total Bilirubin 0.4 AST 24 ALT 42 H Alkaline Phosphatase Troponin I High Sens Total Protein 8.6 H Albumin 5.0 Lipase Urine Color Urine Appearance Urine pH Ur Specific [place] Urine Protein Urine Glucose (UA) Urine Ketones Urine Blood Urine Nitrite Ur Leukocyte Esterase Urine RBC Urine WBC Ur Squamous Epith Cells Urine Bacteria Hyaline Casts Salicylates Urine Opiates Screen Ur Buprenorphine Scrn Ur Oxycodone Screen Urine Methadone Screen Urine Fentanyl Screen Acetaminophen Ur Barbiturates Screen Ur Phencyclidine Scrn Ur Amphetamines Screen U Benzodiazepines Scrn Urine Cocaine Screen U Marijuana (THC) Screen Ethyl Alcohol Meds/Allergies Meds Home Medications ?Medication ?Instructions ?Recorded ?Confirmed ?Type ascorbic acid (vitamin C) 500 mg 1 tab PO DAILY 03/02/20 08/04/24 History tablet (Vitamin C) cholecalciferol (vitamin D3) 25 1 cap PO DAILY 03/02/20 08/04/24 History mcg (1,000 unit) capsule (Vitamin D3) clozapine 100 mg tablet 300 mg PO BEDTIME 03/02/20 08/04/24 History clozapine 50 mg tablet 50 mg PO DAILY 03/02/20 08/04/24 History fluticasone propionate 50 1 spray intranasal BID 03/02/20 08/04/24 History mcg/actuation nasal spray,suspension haloperidol 5 mg tablet 5 mg PO BEDTIME 03/02/20 08/04/24 History metformin 1,000 mg tablet 1 tab PO BID 03/02/20 08/04/24 History multivitamin 1 tab PO DAILY 03/02/20 08/04/24 History sertraline 100 mg tablet 1.5 tab PO DAILY 03/02/20 08/04/24 History simvastatin 80 mg tablet 1 tab PO DAILY 03/02/20 08/04/24 History allopurinol 100 mg tablet 100 mg PO DAILY 06/09/20 08/04/24 History apixaban 2.5 mg tablet (Eliquis) 2.5 mg PO BID 07/02/23 08/04/24 History clonazepam 1 mg tablet 0.5 mg PO BID 07/02/23 08/04/24 History benztropine 1 mg tablet 1 mg PO BID 08/04/24 08/04/24 History Allergies Allergies Allergy/AdvReac Type Severity Reaction Status Date / Time Penicillins [PENICILLINS] Allergy Unknown Unknown Verified 08/03/24 19:08 Mental Status Exam Mental Status Exam Narrative: Pt is alert and oriented; behavior is cooperative, friendly and calm; dressed in casual attire; mood is described as anxious ; eye contact appropriate; Speech is normal rate, volume and not pressured, delayed responses at times; thought process is organized; some confusion at times; otherwise pertinent to relevant topics and without any delusional content, paranoid ideations or grandiosity; denies SI/HI/VH. Patient reports auditory hallucinations of whispers . Assessment & Plan Assessment & Plan (1) Schizoaffective disorder: Status: Acute Code(s): F25.9 - Schizoaffective disorder, unspecified (2) PTSD (post-traumatic stress disorder): Status: Acute Code(s): F43.10 - Post-traumatic stress disorder, unspecified (3) Intellectual disability: Status: Acute Code(s): F79 - Unspecified intellectual disabilities Plan Patient is a 49-year-old male with history of schizoaffective disorder, PTSD and intellectual disability who arrived to ER via ambulance from his adult foster fdc due to his family feeling that he was not acting himself. Plan: CV 15 minute safety checks Continue home medications Obtain collateral Encourage groups Discharge planning Patient educated on: diagnosis and medication risk/benefits Reason for continued inpatient stay Substantial Risk for: med/psych decompensation Statement Statement: I have reviewed the history and physical and performed a pertinent examination on my patient. No changes have occurred unless specified. If the History and Physical was not performed prior to admission, the Hospitalist's service will be consulted for completing the admission physical. Time Spent With Patient Time: Total time managing care of this patient today _60___ minutes.
--- NOTE | 2024-08-05 15:49 | PC.ADMIT ---
Nursing admission note: 49 year old male DX: Unspecified psychosis. Referred for treatment by CARE team. Signed conditional voluntary for admission. Patient arrived to ED via ambulance, from his adult foster [facility] as his family felt he was not himself . He had not been responding to his caregivers as typical. He had appeared anxious, withdrawn and would not engage in conversation. Patient lives with Adult Foster. States he does not like his foster mcc. Patient has documented history of schizoaffective disorder, schizophrenia and PTSD. Patient with ID, had been in special education. Patient calm and cooperative with admission process. Pleasant on approach. Full range of affect, good attn to ADL. Delayed responses often responding with I can't remember . Patient endorses a little anxiety , denies depression or sadness, denies SI/HI plan or intent. Reports +AH, they come and go . Denies they are command in nature, states they sound like whispers. Denies sleep or appetite disturbances. Medical history includes IDDM, Gout, Hyperlipidemia, hypercholesteremina, urinary retention, constipation and history of saddle pulmonary embolus. Patient oriented to unit, placed on unit safety checks. See nursing assessment/crisis evaluation for further details.
[2024-08-05 17:04] LABS: Glucose, Whole Blood 172 mg/dL (60-115)
[2024-08-05 17:22] LABS: Alkaline Phosphatase 115 U/L (39-117)
[2024-08-05 20:00] VITALS: BP 164/86; PULSE 108; RESP 16; TEMP 36.6; O2SAT 100
[2024-08-05 20:58] LABS: Glucose, Whole Blood 166 mg/dL (60-115)
[2024-08-05] MEDS: Insulin Glargine,Hum.rec.anlog 100 UNIT/ML 10 ML VIAL 46 UNIT SUBCUT (21:03)
[2024-08-05] MEDS: HaloperidoL 5 MG TABLET PO (21:04)
[2024-08-05] MEDS: cloZAPine 100 MG TABLET 300 MG PO (21:04)
[2024-08-06 07:30] VITALS: BP 121/84; PULSE 97; RESP 16; TEMP 36.5; O2SAT 95
[2024-08-06 07:42] LABS: Glucose, Whole Blood 155 mg/dL (60-115)
[2024-08-06] MEDS: Sertraline HCL 50 MG TABLET 150 MG PO (08:51)
[2024-08-06] MEDS: Benztropine Mesylate 1 MG TABLET PO ×2 (08:52→20:32)
[2024-08-06] MEDS: clonazePAM 0.5 MG TABLET PO ×2 (08:52→20:32)
[2024-08-06] MEDS: Atorvastatin Calcium 40 MG TABLET PO (08:52)
[2024-08-06] MEDS: allopurinoL 100 MG TABLET 200 MG PO (08:53)
[2024-08-06] MEDS: metFORMIN HCl 1,000 MG TABLET 1000 MG PO ×2 (08:54→17:06)
[2024-08-06] MEDS: Multivitamin TABLET 1 TAB PO (08:54)
[2024-08-06] MEDS: Apixaban 2.5 MG TABLET PO ×2 (08:54→20:32)
[2024-08-06] MEDS: cloZAPine 25 MG TABLET 50 MG PO (08:55)
[2024-08-06] MEDS: Cholecalciferol (Vitamin D3) 25 MCG TABLET PO (08:55)
[2024-08-06] MEDS: Ascorbic Acid 500 MG TABLET PO (08:55)
[2024-08-06] MEDS: Fluticasone Propionate Nasal 16 GM SPRAY 1 SPRAY NOSTRIL-B (08:56)
[2024-08-06 09:18] LABS: Cholesterol 132 mg/dL (<200); HDL Cholesterol 42 mg/dL (>40); LDL Cholesterol Calculated 46 mg/dL (<100); Triglycerides 222 mg/dL (<150)
[2024-08-06 09:34] LABS: Estimated Average Glucose 237 mg/dL; Hemoglobin A1C 323.3983 umol/L; Hemoglobin A1c % 9.9 % (<6.0); Total Hemoglobin (HGBA1C) 3840.9422 umol/L
--- NOTE | 2024-08-06 09:44 | HO.PSYCHPN ---
Subjective Subjective Date of Service: 08/06/24 Reason For Visit: altered mental status Subjective Notes: Conditional Voluntary Interim History: Bright. smiling during assessment. Patient reports feeling a lot better than yesterday ; pt stated, I feel good after getting some sleep. I haven't had any voices today . denies SI/HI/VH/AH. Patient reports he would like to be discharged at the end of the week if he continues to improve. Medication Compliance: Yes Side effects from medications: No Attending Groups: Yes Mental Status Exam Mental Status Exam Narrative: Pt is alert and oriented; behavior is cooperative, friendly and calm; dressed in casual attire; mood is described as good ; eye contact appropriate; Speech is normal rate, volume and not pressured, delayed responses at times; thought process is organized; some confusion at times; denies SI/HI/VH/AH. Diagnostics Vital Signs (24Hr): Vital Signs - 24 hr 08/05/24 20:00 08/06/24 07:30 Temperature 97.9 F 97.7 F Pulse Rate 108 H 97 Respiratory Rate 16 16 Blood Pressure 164/86 H 121/84 Pulse Oximetry 100 95 Oxygen Delivery Method Room Air Room Air BMI result Body Mass Index 24.6 Labs 08/03/24 19:10 08/05/24 12:50 Labs: Laboratory Results - last 48 hr 08/04/24 08/04/24 08/04/24 13:18 16:35 22:42 Sodium Potassium Chloride Carbon Dioxide Anion Gap BUN Creatinine Estim Creat Clear Calc Estimated GFR POC Glucose 101 175 H 162 H Random Glucose Estimat Average Glucose Hemoglobin A1c % Calcium Total Bilirubin AST ALT Alkaline Phosphatase Total Protein Albumin Triglycerides Cholesterol LDL Cholesterol, Calc HDL Cholesterol 08/05/24 08/05/24 08/05/24 07:48 12:29 12:50 Sodium 142 Potassium 4.3 Chloride 102 Carbon Dioxide 26 Anion Gap 18 BUN 16 Creatinine 1.16 Estim Creat Clear Calc 73.6 Estimated GFR > 60 POC Glucose 276 H 111 Random Glucose 134 H Estimat Average Glucose Hemoglobin A1c % Calcium 10.8 H D Total Bilirubin 0.4 AST 24 ALT 42 H Alkaline Phosphatase 115 Total Protein 8.6 H Albumin 5.0 Triglycerides Cholesterol LDL Cholesterol, Calc HDL Cholesterol 08/05/24 08/05/24 08/06/24 16:57 20:54 07:32 Sodium Potassium Chloride Carbon Dioxide Anion Gap BUN Creatinine Estim Creat Clear Calc Estimated GFR POC Glucose 172 H 166 H 155 H Random Glucose Estimat Average Glucose Hemoglobin A1c % Calcium Total Bilirubin AST ALT Alkaline Phosphatase Total Protein Albumin Triglycerides Cholesterol LDL Cholesterol, Calc HDL Cholesterol 08/06/24 08/06/24 08:43 08:44 Sodium Potassium Chloride Carbon Dioxide Anion Gap BUN Creatinine Estim Creat Clear Calc Estimated GFR POC Glucose Random Glucose Estimat Average Glucose 237 Hemoglobin A1c % 9.9 H Calcium Total Bilirubin AST ALT Alkaline Phosphatase Total Protein Albumin Triglycerides 222 H Cholesterol 132 LDL Cholesterol, Calc 46 HDL Cholesterol 42 Medications Medications Current Medications Acetaminophen (Acetaminophen 325 Mg Tablet) 650 mg PO Q6H PRN PRN Reason: Headache/Pain, Scale 1-10 Al Hydroxide/Mg Hydroxide (Magnesium Hydrox/Alum Hydrox 30 Ml Oral.Susp) 30 ml PO Q6H PRN PRN Reason: Heartburn/Nausea Allopurinol (Allopurinol 100 Mg Tablet) 200 mg PO DAILY [facility] Last Admin: 08/06/24 08:53 Dose: 200 mg Apixaban (Apixaban 2.5 Mg Tablet) 2.5 mg PO BID [facility] Last Admin: 08/06/24 08:54 Dose: 2.5 mg Ascorbic Acid (Ascorbic Acid 500 Mg Tablet) 500 mg PO DAILY [facility] [place] Last Admin: 08/06/24 08:55 Dose: 500 mg Atorvastatin Calcium (Atorvastatin Calcium 40 Mg Tablet) 40 mg PO DAILY [facility] [place] Last Admin: 08/06/24 08:52 Dose: 40 mg Benztropine Mesylate (Benztropine Mesylate 1 Mg Tablet) 1 mg PO BID [facility] [place] Last Admin: 08/06/24 08:52 Dose: 1 mg Clonazepam (Clonazepam 0.5 Mg Tablet) 0.5 mg PO BID [facility] [place] Last Admin: 08/06/24 08:52 Dose: 0.5 mg Clozapine (Clozapine 25 Mg Tablet) 50 mg PO DAILY [facility] Last Admin: 08/06/24 08:55 Dose: 50 mg Clozapine (Clozapine 100 Mg Tablet) 300 mg PO BEDTIME [facility] Last Admin: 08/05/24 21:04 Dose: 300 mg Fluticasone Propionate (Fluticasone Propionate Nasal 16 Gm [place]) 1 spray NOSTRIL-B BID [facility] [place] Last Admin: 08/06/24 08:56 Dose: 1 spray Haloperidol (Haloperidol 5 Mg Tablet) 5 mg PO BEDTIME [facility] Last Admin: 08/05/24 21:04 Dose: 5 mg Hydroxyzine HCl (Hydroxyzine Hcl 25 Mg Tablet) 25 mg PO Q6H PRN PRN Reason: mild anxiety Insulin Glargine (Insulin Glargine,Hum.Rec.Anlog 100 Unit/Ml 10 Ml Vial) 46 unit SUBCUT BEDTIME [facility] [place] Last Admin: 08/05/24 21:03 Dose: 46 unit Magnesium Hydroxide (Milk Of Magnesia 30 Ml Oral.Susp) 30 ml PO DAILY PRN PRN Reason: Constipation Metformin HCl (Metformin Hcl 1,000 Mg Tablet) 1,000 mg PO BIDWM [facility] [place] Last Admin: 08/06/24 08:54 Dose: 1,000 mg Multivitamins/Vitamin C (Multivitamin Tablet) 1 tab PO DAILY [facility] [place] Last Admin: 08/06/24 08:54 Dose: 1 tab Nicotine Polacrilex (Nicotine Polacrilex 2 Mg Gum) 4 mg BUCCAL Q2H PRN PRN Reason: Nicotine Cravings Sertraline HCl (Sertraline Hcl 50 Mg Tablet) 150 mg PO DAILY [facility] [place] Last Admin: 08/06/24 08:51 Dose: 150 mg Trazodone HCl (Trazodone Hcl 50 Mg Tablet) 50 mg PO BEDTIME [id number] PRN PRN Reason: Insomnia Vitamin D (Cholecalciferol (Vitamin D3) 25 Mcg Tablet) 25 mcg PO DAILY [facility] [place] Last Admin: 08/06/24 08:55 Dose: 25 mcg Allergies Allergies Allergy/AdvReac Type Severity Reaction Status Date / Time Penicillins [PENICILLINS] Allergy Unknown Unknown Verified 08/03/24 19:08 Assessment & Plan Assessment & Plan (1) Schizoaffective disorder: Status: Acute Code(s): F25.9 - Schizoaffective disorder, unspecified (2) PTSD (post-traumatic stress disorder): Status: Acute Code(s): F43.10 - Post-traumatic stress disorder, unspecified (3) Intellectual disability: Status: Acute Code(s): F79 - Unspecified intellectual disabilities Plan Patient is a 49-year-old male with history of schizoaffective disorder, PTSD and intellectual disability who arrived to ER via ambulance from his adult foster group home due to his family feeling that he was not acting himself. Plan: CV 15 minute safety checks Continue home medications Obtain collateral Encourage groups Discharge planning 08/06: Bright. smiling during assessment. Patient reports feeling a lot better than yesterday ; pt stated, I feel good after getting some sleep. I haven't had any voices today . denies SI/HI/VH/AH. Patient reports he would like to be discharged at the end of the week if he continues to improve. Continue current tx plan. Patient educated on: diagnosis, medication risk/benefits and therapeutic strategies Reason for continued inpatient stay Substantial Risk for: med/psych decompensation Time Spent With Patient Time: Total time managing care of this patient today _20___ minutes.
[2024-08-06 17:00] LABS: Glucose, Whole Blood 136 mg/dL (60-115)
[2024-08-06 19:27] VITALS: BP 127/82; PULSE 114; RESP 16; TEMP 36.3; O2SAT 99
[2024-08-06 20:20] LABS: Glucose, Whole Blood 154 mg/dL (60-115)
[2024-08-06] MEDS: cloZAPine 100 MG TABLET 300 MG PO (20:32)
[2024-08-06] MEDS: HaloperidoL 5 MG TABLET PO (20:32)
[2024-08-06] MEDS: Insulin Lispro 100 UNIT/ML 3 ML VIAL SUBCUT (20:38)
[2024-08-06] MEDS: Insulin Glargine,Hum.rec.anlog 100 UNIT/ML 10 ML VIAL 46 UNIT SUBCUT (20:38)
[2024-08-07 07:00] VITALS: BMI 24.7
[2024-08-07 07:53] VITALS: BP 109/68; PULSE 87; RESP 16; TEMP 36.4; O2SAT 95
[2024-08-07 07:56] LABS: Glucose, Whole Blood 156 mg/dL (60-115)
[2024-08-07] MEDS: Cholecalciferol (Vitamin D3) 25 MCG TABLET PO (08:28)
[2024-08-07] MEDS: allopurinoL 100 MG TABLET 200 MG PO (08:29)
[2024-08-07] MEDS: clonazePAM 0.5 MG TABLET PO ×2 (08:29→22:08)
[2024-08-07] MEDS: Atorvastatin Calcium 40 MG TABLET PO (08:29)
[2024-08-07] MEDS: metFORMIN HCl 1,000 MG TABLET 1000 MG PO ×2 (08:30→17:08)
[2024-08-07] MEDS: Sertraline HCL 50 MG TABLET 150 MG PO (08:30)
[2024-08-07] MEDS: Multivitamin TABLET 1 TAB PO (08:30)
[2024-08-07] MEDS: Ascorbic Acid 500 MG TABLET PO (08:30)
[2024-08-07] MEDS: Apixaban 2.5 MG TABLET PO ×2 (08:31→22:08)
[2024-08-07] MEDS: cloZAPine 25 MG TABLET 50 MG PO (08:31)
[2024-08-07] MEDS: Benztropine Mesylate 1 MG TABLET PO ×2 (08:31→22:08)
[2024-08-07] MEDS: Insulin Lispro 100 UNIT/ML 3 ML VIAL SUBCUT ×3 (08:33→22:12)
[2024-08-07] MEDS: Fluticasone Propionate Nasal 16 GM SPRAY 1 SPRAY NOSTRIL-B ×2 (08:40→22:07)
--- NOTE | 2024-08-07 10:44 | P.PNPSI_ITS ---
Subjective Subjective Date of Service: 08/08/24 Reason For Visit: altered mental status Interim History: calm, cooperative. no complaints. feeling well, no safety concerns. per staff, i feel really good. cheerful. taking meds. no AH. slept more than 9 hours. Mental Status Exam Mental Status Exam Narrative: Pt is alert and oriented; behavior is cooperative, friendly and calm; dressed in casual attire; mood is described as good ; eye contact appropriate; Speech is normal rate, volume and not pressured, delayed responses at times; thought process is organized; some confusion at times; denies SI/HI/VH/AH. Diagnostics Vital Signs (24Hr): Vital Signs - 24 hr 08/06/24 19:27 08/07/24 07:53 Temperature 97.4 F 97.5 F Pulse Rate 114 H 87 Respiratory Rate 16 16 Blood Pressure 127/82 109/68 Pulse Oximetry 99 95 Oxygen Delivery Method Room Air Room Air BMI result Body Mass Index 24.6 Labs 08/03/24 19:10 08/05/24 12:50 Labs: Laboratory Results - last 48 hr 08/05/24 08/05/24 08/05/24 12:29 12:50 16:57 Sodium 142 Potassium 4.3 Chloride 102 Carbon Dioxide 26 Anion Gap 18 BUN 16 Creatinine 1.16 Estim Creat Clear Calc 73.6 Estimated GFR > 60 POC Glucose 111 172 H Random Glucose 134 H Estimat Average Glucose Hemoglobin A1c % Calcium 10.8 H D Total Bilirubin 0.4 AST 24 ALT 42 H Alkaline Phosphatase 115 Total Protein 8.6 H Albumin 5.0 Triglycerides Cholesterol LDL Cholesterol, Calc HDL Cholesterol 08/05/24 08/06/24 08/06/24 20:54 07:32 08:43 Sodium Potassium Chloride Carbon Dioxide Anion Gap BUN Creatinine Estim Creat Clear Calc Estimated GFR POC Glucose 166 H 155 H Random Glucose Estimat Average Glucose Hemoglobin A1c % Calcium Total Bilirubin AST ALT Alkaline Phosphatase Total Protein Albumin Triglycerides 222 H Cholesterol 132 LDL Cholesterol, Calc 46 HDL Cholesterol 42 08/06/24 08/06/24 08/06/24 08:44 16:54 20:14 Sodium Potassium Chloride Carbon Dioxide Anion Gap BUN Creatinine Estim Creat Clear Calc Estimated GFR POC Glucose 136 H 154 H Random Glucose Estimat Average Glucose 237 Hemoglobin A1c % 9.9 H Calcium Total Bilirubin AST ALT Alkaline Phosphatase Total Protein Albumin Triglycerides Cholesterol LDL Cholesterol, Calc HDL Cholesterol 08/07/24 07:51 Sodium Potassium Chloride Carbon Dioxide Anion Gap BUN Creatinine Estim Creat Clear Calc Estimated GFR POC Glucose 156 H Random Glucose Estimat Average Glucose Hemoglobin A1c % Calcium Total Bilirubin AST ALT Alkaline Phosphatase Total Protein Albumin Triglycerides Cholesterol LDL Cholesterol, Calc HDL Cholesterol Medications Medications Current Medications Acetaminophen (Acetaminophen 325 Mg Tablet) 650 mg PO Q6H PRN PRN Reason: Headache/Pain, Scale 1-10 Al Hydroxide/Mg Hydroxide (Magnesium Hydrox/Alum Hydrox 30 Ml Oral.Susp) 30 ml PO Q6H PRN PRN Reason: Heartburn/Nausea Allopurinol (Allopurinol 100 Mg Tablet) 200 mg PO DAILY [facility] Last Admin: 08/07/24 08:29 Dose: 200 mg Apixaban (Apixaban 2.5 Mg Tablet) 2.5 mg PO BID [facility] Last Admin: 08/07/24 08:31 Dose: 2.5 mg Ascorbic Acid (Ascorbic Acid 500 Mg Tablet) 500 mg PO DAILY [facility] Last Admin: 08/07/24 08:30 Dose: 500 mg Atorvastatin Calcium (Atorvastatin Calcium 40 Mg Tablet) 40 mg PO DAILY [facility] Last Admin: 08/07/24 08:29 Dose: 40 mg Benztropine Mesylate (Benztropine Mesylate 1 Mg Tablet) 1 mg PO BID [facility] Last Admin: 08/07/24 08:31 Dose: 1 mg Clonazepam (Clonazepam 0.5 Mg Tablet) 0.5 mg PO BID [facility] Last Admin: 08/07/24 08:29 Dose: 0.5 mg Clozapine (Clozapine 25 Mg Tablet) 50 mg PO DAILY [facility] Last Admin: 08/07/24 08:31 Dose: 50 mg Clozapine (Clozapine 100 Mg Tablet) 300 mg PO BEDTIME [facility] Last Admin: 08/06/24 20:32 Dose: 300 mg Fluticasone Propionate (Fluticasone Propionate Nasal 16 Gm Salvo) 1 spray NOSTRIL-B BID [facility] Last Admin: 08/07/24 08:40 Dose: 1 spray Haloperidol (Haloperidol 5 Mg Tablet) 5 mg PO BEDTIME [facility] Last Admin: 08/06/24 20:32 Dose: 5 mg Hydroxyzine HCl (Hydroxyzine Hcl 25 Mg Tablet) 25 mg PO Q6H PRN PRN Reason: mild anxiety Insulin Glargine (Insulin Glargine,Hum.Rec.Anlog 100 Unit/Ml 10 Ml Vial) 46 unit SUBCUT BEDTIME [facility] Last Admin: 08/06/24 20:38 Dose: 46 unit Insulin Human Lispro (Insulin Lispro 100 Unit/Ml 3 Ml Vial) 0 unit SUBCUT QIDACHS [facility]; Protocol Last Admin: 08/07/24 08:33 Dose: 2 unit Magnesium Hydroxide (Milk Of Magnesia 30 Ml Oral.Susp) 30 ml PO DAILY PRN PRN Reason: Constipation Metformin HCl (Metformin Hcl 1,000 Mg Tablet) 1,000 mg PO BIDWM [facility] Last Admin: 08/07/24 08:30 Dose: 1,000 mg Multivitamins/Vitamin C (Multivitamin Tablet) 1 tab PO DAILY [facility] Last Admin: 08/07/24 08:30 Dose: 1 tab Nicotine Polacrilex (Nicotine Polacrilex 2 Mg Gum) 4 mg BUCCAL Q2H PRN PRN Reason: Nicotine Cravings Sertraline HCl (Sertraline Hcl 50 Mg Tablet) 150 mg PO DAILY [facility] Last Admin: 08/07/24 08:30 Dose: 150 mg Trazodone HCl (Trazodone Hcl 50 Mg Tablet) 50 mg PO BEDTIME MRX1 PRN PRN Reason: Insomnia Vitamin D (Cholecalciferol (Vitamin D3) 25 Mcg Tablet) 25 mcg PO DAILY [facility] Last Admin: 08/07/24 08:28 Dose: 25 mcg Allergies Allergies Allergy/AdvReac Type Severity Reaction Status Date / Time Penicillins [PENICILLINS] Allergy Unknown Unknown Verified 08/03/24 19:08 Assessment & Plan Assessment & Plan (1) Schizoaffective disorder: Status: Acute Code(s): F25.9 - Schizoaffective disorder, unspecified (2) PTSD (post-traumatic stress disorder): Status: Acute Code(s): F43.10 - Post-traumatic stress disorder, unspecified (3) Intellectual disability: Status: Acute Code(s): F79 - Unspecified intellectual disabilities Plan Patient is a 49-year-old male with history of schizoaffective disorder, PTSD and intellectual disability who arrived to ER via ambulance from his adult foster [facility] due to his family feeling that he was not acting himself. Plan: CV 15 minute safety checks Continue home medications Obtain collateral Encourage groups Discharge planning 08/06: Bright. smiling during assessment. Patient reports feeling a lot better than yesterday ; pt stated, I feel good after getting some sleep. I haven't had any voices today . denies SI/HI/VH/AH. Patient reports he would like to be discharged at the end of the week if he continues to improve. Continue current tx plan. 08/07: calm, cooperative, pleasant. denies any safety concerns, reports he is in a good mood. per staff, cheerful on the unit. discharge to home tomorrow. MYCHAL Luu and met with pt's mother for family mtg today. Reason for continued inpatient stay Substantial Risk for: stable for discharge Time Spent With Patient Time: Total time managing care of this patient today __35__ minutes.
[2024-08-07 11:51] LABS: Glucose, Whole Blood 135 mg/dL (60-115)
[2024-08-07 16:43] LABS: Glucose, Whole Blood 198 mg/dL (60-115)
[2024-08-07 19:22] VITALS: BP 138/96; PULSE 108; RESP 16; TEMP 36.8; O2SAT 98
[2024-08-07 21:41] LABS: Glucose, Whole Blood 221 mg/dL (60-115)
[2024-08-07] MEDS: cloZAPine 100 MG TABLET 300 MG PO (22:08)
[2024-08-07] MEDS: HaloperidoL 5 MG TABLET PO (22:08)
[2024-08-07] MEDS: Insulin Glargine,Hum.rec.anlog 100 UNIT/ML 10 ML VIAL 46 UNIT SUBCUT (22:12)
[2024-08-08 07:33] VITALS: BP 127/86; PULSE 98; RESP 16; TEMP 37.1; O2SAT 98
[2024-08-08 07:51] LABS: Glucose, Whole Blood 143 mg/dL (60-115)
[2024-08-08] MEDS: Atorvastatin Calcium 40 MG TABLET PO (08:49)
[2024-08-08] MEDS: Multivitamin TABLET 1 TAB PO (08:50)
[2024-08-08] MEDS: cloZAPine 25 MG TABLET 50 MG PO (08:50)
[2024-08-08] MEDS: allopurinoL 100 MG TABLET 200 MG PO (08:50)
[2024-08-08] MEDS: Apixaban 2.5 MG TABLET PO (08:50)
[2024-08-08] MEDS: Cholecalciferol (Vitamin D3) 25 MCG TABLET PO (08:51)
[2024-08-08] MEDS: Benztropine Mesylate 1 MG TABLET PO (08:51)
[2024-08-08] MEDS: Ascorbic Acid 500 MG TABLET PO (08:51)
[2024-08-08] MEDS: Sertraline HCL 50 MG TABLET 150 MG PO (08:51)
[2024-08-08] MEDS: clonazePAM 0.5 MG TABLET PO (08:51)
[2024-08-08] MEDS: metFORMIN HCl 1,000 MG TABLET 1000 MG PO (08:52)
[2024-08-08] MEDS: Fluticasone Propionate Nasal 16 GM SPRAY 1 SPRAY NOSTRIL-B (08:54)
--- NOTE | 2024-08-08 09:23 | PM.PSYDC ---
DS: Providers Provider Date of Service: 08/08/24 Date of admission: 08/05/24 10:39 Date of discharge: 08/08/24 Primary care physician: Unknown Physician Admitting clinician: Terri Paiz Attending physician on admission: Daniele Young Attending physician on discharge: Daniele Young Discharging clinician: Terri Paiz DS: Diagnosis Discharge Diagnosis (1) Schizoaffective disorder: Status: Acute (2) PTSD (post-traumatic stress disorder): Status: Acute (3) Intellectual disability: Status: Acute DS: Medications Discharge Medications Home Medications: Home Medications ?Medication ?Instructions ?Recorded ?Confirmed ascorbic acid (vitamin C) 500 mg 1 tab PO DAILY 03/02/20 08/04/24 tablet (Vitamin C) cholecalciferol (vitamin D3) 25 1 cap PO DAILY 03/02/20 08/04/24 mcg (1,000 unit) capsule (Vitamin D3) clozapine 100 mg tablet 300 mg PO BEDTIME 03/02/20 08/04/24 clozapine 50 mg tablet 50 mg PO DAILY 03/02/20 08/04/24 fluticasone propionate 50 1 spray intranasal BID 03/02/20 08/04/24 mcg/actuation nasal spray,suspension haloperidol 5 mg tablet 5 mg PO BEDTIME 03/02/20 08/04/24 metformin 1,000 mg tablet 1 tab PO BID 03/02/20 08/04/24 multivitamin 1 tab PO DAILY 03/02/20 08/04/24 sertraline 100 mg tablet 1.5 tab PO DAILY 03/02/20 08/04/24 simvastatin 80 mg tablet 1 tab PO DAILY 03/02/20 08/04/24 allopurinol 100 mg tablet 100 mg PO DAILY 06/09/20 08/04/24 apixaban 2.5 mg tablet (Eliquis) 2.5 mg PO BID 07/02/23 08/04/24 clonazepam 1 mg tablet 0.5 mg PO BID 07/02/23 08/04/24 benztropine 1 mg tablet 1 mg PO BID 08/04/24 08/04/24 Previous Rx's ?Medication ?Instructions ?Recorded pen needle, diabetic 32 gauge x #200 ea 07/08/24 Basaglar KwblazePen U-100 Insulin 100 46 unit (0.46 mL) subcut QPM 90 07/15/24 unit/mL (3 mL) subcutaneous days #42 mL (insulin glargine) blood sugar diagnostic (FreeStyle #100 ea 07/15/24 Lite Strips) insulin aspart U-100 100 unit/mL 1 sliding scale dose subcut 07/15/24 (3 mL) subcutaneous pen (Novolog USEASDIRECTD 30 days #6 mL FlexPen U-100 Insulin aspart) lancets 28 gauge (FreeStyle #100 ea 07/16/24 Lancets) Mental Status Exam Mental Status Exam Narrative: Pt is alert and oriented; behavior is cooperative, friendly and calm; dressed in casual attire; mood is described as good ; eye contact appropriate; Speech is normal rate, volume and not pressured, delayed responses at times; thought process is organized; some confusion at times; denies SI/HI/VH/AH. Data Data Completed and Pending Completed studies during hospitalization [Text1]: 08/03/24 08/03/24 08/03/24 19:10 19:11 21:12 WBC 10.1 RBC 4.52 L Hgb 13.2 L Hct 38.5 L MCV 85.2 MCH 29.2 MCHC 34.3 RDW 13.5 Plt Count 190 MPV 10.5 Immature Gran % (Auto) 0.5 H Neut % (Auto) 80.8 H Lymph % (Auto) 12.4 L [place] % (Auto) 4.1 Eos % (Auto) 1.5 Baso % (Auto) 0.7 Lymph # (Auto) 1.3 [place] # (Auto) 0.4 Eos # (Auto) 0.2 Baso # (Auto) 0.1 Abs Immat Gran (auto) 0.05 H Absolute Neuts (auto) 8.1 Absolute Nucleated RBC 0.000 Nucleated RBC % (auto) 0.0 Sodium 139 Potassium 3.9 Chloride 106 Carbon Dioxide 22 Anion Gap 15 BUN 11 Creatinine 1.15 Estim Creat Clear Calc 74.2 Estimated GFR > 60 POC Glucose Random Glucose 190 H Estimat Average Glucose Hemoglobin A1c % Calcium 9.3 Magnesium 1.6 Total Bilirubin 0.3 AST 24 ALT 44 H Alkaline Phosphatase 103 Troponin I High Sens 4.0 Total Protein 7.3 Albumin 4.3 Triglycerides Cholesterol LDL Cholesterol, Calc HDL Cholesterol Lipase 33 Urine Color Urine Appearance Urine pH Ur Specific [place] Urine Protein Urine Glucose (UA) Urine Ketones Urine Blood Urine Nitrite Ur Leukocyte Esterase Urine RBC Urine WBC Ur Squamous Epith Cells Urine Bacteria Hyaline Casts Salicylates < 5.0 L Urine Opiates Screen Ur Buprenorphine Scrn Ur Oxycodone Screen Urine Methadone Screen Urine Fentanyl Screen Acetaminophen < 3 Ur Barbiturates Screen Ur Phencyclidine Scrn Ur Amphetamines Screen U Benzodiazepines Scrn Urine Cocaine Screen U Marijuana (THC) Screen Ethyl Alcohol < 10 08/03/24 08/04/24 08/04/24 23:49 01:46 07:34 WBC RBC Hgb Hct MCV MCH MCHC RDW Plt Count MPV Immature Gran % (Auto) Neut % (Auto) Lymph % (Auto) [place] % (Auto) Eos % (Auto) Baso % (Auto) Lymph # (Auto) [place] # (Auto) Eos # (Auto) Baso # (Auto) Abs Immat Gran (auto) Absolute Neuts (auto) Absolute Nucleated RBC Nucleated RBC % (auto) Sodium Potassium Chloride Carbon Dioxide Anion Gap BUN Creatinine Estim Creat Clear Calc Estimated GFR POC Glucose 220 H 95 Random Glucose Estimat Average Glucose Hemoglobin A1c % Calcium Magnesium Total Bilirubin AST ALT Alkaline Phosphatase Troponin I High Sens Total Protein Albumin Triglycerides Cholesterol LDL Cholesterol, Calc HDL Cholesterol Lipase Urine Color Yellow Urine Appearance Clear Urine pH 5.5 Ur Specific [place] <= 1.005 Urine Protein Negative Urine Glucose (UA) Negative Urine Ketones Negative Urine Blood Trace H Urine Nitrite Negative Ur Leukocyte Esterase Negative Urine RBC 0-2 Urine WBC 0-5 Ur Squamous Epith Cells 0-2 Urine Bacteria None Seen Hyaline Casts 0-2 Salicylates Urine Opiates Screen Not Detected Ur Buprenorphine Scrn Not Detected Ur Oxycodone Screen Not Detected Urine Methadone Screen Not Detected Urine Fentanyl Screen Not Detected Acetaminophen Ur Barbiturates Screen Not Detected Ur Phencyclidine Scrn Not Detected Ur Amphetamines Screen Not Detected U Benzodiazepines Scrn Not Detected Urine Cocaine Screen Not Detected U Marijuana (THC) Screen Not Detected Ethyl Alcohol 08/04/24 08/04/24 08/04/24 13:18 16:35 22:42 WBC RBC Hgb Hct MCV MCH MCHC RDW Plt Count MPV Immature Gran % (Auto) Neut % (Auto) Lymph % (Auto) [place] % (Auto) Eos % (Auto) Baso % (Auto) Lymph # (Auto) [place] # (Auto) Eos # (Auto) Baso # (Auto) Abs Immat Gran (auto) Absolute Neuts (auto) Absolute Nucleated RBC Nucleated RBC % (auto) Sodium Potassium Chloride Carbon Dioxide Anion Gap BUN Creatinine Estim Creat Clear Calc Estimated GFR POC Glucose 101 175 H 162 H Random Glucose Estimat Average Glucose Hemoglobin A1c % Calcium Magnesium Total Bilirubin AST ALT Alkaline Phosphatase Troponin I High Sens Total Protein Albumin Triglycerides Cholesterol LDL Cholesterol, Calc HDL Cholesterol Lipase Urine Color Urine Appearance Urine pH Ur Specific [place] Urine Protein Urine Glucose (UA) Urine Ketones Urine Blood Urine Nitrite Ur Leukocyte Esterase Urine RBC Urine WBC Ur Squamous Epith Cells Urine Bacteria Hyaline Casts Salicylates Urine Opiates Screen Ur Buprenorphine Scrn Ur Oxycodone Screen Urine Methadone Screen Urine Fentanyl Screen Acetaminophen Ur Barbiturates Screen Ur Phencyclidine Scrn Ur Amphetamines Screen U Benzodiazepines Scrn Urine Cocaine Screen U Marijuana (THC) Screen Ethyl Alcohol 08/05/24 08/05/24 08/05/24 07:48 12:29 12:50 WBC RBC Hgb Hct MCV MCH MCHC RDW Plt Count MPV Immature Gran % (Auto) Neut % (Auto) Lymph % (Auto) [place] % (Auto) Eos % (Auto) Baso % (Auto) Lymph # (Auto) [place] # (Auto) Eos # (Auto) Baso # (Auto) Abs Immat Gran (auto) Absolute Neuts (auto) Absolute Nucleated RBC Nucleated RBC % (auto) Sodium 142 Potassium 4.3 Chloride 102 Carbon Dioxide 26 Anion Gap 18 BUN 16 Creatinine 1.16 Estim Creat Clear Calc 73.6 Estimated GFR > 60 POC Glucose 276 H 111 Random Glucose 134 H Estimat Average Glucose Hemoglobin A1c % Calcium 10.8 H D Magnesium Total Bilirubin 0.4 AST 24 ALT 42 H Alkaline Phosphatase 115 Troponin I High Sens Total Protein 8.6 H Albumin 5.0 Triglycerides Cholesterol LDL Cholesterol, Calc HDL Cholesterol Lipase Urine Color Urine Appearance Urine pH Ur Specific [place] Urine Protein Urine Glucose (UA) Urine Ketones Urine Blood Urine Nitrite Ur Leukocyte Esterase Urine RBC Urine WBC Ur Squamous Epith Cells Urine Bacteria Hyaline Casts Salicylates Urine Opiates Screen Ur Buprenorphine Scrn Ur Oxycodone Screen Urine Methadone Screen Urine Fentanyl Screen Acetaminophen Ur Barbiturates Screen Ur Phencyclidine Scrn Ur Amphetamines Screen U Benzodiazepines Scrn Urine Cocaine Screen U Marijuana (THC) Screen Ethyl Alcohol 08/05/24 08/05/24 08/06/24 16:57 20:54 07:32 WBC RBC Hgb Hct MCV MCH MCHC RDW Plt Count MPV Immature Gran % (Auto) Neut % (Auto) Lymph % (Auto) [place] % (Auto) Eos % (Auto) Baso % (Auto) Lymph # (Auto) [place] # (Auto) Eos # (Auto) Baso # (Auto) Abs Immat Gran (auto) Absolute Neuts (auto) Absolute Nucleated RBC Nucleated RBC % (auto) Sodium Potassium Chloride Carbon Dioxide Anion Gap BUN Creatinine Estim Creat Clear Calc Estimated GFR POC Glucose 172 H 166 H 155 H Random Glucose Estimat Average Glucose Hemoglobin A1c % Calcium Magnesium Total Bilirubin AST ALT Alkaline Phosphatase Troponin I High Sens Total Protein Albumin Triglycerides Cholesterol LDL Cholesterol, Calc HDL Cholesterol Lipase Urine Color Urine Appearance Urine pH Ur Specific [place] Urine Protein Urine Glucose (UA) Urine Ketones Urine Blood Urine Nitrite Ur Leukocyte Esterase Urine RBC Urine WBC Ur Squamous Epith Cells Urine Bacteria Hyaline Casts Salicylates Urine Opiates Screen Ur Buprenorphine Scrn Ur Oxycodone Screen Urine Methadone Screen Urine Fentanyl Screen Acetaminophen Ur Barbiturates Screen Ur Phencyclidine Scrn Ur Amphetamines Screen U Benzodiazepines Scrn Urine Cocaine Screen U Marijuana (THC) Screen Ethyl Alcohol 08/06/24 08/06/24 08/06/24 08:43 08:44 16:54 WBC RBC Hgb Hct MCV MCH MCHC RDW Plt Count MPV Immature Gran % (Auto) Neut % (Auto) Lymph % (Auto) [place] % (Auto) Eos % (Auto) Baso % (Auto) Lymph # (Auto) [place] # (Auto) Eos # (Auto) Baso # (Auto) Abs Immat Gran (auto) Absolute Neuts (auto) Absolute Nucleated RBC Nucleated RBC % (auto) Sodium Potassium Chloride Carbon Dioxide Anion Gap BUN Creatinine Estim Creat Clear Calc Estimated GFR POC Glucose 136 H Random Glucose Estimat Average Glucose 237 Hemoglobin A1c % 9.9 H Calcium Magnesium Total Bilirubin AST ALT Alkaline Phosphatase Troponin I High Sens Total Protein Albumin Triglycerides 222 H Cholesterol 132 LDL Cholesterol, Calc 46 HDL Cholesterol 42 Lipase Urine Color Urine Appearance Urine pH Ur Specific [place] Urine Protein Urine Glucose (UA) Urine Ketones Urine Blood Urine Nitrite Ur Leukocyte Esterase Urine RBC Urine WBC Ur Squamous Epith Cells Urine Bacteria Hyaline Casts Salicylates Urine Opiates Screen Ur Buprenorphine Scrn Ur Oxycodone Screen Urine Methadone Screen Urine Fentanyl Screen Acetaminophen Ur Barbiturates Screen Ur Phencyclidine Scrn Ur Amphetamines Screen U Benzodiazepines Scrn Urine Cocaine Screen U Marijuana (THC) Screen Ethyl Alcohol 08/06/24 08/07/24 08/07/24 20:14 07:51 11:42 WBC RBC Hgb Hct MCV MCH MCHC RDW Plt Count MPV Immature Gran % (Auto) Neut % (Auto) Lymph % (Auto) [place] % (Auto) Eos % (Auto) Baso % (Auto) Lymph # (Auto) [place] # (Auto) Eos # (Auto) Baso # (Auto) Abs Immat Gran (auto) Absolute Neuts (auto) Absolute Nucleated RBC Nucleated RBC % (auto) Sodium Potassium Chloride Carbon Dioxide Anion Gap BUN Creatinine Estim Creat Clear Calc Estimated GFR POC Glucose 154 H 156 H 135 H Random Glucose Estimat Average Glucose Hemoglobin A1c % Calcium Magnesium Total Bilirubin AST ALT Alkaline Phosphatase Troponin I High Sens Total Protein Albumin Triglycerides Cholesterol LDL Cholesterol, Calc HDL Cholesterol Lipase Urine Color Urine Appearance Urine pH Ur Specific [place] Urine Protein Urine Glucose (UA) Urine Ketones Urine Blood Urine Nitrite Ur Leukocyte Esterase Urine RBC Urine WBC Ur Squamous Epith Cells Urine Bacteria Hyaline Casts Salicylates Urine Opiates Screen Ur Buprenorphine Scrn Ur Oxycodone Screen Urine Methadone Screen Urine Fentanyl Screen Acetaminophen Ur Barbiturates Screen Ur Phencyclidine Scrn Ur Amphetamines Screen U Benzodiazepines Scrn Urine Cocaine Screen U Marijuana (THC) Screen Ethyl Alcohol 08/07/24 08/07/24 08/08/24 16:34 21:37 07:36 WBC RBC Hgb Hct MCV MCH MCHC RDW Plt Count MPV Immature Gran % (Auto) Neut % (Auto) Lymph % (Auto) [place] % (Auto) Eos % (Auto) Baso % (Auto) Lymph # (Auto) [place] # (Auto) Eos # (Auto) Baso # (Auto) Abs Immat Gran (auto) Absolute Neuts (auto) Absolute Nucleated RBC Nucleated RBC % (auto) Sodium Potassium Chloride Carbon Dioxide Anion Gap BUN Creatinine Estim Creat Clear Calc Estimated GFR POC Glucose 198 H 221 H 143 H Random Glucose Estimat Average Glucose Hemoglobin A1c % Calcium Magnesium Total Bilirubin AST ALT Alkaline Phosphatase Troponin I High Sens Total Protein Albumin Triglycerides Cholesterol LDL Cholesterol, Calc HDL Cholesterol Lipase Urine Color Urine Appearance Urine pH Ur Specific [place] Urine Protein Urine Glucose (UA) Urine Ketones Urine Blood Urine Nitrite Ur Leukocyte Esterase Urine RBC Urine WBC Ur Squamous Epith Cells Urine Bacteria Hyaline Casts Salicylates Urine Opiates Screen Ur Buprenorphine Scrn Ur Oxycodone Screen Urine Methadone Screen Urine Fentanyl Screen Acetaminophen Ur Barbiturates Screen Ur Phencyclidine Scrn Ur Amphetamines Screen U Benzodiazepines Scrn Urine Cocaine Screen U Marijuana (THC) Screen Ethyl Alcohol DS: Summary Hospital Course Hospital Course: Patient is a 49-year-old male with history of schizoaffective disorder, PTSD and intellectual disability who arrived to ER via ambulance from his adult foster correction due to his family feeling that he was not acting himself. Per crisis report, patient been out with his mother all day and appeared to be at his baseline. During dinner that evening, he was not responding to his caregivers very little and appeared withdrawn and would not engage in conversation. Patient has a history of 2 inpatient psychiatric hospitalizations and 1 respite admission. Patient is medication compliant. No known history of substance use. Per collateral, there is no known precipitant for patient's presentation. Patient had pressured speech and unable to answer questions. He appeared internally preoccupied during assessment but denied VH/AH. Patient reports good sleep and appetite. Per collateral, patient does not experience auditory or visual hallucinations but does have memory issues and often stops mid sentence to gather his thoughts. During admission assessment, patient presents alert and oriented x3. Patient was able to understand reason for hospitalization and stated he was seeking treatment for his mental illness. Calm and cooperative. Patient reports feeling anxious ; patient reports difficulty answering questions at times due to auditory hallucinations. patient stated, I'm starting to hear them again. They come and go. They're whispers. I have had voices for awhile. My meds like the Clozaril make them better . Patient reports he does not know why he was not responding to his caregivers during dinner. He reports being medication compliant. Pt reports he does not like his current living situation because he feels the woman he lives with makes up lies about him and likes to start trouble . Patient denies any issues with sleep or eating. denies SI/HI/VH. Plan: CV 15 minute safety checks Continue home medications Obtain collateral Encourage groups Discharge planning 08/06: Bright. smiling during assessment. Patient reports feeling a lot better than yesterday ; pt stated, I feel good after getting some sleep. I haven't had any voices today . denies SI/HI/VH/AH. Patient reports he would like to be discharged at the end of the week if he continues to improve. Continue current tx plan. 08/07: calm, cooperative, pleasant. denies any safety concerns, reports he is in a good mood. per staff, cheerful on the unit. discharge to home tomorrow. MYCHAL Luu and met with pt's mother for family mtg today. Status at Discharge Cognitive/behavioral status at discharge: Patient has a safety plan that includes presenting to the closest ER or calling 911 if feeling unsafe. Functional status at discharge: independent ambulation Overall status at discharge: patient is back to baseline Time Spent with Patient Time attestation: Total time managing care of this patient today _20___ minutes. Time spent: Less than 30 minutes Discharge Plan Discharge Anticipated Discharge Date/Time: 08/08/24 11:00 Patient Disposition: Home, Self-Care Discharge Diagnosis: Intellectual Disability PTSD, Chronic Schizoaffective Disorder Referrals: Dr. Naima Ahn (Psychiatry) [Other] - 09/02/24 8:00 am (IN OFFICE APPOINTMENT) Chana Conklin (Therapy) [Other] - 08/12/24 4:00 pm (IN OFFICE APPOINTMENT) [facility] [Provider Group] - 1 Week (08-07-24 [facility] was added to patients chart. Please call [phone] to schedule your follow up appt within 7-10 days of discharge.) Discharge Medications: Continued (DME) FreeStyle Lite Strips Strip See Rx Instructions .Route Qty: 100 4RF Rx Instructions: As directed tests 3X day (DME) lancets [FreeStyle Lancets] 28 gauge misc See Rx Instructions .ROUTE .MEDSUPPLY Qty: 100 1RF Rx Instructions: 3 times a day prn sensor failure or to confirm glucose dispense as 33 guage if available multivitamin Tablet 1 tab PO DAILY haloperidol 5 mg Tablet 5 mg PO BEDTIME clozapine 100 mg tablet 300 mg PO BEDTIME sertraline 100 mg tablet 1.5 tab PO DAILY simvastatin 80 mg tablet 1 tab PO DAILY ascorbic acid (vitamin C) [Vitamin C] 500 mg tablet 1 tab PO DAILY metformin 1,000 mg tablet 1 tab PO BID fluticasone propionate 50 mcg/actuation spray,suspension 1 spray intranasal BID cholecalciferol (vitamin D3) [Vitamin D3] 25 mcg (1,000 unit) capsule 1 cap PO DAILY clozapine 50 mg Tablet 50 mg PO DAILY benztropine 1 mg tablet 1 mg PO BID clonazepam 1 mg tablet 0.5 mg PO BID Eliquis 2.5 mg tablet 2.5 mg PO BID allopurinol 100 mg tablet 100 mg PO DAILY (DME) pen needle, diabetic 32 gauge x / needle See Rx Instructions .ROUTE .MEDSUPPLY Qty: 200 6RF Rx Instructions: qid insulin glargine [Basaglar KwikPen U-100 Insulin] 100 unit/mL (3 mL) insulin pen 46 unit subcut QPM 90 Days Qty: 42 4RF insulin aspart U-100 [Novolog FlexPen U-100 Insulin] 100 unit/mL (3 mL) insulin pen 1 sliding scale dose subcut USEASDIRECTD 30 Days Qty: 6 3RF Rx Instructions: 80-150 4 units 151-200 6 units 201-250 8 units 251-300 10 units 301-350 12 units over 350 14 units Discharge Orders: Discharge Order (Routine); Ordered 08/08/24 Ordered By: Jose Miguel Faustin Diet: Diabetic diet Activity on Discharge: As tolerated Stand Alone Forms: Patient Portal Discharge page, Community Support Print Language: Kiswahili Care Plan Goals: remain safe and stable in the outpatient treatment setting Health Concerns: DM Plan of Treatment: take medications as prescribed, attend appointments as scheduled Assessment: not at imminent risk of harm to self or others Discharge Date/Time: 08/08/24 11:00
== END 2024-08-08 11:00 | disposition home or self-care (01) | DRG 885 ==
LOC: HO.ED 08-04 08:04 → HO.PADLT16 08-05 10:48
PROVIDERS: Physician Assistant Medical; Admitting Provider Registered Nurse; Emergency Provider Emergency Medicine; Visit Provider Psychiatry & Neurology Psychiatry
DX: F25.9 Schizoaffective disorder, unspecified (principal); F43.10 Post-traumatic stress disorder, unspecified; F79 Unspecified intellectual disabilities; Z79.01 Long term (current) use of anticoagulants; Z79.51 Long term (current) use of inhaled steroids; Z79.84 Long term (current) use of oral hypoglycemic drugs; Z79.899 Other long term (current) drug therapy
CPT/HCPCS: 36415; 70450; 80053; 80061; 80143; 80179; 80307; 81001; 82947; 83036; 83690; 83735; 84484; 85025; 93005; 99285; S9485

== ENCOUNTER → 2024-08-03 23:14 | Outpatient (BNV) | payer MEDICARE, MEDICAID, SELFPAY | PROVIDERS: Emergency Provider Emergency Medicine; Visit Provider Radiology Diagnostic Radiology | DX: R41.82 Altered mental status, unspecified (principal) | CPT/HCPCS: 70450 ==

== ENCOUNTER → 2024-08-04 12:07 | Outpatient (BNV) | payer MEDICARE, MEDICAID, SELFPAY | PROVIDERS: Emergency Provider Emergency Medicine; Visit Provider Internal Medicine Cardiovascular Disease | DX: I25.2 Old myocardial infarction (principal) | CPT/HCPCS: 93010 ==

== ENCOUNTER → 2024-08-05 10:39 | Outpatient (BNV) | payer MEDICARE, MEDICAID, SELFPAY | PROVIDERS: Admitting Provider Registered Nurse; Emergency Provider Emergency Medicine; Visit Provider Registered Nurse | DX: F25.9 Schizoaffective disorder, unspecified (principal); F43.10 Post-traumatic stress disorder, unspecified; F79 Unspecified intellectual disabilities | CPT/HCPCS: 90792; 99231; 99232; 99238 ==

== ENCOUNTER 2024-08-13 14:30 | Outpatient (AMB) | payer MEDICARE, MEDICAID, SELFPAY ==
[2024-08-13 14:34] VITALS: BP 124/70; PULSE 103; TEMP 36.2; O2SAT 98; BMI 25.4
--- NOTE | 2024-08-13 14:34 | MHC.PC.OV ---
Vital Signs 08/13/24 14:34 Height 5 ft 7 in Weight 162 lb BMI 25.4 BP 124/70 Blood Pressure Location Lt brachial Position Sitting Pulse 103 H Pulse Source Pulse Oximeter Temp 97.2 F Temp Source Axillary Pulse Oximetry (%) 98 Oxygen Delivery Method Room Air Intake Visit Reasons: Hospital F/U Retort Condenser Attendant Required: No Accompanied by: Mother Allergies Penicillins [PENICILLINS] Allergy (Unknown, Verified 08/13/24 15:07) Unknown Tobacco use date assessed: 08/13/24 Dental Screening Dental Screen Date: 08/13/24 Did you have a dental visit in the last 12 months?: Yes Did you have a dental problem in the last 6 months where you did not have access to dental care?: No PFSH Medical History Auditory hallucination Insulin dependent type 2 diabetes mellitus Gout Hyperlipidemia Bipolar 1 disorder Saddle pulmonary embolus Diabetes insipidus High cholesterol Anxiety PTSD (post-traumatic stress disorder) Schizo affective schizophrenia Surgical History History of colonoscopy (~05/23/24) Hx of tooth extraction Hx of excision of mass Family History Mother Fibromyalgia Post traumatic stress disorder (PTSD) Anxiety Osteopenia High cholesterol Anemia Cerebellar ataxia Social History Household Members: Foster Family Household Members Other:: Jarvis and Amarilis foster Housing: Other Housing Other:: care home/Assisted living Do you presently have visiting nurse or other home services: Yes Unable to assess alcohol history related to: Unknown Alcohol intake: never Patient Tobacco Use Status: Never used Tobacco e-Cigarette/Vaping Use: Never Used Substance Use Type: Caffiene Advance Directives Date on File: 07/05/23 service: No Current occupational status: disabled Sexual orientation: Don't Know Cognitive needs: No Hearing needs: No Vision needs: No Questionnaire Thrive Questionnaire Date Thrive assessed: 08/13/24 I am a: Patient Within the past 12 months, did the food you bought not last and you didn't have the money to get more?: Never true Within the past 12 months, did you worry whether your food would run out before you got money to buy more?: Never true Do you have trouble paying for medicines?: No Do you have trouble getting transportation to medical appointments?: No Do you have trouble paying your heating and electricity bill?: No Do you have trouble taking care of your child, family member or friend?: No Do you have trouble with day-to-day activities such as bathing, preparing meals, shopping, managing finances, etc.?: No Are you currently unemployed and looking for a job?: No Are you interested in more education?: No THRIVE Score: 0 AUDIT C Alcohol Use Questionnaire (AUDIT-C) 1. How often do you have a drink containing alcohol?: Never 3. How often do you have six or more drinks on one occasion?: Never Total Score: 0 MUNIR-7 AMB Questionnaire MUNIR-7 Date MUNIR - 7 assessed: 08/13/24 Feeling nervous, anxious, or on edge: 0 = Not at all Not being able to stop or control worryin = Not at all Worrying too much about different things: 0 = Not at all Trouble relaxin = Not at all Being so restless that it is hard to sit still: 0 = Not at all Becoming easily annoyed or irritable: 0 = Not at all Feeling afraid as if something awful might happen: 0 = Not at all Total MUNIR-7 score (0-4 normal; 5-9 mild; 10-14 moderate; 15-21 severe): 0 Source: Developed by Drs. Zbigniew Walton, Isabela Bains, Eddie Vallejo and colleagues, with an educational bev from [employer]. Physical exam (Primary Care) Vital Signs: Last Vital Signs Temp 97.2 F 08/13/24 14:34 Pulse 103 H 08/13/24 14:34 BP 124/70 08/13/24 14:34 Pulse Ox 98 08/13/24 14:34 Oxygen Delivery Method Room Air 08/13/24 14:34 BMI result Body Mass Index 25.4 Tobacco/Smoking Status: Tobacco use Status Tobacco use date assessed 08/13/24 08/13/24 14:36 Patient Tobacco Use Status Never used Tobacco 08/13/24 14:36 e-Cigarette/Vaping Use Never Used 08/13/24 15:13 Thrive Assessment: Date of Thrive Assessment Date Thrive assessed 08/13/24 08/13/24 14:36 Coding Level of Care Code Est Pt Level 3 (12973) Complex EM visit Add On G2211 Diagnoses Schizo affective schizophrenia F25.9 Assessment & Plan Assessment & Plan (1) Schizo affective schizophrenia: Code(s): F25.9 - Schizoaffective disorder, unspecified Category: Medical Plan: Hospital note reviewed. Patient is stable. No auditory hallucinations. Can restart the day program Plan History of Present Illness The patient is a 49-year-old male presenting to assess his health status post-hospitalization to determine his readiness to resume participation in a day program. The patient has a history of Diabetes Mellitus and reports effective management with stable glucose numbers, maintaining the previous medication regimen without noted changes. He is unclear on the specific cause of his recent hospitalization and acknowledges no memory of the events precipitating this admission. The patient emphasizes good care under Dr. Parekh, with a future appointment established and reminiscent of prior visits with Dr. Talbert. His residential situation includes staying at an [facility] home, ensuring a nurse's attention five days each week. Inquiries into lifestyle habits reveal abstinence from smoking, alcohol, and illegal drugs, confirming compliance with prescribed treatments. Resuming attendance at the [facility] [place] day program remains a antonio focus, as patient satisfaction and lack of aggravating symptoms advocate for his reintegration. Lastly, the patient recounts a family history noting a sister with Crohn's disease yet otherwise medically stable. Social History - Residence: Lives in an AF home, not a fpc; receives nursing support five days a week. - Family: Has one sister, noted to have Crohn's disease; resides in [place]. - Personal habits: Denies smoking, alcohol, and illicit drug use. Uses only prescription medications. - Education/Activities: Attends a day program at [facility], which involves groups; has been attending for an extended period and enjoys the program. Review of Systems - Endocrine: Reports good diabetes control. - General: Reports no smoking, alcohol, or recreational drug use. - Social/Behavioral: Denies current issues affecting daily function and attendance at day programs. Physical Exam General: Cooperative and healthy appearing Nutritional Appearance: Well nourished Orientation/consciousness: Patient oriented x3 Limitations: No limitations Head: Normal to inspection General: Appearance normal, both eyes and all related structures Neck: Normal visual inspection Chest: Normal palpation of entire chest wall Respiratory: Normal respiratory effort Neurology: Patient oriented x3 Results Plan The patient?s Diabetes Mellitus is well-managed currently, with continuing the existing medication regimen supported by consistent glucose monitoring. Scheduled follow-ups with Dr. Parekh are crucial to maintaining specialist oversight. Preparing a clearance letter to resume activities at [facility] day [facility] is essential for reintegration, contingent on confirming no residual concerns from the recent hospitalization. Regular healthcare visits are advised for comprehensive diabetes management while ensuring continuous assistance from nursing services in his residence. Patient was informed and verbally consented to the use of an ambient scribe for clinic note documentation during this visit. Discussion Notes I discussed with the patient the management of his Diabetes Mellitus, emphasizing maintaining his current medication regimen and the importance of regular glucose monitoring. The patient confirmed good control and no changes in medication since hospitalization. For his resumption to the day program, I agreed to draft a necessary medical clearance letter stating fitness for participation. The patient noted having care under Dr. Parekh with follow-up visits anticipated, supporting continuous diabetes management without interruptions. We reviewed that no immediate changes in diabetes therapy were necessary, reflecting the adequate clinical status reported. Future attendance at regular check-ups serves the dual purpose of monitoring diabetes developments and assuring suitable ongoing treatment. Patient Instructions - Continue current diabetes medication and monitor blood glucose levels consistently. - Follow up as scheduled with Dr. Parekh for diabetes management. - Await the medical clearance letter for the day program, confirming readiness to resume involvement. - Maintain open communication with nursing care support at the [facility] home. - Report any new or concerning symptoms promptly for evaluation.
--- OUTSIDE RECORDS SUMMARY | 2024-08-13 17:24 | XMS_ITS ---
[facility] Organization [facility] Address [address] [place] [address] Care Team Providers Care Production Hardener Name Role Phone Trevor Conley MD Primary Care Provider Unavaila Marcus Almanza Unavailable [phone] Allergies Allergen (clinical drug ingredient) Drug/Non Drug [...] Ordered Date Performed Result Body Sit e 92032-EUBZPUW NAIL, 6 OR MORE 05/13/2024 N/A Encounters Encounter Location Date Provider Diagnosis [facility] [address] [address] 05/13/2024 Marcus Blackunier Pain in right toe(s) [...] Treatment Pending Test Test Name Order Date 54624-VPHEIPT NAIL, 6 OR MORE 05/13/2024 Next Appt Details Follow Up: prn, Reason: Provider Name:Marcus Tracey , 08/19/2024 04:00:00 PM, [address] [place] [address], [phone], Procedure Notes * Category Sub-Category Detail [...] use of a nail nipper and/or dremel-type tool grinder operator, to a more viable healthy nail plate [...] * Moises SIMMONSinDOB:1975 ( 48 yo M)Acc No.[id number]:05/13/2024 Progress Note Patient:?SIMMONS Gautam Provider:?Marcus Tracey DPM :1975???Age:48 Y???Sex:Male Prosper e:05/13/2024 Address:[address] , [address] [facility], [place], [place] Pcp:Trevor Conley MD Subjective: * Chief Complaints: [...] History * Hospitalization/Major Diagno stic Procedure:?[facility] ER sodium too high 01/15/2020 * [...] use of a nail nipper and/or dremel-type tool grinder operator, to a more viable healthy nail plate [...] to maintain effectiveness in symptomatic relief - 73823.? * Procedure Codes:?80666 DEBRI DE NAIL, 6 OR [id number] Pall serv during david * Preventive Medicine:? [...] Tracey DPM Date:?2024 Generated for Luz burris/Danny/Nadine on:?08/13/2024 05:24 PM EDT History and Physical Notes * [...]
--- OUTSIDE RECORDS SUMMARY | 2024-08-13 17:24 | XMS_ITS | Patient Health Record ---
Author Organization [facility] Address [address] [place] [address] Care Team Providers Care Risk Management Manager Name Role Phone Trevor Conley MD Primary Care Provider Marcus Bonds Unavailable [phone] Allergies Allergen (clinical drug ingredient) Drug/Non Drug [...] Problem Acquired hammer toe of right foot (14512965138055 05) Other hammer toe(s) (acquired), right foot (M20.41) Active confirmed Response to treatment,I mprovement Problem Acquired hammer toe of left foot (64082606541689 03) Other hammer toe(s) (acquired), left foot (M20.42) Active confirmed Response to treatment,I mprovement Problem Type 2 diabetes mellitus without complication (176833269) Type 2 diabetes mellitus without complication (E11.9) Active confirmed Vital Signs Blood pressure diastolic 70 mm Hg 05/13/2024 Height 5ft 6in in 05/13/2024 Blood pressure systolic 118 mm Hg 05/13/2024 Weight 166 lbs 05/13/2024 BMI 26.79 kg/m2 05/13/2024 Procedures Procedure Date Ordered Date Performed Result Body Sit e 68620-YVRVIWL NAIL, 6 OR MORE 09/25/2023 N/A 30193-GSYPDUK NAIL, 6 OR MORE 05/13/2024 N/A Encounters Encounter Location Date Provider Diagnosis [facility] [place] [address] [place] [address] 09/25/2023 Marcusblaze Tracey Pain in right toe(s) M79.674 ; Tinea unguium B35.1 ; Pain in left toe(s) M79.675 ; Type 2 diabetes mellitus without complication E11.9 ; Xerosis of skin L85.3 ; Other hammer toe(s) (acquired), left foot M20.42 and Other hammer toe(s) (acquired), right foot M20.[address] [address] 05/13/2024 Marcus Tracey Pain in right toe(s) M79.674 ; Tinea unguium B35.1 ; Pain in left toe(s) M79.675 ; Type 2 diabetes mellitus without complication E11.9 ; Other hammer toe(s) (acquired), right foot M20.41 and Other hammer toe(s) (acquired), left foot M20.[address] [address] 12/25/2023 Marcus Tracey [address] [address] 02/18/2024 Marcus Tracey Assessments Encounter Date Diagnosis [...] Treatment Pending Test Test Name Order Date 45919-HFIIQYA NAIL, 6 OR MORE 02/03/2020 24289-QEGXZQA NAIL, 6 OR MORE 05/07/2020 80459-JRNPBQY NAIL, 6 OR MORE 08/10/2020 74686-OZMTGTM NAIL, 6 OR MORE 11/26/2020 49965-DVYOCOA NAIL, 6 OR MORE 03/04/2021 72367-BVESCLJ NAIL, 6 OR MORE 06/07/2021 92669-PCEFBUX NAIL, 6 OR MORE 09/06/2021 46464-MXAJQYK NAIL, 6 OR MORE 01/20/2022 21850-RWGACZP NAIL, 6 OR MORE 06/13/2022 36035-BHKQBZU NAIL, 6 OR MORE 09/19/2022 69995-ZLLGWZH NAIL, 6 OR MORE 12/26/2022 65016-HDEANPF NAIL, 6 OR MORE 03/27/2023 49881-LLDILVN NAIL, 6 OR MORE 06/26/2023 05043-MKJXDEV NAIL, 6 OR MORE 09/25/2023 87273-YBSSRHA NAIL, 6 OR MORE 05/13/2024 Next Appt Details Provider Name:Marcus Tracey , 08/19/2024 04:00:00 PM, [address] [facility], [place], [address], Insurance Providers Payer Name Payer Address Payer Phone Subscriber Number Group Number Insured Name Patient Relationship to Insured Coverage Start Date Coverage End Date Medicare National [employer]t [employer] [address] [place] [address] [id number] Troy Gautam Self - patient is the insured Medical (General) History Medical History History ICD Code Anxiety Depression Gout Psychiatric disorder Chicken pox type II diabetes ptsd CAD (Cholesterol) Mild Retardation Surgical History Surgery Date(Month/Year) Hospitalization History Reason Date(Month/Year) [facility] ER sodium too high 12/23
--- OUTSIDE RECORDS SUMMARY | 2024-08-13 17:24 | XMS_ITS | Clinical Summary ---
Author Organization [employer] Address [address] [place] [address] 7[address] [place] [address] Care Team Providers Care Hazardous Materials Tanker Driver Name Role Phone Unavailable Primary Care Provider Unavailabl e Allergies No known active allergies Medications clindamycin (Cleocin) 150 MG capsule 2 caps one hour prior to dental procedure 4 capsule 4 Active Encounters Date Type Department Care Team Description 07/02/2024 Telephone [facility] [address] [place] [address] Sudhir Weinstein DMD from Last 3 Months [...]
--- OUTSIDE RECORDS SUMMARY | 2024-08-13 17:24 | XMS_ITS ---
Author Organization [facility] Address [address] [place] [address] Care Team Providers Care Physician Surgeon Name Role Phone Trevor Conley MD Primary Care Provider Marcus Bonds Unavailable [phone] Encounters Encounter Location Date Provider Diagnosis [facility] [address] [place] [address] 02/19/2024 Marcus Tracey Plan Of Treatment Next Appt Details Provider Name:Marcus Tracey , 08/19/2024 04:00:00 PM, [address] [place] [address], [phone], Progress Notes * ANA MoisesKarenOB:1975 ( 49 yo M)Acc No.[id number]:02/19/2024 Progress Note Patient:?Gautam SIMMONS Provider:?Marcus Tracey DPM :1975???Age:48 Y???Sex:Male Prosper e:02/19/2024 Address:[address] , [address] [place], [place] [id number] Pcp:Trevor Conley MD Subjective: * Chief Complaints: [...] Tracey DPM Date:?2023 Generated for Luz burris/Danny/Nadine on:?08/13/2024 05:24 PM EDT
--- OUTSIDE RECORDS SUMMARY | 2024-08-13 17:24 | XMS_ITS | Patient Health Record ---
Author Organization [facility] Address [address] [place] [address] Care Team Providers Care Unit Manager Convenience Stores Name Role Phone Trevor Conley MD Primary Care Provider Naveen Flores Jr Unavailable Allergies Allergen (clinical drug ingredient) Drug/Non Drug Allergy documented on EMR Reaction Allergy Type Onset Date Status Penicillin Unknown Drug Allergy Active Results Component Value Reference Range Notes Glucose, Whole Blood Reviewed date:05/23/2024 09:24:07 PM Interpretation: Performing Lab:[facility], [address] [place] [phone] Notes/Report: Glucose, Whole Blood 233 60-115 mg/dL METER # : [id number] Reason For Referral No Information Medications Medication [...] Problem Status W/U Status Risk Notes Problem 564523365 Colon cancer screening (Z12.11) Active confirmed Problem 105773356 senior living (curre nt) use of anticoagulants (Z79.01) Active confirmed Problem 691536840 Long-term curren t use of high risk medication other than anticoagulant (Z79.899) Active confirmed Vital Signs Blood pressure diastolic 00 mm Hg 05/01/2024 Height 5 ft 7 in in 05/01/2024 Blood pressure systolic 00 mm Hg 05/01/2024 Weight 171 lbs 05/01/2024 BMI 26.78 kg/m2 05/01/2024 Encounters Encounter Location Date Provider Diagnosis [facility] Outpatient [address] [place], [place] [phone] 05/23/2024 Naveen Yang Jr Colon cancer screening Z12.11 [facility] [address] [place] [address] 05/01/2024 Naveen Yang Jr Colon cancer screening Z12.11 ; Long-term current use of high risk medication other than anticoagulant Z79.899 and senior living (current) use of anticoagulants Z79.01 [facility] [address] [place] [address] 05/14/2024 Naveen Yang Jr [facility] [address] [place] [address] 05/19/2024 Naveen Yang Jr Assessments Encounter Date [...] insulin the night before the prep. 05/01/2024 intermission coordinator (current) use of anticoagulants (ICD-10 - Z79.01) [...] [place] [address] [address] [id number] FERMIN PEREZ Self - patient is the insured MEDICAID OF [facility] [address] [place] [address] [id number] FERMIN PEREZ Self - patient is the insured Medical (General) History Medical History History ICD Code Diabetes mellitus type 2 Pulmonary embolus Schizoaffective disorder bipolar disorder Intellectual disability PTSD Hyperlipidemia Surgical History Surgery Date(Month/Year) Excision of right axillary lesion
--- OUTSIDE RECORDS SUMMARY | 2024-08-13 17:24 | XMS_ITS ---
Author Organization [facility] Address [address] [place] [address] Care Team Providers Care Wound/Ostomy Nurse Name Role Phone Trevor Conley MD Primary Care Provider Naveen Flores Jr [phone] REASON FOR VISIT eliquis note Encounters Encounter Location Date Provider Diagnosis [facility] [address] [place] [address] 05/19/2024 Naveen Yang Jr Plan Of Treatment No Information Progress Notes * FERMIN PEREZ ADOB:1975 (48 yo M)Acc No.[id number]:05/19/2024 Patient:?FERMIN PEREZ :1975???Age:48 Y???Sex:Male Address:[address] [place] [address] * true * Date:? Generated for Luz burris/Danny/eTransmitting on:?08/13/2024 05:23 PM EDT
--- OUTSIDE RECORDS SUMMARY | 2024-08-13 17:24 | XMS_ITS ---
Author Organization [facility] Address [address] [place] [address] Care Team Providers Care Upholsterer Outside Name Role Phone Trevor Conley MD Primary Care Provider UnavailMarcus Huber [phone] REASON FOR VISIT Reschedule Encounters Encounter Location Date Provider Diagnosis [address] [address] 02/18/2024 Marcus Tracey Plan Of Treatment Next Appt Details Provider Name:Marcus Tracey , 08/19/2024 04:00:00 PM, [address] [place] [address], [phone], Progress Notes * Moises SIMMONSinDOB:1975 ( 48 yo M)Acc No.[id number]:02/18/2024 Patient:?Gautam Simmons :1975???Age:48 Y???Sex:Male Address:[address] , [address] [place], [address] * true * Date:? Generated for Printi ng/Faxing/eTransmitting on:?08/13/2024 05:24 PM EDT
--- OUTSIDE RECORDS SUMMARY | 2024-08-13 17:24 | XMS_ITS ---
Author Organization [facility] Address [address] [place] [address] Care Team Providers Care Fashion Director Party Plan Sales Name Role Phone Trevor Conley MD Primary Care Provider Naveen Flores Jr [phone] REASON FOR VISIT screening Encounters Encounter Location Date Provider Diagnosis [facility] Outpatient [address] [place] [phone] 05/23/2024 Naveen Yang Jr Colon cancer screening Z12.11 Assessments Encounter Date Diagnosis (ICD Code) Assessment Notes Treatment Notes Treatment Clinical Notes Section Notes 05/23/2024 Colon cancer screening (ICD-10 - Z12.11) Plan Of Treatment No Information Progress Notes * FERMIN PEREZ ADOB:1975 (49 yo M)Acc No.[id number]:05/23/2024 COLON WITH MAC Patient:?SAM PEREZIN Dimitrios Provider:?Naveen Yang MD :1975???Age:48 Y???Sex:Male Prosper e:05/23/2024 Address:[address] [place], [place] [phone] Pcp:Trevor Conley MD Subjective: * Chief Complaints: * ???1. Screening. * Medical History:? Objective: * Vitals:? Assessment: * Assessment: 1.?Colon cancer screening - Z12.11 (Primary)??? Plan: * Treatment: * Procedure Codes:?23126 DIAGN OSTIC COLONOSCOPY, 0528F RCMND FLW-UP 10 YRS DOCD * * The named appointment provid er may or may not be the originator of this progress note, and it is not deemed complete until electronically signed by the appointment provider. Sign off status: Pending * Provider:?Naveen Yang MD Date:?0 05/23/2024 Generated for Luz burris/Danny/Nadine on:?08/13/2024 05:24 PM EDT
--- OUTSIDE RECORDS SUMMARY | 2024-08-13 17:25 | XMS_ITS | Encounter Summary ---
Author Organization [facility] [employer] Address [address] [facility] 7[address] [place] [address] Care Team Providers Care Manpower Development Specialist Manager Name Role Phone Unavailable Primary Care Provider [...]
--- OUTSIDE RECORDS SUMMARY | 2024-08-13 17:25 | XMS_ITS ---
Author Organization [facility] Address [address] [place] [address] Care Team Providers Care Sexer Name Role Phone Trevor Conley MD Primary Care Provider Naveen Flores Jr [phone] REASON FOR VISIT nurse order Encounters Encounter Location Date Provider Diagnosis [facility] [address] [place] [address] 05/14/2024 Naveen Yang Jr Plan Of Treatment No Information Progress Notes * FERMIN PEREZ ADOB:1975 (48 yo M)Acc No.[id number]:05/14/2024 Patient:?FERMIN PEREZ :1975???Age:48 Y???Sex:Male Address:[address] [place] [address] * true * Date:? Generated for Luz burris/Danny/eTransmitting on:?08/13/2024 05:24 PM EDT
== END 2024-08-13 15:42 | disposition home or self-care (01) ==
LOC: HO.HMCHD 14:30
PROVIDERS: Visit Provider Internal Medicine
DX: F25.9 Schizoaffective disorder, unspecified (principal)

== ENCOUNTER → 2024-08-13 14:30 | Outpatient (BNVA) | payer MEDICARE, MEDICAID, SELFPAY | PROVIDERS: Visit Provider Internal Medicine | DX: F25.9 Schizoaffective disorder, unspecified (principal) | CPT/HCPCS: 99212 ==

== ENCOUNTER 2024-08-14 10:18 | Outpatient (AMB) | payer MEDICARE, MEDICAID, SELFPAY ==
[2024-08-14 10:21] VITALS: BP 110/80; PULSE 107; O2SAT 96; BMI 25.9
--- NOTE | 2024-08-14 10:21 | A.OFFVIS_ITS ---
Vital Signs 08/14/24 10:21 Height 5 ft 7 in Weight 165 lb 2.02 oz BMI 25.9 BP 110/80 Blood Pressure Location Lt brachial Position Sitting Pulse 107 H Pulse Source Pulse Oximeter Pulse Oximetry (%) 96 Oxygen Delivery Method Room Air Intake Visit Reasons: Diabetes insipidus Intake Note: Patient present today for diabetes insipidus. [place] Required: No Accompanied by: mother and caregiver Allergies Penicillins [PENICILLINS] Allergy (Unknown, Verified 08/14/24 10:27) Unknown Medication List - Last Reconciled 08/14/24 by Santa Blanchard MD allopurinol 100 mg PO DAILY apixaban (Eliquis) 2.5 mg PO BID ascorbic acid (vitamin C) (Vitamin C) 1 tab PO DAILY benztropine 1 mg PO BID blood sugar diagnostic (FreeStyle Lite Strips) As directed tests 3X day cholecalciferol (vitamin D3) (Vitamin D3) 1 cap PO DAILY clonazepam 0.5 mg PO BID clozapine 300 mg PO BEDTIME fluticasone propionate 50 mcg/actuation 1 spray intranasal BID haloperidol 5 mg PO BEDTIME insulin aspart U-100 (Novolog FlexPen U-100 Insulin aspart) 1 sliding scale dose subcut USEASDIRECTD 30 days insulin glargine (Basaglar KwikPen U-100 Insulin) 42 units subcut QPM lancets (FreeStyle Lancets) 3 times a day prn sensor failure or to confirm glucose dispense as 33 guage if available metformin 1 tab PO BID multivitamin 1 tab PO DAILY pen needle, diabetic qid sertraline 1.5 tabs PO DAILY simvastatin 1 tab PO DAILY HPI Comments Details: 49-year-old male coming in today for an initial evaluation of diabetes insipidus. He is already established at our practice for follow up of insulin dependent type 2 diabetes mellitus, follows with Shireen Means APRN, this was not addressed today by me. Here today with mom Nathalia and caregiver Vickey. Was seeing nemesio Barrett in [place], [place] DM in 2002 Diabetes insipidius per mother diagnosed in 20s, was found to have high sodium levels on blood work and had symptoms of increased polyuria, increased thirst . Was never started on desmopressin Doesnt think a water deprivation test was done Feb 2020 during urosepsis, was found to be hypernatremic per mom Denies nocturia No increased urination His caregiver explains that he is thirsty all the time though, but they have restricted his water intake to 2 gal per day. No headaches, no visual changes Wt stable No lightheadedness , dizziness Does have fatigue No heat or cold intolerance No palpitations tremors : chronic [place] used from age 16 to 30 years Off it since age 30 years. Physical exam General: sitting comfortably in no acute distress HEENT: normocephalic/atraumatic, moist oral mucosa Neck: supple, symmetrical, Cardiac: normal heart sounds Pulm: normal breath sounds B/L, no added breath sounds Abd: not distended, no tenderness Extremities: no edema, no signs of myxedema Laboratory Tests 08/05/24 12:50 Sodium 142 PFSH Medical History Auditory hallucination Insulin dependent type 2 diabetes mellitus Gout Hyperlipidemia Bipolar 1 disorder Saddle pulmonary embolus Diabetes insipidus High cholesterol Anxiety PTSD (post-traumatic stress disorder) Schizo affective schizophrenia Surgical History History of colonoscopy (~05/23/24) Hx of tooth extraction Hx of excision of mass Family History Mother Fibromyalgia Post traumatic stress disorder (PTSD) Anxiety Osteopenia High cholesterol Anemia Cerebellar ataxia Social History Household Members: Foster Family Household Members Other:: Jarvis and Amarilis foster Housing: Other Housing Other:: custodial/Assisted living Do you presently have visiting nurse or other home services: Yes Unable to assess alcohol history related to: Unknown Alcohol intake: never Patient Tobacco Use Status: Never used Tobacco e-Cigarette/Vaping Use: Never Used Substance Use Type: Caffiene Advance Directives Date on File: 07/05/23 service: No Current occupational status: disabled Sexual orientation: Don't Know Cognitive needs: No Hearing needs: No Vision needs: No Assessment & Plan Assessment & Plan (1) Diabetes insipidus: Code(s): E23.2 - Diabetes insipidus Category: Medical Plan: 49-year-old male with history significant for schizophrenia, bipolar disorder, insulin dependent type 2 diabetes mellitus, hyperlipidemia who is coming in today for initial evaluation of diabetes insipidus. He already establish at [facility] for insulin dependent diabetes mellitus. This was not addressed today. Patient used to be on lithium from age 16 to age 30. Per patient's mom he was diagnosed with diabetes insipidus in his 20s when he was found to have elevated sodium levels. Apparently has never been on desmopressin. Possibly could have been nephrogenic diabetes insipidus. However currently patient denies any no cturia or polyuria and he is not even on desmopressin and his sodium levels have been within good range recently. Caregiver does describe increased thirst but water intake is limited to 2 gal per day. At this time we will obtain records from previous sampling expert to see how was diagnosis of diabetes insipidus made and what is his prior history. Unlikely that with a sodium levels being normal, and no complains of nocturia or polyuria that he has diabetes insipidus. I will also check his urine and serum osmolality along with serum sodium and urine sodium levels. Plan: -ordered urine sodium, urine osmolality, serum sodium, serum osmolality -obtain records from previous sampling expert Dr. Héctor Graves [facility] in [place], [place] -follow up in 4-5 weeks Plan I spent 45 minutes in reviewing the record, seeing the patient and documenting in the medical record. Orders: Orders Osmolality, Serum Today E23.2 - Diabetes insipidus Osmolality Urine Today E23.2 - Diabetes insipidus Basic Metabolic Panel Today E23.2 - Diabetes insipidus Sodium Urine Random Today E23.2 - Diabetes insipidus Patient Instructions: Do blood work and urine test Coding Level of Care Code Est Pt Level 4 (97274) Diagnoses Diabetes insipidus E23.2 Time Spent (min) 45
== END 2024-08-14 11:28 | disposition home or self-care (01) ==
LOC: HO.ENCR 10:19
PROVIDERS: Visit Provider Student in an Organized Health Care Education/Training Program
DX: E23.2 Diabetes insipidus (principal)
CPT/HCPCS: 99214

== ENCOUNTER 2024-08-14 10:18 | Outpatient (AMB) | payer MEDICARE, MEDICAID, SELFPAY ==
--- NOTE | 2024-08-14 10:45 | MHC.AMDMED ---
Intake Intake Visit Reasons: 60 min Accompanied by: Mother Allergies Penicillins [PENICILLINS] Allergy (Unknown, Verified 08/14/24 10:27) Unknown HPI Comprehensive Diabetes Asmnt Most Recent Diabetes Results: Cholesterol 132 mg/dL (<200) 08/06/24 HDL Cholesterol 42 mg/dL (>40) 08/06/24 Triglycerides 222 mg/dL (<150) H 08/06/24 Creatinine 1.16 mg/dL (0.5-1.4) 08/05/24 Blood Urea Nitrogen 16 mg/dL (9-16) 08/05/24 Sodium 142 mmol/L (135-145) 08/05/24 Potassium 4.3 mmol/L (3.3-5.1) 08/05/24 Chloride 102 mmol/L (96-108) 08/05/24 Carbon Dioxide 26 mmol/L (22-29) 08/05/24 Calcium 10.8 mg/dL (8.4-10.2) H 08/05/24 AST 24 U/L (5-37) 08/05/24 ALT 42 U/L (0-40) H 08/05/24 Total Protein 8.6 g/dL (6.5-8.0) H 08/05/24 Albumin 5.0 g/dL (3.5-5.0) 08/05/24 [facility] Medical History Auditory hallucination Insulin dependent type 2 diabetes mellitus Gout Hyperlipidemia Bipolar 1 disorder Saddle pulmonary embolus Diabetes insipidus High cholesterol Anxiety PTSD (post-traumatic stress disorder) Schizo affective schizophrenia Surgical History History of colonoscopy (~05/23/24) Hx of tooth extraction Hx of excision of mass Family History Mother Fibromyalgia Post traumatic stress disorder (PTSD) Anxiety Osteopenia High cholesterol Anemia Cerebellar ataxia Social History Household Members: Foster Family Household Members Other:: Jarvis and Amarilis foster Housing: Other Housing Other:: correction/Assisted living Do you presently have visiting nurse or other home services: Yes Unable to assess alcohol history related to: Unknown Alcohol intake: never Patient Tobacco Use Status: Never used Tobacco e-Cigarette/Vaping Use: Never Used Substance Use Type: Caffiene Advance Directives Date on File: 07/05/23 service: No Current occupational status: disabled Sexual orientation: Don't Know Cognitive needs: No Hearing needs: No Vision needs: No Assessment & Plan Assessment & Plan (1) Insulin dependent type 2 diabetes mellitus: Code(s): E11.9 - Type 2 diabetes mellitus without complications; Z79.4 - FDC (current) use of insulin Plan: Diabetes self-management education and support participation record Assessment/scale: 1= needs instructed? 2= needs review? 3= comprehend keep point? 4= demonstrates understanding/ competent? NC= Not Covered Topics Learning Objective: Initial visit Initial or post srvc Initial or post srvc Initial or post srvc Initial or post srvc Initial or post srvc Post srvc Comments Pre Edu-assessment/plan Outcome or reassess Outcome or reassess Outcome or reassess Outcome or reassess Outcome or reassess Outcome or reassess Diabetes pathophysiology 1 2 Healthy eating 1 3 Being active 1 3 Taking medication 1 3 Monitoring glucose 1 3 Acute complication 1 Chronic complicated 1 Lifestyle and healthy coping 1 Diabetes distress in support 1 ?Diabetes pathophysiology: ?Defined diabetes med identify own type of diabetes; list 3 options for treating diabetes Healthy eating: ?Described effect of type, amount and ?timing of food on blood glucose; list 3 methods for planning meal Being active: ?State effect of exercise on blood glucose level Taking medication: ?State effect of diabetes medications on diabetes; name diabetes medications taking, action and side effects Monitoring glucose: ?Identify recommended blood glucose targets and personal target Acute complication: ?List symptoms and treatment of hyper and hypoglycemia, DKA, sick day guidelines and guidelines for severe weather or situations of crisis and diabetes supply manage Chronic complication: ?To find the relationship of blood glucose levels to long-term complications of diabetes in screening and preventative measures Lifestyle and healthy coping: ?Described lifestyle and healthy coping strategies to rule out diabetes self-management Diabetes to stress and support: ?Recognize Diabetes to stress and be able to identified support options Learning objectives: The patient was provided with verbal and written education on the following topics as outlined below. 49 year old male with a past medical history of schizoaffective disorder, PTSD, learning disability, diabetes presenting for follow up. Accompanied by mom and caregiver metformin BID Lantus 36 units Novolog tid with meal Patient has limited sensor data due to sensor failure. There was only 3 days worth of glucose information on sensor download Learning objectives: The patient was provided with verbal and written education on the following topics as outlined below. The patient met all learning objectives and was able to verbalize understanding and provide teach back of education topics discussed . The patient was provided with the opportunity to ask questions and all questions were answered. Patient Assessment Assess patient education level/literacy/barriers Patient questions/concerns What is Diabetes? Pathophysiology How the body produces and uses insulin Identify type of DM Risk factors Signs of Diabetes Brief overview of Diabetes Management Monitoring blood sugar Following a meal plan Regular exercise Maintaining a healthy weight Taking medication as needed Members of the care team (PCP, RN, MA, RD, CDE, stock mixer) Blood glucose monitoring When/how often to test Target blood sugar ranges Introduction to Nutrition Importance of healthy diet in managing DM Diet is personalized to individual preference Review patient?s regular diet/food preferences Who prepares meals/does food shopping/ Dining out?/ Barriers? How diet effects glucose Eating 3 balanced meals a day with small, healthy snacks between meals Review food groups Carbohydrates: What is a carbohydrate/Which food/food groups are considered carbohydrates Effect of carbohydrates on blood glucose Portion sizes Reading food labels Basic carb counting (if applicable per nursing assessment) Plate method Meal planning Recommendations: Follow plate method, consistent carbs and read nutritional labels. Smart Goal: Patient and caregiver will identify foods that patient is currently eating that contain carbohydrates between now and next visit Educational Materials: The patient was provided with the following written educational materials: Planning Healthy Meals Handout Patient Response to instructions: Comprehension of Instructions: Fair Readiness to make changes: Contemplation How confident they feel about making changes: Positive Portions of this note were created using voice recognition software, please excuse any words or phrases that may have been misinterpreted. Patient Instructions: Include regular daily activity. ADA recommends 30 minutes of exercise 5 days a week. Weight loss talk to PCP or [employer] Product Consultant before starting new plan. Test blood sugar as directed; Fasting and 2hpp largest meal. Watch trends in results. Utilize results and to assess how food, physical activity and medications affect blood sugar results. Bring glucometer or CGM to next visit. Be knowledgeable about diabetes medication, its action, side effects, efficacy, toxicity, prescribed dosage, appropriate timing and frequency of administration, effect of missed and delayed doses and instructions for storage, travel and safety. Problem solving techniques to monitor hypo/hyperglycemia episodes and treatments. Reduce risk reduction behaviors, smoking cessation, regular eye, foot and dental examinations. Coding Level of Care Code Est Pt Level 1 (69322) Diagnoses Insulin dependent type 2 diabetes mellitus E11.9; Z79.4
--- OUTSIDE RECORDS SUMMARY | 2024-08-14 11:51 | XMS_ITS | Patient Health Record ---
Author Organization [facility] Address [address] [place] [address] Care Team Providers Care Throat Cutter Name Role Phone Trevor Conley MD Primary Care Provider Marcus Bonds Unavailable [phone] Allergies Allergen (clinical drug ingredient) Drug/Non Drug [...] Problem Acquired hammer toe of right foot (01213532646181 05) Other hammer toe(s) (acquired), right foot (M20.41) Active confirmed Response to treatment,I mprovement Problem Acquired hammer toe of left foot (21730721726524 03) Other hammer toe(s) (acquired), left foot (M20.42) Active confirmed Response to treatment,I mprovement Problem Type 2 diabetes mellitus without complication (370094670) Type 2 diabetes mellitus without complication (E11.9) Active confirmed Vital Signs Blood pressure diastolic 70 mm Hg 05/13/2024 Height 5ft 6in in 05/13/2024 Blood pressure systolic 118 mm Hg 05/13/2024 Weight 166 lbs 05/13/2024 BMI 26.79 kg/m2 05/13/2024 Procedures Procedure Date Ordered Date Performed Result Body Sit e 98525-CEKRSSZ NAIL, 6 OR MORE 09/25/2023 N/A 60007-HFBGWDV NAIL, 6 OR MORE 05/13/2024 N/A Encounters Encounter Location Date Provider Diagnosis [facility] [address] [place] [address] 09/25/2023 Marcusblaze Tracey Pain in right toe(s) M79.674 ; Tinea unguium B35.1 ; Pain in left toe(s) M79.675 ; Type 2 diabetes mellitus without complication E11.9 ; Xerosis of skin L85.3 ; Other hammer toe(s) (acquired), left foot M20.42 and Other hammer toe(s) (acquired), right foot M20.[address] [address] 05/13/2024 Marcus Tracey Pain in right toe(s) M79.674 ; Tinea unguium B35.1 ; Pain in left toe(s) M79.675 ; Type 2 diabetes mellitus without complication E11.9 ; Other hammer toe(s) (acquired), right foot M20.41 and Other hammer toe(s) (acquired), left foot M20.[address] [address] 12/25/2023 Marcus Tracey [address] [address] 02/18/2024 Marcus Tracey Assessments Encounter Date Diagnosis [...] Treatment Pending Test Test Name Order Date [id number]-SCYMFKR NAIL, 6 OR MORE 02/03/2020 57025-OATYZDQ NAIL, 6 OR MORE 05/07/2020 28631-TYNQVZF NAIL, 6 OR MORE 08/10/2020 01426-ZUXGIPR NAIL, 6 OR MORE 11/26/2020 58365-BMHNSVO NAIL, 6 OR MORE 03/04/2021 97439-LRIBKJZ NAIL, 6 OR MORE 06/07/2021 75890-LDZHXST NAIL, 6 OR MORE 09/06/2021 06689-GPIRBYA NAIL, 6 OR MORE 01/20/2022 31084-SZXCBEO NAIL, 6 OR MORE 06/13/2022 35117-AKCRZUU NAIL, 6 OR MORE 09/19/2022 86336-PAGAOHK NAIL, 6 OR MORE 12/26/2022 41924-XQSDOVO NAIL, 6 OR MORE 03/27/2023 97008-SELGSWV NAIL, 6 OR MORE 06/26/2023 59803-UUBSSEK NAIL, 6 OR MORE 09/25/2023 75758-SENODMM NAIL, 6 OR MORE 05/13/2024 Next Appt Details Provider Name:Marcus Tracey , 08/19/2024 04:00:00 PM, [address] [facility], [place], [address], Insurance Providers Payer Name Payer Address Payer Phone Subscriber Number Group Number Insured Name Patient Relationship to Insured Coverage Start Date Coverage End Date Medicare National [employer]t [employer] [address] [place] [address] [id number] Troy Gautam Self - patient is the insured Medical (General) History Medical History History ICD Code Anxiety Depression Gout Psychiatric disorder Chicken pox type II diabetes ptsd CAD (Cholesterol) Mild Retardation Surgical History Surgery Date(Month/Year) Hospitalization History Reason Date(Month/Year) [facility] ER sodium too high 12/23
--- OUTSIDE RECORDS SUMMARY | 2024-08-14 11:51 | XMS_ITS ---
Author Organization [facility] Address [address] [place] [address] Care Team Providers Care Snuff Grinder And Screener Name Role Phone Trevor Conley MD Primary Care Provider Naveen Flores Jr REASON FOR VISIT screening Encounters Encounter Location Date Provider Diagnosis [facility] Outpatient [address] [place] [phone] 05/23/2024 Naveen Yang Jr Colon cancer screening Z12.11 Assessments Encounter Date Diagnosis (ICD Code) Assessment Notes Treatment Notes Treatment Clinical Notes Section Notes 05/23/2024 Colon cancer screening (ICD-10 - Z12.11) Plan Of Treatment No Information Progress Notes * ANA FERMIN ADOB:1975 (49 yo M)Acc No.[id number]:05/23/2024 COLON WITH MAC Patient:?SAM PEREZIN Dimitrios Provider:?Naveen Yang MD :1975???Age:48 Y???Sex:Male Prospre e:05/23/2024 Address:[address] [place], [place] [phone] Pcp:Trevor Conley MD Subjective: * Chief Complaints: * ???1. Screening. * Medical History:? Objective: * Vitals:? Assessment: * Assessment: 1.?Colon cancer screening - Z12.11 (Primary)??? Plan: * Treatment: * Procedure Codes:?93279 DIAGN OSTIC COLONOSCOPY, 0528F RCMND FLW-UP 10 YRS DOCD * * The named appointment provid er may or may not be the originator of this progress note, and it is not deemed complete until electronically signed by the appointment provider. Sign off status: Pending * Provider:?Naveen Yang MD Date:?0 05/23/2024 Generated for Luz burris/Danny/Nadine on:?08/14/2024 11:51 AM EDT
--- OUTSIDE RECORDS SUMMARY | 2024-08-14 11:51 | XMS_ITS ---
Author Organization [facility] Address [address] [place] [address] Care Team Providers Care Optimization Consultant Name Role Phone Trevor Conley MD Primary Care Provider Unavaila Marcus Almanza Unavailable [phone] Allergies Allergen (clinical drug ingredient) Drug/Non Drug [...] Ordered Date Performed Result Body Sit e 60659-IACHJIW NAIL, 6 OR MORE 05/13/2024 N/A Encounters Encounter Location Date Provider Diagnosis [facility] [address] [address] 05/13/2024 Marcus Blackunier Pain in right toe(s) [...] Treatment Pending Test Test Name Order Date [id number] NAIL, 6 OR MORE 05/13/2024 Next Appt Details Follow Up: prn, Reason: Provider Name:Marcus Tracey , 08/19/2024 04:00:00 PM, [address] [place] [address], [phone], Procedure Notes * Category Sub-Category Detail [...] use of a nail nipper and/or dremel-type tile grinder, to a more viable healthy nail [...] * Moises SIMMONSinDOB:1975 ( 48 yo M)Acc No.[id number]:05/13/2024 Progress Note Patient:?SIMMONS Gautam Provider:?Marcus Tracey DPM :1975???Age:48 Y???Sex:Male Prosper e:05/13/2024 Address:[address] [facility], [place], [place] Pcp:Trevor Conley MD Subjective: * Chief Complaints: [...] segura Surgical History * Hospitalization/Major Diagno stic Procedure:?[facility] ER sodium too high 01/15/2020 * [...] use of a nail nipper and/or dremel-type tile grinder, to a more viable healthy nail [...] to maintain effectiveness in symptomatic relief - 93044.? * Procedure Codes:?62476 DEBRI DE NAIL, 6 OR [id number] Pall serv during david * Preventive Medicine:? [...] Tracey DPM Date:?2024 Generated for Luz burris/Danny/Nadine on:?08/14/2024 11:51 AM EDT History and Physical Notes * [...]
--- OUTSIDE RECORDS SUMMARY | 2024-08-14 11:51 | XMS_ITS | Patient Health Record ---
Author Organization [facility] Address [address] [place] [address] Care Team Providers Care Recordist Name Role Phone Trevor Conley MD Primary Care Provider Naveen Flores Jr Unavailable Allergies Allergen (clinical drug ingredient) Drug/Non Drug Allergy documented on EMR Reaction Allergy Type Onset Date Status Penicillin Unknown Drug Allergy Active Results Component Value Reference Range Notes Glucose, Whole Blood Reviewed date:05/23/2024 09:24:07 PM Interpretation: Performing Lab:[facility], [address] [place] [phone] Notes/Report: Glucose, Whole Blood 233 60-115 mg/dL METER # : [id number] Reason For Referral No Information Medications Medication [...] Problem Status W/U Status Risk Notes Problem 168155130 Colon cancer screening (Z12.11) Active confirmed Problem 751297790 senior care (curre nt) use of anticoagulants (Z79.01) Active confirmed Problem 715751928 Long-term curren t use of high risk medication other than anticoagulant (Z79.899) Active confirmed Vital Signs Blood pressure diastolic 00 mm Hg 05/01/2024 Height 5 ft 7 in in 05/01/2024 Blood pressure systolic 00 mm Hg 05/01/2024 Weight 171 lbs 05/01/2024 BMI 26.78 kg/m2 05/01/2024 Encounters Encounter Location Date Provider Diagnosis [facility] Outpatient [address], [place] [phone] 05/23/2024 Naveen Yang Jr Colon cancer screening Z12.11 [facility] [address] [place] [address] 05/01/2024 Naveen Yang Jr Colon cancer screening Z12.11 ; Long-term current use of high risk medication other than anticoagulant Z79.899 and senior care (current) use of anticoagulants Z79.01 [facility] [address] [place] [address] 05/14/2024 Naveen Yang Jr [facility] [address] [place] [address] 05/19/2024 Naveen Yang Jr Assessments Encounter Date [...] insulin the night before the prep. 05/01/2024 exterminator termite (current) use of anticoagulants (ICD-10 - Z79.01) [...] [place] [address] [address] [id number] FERMIN PEREZ Self - patient is the insured MEDICAID OF [facility] [address] [place] [address] [id number] FERMIN PEREZ Self - patient is the insured Medical (General) History Medical History History ICD Code Diabetes mellitus type 2 Pulmonary embolus Schizoaffective disorder bipolar disorder Intellectual disability PTSD Hyperlipidemia Surgical History Surgery Date(Month/Year) Excision of right axillary lesion
--- OUTSIDE RECORDS SUMMARY | 2024-08-14 11:51 | XMS_ITS ---
Author Organization [facility] Address [address] [place] [address] Care Team Providers Care Weight Yardage Checker Name Role Phone Trevor Conley MD Primary Care Provider Marcus Bonds Unavailable [phone] Encounters Encounter Location Date Provider Diagnosis [facility] [address] [place] [address] 02/19/2024 Marcus Tracey Plan Of Treatment Next Appt Details Provider Name:Marcus Tracey , 08/19/2024 04:00:00 PM, [address] [place] [address], [phone], Progress Notes * ANA MoisesKarenOB:1975 ( 49 yo M)Acc No.[id number]:02/19/2024 Progress Note Patient:?Gautam SIMMONS Provider:?Marcus Tracey DPM :1975???Age:48 Y???Sex:Male Prosper e:02/19/2024 Address:[address] Amaya , [address] [place], [place] [address] Pcp:Trevor Conley MD Subjective: * Chief Complaints: [...] Tracey DPM Date:?2023 Generated for Luz burris/Danny/Nadine on:?08/14/2024 11:51 AM EDT
--- OUTSIDE RECORDS SUMMARY | 2024-08-14 11:51 | XMS_ITS ---
Author Organization [facility] Address [address] [place] [address] Care Team Providers Care Oncology Transplant Network Manager Name Role Phone Trevor Conley MD Primary Care Provider UnavailMarcus Huber [phone] REASON FOR VISIT Reschedule Encounters Encounter Location Date Provider Diagnosis [address] [address] 02/18/2024 Marcus Tracey Plan Of Treatment Next Appt Details Provider Name:Marcus Tracey , 08/19/2024 04:00:00 PM, [address] [place] [address], [phone], Progress Notes * Moises SIMMONSinDOB:1975 ( 48 yo M)Acc No.[id number]:02/18/2024 Patient:?Gautam Simmons :1975???Age:48 Y???Sex:Male Address:[address] Amaya , [address] [place], [address] * true * Date:? Generated for Printi ng/Faxing/eTransmitting on:?08/14/2024 11:50 AM EDT
--- OUTSIDE RECORDS SUMMARY | 2024-08-14 11:51 | XMS_ITS ---
Author Organization [facility] Address [address] [place] [address] Care Team Providers Care Business Law Teacher Name Role Phone Trevor Conley MD Primary Care Provider Naveen Flores Jr [phone] REASON FOR VISIT eliquis note Encounters Encounter Location Date Provider Diagnosis [facility] [address] [place] [address] 05/19/2024 Naveen Yang Jr Plan Of Treatment No Information Progress Notes * FERMIN PEREZ ADOB:1975 (48 yo M)Acc No.[id number]:05/19/2024 Patient:?FERMIN PEREZ :1975???Age:48 Y???Sex:Male Address:[address] [place] [address] * true * Date:? Generated for Luz burris/Danny/eTransmitting on:?08/14/2024 11:50 AM EDT
--- OUTSIDE RECORDS SUMMARY | 2024-08-14 11:51 | XMS_ITS | Clinical Summary ---
Author Organization [employer] Address [address] [place] [address] 7[address] [place] [address] Care Team Providers Care Balance Wheel Facer Name Role Phone Unavailable Primary Care Provider Unavailabl e Allergies No known active allergies Medications clindamycin (Cleocin) 150 MG capsule 2 caps one hour prior to dental procedure 4 capsule 4 Active Encounters Date Type Department Care Team Description 07/02/2024 Telephone [facility] [address] [place] [address] Sudhir Weinstein DMD from Last 3 Months [...] Most Recently Relevant to Health Maintenance Insurance [facility] MEDICAID STAND ADULT
--- OUTSIDE RECORDS SUMMARY | 2024-08-14 11:52 | XMS_ITS | Encounter Summary ---
Author Organization [facility] [employer] Address [address] [facility] 7t [place] [address] Care Team Providers Care Group Worker Name Role Phone Unavailable Primary Care [...]
--- OUTSIDE RECORDS SUMMARY | 2024-08-14 11:52 | XMS_ITS ---
Author Organization [facility] Address [address] [place] [address] Care Team Providers Care Brush Polisher Name Role Phone Trevor Conley MD Primary Care Provider Naveen Flores Jr REASON FOR VISIT nurse order Encounters Encounter Location Date Provider Diagnosis [facility] [address] [place] [address] 05/14/2024 Naveen Yang Jr Plan Of Treatment No Information Progress Notes * FERMIN PEREZ ADOB:1975 (48 yo M)Acc No.[id number]:05/14/2024 Patient:?FERMIN PEREZ :1975???Age:48 Y???Sex:Male Address:[address] [place] [address] * true * Date:? Generated for Luz burris/Danny/eTransmitting on:?08/14/2024 11:51 AM EDT
== END 2024-08-14 11:34 | disposition home or self-care (01) ==
LOC: HO.ENCR 10:19
PROVIDERS: Visit Provider Registered Nurse Diabetes Educator
DX: E11.9 Type 2 diabetes mellitus without complications (principal); Z79.4 Long term (current) use of insulin

== ENCOUNTER → 2024-08-14 10:18 | Outpatient (BNVA) | payer MEDICARE, MEDICAID, SELFPAY | PROVIDERS: Visit Provider Registered Nurse Diabetes Educator | DX: E23.2 Diabetes insipidus (principal); Z79.4 Long term (current) use of insulin | CPT/HCPCS: 99211; 99212 ==

== ENCOUNTER 2024-09-01 07:36 | Outpatient (REF) | payer MEDICARE, MEDICAID, SELFPAY ==
--- OUTSIDE RECORDS SUMMARY | 2024-09-01 07:40 | XMS_ITS ---
Author Organization [facility] Address [address] [place] [address] Care Team Providers Care Home Health Care Coordinator Name Role Phone SagarReji henley Primary Care Provider Marcus Tracey Unavailable [phone] Allergies Allergen (clinical drug ingredient) Drug/Non Drug [...] Ordered Date Performed Result Body Sit e 16307-GDHIUFJ NAIL, 6 OR MORE 05/13/2024 N/A Encounters Encounter Location Date Provider Diagnosis [facility] [place] [address] [place] [address] 05/13/2024 Marcus Tracey Pain in right toe(s) [...] Treatment Pending Test Test Name Order Date 66354-GCYNQUS NAIL, 6 OR MORE 05/13/2024 Next Appt Details Follow Up: prn, Reason: Provider Name:Marcus Tracey , 11/25/2024 04:00:00 PM, [address] [place] [address], [phone], Procedure Notes * Category Sub-Category Detail [...] use of a nail nipper and/or dremel-type jig grinder set up operator, to a more viable healthy nail [...] to maintain effectiveness in symptomatic relief - 41471 Progress Notes * Moises SIMMONSinDOB:1975 ( 48 yo M)Acc No.[id number]:05/13/2024 Progress Note Patient:?Gautam SIMMONS Provider:?Marcus Tracey DPM :1975???Age:48 Y???Sex:Male Prosper e:05/13/2024 Address:[address] Amaya , [address] [facility], [place] Pcp:Trevor Conley MD Subjective: * Chief Complaints: [...] segura Surgical History * Hospitalization/Major Diagno stic Procedure:?[facility] ER sodium too high 01/15/2020 [...] use of a nail nipper and/or dremel-type jig grinder set up operator, to a more viable healthy nail [...] to maintain effectiveness in symptomatic relief - 27905.? * Procedure Codes:?68735 DEBRI DE NAIL, 6 OR [id number] Pall serv during david * Preventive Medicine:? [...] Tracey DPM Date:?2024 Generated for Luz burris/Danny/Nadine on:?09/01/2024 07:40 AM EDT History and Physical Notes * [...]
--- OUTSIDE RECORDS SUMMARY | 2024-09-01 07:40 | XMS_ITS | Patient Health Record ---
Author Organization [facility] Address [address] [place] [address] Care Team Providers Care Telephone Answering Service Operator Name Role Phone Trevor Conley MD Primary Care Provider Naveen Flores Jr Unavailable Allergies Allergen (clinical drug ingredient) Drug/Non Drug Allergy documented on EMR Reaction Allergy Type Onset Date Status Penicillin Unknown Drug Allergy Active Results Component Value Reference Range Notes Glucose, Whole Blood Reviewed date:05/23/2024 09:24:07 PM Interpretation: Performing Lab:[facility], [address] [place] [address] Notes/Report: Glucose, Whole Blood 233 60-115 mg/dL METER # : [id number] Reason For Referral No Information Medications Medication [...] Problem Status W/U Status Risk Notes Problem 656279648 Colon cancer screening (Z12.11) Active confirmed Problem 565883323 buttermilk drier operator (curre nt) use of anticoagulants (Z79.01) Active confirmed Problem 442738482 Long-term curren t use of high risk medication other than anticoagulant (Z79.899) Active confirmed Vital Signs Blood pressure diastolic 00 mm Hg 05/01/2024 Height 5 ft 7 in in 05/01/2024 Blood pressure systolic 00 mm Hg 05/01/2024 Weight 171 lbs 05/01/2024 BMI 26.78 kg/m2 05/01/2024 Encounters Encounter Location Date Provider Diagnosis [facility] Out[facility] [address] [place], [place] [address] 05/23/2024 aNveen Yang Jr Colon cancer screening Z12.11 [facility] [address] [place] [address] 05/01/2024 Naveen Yang Jr Colon cancer screening Z12.11 ; Long-term current use of high risk medication other than anticoagulant Z79.899 and buttermilk drier operator (current) use of anticoagulants Z79.01 [facility] [address] [place] [address] 05/14/2024 Naveen Yang Jr [facility] [address] [place] [address] 05/19/2024 Naveen Yang Jr Assessments Encounter Date [...] insulin the night before the prep. 05/01/2024 buttermilk drier operator (current) use of anticoagulants (ICD-10 - Z79.01) [...] [place] [address] [address] [id number] FERMIN PEREZ Self - patient is the insured MEDICAID OF [facility] [address] [place] [address] [id number] FERMIN PEREZ Self - patient is the insured Medical (General) History Medical History History ICD Code Diabetes mellitus type 2 Pulmonary embolus Schizoaffective disorder bipolar disorder Intellectual disability PTSD Hyperlipidemia Surgical History Surgery Date(Month/Year) Excision of right axillary lesion
--- OUTSIDE RECORDS SUMMARY | 2024-09-01 07:40 | XMS_ITS | Patient Health Record ---
Author Organization [facility] Address [address] [place] [address] Care Team Providers Care Maintenance Technician 2Nd Shift Name Role Phone Reji Keith Primary Care Provider [phone] Marcus Tracey Unavailable [phone] Allergies Allergen (clinical drug ingredient) Drug/Non Drug [...] Duration) Notes Start Date End Date Status Benztropine Mesylate 1 MG Orally Twice a day Active Allopurinol 100 MG 1 tablet Orally Once a day Active Multi Vitamin Once a day Activ e Ascorbic Acid 500 MG 1 tablet Orally Onc e a day Active Sertraline HCl 100 MG 1.5 tablet Orally Once a day Active Simvastatin 80 MG 1 tablet in the even ing Orally Once a day for 30 day(s) Active Eliquis Active Ammonium Lactate 12 % 1 application Exte rnally Twice a day for 30 days Active Fiber Active Extra Depth Orthopedic Shoes (1 Pair) with Customized Heat Molded Multidensity Innersoles (3 Pair) as directed Dx: NIDDM (E11.9), Hammertoe Foot Deformity (M20.41,M20.42), Preulcerative Skin Lesion(s) (L85.1) Active clonazePAM 0.5 MG 1 tablet at bedtime Orally Twice a day Active Topiramate 3 tab Active Cogentin 1mg 1tab Twice a day Active Vitamin D 25 MCG (1000 UT) Orally Once a day Active Haldol 5mg 1 tab once a day Ac tive metFORMIN HCl 500 MG 1 tablet with a carlee l Orally Once a day for 30 days Active Flonase Active Jardiance 25 MG 1 tablet Orally Once a day for 30 day(s) Not-Taking glipiZIDE XL 2.5 MG 1 tablet with breakf ast Orally Once a day for 30 day(s) Active Warfarin Sodium 2.5 MG 1 tablet Orally O nce a day for 30 day(s) Not-Taking Immunizations Vaccine Route Administration Date Status Comme nts Influenza Unknown 02/02/2022 Administered Social History Tobacco Use: Social History Observation Description Date Details (start date - stop date) Never Smoker NA - NA Tobacco use other than smoking: Question Answer Notes Are you an other tobacco user? No Tobacco Control (Standard) Question Answer Notes Tobacco use: Nonsmoker Additional Findings: Tobacco non-user Current no nsmoker AUDIT-C (Standard) Question Answer Notes Did you have a drink containing alcohol in the p ast year? No Points 0 Interpretation Negative Problems Problem Type SNOMED Code ICD Code Onset Dates Problem Status W/U Status Risk Notes Problem Acquired hammer toe of right foot (66224160743035 05) Other hammer toe(s) (acquired), right foot (M20.41) Active confirmed Response to treatment,I mprovement Problem Acquired hammer toe of left foot (36991587068571 03) Other hammer toe(s) (acquired), left foot (M20.42) Active confirmed Response to treatment,I mprovement Problem Type 2 diabetes mellitus without complication (316482044) Type 2 diabetes mellitus without complication (E11.9) Active confirmed Vital Signs Blood pressure diastolic 70 mm Hg 08/19/2024 Height 5ft 6in in 08/19/2024 Blood pressure systolic 115 mm Hg 08/19/2024 Weight 166 lbs 08/19/2024 BMI 26.79 kg/m2 08/19/2024 Procedures Procedure Date Ordered Date Performed Result Body Sit e 30074-RQEOZYV NAIL, 6 OR MORE 09/25/2023 N/A 17699-VEGZFPO NAIL, 6 OR MORE 05/13/2024 N/A 29480-BVBJZFQ NAIL, 6 OR MORE 08/19/2024 N/A Encounters Encounter Location Date Provider Diagnosis [address] [address] 09/25/2023 Marcusblaze Tracey Pain in right toe(s) M79.674 ; Tinea unguium B35.1 ; Pain in left toe(s) M79.675 ; Type 2 diabetes mellitus without complication E11.9 ; Xerosis of skin L85.3 ; Other hammer toe(s) (acquired), left foot M20.42 and Other hammer toe(s) (acquired), right foot M20.[address] [address] 05/13/2024 Marcus Kyung Pain in right toe(s) M79.674 ; Tinea unguium B35.1 ; Pain in left toe(s) M79.675 ; Type 2 diabetes mellitus without complication E11.9 ; Other hammer toe(s) (acquired), right foot M20.41 and Other hammer toe(s) (acquired), left foot M20.[address] [address] 08/19/2024 Marcus Kyung Pain in right toe(s) M79.674 ; Tinea unguium B35.1 ; Pain in left toe(s) M79.675 and Type 2 diabetes mellitus without complication E11.[address] [address] 12/25/2023 Marcus Tracey [address] [address] 02/18/2024 Marcus Tracey Assessments Encounter Date Diagnosis (ICD Code) Assessment Notes Treatment Notes Treatment Clinical Notes Section Notes 09/25/2023 Pain in right toe(s) (ICD-10 - M79.674) 05/13/2024 Pain in right toe(s) (ICD-10 - M79.674) 08/19/2024 Pain in right toe(s) (ICD-10 - M79.674) 08/19/2024 Tinea unguium (ICD-10 - B35.1) 08/19/2024 Pain in left toe(s) (ICD-10 - M79.675) 05/13/2024 Tinea unguium (ICD-10 - B35.1) 05/13/2024 Pain in left toe(s) (ICD-10 - M79.675) 09/25/2023 Tinea unguium (ICD-10 - B35.1) 09/25/2023 Pain in left toe(s) (ICD-10 - M79.675) 05/13/2024 Type 2 diabetes mellitus without complication (ICD-10 - E11.9) 08/19/2024 Type 2 diabetes mellitus without complication (ICD-10 [...] Treatment Pending Test Test Name Order Date 45187-YRLTWNQ NAIL, 6 OR MORE 02/03/2020 84339-IDTBCBJ NAIL, 6 OR MORE 05/07/2020 71748-GHKUCBM NAIL, 6 OR MORE 08/10/2020 72039-CQSILCF NAIL, 6 OR MORE 11/26/2020 43618-XOYDETW NAIL, 6 OR MORE 03/04/2021 14437-EJSRMDS NAIL, 6 OR MORE 06/07/2021 04588-EAJWQLK NAIL, 6 OR MORE 09/06/2021 60306-ZFPGXYQ NAIL, 6 OR MORE 01/20/2022 48511-CQKNFIG NAIL, 6 OR MORE 06/13/2022 75420-LFEMMHP NAIL, 6 OR MORE 09/19/2022 62956-FAZXMQS NAIL, 6 OR MORE 12/26/2022 57058-OOMVULS NAIL, 6 OR MORE 03/27/2023 55287-EKKMXPR NAIL, 6 OR MORE 06/26/2023 51773-UPNZTAV NAIL, 6 OR MORE 09/25/2023 92212-AWACCEV NAIL, 6 OR MORE 05/13/2024 16541-LYTYPOI NAIL, 6 OR MORE 08/19/2024 Next Appt Details Provider Name:Marcus Pollockier , 11/25/2024 04:00:00 PM, [address] [facility], [place], [address], Insurance Providers Payer Name Payer Address Payer Phone Subscriber Number Group Number Insured Name Patient Relationship to Insured Coverage Start Date Coverage End Date Medicare National [employer] [address] [place] [address] [id number] Gautam Simmons Self - patient is the insured Medical (General) History Medical History History ICD Code Anxiety Depression Gout Psychiatric disorder Chicken pox type II diabetes ptsd CAD (Cholesterol) Mild Retardation Surgical History Surgery Date(Month/Year) Hospitalization History Reason Date(Month/Year) [facility] ER sodium too high 12/23
--- OUTSIDE RECORDS SUMMARY | 2024-09-01 07:40 | XMS_ITS ---
Author Organization [facility] Address [address] [place] [address] Care Team Providers Care Cyber Reverse Engineer Name Role Phone Trevor Conley MD Primary Care Provider Naveen Flores Jr REASON FOR VISIT eliquis note Encounters Encounter Location Date Provider Diagnosis [facility] [address] [place] [address] 05/19/2024 Naveen Yang Jr Plan Of Treatment No Information Progress Notes * FERMIN PEREZ ADOB:1975 (48 yo M)Acc No.[id number]:05/19/2024 Patient:?FERMIN PEREZ :1975???Age:48 Y???Sex:Male Address:[address] [place] [address] * true * Date:? Generated for Luz burris/Danny/eTransmitting on:?09/01/2024 07:39 AM EDT
--- OUTSIDE RECORDS SUMMARY | 2024-09-01 07:40 | XMS_ITS ---
Author Organization [facility] Address [address] [place] [address] Care Team Providers Care Certified Pediatric Nurse Practitioner Name Role Phone SagarReji henley Primary Care Provider Marcus Tracey Unavailable [phone] Allergies Allergen (clinical drug ingredient) Drug/Non Drug Allergy documented on EMR Reaction Allergy Type Onset Date Status amoxicillin Amoxicillin rash oral itchy Drug Allergy Active Penicillin rash oral.,itchy Drug Allergy Active REASON FOR VISIT At Risk Footcare, Painful Nail(s) aggravated by shoes and causing difficulty standing/walking. Medications Medication SIG (Take, Route, Frequency, Duration) Notes Start Date End Date Status Allopurinol 100 MG 1 tablet Orally Once a day Active Ammonium Lactate [...] nce a day for 30 day(s) Not-Taking Multi Vitamin Once a day Activ e Sertraline HCl 100 MG 1.5 tablet Orally Once a day Active Simvastatin 80 MG 1 tablet in the even ing Orally Once a day for 30 day(s) Active Topiramate 3 tab Active Vitamin D 25 MCG (1000 UT) Orally Once a day Active Fiber Active Haldol 5mg 1 tab once a day Ac tive metFORMIN HCl 500 MG 1 tablet with a carlee l Orally Once a day for 30 days Active Flonase Active glipiZIDE XL 2.5 MG 1 tablet with breakf ast Orally Once a day for 30 day(s) Active Benztropine Mesylate 1 MG Orally Twice a day Active Ascorbic Acid 500 MG 1 tablet Orally Onc e a day Active Eliquis Active clonazePAM 0.5 [...] ast year? No Points 0 Interpretation Negative Vital Signs Height 5ft 6in in 08/19/2024 Weight 166 lbs 08/19/2024 BMI 26.79 kg/m2 08/19/2024 Blood pressure systolic 115 mm Hg 08/20/19 25 Blood pressure diastolic 70 mm Hg 025 Procedures Procedure Date Ordered Date Performed Result Body Sit e 22248-IWPXVTK NAIL, 6 OR MORE 08/19/2024 N/A Encounters Encounter Location Date Provider Diagnosis [facility] [place] [address] [place] [address] 08/19/2024 Marcus Kyung Pain in right toe(s) M79.674 ; Tinea unguium B35.1 ; Pain in left toe(s) M79.675 and Type 2 diabetes mellitus without complication E11.9 Assessments Encounter Date Diagnosis (ICD Code) Assessment Notes Treatment Notes Treatment Clinical Notes Section Notes 08/19/2024 Pain in right toe(s) (ICD-10 - M79.674) 08/19/2024 Tinea unguium (ICD-10 - B35.1) 08/19/2024 Pain in left toe(s) (ICD-10 - M79.675) 08/19/2024 Type 2 diabetes mellitus without complication (ICD-10 - E11.9) Plan Of Treatment Pending Test Test Name Order Date 46298-TVESTEI NAIL, 6 OR MORE 08/19/2024 Next Appt Details Follow Up: prn, Reason: Provider Name:Marcus Tracey , 11/25/2024 04:00:00 PM, [address] [place] [address], [phone], Procedure Notes * Category Sub-Category Detail Notes [...] use of a nail nipper and/or dremel-type universal grinder operator, to a more viable healthy [...] to maintain effectiveness in symptomatic relief - 26[address] Progress Notes * Moises SIMMONSinDOB:1975 ( 49 yo M)Acc No.[id number]:08/19/2024 Progress Note Patient:?Gautam SIMMONS Provider:?Marcus Tracey DPM :1975???Age:49 Y???Sex:Male Prosper e:08/19/2024 Address:[address] Amaya , [address] [place], [place] [address] Pcp:Reji Keith Subjective: * Chief Complaints: * ???At Risk FootcarePainful N ail(s) aggravated by shoes and causing difficulty standing/walking. * HPI: ???At Risk footcare:?Pt States Last PCP Visit:?Date?08/13/2024 ?Misc?Patient accompanied by, Mother,MICHAEL, who is physically present in exam room at time of visit.? * ROS:?General/Constitutional:?Nausea?denies.?Vomiting?denies.?Hunger Thirst?denies.?Loss appetite?denies.?Chills?denies.?Fatigue?denies.?Fever?denies.?Night Sweats?denies.?Unexplained weight loss?denies.?Unexplained [...] rouble?denies,?denies.?Confusion?denies,?denies.?Fainting/blackouts?denies,?louie es.?Tingling?denies,?denies.?Tremors?denies,?denies.? * Medical History:? * Surgical History:?Denies Pas t Surgical History * Hospitalization/Major Diagno stic Procedure:?[facility] ER sodium too high 01/15/2020 * Family [...] medical reasons in the past 12 months??No ???Miscellaneous:?Caffeine: no. ?Children: no. ?Exercise: yes, walking. ?Marital status: single. ?Occupation: Disabled. ???Drug/Alcohol:?AUDIT-C (Standard)?Did you have a drink containing alcohol in the past year??No ?Points?0 ?Interpretation?Negative * Medications:?TakingAllopurin ol 100 MG Tablet 1 tablet Orally Once a day Ascorbic Acid 500 MG Tablet 1 tablet [...] 1 tab once a day metFORMIN HCl 500 MG Tablet 1 tablet with a meal [...] Deformity (M20.41,M20.42), Preulcerative Skin Lesion(s) (L85.1) Taking Allopurinol 100 MG Tablet 1 tablet Orally Once a day Taking Ascorbic Acid 500 MG Tablet 1 [...] tab once a day Taking metFORMIN HCl 500 MG Tablet 1 tablet with a meal [...] * Vitals:?Ht:5ft 6in, Wt:166, BMI:26.79, Shoe size:9.5W, BP:115/70mm Hg, BS:143, Ht-cm: 167.64 cm, Wt-k.3 kg. * ???Past Orders: ???Lab:HEMOGLOBIN A1C (GLYCO HEMOGLOBIN) (Order Date - 02/22/2024) (Collection Date & Time - 04/24/2024 03:33 PM) ? Value Reference Range ?HEMOGLOBIN A1C % (HH) 6.4 * Examination: ???Ophthalmology Referral: ?DIABETES EYE EXAM?Procedure Performed:?Yes ?Date of Exam Performed?04/25/2024 ?Diabetic Retinopathy Screening:?Yes ?Retinal Screening Performed:?Yes ?Findings of Diabetic Eye Exam:?no retinopathy?Nails: ?NAILS are:?Elongated, overgrown, dystrophic, lytic, greater than 3mm thick, discolored and friable with crumbly malodorous subungual debris, with pain on palpation, TA, T1, T2, T3, T4, T5, T6, T7, T8, T9.? Assessment: * Assessment: 1.?Pain in right toe(s) - M7 9.674???2.?Tinea unguium - B35.1 (Primary)???3.?Pain in left toe(s) - M79.675???4.?Type 2 diabetes mellitus without complication - E11.9??? Plan: * Treatment: * Procedures:?Debride Nail 6-10:?Nail [...] use of a nail nipper and/or dremel-type universal grinder operator, to a more viable healthy [...] to maintain effectiveness in symptomatic relief - [address].? * Procedure Codes:?87265 DEBRI DE NAIL, 6 OR MORE * Follow Up:?prn * Images: * Sign off status: Completed true * Provider:?Marcus Tracey DPM Date:?2024 Generated for Luz burris/Danny/Nadine on:?09/01/2024 07:39 AM EDT History and Physical Notes * HPI (History of Present Illness) Category Sub-Category Detail Notes Category Not es At Risk footcare Pt States Last PCP Visit: Date: [facility] Patient accompanied by, Mother, MICHAEL, who is physically present in exam room at time of visit Examination Category Sub-Category Detail Notes Category Not es Ophthalmology Referral DIABETES EYE EXAM Procedu re Performed:: Yes ?Date of Exam Performed: 04/25/2024 Diabetic Retinopathy Screening:: Yes Retinal Screening Performed:: Yes Findings of Diabetic Eye Exam:: no retin opathy Nails NAILS are: Elongated, overg rown, dystrophic, lytic, greater than 3mm thick, discolored and friable with crumbly malodorous subungual debris, with pain on palpation, TA, T1, T2, T3, T4, T5, T6, T7, T8, T9
--- OUTSIDE RECORDS SUMMARY | 2024-09-01 07:40 | XMS_ITS ---
Author Organization [facility] Address [address] [place] [phone] Care Team Providers Care Cnc Maintenance Mechanic Name Role Phone Trevor Conley MD Primary Care Provider Naveen Flroes Jr [phone] REASON FOR VISIT screening Encounters Encounter Location Date Provider Diagnosis [facility] Outpatient [address] [place] [phone] 05/23/2024 Naveen Yang Jr Colon cancer screening Z12.11 Assessments Encounter Date Diagnosis (ICD Code) Assessment Notes Treatment Notes Treatment Clinical Notes Section Notes 05/23/2024 Colon cancer screening (ICD-10 - Z12.11) Plan Of Treatment No Information Progress Notes * ANA FERMIN ADOB:1975 (49 yo M)Acc No.[id number]:05/23/2024 COLON WITH MAC Patient:?SAM PEREZIN Dimitrios Provider:?Naveen Yang MD :1975???Age:48 Y???Sex:Male Prosper e:05/23/2024 Address:[address] [place], [place] [id number] Pcp:Trevor Conley MD Subjective: * Chief Complaints: * ???1. Screening. * Medical History:? Objective: * Vitals:? Assessment: * Assessment: 1.?Colon cancer screening - Z12.11 (Primary)??? Plan: * Treatment: * Procedure Codes:?66386 DIAGN OSTIC COLONOSCOPY, 0528F RCMND FLW-UP 10 YRS DOCD * * The named appointment provid er may or may not be the originator of this progress note, and it is not deemed complete until electronically signed by the appointment provider. Sign off status: Pending * Provider:?Naveen Yang MD Date:?0 05/23/2024 Generated for Luz burris/Danny/Nadine on:?09/01/2024 07:40 AM EDT
--- OUTSIDE RECORDS SUMMARY | 2024-09-01 07:40 | XMS_ITS ---
Author Organization [facility] Address [address] [place] [address] Care Team Providers Care Spice Grinder Name Role Phone Reji Keith Primary Care Provider Marcus Tracey [phone] Encounters Encounter Location Date Provider Diagnosis [address] [phone] 02/19/2024 Marcus Tracey Plan Of Treatment Next Appt Details Provider Name:Marcus Tracey , 11/25/2024 04:00:00 PM, [address] [place] [address], [phone], Progress Notes * Moises SIMMONSinDOB:1975 ( 49 yo M)Acc No.[id number]:02/19/2024 Progress Note Patient:?ANAMoisesin Provider:?Marcus Tracey DPM :1975???Age:48 Y???Sex:Male Prosper e:02/19/2024 Address:[address] , [address] [place], [place] [phone] Pcp:Reji Keith Subjective: * Chief Complaints: * ??? * Medical History:? Objective: * Vitals:? Assessment: Plan: * Treatment: * Images: * The named appointment provid er may or may not be the originator of this progress note, and it is not deemed complete until electronically signed by the appointment provider. Sign off status: Pending * Provider:Alexsandra Tracey DPM Date:?2023 Generated for Luz burris/Danny/Nadine on:?09/01/2024 07:40 AM EDT
--- OUTSIDE RECORDS SUMMARY | 2024-09-01 07:40 | XMS_ITS | Clinical Summary ---
Author Organization [employer] Address [address] [facility] [address]t [place] [address] Care Team Providers Care Geologic Technician Name Role Phone Unavailable Primary Care Provider Unavailabl e Allergies No known active allergies Medications clindamycin (Cleocin) 150 MG capsule 2 caps one hour prior to dental procedure 4 capsule 4 Active Encounters Date Type Department Care Team Description 07/02/2024 Telephone [facility] [address] [place] [address] Sudhir Weinstein DMD from Last 3 Months [...] this topic Meningococcal Vaccine Aged Out No urbnao jocelyn eligible based on patient's age to [...] Most Recently Relevant to Health Maintenance Insurance [facility] MEDICAID STAND ADULT
--- OUTSIDE RECORDS SUMMARY | 2024-09-01 07:41 | XMS_ITS ---
Author Organization [facility] Address [address] [place] [phone] Care Team Providers Care Director Service Name Role Phone Trevor Conley MD Primary Care Provider Naveen Flores Jr REASON FOR VISIT nurse order Encounters Encounter Location Date Provider Diagnosis [facility] [address] [place] [phone] 05/14/2024 Naveen Yang Jr Plan Of Treatment No Information Progress Notes * FERMIN PEREZ ADOB:1975 (48 yo M)Acc No.[id number]:05/14/2024 Patient:?FERMIN PEREZ :1975???Age:48 Y???Sex:Male Address:[address] [place] [address] * true * Date:? Generated for Luz burris/Danny/eTransmitting on:?09/01/2024 07:40 AM EDT
--- OUTSIDE RECORDS SUMMARY | 2024-09-01 07:41 | XMS_ITS | Encounter Summary ---
Author Organization [employer] [facility] Address [address] [facility] 7[address] [place] [address] Care Team Providers Care Fisher Lampara Net Name Role Phone Unavailable Primary Care Provider [...]
[2024-09-01 12:41] LABS: MANUAL DIFF FLAG NO
[2024-09-01 12:59] LABS: Basophils Absolute Auto 0.1 X10*3/uL (0.0-0.2); Basophils Percent Auto 0.7 % (0-2); Eosinophils Absolute Auto 1.1 X10*3/uL (0.0-0.4); Hematocrit 40.4 % (42.0-52.0); Hemoglobin 13.3 g/dl (14.0-18.0); Imm Gran Abs Auto 0.03 X10*3/uL (0.00-0.03); Imm Gran Pct Auto 0.4 % (0.0-0.4); Lymphocytes Absolute Auto 1.9 X10*3/uL (1.2-4.9); Lymphocytes Percent Auto 26.1 % (20-40); Mean Corpuscular HGB Conc 32.9 g/dl (31.0-36.0); Mean Corpuscular Hemoglobin 28.8 pg (27.0-33.0); Mean Corpuscular Volume 87.4 fL (80.0-98.0); Mean Platelet Volume 11.4 fL (9.4-12.4); Monocytes Absolute Auto 0.2 X10*3/uL (0.1-1.2); Neutrophils Absolute Auto 3.8 x10*3/uL (2.0-8.3); Neutrophils Percent Auto 53.8 % (45-73); Platelet Count 202 X10*3/uL (160-400); Red Blood Count 4.62 X10*6/uL (4.60-5.80); White Blood Count 7.1 X10*3/uL (4.8-10.8)
== END 2024-09-01 07:37 | disposition home or self-care (01) ==
LOC: HO.10HDL 07:36
PROVIDERS: Visit Provider Psychiatry & Neurology Psychiatry
DX: Z79.899 Other long term (current) drug therapy (principal)
CPT/HCPCS: 36415; 85025

== ENCOUNTER 2024-09-11 15:36 | Outpatient (AMB) | payer MEDICARE, MEDICAID, SELFPAY ==
--- NOTE | 2024-09-11 12:36 | MHC.OFFVIS ---
Vital Signs 09/11/24 15:39 Height 5 ft 7 in Weight 169 lb 15.622 oz BMI 26.6 BP 130/90 H Blood Pressure Location Rt brachial Position Sitting Pulse 94 Pulse Source Pulse Oximeter Pulse Oximetry (%) 99 Oxygen Delivery Method Room Air Intake Visit Reasons: T2DM Intake Note: Patient presents today for a follow-up on Type 2 Diabetes Mellitus: Last Diabetic eye exam was on: Within the year, november Last Podiatry exam was on: 08/19/2024, [facility] Most recent HbA1c: 9.9%, 07/08/2024 Random Glucose- 115 mg/dL Rails Developer Required: No Accompanied by: Mother Allergies Penicillins [PENICILLINS] Allergy (Unknown, Verified 09/23/24 14:56) Unknown HPI Comments Details: 49 YO male who is seen in f/u for diabetes. He was seen as an initial consult 07/03/2024 and had multiple ER visits for elevated glucose and positive ketones. He has had several insulin adjustments and is doing muc better. Diagnosed in 2002 He was hospitalized in [facility] with a glucose of 600 2023 and 2024 and was started on basal bolus insulin. hemoglobin A1c 07/03/2024 9.9%, 03/17/2024 7.4%. Prior to that time his A1c was in the 10% range. MUNIR negative 07/06/23is diabetes care is complicated by schizoaffective disorder, PTSD and learning disability. He has a caregiver and mother is involved in his care. He does go to a day program which was given orders for insulin administration at each visit. [facility] fax [phone] telephone [phone] Initially diagnosed with T2DM approximately 2013 Was initially started on treatment with metformin and Jardiance Lantus 42 units Novolog tid with meals (orders sent to day [facility] for lunch administration) breakfast and supper 80-100 6 units 101-150 8 units 151-200 10 units 201-250 12 units 251-300 14 units 301-350 16 units over 350 18 units Over 350 dip urine for ketones: if positive go to ER lunch 80-100 4 units 101-150 4 units 151-200 8 units 201-250 10 units 251-300 12 units 301-350 14 units over 350 16 units same ketone protocol Current regimen Lantus 44 units ( had been prescribed at 36 units but care give her has been giving 42 Novolog per scale tid with meals 80-150 4 units 151-200 6 units Family history of T2DM on father's side Has eyes checked yearly, last eye exam 11/2023, retinopathy. Denies neuropathy Had CJ recent hosp stay Has HLD, on statin Denies chest pain, dyspnea or symptoms of claudication. 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 Gout Hyperlipidemia Bipolar 1 disorder Saddle pulmonary embolus Diabetes insipidus High cholesterol Anxiety PTSD (post-traumatic stress disorder) Schizo affective schizophrenia Surgical History History of colonoscopy (~05/23/24) Hx of tooth extraction Hx of excision of mass Family History Mother Fibromyalgia Post traumatic stress disorder (PTSD) Anxiety Osteopenia High cholesterol Anemia Cerebellar ataxia Social History Household Members: Foster Family Household Members Other:: Jarvis and Amarilis foster Housing: Other Housing Other:: [facility]/Assisted living Do you presently have visiting nurse or other home services: Yes Unable to assess alcohol history related to: Unknown Alcohol intake: never Patient Tobacco Use Status: Never used Tobacco e-Cigarette/Vaping Use: Never Used Substance Use Type: Caffiene Advance Directives Date on File: 07/05/23 service: No Current occupational status: disabled Sexual orientation: Don't Know Cognitive needs: No Hearing needs: No Vision needs: No Physical Exam Vital Signs: Last Vital Signs Pulse 94 09/11/24 15:39 BP 130/90 H 09/11/24 15:39 Pulse Ox 99 09/11/24 15:39 Oxygen Delivery Method Room Air 09/11/24 15:39 BMI result Body Mass Index 26.6 Const Other: Absence of Cushingoid features. Absence of acromegalic features. Neck exam reveals nl size thyroid about 15 gms. No thyroid nodules palpable. Heart S1 S2, Reg R/R. No M/R G. Skin exam reveals absence of vitiligo or acanthosis nigricans. No edema Results Reviewed Results Reviewed: Laboratory Last Values Glucose (Clinic) 115 mg/dL (60-115) 09/11/24 15:46 Assessment & Plan Assessment & Plan (1) Diabetes mellitus: Code(s): E11.9 - Type 2 diabetes mellitus without complications Category: Medical Plan: 49-year-old diabetic with improving glycemic control. New dosing of insulin Lantus 36 units Humalog for breakfast and supper 80-100 6 units 101-150 8 units 151-200 10 units 201-250 12 units 251-300 14 units 301-350 16 units Over 350 18 units Lunch 80-100 4 units 101-150 4 units 151-200 8 units 201-250 10 units 251-300 12 units 301-350 14 units Over 350 16 units Over 350 dip for ketones if moderate go to ER The patient had an opportunity to ask questions regarding treatment plan. The patient expressed understanding and agreement with the above treatment plan. The patient is aware they should contact our office by phone for worsening glucose readings or for any low blood sugars which may warrant a change in diabetes medication. Compliance is encouraged with medications and any followup testing/consults which may have been ordered. Patient have blood work done to determine if he has type 1 versus type 2 Orders: Orders Glutamic acid decarboxylase Ab 09/11/24 E11.9 - Type 2 diabetes mellitus without complications Coding Level of Care Code Est Pt Level 4 (72774) Complex EM visit Add On G2211 Diagnoses Diabetes mellitus E11.9 Time Spent (min) 30 Comment Time spent reviewing labs/provider notes, face to face, chart doc
[2024-09-11 15:39] VITALS: BP 130/90; PULSE 94; O2SAT 99; BMI 26.6
--- OUTSIDE RECORDS SUMMARY | 2024-09-11 15:39 | XMS_ITS ---
Author Organization [facility] Address [address] [place] [phone] Care Team Providers Care Supervisor Specialty Plant Name Role Phone Trevor Conley MD Primary Care Provider Naveen Flores Jr REASON FOR VISIT eliquis note Encounters Encounter Location Date Provider Diagnosis [facility] [address] [place] [phone] 05/19/2024 Naveen Yang Jr Plan Of Treatment No Information Progress Notes * FERMIN PEREZ ADOB:1975 (48 yo M)Acc No.[id number]:05/19/2024 Patient:?FERMIN PEREZ :1975???Age:48 Y???Sex:Male Address:[address] [place] [phone] * true * Date:? Generated for Tammyi fatuma/Danny/eTransmitting on:?09/11/2024 03:39 PM EDT
[2024-09-11 15:51] LABS: Glucose, Whole Blood 115 mg/dL (60-115)
== END 2024-09-11 16:09 | disposition home or self-care (01) ==
LOC: HO.ENCR 15:37
PROVIDERS: PCP Internal Medicine; Visit Provider Nurse Practitioner Adult Health
DX: E11.9 Type 2 diabetes mellitus without complications (principal)
CPT/HCPCS: 99214; G2211

== ENCOUNTER → 2024-09-11 15:36 | Outpatient (BNVA) | payer MEDICARE, MEDICAID, SELFPAY | PROVIDERS: PCP Internal Medicine; Visit Provider Nurse Practitioner Adult Health | DX: E11.9 Type 2 diabetes mellitus without complications (principal); Z79.4 Long term (current) use of insulin | CPT/HCPCS: 82947; 99212 ==

== ENCOUNTER 2024-09-23 14:51 | Outpatient (AMB) | payer MEDICARE, MEDICAID, SELFPAY ==
--- NOTE | 2024-09-23 14:52 | A.OFFVIS_ITS ---
Vital Signs 09/23/24 14:53 Height 5 ft 7 in Weight 167 lb 8.821 oz BMI 26.2 BP 118/78 Blood Pressure Location Rt brachial Position Sitting Pulse 109 H Pulse Source Pulse Oximeter Pulse Oximetry (%) 96 Oxygen Delivery Method Room Air Intake Visit Reasons: Diabetes insipidus Intake Note: Patient present today for Diabetes insipidus office visit. Air Brake Worker Required: No Accompanied by: Mother Allergies Penicillins [PENICILLINS] Allergy (Unknown, Verified 09/23/24 14:56) Unknown HPI Comments Details: 49-year-old male coming in today for follow up of diabetes insipidus. He is already established at our practice for follow up of insulin dependent type 2 diabetes mellitus, follows with Shireen Means APRN, this was not addressed today by me. Here today with mom Nathalia and caregiver Vickey. Was seeing nemesio Barrett in [place], [place] DM in 2002 Diabetes insipidius per mother diagnosed in 20s, was found to have high sodium levels on blood work and had symptoms of increased polyuria, increased thirst . Was never started on desmopressin Doesnt think a water deprivation test was done Feb 2020 during urosepsis, was found to be hypernatremic per mom Denies nocturia No increased urination His caregiver explains that he is thirsty all the time though, but they have restricted his water intake to 2 gal per day. No headaches, no visual changes Wt stable No lightheadedness , dizziness Does have fatigue No heat or cold intolerance No palpitations tremors : chronic [place] used from age 16 to 30 years Off it since age 30 years. Interval history 09/23/2024 Here with mother today Forgot to do blood work and urine tests Denies nocturia, no increased urination Physical exam General: sitting comfortably in no acute distress HEENT: normocephalic/atraumatic, moist oral mucosa Neck: supple, symmetrical, Cardiac: normal heart sounds Pulm: normal breath sounds B/L, no added breath sounds Abd: not distended, no tenderness Extremities: no edema, no signs of myxedema Laboratory Tests 08/05/24 12:50 Sodium 142 PFSH Medical History Auditory hallucination Insulin dependent type 2 diabetes mellitus Gout Hyperlipidemia Bipolar 1 disorder Saddle pulmonary embolus Diabetes insipidus High cholesterol Anxiety PTSD (post-traumatic stress disorder) Schizo affective schizophrenia Surgical History History of colonoscopy (~05/23/24) Hx of tooth extraction Hx of excision of mass Family History Mother Fibromyalgia Post traumatic stress disorder (PTSD) Anxiety Osteopenia High cholesterol Anemia Cerebellar ataxia Social History Household Members: Foster Family Household Members Other:: Jarvis and Amarilis foster Housing: Other Housing Other:: shelter/Assisted living Do you presently have visiting nurse or other home services: Yes Unable to assess alcohol history related to: Unknown Alcohol intake: never Patient Tobacco Use Status: Never used Tobacco e-Cigarette/Vaping Use: Never Used Substance Use Type: Caffiene Advance Directives Date on File: 07/05/23 service: No Current occupational status: disabled Sexual orientation: Don't Know Cognitive needs: No Hearing needs: No Vision needs: No Physical Exam Vital Signs: Last Vital Signs Pulse 109 H 09/23/24 14:53 BP 118/78 09/23/24 14:53 Pulse Ox 96 09/23/24 14:53 Oxygen Delivery Method Room Air 09/23/24 14:53 BMI result Body Mass Index 26.2 Assessment & Plan Assessment & Plan (1) Diabetes insipidus: Code(s): E23.2 - Diabetes insipidus Category: Medical Plan: 49-year-old male with history significant for schizophrenia, bipolar disorder, insulin dependent type 2 diabetes mellitus, hyperlipidemia who is coming in today for follow up of diabetes insipidus. He already establish at your practice for insulin dependent diabetes mellitus. This was not addressed today. Patient used to be on lithium from age 16 to age 30. Per patient's mom he was diagnosed with diabetes insipidus in his 20s when he was found to have elevated sodium levels. Apparently has never been on desmopressin. Possibly could have been nephrogenic diabetes insipidus. However currently patient denies any nocturia or polyuria and he is not even on desmopressin and his sodium levels have been within good range recently. Caregiver does describe increased thirst but water intake is limited to 2 gal per day. At this time we will obtain records from previous trail maintenance worker to see how was diagnosis of diabetes insipidus made and what is his prior history. Unlikely that with a sodium levels being normal, and no complains of nocturia or polyuria that he has diabetes insipidus. I will also check his urine and serum osmolality along with serum sodium and urine sodium levels. We were unable to obtain records from previous trail maintenance worker. He forgot to do blood work and urine test. Plan: - urine sodium, urine osmolality, serum sodium, serum osmolality orders in place, we will reach out with the results -follow up in 4-5 weeks Plan See above Coding Level of Care Code Est Pt Level 3 (18438) Diagnoses Diabetes insipidus E23.2
[2024-09-23 14:53] VITALS: BP 118/78; PULSE 109; O2SAT 96; BMI 26.2
--- OUTSIDE RECORDS SUMMARY | 2024-09-23 16:34 | XMS_ITS ---
Author Organization [facility] Address [address] [place] [phone] Care Team Providers Care Visiting Nurse Name Role Phone Trevor Conley MD Primary Care Provider Naveen Flores Jr REASON FOR VISIT eliquis note Encounters Encounter Location Date Provider Diagnosis [facility] [address] [place] [phone] 05/19/2024 Naveen Yang Jr Plan Of Treatment No Information Progress Notes * FERMIN PEREZ ADOB:1975 (48 yo M)Acc No.[id number]:05/19/2024 Patient:?FERMIN PEREZ :1975???Age:48 Y???Sex:Male Address:[address] [place] [phone] * true * Date:? Generated for Luz burris/Danny/eTransmitting on:?09/23/2024 04:34 PM EDT
== END 2024-09-23 15:37 | disposition home or self-care (01) ==
LOC: HO.ENCR 14:52
PROVIDERS: Visit Provider Student in an Organized Health Care Education/Training Program
DX: E23.2 Diabetes insipidus (principal)
CPT/HCPCS: 99213

== ENCOUNTER 2024-09-23 14:51 | Outpatient (REF) | payer MEDICARE, MEDICAID, SELFPAY ==
[2024-09-23 17:34] LABS: Osmolality, Serum 300 mosm/kg (281-305)
[2024-09-23 17:40] LABS: Osmolality Urine 130 mosm/kg (373-1093)
[2024-09-23 17:43] LABS: Anion Gap 14 (12-20); Blood Urea Nitrogen 15 mg/dL (9-16); Carbon Dioxide 26 mmol/L (22-29); Chloride 105 mmol/L (96-108); Estimated Glomerular Filt Rate > 60; Glucose Random 128 mg/dL (60-115); Sodium 141 mmol/L (135-145); Sodium Urine Random < 20.0 mmol/L
[2024-09-24 04:19] LABS: C Peptide 4.75 ng/mL (0.80-3.85)
[2024-10-01 05:03] LABS: Islet Cell Antibody Screen NEGATIVE (NEGATIVE)
[2024-10-01 18:13] LABS: Glutamic acid decarboxylase Ab <5 IU/mL (<5)
== END 2024-09-23 14:52 | disposition home or self-care (01) ==
LOC: HO.LAB 14:51
PROVIDERS: Absent Provider Nurse Practitioner Adult Health; Visit Provider Student in an Organized Health Care Education/Training Program
DX: E23.2 Diabetes insipidus (principal); E11.9 Type 2 diabetes mellitus without complications
CPT/HCPCS: 36415; 80048; 83930; 83935; 84300; 84681; 86341; 99212

== ENCOUNTER 2024-10-02 07:17 | Outpatient (REF) | payer MEDICARE, MEDICAID, SELFPAY ==
[2024-10-02 09:47] LABS: MANUAL DIFF FLAG NO
[2024-10-02 09:59] LABS: Basophils Absolute Auto 0.1 X10*3/uL (0.0-0.2); Basophils Percent Auto 0.8 % (0-2); Eosinophils Absolute Auto 0.9 X10*3/uL (0.0-0.4); Eosinophils Percent Auto 9.8 % (0-4); Hematocrit 42.5 % (42.0-52.0); Imm Gran Abs Auto 0.03 X10*3/uL (0.00-0.03); Imm Gran Pct Auto 0.3 % (0.0-0.4); Lymphocytes Absolute Auto 2.4 X10*3/uL (1.2-4.9); Lymphocytes Percent Auto 25.6 % (20-40); Mean Corpuscular HGB Conc 32.9 g/dl (31.0-36.0); Mean Corpuscular Hemoglobin 28.3 pg (27.0-33.0); Monocytes Absolute Auto 0.5 X10*3/uL (0.1-1.2); Monocytes Percent Auto 5.1 % (2-11); Neutrophils Absolute Auto 5.4 x10*3/uL (2.0-8.3); Neutrophils Percent Auto 58.4 % (45-73); Platelet Count 199 X10*3/uL (160-400); Red Blood Count 4.94 X10*6/uL (4.60-5.80); Red Cell Distribution Width 13.5 % (11.0-16.0); White Blood Count 9.3 X10*3/uL (4.8-10.8)
== END 2024-10-02 07:18 | disposition home or self-care (01) ==
LOC: HO.10HDL 07:17
PROVIDERS: Visit Provider Psychiatry & Neurology Psychiatry
DX: Z79.899 Other long term (current) drug therapy (principal)
CPT/HCPCS: 36415; 85025

== ENCOUNTER 2024-10-15 16:02 | Outpatient (AMB) | payer MEDICARE, MEDICAID, SELFPAY ==
--- NOTE | 2024-10-15 16:03 | MHC.PC.OV ---
Vital Signs 10/15/24 16:07 Height 5 ft 7 in Weight 74.843 kg BMI 25.8 BP 122/94 H Respiration 16 Pulse 102 H Pulse Source Pulse Oximeter Temp 98.3 F Temp Source Temporal Artery Scan Pulse Oximetry (%) 99 Oxygen Delivery Method Room Air Intake Visit Reasons: 3 month F/U Campaign Management Specialist Required: No Accompanied by: Mother Allergies Penicillins (PENICILLINS) Allergy (Unknown, Verified 10/15/24 16:03) Unknown Medication List - Last Reconciled 10/15/24 by NAZIA Nicholson allopurinol 100 mg PO DAILY apixaban (Eliquis) 2.5 mg PO BID ascorbic acid (vitamin C) (Vitamin C) 1 tab PO DAILY benztropine 1 mg PO BID blood sugar diagnostic (FreeStyle Lite Strips) As directed tests 3X day cholecalciferol (vitamin D3) (Vitamin D3) 1 cap PO DAILY clonazepam 0.5 mg PO BID clozapine 300 mg (3 x 100 mg) PO BEDTIME fluticasone propionate 50 mcg/actuation 1 spray intranasal BID haloperidol 5 mg PO BEDTIME insulin aspart U-100 (Novolog FlexPen U-100 Insulin aspart) 1 sliding scale dose subcut USEASDIRECTD 30 days MDD 54 insulin glargine (Basaglar KwikPen U-100 Insulin) 36 units subcut QPM lancets (FreeStyle Lancets) 3 times a day prn sensor failure or to confirm glucose dispense as 33 guage if available metformin 1 tab PO BID multivitamin 1 tab PO DAILY pen needle, diabetic qid sertraline 1.5 tabs PO DAILY simvastatin 1 tab PO DAILY Tobacco use date assessed: 08/13/24 Dental Screening Dental Screen Date: 08/13/24 HPI HPI Comments History of Present Illness Details 49-year-old male with history of schizoaffective disorder, intellectual disability, history of saddle pulmonary embolus, type 2 diabetes, history of diabetes insipidus presents to the office today accompanied by his mother, who is his legal guardian, for management of chronic conditions and to establish care. Schizoaffective disorder/PTSD-recently hospitalized at [facility] for what his mother describes as a catatonic episode from 08/05-08/08. Reportedly, he all of a sudden became confused and minimally responsive. He improved without intervention and no changes to medications were made while on the unit. He has not had any recurrent episodes and last episode was about 9 years ago. He does have auditory hallucinations chronically but reports the voices are more positive and he is not distressed by these. There is occasional visual hallucinations such as flash of light or shadow of a person but again is not distressing. He follows with [facility]ry and [facility]. Compliant with Cogentin, clonazepam, Clozaril, Haldol, sertraline. His psychiatrist is managing Clozaril levels. 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 Denies any GI bleeding, easy bruisability, or excessive bleeding. Type 2 diabetes-last hemoglobin A1c 9.9%. Using 36 units Basaglar as well as NovoLog on sliding scale. Has a CGM and glucose levels have been improving. Following with endocrinology. History of diabetes insipidus-likely related to lithium use And has resolved per endocrinology Concerns: none Health Maintenance: Last colonoscopy 04/2024 with 10 year follow-up ROS: General: No fevers, malaise, unintentional weight loss HEENT: No blurred vision, diplopia. No sore throat, nasal congestion, rhinorrhea, sinus pain, ear pain Cardiovascular: No chest pain, palpitations, or leg edema Respiratory: No shortness of breath, wheezing, cough GI: No abdominal pain, nausea, vomiting, diarrhea, constipation, melena, hematochezia : No dysuria, hematuria, increased urinary frequency, decreased urinary output MSK: No myalgia, back pain Neuro: No headaches, weakness, paresthesias Skin: No rashes or lesions EXAM: Constitutional - Awake and Alert, No apparent distress Eyes - PERRL Cardiovascular - S1S2, RRR, No edema Respiratory - Normal lung expansion, Normal respiratory effort, No respiratory distress, CTA bilaterally Extremities - no calf tenderness bilaterally, no swelling Skin - Warm/Dry Neurological - Alert & oriented x3 Psychological - Appropriate affect [facility] Medical History (Updated 10/15/24 @ 17:29 by NAZIA Nicholson) 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 Gout Hyperlipidemia Bipolar 1 disorder Diabetes insipidus High cholesterol Anxiety PTSD (post-traumatic stress disorder) Schizo affective schizophrenia Surgical History History of colonoscopy (~05/23/24) Hx of tooth extraction Hx of excision of mass Family History Mother Fibromyalgia Post traumatic stress disorder (PTSD) Anxiety Osteopenia High cholesterol Anemia Cerebellar ataxia Social History Household Members: Foster Family Household Members Other:: Jarvis and Amarilis foster Housing: Other Housing Other:: alf/Assisted living Do you presently have visiting nurse or other home services: Yes Unable to assess alcohol history related to: Unknown Alcohol intake: never Patient Tobacco Use Status: Never used Tobacco e-Cigarette/Vaping Use: Never Used Substance Use Type: Caffiene Advance Directives Date on File: 07/05/23 service: No Current occupational status: disabled Sexual orientation: Don't Know Cognitive needs: No Hearing needs: No Vision needs: No Questionnaire Thrive Questionnaire Date Thrive assessed: 08/13/24 MUNIR-7 AMB Questionnaire MUNIR-7 Date MUNIR - 7 assessed: 08/13/24 Source: Developed by Drs. Zbigniew Walton, Isabela Bains, Eddie Vallejo and colleagues, with an educational bev from [employer]. Physical exam (Primary Care) Vital Signs: Last Vital Signs Temp 98.3 F 10/15/24 16:07 Pulse 102 H 10/15/24 16:07 Resp 16 10/15/24 16:07 BP 122/94 H 10/15/24 16:07 Pulse Ox 99 10/15/24 16:07 Oxygen Delivery Method Room Air 10/15/24 16:07 BMI result Body Mass Index 25.8 Tobacco/Smoking Status: Tobacco use Status Tobacco use date assessed 08/13/24 10/15/24 16:06 Patient Tobacco Use Status Never used Tobacco 10/15/24 16:06 e-Cigarette/Vaping Use Never Used 10/15/24 16:06 Thrive Assessment: Date of Thrive Assessment Date Thrive assessed 08/13/24 10/15/24 16:06 Coding Level of Care Code New Pt Level 4 (21881) Complex EM visit Add On G2211 Diagnoses Schizo affective schizophrenia F25.9 Insulin dependent type 2 diabetes mellitus E11.9; Z79.4 Diabetes insipidus E23.2 Saddle pulmonary embolus I26.92 Assessment & Plan Assessment & Plan (1) Schizo affective schizophrenia: Code(s): F25.9 - Schizoaffective disorder, unspecified Category: Medical Plan: Stable. Reviewed last Psychiatry notes. Continue medications as prescribed and follow with psychiatry/counseling as scheduled. Continue with regular Clozaril levels (2) Insulin dependent type 2 diabetes mellitus: Code(s): E11.9 - Type 2 diabetes mellitus without complications; Z79.4 - alf (current) use of insulin Category: Medical Plan: Improving control. Continue with CGM and follow-up with endocrinology as scheduled. Continue Basaglar and NovoLog on sliding scale. Continue metformin. Continue with regular eye exams and foot exams (3) Diabetes insipidus: Code(s): E23.2 - Diabetes insipidus Category: Medical Plan: Resolved following discontinuation of lithium (4) Saddle pulmonary embolus: Comment: september 2016, on coumadin indefinitely Code(s): I26.92 - Saddle embolus of pulmonary artery without acute cor pulmonale Category: Medical Plan: Continue Eliquis indefinitely Plan Follow-up in the office in 4 months. Plan as above Medications: New apixaban (Eliquis) 2.5 mg PO BID 180 tabs 1RF
[2024-10-15 16:07] VITALS: BP 122/94; PULSE 102; RESP 16; TEMP 36.8; O2SAT 99; BMI 25.8
--- OUTSIDE RECORDS SUMMARY | 2024-10-15 18:38 | XMS_ITS | Patient Health Record ---
[facility] Address [address] [place] [address] Care Team Providers Care Notch Machine Operator Name Role Phone Reji Keith Primary Care Provider [phone] Marcus Tracey Unavailable [phone] Allergies Allergen (clinical drug ingredient) Drug/Non Drug [...] Problem Acquired hammer toe of right foot (47867572003014 05) Other hammer toe(s) (acquired), right foot (M20.41) Active confirmed Response to treatment,I mprovement Problem Acquired hammer toe of left foot (99596732294255 03) Other hammer toe(s) (acquired), left foot (M20.42) Active confirmed Response to treatment,I mprovement Problem Type 2 diabetes mellitus without complication (047412345) Type 2 diabetes mellitus without complication (E11.9) Active confirmed Vital Signs Blood pressure diastolic 70 mm Hg 08/19/2024 Height 5ft 6in in 08/19/2024 Blood pressure systolic 115 mm Hg 08/19/2024 Weight 166 lbs 08/19/2024 BMI 26.79 kg/m2 08/19/2024 Procedures Procedure Date Ordered Date Performed Result Body Sit e 76755-YKZYJFN NAIL, 6 OR MORE 05/13/2024 N/A 16843-[id number] NAIL, 6 OR MORE 08/19/2024 N/A Encounters Encounter Location Date Provider Diagnosis [address] [address] 05/13/2024 Marcus Kyung Pain in right toe(s) M79.674 ; Tinea unguium B35.1 ; Pain in left toe(s) M79.675 ; Type 2 diabetes mellitus without complication E11.9 ; Other hammer toe(s) (acquired), right foot M20.41 and Other hammer toe(s) (acquired), left foot M20.[address] [address] 08/19/2024 Marcus Kyung Pain in right toe(s) M79.674 ; Tinea unguium B35.1 ; Pain in left toe(s) M79.675 and Type 2 diabetes mellitus without complication E11.[address] [address] 12/25/2023 Marcus Kyung [address] [address] 02/18/2024 Marcus Pollockier Assessments Encounter Date Diagnosis (ICD Code) Assessment [...] Treatment Pending Test Test Name Order Date [id number] NAIL, 6 OR MORE 02/03/2020 [id number] NAIL, 6 OR MORE 05/07/2020 [id number] NAIL, 6 OR MORE 08/10/2020 [id number] NAIL, 6 OR MORE 11/26/2020 [id number] NAIL, 6 OR MORE 03/04/2021 [id number] NAIL, 6 OR MORE 06/07/2021 [id number] NAIL, 6 OR MORE 09/06/2021 [id number] NAIL, 6 OR MORE 01/20/2022 [id number] NAIL, 6 OR MORE 06/13/2022 [id number] NAIL, 6 OR MORE 09/19/2022 [id number] NAIL, 6 OR MORE 12/26/2022 [id number] NAIL, 6 OR MORE 03/27/2023 [id number] NAIL, 6 OR MORE 06/26/2023 [id number] NAIL, 6 OR MORE 09/25/2023 [id number] NAIL, 6 OR MORE 05/13/2024 [id number] NAIL, 6 OR MORE 08/19/2024 Next Appt Details Provider Name:Marcus Tracey , 11/25/2024 04:00:00 PM, [address] [place], [address], Insurance Providers Payer Name Payer Address Payer Phone Subscriber Number Group Number Insured Name Patient Relationship to Insured Coverage Start Date Coverage End Date Medicare [facility] [employer] [address] [place] [address] [id number] Gautam Simmons Self - patient is the insured Medical (General) History Medical History History ICD Code Anxiety Depression Gout Psychiatric disorder Chicken pox type II diabetes ptsd CAD (Cholesterol) Mild Retardation Surgical History Surgery Date(Month/Year) Hospitalization History Reason Date(Month/Year) [facility] ER sodium too high 12/23
== END 2024-10-15 16:42 | disposition home or self-care (01) ==
LOC: HO.HMCHD 16:03
PROVIDERS: PCP Internal Medicine; Visit Provider Physician Assistant
DX: F25.9 Schizoaffective disorder, unspecified (principal); E11.9 Type 2 diabetes mellitus without complications; Z79.4 Long term (current) use of insulin; E23.2 Diabetes insipidus; I26.92 Saddle embolus of pulmonary artery without acute cor pulmonale

== ENCOUNTER → 2024-10-15 16:02 | Outpatient (BNVA) | payer MEDICARE, MEDICAID, SELFPAY | PROVIDERS: PCP Internal Medicine; Visit Provider Physician Assistant | DX: F25.9 Schizoaffective disorder, unspecified (principal); E11.9 Type 2 diabetes mellitus without complications; I26.92 Saddle embolus of pulmonary artery without acute cor pulmonale; Z79.4 Long term (current) use of insulin; Z79.01 Long term (current) use of anticoagulants | CPT/HCPCS: 99202 ==

== ENCOUNTER 2024-11-03 15:08 | Outpatient (AMB) | payer MEDICARE, MEDICAID, SELFPAY ==
--- OUTSIDE RECORDS SUMMARY | 2024-05-23 07:40 | XMS_ITS ---
Author Organization [facility] Address [address] [place] [address] Care Team Providers Care Club Former Name Role Phone Yael (RETIRED) Trevor ALONZO Primary Care Provide r Naveen Escobar Jr [phone] REASON FOR VISIT screening Encounters Encounter Location Date Provider Diagnosis [facility] Outpatient [address] [place] [phone] 05/23/2024 Naveen Yang Jr Colon cancer screening Z12.11 Assessments Encounter Date Diagnosis (ICD Code) Assessment Notes Treatment Notes Treatment Clinical Notes Section Notes 05/23/2024 Colon cancer screening (ICD-10 - Z12.11) Plan Of Treatment No Information Progress Notes * ANA FERMIN ADOB:1975 (49 yo M)Acc No.[id number]:05/23/2024 COLON WITH MAC Patient: FERMIN RODRIGUEZ Provider: Twan Yang MD :1975 A ge:48 Y S ex:Male Date:05/23/2024 Address:[address] [place], [place] [phone] Pcp:Trevor Conley (RETIRED )MD Subjective: * Chief [...] 05/23/2024 Generated for Luz burris/Danny/Nadine on: 0 11/03/2024 04:26 PM EDT
[2024-11-03 15:10] VITALS: BP 118/66; PULSE 94; O2SAT 98; BMI 25.7
--- NOTE | 2024-11-03 15:10 | A.OFFVIS_ITS ---
Vital Signs 11/03/24 15:10 Height 5 ft 7 in Weight 164 lb 0.383 oz BMI 25.7 BP 118/66 Blood Pressure Location Lt brachial Position Sitting Pulse 94 Pulse Source Pulse Oximeter Pulse Oximetry (%) 98 Oxygen Delivery Method Room Air Intake Visit Reasons: Diabetes insipidus Intake Note: Patient present today for diabetes insipidus office visit. Accompanied by: Mother Allergies Penicillins (PENICILLINS) Allergy (Unknown, Verified 11/03/24 15:14) Unknown HPI Comments Details: 49-year-old male coming in today for follow up of diabetes insipidus. He is already established at our practice for follow up of insulin dependent type 2 diabetes mellitus, follows with Shireen Means APRN, this was not addressed today by me. Here today with mom Nathalia and caregiver Vickey. Was seeing nemesio Barrett in [place], [place] DM in 2002 Diabetes insipidius per mother diagnosed in 20s, was found to have high sodium levels on blood work and had symptoms of increased polyuria, increased thirst . Was never started on desmopressin Doesnt think a water deprivation test was done Feb 2020 during urosepsis, was found to be hypernatremic per mom Denies nocturia No increased urination His caregiver explains that he is thirsty all the time though, but they have restricted his water intake to 2 gal per day. No headaches, no visual changes Wt stable No lightheadedness , dizziness Does have fatigue No heat or cold intolerance No palpitations tremors : chronic [place] used from age 16 to 30 years Off it since age 30 years. Interval history 09/23/2024 Here with mother today Forgot to do blood work and urine tests Denies nocturia, no increased urination Physical exam General: sitting comfortably in no acute distress HEENT: normocephalic/atraumatic, moist oral mucosa Neck: supple, symmetrical, Cardiac: normal heart sounds Pulm: normal breath sounds B/L, no added breath sounds Abd: not distended, no tenderness Extremities: no edema, no signs of myxedema Laboratory Tests 08/05/24 12:50 Sodium 142 Laboratory Tests 08/05/24 09/23/24 12:50 15:55 Sodium 142 141 Potassium 4.3 Estimated GFR > 60 Osmolality 300 Urine Osmolality 130 L Ur Random Sodium < 20.0 [facility] Medical History (Updated 10/15/24 @ 17:29 by NAZIA Nicholson) 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 Gout Hyperlipidemia Bipolar 1 disorder Diabetes insipidus High cholesterol Anxiety PTSD (post-traumatic stress disorder) Schizo affective schizophrenia Surgical History History of colonoscopy (~05/23/24) Hx of tooth extraction Hx of excision of mass Family History Mother Fibromyalgia Post traumatic stress disorder (PTSD) Anxiety Osteopenia High cholesterol Anemia Cerebellar ataxia Social History Household Members: Foster Family Household Members Other:: Jarvis and Amarilis foster Housing: Other Housing Other:: retirement/Assisted living Do you presently have visiting nurse or other home services: Yes Unable to assess alcohol history related to: Unknown Alcohol intake: never Patient Tobacco Use Status: Never used Tobacco e-Cigarette/Vaping Use: Never Used Substance Use Type: Caffiene Advance Directives Date on File: 07/05/23 service: No Current occupational status: disabled Sexual orientation: Don't Know Cognitive needs: No Hearing needs: No Vision needs: No Physical Exam Vital Signs: BMI result Body Mass Index 25.7 Assessment & Plan Assessment & Plan (1) Diabetes insipidus: Code(s): E23.2 - Diabetes insipidus Category: Medical Plan: 49-year-old male with history significant for schizophrenia, bipolar disorder, insulin dependent type 2 diabetes mellitus, hyperlipidemia who is coming in today for follow up of diabetes insipidus. He already establish at your practice for insulin dependent diabetes mellitus. This was not addressed today. Patient used to be on lithium from age 16 to age 30. Per patient's mom he was diagnosed with diabetes insipidus in his 20s when he was found to have elevated sodium levels. Apparently has never been on desmopressin. Possibly could have been nephrogenic diabetes insipidus. However currently patient denies any nocturia or polyuria and he is not even on desmopressin and his sodium levels have been within good range recently. Caregiver does describe increased thirst but water intake is limited to 2 gal per day. This is about 7 L. Unlikely t hat with a sodium levels being normal, and no complains of nocturia or polyuria that he has diabetes insipidus. Labs showed normal serum osmolality along with serum sodium . Urine osmolality was low. However at this time given no complains of polyuria or nocturia. I will hold off on doing a water deprivation test. We were unable to obtain records from previous operating manager. I did tell him to limit water intake to 3-4 L but mostly try to drink to thirst not out of habit. He was also following at our practice for insulin dependent diabetes mellitus, however has provider Shireen Means APRN has recently retired. I will have him make a follow up with me for establishing for diabetes mellitus. Plan See above Coding Level of Care Code Est Pt Level 3 (06202) Diagnoses Diabetes insipidus E23.2
--- OUTSIDE RECORDS SUMMARY | 2024-11-03 16:26 | XMS_ITS | Patient Health Record ---
Author Organization [facility] Address [address] [place] [address] Care Team Providers Care Superintendent [employer] Name Role Phone Reji Keith Primary Care Provider [phone] Marcus Tracey Unavailable [phone] Allergies Allergen (clinical drug ingredient) Drug/Non Drug [...] Once a day; Duration: 30 day(s) Active Eliquis Active Ammonium Lactate 12 % 1 application Exte rnally Twice a day; Duration: 30 days Active Fiber Active Extra Depth [...] with a carlee l Orally Once a day; Duration: 30 days Active Flonase Active Jardiance 25 MG 1 tablet Orally Once a day; Duration: 30 day(s) Not-Rodrigo ing glipiZIDE XL 2.5 MG 1 tablet with breakf ast Orally Once a day; Duration: 30 day(s) Active Warfarin Sodium 2.5 MG 1 tablet Orally O nce a day; Duration: 30 day(s) Not-Rodrigo ing Immunizations Vaccine Route Administration Date Status Comme [...] Problem Acquired hammer toe of right foot (77775348103717 05) Other hammer toe(s) (acquired), right foot (M20.41) Active confirmed Response to treatment,I mprovement Problem Acquired hammer toe of left foot (35376678241295 03) Other hammer toe(s) (acquired), left foot (M20.42) Active confirmed Response to treatment,I mprovement Problem Type II diabetes mellitus without complication (098044231) Type 2 diabetes mellitus without complication (E11.9) Active confirmed Vital Signs Blood pressure diastolic 70 mm Hg 08/19/2024 Height 5ft 6in in 08/19/2024 Blood pressure systolic 115 mm Hg 08/19/2024 Weight 166 lbs 08/19/2024 BMI 26.79 kg/m2 08/19/2024 Procedures Procedure Date Ordered Date Performed Result Body Sit e [id number] NAIL, 6 OR MORE 05/13/2024 N/A [id number] NAIL, 6 OR MORE 08/19/2024 N/A Encounters Encounter Location Date Provider Diagnosis [address] [address] 05/13/2024 Marcus Kyung Pain in right toe(s) M79.674 ; Tinea unguium B35.1 ; Pain in left toe(s) M79.675 ; Type 2 diabetes mellitus without complication E11.9 ; Other hammer toe(s) (acquired), right foot M20.41 and Other hammer toe(s) (acquired), left foot M20.[address] [address] 08/19/2024 Marcus Kyung Pain in right toe(s) M79.674 ; Tinea unguium B35.1 ; Pain in left toe(s) M79.675 and Type 2 diabetes mellitus without complication E11.[address] [address] 12/25/2023 Marcus Tracey [address] [address] 02/18/2024 Marcus Tracey Assessments Encounter Date Diagnosis [...] Treatment Pending Test Test Name Order Date [id number] NAIL, 6 OR MORE 02/03/2020 [id number] NAIL, 6 OR MORE 05/07/2020 [id number] NAIL, 6 OR MORE 08/10/2020 [id number] NAIL, 6 OR MORE 11/26/2020 [id number] NAIL, 6 OR MORE 03/04/2021 [id number] NAIL, 6 OR MORE 06/07/2021 [id number] NAIL, 6 OR MORE 09/06/2021 [id number] NAIL, 6 OR MORE 01/20/2022 [id number] NAIL, 6 OR MORE 06/13/2022 [id number] NAIL, 6 OR MORE 09/19/2022 [id number] NAIL, 6 OR MORE 12/26/2022 [id number] NAIL, 6 OR MORE 03/27/2023 [id number] NAIL, 6 OR MORE 06/26/2023 [id number] NAIL, 6 OR MORE 09/25/2023 [id number] NAIL, 6 OR MORE 05/13/2024 [id number] NAIL, 6 OR MORE 08/19/2024 Next Appt Details Provider Name:Marcus Tracey , 11/25/2024 04:00:00 PM, [address] [facility], [place], [address], Insurance Providers Payer Name Payer Address Payer Phone Subscriber Number Group Number Insured Name Patient Relationship to Insured Coverage Start Date Coverage End Date Medicare [facility] [address] [place] [address] [id number] Gautam Simmons Self - patient is the insured Medical (General) History Medical History History ICD Code Anxiety Depression Gout Psychiatric disorder Chicken pox type II diabetes ptsd CAD (Cholesterol) Mild Retardation Surgical History Surgery Date(Month/Year) Hospitalization History Reason Date(Month/Year) [facility] ER sodium too high 12/23
--- OUTSIDE RECORDS SUMMARY | 2024-11-03 16:26 | XMS_ITS | Clinical Summary ---
Author Organization [employer] Address [address] [facility] [address] [place] [address] Care Team Providers Care Dictionary Editor Name Role Phone Unavailable Primary Care Provider [...] Panel 1977 SDOH Screening 1977 Sigmoidoscopy 1977 Disability Screening 1977 Alcohol/Substance Use Screening 1989 Tobacco Screening 1989 Family Planning (PISQ) 1992 Hepatitis C Screening 07/05/1995 DTaP/Tdap/Td Vaccines (1 - Tdap) 1996 Hepatitis B Vaccines (1 of 3 - 19+ 3-dose series) 1996 Dental Prophylaxis 03/23/2022 09/20/2021, 1 06/15/2018, 05/11/2017, Additional history exists Dental Oral Exam 12/19/2023 06/19/2023, 03/2022, 04/14/2019, Additional history exists COVID-19 Vaccine ( season) 2023 05/02/2021, 08/19/2020, 07/29/2020 Dental X-Ray: Bitewings 06/20/2024 06/19/19 24, 09/01/2021, 04/14/2019, Additional history exists Influenza Vaccine (#1) 2024 Dental X-Ray: Full Mouth 06/20/2026 024, 09/01/2021, [...] patient's age to complete this topic Meningococcal B Vaccine Aged Out No l onger eligible based on patient's age to complete this topic Meningococcal Vaccine Aged Out No urbano jocelyn eligible based on patient's age to complete this topic Pneumococcal Vaccine: Pediatrics (0 to 5 Years) and At-Risk Patients (6 to 49) Years Aged Out No longer eligible based on [...] Most Recently Relevant to Health Maintenance Insurance [facility] MEDICAID STAND ADULT
== END 2024-11-03 15:43 | disposition home or self-care (01) ==
LOC: HO.ENCR 15:08
PROVIDERS: Visit Provider Student in an Organized Health Care Education/Training Program
DX: E23.2 Diabetes insipidus (principal)
CPT/HCPCS: 99213

== ENCOUNTER → 2024-11-03 15:08 | Outpatient (BNVA) | payer MEDICARE, MEDICAID, SELFPAY | PROVIDERS: Visit Provider Student in an Organized Health Care Education/Training Program | DX: E23.2 Diabetes insipidus (principal) | CPT/HCPCS: 99212 ==

== ENCOUNTER 2024-11-07 06:41 | Outpatient (REF) | payer MEDICARE, MEDICAID, SELFPAY ==
--- OUTSIDE RECORDS SUMMARY | 2024-05-23 07:40 | XMS_ITS ---
Author Organization [facility] Address [address] [place] [address] Care Team Providers Care Glue Line Operator Name Role Phone Yael (RETIRED) Trevor ALONZO Primary Care Provide r Naveen Escobar Jr [phone] REASON FOR VISIT screening Encounters Encounter Location Date Provider Diagnosis [facility] Out[place] [address] [place] [phone] 05/23/2024 Naveen Yang Jr Colon cancer screening Z12.11 Assessments Encounter Date Diagnosis (ICD Code) Assessment Notes Treatment Notes Treatment Clinical Notes Section Notes 05/23/2024 Colon cancer screening (ICD-10 - Z12.11) Plan Of Treatment No Information Progress Notes * ANA FERMIN ADOB:1975 (49 yo M)Acc No.[id number]:05/23/2024 COLON WITH MAC Patient: FERMIN RODRIGUEZ Provider: Twan Yang MD :1975 A ge:48 Y S ex:Male Date:05/23/2024 Address:[address] [place], [place] [phone] Pcp:Trevor Cnoley (RETIRED )MD Subjective: * Chief Complaints: * [...] 05/23/2024 Generated for Luz burris/Danny/Nadine on: 0 11/07/2024 06:45 AM EDT
--- OUTSIDE RECORDS SUMMARY | 2024-11-07 06:45 | XMS_ITS | Clinical Summary ---
Author Organization [employer] Address [address] [facility] [address] [place] [address] Care Team Providers Care Surveillance Inspector Name Role Phone Unavailable Primary Care Provider [...] Most Recently Relevant to Health Maintenance Insurance [facility] MEDICAID STAND ADULT
[2024-11-07 06:51] LABS: MANUAL DIFF FLAG NO
[2024-11-07 07:10] LABS: Hematocrit 43.5 % (42.0-52.0); Hemoglobin 14.7 g/dl (14.0-18.0); Imm Gran Abs Auto 0.03 X10*3/uL (0.00-0.03); Imm Gran Pct Auto 0.3 % (0.0-0.4); Lymphocytes Absolute Auto 2.6 X10*3/uL (1.2-4.9); Mean Corpuscular HGB Conc 33.8 g/dl (31.0-36.0); Mean Corpuscular Hemoglobin 29.2 pg (27.0-33.0); Mean Corpuscular Volume 86.3 fL (80.0-98.0); NRBC Abs Auto 0.000 X10*3/uL (0.0-0.012); NRBC Pct Auto 0.0 /100WBC (0.0-0.2); Platelet Count 200 X10*3/uL (160-400); Red Blood Count 5.04 X10*6/uL (4.60-5.80); White Blood Count 10.2 X10*3/uL (4.8-10.8)
== END 2024-11-07 06:42 | disposition home or self-care (01) ==
LOC: HO.LABR 06:41
PROVIDERS: PCP Physician Assistant; Visit Provider Psychiatry & Neurology Psychiatry
DX: Z79.899 Other long term (current) drug therapy (principal)
CPT/HCPCS: 36415; 85025

== ENCOUNTER 2024-11-13 14:47 | Outpatient (AMB) | payer MEDICARE, MEDICAID, SELFPAY ==
--- OUTSIDE RECORDS SUMMARY | 2024-05-23 07:40 | XMS_ITS ---
Author Organization [facility] Address [address] [place] [address] Care Team Providers Care Banquet Server Name Role Phone Yael (RETIRED) Trevor ALONZO Primary Care Provide r Naveen Escobar Jr [phone] REASON FOR VISIT screening Encounters Encounter Location Date Provider Diagnosis [facility] Outpatient [address] [place] [phone] 05/23/2024 Naveen Yang Jr Colon cancer screening Z12.11 Assessments Encounter Date Diagnosis (ICD Code) Assessment Notes Treatment Notes Treatment Clinical Notes Section Notes 05/23/2024 Colon cancer screening (ICD-10 - Z12.11) Plan Of Treatment No Information Progress Notes * ANA FERMIN ADOB:1975 (49 yo M)Acc No.[id number]:05/23/2024 COLON WITH MAC Patient: FERMIN RODRIGUEZ Provider: Twan Yang MD :1975 A ge:48 Y S ex:Male Date:05/23/2024 Address:[address] [place], [place] [phone] Pcp:Trevor Conley (RETIRED )MD Subjective: * Chief [...] 05/23/2024 Generated for Luz burris/Danny/Nadine on: 0 11/13/2024 02:54 PM EDT
--- OUTSIDE RECORDS SUMMARY | 2024-11-13 14:55 | XMS_ITS | Clinical Summary ---
Author Organization [facility] [employer] Address [address] [facility] [address] [place] [address] Care Team Providers Care Gasoline Pump Mechanic Name Role Phone Unavailable Primary Care [...] Most Recently Relevant to Health Maintenance Insurance [facility] MEDICAID STAND ADULT
--- NOTE | 2024-11-13 15:28 | A.OFFVIS_ITS ---
Intake Intake Visit Reasons: 60 min Labor/Excavator Required: No Accompanied by: Mother Allergies Penicillins (PENICILLINS) Allergy (Unknown, Verified 11/03/24 15:14) Unknown HPI Comprehensive Diabetes Asmnt Most Recent Diabetes Results: 2 Hemoglobin A1c 6.4 % 01/16/20 Microalb/Creat Ratio, (<30) 69.8 ug/mg cr H 03/17/24 Cholesterol, (<200) 132 mg/dL 08/06/24 HDL Cholesterol, (>40) 42 mg/dL 08/06/24 Triglycerides, (<150) 222 mg/dL H 08/06/24 Creatinine, (0.5-1.4) 1.12 mg/dL 09/23/24 BUN, (9-16) 15 mg/dL 09/23/24 Sodium, (135-145) 141 mmol/L 09/23/24 Potassium, (3.3-5.1) 4.0 mmol/L 09/23/24 Chloride, (96-108) 105 mmol/L 09/23/24 Carbon Dioxide, (22-29) 26 mmol/L 09/23/24 Calcium, (8.4-10.2) 10.0 mg/dL Δ 09/23/24 AST, (5-37) 24 U/L 08/05/24 ALT, (0-40) 42 U/L H 08/05/24 Total Protein, (6.5-8.0) 8.6 g/dL H 08/05/24 Albumin, (3.5-5.0) 5.0 g/dL 08/05/24 [facility] Medical History (Updated 10/15/24 @ 17:29 by NAZIA Nicholson) 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 Gout Hyperlipidemia Bipolar 1 disorder Diabetes insipidus High cholesterol Anxiety PTSD (post-traumatic stress disorder) Schizo affective schizophrenia Surgical History History of colonoscopy (~05/23/24) Hx of tooth extraction Hx of excision of mass Family History Mother Fibromyalgia Post traumatic stress disorder (PTSD) Anxiety Osteopenia High cholesterol Anemia Cerebellar ataxia Social History Household Members: Foster Family Household Members Other:: Jarvis and Amarilis foster Housing: Other Housing Other:: correction/Assisted living Do you presently have visiting nurse or other home services: Yes Unable to assess alcohol history related to: Unknown Alcohol intake: never Patient Tobacco Use Status: Never used Tobacco e-Cigarette/Vaping Use: Never Used Substance Use Type: Caffiene Advance Directives Date on File: 07/05/23 service: No Current occupational status: disabled Sexual orientation: Don't Know Cognitive needs: No Hearing needs: No Vision needs: No Assessment & Plan Assessment & Plan (1) Diabetes mellitus: Code(s): E11.9 - Type 2 diabetes mellitus without complications Plan: Diabetes self-management education and support participation record Assessment/scale: 1= needs instructed? 2= needs review? 3= comprehend keep point? 4= demonstrates understanding/ competent? NC= Not Covered Topics Learning Objective: Initial visit Initial or post srvc Initial or post srvc Initial or post srvc Initial or post srvc Initial or post srvc Post srvc Comments Pre Edu-assessment/plan Outcome or reassess O utcome or reassess Outcome or reassess Outcome or reassess Outcome or reassess Outcome or reassess Diabetes pathophysiology 1 2 Healthy eating 1 3 Being active 1 3 Taking medication 1 3 Monitoring glucose 1 3 Acute complication 1 3 Chronic complicated 1 3 Lifestyle and healthy coping 1 3 Diabetes distress in support 1 3 ?Diabetes pathophysiology: ?Defined diabetes med identify own type of diabetes; list 3 options for treating diabetes Healthy eating: ?Described effect of type, amount and ?timing of food on blood glucose; list 3 methods for planning meal Being active: ?State effect of exercise on blood glucose level Taking medication: ?State effect of diabetes medications on diabetes; name diabetes medications taking, action and side effects Monitoring glucose: ?Identify recommended blood glucose targets and personal target Acute complication: ?List symptoms and treatment of hyper and hypoglycemia, DKA, sick day guidelines and guidelines for severe weather or situations of crisis and diabetes supply manage Chronic complication: ?To find the relationship of blood glucose levels to long- term complications of diabetes in screening and preventative measures Lifestyle and healthy coping: ?Described lifestyle and healthy coping strategies to rule out diabetes self-management Diabetes to stress and support: ?Recognize Diabetes to stress and be able to identified support options Learning objectives: The patient was provided with verbal and written education on the following topics as outlined below. 49 year old male with a past medical history of schizoaffective disorder, PTSD, learning disability, diabetes presenting for follow up. Accompanied by mom and caregiver metformin BID Lantus 36 units Novolog tid with meal Learning objectives: The patient was provided with verbal and written education on the following topics as outlined below. Assess patient education level/literacy/barriers Patient questions/concerns, patient having 7% of time in hypoglycemia. Multiple hypoglycemic events overnight in in the a.m. when he wakes up Recommended to patient and his mother they reduce Lantus 36 units, to Lantus 22 units Patient will follow-up with cnc laser operator if he has continues to have hypoglycemia after meals will reduce NovoLog sliding scale The patient met all learning objectives and was able to verbalize understanding and provide teach back of education topics discussed . The patient was provided with the opportunity to ask questions and all questions were answered. Topics covered in today?s session included: Insulin/Injectables (If applicable) * Storage/care of insulin?? * Injection sites? * Site rotation? * Onset, peak, duration * Drawing up insulin? * Injecting insulin/other injectables? * Sharps disposal Continuous blood glucose monitoring (if applicable) Hypoglycemia and Hyperglycemia * Signs and symptoms? * Causes?? * Treatment? * Preventing hypoglycemia? * When to seek medical attention Patient uses fruit juice and glucose tabs to treat hypoglycemia Target Goals: * Blood glucose targets and how you feel when your blood glucose is in and out of your target ranges. * Monitoring and knowing your A1C. * What can make blood glucose go up and down and preventing high and low blood glucose. * Review of blood sugar targets in expected goal range and outside of expected goal range. * Problem solving and preventing hyper/hypoglycemia. * Using blood sugar results in decision making process in managing diabetes. ?Patient was receptive to information provided and participated in the discussion. Asked?appropriate questions and demonstrated good understanding of the topics discussed.? ? Educational Materials: The patient was provided with the following written educational materials: Target Goal, how to treat hypoglycemia handout Smart Goal Assessment:? Patient and caregiver will identify foods that patient is currently eating that contain carbohydrates between now and next visit Patient's caregiver did not come to today's visit Pt met goal less than 25% New Smart Goal: Patient will use rule of 15s to treat hypoglycemia Patient Response to instructions: Comprehension of Instructions: fair Readiness to make changes:? Contemplation How confident they feel about making changes: Fair Portions of this note were created using voice recognition software, please excuse any words or phrases that may have been misinterpreted. (2) Insulin dependent type 2 diabetes mellitus: Code(s): E11.9 - Type 2 diabetes mellitus without complications; Z79.4 - terminal system operator (current) use of insulin Plan: Coding Level of Care Code Est Pt Level 1 (96972) Diagnoses Diabetes mellitus E11.9 Insulin dependent type 2 diabetes mellitus E11.9; Z79.4
== END 2024-11-13 15:35 | disposition home or self-care (01) ==
LOC: HO.ENCR 14:47
PROVIDERS: Visit Provider Registered Nurse Diabetes Educator
DX: E11.9 Type 2 diabetes mellitus without complications (principal); Z79.4 Long term (current) use of insulin

== ENCOUNTER → 2024-11-13 14:47 | Outpatient (BNVA) | payer MEDICARE, MEDICAID, SELFPAY | PROVIDERS: Visit Provider Registered Nurse Diabetes Educator | DX: E11.9 Type 2 diabetes mellitus without complications (principal) | CPT/HCPCS: 99211 ==

== ENCOUNTER 2024-12-09 07:24 | Outpatient (REF) | payer MEDICARE, MEDICAID, SELFPAY ==
--- OUTSIDE RECORDS SUMMARY | 2024-05-23 07:40 | XMS_ITS ---
Author Organization [facility] Address [address] [place] [address] Care Team Providers Care Engineer/Conductor Name Role Phone Yael (RETIRED) Trevor ALONZO Primary Care Provide r Naveen Escobar Jr REASON FOR VISIT screening Encounters Encounter Location Date Provider Diagnosis [facility] Outpatient [address] [place] [phone] 05/23/2024 Naveen Yang Jr Colon cancer screening Z12.11 Assessments Encounter Date Diagnosis (ICD Code) Assessment Notes Treatment Notes Treatment Clinical Notes Section Notes 05/23/2024 Colon cancer screening (ICD-10 - Z12.11) Plan Of Treatment No Information Progress Notes * ANA FERMIN ADOB:1975 (49 yo M)Acc No.[id number]:05/23/2024 COLON WITH MAC Patient: FERMIN RODRIGUEZ Provider: Twan Yang MD :1975 A ge:48 Y S ex:Male Date:05/23/2024 Address:[address] [place], [place] [phone] Pcp:Trevor Conley (RETIRED )MD Subjective: * Chief [...] 05/23/2024 Generated for Luz burris/Danny/Nadine on: 0 12/09/2024 07:28 AM EDT
--- OUTSIDE RECORDS SUMMARY | 2024-12-09 07:28 | XMS_ITS | Clinical Summary ---
Author Organization [email or web address] Address [address] [facility] [address] [place] [address] Care Team Providers Care Program Control Analyst Name Role Phone Unavailable Primary Care Provider Unavailabl e Allergies No known active allergies Medications clindamycin (Cleocin) 150 MG capsule 2 caps one hour prior to dental procedure 4 capsule 4 Active Social History Tobacco Use Types Packs/Day [...] Most Recently Relevant to Health Maintenance Insurance [facility] MEDICAID STAND ADULT
--- OUTSIDE RECORDS SUMMARY | 2024-12-09 07:28 | XMS_ITS | Patient Health Record ---
Author Organization [facility] Address [address] [place] [address] Care Team Providers Care Remote Broadcast Engineer Name Role Phone Rjei Keith Primary Care Provider Marcus Tracey [phone] Allergies Allergen (clinical drug ingredient) Drug/Non Drug Allergy documented on EMR Reaction Allergy Type Onset Date Status amoxicillin Amoxicillin rash oral itchy Drug Allergy Active Penicillin rash oral.,itchy Drug Allergy Active Results Component Value Reference Range Notes HEMOGLOBIN A1C (GLYCOHEMOGLO BIN) Reviewed date:05/13/2024 03:34:12 PM Interpretation: Performing Lab: Notes/Report: HEMOGLOBIN A1C % (HH) 6.4 HEMOGLOBIN A1C (GLYCOHEMOGLO BIN) Reviewed date:11/25/2024 04:43:56 PM Interpretation: Performing Lab: Notes/Report: HEMOGLOBIN A1C % (HH) 6.4 Reason For Referral No Information Medications Medication SIG (Take, Route, Frequency, Duration) Notes Start Date End Date Status Eliquis Active Ammonium Lactate 12 % 1 application Exte rnally Twice a day; Duration: 30 days Active Fiber Active clonazePAM 0.5 MG 1 tablet at bedtime Orally Twice a day Active Topiramate 3 tab Active Cogentin 1mg 1tab Twice a day Active Vitamin D 25 MCG (1000 UT) Orally Once a day Active Ascorbic Acid 500 MG 1 tablet Orally Onc e a day Active Sertraline HCl 100 MG 1.5 tablet Orally Once a day Active Benztropine Mesylate 1 MG Orally Twice a day Active Simvastatin 80 MG 1 tablet in the even ing Orally Once a day; Duration: 30 day(s) Active metFORMIN HCl 500 MG 1 tablet with a carlee l Orally Once a day; Duration: 30 days Active Allopurinol 100 MG 1 tablet Orally Once a day Active Multi Vitamin Once a day Activ e glipiZIDE XL 2.5 MG 1 tablet with breakf ast Orally Once a day; Duration: 30 day(s) Active Warfarin Sodium 2.5 MG 1 tablet Orally O nce a day; Duration: 30 day(s) Not-Rodrigo ing Extra Depth Orthopedic Shoes (1 Pair) with Customized Heat Molded Multidensity Innersoles (3 Pair) as directed Dx: NIDDM (E11.9), Hammertoe Foot Deformity (M20.41,M20.42), Preulcerative Skin Lesion(s) (L85.1) Active Haldol 5mg 1 tab once a day Ac tive Flonase Active Jardiance 25 MG 1 tablet Orally Once a day; Duration: 30 day(s) Not-Rodrigo ing Immunizations Vaccine Route Administration Date Status Comme nts Influenza Unknown 02/02/2022 Administered Influenza Unknown 01/22/2024 Administered Social History Tobacco Use: Social History [...] Problem Acquired hammer toe of right foot (15583537081931 05) Other hammer toe(s) (acquired), right foot (M20.41) Active confirmed Response to treatment,I mprovement Problem Acquired hammer toe of left foot (93262701456287 03) Other hammer toe(s) (acquired), left foot (M20.42) Active confirmed Response to treatment,I mprovement Problem Type II diabetes mellitus without complication (862881916) Type 2 diabetes mellitus without complication (E11.9) Active confirmed Vital Signs Blood pressure diastolic 65 mm Hg 11/25/2024 Height 5ft 6in in 11/25/2024 Blood pressure systolic 120 mm Hg 11/25/2024 Weight 166 lbs 11/25/2024 BMI 26.79 kg/m2 11/25/2024 Procedures Procedure Date Ordered Date Performed Result Body Sit e 45374-FETJQAX NAIL, 6 OR MORE 05/13/2024 N/A 84377-TNOHEDA NAIL, 6 OR MORE 08/19/2024 N/A 85170-DJLCXIY NAIL, 6 OR MORE 11/25/2024 N/A Encounters Encounter Location Date Provider Diagnosis [address] [address] 05/13/2024 Marcus Kyung Pain in right toe(s) M79.674 ; Tinea unguium B35.1 ; Pain in left toe(s) M79.675 ; Type 2 diabetes mellitus without complication E11.9 ; Other hammer toe(s) (acquired), right foot M20.41 and Other hammer toe(s) (acquired), left foot M20.[address] [address] 08/19/2024 Marcus Kyung Pain in right toe(s) M79.674 ; Tinea unguium B35.1 ; Pain in left toe(s) M79.675 and Type 2 diabetes mellitus without complication E11.[address] [address] 11/25/2024 Marcus Kyung Pain in right toe(s) M79.674 ; Other hammer toe(s) (acquired), right foot M20.41 ; Tinea unguium B35.1 ; Pain in left toe(s) M79.675 ; Type 2 diabetes mellitus without complication E11.9 and Other hammer toe(s) (acquired), left foot M20.[address] [address] 12/25/2023 Marcus Kyung [address] [address] 02/18/2024 Marcus Kyung Assessments Encounter Date Diagnosis (ICD Code) Assessment Notes Treatment Notes Treatment Clinical Notes Section Notes 05/13/2024 Pain in right toe(s) (ICD-10 - M79.674) 08/19/2024 Pain in right toe(s) (ICD-10 - M79.674) 11/25/2024 Other hammer toe(s) (acquired), right foot (ICD-10 - M20.41) Patient Educated with: DIABETIC FOOT CARE INSTRUCTIONS.p df (DIABETIC FOOT CARE INSTRUCTIONS.p df) 11/25/2024 Pain in right toe(s) (ICD-10 - M79.674) 11/25/2024 Tinea unguium (ICD-10 - B35.1) 08/19/2024 Tinea unguium (ICD-10 - B35.1) 08/19/2024 Pain in left toe(s) (ICD-10 - M79.675) 05/13/2024 Tinea unguium (ICD-10 - B35.1) 05/13/2024 Pain in left toe(s) (ICD-10 - M79.675) 05/13/2024 Type 2 diabetes mellitus without complication (ICD-10 - E11.9) 11/25/2024 Pain in left toe(s) (ICD-10 - M79.675) 08/19/2024 Type 2 diabetes mellitus without complication (ICD-10 - E11.9) 11/25/2024 Type 2 diabetes mellitus without complication (ICD-10 - E11.9) 05/13/2024 Other hammer toe(s) (acquired), right foot (ICD-10 - M20.41) Response to treatment,Impro vement 05/13/2024 Other hammer toe(s) (acquired), left foot (ICD-10 - M20.42) Response to treatment,Impro vement 11/25/2024 Other hammer toe(s) (acquired), left foot (ICD-10 - M20.42) Plan Of Treatment Pending Test Test Name Order Date 78118-PEECSSY NAIL, 6 OR MORE 02/03/2020 69720-HPXUKQS NAIL, 6 OR MORE 05/07/2020 32279-HNLDPQG NAIL, 6 OR MORE 08/10/2020 35356-VDFXMZF NAIL, 6 OR MORE 11/26/2020 29198-WZUSRRV NAIL, 6 OR MORE 03/04/2021 36215-KGJNFRV NAIL, 6 OR MORE 06/07/2021 90557-UXKYPLF NAIL, 6 OR MORE 09/06/2021 99262-BKAHVGM NAIL, 6 OR MORE 01/20/2022 72571-KMKHCPP NAIL, 6 OR MORE 06/13/2022 02607-DIGNBOE NAIL, 6 OR MORE 09/19/2022 46098-VBFISAC NAIL, 6 OR MORE 12/26/2022 31606-RJGIWGK NAIL, 6 OR MORE 03/27/2023 55311-EPMGZGF NAIL, 6 OR MORE 06/26/2023 38784-SDXRCFS NAIL, 6 OR MORE 09/25/2023 23370-TSPVXKT NAIL, 6 OR MORE 05/13/2024 26839-ZAAOASY NAIL, 6 OR MORE 08/19/2024 32062-JFNHVER NAIL, 6 OR MORE 11/25/2024 Next Appt Details Provider Name:Marcus Tracey , 03/17/2025 04:00:00 PM, [address] [facility], [place], [address], Insurance Providers Payer Name Payer Address Payer Phone Subscriber Number Group Number Insured Name Patient Relationship to Insured Coverage Start Date Coverage End Date Medicare National Govt Svcs Inc [address] [place] [address] [id number] Gautam Simmons Self - patient is the insured Medical (General) History Medical History History ICD Code Anxiety Depression Gout Psychiatric disorder Chicken pox type II diabetes ptsd CAD (Cholesterol) Mild Retardation Surgical History Surgery Date(Month/Year) Hospitalization History Reason Date(Month/Year) [facility] ER sodium too high 12/23
[2024-12-09 10:52] LABS: MANUAL DIFF FLAG NO
[2024-12-09 11:04] LABS: Hematocrit 42.3 % (42.0-52.0); Hemoglobin 13.7 g/dl (14.0-18.0); Imm Gran Abs Auto 0.05 X10*3/uL (0.00-0.03); Imm Gran Pct Auto 0.5 % (0.0-0.4); Lymphocytes Absolute Auto 3.1 X10*3/uL (1.2-4.9); Mean Corpuscular HGB Conc 32.4 g/dl (31.0-36.0); Mean Corpuscular Hemoglobin 28.5 pg (27.0-33.0); Mean Corpuscular Volume 87.9 fL (80.0-98.0); NRBC Abs Auto 0.000 X10*3/uL (0.0-0.012); NRBC Pct Auto 0.0 /100WBC (0.0-0.2); Platelet Count 249 X10*3/uL (160-400); Red Blood Count 4.81 X10*6/uL (4.60-5.80); White Blood Count 9.8 X10*3/uL (4.8-10.8)
== END 2024-12-09 07:25 | disposition home or self-care (01) ==
LOC: HO.10HDL 07:24
PROVIDERS: Visit Provider Psychiatry & Neurology Psychiatry
DX: Z79.899 Other long term (current) drug therapy (principal)
CPT/HCPCS: 36415; 85025

== ENCOUNTER 2024-12-28 21:48 | Emergency (ER) | payer MEDICARE, MEDICAID, SELFPAY ==
--- OUTSIDE RECORDS SUMMARY | 2023-12-25 12:00 | XMS_ITS ---
Author Organization [facility] Address [address] [place] [address] Care Team Providers Care Engine Maintenance Mechanic Name Role Phone Sagar, Kartik Primary Care Provider Marcus Tracey Unavailable [phone] Medications Medication SIG (Take, Route, Frequency, Duration) [...] Active Encounters Encounter Location Date Provider Diagnosis [facility] [place] [address] [place] [address] 12/25/2023 Marcus Tracey Plan Of Treatment Next Appt Details Provider Name:Marcus Tracey , 03/17/2025 04:00:00 PM, [address] [place], [address], Progress Notes * SIMMONSMoisesKarenOB:1975 ( 49 yo M)Acc No.[id number]:12/25/2023 Progress Note Patient: Gautam RODRIGUEZ Provider: Nneka Tracey DPM :1975 A ge:48 Y S ex:Male Date:12/25/2023 Address:[facility] , [address] [place], [place] [phone] Pcp:Reji Keith Subjective: * Chief Complaints: * [...] Date: 12/25/2023 Generated for Luz burris/Danny/Nadine on: 12/28/2024 10:42 PM EDT
--- OUTSIDE RECORDS SUMMARY | 2024-02-19 11:15 | XMS_ITS ---
Author Organization [facility] Address [address] [place] [address] Care Team Providers Care Sales Team Recruiter Name Role Phone Reji Keith Primary Care Provider Marcus Tracey [phone] Encounters Encounter Location Date Provider Diagnosis [address] [address] 02/19/2024 Marcus Tracey Plan Of Treatment Next Appt Details Provider Name:Marcus Tracey , 03/17/2025 04:00:00 PM, [address] [place] [address], [address], Progress Notes * Moises SIMMONSinDOB:1975 ( 49 yo M)Acc No.[id number]:02/19/2024 Progress Note Patient: Gautam RODRIGUEZ Provider: Nneka Tracey DPM :1975 A ge:48 Y S ex:Male Date:02/19/2024 Address:[facility] , [address] [place], [place] [phone] Pcp:Reji Keith Subjective: * Chief Complaints: * [...] 1 Generated for Luz Sterling on: 0 12/28/2024 10:42 PM EDT
--- OUTSIDE RECORDS SUMMARY | 2024-05-23 07:40 | XMS_ITS ---
Author Organization [facility] Address [address] [place] [phone] Care Team Providers Care Mannequin Mounter Name Role Phone Yael (RETIRED) Trevor ALONZO Primary Care Provide r Naveen Escobar Jr [phone] REASON FOR VISIT screening Encounters Encounter Location Date Provider Diagnosis [facility] Outpatient [address] [place] [phone] 05/23/2024 Naveen Yang Jr Colon cancer screening Z12.11 Assessments Encounter Date Diagnosis (ICD Code) Assessment Notes Treatment Notes Treatment Clinical Notes Section Notes 05/23/2024 Colon cancer screening (ICD-10 - Z12.11) Plan Of Treatment No Information Progress Notes * ANA FERMIN ADOB:1975 (49 yo M)Acc No.[id number]:05/23/2024 COLON WITH MAC Patient: FERMIN RODRIGUEZ Provider: Twan Yang MD :1975 A ge:48 Y S ex:Male Date:05/23/2024 Address:[address] [place], [place] [phone] Pcp:Trevor Conley (RETIRED )MD Subjective: * Chief [...] 05/23/2024 Generated for Luz burris/Danny/Nadine on: 0 12/28/2024 10:42 PM EDT
[2024-12-28 21:52] VITALS: BP 162/94; BP 169/95; PULSE 101; PULSE 106; RESP 18; TEMP -7.7; TEMP 18; O2SAT 95; O2SAT 97; BMI 29.2
[2024-12-28 22:41] LABS: MANUAL DIFF FLAG NO
[2024-12-28 22:42] LABS: Hematocrit 37.0 % (42.0-52.0); Hemoglobin 12.6 g/dl (14.0-18.0); Imm Gran Abs Auto 0.12 X10*3/uL (0.00-0.03); Imm Gran Pct Auto 1.0 % (0.0-0.4); Lymphocytes Absolute Auto 1.5 X10*3/uL (1.2-4.9); Mean Corpuscular HGB Conc 34.1 g/dl (31.0-36.0); Mean Corpuscular Hemoglobin 28.5 pg (27.0-33.0); Mean Corpuscular Volume 83.7 fL (80.0-98.0); NRBC Abs Auto 0.000 X10*3/uL (0.0-0.012); NRBC Pct Auto 0.0 /100WBC (0.0-0.2); Platelet Count 205 X10*3/uL (160-400); Red Blood Count 4.42 X10*6/uL (4.60-5.80); White Blood Count 12.1 X10*3/uL (4.8-10.8)
[2024-12-28 22:43] LABS: Appearance Urine Clear; Glucose Urine UA Negative (Negative); PH 6.5 (5.0-9.0); Specific Gravity - Urine <= 1.005 (1.005-1.025)
--- OUTSIDE RECORDS SUMMARY | 2024-12-28 22:43 | XMS_ITS | Encounter Summary ---
Author Organization [employer] [facility] Address [address] [facility] 7t [place] [address] Care Team Providers Care Capsule Machine Operator Name Role Phone Unavailable Primary [...]
--- OUTSIDE RECORDS SUMMARY | 2024-12-28 22:43 | XMS_ITS | Patient Health Record ---
Author Organization [facility] Address [address] [place] [address] Care Team Providers Care Manager Unit Name Role Phone Reji Keith Primary Care Provider Marcus Tracey [phone] Allergies Allergen (clinical drug ingredient) Drug/Non Drug [...] Problem Acquired hammer toe of right foot (75843354910979 05) Other hammer toe(s) (acquired), right foot (M20.41) Active confirmed Response to treatment,I mprovement Problem Acquired hammer toe of left foot (16549716052919 03) Other hammer toe(s) (acquired), left foot (M20.42) Active confirmed Response to treatment,I mprovement Problem Type II diabetes mellitus without complication (395352724) Type 2 diabetes mellitus without complication (E11.9) Active confirmed Vital Signs Blood pressure diastolic 65 mm Hg 11/25/2024 Height 5ft 6in in 11/25/2024 Blood pressure systolic 120 mm Hg 11/25/2024 Weight 166 lbs 11/25/2024 BMI 26.79 kg/m2 11/25/2024 Procedures Procedure Date Ordered Date Performed Result Body Sit e 64074-MDTRFRW NAIL, 6 OR MORE 05/13/2024 N/A 62976-CXRDQCA NAIL, 6 OR MORE 08/19/2024 N/A 40847-ODHYPVN NAIL, 6 OR MORE 11/25/2024 N/A Encounters Encounter Location Date Provider Diagnosis [address] [address] 05/13/2024 Marcus Kyung Pain in right toe(s) M79.674 ; Tinea unguium B35.1 ; Pain in left toe(s) M79.675 ; Type 2 diabetes mellitus without complication E11.9 ; Other hammer toe(s) (acquired), right foot M20.41 and Other hammer toe(s) (acquired), left foot M20.[address] [address] 08/19/2024 Marcus Kyung Pain in right toe(s) M79.674 ; Tinea unguium B35.1 ; Pain in left toe(s) M79.675 and Type 2 diabetes mellitus without complication E11.[address] [address] 11/25/2024 Marcus Kyung Pain in right toe(s) M79.674 ; Other hammer toe(s) (acquired), right foot M20.41 ; Tinea unguium B35.1 ; Pain in left toe(s) M79.675 ; Type 2 diabetes mellitus without complication E11.9 and Other hammer toe(s) (acquired), left foot M20.[address] [address] 02/18/2024 Marcus Kyung Assessments Encounter Date Diagnosis [...] Treatment Pending Test Test Name Order Date 28332-FPROVHD NAIL, 6 OR MORE 02/03/2020 76546-XKAOEDU NAIL, 6 OR MORE 05/07/2020 85459-CLMZJVN NAIL, 6 OR MORE 08/10/2020 22503-ZQGUVEZ NAIL, 6 OR MORE 11/26/2020 87867-CACXPWW NAIL, 6 OR MORE 03/04/2021 34513-SLXAOIS NAIL, 6 OR MORE 06/07/2021 00308-UWOSCCY NAIL, 6 OR MORE 09/06/2021 58106-WZJXXJU NAIL, 6 OR MORE 01/20/2022 01099-KJCEQBH NAIL, 6 OR MORE 06/13/2022 79933-NUICYDL NAIL, 6 OR MORE 09/19/2022 61776-HSOOSHF NAIL, 6 OR MORE 12/26/2022 58387-ONQZTKG NAIL, 6 OR MORE 03/27/2023 14397-RDLOPBM NAIL, 6 OR MORE 06/26/2023 89462-OBJZDMM NAIL, 6 OR MORE 09/25/2023 16616-QAFSAAS NAIL, 6 OR MORE 05/13/2024 24050-GZIDXVY NAIL, 6 OR MORE 08/19/2024 06630-DTWWEIY NAIL, 6 OR MORE 11/25/2024 Next Appt Details Provider Name:Marcus Tracey , 03/17/2025 04:00:00 PM, [address] [place], [address], Insurance Providers Payer Name Payer Address Payer Phone Subscriber Number Group Number Insured Name Patient Relationship to Insured Coverage Start Date Coverage End Date Medicare National Govt Svcs Inc [address] [place] [address] [id number] Gautam Simmons Self - patient is the insured Medical (General) History Medical History History ICD Code Anxiety Depression Gout Psychiatric disorder Chicken pox type II diabetes ptsd CAD (Cholesterol) Mild Retardation Surgical History Surgery Date(Month/Year) Hospitalization History Reason Date(Month/Year) [facility] ER sodium too high 12/23
--- OUTSIDE RECORDS SUMMARY | 2024-12-28 22:43 | XMS_ITS | Clinical Summary ---
Author Organization [employer] Address [address] [facility] 7t [place] [address] Care Team Providers Care Machine Stacker Name Role Phone Unavailable Primary Care Provider [...] 12/19/2023 06/19/2023, 03/2022, 04/14/2019, Additional history exists Dental X-Ray: [facility] 06/20/2024 06/19/19 24, 09/01/2021, 04/14/2019, Additional history exists COVID-19 Vaccine ( season) 2024 05/02/2021, 08/19/2020, 07/29/2020 Influenza Vaccine (#1) 2024 Dental X-Ray: Full [...]
--- OUTSIDE RECORDS SUMMARY | 2024-12-28 22:43 | XMS_ITS | Patient Health Record ---
Author Organization [facility] Address [address] [place] [address] Care Team Providers Care Application Integrator Name Role Phone Yael (RETIRED) Trevor ALONZO Primary Care Provide Naveen Dixon Jr Unavailable Allergies Allergen (clinical drug ingredient) Drug/Non Drug Allergy documented on EMR Reaction Allergy Type Onset Date Status Penicillin Unknown Drug Allergy Active Results Component Value Reference Range Notes Glucose, Whole Blood Reviewed date:05/23/2024 09:24:07 PM Interpretation: Performing Lab:[facility], [address] [place] [id number] Notes/Report: Glucose, Whole Blood 233 60-115 mg/dL METER # : [id number] Reason For Referral No Information Medications Medication [...] Problem Status W/U Status Risk Notes Problem 785626338 Colon cancer screening (Z12.11) Active confirmed Problem 539471656 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) Active confirmed Problem 249541794 Long-term curren t use of high risk medication other than anticoagulant (Z79.899) Active confirmed Vital Signs Blood pressure diastolic 00 mm Hg 05/01/2024 Height 5 ft 7 in in 05/01/2024 Blood pressure systolic 00 mm Hg 05/01/2024 Weight 171 lbs 05/01/2024 BMI 26.78 kg/m2 05/01/2024 Encounters Encounter Location Date Provider Diagnosis [facility] [address], [place] [id number] 05/23/2024 Naveen Yang Jr Colon cancer screening Z12.11 [facility] [address] [facility] [address] [place] [address] 05/01/2024 Naveen Yang Jr Colon cancer screening Z12.11 ; Long-term current use of high risk medication other than anticoagulant Z79.899 and termite inspector (current) use of anticoagulants Z79.01 [facility] [address] [place] [address] 05/14/2024 Naveen Yang Jr [facility] [address] [place] [address] 05/19/2024 Naveen Yang Jr Assessments Encounter Date [...] the night before the prep. 05/01/2024 termite inspector (current) use of anticoagulants (ICD-10 - Z79.01) [...] Date MEDICARE OF [place] [address] [place] [address] [id number] FERMIN PEREZ Self - patient is the insured MEDICAID OF [facility] [address] [place] [address] [phone] [id number] FERMIN PEREZ Self - patient is the insured Medical (General) History Medical History History ICD Code Diabetes mellitus type 2 Pulmonary embolus Schizoaffective disorder bipolar disorder Intellectual disability PTSD Hyperlipidemia Surgical History Surgery Date(Month/Year) Excision of right axillary lesion
[2024-12-28 22:55] LABS: Anion Gap 17 (12-20); Blood Urea Nitrogen 17 mg/dL (9-16); Calcium 9.4 mg/dL (8.4-10.2); Carbon Dioxide 23 mmol/L (22-29); Chloride 104 mmol/L (96-108); Creatinine Clr Calc Pharmacy 75.8; Estimated Glomerular Filt Rate > 60; Potassium 4.0 mmol/L (3.3-5.1); Sodium 140 mmol/L (135-145)
--- NOTE | 2024-12-28 23:21 | ED.PSYCH ---
HPI - Psych General Chief Complaint: Psychiatric Symptoms Stated Complaint: hearing voices Time Seen by Provider: 12/28/24 21:58 Source: patient and other (Guardian) Mode of arrival: ambulatory Limitations: no limitations History of Present Illness ED Provider: Dr. Patricia Hernandez HPI Narrative: 49-year-old male with a history of schizoaffective disorder, intellectual disability, diabetes presenting with auditory hallucinations that have been ongoing for the last several hours. His it specialist says that he requested 911 because of these voices. Denies suicidal or homicidal ideations. No command hallucinations. He is unable to fully describe his symptoms to me. He is very vague and has confusion at baseline. His caretakers as he has been taking all of his medications as prescribed and does not have access to drugs or alcohol. He lives in a foster home. His meds are administered to him daily. Describes feeling sweaty and having a dry cough but denies other symptoms including headache, vision changes, sore throat, chest pain, difficulty breathing, abdominal pain, nausea, vomiting, diarrhea, known sick contacts. Related Data Home Medications ?Medication ?Instructions ?Recorded ?Confirmed ascorbic acid (vitamin C) 500 mg 1 tab PO DAILY 03/02/20 12/28/24 tablet (Vitamin C) cholecalciferol (vitamin D3) 25 1 cap PO DAILY 03/02/20 12/28/24 mcg (1,000 unit) capsule (Vitamin D3) fluticasone propionate 50 1 spray intranasal BID 03/02/20 12/28/24 mcg/actuation nasal spray,suspension haloperidol 5 mg tablet 5 mg PO BEDTIME 03/02/20 12/28/24 sertraline 100 mg tablet 1.5 tab PO DAILY 03/02/20 12/28/24 simvastatin 80 mg tablet 1 tab PO DAILY 03/02/20 12/28/24 clonazepam 1 mg tablet 0.5 mg PO BID 07/02/23 10/15/24 benztropine 1 mg tablet 1 mg PO BID 08/04/24 12/28/24 insulin glargine 100 unit/mL (3 36 unit subcut QPM 10/15/24 10/15/24 mL) subcutaneous pen (Basaglar KwikPen U-100 Insulin) allopurinol 100 mg tablet 200 mg PO DAILY 12/28/24 12/28/24 clonazepam 0.5 mg tablet 0.5 mg PO BID 12/28/24 12/28/24 clozapine 50 mg tablet 50 mg PO DAILY 12/28/24 12/28/24 insulin glargine 100 unit/mL (3 20 unit subcut BEDTIME 12/28/24 12/28/24 mL) subcutaneous pen (Lantus Solostar U-100 Insulin) Previous Rx's ?Medication ?Instructions ?Recorded pen needle, diabetic 32 gauge x #200 ea 07/08/24 blood sugar diagnostic (FreeStyle #100 ea 07/15/24 Lite Strips) lancets 28 gauge (FreeStyle #100 ea 07/16/24 Lancets) multivitamin 1 tab PO DAILY #90 tabs 09/25/24 allopurinol 100 mg tablet 100 mg PO DAILY #90 tabs 09/26/24 clozapine 100 mg tablet 300 mg (3 x 100 mg) PO BEDTIME #90 09/26/24 tabs insulin aspart U-100 100 unit/mL 1 sliding scale dose subcut 10/01/24 (3 mL) subcutaneous pen (Novolog USEASDIRECTD 30 days #18 mL FlexPen U-100 Insulin aspart) apixaban 2.5 mg tablet (Eliquis) 2.5 mg PO BID #180 tabs 10/15/24 pen needle, diabetic 32 gauge x #100 ea 12/08/24 (Emmy 2nd Gen Pen Needle) metformin 1,000 mg tablet 1,000 mg PO BID #180 tabs 12/15/24 Allergies Allergy/AdvReac Type Severity Reaction Status Date / Time Penicillins (PENICILLINS) Allergy Unknown Unknown Verified 12/28/24 21:54 Review of Systems Review of Systems: As per HPI, full review of systems performed and negative but for the above mentioned pertinent positives and negatives. [facility] Past Medical History Medical History 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 Gout Hyperlipidemia Bipolar 1 disorder Diabetes insipidus High cholesterol Anxiety PTSD (post-traumatic stress disorder) Schizo affective schizophrenia Surgical History History of colonoscopy (~05/23/24) Hx of tooth extraction Hx of excision of mass Family History Family History Mother Fibromyalgia Post traumatic stress disorder (PTSD) Anxiety Osteopenia High cholesterol Anemia Cerebellar ataxia Social History Social History Household Members: Foster Family Household Members Other:: Jarvis and Amarilis foster Housing: Other Housing Other:: long-term/Assisted living Do you presently have visiting nurse or other home services: Yes Unable to assess alcohol history related to: Unknown Alcohol intake: never Patient Tobacco Use Status: Never used Tobacco Smoked in Last 30 Days: No e-Cigarette/Vaping Use: Never Used Use of substances other than those prescribed or required for medical reasons: No Substance Use Type: Caffiene Advance Directives: Yes Advance Directives on File: Yes Advance Directives Date on File: 07/05/23 service: No Current occupational status: disabled Sexual orientation: Don't Know Cognitive needs: No Hearing needs: No Vision needs: No Physical Exam Exam: Exam: GENERAL: Anxious, slow to respond. SKIN: Normal skin color for ethnicity, warm, dry, intact, no rashes noted. HEENT: Normocephalic, atraumatic, no stridor, posterior oropharynx nonerythematous, dentition intact, EOMI. NECK: Soft, supple, full ROM, midline structures nontender, no step-offs, no deformities, no lymphadenopathy. CHEST: Heart regular tachycardia, no murmurs, symmetric chest rise and fall, no crepitus. PULMONARY: Clear to auscultation bilaterally, no labored breathing, no wheezes/rhales/ rhonchi. ABDOMINAL: Soft, nondistended, nontender, positive bowel sounds in all quadrants. : Deferred. MUSCULOSKELETAL: Normal tone, full range of motion, no deformities, no peripheral edema. NEURO: Alert and oriented x3, CN II through XII intact, equal strength and sensation bilateral upper and lower extremities, no focal neurologic deficits. PSYCHIATRIC: Anxious affect, auditory hallucinations, fluid speech, good eye contact and appropriate demeanor. Vital Signs: Vital Signs: Last Vital Signs Temp 98.1 F 12/29/24 00:12 Pulse 89 12/29/24 00:12 Resp 18 12/28/24 21:52 BP 127/78 12/29/24 00:12 Pulse Ox 94 12/29/24 00:12 O2 Del Method Room Air 12/29/24 00:12 BMI result Body Mass Index 29.2 Course Course Course Narrative: 11:54 PM 12/28/2024 (Dr. Patricia Hernandez, D.O.) Time: 23:54 Date: 12/28/24 Provider: Patricia Hernandez, DO Patient in physician observation for psychiatric evaluation.? No acute events reported overnight. No current complaints. VS stable.? Patient is pending CARE team evaluation. Will continue to monitor. Reevaluation(s) Reevaluation #1: 8:28 AM 12/29/2024 (Dr. Tirso Lima): Cleared for discharge by care team Time: 08:28 Medical Decision Making Medical Decision Making [facility] Narrative: Patient presents with psychologic complaints. Differential diagnosis includes suicidal ideations, homicidal ideations, depression, anxiety, mood disorder, decompensated mental illnesses such as schizophrenia or bipolar disorder, medication noncompliance, among many others. Medical clearance protocol was initiated. Also going to check him for COVID and flu given his sweatiness and dry cough. We are having a slight uptick in cases in the area lately. 00:27 AM 12/29/2024 (Dr. Patricia Hernandez, D.O.) patient is currently voluntary for behavioral health re-evaluation in the morning. He is anxious that he might go back to the skilled nursing and have recurrent auditory hallucinations. To avoid any further worsening of his hallucinations, we will watch him overnight and have him re-evaluated in the morning. His mother who is at bedside agrees with this plan. 6:29 AM 12/29/2024 (Dr. Patricia Hernandez, D.O.) awaiting care team re-evaluation. Signing out to oncoming provider pending re-evaluation and final disposition. Patient continues to endorse improved auditory hallucinations, denies suicidality. No thoughts of self-harm. Differential Diagnosis Differential Diagnoses: The differential diagnosis associated with the presentation includes (as above) Admission/Observation Consideration of admission/observation: Escalation of care including admission/observation considered Lab Data [facility] Lab Attestation statement: I reviewed the patient's lab results. 12/28/24 22:32 12/28/24 22:32 Labs: Lab Results 12/28/24 12/28/24 Range/Units 22:32 23:25 WBC 12.1 H (4.8-10.8) X10*3/uL RBC 4.42 L (4.60-5.80) X10*6/uL Hgb 12.6 L (14.0-18.0) g/dl Hct 37.0 L (42.0-52.0) % MCV 83.7 (80.0-98.0) fL MCH 28.5 (27.0-33.0) pg MCHC 34.1 (31.0-36.0) g/dl RDW 13.4 (11.0-16.0) % Plt Count 205 (160-400) X10*3/uL MPV 10.1 (9.4-12.4) fL Immature Gran % (Auto) 1.0 H (0.0-0.4) % Neut % (Auto) 77.7 H (45-73) % Lymph % (Auto) 12.3 L (20-40) % [place] % (Auto) 4.6 (2-11) % Eos % (Auto) 4.1 H (0-4) % Baso % (Auto) 0.3 (0-2) % Lymph # (Auto) 1.5 (1.2-4.9) X10*3/uL [place] # (Auto) 0.6 (0.1-1.2) X10*3/uL Eos # (Auto) 0.5 H (0.0-0.4) X10*3/uL Baso # (Auto) 0.0 (0.0-0.2) X10*3/uL Abs Immat Gran (auto) 0.12 H (0.00-0.03) X10*3/uL Absolute Neuts (auto) 9.4 H (2.0-8.3) x10*3/uL Absolute Nucleated RBC 0.000 (0.0-0.012) X10*3/uL Nucleated RBC % (auto) 0.0 (0.0-0.2) /100WBC Sodium 140 (135-145) mmol/L Potassium 4.0 (3.3-5.1) mmol/L Chloride 104 (96-108) mmol/L Carbon Dioxide 23 (22-29) mmol/L Anion Gap 17 (12-20) BUN 17 H (9-16) mg/dL Creatinine 1.13 (0.5-1.4) mg/dL Estim Creat Clear Calc 75.8 Estimated GFR > 60 Random Glucose 178 H (60-115) mg/dL Calcium 9.4 (8.4-10.2) mg/dL Urine Color Yellow Urine Appearance Clear Urine pH 6.5 (5.0-9.0) Ur Specific Miller <= 1.005 (1.005-1.025) Urine Protein Negative (Neg-Trace) mg/dL Urine Glucose (UA) Negative (Negative) mg/dL Urine Ketones Negative (Negative) mg/dL Urine Blood Negative (Negative) Urine Nitrite Negative (Negative) Ur Leukocyte Esterase Negative (Negative) COVID-19 (ROMÁN) Negative (Negative) COVID-19 Clin Com See Note Influenza Type A (EVELINA) Negative (Negative) Influenza Type B (EVELINA) Negative (Negative) Influenza A & B Note See Note Independent Historian Clinical information obtained from an independent historian. History obtained from or confirmed by: Other (Caregiver) External Record Review External record reviewed: Inpatient record Chronic Conditions Patient?s care impacted by: Diabetes, Hypertension and Other (Schizoaffective disorder) Social Determinants Patient?s care significantly limited by Social Determinants of Health including: Problems related to primary support group and Other Social Determinant of Health Discharge Plan Discharge Clinical Impression: Continuous auditory hallucinations Patient Disposition: Home, Self-Care Instructions: Psychiatric Hallucinations (ED) Additional Instructions: Continue to take all your medications as prescribed. Return to the ER with any new or worsening symptoms including: Fevers greater than 100 degrees, worsening chest pain, difficulty breathing, abdominal pain, vomiting, thoughts of self-harm or suicidal thoughts, or any new symptom that concerns you. Call 911 with any medical emergency. You were seen in our Emergency Department today for treatment of a behavioral health issue. It is important after your visit that you follow up with either your behavioral health provider or a primary care doctor within 7 days.? If you have trouble finding a therapist you can reach out to [address] [phone] The National Suicide and Crisis Lifeline can be reached 7 days a week 24 hours a day.? Call 988 to speak with someone.? Return for any worsening symptoms or concerns such as thoughts of self harm or harm to others. Please call 911 if you feel your mental health is worsening.? Prescriptions: No Action (DME) FreeStyle Lite Strips Strip See Rx Instructions .Route Qty: 100 4RF Rx Instructions: As directed tests 3X day (DME) lancets [FreeStyle Lancets] 28 gauge misc See Rx Instructions .ROUTE .MEDSUPPLY Qty: 100 1RF Rx Instructions: 3 times a day prn sensor failure or to confirm glucose dispense as 33 guage if available multivitamin Tablet 1 tab PO DAILY Qty: 90 1RF allopurinol 100 mg tablet 100 mg PO DAILY Qty: 90 3RF clozapine 100 mg tablet 300 mg PO BEDTIME Qty: 90 3RF insulin aspart U-100 [Novolog FlexPen U-100 Insulin] 100 unit/mL (3 mL) insulin pen 1 sliding scale dose subcut USEASDIRECTD MDD 54 30 Days Qty: 18 3RF Rx Instructions: 4-18 units t.i.d. per scale (DME) pen needle, diabetic [Emmy 2nd Gen Pen Needle] 32 gauge x 5/32 needle See Rx Instructions .Route Qty: 100 3RF Rx Instructions: use 4 times a day metformin 1,000 mg tablet 1,000 mg PO BID Qty: 180 0RF haloperidol 5 mg Tablet 5 mg PO BEDTIME sertraline 100 mg tablet 1.5 tab PO DAILY simvastatin 80 mg tablet 1 tab PO DAILY ascorbic acid (vitamin C) [Vitamin C] 500 mg tablet 1 tab PO DAILY fluticasone propionate 50 mcg/actuation spray,suspension 1 spray intranasal BID cholecalciferol (vitamin D3) [Vitamin D3] 25 mcg (1,000 unit) capsule 1 cap PO DAILY benztropine 1 mg tablet 1 mg PO BID clonazepam 1 mg tablet 0.5 mg PO BID clonazepam 0.5 mg Tablet 0.5 mg PO BID Rx Instructions: and may take 1 additional dose PRN allopurinol 100 mg Tablet 200 mg PO DAILY clozapine 50 mg Tablet 50 mg PO DAILY insulin glargine [Lantus Solostar U-100 Insulin] 100 unit/mL (3 mL) Insulin Pen 20 unit SUBCUT BEDTIME (DME) pen needle, diabetic 32 gauge x 5/32 needle See Rx Instructions .ROUTE .MEDSUPPLY Qty: 200 6RF Rx Instructions: qid Eliquis 2.5 mg tablet 2.5 mg PO BID Qty: 180 1RF insulin glargine [Basaglar KwikPen U-100 Insulin] 100 unit/mL (3 mL) insulin pen 36 unit subcut QPM Interventions: [place]-Suicide Risk Severity Scale Last Done: 12/28/24 21:59 Print Language: Georgian
[2024-12-28 23:45] LABS: COVID-19 Test Negative (Negative); IDNOW Serial# 55D5AD1C; IDNOW Serial# 58CA691E; Influenza B2 Negative (Negative)
[2024-12-29 00:12] VITALS: BP 127/78; PULSE 89; TEMP 36.7; O2SAT 94
--- NOTE | 2024-12-29 00:24 | PC.NURSE ---
Pt ambulated with a steady gait to Pod with this RN. Pt calm and cooperative with care.
--- NOTE | 2024-12-29 00:30 | PC.NURSE ---
Pt arrives at Pod with nurse and mom, calm and cooperative. No apparent distress noted. Pt oriented to the pod and encouraged to ask for assistance if needed. Pt denies any pain at this time and states wanting to go to sleep. Pt hugged and kissed mom elizabeth and laid on the bed. Mom states pt received all of his meds for today and will return tomorrow. As per care team, pt experiencing auditory hallucinations and is to be monitored. Plan is for pt to be reevaluated in the morning with plans for possible discharged back to adult foster care if all goes well. Monitoring is ongoing.
--- NOTE | 2024-12-29 08:34 | MHC.CARE ---
Pt does not meet the criteria for a higher level of care and does not present as an imminent risk. Pt to discharge home. ED provider in agreement with disposition.
[2024-12-29 08:43] VITALS: BP 138/78; PULSE 86; RESP 16; TEMP 37.2; O2SAT 96
[2024-12-29 09:03] VITALS: BP 138/78; PULSE 86; RESP 16; TEMP 37.2; O2SAT 96
--- NOTE | 2024-12-29 09:04 | MHC.CARE ---
T/W attempted to contact Vickey Baldwin, Pt's adult foster care and was unable to reach him. The line was busy and T/W was unable to communicate that Pt would return home this morning.
== END 2024-12-29 09:10 | disposition home or self-care (01) ==
PROVIDERS: Emergency Provider Emergency Medicine; PCP Internal Medicine
DX: R44.0 Auditory hallucinations (principal); F79 Unspecified intellectual disabilities; R05.9 Cough, unspecified; E11.9 Type 2 diabetes mellitus without complications; Z79.4 Long term (current) use of insulin; Z79.899 Other long term (current) drug therapy; Z79.01 Long term (current) use of anticoagulants; Z03.818 Encounter for observation for suspected exposure to other biological agents ruled out; Z11.52 Encounter for screening for COVID-19
CPT/HCPCS: 36415; 80048; 81003; 85025; 87502; 87635; 99285; S9485

== ENCOUNTER → 2025-01-01 15:29 | Outpatient (BNVA) | payer MEDICARE, MEDICAID, SELFPAY | PROVIDERS: PCP Internal Medicine; Visit Provider Student in an Organized Health Care Education/Training Program | DX: E11.65 Type 2 diabetes mellitus with hyperglycemia (principal); Z79.4 Long term (current) use of insulin | CPT/HCPCS: 82947; 83036; 99212 ==

== ENCOUNTER 2025-01-05 07:17 | Outpatient (REF) | payer MEDICARE, MEDICAID, SELFPAY ==
--- OUTSIDE RECORDS SUMMARY | 2023-12-25 12:00 | XMS_ITS ---
Author Organization [facility] Address [address] [place] [address] Care Team Providers Care Distribution Collection Operator Name Role Phone Sagar, Kartik Primary Care Provider [phone] Marcus Tracey Unavailable [phone] Medications Medication SIG (Take, Route, Frequency, Duration) [...] Active Encounters Encounter Location Date Provider Diagnosis [facility] [place] [address] [place] [address] 12/25/2023 Marcus Tracey Plan Of Treatment Next Appt Details Provider Name:Marcus Tracey , 03/17/2025 04:00:00 PM, [address] [place], [address], Progress Notes * SIMMONSMoisesKarenOB:1975 ( 49 yo M)Acc No.[id number]:12/25/2023 Progress Note Patient: Gautam RODRIGUEZ Provider: Nneka Tracey DPM :1975 A ge:48 Y S ex:Male Date:12/25/2023 Address:[facility] , [address] [place], [place] [phone] Pcp:Reji Keith Subjective: * Chief Complaints: * [...] Date: 12/25/2023 Generated for Luz burris/Danny/Nadine on: 01/05/2025 07:20 AM EDT
--- OUTSIDE RECORDS SUMMARY | 2024-02-19 11:15 | XMS_ITS ---
Author Organization [facility] Address [address] [place] [address] Care Team Providers Care Program Planner Name Role Phone Reji Keith Primary Care Provider Marcus Tracey [phone] Encounters Encounter Location Date Provider Diagnosis [address] [address] 02/19/2024 Marcus Tracey Plan Of Treatment Next Appt Details Provider Name:Marcus Tracey , 03/17/2025 04:00:00 PM, [address] [place] [address], [address], Progress Notes * Moises SIMMONSinDOB:1975 ( 49 yo M)Acc No.[id number]:02/19/2024 Progress Note Patient: Gautam RODRIGUEZ Provider: Nneka Tracey DPM :1975 A ge:48 Y S ex:Male Date:02/19/2024 Address:[facility] , [address] [place], [place] [phone] Pcp:Reji Keith Subjective: * Chief Complaints: * * Medical History: Objective: * Vitals: Assessment: Plan: * Treatment: * Images: * The named appointment provid er may or may not be the originator of this progress note, and it is not deemed complete until electronically signed by the appointment provider. Sign off status: Pending * Provider: Nneka Tracey DPM Date: 1 Generated for Luz Sterling on: 0 01/05/2025 07:20 AM EDT
--- OUTSIDE RECORDS SUMMARY | 2024-05-23 07:40 | XMS_ITS ---
Author Organization [facility] Address [address] [place] [phone] Care Team Providers Care Apparel Trimmings Sales Representative Name Role Phone Yael (RETIRED) Trevor ALONZO Primary Care Provide r Naveen Escobar Jr REASON FOR VISIT screening Encounters Encounter Location Date Provider Diagnosis [facility] Outpatient [address] [place] [phone] 05/23/2024 Naveen Yang Jr Colon cancer screening Z12.11 Assessments Encounter Date Diagnosis (ICD Code) Assessment Notes Treatment Notes Treatment Clinical Notes Section Notes 05/23/2024 Colon cancer screening (ICD-10 - Z12.11) Plan Of Treatment No Information Progress Notes * ANA FERMIN ADOB:1975 (49 yo M)Acc No.[id number]:05/23/2024 COLON WITH MAC Patient: FERMIN RODRIGUEZ Provider: Twan Yang MD :1975 A ge:48 Y S ex:Male Date:05/23/2024 Address:[address] [place], [place] [phone] Pcp:Trevor Conley (RETIRED )MD Subjective: * Chief Complaints: * 1 . Screening. * Medical History: Objective: * Vitals: Assessment: * Assessment: 1. C olon cancer screening - Z12.11 (Primary) Plan: * Treatment: * Procedure Codes: 4 5378 DIAGNOSTIC COLONOSCOPY, 0528F RCMND FLW-UP 10 YRS DOCD * * The named appointment provid er may or may not be the originator of this progress note, and it is not deemed complete until electronically signed by the appointment provider. Sign off status: Pending * Provider: Twan Yang MD Date: 0 05/23/2024 Generated for Luz burris/Danny/Nadine on: 0 01/05/2025 07:20 AM EDT
--- OUTSIDE RECORDS SUMMARY | 2025-01-05 07:20 | XMS_ITS | Patient Health Record ---
Author Organization [facility] Address [address] [place] [address] Care Team Providers Care Manager Visual Name Role Phone Reji Keith Primary Care Provider Marcus Tracey [phone] Allergies Allergen (clinical drug ingredient) Drug/Non Drug [...] Problem Acquired hammer toe of right foot (27864469192198 05) Other hammer toe(s) (acquired), right foot (M20.41) Active confirmed Response to treatment,I mprovement Problem Acquired hammer toe of left foot (77518764972686 03) Other hammer toe(s) (acquired), left foot (M20.42) Active confirmed Response to treatment,I mprovement Problem Type II diabetes mellitus without complication (582249303) Type 2 diabetes mellitus without complication (E11.9) Active confirmed Vital Signs Blood pressure diastolic 65 mm Hg 11/25/2024 Height 5ft 6in in 11/25/2024 Blood pressure systolic 120 mm Hg 11/25/2024 Weight 166 lbs 11/25/2024 BMI 26.79 kg/m2 11/25/2024 Procedures Procedure Date Ordered Date Performed Result Body Sit e 52164-XYUBHZM NAIL, 6 OR MORE 05/13/2024 N/A 86792-YJRSCOL NAIL, 6 OR MORE 08/19/2024 N/A 25028-[id number] NAIL, 6 OR MORE 11/25/2024 N/A Encounters Encounter Location Date Provider Diagnosis [address] [address] 05/13/2024 Marcus Kyung Pain in right toe(s) M79.674 ; Tinea unguium B35.1 ; Pain in left toe(s) M79.675 ; Type 2 diabetes mellitus without complication E11.9 ; Other hammer toe(s) (acquired), right foot M20.41 and Other hammer toe(s) (acquired), left foot M20.[address] [address] 08/19/2024 Marcus Kyung Pain in right toe(s) M79.674 ; Tinea unguium B35.1 ; Pain in left toe(s) M79.675 and Type 2 diabetes mellitus without complication E11.[address] [address] 11/25/2024 Marcus Kyung Pain in right toe(s) M79.674 ; Other hammer toe(s) (acquired), right foot M20.41 ; Tinea unguium B35.1 ; Pain in left toe(s) M79.675 ; Type 2 diabetes mellitus without complication E11.9 and Other hammer toe(s) (acquired), left foot M20.[address] [address] 02/18/2024 Marcus Kyung Assessments Encounter Date Diagnosis [...] M79.674) 11/25/2024 Tinea unguium (ICD-10 - B35.1) 05/13/2024 Tinea unguium (ICD-10 - B35.1) 05/13/2024 Pain in left toe(s) (ICD-10 - M79.675) 08/19/2024 Tinea unguium (ICD-10 - B35.1) 08/19/2024 Pain in left toe(s) (ICD-10 - M79.675) 11/25/2024 Pain in left toe(s) (ICD-10 - [...] Treatment Pending Test Test Name Order Date [id number] NAIL, 6 OR MORE 02/03/2020 [id number] NAIL, 6 OR MORE 05/07/2020 [id number] NAIL, 6 OR MORE 11/26/2020 03855-[id number] NAIL, 6 OR MORE 03/04/2021 42522-[id number] NAIL, 6 OR MORE 06/07/2021 [id number] NAIL, 6 OR MORE 09/19/2022 19568-[id number] NAIL, 6 OR MORE 12/26/2022 49075-[id number] NAIL, 6 OR MORE 09/25/2023 62828-IAXWFVG NAIL, 6 OR MORE 05/13/2024 33345-TLBDWGM NAIL, 6 OR MORE 08/19/2024 93030-JUCRFFP NAIL, 6 OR MORE 11/25/2024 14824-BFGJFOC NAIL, 6 OR MORE 01/20/2022 39899-[id number] NAIL, 6 OR MORE 09/06/2021 48158-[id number] NAIL, 6 OR MORE 08/10/2020 [id number] NAIL, 6 OR MORE 06/13/2022 [id number] NAIL, 6 OR MORE 03/27/2023 [id number] NAIL, 6 OR MORE 06/26/2023 Next Appt Details Provider Name:Marcus Tracey , 03/17/2025 04:00:00 PM, [address] [place], [address], Insurance Providers Payer Name Payer Address Payer Phone Subscriber Number Group Number Insured Name Patient Relationship to Insured Coverage Start Date Coverage End Date Medicare National [employer] [address] [facility] [place] [address] [id number] Gautam Simmons Self - patient is the insured Medical (General) History Medical History History ICD Code Anxiety Depression Gout Psychiatric disorder Chicken pox type II diabetes ptsd CAD (Cholesterol) Mild Retardation Surgical History Surgery Date(Month/Year) Hospitalization History Reason Date(Month/Year) [facility] ER sodium too high 12/23
--- OUTSIDE RECORDS SUMMARY | 2025-01-05 07:20 | XMS_ITS | Clinical Summary ---
Author Organization [employer] Address [address] [facility] [address] [place] [address] Care Team Providers Care Inspector Fibrous Wallboard Name Role Phone Unavailable Primary Care Provider [...] Most Recently Relevant to Health Maintenance Insurance [facility] MEDICAID STAND ADULT
--- OUTSIDE RECORDS SUMMARY | 2025-01-05 07:21 | XMS_ITS | Patient Health Record ---
Author Organization [facility] Address [address] [place] [address] Care Team Providers Care Suspect Artist Supervisor Name Role Phone Yael (RETIRED) Trevor ALONZO Primary Care Provide Naveen Dixon Jr Unavailable Allergies Allergen (clinical drug ingredient) Drug/Non Drug Allergy documented on EMR Reaction Allergy Type Onset Date Status Penicillin Unknown Drug Allergy Active Results Component Value Reference Range Notes Glucose, Whole Blood Reviewed date:05/23/2024 09:24:07 PM Interpretation: Performing Lab:[facility], [address] [place] [id number] Notes/Report: Glucose, Whole Blood 233 60-115 mg/dL METER # : [id number] Reason For Referral No Information Medications Medication [...] Problem Status W/U Status Risk Notes Problem 629596296 Colon cancer screening (Z12.11) Active confirmed Problem 954714973 long-term (curre nt) use of anticoagulants (Z79.01) Active confirmed Problem 862661813 Long-term curren t use of high risk medication other than anticoagulant (Z79.899) Active confirmed Vital Signs Blood pressure diastolic 00 mm Hg 05/01/2024 Height 5 ft 7 in in 05/01/2024 Blood pressure systolic 00 mm Hg 05/01/2024 Weight 171 lbs 05/01/2024 BMI 26.78 kg/m2 05/01/2024 Encounters Encounter Location Date Provider Diagnosis [facility] [address], [place] [id number] 05/23/2024 Naveen Yang Jr Colon cancer screening Z12.11 [facility] [address] [facility] [address] [place] [address] 05/01/2024 Naveen Yang Jr Colon cancer screening Z12.11 ; Long-term current use of high risk medication other than anticoagulant Z79.899 and long-term (current) use of anticoagulants Z79.01 [facility] [address] [place] [address] 05/14/2024 Naveen Yang Jr [facility] [address] [place] [address] 05/19/2024 Naveen Yang Jr Assessments Encounter Date [...] [place] [address] [place] [address] [id number] FERMIN PEREZ Self - patient is the insured MEDICAID OF [facility] [address] [place] [address] [phone] [id number] FERMIN PEREZ Self - patient is the insured Medical (General) History Medical History History ICD Code Diabetes mellitus type 2 Pulmonary embolus Schizoaffective disorder bipolar disorder Intellectual disability PTSD Hyperlipidemia Surgical History Surgery Date(Month/Year) Excision of right axillary lesion
--- OUTSIDE RECORDS SUMMARY | 2025-01-05 07:21 | XMS_ITS | Encounter Summary ---
Author Organization [employer] [facility] Address [address] [facility] [address] [place] [address] Care Team Providers Care Immigration Officer Name Role Phone Unavailable Primary Care [...]
[2025-01-05 10:41] LABS: MANUAL DIFF FLAG NO
[2025-01-05 10:46] LABS: Hematocrit 41.0 % (42.0-52.0); Hemoglobin 13.3 g/dl (14.0-18.0); Imm Gran Abs Auto 0.04 X10*3/uL (0.00-0.03); Imm Gran Pct Auto 0.5 % (0.0-0.4); Lymphocytes Absolute Auto 2.6 X10*3/uL (1.2-4.9); Mean Corpuscular HGB Conc 32.4 g/dl (31.0-36.0); Mean Corpuscular Hemoglobin 28.2 pg (27.0-33.0); Mean Corpuscular Volume 86.9 fL (80.0-98.0); NRBC Abs Auto 0.000 X10*3/uL (0.0-0.012); NRBC Pct Auto 0.0 /100WBC (0.0-0.2); Platelet Count 259 X10*3/uL (160-400); Red Blood Count 4.72 X10*6/uL (4.60-5.80); White Blood Count 8.6 X10*3/uL (4.8-10.8)
== END 2025-01-05 07:18 | disposition home or self-care (01) ==
LOC: HO.10HDL 07:17
PROVIDERS: Visit Provider Psychiatry & Neurology Psychiatry
DX: Z79.899 Other long term (current) drug therapy (principal)
CPT/HCPCS: 36415; 85025

== ENCOUNTER 2025-01-05 19:18 | Inpatient (IN) | payer MEDICARE, MEDICAID, SELFPAY ==
--- NOTE | ~2025-01-05 | CT_ITS ---
CLINICAL HISTORY: sepsis CT chest with contrast Comparison: None provided Findings: The heart is normal size. No pericardial effusion. No aneurysm of thoracic aorta. Several small prevascular mediastinal nodes nonspecific and could be reactive. No hilar or axillary adenopathy. Ground-glass opacities in the lower lobes bilaterally. No consolidation, pleural effusion or pneumothorax. Thyroid and thoracic esophagus within normal limits. The upper abdomen demonstrates no acute process. No acute fractures. Degenerative changes thoracic spine. IMPRESSION: 1. Bilateral lower lobe ground-glass opacities may represent edema versus atypical pneumonia. 2. Small prevascular mediastinal nodes nonspecific and could be reactive. This document has been electronically signed by: Faina Deutsch MD on 01/06/2025 00:13:14
--- NOTE | ~2025-01-05 | CT_ITS ---
CLINICAL HISTORY: Stroke Protocol CT angiography head and neck with contrast. 3D Postprocessing. Comparison: None provided Findings: Aortic arch and arch vessels are patent. Bilateral common carotid arteries are unremarkable. Bilateral carotid bifurcations are unremarkable. Patent bilateral internal carotid arteries which are tortuous and retropharyngeal course bilaterally. Bilateral external carotid arteries and bilateral vertebral arteries are patent. Bilateral intracranial internal carotid arteries are patent. Bilateral anterior, middle and posterior cerebral arteries are patent. No intracranial large vessel occlusion. No aneurysm. No abnormal intracranial enhancement. The visualized thyroid gland is unremarkable. No cervical mass or fluid collection. Lung apices clear. No acute fracture. IMPRESSION: Patent head and neck CTA. This document has been electronically signed by: Faina eDutsch MD on 01/05/2025 20:52:25
--- NOTE | ~2025-01-05 | CT_ITS ---
CLINICAL HISTORY: Stroke Protocol CT head without contrast Comparison: CT/SR - CT HEAD/BRAIN WO IV CON - 08/03/24 23:54 EDT Findings: No intra-axial mass, midline shift, hydrocephalus, or acute hemorrhage. No significant atrophy-like change or white matter disease. Mild atherosclerotic vascular disease. There is no sinus or mastoid fluid. The orbits are unremarkable. There is no acute skull fracture. IMPRESSION: 1. No acute intracranial findings. This document has been electronically signed by: Faina Deutsch MD on 01/05/2025 20:10:07
--- NOTE | ~2025-01-05 | CT_ITS ---
CLINICAL HISTORY: sepsis CT abdomen and pelvis with contrast Comparison: None provided Findings: No consolidation or effusion. The gallbladder is unremarkable. No biliary ductal dilatation. The liver, spleen, pancreas and adrenal glands are unremarkable. Enhancement of bilateral kidneys with no ureteral stones and no hydronephrosis or hydroureter. Lobulated bilateral kidneys. No bowel obstruction, pneumoperitoneum, or pneumatosis. No free fluid or loculated fluid collection. Bilateral fat containing inguinal hernias. Pelvic contents unremarkable. Normal appendix. No aneurysm of the abdominal aorta. No acute fracture. Mild levocurvature of lumbar spine either positional or scoliosis. IMPRESSION: No acute findings. This document has been electronically signed by: Faina Deutsch MD on 01/06/2025 00:15:02
--- NOTE | ~2025-01-05 | XR_ITS ---
CLINICAL HISTORY: cough 2 view chest x-ray Comparison: CR/SR - XR CHEST 2 VIEWS - 05/22/22 16:07 EST Findings: Heart size is normal. No consolidation, pleural effusion or pneumothorax. No acute fracture. Degenerative changes of the thoracic spine. IMPRESSION: 1. No acute findings. This document has been electronically signed by: Faina Deutsch MD on 01/05/2025 22:01:25
[2025-01-05 19:24] VITALS: BP 180/93; PULSE 117; RESP 20; TEMP 37.3; O2SAT 97; BMI 26.1
--- NOTE | 2025-01-05 19:24 | ED.GENADULT ---
HPI - General Adult General Chief complaint: General Medical Stated complaint: shaking, hard time speaking Time Seen by Provider: 01/05/25 20:15 Related Data Home Medications ?Medication ?Instructions ?Recorded ?Confirmed ascorbic acid (vitamin C) 500 mg 1 tab PO DAILY 03/02/20 01/01/25 tablet (Vitamin C) cholecalciferol (vitamin D3) 25 1 cap PO DAILY 03/02/20 01/01/25 mcg (1,000 unit) capsule (Vitamin D3) haloperidol 5 mg tablet 5 mg PO BEDTIME 03/02/20 01/01/25 sertraline 100 mg tablet 1.5 tab PO DAILY 03/02/20 01/01/25 simvastatin 80 mg tablet 1 tab PO DAILY 03/02/20 01/01/25 clonazepam 1 mg tablet 0.5 mg PO BID 07/02/23 01/01/25 benztropine 1 mg tablet 1 mg PO BID 08/04/24 01/01/25 allopurinol 100 mg tablet 200 mg PO DAILY 12/28/24 01/01/25 clonazepam 0.5 mg tablet 0.5 mg PO BID 12/28/24 01/01/25 clozapine 50 mg tablet 50 mg PO DAILY 12/28/24 01/01/25 insulin glargine 100 unit/mL (3 20 unit subcut QPM 01/01/25 01/01/25 mL) subcutaneous pen (Basaglar KwikPen U-100 Insulin) Previous Rx's ?Medication ?Instructions ?Recorded pen needle, diabetic 32 gauge x #200 ea 07/08/24 blood sugar diagnostic (FreeStyle #100 ea 07/15/24 Lite Strips) lancets 28 gauge (FreeStyle #100 ea 07/16/24 Lancets) multivitamin 1 tab PO DAILY #90 tabs 09/25/24 allopurinol 100 mg tablet 100 mg PO DAILY #90 tabs 09/26/24 clozapine 100 mg tablet 300 mg (3 x 100 mg) PO BEDTIME #90 09/26/24 tabs insulin aspart U-100 100 unit/mL 1 sliding scale dose subcut 10/01/24 (3 mL) subcutaneous pen (Novolog USEASDIRECTD 30 days #18 mL FlexPen U-100 Insulin aspart) apixaban 2.5 mg tablet (Eliquis) 2.5 mg PO BID #180 tabs 10/15/24 metformin 1,000 mg tablet 1,000 mg PO BID #180 tabs 12/15/24 pen needle, diabetic 32 gauge x #300 ea 01/01/25 (Emmy 2nd Gen Pen Needle) fluticasone propionate 50 1 spray intranasal BID #16 grams 01/02/25 mcg/actuation nasal spray,suspension Allergies Allergy/AdvReac Type Severity Reaction Status Date / Time mite-Dermatophagoides Allergy Unknown Itching Verified 01/05/25 19:33 farinae, mary (dust mite - [place]) Penicillins (PENICILLINS) Allergy Unknown Unknown Verified 01/05/25 19:32 pollen extracts Allergy Unknown Itching Verified 01/05/25 19:33 PMFSH Past Medical History Medical History 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 Gout Hyperlipidemia Bipolar 1 disorder Diabetes insipidus High cholesterol Anxiety PTSD (post-traumatic stress disorder) Schizo affective schizophrenia Surgical History History of colonoscopy (~05/23/24) Hx of tooth extraction Hx of excision of mass Family History Family History Mother Fibromyalgia Post traumatic stress disorder (PTSD) Anxiety Osteopenia High cholesterol Anemia Cerebellar ataxia Social History Social History Household Members: Foster Family Household Members Other:: Jarvis and Amarilis foster Housing: Other Housing Other:: halfway/Assisted living Do you presently have visiting nurse or other home services: Yes Unable to assess alcohol history related to: Unknown Alcohol intake: never Patient Tobacco Use Status: Never used Tobacco e-Cigarette/Vaping Use: Never Used Substance Use Type: Caffiene Advance Directives: Yes Advance Directives on File: Yes Advance Directives Date on File: 07/05/23 service: No Current occupational status: disabled Sexual orientation: Don't Know Cognitive needs: No Hearing needs: No Vision needs: No Physical Exam ED Vital Signs: Vital Signs - 24 hr 01/05/25 19:24 Temperature 99.1 F Pulse Rate 117 H Respiratory Rate 20 Blood Pressure 180/93 H Pulse Oximetry 97 Oxygen Delivery Method Room Air BMI result Body Mass Index 26.1 Course Course Course Narrative: This is a rapid medical exam performed by Veda Sanders NP: Additional HPI, ROS, PE not included below will be deferred to primary provider. Patient is a 49-year-old male with history of intellectual disability, schizoaffective disorder, PTSD, T2DM, PE on apixaban, diabetes insipidus presenting to the ED with his mother/HCP who reports that his caregiver called her around one hour ago. Discussed with Dr. Salazar who feels that given difficulty in performing assessment, patient should be activated as a stroke alert. sheet metal mechanic notified. ED stroke orders entered. Medications Administered Discontinued Medications Generic Name Dose Route Start Last Admin Trade Name Freq PRN Reason Stop Dose Admin Iohexol 75 ml 01/05/25 20:02 01/05/25 20:02 Iohexol 350 Mg/Ml 100 Ml Infus..Btl IV 01/05/25 20:03 75 ml ONCE ONE Administration Medical Decision Making Lab Data 01/05/25 19:44 01/05/25 19:44 Labs: Lab Results 01/05/25 01/05/25 01/05/25 Range/Units 19:42 19:44 20:31 WBC 10.9 H (4.8-10.8) X10*3/uL RBC 4.58 L (4.60-5.80) X10*6/uL Hgb 13.2 L (14.0-18.0) g/dl Hct 38.4 L (42.0-52.0) % MCV 83.8 (80.0-98.0) fL MCH 28.8 (27.0-33.0) pg MCHC 34.4 (31.0-36.0) g/dl RDW 13.7 (11.0-16.0) % Plt Count 245 (160-400) X10*3/uL MPV 10.3 (9.4-12.4) fL Immature Gran % (Auto) 0.4 (0.0-0.4) % Neut % (Auto) 76.7 H (45-73) % Lymph % (Auto) 15.1 L (20-40) % [place] % (Auto) 4.0 (2-11) % Eos % (Auto) 3.2 (0-4) % Baso % (Auto) 0.6 (0-2) % Lymph # (Auto) 1.6 (1.2-4.9) X10*3/uL [place] # (Auto) 0.4 (0.1-1.2) X10*3/uL Eos # (Auto) 0.4 (0.0-0.4) X10*3/uL Baso # (Auto) 0.1 (0.0-0.2) X10*3/uL Abs Immat Gran (auto) 0.04 H (0.00-0.03) X10*3/uL Absolute Neuts (auto) 8.4 H (2.0-8.3) x10*3/uL Absolute Nucleated RBC 0.000 (0.0-0.012) X10*3/uL Nucleated RBC % (auto) 0.0 (0.0-0.2) /100WBC PT 10.6 L (10.9-12.4) SEC Whole Blood PT 11.9 (11.1-13.5) sec INR 0.9 (0.9-1.1) Whole Blood INR 1.0 (0.9-1.1) APTT 31.8 (26.7-34.1) SEC Sodium 140 (135-145) mmol/L Potassium 4.0 (3.3-5.1) mmol/L Chloride 105 (96-108) mmol/L Carbon Dioxide 22 (22-29) mmol/L Anion Gap 17 (12-20) BUN 16 (9-16) mg/dL Creatinine 1.24 (0.5-1.4) mg/dL Estim Creat Clear Calc 68.8 Estimated GFR > 60 POC Glucose 206 H (60-115) mg/dL Random Glucose 207 H (60-115) mg/dL Calcium 9.6 (8.4-10.2) mg/dL Troponin I High Sens < 2.7 (<3.5-35.0) ng/L Triglycerides 327 H (<150) mg/dL Cholesterol 210 H (<200) mg/dL LDL Cholesterol, Calc 97 (<100) mg/dL HDL Cholesterol 48 (>40) mg/dL Discharge Plan Discharge Prescriptions: No Action (DME) FreeStyle Lite Strips Strip See Rx Instructions .Route Qty: 100 4RF Rx Instructions: As directed tests 3X day (DME) lancets [FreeStyle Lancets] 28 gauge misc See Rx Instructions .ROUTE .MEDSUPPLY Qty: 100 1RF Rx Instructions: 3 times a day prn sensor failure or to confirm glucose dispense as 33 guage if available multivitamin Tablet 1 tab PO DAILY Qty: 90 1RF allopurinol 100 mg tablet 100 mg PO DAILY Qty: 90 3RF clozapine 100 mg tablet 300 mg PO BEDTIME Qty: 90 3RF insulin aspart U-100 [Novolog FlexPen U-100 Insulin] 100 unit/mL (3 mL) insulin pen 1 sliding scale dose subcut USEASDIRECTD MDD 54 30 Days Qty: 18 3RF Rx Instructions: 4-18 units t.i.d. per scale metformin 1,000 mg tablet 1,000 mg PO BID Qty: 180 0RF fluticasone propionate 50 mcg/actuation spray,suspension 1 spray intranasal BID Qty: 16 4RF haloperidol 5 mg Tablet 5 mg PO BEDTIME sertraline 100 mg tablet 1.5 tab PO DAILY simvastatin 80 mg tablet 1 tab PO DAILY ascorbic acid (vitamin C) [Vitamin C] 500 mg tablet 1 tab PO DAILY cholecalciferol (vitamin D3) [Vitamin D3] 25 mcg (1,000 unit) capsule 1 cap PO DAILY benztropine 1 mg tablet 1 mg PO BID clonazepam 1 mg tablet 0.5 mg PO BID clonazepam 0.5 mg Tablet 0.5 mg PO BID Rx Instructions: and may take 1 additional dose PRN allopurinol 100 mg Tablet 200 mg PO DAILY clozapine 50 mg Tablet 50 mg PO DAILY insulin glargine [Basaglar KwikPen U-100 Insulin] 100 unit/mL (3 mL) insulin pen 20 unit subcut QPM (DME) pen needle, diabetic [Emmy 2nd Gen Pen Needle] 32 gauge x 5/32 needle See Rx Instructions .Route Qty: 300 3RF Rx Instructions: use 4 times a day (DME) pen needle, diabetic 32 gauge x 5/32 needle See Rx Instructions .ROUTE .MEDSUPPLY Qty: 200 6RF Rx Instructions: qid Eliquis 2.5 mg tablet 2.5 mg PO BID Qty: 180 1RF Print Language: Ken[place]
--- NOTE | 2025-01-05 19:34 | ECG_ITS ---
Test Reason : STROKE ALERT Blood Pressure : */* mmHG Vent. Rate : 111 BPM Atrial Rate : 111 BPM P-R Int : 168 ms QRS Dur : 92 ms QT Int : 336 ms P-R-T Axes : 23 -16 75 degrees QTcB Int : 456 ms Sinus tachycardia Septal infarct (cited on or before 08-Jul-2024) Abnormal ECG When compared with ECG of 04-Aug-2024 12:07, No significant change was found Referred By: Zainab Sanders Electronically Signed By: ARI HENDERSON
[2025-01-05 19:46] LABS: Glucose, Whole Blood 206 mg/dL (60-115)
[2025-01-05 19:54] LABS: MANUAL DIFF FLAG NO
[2025-01-05 19:55] LABS: Hematocrit 38.4 % (42.0-52.0); Hemoglobin 13.2 g/dl (14.0-18.0); Imm Gran Abs Auto 0.04 X10*3/uL (0.00-0.03); Imm Gran Pct Auto 0.4 % (0.0-0.4); Lymphocytes Absolute Auto 1.6 X10*3/uL (1.2-4.9); Mean Corpuscular HGB Conc 34.4 g/dl (31.0-36.0); Mean Corpuscular Hemoglobin 28.8 pg (27.0-33.0); Mean Corpuscular Volume 83.8 fL (80.0-98.0); NRBC Abs Auto 0.000 X10*3/uL (0.0-0.012); NRBC Pct Auto 0.0 /100WBC (0.0-0.2); Platelet Count 245 X10*3/uL (160-400); Red Blood Count 4.58 X10*6/uL (4.60-5.80); White Blood Count 10.9 X10*3/uL (4.8-10.8)
[2025-01-05 20:00] LABS: INTERNATIONAL NORM RATIO 0.9 (0.9-1.1); Prothrombin Time 10.6 SEC (10.9-12.4)
[2025-01-05] MEDS: iohexoL 350 MG/ML 100 ML INFUS..BTL 75 ML IV ×2 (20:02→22:53)
[2025-01-05 20:03] LABS: Partial Thromboplastin Time 31.8 SEC (26.7-34.1)
[2025-01-05 20:15] LABS: Stroke Lab Use COMPLETE
[2025-01-05 20:20] LABS: Anion Gap 17 (12-20); Blood Urea Nitrogen 16 mg/dL (9-16); Calcium 9.6 mg/dL (8.4-10.2); Carbon Dioxide 22 mmol/L (22-29); Chloride 105 mmol/L (96-108); Cholesterol 210 mg/dL (<200); Creatinine Clr Calc Pharmacy 68.8; Estimated Glomerular Filt Rate > 60; HDL Cholesterol 48 mg/dL (>40); Potassium 4.0 mmol/L (3.3-5.1); Sodium 140 mmol/L (135-145); Triglycerides 327 mg/dL (<150)
[2025-01-05 20:26] LABS: Troponin-I High Sensitivity < 2.7 ng/L (<3.5-35.0)
[2025-01-05 20:43] LABS: Prothrombin Time Whole Bld POC 11.9 sec (11.1-13.5); ~PT, ~INR - Anti Coag Clinic 1.0 (0.9-1.1)
--- NOTE | 2025-01-05 21:16 | ED.GENADULT ---
HPI - General Adult General Chief complaint: General Medical Stated complaint: shaking, hard time speaking Time Seen by Provider: 01/05/25 20:15 Source: patient Mode of arrival: ambulatory Limitations: other (intellectual disability) History of Present Illness ED Provider: Dr. Salazar HPI narrative: This is a 49-year-old male history of intellectual disability, schizoaffective disorder, diabetes, diabetes insipidus, saddle pulmonary embolism currently on Eliquis presenting to the hospital today for evaluation of slow speech and speech changes. Patient was brought in by his foster home film or videotape editor for further evaluation. His symptoms started an hour prior to patient arrival. Stroke alert was activated for the patient due to speech changes. However patient is not TNK candidate. We did order CT head and CTA of the head and neck. History is limited from patient due to old into the left show disability. Related Data Home Medications ?Medication ?Instructions ?Recorded ?Confirmed ascorbic acid (vitamin C) 500 mg 1 tab PO DAILY 03/02/20 01/01/25 tablet (Vitamin C) cholecalciferol (vitamin D3) 25 1 cap PO DAILY 03/02/20 01/01/25 mcg (1,000 unit) capsule (Vitamin D3) haloperidol 5 mg tablet 5 mg PO BEDTIME 03/02/20 01/01/25 sertraline 100 mg tablet 1.5 tab PO DAILY 03/02/20 01/01/25 simvastatin 80 mg tablet 1 tab PO DAILY 03/02/20 01/01/25 clonazepam 1 mg tablet 0.5 mg PO BID 07/02/23 01/01/25 benztropine 1 mg tablet 1 mg PO BID 08/04/24 01/01/25 allopurinol 100 mg tablet 200 mg PO DAILY 12/28/24 01/01/25 clonazepam 0.5 mg tablet 0.5 mg PO BID 12/28/24 01/01/25 clozapine 50 mg tablet 50 mg PO DAILY 12/28/24 01/01/25 insulin glargine 100 unit/mL (3 20 unit subcut QPM 01/01/25 01/01/25 mL) subcutaneous pen (Basaglar KwikPen U-100 Insulin) Previous Rx's ?Medication ?Instructions ?Recorded pen needle, diabetic 32 gauge x #200 ea 07/08/24 blood sugar diagnostic (FreeStyle #100 ea 07/15/24 Lite Strips) lancets 28 gauge (FreeStyle #100 ea 07/16/24 Lancets) multivitamin 1 tab PO DAILY #90 tabs 09/25/24 allopurinol 100 mg tablet 100 mg PO DAILY #90 tabs 09/26/24 clozapine 100 mg tablet 300 mg (3 x 100 mg) PO BEDTIME #90 09/26/24 tabs insulin aspart U-100 100 unit/mL 1 sliding scale dose subcut 10/01/24 (3 mL) subcutaneous pen (Novolog USEASDIRECTD 30 days #18 mL FlexPen U-100 Insulin aspart) apixaban 2.5 mg tablet (Eliquis) 2.5 mg PO BID #180 tabs 10/15/24 metformin 1,000 mg tablet 1,000 mg PO BID #180 tabs 12/15/24 pen needle, diabetic 32 gauge x #300 ea 01/01/25 (Emmy 2nd Gen Pen Needle) fluticasone propionate 50 1 spray intranasal BID #16 grams 01/02/25 mcg/actuation nasal spray,suspension Allergies Allergy/AdvReac Type Severity Reaction Status Date / Time mite-Dermatophagoides Allergy Unknown Itching Verified 01/05/25 19:33 farinae, mary (dust mite - [place]) Penicillins (PENICILLINS) Allergy Unknown Unknown Verified 01/05/25 19:32 pollen extracts Allergy Unknown Itching Verified 01/05/25 19:33 Review of Systems Review of Systems: Pertinent review of systems as mentioned in HPI. All other system otherwise negative. 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 Gout Hyperlipidemia Bipolar 1 disorder Diabetes insipidus High cholesterol Anxiety PTSD (post-traumatic stress disorder) Schizo affective schizophrenia Surgical History History of colonoscopy (~05/23/24) Hx of tooth extraction Hx of excision of mass Family History Family History Mother Fibromyalgia Post traumatic stress disorder (PTSD) Anxiety Osteopenia High cholesterol Anemia Cerebellar ataxia Social History Social History Household Members: Foster Family Household Members Other:: Jarvis and Amarilis foster Housing: Other Housing Other:: prison/Assisted living Do you presently have visiting nurse or other home services: Yes Unable to assess alcohol history related to: Unknown Alcohol intake: never Patient Tobacco Use Status: Never used Tobacco Smoked in Last 30 Days: No e-Cigarette/Vaping Use: Never Used Use of substances other than those prescribed or required for medical reasons: No Substance Use Type: Caffiene Advance Directives: Yes Advance Directives on File: Yes Advance Directives Date on File: 07/05/23 service: No Current occupational status: disabled Sexual orientation: Don't Know Cognitive needs: No Hearing needs: No Vision needs: No Physical Exam ED Exam Exam: General: Appears diaphoretic and warm to touch Head: Normacephalic, atraumatic ENT: oral mucosa moist, neck supple, no tracheal deviation Cardiovascular: regular rate, regular rhythm, no murmurs, rubbing, gallops Respiratory: CTAB, no wheeze, rales, rhonchi Gastrointestinal: Soft, non distended, non tender, non guarding Extremities: No limb pain or swelling, no calf tenderness Neurological: Awake and alert, no facial droop noted Skin: Warm and diaphoretic Psychiatric: Appropriate mood and thoughts Vital Signs: Vital Signs - 24 hr 01/05/25 19:24 01/05/25 21:45 01/05/25 21:51 Temperature 99.1 F 98.0 F 98.0 F Pulse Rate 117 H 106 H 102 H Pulse Rate [Monitor] Respiratory Rate 20 17 Blood Pressure 180/93 H 168/90 H Pulse Oximetry 97 96 Oxygen Delivery Method Room Air Room Air 01/05/25 23:44 01/06/25 00:05 01/06/25 00:07 Temperature 98.7 F 98.4 F Pulse Rate 96 88 Pulse Rate [Monitor] 101 H Respiratory Rate 22 H 18 Blood Pressure 147/86 H 143/83 H Pulse Oximetry 96 95 Oxygen Delivery Method Room Air Room Air BMI result Body Mass Index 26.1 NIH Stroke Scale Internal: Initial- Upon Arrival Time: 03:53 Level of Consciousness: Alert Level of Consciousness Questions: Answers neither question correctly (limited due to intellectual disability) Level of Consciousness Commands: Performs both tasks correctly Best Gaze: Normal Visual: No visual loss Facial Palsy: Normal Motor Arm (Right): No drift Motor Arm (Left): No drift Motor Leg (Right): No drift Motor Leg (Left): No drift Limb Ataxia: Absent Sensory: Normal Best Language: No aphasia Dysarthia: Normal Extinction and Inattention: No abnormality Score: 2 Medications Administered Discontinued Medications Generic Name Dose Route Start Last Admin Trade Name Freq PRN Reason Stop Dose Admin Acetaminophen 975 mg 01/05/25 21:18 01/05/25 21:48 Acetaminophen 325 Mg Tablet PO 01/05/25 21:19 975 mg ONCE ONE Administration Sodium Chloride 1,000 mls @ 999 mls/hr 01/05/25 21:30 01/05/25 23:42 Ns IV 01/05/25 22:30 Infused .Q1H1M RUBEN Infusion Levofloxacin 750 mg in 150 mls @ 100 mls/hr 01/05/25 22:17 01/06/25 00:59 Levaquin IV 01/05/25 23:46 Infused ONCE ONE Infusion Vancomycin HCl 2,000 mg in 500 mls @ 250 mls/hr 01/05/25 22:30 01/06/25 00:59 Vancomycin/Ns IV 01/06/25 00:29 250 mls/hr ONCE ONE Administration Lactated Ringer's 1,000 mls @ 999 mls/hr 01/06/25 00:30 01/06/25 00:59 Lr IV 01/06/25 01:30 999 mls/hr .Q1H1M RUBEN Administration Lactated Ringer's 1,000 mls @ 1,100 mls/hr 01/06/25 01:30 01/06/25 01:36 Lr IV 01/06/25 02:24 1,100 mls/hr .Q55M RUBEN Administration Iohexol 75 ml 01/05/25 20:02 01/05/25 20:02 Iohexol 350 Mg/Ml 100 Ml Infus..Btl IV 01/05/25 20:03 75 ml ONCE ONE Administration Iohexol 75 ml 01/05/25 22:53 01/05/25 22:53 Iohexol 350 Mg/Ml 100 Ml Infus..Btl IV 01/05/25 22:54 75 ml ONCE ONE Administration Medical Decision Making Medical Decision Making MDM Narrative: 49-year-old male history of intellectual disability, PE on Eliquis, diabetes, diabetes insipidus presented hospital today for evaluation of altered mentation. Sepsis lab work has been obtained on patient due to him feeling warm and diaphoretic on exam. Patient does have a leukocytosis 10.9, patient lactic acid is elevated at 4.7. Chemistries unremarkable otherwise. Patient's troponin is negative. Patient's UA did not show any signs of UTI. Due to patient's altered mentation and history of intellectual disability. It is very difficult to discern the source of infection. We will obtain a CT chest abdomen and pelvis to assess for any signs of infection. Patient's CT imaging was significant for signs of possible pneumonia. Patient was cover broad-spectrum with vancomycin and IV Levaquin for antibiotic coverage. Patient will be admitted to the hospital for signs of sepsis. Differential Diagnosis Differential Diagnoses: The differential diagnosis associated with the presentation includes Sepsis, pneumonia, UTI, viral infection Admission/Observation Consideration of admission/observation: Escalation of care including admission/observation considered Consult Healthcare Provider Management of the patient was discussed with: Hospitalist Lab Data MDM Lab Attestation statement: I reviewed the patient's lab results. 01/05/25 19:44 01/05/25 19:44 Labs: Lab Results 01/05/25 01/05/25 01/05/25 Range/Units 19:42 19:44 20:31 WBC 10.9 H (4.8-10.8) X10*3/uL RBC 4.58 L (4.60-5.80) X10*6/uL Hgb 13.2 L (14.0-18.0) g/dl Hct 38.4 L (42.0-52.0) % MCV 83.8 (80.0-98.0) fL MCH 28.8 (27.0-33.0) pg MCHC 34.4 (31.0-36.0) g/dl RDW 13.7 (11.0-16.0) % Plt Count 245 (160-400) X10*3/uL MPV 10.3 (9.4-12.4) fL Immature Gran % (Auto) 0.4 (0.0-0.4) % Neut % (Auto) 76.7 H (45-73) % Lymph % (Auto) 15.1 L (20-40) % [place] % (Auto) 4.0 (2-11) % Eos % (Auto) 3.2 (0-4) % Baso % (Auto) 0.6 (0-2) % Lymph # (Auto) 1.6 (1.2-4.9) X10*3/uL [place] # (Auto) 0.4 (0.1-1.2) X10*3/uL Eos # (Auto) 0.4 (0.0-0.4) X10*3/uL Baso # (Auto) 0.1 (0.0-0.2) X10*3/uL Abs Immat Gran (auto) 0.04 H (0.00-0.03) X10*3/uL Absolute Neuts (auto) 8.4 H (2.0-8.3) x10*3/uL Absolute Nucleated RBC 0.000 (0.0-0.012) X10*3/uL Nucleated RBC % (auto) 0.0 (0.0-0.2) /100WBC PT 10.6 L (10.9-12.4) SEC Whole Blood PT 11.9 (11.1-13.5) sec INR 0.9 (0.9-1.1) Whole Blood INR 1.0 (0.9-1.1) APTT 31.8 (26.7-34.1) SEC Sodium 140 (135-145) mmol/L Potassium 4.0 (3.3-5.1) mmol/L Chloride 105 (96-108) mmol/L Carbon Dioxide 22 (22-29) mmol/L Anion Gap 17 (12-20) BUN 16 (9-16) mg/dL Creatinine 1.24 (0.5-1.4) mg/dL Estim Creat Clear Calc 68.8 Estimated GFR > 60 POC Glucose 206 H (60-115) mg/dL Random Glucose 207 H (60-115) mg/dL Lactic Acid (0.5-2.0) mmol/L Lactic Acid F/U @ 2Hr (0.5-2.0) mmol/L Lactic Acid F/U @ 4Hr (0.5-2.0) mmol/L Calcium 9.6 (8.4-10.2) mg/dL Troponin I High Sens < 2.7 (<3.5-35.0) ng/L Triglycerides 327 H (<150) mg/dL Cholesterol 210 H (<200) mg/dL LDL Cholesterol, Calc 97 (<100) mg/dL HDL Cholesterol 48 (>40) mg/dL Urine Color Urine Appearance Urine pH (5.0-9.0) Ur Specific [place] (1.005-1.025) Urine Protein (Neg-Trace) mg/dL Urine Glucose (UA) (Negative) mg/dL Urine Ketones (Negative) mg/dL Urine Blood (Negative) Urine Nitrite (Negative) Ur Leukocyte Esterase (Negative) COVID-19 (ROM[place]N) (Negative) COVID-19 Clin Com Influenza Type A (EVELINA) (Negative) Influenza Type B (EVELINA) (Negative) Influenza A & B Note 01/05/25 01/05/25 01/05/25 Range/Units 21:37 21:39 21:40 WBC (4.8-10.8) X10*3/uL RBC (4.60-5.80) X10*6/uL Hgb (14.0-18.0) g/dl Hct (42.0-52.0) % MCV (80.0-98.0) fL MCH (27.0-33.0) pg MCHC (31.0-36.0) g/dl RDW (11.0-16.0) % Plt Count (160-400) X10*3/uL MPV (9.4-12.4) fL Immature Gran % (Auto) (0.0-0.4) % Neut % (Auto) (45-73) % Lymph % (Auto) (20-40) % [place] % (Auto) (2-11) % Eos % (Auto) (0-4) % Baso % (Auto) (0-2) % Lymph # (Auto) (1.2-4.9) X10*3/uL [place] # (Auto) (0.1-1.2) X10*3/uL Eos # (Auto) (0.0-0.4) X10*3/uL Baso # (Auto) (0.0-0.2) X10*3/uL Abs Immat Gran (auto) (0.00-0.03) X10*3/uL Absolute Neuts (auto) (2.0-8.3) x10*3/uL Absolute Nucleated RBC (0.0-0.012) X10*3/uL Nucleated RBC % (auto) (0.0-0.2) /100WBC PT (10.9-12.4) SEC Whole Blood PT (11.1-13.5) sec INR (0.9-1.1) Whole Blood INR (0.9-1.1) APTT (26.7-34.1) SEC Sodium (135-145) mmol/L Potassium (3.3-5.1) mmol/L Chloride (96-108) mmol/L Carbon Dioxide (22-29) mmol/L Anion Gap (12-20) BUN (9-16) mg/dL Creatinine (0.5-1.4) mg/dL Estim Creat Clear Calc Estimated GFR POC Glucose (60-115) mg/dL Random Glucose (60-115) mg/dL Lactic Acid 4.7 H* (0.5-2.0) mmol/L Lactic Acid F/U @ 2Hr (0.5-2.0) mmol/L Lactic Acid F/U @ 4Hr (0.5-2.0) mmol/L Calcium (8.4-10.2) mg/dL Troponin I High Sens (<3.5-35.0) ng/L Triglycerides (<150) mg/dL Cholesterol (<200) mg/dL LDL Cholesterol, Calc (<100) mg/dL HDL Cholesterol (>40) mg/dL Urine Color Yellow Urine Appearance Clear Urine pH 5.5 (5.0-9.0) Ur Specific [place] 1.015 (1.005-1.025) Urine Protein Negative (Neg-Trace) mg/dL Urine Glucose (UA) Negative (Negative) mg/dL Urine Ketones Negative (Negative) mg/dL Urine Blood Negative (Negative) Urine Nitrite Negative (Negative) Ur Leukocyte Esterase Negative (Negative) COVID-19 (ROM[place]N) Negative (Negative) COVID-19 Clin Com See Note Influenza Type A (EVELINA) Negative (Negative) Influenza Type B (EVELINA) Negative (Negative) Influenza A & B Note See Note 01/06/25 01/06/25 Range/Units 00:01 02:14 WBC (4.8-10.8) X10*3/uL RBC (4.60-5.80) X10*6/uL Hgb (14.0-18.0) g/dl Hct (42.0-52.0) % MCV (80.0-98.0) fL MCH (27.0-33.0) pg MCHC (31.0-36.0) g/dl RDW (11.0-16.0) % Plt Count (160-400) X10*3/uL MPV (9.4-12.4) fL Immature Gran % (Auto) (0.0-0.4) % Neut % (Auto) (45-73) % Lymph % (Auto) (20-40) % [place] % (Auto) (2-11) % Eos % (Auto) (0-4) % Baso % (Auto) (0-2) % Lymph # (Auto) (1.2-4.9) X10*3/uL [place] # (Auto) (0.1-1.2) X10*3/uL Eos # (Auto) (0.0-0.4) X10*3/uL Baso # (Auto) (0.0-0.2) X10*3/uL Abs Immat Gran (auto) (0.00-0.03) X10*3/uL Absolute Neuts (auto) (2.0-8.3) x10*3/uL Absolute Nucleated RBC (0.0-0.012) X10*3/uL Nucleated RBC % (auto) (0.0-0.2) /100WBC PT (10.9-12.4) SEC Whole Blood PT (11.1-13.5) sec INR (0.9-1.1) Whole Blood INR (0.9-1.1) APTT (26.7-34.1) SEC Sodium (135-145) mmol/L Potassium (3.3-5.1) mmol/L Chloride (96-108) mmol/L Carbon Dioxide (22-29) mmol/L Anion Gap (12-20) BUN (9-16) mg/dL Creatinine (0.5-1.4) mg/dL Estim Creat Clear Calc Estimated GFR POC Glucose (60-115) mg/dL Random Glucose (60-115) mg/dL Lactic Acid (0.5-2.0) mmol/L Lactic Acid F/U @ 2Hr 3.8 H* (0.5-2.0) mmol/L Lactic Acid F/U @ 4Hr 3.8 H* (0.5-2.0) mmol/L Calcium (8.4-10.2) mg/dL Troponin I High Sens (<3.5-35.0) ng/L Triglycerides (<150) mg/dL Cholesterol (<200) mg/dL LDL Cholesterol, Calc (<100) mg/dL HDL Cholesterol (>40) mg/dL Urine Color Urine Appearance Urine pH (5.0-9.0) Ur Specific [place] (1.005-1.025) Urine Protein (Neg-Trace) mg/dL Urine Glucose (UA) (Negative) mg/dL Urine Ketones (Negative) mg/dL Urine Blood (Negative) Urine Nitrite (Negative) Ur Leukocyte Esterase (Negative) COVID-19 (ROM[place]N) (Negative) COVID-19 Clin Com Influenza Type A (EVELINA) (Negative) Influenza Type B (EVELINA) (Negative) Influenza A & B Note Independent Interpretation I performed an independent interpretation of an: CT Scan Radiology Impression Discussion of test interpretation with radiology: I have reviewed the radiologist's reading. Chronic Conditions Diabetes, intellectual disability, PE Critical Care Time Critical Care Time Critical Care Time: Yes Total Critical Care Time: 50 Attestation: Time is exclusive of separately billable procedures. Time includes: direct patient care, patient reassessment, coordination of patient care, interpretation of data (laboratory data, pulse oximetry, arterial blood gases and chest xrays), review of patient's medical records, medical consultation and documentation of patient care. Procedures excluded from critical care time: central intravenous line placement and electrocardiography. Discharge Plan Discharge Clinical Impression: Sepsis Patient Disposition: Admitted As Inpatient
[2025-01-05 21:45] VITALS: PULSE 106; TEMP 36.7; O2SAT 96
[2025-01-05 21:51] VITALS: BP 168/90; PULSE 102; RESP 17; TEMP 36.7
[2025-01-05 21:52] LABS: Appearance Urine Clear; Glucose Urine UA Negative (Negative); PH 5.5 (5.0-9.0); Specific Gravity - Urine 1.015 (1.005-1.025)
--- OUTSIDE RECORDS SUMMARY | 2025-01-05 21:53 | XMS_ITS | Clinical Summary ---
Author Organization [employer] Address [address] [place] [address] Care Team Providers Care Core Winder Name Role Phone Unavailable Primary Care Provider [...] Most Recently Relevant to Health Maintenance Insurance [facility] MEDICAID STAND ADULT
--- OUTSIDE RECORDS SUMMARY | 2025-01-05 21:53 | XMS_ITS | Encounter Summary ---
Author Organization [employer] [facility] Address [address] [place] [address] Care Team Providers Care Grain Merchandising Manager Name Role Phone Unavailable Primary Care [...]
[2025-01-05 22:21] LABS: COVID-19 Test Negative (Negative); IDNOW Serial# 152EDE1D; IDNOW Serial# 16C4AD1C; Influenza B2 Negative (Negative)
[2025-01-05 23:44] VITALS: BP 147/86; PULSE 90; PULSE 96; RESP 18; RESP 22; TEMP 37.1; O2SAT 96
[2025-01-05 23:49] LABS: Reflex Lactate? Lactic Acid Added
[2025-01-05 23:50] VITALS: BP 152/88; PULSE 88; RESP 14
[2025-01-06] VITALS (24 sets, daily range): BP systolic 133–190; BP diastolic 74–99; PULSE 69–101; RESP 12–18; TEMP 36.2–37.7; O2SAT 93–98; BMI 25.6
--- NOTE | 2025-01-06 | EEG_ITS ---
Roomed Performed:?402 Reason: unexplained lactic acid History: intellectual disability, schizoaffective disorder, PTSD, diabetes - Patient presented to ED with altered mental status. Stroke work up unremarkable. Medication: acetaminophen, albuterol, calcium, dextrose, glucose, levofloxacin, sodium chloride, vancomycin, magnesium, melatonin, ondansetron, senna Technical description ? Photic stimulation: completed Hyperventilation:?omitted Behavioral state: sleepy State of Consciousness: awake and sleep Skull defect: none Sedation: no Handedness:pt states both Duration of study:? 33 min 00 sec Decription: The waking background activity consists of a high voltage 9-10 hertz well- defined posterior alpha frequency that is seen symmetrically and attenuates well with eye opening while low-voltage fast frequencies predominate anteriorly. Photic stimulation is without activation. Hyperventilation was omitted. Brief periods of drowsiness characterized by attenuation of the alpha and diffuse theta. No focal, lateralizing or paroxysmal discharges seen. Impression: This awake and briefly drowsy EEG is within normal limits [facility]
[2025-01-06 00:24] LABS: ~Lactic Acid-LAB USE ONLY 3.8 mmol/L (0.5-2.0)
[2025-01-06] MEDS: vancomycin/NS 2,000 MG/500 ML PLAST..BAG 250 MG IV (00:59)
[2025-01-06] MEDS: Lactated Ringers 1,000 ML 999 ML IV (00:59)
[2025-01-06] MEDS: Lactated Ringers 1,000 ML 1100 ML IV (01:36)
[2025-01-06 02:04] LABS: Reflex Lactate? 2 Y
--- NOTE | 2025-01-06 02:28 | PM.IMHP ---
History of Present Illness Date of Service: 01/06/25 Attending physician on admission: Rachel Gomez Chief Complaint: AMS Pt is a 49 yo male living in senior living with PMH IDDM, Hypertriglyceridemia, Hypercholestremia, Saddle PE, schizoaffective disorder, PTSD, intellectual disability, UTI, diabetes insipidus presents to the emergency department with concerns for altered mental status. Patient currently lives in a senior living and patient's mother was notified by hide examiner of the senior living that patient was having difficulty with speaking and describing needs. This is not patient's usual baseline. The mother indicated that patient was at not acting at his usual self. Point of care glucose was checked at the home and it was 205mg/dL. On arrival to the ED patient was found to be slightly diaphoretic and altered with noted tachycardia and tachypnea. Max temp here 99.1. Initial workup in the ED noted a leukocytosis of 10.9, lactic acid of 4.7 and after fluid resuscitation at 30 cc/kilogram, lactate down to 3.8 x2. UA negative for UTI. CT of the chest noted for bilateral lower lobe ground-glass opacities. CT of the abdomen and pelvis were negative for any acute findings. Patient was started on vancomycin and Levaquin and is remarkably improved in regards to mentation and interaction. Patient can verbalize that he is feeling better. Patient has not required oxygen. Patient is being admitted for severe sepsis and pneumonia with noted improvement in presentation clinically since arrival and with treatment started. Review of Systems Review of Systems: Patient denies any chest pain, shortness of breath, abdominal pain. 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 Gout Hyperlipidemia Bipolar 1 disorder Diabetes insipidus High cholesterol Anxiety PTSD (post-traumatic stress disorder) Schizo affective schizophrenia Cognitive capacity: Awake and alert Functional capacity: independent ambulation Family History Mother Fibromyalgia Post traumatic stress disorder (PTSD) Anxiety Osteopenia High cholesterol Anemia Cerebellar ataxia Surgical History History of colonoscopy (~05/23/24) Hx of tooth extraction Hx of excision of mass Social History Household Members: Foster Family Household Members Other:: Jarvis and Amarilis valdes Housing: Other Housing Other:: assisted/Assisted living Do you presently have visiting nurse or other home services: Yes Unable to assess alcohol history related to: Unknown Alcohol intake: never Patient Tobacco Use Status: Never used Tobacco Smoked in Last 30 Days: No e-Cigarette/Vaping Use: Never Used Use of substances other than those prescribed or required for medical reasons: No Substance Use Type: Caffiene Advance Directives: Yes Advance Directives on File: Yes Advance Directives Date on File: 07/05/23 service: No Current occupational status: disabled Sexual orientation: Don't Know Cognitive needs: No Hearing needs: No Vision needs: No Ebola Risk: Travel/Contact With Anyone From Affected Area/s: No Has Patient Experienced Ebola Symptoms: No Meds Allergies Allergy/AdvReac Type Severity Reaction Status Date / Time mite-Dermatophagoides Allergy Unknown Itching Verified 01/05/25 19:33 farinae, mary (dust mite - [place]) Penicillins (PENICILLINS) Allergy Unknown Unknown Verified 01/05/25 19:32 pollen extracts Allergy Unknown Itching Verified 01/05/25 19:33 Home Medications ?Medication ?Instructions ?Recorded ?Confirmed ?Last Taken ?Type ascorbic acid (vitamin C) 500 mg 1 tab PO DAILY 03/02/20 01/01/25 08/03/24 History tablet (Vitamin C) cholecalciferol (vitamin D3) 25 1 cap PO DAILY 03/02/20 01/01/25 08/03/24 History mcg (1,000 unit) capsule (Vitamin D3) haloperidol 5 mg tablet 5 mg PO BEDTIME 03/02/20 01/01/25 08/03/24 History sertraline 100 mg tablet 1.5 tab PO DAILY 03/02/20 01/01/25 08/03/24 History simvastatin 80 mg tablet 1 tab PO DAILY 03/02/20 01/01/25 08/03/24 History clonazepam 1 mg tablet 0.5 mg PO BID 07/02/23 01/01/25 08/03/24 History benztropine 1 mg tablet 1 mg PO BID 08/04/24 01/01/25 08/03/24 History allopurinol 100 mg tablet 200 mg PO DAILY 12/28/24 01/01/25 Unknown History clonazepam 0.5 mg tablet 0.5 mg PO BID 12/28/24 01/01/25 Unknown History clozapine 50 mg tablet 50 mg PO DAILY 12/28/24 01/01/25 Unknown History insulin glargine 100 unit/mL (3 20 unit subcut QPM 01/01/25 01/01/25 Unknown History mL) subcutaneous pen (Basaglar KwikPen U-100 Insulin) Physical Exam Vital Signs and Narrative: Vital Signs: Last Vital Signs Temp 98.4 F 01/06/25 00:05 Pulse 101 H 01/06/25 00:07 Resp 18 01/06/25 00:05 BP 143/83 H 01/06/25 00:05 Pulse Ox 95 01/06/25 00:05 O2 Del Method Room Air 01/06/25 00:05 BMI result Body Mass Index 26.1 Awake and alert, interactive, able to follow command and protect airway Neuro: CN II-X11 intact, no deficits, visual acuity intact EYES: PERRLA, EOM intact, sclerae nonicteric, conjunctiva pink ENT: hearing intact, no issues with swallowing, uvula midline, lips moist, nares patent no epistaxis Cardiac: S1 S2 RRR, no murmur, no JVD, no edema in Lower ext Pulmonary: lungs diminished bilaterally Abdominal: BS active in all 4 quadrants, no guarding, tenderness, rebounding MSK: strength 4/5 upper and lower extremities : no CVA tenderness no bladder distension Extremities: no edema in lower extremities, PT and DP pulses palpable +2 Psych: mood stable, judgement and insight fair Skin: No new rashes or lesions Results Labs 01/05/25 19:44 01/05/25 19:44 Labs: Laboratory Results - last 24 hr 01/05/25 01/05/25 01/05/25 19:42 19:44 20:31 MCV 83.8 MCH 28.8 MCHC 34.4 RDW 13.7 Plt Count 245 MPV 10.3 Immature Gran % (Auto) 0.4 Neut % (Auto) 76.7 H Lymph % (Auto) 15.1 L [place] % (Auto) 4.0 Eos % (Auto) 3.2 Baso % (Auto) 0.6 Lymph # (Auto) 1.6 [place] # (Auto) 0.4 Eos # (Auto) 0.4 Baso # (Auto) 0.1 Abs Immat Gran (auto) 0.04 H Absolute Neuts (auto) 8.4 H Absolute Nucleated RBC 0.000 Nucleated RBC % (auto) 0.0 PT 10.6 L Whole Blood PT 11.9 INR 0.9 Whole Blood INR 1.0 APTT 31.8 Anion Gap 17 Estim Creat Clear Calc 68.8 Estimated GFR > 60 POC Glucose 206 H Random Glucose 207 H Lactic Acid Lactic Acid F/U @ 2Hr Calcium 9.6 Troponin I High Sens < 2.7 Triglycerides 327 H Cholesterol 210 H LDL Cholesterol, Calc 97 HDL Cholesterol 48 Urine Color Urine Appearance Urine pH Ur Specific [place] Urine Protein Urine Glucose (UA) Urine Ketones Urine Blood Urine Nitrite Ur Leukocyte Esterase COVID-19 (ROMÁN) COVID-19 Clin Com Influenza Type A (EVELINA) Influenza Type B (EVELINA) Influenza A & B Note 01/05/25 01/05/25 01/05/25 21:37 21:39 21:40 MCV MCH MCHC RDW Plt Count MPV Immature Gran % (Auto) Neut % (Auto) Lymph % (Auto) [place] % (Auto) Eos % (Auto) Baso % (Auto) Lymph # (Auto) [place] # (Auto) Eos # (Auto) Baso # (Auto) Abs Immat Gran (auto) Absolute Neuts (auto) Absolute Nucleated RBC Nucleated RBC % (auto) PT Whole Blood PT INR Whole Blood INR APTT Anion Gap Estim Creat Clear Calc Estimated GFR POC Glucose Random Glucose Lactic Acid 4.7 H* Lactic Acid F/U @ 2Hr Calcium Troponin I High Sens Triglycerides Cholesterol LDL Cholesterol, Calc HDL Cholesterol Urine Color Yellow Urine Appearance Clear Urine pH 5.5 Ur Specific [place] 1.015 Urine Protein Negative Urine Glucose (UA) Negative Urine Ketones Negative Urine Blood Negative Urine Nitrite Negative Ur Leukocyte Esterase Negative COVID-19 (ROMÁN) Negative COVID-19 Clin Com See Note Influenza Type A (EVELINA) Negative Influenza Type B (EVELINA) Negative Influenza A & B Note See Note 01/06/25 00:01 MCV MCH MCHC RDW Plt Count MPV Immature Gran % (Auto) Neut % (Auto) Lymph % (Auto) [place] % (Auto) Eos % (Auto) Baso % (Auto) Lymph # (Auto) [place] # (Auto) Eos # (Auto) Baso # (Auto) Abs Immat Gran (auto) Absolute Neuts (auto) Absolute Nucleated RBC Nucleated RBC % (auto) PT Whole Blood PT INR Whole Blood INR APTT Anion Gap Estim Creat Clear Calc Estimated GFR POC Glucose Random Glucose Lactic Acid Lactic Acid F/U @ 2Hr 3.8 H* Calcium Troponin I High Sens Triglycerides Cholesterol LDL Cholesterol, Calc HDL Cholesterol Urine Color Urine Appearance Urine pH Ur Specific [place] Urine Protein Urine Glucose (UA) Urine Ketones Urine Blood Urine Nitrite Ur Leukocyte Esterase COVID-19 (ROMÁN) COVID-19 Clin Com Influenza Type A (EVELINA) Influenza Type B (EVELINA) Influenza A & B Note ECG Attestation: I personally reviewed and interpreted this ECG as follows: (Sinus tachycardia QTC 456) Prior ECG tracings: available for review Imaging Radiologist's Impressions: CT CHEST IMPRESSION: 1. Bilateral lower lobe ground-glass opacities may represent edema versus atypical pneumonia. 2. Small prevascular mediastinal nodes nonspecific and could be reactive. CT ABD Findings: No consolidation or effusion. The gallbladder is unremarkable. No biliary ductal dilatation. The liver, spleen, pancreas and adrenal glands are unremarkable. Enhancement of bilateral kidneys with no ureteral stones and no hydronephrosis or hydroureter. Lobulated bilateral kidneys. No bowel obstruction, pneumoperitoneum, or pneumatosis. No free fluid or loculated fluid collection. Bilateral fat containing inguinal hernias. Pelvic contents unremarkable. Normal appendix. No aneurysm of the abdominal aorta. No acute fracture. Mild levocurvature of lumbar spine either positional or scoliosis. IMPRESSION: No acute findings. Assessment and Plan (1) Severe sepsis: Status: Acute (2) Pneumonia: Qualifiers: Laterality: left Lung location: lower lobe of lung Pneumonia type: due to unspecified organism Qualified Code(s): J18.9 - Pneumonia, unspecified organism Status: Acute Plan Pt is a 49 yo male living in senior living with PMH IDDM, Hypertriglyceridemia, Hypercholestremia, gout, Saddle PE, schizoaffective disorder, PTSD, intellectual disability, UTI, diabetes insipidus presents to the emergency department with concerns for altered mental status. Patient currently lives in a senior living and patient's mother was notified by hide examiner of the senior living that patient was having difficulty with speaking and describing needs. This is not patient's usual baseline. The mother indicated that patient was at not acting at his usual self. Point of care glucose was checked at the home and it was 205mg/dL. Patient found to have pneumonia bilaterally and after treatment was started for sepsis and infection, patient's altered mental status appears to be resolved and patient is currently at baseline interactive and comfortable. Severe Sepsis/ Acute Lactic Acidosis Patient is started on vancomycin and Levaquin in the ED, antibiotics continue - request pharmacy for dosing of vanco Fluid resuscitation at 30 mL/kilogram completed, lactate 4.7-3.8 - 3.8... IV fluids continue was 0.9 normal saline 1 L bolus and then hourly at 100 mL Continue to trend lactic acid until normalized Blood cultures pending UA negative for UTI Patient has not required oxygen since arrival Atypical PNA suspected Patient continues on vancomycin and Levaquin as above No oxygen requirements at this time Duo nebs p.r.n. All viral studies negative for COVID flu and RSV: No indication for methylprednisolone or Decadron Aspiration precautions We will have speech therapy do a swallow eval in the a.m. to ensure no risk for aspiration Incentive spirometer ordered Supportive care AMS Resolved since arrival, patient appears to be at his baseline History of saddle PE Patient will continue apixaban 2.5 mg b.i.d. No hypoxia since arrival IDDM Sliding scale insulin Diabetic diet Pt has CGM Scizoaffective D/O/ PTSD One-to-one not currently indicated Once med rec completed, Continue clozapine, no evidence of agranulocytosis, clonazepam, Haldol, sertraline QTC on EKG is 456 Hyperlipidemia/ hypertriglyceridemia Patient continues on simvastatin LFTs pending DVT prophylaxis: Apixaban once the med rec is completed Med rec pending Full Code status Quality Stroke Does the patient have a stroke diagnosis?: No Reason for No Anti-thrombotic by Day Two: N/A - Med Ordered VTE Prior VTE?: No VTE Risk Level:: Medical - moderate - high VTE Device Contraindication: N/A - Device Ordered VTE Drug Contraindication: N/A - Med Ordered
[2025-01-06 02:42] LABS: ~Lactic Acid-LAB USE ONLY 3.8 mmol/L (0.5-2.0)
[2025-01-06 05:06] LABS: MANUAL DIFF FLAG NO
[2025-01-06 05:09] LABS: Hematocrit 30.1 % (42.0-52.0); Hemoglobin 9.8 g/dl (14.0-18.0); Imm Gran Abs Auto 0.05 X10*3/uL (0.00-0.03); Imm Gran Pct Auto 0.6 % (0.0-0.4); Lymphocytes Absolute Auto 2.1 X10*3/uL (1.2-4.9); Mean Corpuscular HGB Conc 32.6 g/dl (31.0-36.0); Mean Corpuscular Hemoglobin 27.9 pg (27.0-33.0); Mean Corpuscular Volume 85.8 fL (80.0-98.0); NRBC Abs Auto 0.000 X10*3/uL (0.0-0.012); NRBC Pct Auto 0.0 /100WBC (0.0-0.2); Platelet Count 190 X10*3/uL (160-400); Red Blood Count 3.51 X10*6/uL (4.60-5.80); White Blood Count 8.1 X10*3/uL (4.8-10.8)
--- NOTE | 2025-01-06 05:10 | PC.NURSE ---
late entry. PT has been OOB roughly 4-5 times an hour over the course of his stay in ED24. PT educated multiple times on using call the call key when he returns to ensure he is back on monitor and fluids are infusing appropriately.
--- NOTE | 2025-01-06 05:15 | PC.NURSE ---
notified provider of PTs current P and his inability to rest in bed for longer than a few minutes. PT attempted to use urinal multiple times at initially however it was not successful. awaiting new orders Educated PT on bedrest orders.
[2025-01-06 05:39] LABS: Alanine Aminotransferase 28 U/L (0-40); Albumin Level 2.9 g/dL (3.5-5.0); Alkaline Phosphatase 69 U/L (39-117); Anion Gap 12 (12-20); Aspartate Amino Transferase 18 U/L (5-37); Blood Urea Nitrogen 10 mg/dL (9-16); Calcium 6.8 mg/dL (8.4-10.2); Carbon Dioxide 19 mmol/L (22-29); Chloride 119 mmol/L (96-108); Creatinine Clr Calc Pharmacy 105.4; Estimated Glomerular Filt Rate > 60; Potassium 2.9 mmol/L (3.3-5.1); Sodium 147 mmol/L (135-145); Total Protein 5.1 g/dL (6.5-8.0)
[2025-01-06] MEDS: Potassium Chloride ER 20 MEQ TAB.ER.PRT 40 MEQ PO ×2 (06:17→08:09)
--- NOTE | 2025-01-06 06:50 | PHA.PROG ---
Admission Date/Time: January 06, 2025 02:25 Indication: RESPIRATORY Weight in k.6 kg Adjusted body weight in K.9 [place] body weight in K.1 Obesity Dosing Indication % IBW 26.1: Serum Creatinine - Last 168 Hours 01/05/25 01/06/25 19:44 04:12 Creatinine 1.24 0.81 Estimated CrCl and GFR - Last 168 Hours 01/05/25 01/06/25 19:44 04:12 Estim Creat Clear Calc 68.8 105.4 Estimated GFR > 60 > 60 Vancomycin Loading Dose: 2000 MG Current Vancomycin Dosing Regimen: 1250 MG Q12 Vancomycin Monitoring using AUC goal of 400 - 600 range with trough as surrogate marker: 552/16.6 Date and Time for next Vancomycin Level to be drawn: 01/07 @0900 Pharmacist Comments on Vancomycin Plan: INDICATION ON CONSULT IS RESPIRATORY BUT PT ALSO ADMITTED FOR SEPSIS. CHOSE MORE AGGRESSIVE TREATMENT REGIMEN WITH HIGHER POTENTIAL TROUGH DUE TO THIS. Vancomycin dosing will take advantage of [employer] as a clinical decision support tool that uses Bayesian modeling to calculate individual patient's pharmacokinetic parameters and forecast the patient's drug concentration time course with the target goal AUC 24 range of 400 - 600 mg/L/hr.
--- NOTE | 2025-01-06 07:21 | HO.PM.IMPN ---
Subjective Subjective Date of Service: 01/06/25 Interval History: This is my 1st interaction with the patient Patient does not appear to be in severe sepsis We will continue to trend lactic acid We will deescalate antibiotic to oral as the patient appears to be taught rating p.o. intake Unclear etiology of decompensation ? Poor oral intake leading to hyperkalemia and electrolyte disturbances which seems to have responded to aggressive hydration rather than antibiotics in my clinical judgment Although there is a significant drop in hemoglobin this is likely from hemoconcentration given no appears signs of bleed and Review of Systems Review of Systems: Yes Unobtainable due to mental status Physical Exam Exam: Exam: General: AOx0, unable to express given baseline medical/psychological Resp: CTA bilaterally CVS: S1, S2, RRR GI: +BS, NT, no distention Skin: Warm, dry Limited neurological and psychological condition given baseline condition Vital Signs: Vital Signs: Last Vital Signs Temp 98.4 F 01/06/25 00:05 Pulse 82 01/06/25 06:18 Resp 14 01/06/25 06:18 BP 162/82 H 01/06/25 06:18 Pulse Ox 96 01/06/25 05:17 O2 Del Method Room Air 01/06/25 04:50 BMI result Body Mass Index 26.1 Objective Data Active Medications Acetaminophen (Acetaminophen 325 Mg Tablet) 650 mg PO Q6H PRN PRN Reason: Pain, Mild 1-3,fever,headache Albuterol/Ipratropium (Albuterol/Iprat 2.5/0.5mg 3 Ml Ampul.Neb) 3 ml INHALE Q4H PRN PRN Reason: Shortness of Breath/Wheezing Calcium Carbonate (Calcium Carbonate 750 Mg Tab.Chew) 750 mg PO Q4H PRN PRN Reason: Heartburn Dextrose (Dextrose 50 % 25 Gm/50 Ml Syringe) 25 gm IVPUSH Q15M PRN; Protocol PRN Reason: per Hypoglycemia Standing Ord. Glucose (Glucose Gel 15 Gm Gel..Gram.) 15 gm PO Q15M PRN; Protocol PRN Reason: per Hypoglycemia Standing Ord. Levofloxacin (Levaquin) 750 mg in 150 mls @ 100 mls/hr IV Q24H [facility] Sodium Chloride (Ns) 1,000 mls @ 100 mls/hr IVCONT .Q10H [facility] Last Admin: 01/06/25 03:58 Dose: 100 mls/hr Documented By: GENNY Vancomycin HCl 1,250 mg/ (Sodium Chloride) 250 mls @ 166.667 mls/hr IV Q12H [facility] Insulin Human Lispro (Insulin Lispro 100 Unit/Ml 3 Ml Vial) 0 unit SUBCUT QIDACHS [facility]; Protocol Magnesium Hydroxide (Milk Of Magnesia 30 Ml Oral.Susp) 30 ml PO DAILY PRN PRN Reason: Constipation Melatonin (Melatonin 3 Mg Tablet) 6 mg PO BEDTIME PRN PRN Reason: Insomnia Ondansetron HCl (Ondansetron Hcl 4 Mg/2 Ml Vial) 4 mg IVPUSH Q8H PRN PRN Reason: Nausea and Vomiting Pharmacy Consult (Consult Rx Vancomycin Dosing) 1 each MISCELLANE DAILY PRN PRN Reason: Consult order Polyethylene Glycol (Polyethylene Glycol 3350 17 Gm Powd.Pack) 17 gm PO DAILY PRN PRN Reason: Constipation Senna (Sennosides 8.6 Mg Tablet) 17.2 mg PO BEDTIME [facility] Sodium Chloride (0.9 % Sodium Chloride Flush 3 Ml Syringe) 3 ml IVFLUSH QSHIFT [facility] Labs 01/06/25 04:12 01/06/25 04:12 Labs: Laboratory Results - last 24 hr 01/05/25 01/05/25 01/05/25 19:42 19:44 20:31 MCV 83.8 MCH 28.8 MCHC 34.4 RDW 13.7 Plt Count 245 MPV 10.3 Immature Gran % (Auto) 0.4 Neut % (Auto) 76.7 H Lymph % (Auto) 15.1 L [place] % (Auto) 4.0 Eos % (Auto) 3.2 Baso % (Auto) 0.6 Lymph # (Auto) 1.6 Baldwin # (Auto) 0.4 Eos # (Auto) 0.4 Baso # (Auto) 0.1 Abs Immat Gran (auto) 0.04 H Absolute Neuts (auto) 8.4 H Absolute Nucleated RBC 0.000 Nucleated RBC % (auto) 0.0 PT 10.6 L Whole Blood PT 11.9 INR 0.9 Whole Blood INR 1.0 APTT 31.8 Anion Gap 17 Estim Creat Clear Calc 68.8 Estimated GFR > 60 POC Glucose 206 H Random Glucose 207 H Lactic Acid Lactic Acid F/U @ 2Hr Lactic Acid F/U @ 4Hr Calcium 9.6 Total Bilirubin AST ALT Alkaline Phosphatase Troponin I High Sens < 2.7 Total Protein Albumin Triglycerides 327 H Cholesterol 210 H LDL Cholesterol, Calc 97 HDL Cholesterol 48 Urine Color Urine Appearance Urine pH Ur Specific [place] Urine Protein Urine Glucose (UA) Urine Ketones Urine Blood Urine Nitrite Ur Leukocyte Esterase COVID-19 ([facility]) COVID-19 Clin Com Influenza Type A (EVELINA) Influenza Type B (EVELINA) Influenza A & B Note 01/05/25 01/05/25 01/05/25 21:37 21:39 21:40 MCV MCH MCHC RDW Plt Count MPV Immature Gran % (Auto) Neut % (Auto) Lymph % (Auto) Baldwin % (Auto) Eos % (Auto) Baso % (Auto) Lymph # (Auto) Baldwin # (Auto) Eos # (Auto) Baso # (Auto) Abs Immat Gran (auto) Absolute Neuts (auto) Absolute Nucleated RBC Nucleated RBC % (auto) PT Whole Blood PT INR Whole Blood INR APTT Anion Gap Estim Creat Clear Calc Estimated GFR POC Glucose Random Glucose Lactic Acid 4.7 H* Lactic Acid F/U @ 2Hr Lactic Acid F/U @ 4Hr Calcium Total Bilirubin AST ALT Alkaline Phosphatase Troponin I High Sens Total Protein Albumin Triglycerides Cholesterol LDL Cholesterol, Calc HDL Cholesterol Urine Color Yellow Urine Appearance Clear Urine pH 5.5 Ur Specific [place] 1.015 Urine Protein Negative Urine Glucose (UA) Negative Urine Ketones Negative Urine Blood Negative Urine Nitrite Negative Ur Leukocyte Esterase Negative COVID-19 ([facility]) Negative COVID-19 Clin Com See Note Influenza Type A (EVELINA) Negative Influenza Type B (EVELINA) Negative Influenza A & B Note See Note 01/06/25 01/06/25 01/06/25 00:01 02:14 04:12 MCV 85.8 MCH 27.9 MCHC 32.6 RDW 13.9 Plt Count 190 MPV 10.4 Immature Gran % (Auto) 0.6 H Neut % (Auto) 64.1 Lymph % (Auto) 26.2 Baldwin % (Auto) 5.8 Eos % (Auto) 2.8 Baso % (Auto) 0.5 Lymph # (Auto) 2.1 Baldwin # (Auto) 0.5 Eos # (Auto) 0.2 Baso # (Auto) 0.0 Abs Immat Gran (auto) 0.05 H Absolute Neuts (auto) 5.2 Absolute Nucleated RBC 0.000 Nucleated RBC % (auto) 0.0 PT Whole Blood PT INR Whole Blood INR APTT Anion Gap 12 Estim Creat Clear Calc 105.4 Estimated GFR > 60 POC Glucose Random Glucose 110 Lactic Acid Lactic Acid F/U @ 2Hr 3.8 H* Lactic Acid F/U @ 4Hr 3.8 H* Calcium 6.8 L D Total Bilirubin 0.1 AST 18 ALT 28 Alkaline Phosphatase 69 Troponin I High Sens Total Protein 5.1 L Albumin 2.9 L Triglycerides Cholesterol LDL Cholesterol, Calc HDL Cholesterol Urine Color Urine Appearance Urine pH Ur Specific [place] Urine Protein Urine Glucose (UA) Urine Ketones Urine Blood Urine Nitrite Ur Leukocyte Esterase COVID-19 ([facility]) COVID-19 Clin Com Influenza Type A (EVELINA) Influenza Type B (EVELINA) Influenza A & B Note Assessment and Plan (1) Acute metabolic encephalopathy: Status: Acute Plan 49-year-old male with history of intellectual disability, schizoaffective disorder, PTSD, T2DM, PE on apixaban, diabetes insipidus who presented to the ED with acute onset altered mental status. Thus far workup is unremarkable and noncontributory. Patient's acute encephalopathy could likely be in the setting of baseline psych conditions versus electrolyte abnormalities PTSD Unexplained elevated lactic acid Stroke workup negative Sepsis workup unremarkable We will maintain fall and aspiration and seizure precautions Schizoaffective disorder Patient does not have any clear signs or symptoms of seizures or a history of head CPK normal I do not believe in my clinical judgment he has overt signs of sepsis or severe sepsis however we will continue antibiotics by 1-2 more days Elevated lactic acid-we will treat with normal saline and trend venous lactate Psych consulted Resumed his home meds PE on apixaban-continue . DVT prophylaxis with home Eliquis This note is constructed using voice recognition software. While every effort has been made to ensure accuracy, regional tanker truck driver errors may have been included. Quality Stroke Does the patient have a stroke diagnosis?: No Reason for No Anti-thrombotic by Day Two: N/A - Med Ordered VTE Prior VTE?: No VTE Risk Level:: Medical - moderate - high VTE Device Contraindication: N/A - Device Ordered VTE Drug Contraindication: N/A - Med Ordered
[2025-01-06] MEDS: Potassium Chloride/H20 10 MEQ/100 ML PIGGYBACK 100 MEQ IV ×4 (08:10→14:51)
[2025-01-06] MEDS: 0.9 % Sodium Chloride Flush 3 ML SYRINGE IVFLUSH ×2 (08:15→23:45)
--- NOTE | 2025-01-06 09:18 | MHC.CM.PN ---
CM SPOKE TO PTS GUARDIAN/HCP/MOTHER, SUSANNE [phone] SHE REPORTS PT LIVES IN A [facility] HE USES NO DME AND HAS [facility] FOR MED ADMINISTRATION DAILY HCP AND GUARDIANSHIP ON FILE PCP WAS DR RYAN, HE HAS A NEW PT APPT SCHEDULED WITH [facility] ON 02/11/25 IMM DELIVERED DCP: RETURN TO [facility] MOTHER WILL LIKELY TRANSPORT
--- NOTE | 2025-01-06 10:54 | PHA.MEDREC ---
Addendum entered by Nicolas Hung [facility] 01/06/25 15:28: Per patient's mother, he last took his PM clozapine dose on 01/04/25 and his AM clozapine dose on 01/05/25. Original Note: Pharmacy Consult ? Medication Reconciliation Pharmacy has completed the medication reconciliation. Received med list from patient's mom, used that and pharmacy claims to confirm
--- NOTE | 2025-01-06 11:39 | MHC.SL.SWA ---
Speech Pathologist Impression: Risk of Aspiration Due to: Dysphasia Diet Status: Liquid Consistency and Strategies for Safe Swallow: Liquid Intake Recommendation: Thin Liquid Intake Strategies: Solid Food Consistency: Dietary Recommendations: Regular Additional Modifications to Solid Foods: Oral Medication Intake: Whole with Liquid Please contact the pharmacy regarding appropriate crushable or liquid drug formulations that are available whenever modified delivery is recommended. Compensatory Strategies and Precautions to be Taken for Safe Swallow: Supervision While Eating and Drinking for Safe Swallow: None Needed Foods to Avoid: Swallowing Recommended Treatments: Recommendation for Speech: NA:Typical Evaluation Comment: Patient presented with all aspects of swallow WFL. Recommend continue on Regular Diet with Thin liquids, pills whole with liquid. No further REVIEW ENGINEER service indicated will d/c order. Frequency/Duration: Date Range for Service Req: Timeline to reassess: Customer Service Assistant Clinican/Clinical Fellow: No Supervisory Statement: I have reviewed and agree with the student/clinical fellow's documentation: N/A Speech Language Pathologist: Latia Monzon M.A., CCC-REVIEW ENGINEER
[2025-01-06 13:25] LABS: Glucose, Whole Blood 161 mg/dL (60-115)
--- NOTE | 2025-01-06 14:55 | PC.NURSE ---
pt reports that he is hearing voices and feels anxious. med rec is completed but not continued by hospitalist, hospitalist informed and awaiting new orders, pt reports feeling warm, oral temp 99.9 and apap given, pt calm and pleasant
[2025-01-06 17:21] LABS: Reflex Lactate? Lactic Acid Added
[2025-01-06 17:47] LABS: Glucose, Whole Blood 143 mg/dL (60-115)
[2025-01-06 18:14] LABS: ~Lactic Acid-LAB USE ONLY 1.8 mmol/L (0.5-2.0)
[2025-01-06 18:19] LABS: Alanine Aminotransferase 45 U/L (0-40); Albumin Level 4.5 g/dL (3.5-5.0); Alkaline Phosphatase 99 U/L (39-117); Anion Gap 13 (12-20); Aspartate Amino Transferase 28 U/L (5-37); Blood Urea Nitrogen 11 mg/dL (9-16); Calcium 9.9 mg/dL (8.4-10.2); Carbon Dioxide 25 mmol/L (22-29); Chloride 111 mmol/L (96-108); Creatinine Clr Calc Pharmacy 69.9; Estimated Glomerular Filt Rate > 60; Potassium 4.2 mmol/L (3.3-5.1); Sodium 145 mmol/L (135-145); Total Protein 7.6 g/dL (6.5-8.0)
[2025-01-06 18:51] LABS: Magnesium 1.9 mg/dL (1.6-2.6)
[2025-01-06 19:14] LABS: Thyroid Stimulating Hormone 1.59 uIU/mL (0.32-4.0)
[2025-01-06] MEDS: Thiamine HCL 100 MG in 0.9 % Sodium Chloride 100 ML 202 MG IV (19:42)
[2025-01-06 21:12] LABS: Glucose, Whole Blood 169 mg/dL (60-115)
[2025-01-07] VITALS (7 sets, daily range): BP systolic 135–155; BP diastolic 83–99; PULSE 80–103; RESP 16–20; TEMP 36.2–37.3; O2SAT 95–97
[2025-01-07 06:46] LABS: Creatinine Clr Calc Pharmacy 70.5; Estimated Glomerular Filt Rate > 60; Magnesium 1.8 mg/dL (1.6-2.6)
[2025-01-07 07:57] LABS: Glucose, Whole Blood 148 mg/dL (60-115)
--- NOTE | 2025-01-07 07:57 | HO.PM.IMPN ---
Subjective Subjective Date of Service: 01/07/25 Interval History: Patient continues to be hemodynamically stable, infectious etiology is less likely Review of Systems Review of Systems: Yes all other systems are reviewed and are negative Physical Exam Exam: Exam: General: AOx0, unable to express given baseline medical/psychological Resp: CTA bilaterally CVS: S1, S2, RRR GI: +BS, NT, no distention Skin: Warm, dry Limited neurological and psychological condition given baseline condition Vital Signs: Vital Signs: Last Vital Signs Temp 99.2 F 01/07/25 07:13 Pulse 94 01/07/25 07:13 Resp 18 01/07/25 07:13 BP 142/83 H 01/07/25 07:13 Pulse Ox 96 01/07/25 07:13 O2 Del Method Room Air 01/07/25 07:13 BMI result Body Mass Index 25.6 Objective Data Active Medications Acetaminophen (Acetaminophen 325 Mg Tablet) 650 mg PO Q6H PRN PRN Reason: Pain, Mild 1-3,fever,headache Last Admin: 01/06/25 14:52 Dose: 650 mg Documented By: ROSI Albuterol/Ipratropium (Albuterol/Iprat 2.5/0.5mg 3 Ml Ampul.Neb) 3 ml INHALE Q4H PRN PRN Reason: Shortness of Breath/Wheezing Allopurinol (Allopurinol 100 Mg Tablet) 200 mg PO DAILY [facility] Last Admin: 01/06/25 15:51 Dose: 200 mg Documented By: ROSI Apixaban (Apixaban 2.5 Mg Tablet) 2.5 mg PO BID [facility] Last Admin: 01/06/25 19:42 Dose: 2.5 mg Documented By: SHAYY Ascorbic Acid (Ascorbic Acid 500 Mg Tablet) 500 mg PO DAILY [facility] Last Admin: 01/06/25 15:51 Dose: 500 mg Documented By: ROSI Atorvastatin Calcium (Atorvastatin Calcium 40 Mg Tablet) 40 mg PO DAILY [facility] Last Admin: 01/06/25 15:51 Dose: 40 mg Documented By: ROSI Benztropine Mesylate (Benztropine Mesylate 1 Mg Tablet) 1 mg PO BID [facility] Last Admin: 01/06/25 19:42 Dose: 1 mg Documented By: SHAYY Calcium Carbonate (Calcium Carbonate 750 Mg Tab.Chew) 750 mg PO Q4H PRN PRN Reason: Heartburn Clonazepam (Clonazepam 0.5 Mg Tablet) 0.5 mg PO BID [facility] Last Admin: 01/06/25 19:42 Dose: 0.5 mg Documented By: SHAYY Clonazepam (Clonazepam 0.5 Mg Tablet) 0.5 mg PO DAILY PRN PRN Reason: Anxiety Clozapine (Clozapine 25 Mg Tablet) 50 mg PO DAILY [facility] Last Admin: 01/06/25 15:51 Dose: 50 mg Documented By: ROSI Clozapine (Clozapine 100 Mg Tablet) 300 mg PO BEDTIME [facility] Last Admin: 01/06/25 19:41 Dose: 300 mg Documented By: SHAYY Dextrose (Dextrose 50 % 25 Gm/50 Ml Syringe) 25 gm IVPUSH Q15M PRN; Protocol PRN Reason: per Hypoglycemia Standing Ord. Fluticasone Propionate (Fluticasone Propionate Nasal 16 Gm [place]) 1 spray NOSTRIL-B BID [facility] Last Admin: 01/06/25 19:42 Dose: 1 spray Documented By: SHAYY Glucose (Glucose Gel 15 Gm Gel..Gram.) 15 gm PO Q15M PRN; Protocol PRN Reason: per Hypoglycemia Standing Ord. Haloperidol (Haloperidol 5 Mg Tablet) 5 mg PO BEDTIME [facility] Last Admin: 01/06/25 19:42 Dose: 5 mg Documented By: SHAYY Sodium Chloride (Ns) 1,000 mls @ 100 mls/hr IVCONT .Q10H [facility] Last Admin: 01/06/25 23:44 Dose: 100 mls/hr Documented By: LIOR Influenza Virus Vaccine (Flu Vacc [id number](6mo Up)/Pf 0.5 Ml Syringe) 0.5 ml IM .ONCE ONE Stop: 01/07/25 09:01 Insulin Human Lispro (Insulin Lispro 100 Unit/Ml 3 Ml Vial) 0 unit SUBCUT QIDACHS [facility]; Protocol Last Admin: 01/06/25 22:10 Dose: 2 unit Documented By: SHAYY Levofloxacin (Levofloxacin 750 Mg Tablet) 750 mg PO Q24H [facility] Last Admin: 01/06/25 16:20 Dose: 750 mg Documented By: ABILIO Magnesium Hydroxide (Milk Of Magnesia 30 Ml Oral.Susp) 30 ml PO DAILY PRN PRN Reason: Constipation Melatonin (Melatonin 3 Mg Tablet) 6 mg PO BEDTIME PRN PRN Reason: Insomnia Multivitamins/Vitamin C (Multivitamin Tablet) 1 tab PO DAILY [facility] Last Admin: 01/06/25 15:51 Dose: 1 tab Documented By: ROSI Ondansetron HCl (Ondansetron Hcl 4 Mg/2 Ml Vial) 4 mg IVPUSH Q8H PRN PRN Reason: Nausea and Vomiting Polyethylene Glycol (Polyethylene Glycol 3350 17 Gm Powd.Pack) 17 gm PO DAILY PRN PRN Reason: Constipation Senna (Sennosides 8.6 Mg Tablet) 17.2 mg PO BEDTIME [facility] Last Admin: 01/06/25 19:41 Dose: 17.2 mg Documented By: SHAYY Sertraline HCl (Sertraline Hcl 50 Mg Tablet) 150 mg PO DAILY [facility] Last Admin: 01/06/25 15:51 Dose: 150 mg Documented By: ROSI Sodium Chloride (0.9 % Sodium Chloride Flush 3 Ml Syringe) 3 ml IVFLUSH QSHIFT [facility] Last Admin: 01/06/25 23:45 Dose: 3 ml Documented By: LIOR Vitamin D (Cholecalciferol (Vitamin D3) 25 Mcg Tablet) 25 mcg PO DAILY [facility] Last Admin: 01/06/25 15:52 Dose: 25 mcg Documented By: ROSI Labs 01/06/25 04:12 01/07/25 06:11 Labs: Laboratory Results - last 24 hr 01/06/25 01/06/25 01/06/25 04:12 13:21 15:16 Anion Gap Estim Creat Clear Calc Estimated GFR POC Glucose 161 H Random Glucose Lactic Acid 3.2 H* Lactic Acid F/U @ 2Hr Calcium Magnesium Total Bilirubin AST ALT Alkaline Phosphatase Total Creatine Kinase 101 Total Protein Albumin TSH 01/06/25 01/06/25 01/06/25 17:30 17:45 20:56 Anion Gap 13 Estim Creat Clear Calc 69.9 Estimated GFR > 60 POC Glucose 143 H 169 H Random Glucose 125 H Lactic Acid Lactic Acid F/U @ 2Hr 1.8 Calcium 9.9 D Magnesium 1.9 Total Bilirubin 0.2 AST 28 ALT 45 H Alkaline Phosphatase 99 Total Creatine Kinase Total Protein 7.6 Albumin 4.5 TSH 1.59 01/07/25 01/07/25 01/07/25 03:10 06:11 07:13 Anion Gap Estim Creat Clear Calc 70.5 Estimated GFR > 60 POC Glucose 148 H Random Glucose Lactic Acid 0.8 0.9 Lactic Acid F/U @ 2Hr Calcium Magnesium 1.8 Total Bilirubin AST ALT Alkaline Phosphatase Total Creatine Kinase Total Protein Albumin TSH Microbiology Microbiology Results: Microbiology 01/05/25 21:43 Blood Culture - Preliminary Blood - Venous No growth after 24 hours. 01/05/25 21:37 Blood Culture - Preliminary Blood - Venous No growth after 24 hours. Assessment and Plan (1) Acute metabolic encephalopathy: Status: Acute Plan 49-year-old male with history of intellectual disability, schizoaffective disorder, PTSD, T2DM, PE on apixaban, diabetes insipidus who presented to the ED with acute onset altered mental status. Thus far workup is unremarkable and noncontributory. Patient's acute encephalopathy could likely be in the setting of baseline psych conditions versus electrolyte abnormalities , less likely secondary to sepsis Patient has extensive sepsis and stroke workup thus far unremarkable, patient appears to be responding to aggressive IV fluid hydration which leads to as believing that it could have been in the setting of poor oral intake. Reached up psych team, to advise on any medication changes. We will maintain fall and aspiration and seizure precautions Schizoaffective disorder PTSD Patient does not have any clear signs or symptoms of seizures or stroke or a history of head CPK normal Given risk of C diff and drug resistance, and normalization of lactic acid with fluid hydration, we will discontinue all antibiotics Psych consulted Resumed his home meds Unclear baseline, we will continue his home psych meds for now, Lactic acidemia-s/p normalized post aggressive IV resuscitation PE on apixaban-continue .DVT prophylaxis with home Eliquis This note is constructed using voice recognition software. While every effort has been made to ensure accuracy, assisted sales representative errors may have been included. Quality Stroke Does the patient have a stroke diagnosis?: No Reason for No Anti-thrombotic by Day Two: N/A - Med Ordered VTE Prior VTE?: No VTE Risk Level:: Medical - moderate - high VTE Device Contraindication: N/A - Device Ordered VTE Drug Contraindication: N/A - Med Ordered
[2025-01-07] MEDS: 0.9 % Sodium Chloride Flush 3 ML SYRINGE IVFLUSH (10:55)
[2025-01-07 12:18] LABS: Glucose, Whole Blood 280 mg/dL (60-115)
--- NOTE | 2025-01-07 15:27 | MHC.CM.PN ---
Per ROUNDS discussion, Patient requires a Psych Eval to assist with disposition. CM will continue to follow.
[2025-01-07 17:02] LABS: Glucose, Whole Blood 139 mg/dL (60-115)
[2025-01-07 21:14] LABS: Glucose, Whole Blood 157 mg/dL (60-115)
[2025-01-08 03:48] VITALS: BP 130/94; PULSE 79; RESP 16; TEMP 36.7; O2SAT 94
[2025-01-08 07:31] VITALS: BP 149/95; PULSE 86; RESP 16; TEMP 36.3; O2SAT 95
[2025-01-08 07:47] LABS: Glucose, Whole Blood 170 mg/dL (60-115)
--- NOTE | 2025-01-08 07:59 | HO.PM.IMPN ---
Subjective Subjective Date of Service: 01/08/25 Interval History: Psych saw the patient and cleared him Patient medically optimized-we will likely go back to his assisted Patient continues to be hemodynamically stable, infectious etiology is less likely Review of Systems Review of Systems: Yes all other systems are reviewed and are negative Physical Exam Exam: Exam: General: AOx0, unable to express given baseline medical/psychological Resp: CTA bilaterally CVS: S1, S2, RRR GI: +BS, NT, no distention Skin: Warm, dry Limited neurological and psychological condition given baseline condition Vital Signs: Vital Signs: Last Vital Signs Temp 97.4 F 01/08/25 07:31 Pulse 86 01/08/25 07:31 Resp 16 01/08/25 07:31 BP 149/95 H 01/08/25 07:31 Pulse Ox 95 01/08/25 07:31 O2 Del Method Room Air 01/08/25 07:31 BMI result Body Mass Index 25.6 Objective Data Active Medications Acetaminophen (Acetaminophen 325 Mg Tablet) 650 mg PO Q6H PRN PRN Reason: Pain, Mild 1-3,fever,headache Last Admin: 01/06/25 14:52 Dose: 650 mg Documented By: ROSI Albuterol/Ipratropium (Albuterol/Iprat 2.5/0.5mg 3 Ml Ampul.Neb) 3 ml INHALE Q4H PRN PRN Reason: Shortness of Breath/Wheezing Allopurinol (Allopurinol 100 Mg Tablet) 200 mg PO DAILY [facility] Last Admin: 01/07/25 10:56 Dose: 200 mg Documented By: THELMA Apixaban (Apixaban 2.5 Mg Tablet) 2.5 mg PO BID [facility] Last Admin: 01/07/25 21:20 Dose: 2.5 mg Documented By: MINO Artificial Tears (Artificial Tears 15 Ml Drops) 1 drop EYE-BOTH Q4H PRN PRN Reason: Dry eyes Ascorbic Acid (Ascorbic Acid 500 Mg Tablet) 500 mg PO DAILY [facility] Last Admin: 01/07/25 10:57 Dose: 500 mg Documented By: THELMA Atorvastatin Calcium (Atorvastatin Calcium 40 Mg Tablet) 40 mg PO DAILY [facility] Last Admin: 01/07/25 10:56 Dose: 40 mg Documented By: THELMA Benztropine Mesylate (Benztropine Mesylate 1 Mg Tablet) 1 mg PO BID [facility] Last Admin: 01/07/25 21:20 Dose: 1 mg Documented By: MINO Calcium Carbonate (Calcium Carbonate 750 Mg Tab.Chew) 750 mg PO Q4H PRN PRN Reason: Heartburn Clonazepam (Clonazepam 0.5 Mg Tablet) 0.5 mg PO BID [facility] Last Admin: 01/07/25 21:20 Dose: 0.5 mg Documented By: MINO Clonazepam (Clonazepam 0.5 Mg Tablet) 0.5 mg PO DAILY PRN PRN Reason: Anxiety Clozapine (Clozapine 25 Mg Tablet) 50 mg PO DAILY [facility] Last Admin: 01/07/25 10:56 Dose: 50 mg Documented By: THELMA Clozapine (Clozapine 100 Mg Tablet) 300 mg PO BEDTIME [facility] Last Admin: 01/07/25 21:19 Dose: 300 mg Documented By: MINO Dextrose (Dextrose 50 % 25 Gm/50 Ml Syringe) 25 gm IVPUSH Q15M PRN; Protocol PRN Reason: per Hypoglycemia Standing Ord. Fluticasone Propionate (Fluticasone Propionate Nasal 16 Gm [place]) 1 spray NOSTRIL-B BID [facility] Last Admin: 01/07/25 22:58 Dose: Not Given Documented By: MINO Non-Admin Reason: Patient Refused Glucose (Glucose Gel 15 Gm Gel..Gram.) 15 gm PO Q15M PRN; Protocol PRN Reason: per Hypoglycemia Standing Ord. Haloperidol (Haloperidol 5 Mg Tablet) 5 mg PO BEDTIME [facility] Last Admin: 01/07/25 21:19 Dose: 5 mg Documented By: MINO Insulin Human Lispro (Insulin Lispro 100 Unit/Ml 3 Ml Vial) 0 unit SUBCUT QIDACHS [facility]; Protocol Last Admin: 01/07/25 21:19 Dose: 2 unit Documented By: MION Magnesium Hydroxide (Milk Of Magnesia 30 Ml Oral.Susp) 30 ml PO DAILY PRN PRN Reason: Constipation Melatonin (Melatonin 3 Mg Tablet) 6 mg PO BEDTIME PRN PRN Reason: Insomnia Multivitamins/Vitamin C (Multivitamin Tablet) 1 tab PO DAILY [facility] Last Admin: 01/07/25 10:57 Dose: 1 tab Documented By: THELMA Ondansetron HCl (Ondansetron Hcl 4 Mg/2 Ml Vial) 4 mg IVPUSH Q8H PRN PRN Reason: Nausea and Vomiting Polyethylene Glycol (Polyethylene Glycol 3350 17 Gm Powd.Pack) 17 gm PO DAILY PRN PRN Reason: Constipation Senna (Sennosides 8.6 Mg Tablet) 17.2 mg PO BEDTIME [facility] Last Admin: 01/07/25 21:19 Dose: 17.2 mg Documented By: MINO Sertraline HCl (Sertraline Hcl 50 Mg Tablet) 150 mg PO DAILY [facility] Last Admin: 01/07/25 10:56 Dose: 150 mg Documented By: THELMA Sodium Chloride (0.9 % Sodium Chloride Flush 3 Ml Syringe) 3 ml IVFLUSH QSHIFT [facility] Last Admin: 01/07/25 22:59 Dose: Not Given Documented By: MINO Non-Admin Reason: IV Running Vitamin D (Cholecalciferol (Vitamin D3) 25 Mcg Tablet) 25 mcg PO DAILY [facility] Last Admin: 01/07/25 10:57 Dose: 25 mcg Documented By: THELMA Labs 01/06/25 04:12 01/07/25 06:11 Labs: Laboratory Results - last 24 hr 01/07/25 01/07/25 01/07/25 11:14 16:58 21:09 POC Glucose 280 H 139 H 157 H 01/08/25 07:29 POC Glucose 170 H Microbiology Microbiology Results: Microbiology 01/05/25 21:43 Blood Culture - Preliminary Blood - Venous No growth after 48 hours. 01/05/25 21:37 Blood Culture - Preliminary Blood - Venous No growth after 48 hours. Assessment and Plan (1) Acute metabolic encephalopathy: Status: Acute Plan 49-year-old male with history of intellectual disability, schizoaffective disorder, PTSD, T2DM, PE on apixaban, diabetes insipidus who presented to the ED with acute onset altered mental status. Thus far workup is unremarkable and noncontributory. Patient's acute encephalopathy could likely be in the setting of baseline psych conditions versus electrolyte abnormalities , less likely secondary to sepsis Schizoaffective disorder back to baseline PTSD-stable Patient has extensive sepsis and stroke workup thus far unremarkable, responded to brief aggressive hydration and is back to his baseline mental health. Patient has been cleared by psych no medication adjustment manager commodities to help with patient going back to his assisted We will maintain fall and aspiration and seizure precautions Lactic acidemia-s/p normalized post aggressive IV resuscitation PE on apixaban-continue .DVT prophylaxis with home Eliquis This note is constructed using voice recognition software. While every effort has been made to ensure accuracy, retail center receptionist errors may have been included. Quality Stroke Does the patient have a stroke diagnosis?: No Reason for No Anti-thrombotic by Day Two: N/A - Med Ordered VTE Prior VTE?: No VTE Risk Level:: Medical - moderate - high VTE Device Contraindication: N/A - Device Ordered VTE Drug Contraindication: N/A - Med Ordered
[2025-01-08] MEDS: 0.9 % Sodium Chloride Flush 3 ML SYRINGE IVFLUSH ×3 (08:49→20:44)
[2025-01-08] MEDS: Artificial Tears 15 ML DROPS 1 DROP EYE-BOTH (09:10)
[2025-01-08 11:12] LABS: Glucose, Whole Blood 194 mg/dL (60-115)
[2025-01-08 11:29] VITALS: BP 144/95; PULSE 91; RESP 18; TEMP 36.3; O2SAT 96
--- NOTE | 2025-01-08 13:25 | P.CNPS_ITS ---
History of Present Illness Date of Service: 01/08/25 Chief Complaint: PNA, Sepsis Reason for Consult: baseline psych comorbitities without obv. medical explaination of AMS Requesting physician: Nicole Kiser Discussed with referring provider: Yes Sources of Information: patient interviewed and chart reviewed HPI Narrative: Patient is a 49-year-old male with history of intellectual disability, schizoaffective disorder, PTSD, T2DM, PE on apixaban, diabetes insipidus who presented to the ED with acute onset altered mental status. Psychiatric consult placed for: baseline psych comorbitities without obv. medical explaination of AMS During psychiatric assessment, pt presents alert and oriented x3. Patient reports feeling good today; patient stated, I was feeling strange before but I'm not feeling okay now. I'm not sure what made me feel that way. It's hard to describe but, I knew I was not feeling like myself . Patient reports he is starting to feel better and feels like his psychiatric medications work well. Patient smiling and joking during assessment. Patient reports he has been eating well. He denies any substance use. Patient denies SI/HI/VH/AH. He reports being medication compliant when at home. Patient stated, I'm not anxious or depressed. I'm okay . Past Psychiatric History: Outpatient psychiatrist: Dr. Anabelle Armendariz Therapist: Chana Kelly [facility] Two prior inpatient psychiatric hospitalizations. One respite admission. Medical Evaluation Reviewed: Yes [facility] Medical History 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 Gout Hyperlipidemia Bipolar 1 disorder Diabetes insipidus High cholesterol Anxiety PTSD (post-traumatic stress disorder) Schizo affective schizophrenia Surgical History History of colonoscopy (~05/23/24) Hx of tooth extraction Hx of excision of mass Family History: Unknown Social History: Lives in a [facility] adult foster care environment since 2017. Single. No children. Substance History: Denies Trauma History: yes Diagnostics Vital Signs (24Hr): Vital Signs - 24 hr 01/07/25 15:07 01/07/25 19:51 01/07/25 23:46 Temperature 97.8 F 97.3 F 98.0 F Pulse Rate 97 91 82 Respiratory Rate 18 16 16 Blood Pressure 142/99 H 141/97 H 149/96 H Pulse Oximetry 97 96 95 Oxygen Delivery Method Room Air Room Air Room Air 01/08/25 03:48 01/08/25 07:31 01/08/25 11:29 Temperature 98.0 F 97.4 F 97.3 F Pulse Rate 79 86 91 Respiratory Rate 16 16 18 Blood Pressure 130/94 H 149/95 H 144/95 H Pulse Oximetry 94 95 96 Oxygen Delivery Method Room Air Room Air Room Air BMI result Body Mass Index 25.6 Labs 01/06/25 04:12 01/07/25 06:11 Labs: Laboratory Results - last 48 hr 01/06/25 01/06/25 01/06/25 04:12 13:21 15:16 Sodium Potassium Chloride Carbon Dioxide Anion Gap BUN Creatinine Estim Creat Clear Calc Estimated GFR POC Glucose 161 H Random Glucose Lactic Acid 3.2 H* Lactic Acid F/U @ 2Hr Calcium Magnesium Total Bilirubin AST ALT Alkaline Phosphatase Total Creatine Kinase 101 Total Protein Albumin [facility] 01/06/25 01/06/25 01/06/25 17:30 17:45 20:56 Sodium 145 Potassium 4.2 D Chloride 111 H Carbon Dioxide 25 Anion Gap 13 BUN 11 Creatinine 1.22 Estim Creat Clear Calc 69.9 Estimated GFR > 60 POC Glucose 143 H 169 H Random Glucose 125 H Lactic Acid Lactic Acid F/U @ 2Hr 1.8 Calcium 9.9 D Magnesium 1.9 Total Bilirubin 0.2 AST 28 ALT 45 H Alkaline Phosphatase 99 Total Creatine Kinase Total Protein 7.6 Albumin 4.5 TSH 1.59 01/07/25 01/07/25 01/07/25 03:10 06:11 07:13 Sodium Potassium Chloride Carbon Dioxide Anion Gap BUN Creatinine 1.21 Estim Creat Clear Calc 70.5 Estimated GFR > 60 POC Glucose 148 H Random Glucose Lactic Acid 0.8 0.9 Lactic Acid F/U @ 2Hr Calcium Magnesium 1.8 Total Bilirubin AST ALT Alkaline Phosphatase Total Creatine Kinase Total Protein Albumin [facility] 01/07/25 01/07/25 01/07/25 11:14 16:58 21:09 Sodium Potassium Chloride Carbon Dioxide Anion Gap BUN Creatinine Estim Creat Clear Calc Estimated GFR POC Glucose 280 H 139 H 157 H Random Glucose Lactic Acid Lactic Acid F/U @ 2Hr Calcium Magnesium Total Bilirubin AST ALT Alkaline Phosphatase Total Creatine Kinase Total Protein Albumin TSH 01/08/25 01/08/25 07:29 11:02 Sodium Potassium Chloride Carbon Dioxide Anion Gap BUN Creatinine Estim Creat Clear Calc Estimated GFR POC Glucose 170 H 194 H Random Glucose Lactic Acid Lactic Acid F/U @ 2Hr Calcium Magnesium Total Bilirubin AST ALT Alkaline Phosphatase Total Creatine Kinase Total Protein Albumin TSH Mental Status Exam Mental Status Exam Patient Appearance: Appropriate Patient Orientation: Person, Place, Time and Situation Level of Consciousness: Awake and Alert Patient Behavior: Appropriate, Cooperative and Good Eye Contact Mood Description: Calm Affect Description: Calm Ability to Follow Directions: Good Speech Pattern: Clear Hallucinations: None Delusions: Not Present Thought Process: Intact Thought Content: positive for Intact Medications Medications Current Medications Acetaminophen (Acetaminophen 325 Mg Tablet) 650 mg PO Q6H PRN PRN Reason: Pain, Mild 1-3,fever,headache Last Admin: 01/06/25 14:52 Dose: 650 mg Albuterol/Ipratropium (Albuterol/Iprat 2.5/0.5mg 3 Ml Ampul.Neb) 3 ml INHALE Q4H PRN PRN Reason: Shortness of Breath/Wheezing Allopurinol (Allopurinol 100 Mg Tablet) 200 mg PO DAILY [facility] Last Admin: 01/08/25 08:48 Dose: 200 mg Apixaban (Apixaban 2.5 Mg Tablet) 2.5 mg PO BID [facility] Last Admin: 01/08/25 08:48 Dose: 2.5 mg Artificial Tears (Artificial Tears 15 Ml Drops) 1 drop EYE-BOTH Q4H PRN PRN Reason: Dry eyes Last Admin: 01/08/25 09:10 Dose: 1 drop Ascorbic Acid (Ascorbic Acid 500 Mg Tablet) 500 mg PO DAILY [facility] Last Admin: 01/08/25 08:49 Dose: 500 mg Atorvastatin Calcium (Atorvastatin Calcium 40 Mg Tablet) 40 mg PO DAILY [facility] Last Admin: 01/08/25 08:49 Dose: 40 mg Benztropine Mesylate (Benztropine Mesylate 1 Mg Tablet) 1 mg PO BID [facility] Last Admin: 01/08/25 08:48 Dose: 1 mg Calcium Carbonate (Calcium Carbonate 750 Mg Tab.Chew) 750 mg PO Q4H PRN PRN Reason: Heartburn Clonazepam (Clonazepam 0.5 Mg Tablet) 0.5 mg PO BID [facility] Last Admin: 01/08/25 08:48 Dose: 0.5 mg Clonazepam (Clonazepam 0.5 Mg Tablet) 0.5 mg PO DAILY PRN PRN Reason: Anxiety Clozapine (Clozapine 25 Mg Tablet) 50 mg PO DAILY [facility] Last Admin: 01/08/25 08:48 Dose: 50 mg Clozapine (Clozapine 100 Mg Tablet) 300 mg PO BEDTIME [facility] Last Admin: 01/07/25 21:19 Dose: 300 mg Dextrose (Dextrose 50 % 25 Gm/50 Ml Syringe) 25 gm IVPUSH Q15M PRN; Protocol PRN Reason: per Hypoglycemia Standing Ord. Fluticasone Propionate (Fluticasone Propionate Nasal 16 Gm [place]) 1 spray NOSTRIL-B BID [facility] Last Admin: 01/08/25 09:09 Dose: 1 spray Glucose (Glucose Gel 15 Gm Gel..Gram.) 15 gm PO Q15M PRN; Protocol PRN Reason: per Hypoglycemia Standing Ord. Haloperidol (Haloperidol 5 Mg Tablet) 5 mg PO BEDTIME [facility] Last Admin: 01/07/25 21:19 Dose: 5 mg Insulin Human Lispro (Insulin Lispro 100 Unit/Ml 3 Ml Vial) 0 unit SUBCUT QIDACHS [facility]; Protocol Last Admin: 01/08/25 11:54 Dose: 2 unit Magnesium Hydroxide (Milk Of Magnesia 30 Ml Oral.Susp) 30 ml PO DAILY PRN PRN Reason: Constipation Melatonin (Melatonin 3 Mg Tablet) 6 mg PO BEDTIME PRN PRN Reason: Insomnia Multivitamins/Vitamin C (Multivitamin Tablet) 1 tab PO DAILY [facility] Last Admin: 01/08/25 08:48 Dose: 1 tab Ondansetron HCl (Ondansetron Hcl 4 Mg/2 Ml Vial) 4 mg IVPUSH Q8H PRN PRN Reason: Nausea and Vomiting Polyethylene Glycol (Polyethylene Glycol 3350 17 Gm Powd.Pack) 17 gm PO DAILY PRN PRN Reason: Constipation Senna (Sennosides 8.6 Mg Tablet) 17.2 mg PO BEDTIME [facility] Last Admin: 01/07/25 21:19 Dose: 17.2 mg Sertraline HCl (Sertraline Hcl 50 Mg Tablet) 150 mg PO DAILY [facility] Last Admin: 01/08/25 08:48 Dose: 150 mg Sodium Chloride (0.9 % Sodium Chloride Flush 3 Ml Syringe) 3 ml IVFLUSH QSHIFT [facility] Last Admin: 01/08/25 08:49 Dose: 3 ml Vitamin D (Cholecalciferol (Vitamin D3) 25 Mcg Tablet) 25 mcg PO DAILY [facility] Last Admin: 01/08/25 08:48 Dose: 25 mcg Allergies Allergies Allergy/AdvReac Type Severity Reaction Status Date / Time mite-Dermatophagoides Allergy Unknown Itching Verified 01/05/25 19:33 farinae, mary (dust mite - [place]) Penicillins (PENICILLINS) Allergy Unknown Unknown Verified 01/05/25 19:32 pollen extracts Allergy Unknown Itching Verified 01/05/25 19:33 Assessment & Plan Assessment & Plan (1) Schizoaffective disorder: Status: Acute Code(s): F25.9 - Schizoaffective disorder, unspecified (2) PTSD (post-traumatic stress disorder): Status: Acute Code(s): F43.10 - Post-traumatic stress disorder, unspecified (3) Intellectual disability: Status: Acute Code(s): F79 - Unspecified intellectual disabilities Plan Recommendations: -continue current psychiatric medications. -have patient follow up with outpatient psychiatric providers. -reconsult if needed. Total time managing care of this patient today _30___ minutes. Patient educated on: medication risk/benefits
[2025-01-08 15:25] VITALS: BP 138/96; PULSE 97; RESP 14; TEMP 36.4; O2SAT 95
[2025-01-08 16:18] LABS: Glucose, Whole Blood 195 mg/dL (60-115)
[2025-01-08 19:59] VITALS: BP 139/97; PULSE 86; RESP 16; TEMP 36.1; O2SAT 95
[2025-01-08 20:53] LABS: Glucose, Whole Blood 190 mg/dL (60-115)
[2025-01-09] VITALS: BP 140/93; PULSE 88; RESP 16; TEMP 37.1; O2SAT 96
[2025-01-09 03:56] VITALS: BP 118/71; PULSE 74; RESP 16; TEMP 36.1; O2SAT 95
[2025-01-09 07:04] LABS: Glucose, Whole Blood 207 mg/dL (60-115)
[2025-01-09 07:09] VITALS: BP 116/76; PULSE 96; RESP 14; TEMP 36.1; O2SAT 93
--- NOTE | 2025-01-09 07:35 | P.PNIM_ITS ---
Subjective Subjective Date of Service: 01/09/25 Physical Exam 2 Vital Signs: Vital Signs: Last Vital Signs Temp 97.0 F 01/09/25 07:09 Pulse 96 01/09/25 07:09 Resp 14 01/09/25 07:09 BP 116/76 01/09/25 07:09 Pulse Ox 93 01/09/25 07:09 O2 Del Method Room Air 01/09/25 07:09 BMI result Body Mass Index 25.6 Objective Data Active Medications Acetaminophen (Acetaminophen 325 Mg Tablet) 650 mg PO Q6H PRN PRN Reason: Pain, Mild 1-3,fever,headache Last Admin: 01/06/25 14:52 Dose: 650 mg Documented By: ROSI Albuterol/Ipratropium (Albuterol/Iprat 2.5/0.5mg 3 Ml Ampul.Neb) 3 ml INHALE Q4H PRN PRN Reason: Shortness of Breath/Wheezing Allopurinol (Allopurinol 100 Mg Tablet) 200 mg PO DAILY [facility] Last Admin: 01/08/25 08:48 Dose: 200 mg Documented By: GREGG Apixaban (Apixaban 2.5 Mg Tablet) 2.5 mg PO BID [facility] Last Admin: 01/08/25 20:42 Dose: 2.5 mg Documented By: MINO Artificial Tears (Artificial Tears 15 Ml Drops) 1 drop EYE-BOTH Q4H PRN PRN Reason: Dry eyes Last Admin: 01/08/25 09:10 Dose: 1 drop Documented By: THELMA Ascorbic Acid (Ascorbic Acid 500 Mg Tablet) 500 mg PO DAILY [facility] Last Admin: 01/08/25 08:49 Dose: 500 mg Documented By: GREGG Atorvastatin Calcium (Atorvastatin Calcium 40 Mg Tablet) 40 mg PO DAILY [facility] Last Admin: 01/08/25 08:49 Dose: 40 mg Documented By: GREGG Benztropine Mesylate (Benztropine Mesylate 1 Mg Tablet) 1 mg PO BID [facility] Last Admin: 01/08/25 20:42 Dose: 1 mg Documented By: MINO Calcium Carbonate (Calcium Carbonate 750 Mg Tab.Chew) 750 mg PO Q4H PRN PRN Reason: Heartburn Clonazepam (Clonazepam 0.5 Mg Tablet) 0.5 mg PO BID [facility] Last Admin: 01/08/25 20:41 Dose: 0.5 mg Documented By: MINO Clonazepam (Clonazepam 0.5 Mg Tablet) 0.5 mg PO DAILY PRN PRN Reason: Anxiety Clozapine (Clozapine 25 Mg Tablet) 50 mg PO DAILY [facility] Last Admin: 01/08/25 08:48 Dose: 50 mg Documented By: GREGG Clozapine (Clozapine 100 Mg Tablet) 300 mg PO BEDTIME [facility] Last Admin: 01/08/25 20:40 Dose: 300 mg Documented By: MINO Dextrose (Dextrose 50 % 25 Gm/50 Ml Syringe) 25 gm IVPUSH Q15M PRN; Protocol PRN Reason: per Hypoglycemia Standing Ord. Fluticasone Propionate (Fluticasone Propionate Nasal 16 Gm [place]) 1 spray NOSTRIL-B BID [facility] Last Admin: 01/08/25 20:42 Dose: 1 spray Documented By: MINO Glucose (Glucose Gel 15 Gm Gel..Gram.) 15 gm PO Q15M PRN; Protocol PRN Reason: per Hypoglycemia Standing Ord. Haloperidol (Haloperidol 5 Mg Tablet) 5 mg PO BEDTIME [facility] Last Admin: 01/08/25 20:41 Dose: 5 mg Documented By: MINO Insulin Human Lispro (Insulin Lispro 100 Unit/Ml 3 Ml Vial) 0 unit SUBCUT QIDACHS [facility]; Protocol Last Admin: 01/08/25 21:01 Dose: 2 unit Documented By: MINO Magnesium Hydroxide (Milk Of Magnesia 30 Ml Oral.Susp) 30 ml PO DAILY PRN PRN Reason: Constipation Melatonin (Melatonin 3 Mg Tablet) 6 mg PO BEDTIME PRN PRN Reason: Insomnia Multivitamins/Vitamin C (Multivitamin Tablet) 1 tab PO DAILY [facility] Last Admin: 01/08/25 08:48 Dose: 1 tab Documented By: GREGG Ondansetron HCl (Ondansetron Hcl 4 Mg/2 Ml Vial) 4 mg IVPUSH Q8H PRN PRN Reason: Nausea and Vomiting Polyethylene Glycol (Polyethylene Glycol 3350 17 Gm Powd.Pack) 17 gm PO DAILY PRN PRN Reason: Constipation Senna (Sennosides 8.6 Mg Tablet) 17.2 mg PO BEDTIME [facility] Last Admin: 01/08/25 20:42 Dose: 17.2 mg Documented By: MINO Sertraline HCl (Sertraline Hcl 50 Mg Tablet) 150 mg PO DAILY [facility] Last Admin: 01/08/25 08:48 Dose: 150 mg Documented By: GREGG Sodium Chloride (0.9 % Sodium Chloride Flush 3 Ml Syringe) 3 ml IVFLUSH QSHIFT [facility] Last Admin: 01/08/25 20:44 Dose: 3 ml Documented By: MINO Vitamin D (Cholecalciferol (Vitamin D3) 25 Mcg Tablet) 25 mcg PO DAILY [facility] Last Admin: 01/08/25 08:48 Dose: 25 mcg Documented By: GREGG Labs 01/06/25 04:12 01/07/25 06:11 Labs: Laboratory Results - last 24 hr 01/08/25 01/08/25 01/08/25 07:29 11:02 16:10 POC Glucose 170 H 194 H 195 H 01/08/25 01/09/25 20:45 06:54 POC Glucose 190 H 207 H Quality Stroke Does the patient have a stroke diagnosis?: No Reason for No Anti-thrombotic by Day Two: N/A - Med Ordered VTE Prior VTE?: No VTE Risk Level:: Medical - moderate - high VTE Device Contraindication: N/A - Device Ordered VTE Drug Contraindication: N/A - Med Ordered
[2025-01-09] MEDS: 0.9 % Sodium Chloride Flush 3 ML SYRINGE IVFLUSH (08:18)
--- NOTE | 2025-01-09 10:50 | MHC.CM.PN ---
EMR reviewed and per MD rounds, pt is medically cleared for discharge. This CM placed a call to pts mother/Guardian Nathalia, to plan for pts discharge/transportation, she will be in today to transport him home to his [facility] adult foster long term. Second IMM given 01/09.
[2025-01-09 11:19] LABS: Glucose, Whole Blood 265 mg/dL (60-115)
[2025-01-09 11:47] VITALS: BP 144/108; PULSE 113; RESP 16; TEMP 36.2; O2SAT 96
--- NOTE | 2025-01-09 12:44 | PM.DS ---
DS: Providers Provider Date of Service: 01/09/25 Date of admission: 01/06/25 02:25 Date of discharge: 01/09/25 Primary care physician: Reji Keith MD Consults: 01/06/25 16:48 Consult to Psychiatry Routine Consulting Provider[place] [facility] [place] Reason for consultation: baseline psych comorbidities wthout obv medical explanation of AMS DS: Diagnosis Discharge Diagnosis (1) Acute metabolic encephalopathy: Status: Acute DS: Summary Hospital Course Hospital Course: Patient's acute encephalopathy could likely be in the setting of baseline psych conditions versus electrolyte abnormalities , less likely secondary to sepsis Schizoaffective disorder back to baseline PTSD-stable 49-year-old male with history of intellectual disability, schizoaffective disorder, PTSD, T2DM, PE on apixaban, diabetes insipidus who presented to the ED with acute onset altered mental status. Thus far workup is unremarkable and noncontributory. Patient has extensive sepsis, trauma and stroke workup thus far unremarkable, responded to brief aggressive hydration and is back to his baseline mental health without aggressive medical management. Electrolytes have been checked and repleted to goal. Psych was consulted and no medication changes. Patient was hydrated with some IV fluids, no changes in medications have been made during this hospitalization. Patient is medically optimized to return to his day program from Sunday Lactic acidemia-s/p normalized post aggressive IV resuscitation PE on apixaban-continued .DVT prophylaxis with home Eliquis This note is constructed using voice recognition software. While every effort has been made to ensure accuracy, web content editor errors may have been included. Time spent discussing smoking cessation with patient: more than 10 minutes Time Attestation Discharge Coordination Time (in mins): 35 Quality: Safe Use of Opioids Does Pt have an Active Cancer Diagnosis on the Problem List?: No Quality: Stroke Does the patient have a stroke diagnosis?: No Physical Exam Vital Signs: Vital Signs: Last Vital Signs Temp 97.1 F 01/09/25 11:47 Pulse 113 H 01/09/25 11:47 Resp 16 01/09/25 11:47 BP 144/108 H 01/09/25 11:47 Pulse Ox 96 01/09/25 11:47 O2 Del Method Room Air 01/09/25 11:47 BMI result Body Mass Index 25.6 DS: Data Data Completed and Pending Labs on day of discharge: Laboratory Results - last 24 hr 01/08/25 01/08/25 01/09/25 16:10 20:45 06:54 POC Glucose 195 H 190 H 207 H 01/09/25 11:15 POC Glucose 265 H Preliminary micro results at discharge 01/05/25 21:43 Blood Culture - Preliminary Blood - Venous No growth after 48 hours. 01/05/25 21:37 Blood Culture - Preliminary Blood - Venous No growth after 48 hours. Discharge Plan Discharge Anticipated Discharge Date/Time: 01/09/25 11:58 Patient Disposition: Home, Self-Care Discharge Diagnosis: Acute AMS with unclear etiology-resolved Referrals: [facility] [Other] - 1 Week Reji Keith MD [Primary Care Provider, Internal Medicine] - 1 Week Discharge Medications: Continued (DME) FreeStyle Lite Strips Strip See Rx Instructions .Route Qty: 100 4RF Rx Instructions: As directed tests 3X day (DME) lancets [FreeStyle Lancets] 28 gauge misc See Rx Instructions .ROUTE .MEDSUPPLY Qty: 100 1RF Rx Instructions: 3 times a day prn sensor failure or to confirm glucose dispense as 33 guage if available multivitamin Tablet 1 tab PO DAILY Qty: 90 1RF clozapine 100 mg tablet 300 mg PO BEDTIME Qty: 90 3RF insulin aspart U-100 [Novolog FlexPen U-100 Insulin] 100 unit/mL (3 mL) insulin pen 1 sliding scale dose subcut USEASDIRECTD MDD 54 30 Days Qty: 18 3RF Rx Instructions: 4-18 units t.i.d. per scale metformin 1,000 mg tablet 1,000 mg PO BID Qty: 180 0RF fluticasone propionate 50 mcg/actuation spray,suspension 1 spray intranasal BID Qty: 16 4RF haloperidol 5 mg Tablet 5 mg PO BEDTIME sertraline 100 mg tablet 1.5 tab PO DAILY simvastatin 80 mg tablet 1 tab PO DAILY ascorbic acid (vitamin C) [Vitamin C] 500 mg tablet 1 tab PO DAILY cholecalciferol (vitamin D3) [Vitamin D3] 25 mcg (1,000 unit) capsule 1 cap PO DAILY benztropine 1 mg tablet 1 mg PO BID clonazepam 0.5 mg tablet 0.5 mg PO DAILY PRN (Reason: Anxiety) clonazepam 0.5 mg Tablet 0.5 mg PO BID Rx Instructions: and may take 1 additional dose PRN allopurinol 100 mg Tablet 200 mg PO DAILY clozapine 50 mg Tablet 50 mg PO DAILY insulin glargine [Basaglar KwikPen U-100 Insulin] 100 unit/mL (3 mL) insulin pen 20 unit subcut DAILY (DME) pen needle, diabetic [Emmy 2nd Gen Pen Needle] 32 gauge x 5/32 needle See Rx Instructions .Route Qty: 300 3RF Rx Instructions: use 4 times a day (DME) pen needle, diabetic 32 gauge x 5/32 needle See Rx Instructions .ROUTE .MEDSUPPLY Qty: 200 6RF Rx Instructions: qid Eliquis 2.5 mg tablet 2.5 mg PO BID Qty: 180 1RF Discharge Orders: Discharge Order (Routine); Ordered 01/09/25 Ordered By: Nicole Kiser Diet: Low salt diet Activity on Discharge: As tolerated Stand Alone Forms: Patient Portal Discharge page Print Language: Bulgarian Care Plan Goals: Wants to go back to his day program Patient is medically optimized Health Concerns: See above Plan of Treatment: See above Assessment: See above
--- NOTE | 2025-01-09 12:48 | PM.EVENT ---
Event Note Date of Service: 01/09/25 Event Note: Patient is medically optimized to return to the day program from Sunday01/12/2025 Time Spent With Patient Time: Total time managing care of this patient today ____ minutes.
--- NOTE | 2025-02-02 20:05 | P.CDIM_ITS ---
PROVIDER RESPONSE TEXT: To clarify, the appropriate diagnosis supported by the clinical indicators: Other (explain): Patient is a poor historian at baseline, it appears that he had electrolyte abnormalities, responded to fluids and electrolyte replacement. Could not identify an accurate source leukocytosis and tachycardia could be in the setting of acute distress. He has been off antibiotics and continued to do well and [facility] QUERY TEXT: PHYSICIAN'S DOCUMENTATION REQUEST Date of Query: 01/23/2025 12:17 PM EDT Patient Name: Gautam Simmons Admit Date: 01/06/2025 Dear Nicole Kiser MD, A review of the medical record indicates additional documentation may be needed. Please review below and update the documentation accordingly. Documentation on the H&P dated 01/06/25 included the diagnosis of sepsis. The patient's infectious clinical indicators include: WBC 10.9 pulse 117 lactic acid 4.7 Per Hospitalist Progress note 01/06/25: Sepsis workup unremarkable Patient does not appear to be in severe sepsis Per Discharge Summary less likely secondary to sepsis Recognized standard criteria for this condition and other infectious definitions includes: Sepsis Systemic manifestations of infection, with 2 or more SIRS criteria which include: Fever > 100.4?F or hypothermia < 96.8?F Leukocytosis - WBC > 12,000 or leukopenia, WBC < 4,000, or > 10% bands Tachycardia- > 90 beats/minute Tachypnea- RR > 20 breaths/minute or PaCO2 < 32mmHg Source: Merck Manual 2013 Documentation should include the known or suspected organism, and the underlying infection, such as UTI or pneumonia Based on the above information and the recognized standard for sepsis, could you please clarify if this diagnoses is still accurate and reflective of the patient's condition to ensure quality of the medical record. Sepsis is/was present and is a clinical diagnosis After study, Sepsis has been ruled out Other (explain) Clinically unable to determine (explain) Thank you, Batsheva Peng RN Use of terms such as suspected, likely, concern for, or probable (associated with a specific diagnosis that is being evaluated, monitored, or treated as if it exists) are acceptable and can be coded in the inpatient setting, when documented at the time of discharge. Please use your independent medical judgment in providing your response. THIS QUERY IS PART OF THE PERMANENT MEDICAL RECORD
== END 2025-01-09 13:30 | disposition home or self-care (01) | DRG 72 ==
LOC: HO.ED 22:05 → HO.EDOVER 01-06 02:31 → HO.IMC 01-06 15:37
PROVIDERS: Registered Nurse Emergency; Admitting Provider Nurse Practitioner Family; Emergency Provider Student in an Organized Health Care Education/Training Program; PCP Internal Medicine; Visit Provider Student in an Organized Health Care Education/Training Program
DX: G93.41 Metabolic encephalopathy (principal); F25.9 Schizoaffective disorder, unspecified; E11.9 Type 2 diabetes mellitus without complications; F79 Unspecified intellectual disabilities; F43.10 Post-traumatic stress disorder, unspecified; Z20.822 Contact with and (suspected) exposure to COVID-19; Z86.711 Personal history of pulmonary embolism; Z79.4 Long term (current) use of insulin; Z79.01 Long term (current) use of anticoagulants; Z79.84 Long term (current) use of oral hypoglycemic drugs; Z79.899 Other long term (current) drug therapy
CPT/HCPCS: 36415; 70450; 70496; 70498; 71046; 71260; 74177; 80048; 80053; 80061; 81003; 82550; 82565; 82947; 83605; 83735; 84443; 84484; 85025; 85610; 85730; 87040; 87502; 87635; 92610; 93005; 95816; 99285; J0360; J1956; J3373; J3374; J3411; J3480; J7120; Q9967

== ENCOUNTER → 2025-01-05 19:34 | Outpatient (BNV) | payer MEDICARE, MEDICAID, SELFPAY | PROVIDERS: Emergency Provider Student in an Organized Health Care Education/Training Program; PCP Internal Medicine; Visit Provider Specialist | DX: K40.20 Bilateral inguinal hernia, without obstruction or gangrene, not specified as recurrent (principal); R91.8 Other nonspecific abnormal finding of lung field; R05.9 Cough, unspecified | CPT/HCPCS: 70450; 70496; 70498; 71046; 71260; 74177 ==

== ENCOUNTER → 2025-01-05 19:34 | Outpatient (BNV) | payer MEDICARE, MEDICAID, SELFPAY | PROVIDERS: Admitting Provider Nurse Practitioner Family; Emergency Provider Student in an Organized Health Care Education/Training Program; PCP Internal Medicine; Visit Provider Internal Medicine | DX: I25.2 Old myocardial infarction (principal); R00.0 Tachycardia, unspecified | CPT/HCPCS: 93010 ==

== ENCOUNTER 2025-01-06 02:25 | Outpatient (BNV) | payer MEDICARE, MEDICAID, SELFPAY | END 2025-01-06 13:00 | PROVIDERS: Admitting Provider Nurse Practitioner Family; Emergency Provider Student in an Organized Health Care Education/Training Program; PCP Internal Medicine; Visit Provider Psychiatry & Neurology Neurology | DX: R74.02 Elevation of levels of lactic acid dehydrogenase [LDH] (principal) | CPT/HCPCS: 95819 ==

== ENCOUNTER → 2025-01-06 02:25 | Outpatient (BNV) | payer MEDICARE, MEDICAID, SELFPAY | PROVIDERS: Admitting Provider Nurse Practitioner Family; Emergency Provider Student in an Organized Health Care Education/Training Program; PCP Internal Medicine; Visit Provider Nurse Practitioner Family | DX: G93.41 Metabolic encephalopathy (principal) | CPT/HCPCS: 99223; 99232; 99239; 99499 ==

== ENCOUNTER → 2025-01-06 02:25 | Outpatient (BNV) | payer MEDICARE, MEDICAID, SELFPAY | PROVIDERS: Admitting Provider Nurse Practitioner Family; Emergency Provider Student in an Organized Health Care Education/Training Program; PCP Internal Medicine; Visit Provider Registered Nurse | DX: F25.9 Schizoaffective disorder, unspecified (principal); F43.10 Post-traumatic stress disorder, unspecified; F79 Unspecified intellectual disabilities | CPT/HCPCS: 99222 ==

== ENCOUNTER 2025-01-14 09:18 | Outpatient (AMB) | payer MEDICARE, MEDICAID, SELFPAY ==
--- OUTSIDE RECORDS SUMMARY | 2023-12-25 12:00 | XMS_ITS ---
Author Organization [facility] Address [address] [place] [address] Care Team Providers Care Home Builder Name Role Phone Sagar, Kartik Primary Care Provider Marcus Tracey Unavailable [phone] Medications Medication SIG (Take, Route, Frequency, Duration) [...] Active Encounters Encounter Location Date Provider Diagnosis [facility] [place] [address] [place] [address] 12/25/2023 Marcus Tracey Plan Of Treatment Next Appt Details Provider Name:Marcus Tracey , 03/17/2025 04:00:00 PM, [address] [place], [address], Progress Notes * SIMMONSMoisesKarenOB:1975 ( 49 yo M)Acc No.[id number]:12/25/2023 Progress Note Patient: Gautam RODRIGUEZ Provider: Nneka Tracey DPM :1975 A ge:48 Y S ex:Male Date:12/25/2023 Address:[facility] , [address] [place], [place] [id number] Pcp:Reji Keith Subjective: * Chief Complaints: * [...] Pending * Provider: Nneka Tracey DPM Date: 12/25/2023 Generated for Luz burris/Danny/Nadine on: 01/14/2025 10:57 AM EDT
--- OUTSIDE RECORDS SUMMARY | 2024-02-19 11:15 | XMS_ITS ---
Author Organization [facility] Address [address] [place] [address] Care Team Providers Care Project Manager Senior Name Role Phone Reji Keith Primary Care Provider Marcus Tracey [phone] Encounters Encounter Location Date Provider Diagnosis [address] [address] 02/19/2024 Marcus Tracey Plan Of Treatment Next Appt Details Provider Name:Marcus Tracey , 03/17/2025 04:00:00 PM, [address] [place] [address], [address], Progress Notes * Moises SIMMONSinDOB:1975 ( 49 yo M)Acc No.[id number]:02/19/2024 Progress Note Patient: Gautam RODRIGUEZ Provider: Nneka Tracey DPM :1975 A ge:48 Y S ex:Male Date:02/19/2024 Address:[facility] , [address] [place], [place] [phone] Pcp:Reji Keith Subjective: * Chief Complaints: * [...] 1 Generated for Luz Sterling on: 0 01/14/2025 10:56 AM EDT
--- OUTSIDE RECORDS SUMMARY | 2024-05-23 07:40 | XMS_ITS ---
Author Organization [facility] Address [address] [place] [phone] Care Team Providers Care Scheduling Clerk Name Role Phone Yael (RETIRED) Trevor ALONZO Primary Care Provide r Naveen Escobar Jr REASON FOR VISIT screening Encounters Encounter Location Date Provider Diagnosis [facility] [address] [place] [phone] 05/23/2024 Naveen Yang Jr Colon cancer screening Z12.11 Assessments Encounter Date Diagnosis (ICD Code) Assessment Notes Treatment Notes Treatment Clinical Notes Section Notes 05/23/2024 Colon cancer screening (ICD-10 - Z12.11) Plan Of Treatment No Information Progress Notes * ANA FERMIN ADOB:1975 (49 yo M)Acc No.[id number]:05/23/2024 COLON WITH MAC Patient: FERMIN RODRIGUEZ Provider: Twan Yang MD :1975 A ge:48 Y S ex:Male Date:05/23/2024 Address:[address] [place], [place] [phone] Pcp:Trevor Conley (RETIRED )MD Subjective: * Chief [...] 05/23/2024 Generated for Luz burris/Danny/Nadine on: 0 01/14/2025 10:56 AM EDT
--- NOTE | 2025-01-14 09:21 | A.OFFPC_ITS ---
Vital Signs 01/14/25 09:25 Weight 73.936 kg BP 116/80 Blood Pressure Location Lt brachial Position Sitting Pulse 110 H Pulse Source Pulse Oximeter Temp 98.4 F Temp Source Temporal Artery Scan Pulse Oximetry (%) 97 Oxygen Delivery Method Room Air Intake Visit Reasons: TCM dc 01/09 had pneumonia Svp Digital Sales Required: No Accompanied by: Mother Allergies mite-Dermatophagoides farinae, mary (dust mite - [place]) Allergy (Unknown, Verified 01/14/25 09:22) Itching Penicillins (PENICILLINS) Allergy (Unknown, Verified 01/14/25 09:22) Unknown pollen extracts Allergy (Unknown, Verified 01/14/25 09:22) Itching Medication List - Last Reconciled 01/14/25 by Kelly Bains LPN allopurinol 200 mg PO DAILY apixaban (Eliquis) 2.5 mg PO BID ascorbic acid (vitamin C) (Vitamin C) 1 tab PO DAILY benztropine 1 mg PO BID blood sugar diagnostic (FreeStyle Lite Strips) As directed tests 3X day cholecalciferol (vitamin D3) (Vitamin D3) 1 cap PO DAILY clonazepam 0.5 mg PO BID clozapine 300 mg (3 x 100 mg) PO BEDTIME fluticasone propionate 50 mcg/actuation 1 spray intranasal BID haloperidol 5 mg PO BEDTIME insulin aspart U-100 (Novolog FlexPen U-100 Insulin aspart) 1 sliding scale dose subcut USEASDIRECTD 30 days MDD 54 insulin glargine (Basaglar KwikPen U-100 Insulin) 20 units subcut DAILY lancets (FreeStyle Lancets) 3 times a day prn sensor failure or to confirm gl ucose dispense as 33 guage if available metformin 1,000 mg PO BID multivitamin 1 tab PO DAILY pen needle, diabetic qid pen needle, diabetic (Emmy 2nd Gen Pen Needle) use 4 times a day sertraline 1.5 tabs PO DAILY simvastatin 1 tab PO DAILY Tobacco use date assessed: 08/13/24 Dental Screening Dental Screen Date: 01/14/25 Did you have a dental visit in the last 12 months?: Yes Did you have a dental problem in the last 6 months where you did not have access to dental care?: No Was dental information given to patient?: Patient has dentist HPI HPI Comments History of Present Illness Details 49-year-old male with history of schizoa ffective disorder, intellectual disability, history of saddle pulmonary embolus, type 2 diabetes, history of diabetes insipidus presents to the office today accompanied by his mother, who is his legal guardian, for management of chronic conditions and for hospital discharge follow-up. He was admitted to [facility] from 01/06 2 01/09 due to acute metabolic encephalopathy with baseline psychiatric conditions versus electrolyte abnormalities less likely secondary to sepsis. Mom reports that he was having difficulty speaking though he knew what he wanted to say. This was different than the episodes of catatonia he had had in the past. He did undergo extensive workup which was largely unremarkable but did respond to brief aggressive hydration with return to baseline mental health without any aggressive medical management. Hematology studies showed a new mild anemia with H/H9.8/30.1% on discharge, 13.2/30 8.4% the day prior. There is a slight leukocytosis of 10.5 on arrival. On arrival, creatinine slightly bumped from baseline at 1.24. He did have a lactic acidemia initially 4.7 which did trend down with IV fluids, likely secondary to hypovolemia. Potassium level did drop to 2.9 with sodium level increased to 147, chloride bumped to 119 following fluids improved to 111 after IV fluid change. Calcium level also initially low at 6.8, improved to 9.9. Urinalysis not indicative of infection. CTA of the head/neck and head CT negative for any acute intracranial abnormality. Chest x- ray negative for any acute findings. CTA of the chest showed bilateral lower lobe ground-glass opacities possibly representing edema versus atypical pneumonia. There also suspected reactive small prevascular mediastinal nodes. CT of the abdomen/pelvis negative for acute findings. Given concerns for severe sepsis, he was treated empirically with vancomycin and ceftriaxone which were considered for an additional day for continue monitoring though as admission went on, there was lower suspicion of sepsis or severe sepsis. Psych was consulted and he was recommended to continue medications. Schizoaffective disorder/PTSD-history of hospitalizations at [facility] for what mother describes as a catatonic episode from 08/05-08/08. Reportedly, he all of a sudden became confused and minimally responsive. He improved without intervention and no changes to medications were made while on the unit. He has not had any recurrent episodes and last episode was about 9 years ago. He does have auditory hallucinations chronically but reports the voices are more positive and he is not distressed by these. There is occasional visual hallucinations such as flash of light or shadow of a person but again is not distressing. He [facility] with [facility] and [facility]. Compliant with Cogentin, clonazepam, Clozaril, Haldol, sertraline. His psychiatrist is managing Clozaril levels. Unfortunately, no definitive cause has been determined of the catatonic episodes. 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 Denies any GI bleeding, easy bruisability, or excessive bleeding. Type 2 diabetes-last hemoglobin A1c 9.9%. Using 20 units Basaglar as well as NovoLog on sliding scale. Has a CGM and glucose levels have been improving. Hypoglycemia alarm. Following with endocrinology. History of diabetes insipidus-likely related to lithium use And has resolved per endocrinology Concerns: none Health Maintenance: Last colonoscopy 04/2024 with 10 year follow-up ROS: See HPI EXAM: Constitutional - Awake and Alert, No apparent distress Eyes - PERRL Cardiovascular - S1S2, RRR, No edema Respiratory - Normal lung expansion, Normal respiratory effort, No respiratory distress, CTA bilaterally Extremities - no calf tenderness bilaterally, no swelling Skin - Warm/Dry Neurological - Alert & oriented, able to provide history Psychological - Appropriate affect [facility] Medical History 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 Gout Hyperlipidemia Bipolar 1 disorder Diabetes insipidus High cholesterol Anxiety PTSD (post-traumatic stress disorder) Schizo affective schizophrenia Surgical History History of colonoscopy (~05/23/24) Hx of tooth extraction Hx of excision of mass Family History Mother Fibromyalgia Post traumatic stress disorder (PTSD) Anxiety Osteopenia High cholesterol Anemia Cerebellar ataxia Social History Household Members: Caregiver Household Members Other:: Jarvis and Amarilis foster Housing: Other Housing Other:: detention Do you presently have visiting nurse or other home services: Yes Alcohol intake: never Patient Tobacco Use Status: Never used Tobacco e-Cigarette/Vaping Use: Never Used Substance Use Type: Caffiene Advance Directives Date on File: 07/05/23 service: No Current occupational status: disabled Sexual orientation: Don't Know Cognitive needs: No Hearing needs: No Vision needs: No Questionnaire Thrive Questionnaire Date Thrive assessed: 01/06/25 AUDIT C Alcohol Use Questionnaire (AUDIT-C) 1. How often do you have a drink containing alcohol?: Never 3. How often do you have six or more drinks on one occasion?: Never Total Score: 0 MUNIR-7 AMB Questionnaire MUNIR-7 Date MUNIR - 7 assessed: 08/13/24 Source: Developed by Drs. Zbigniew Walton, Isabela Bains, Eddie Vallejo and colleagues, with an educational bev from [employer]. Physical exam (Primary Care) Vital Signs: Last Vital Signs Temp 98.4 F 01/14/25 09:25 Pulse 110 H 01/14/25 09:25 BP 116/80 01/14/25 09:25 Pulse Ox 97 01/14/25 09:25 Oxygen Delivery Method Room Air 01/14/25 09:25 Tobacco/Smoking Status: Tobacco use Status Tobacco use date assessed 08/13/24 01/14/25 09:24 Patient Tobacco Use Status Never used Tobacco 01/14/25 09:24 e-Cigarette/Vaping Use Never Used 01/14/25 09:24 Thrive Assessment: Date of Thrive Assessment Date Thrive assessed 01/06/25 01/14/25 09:24 Coding Level of Care Code Est Pt Level 4 (82953) Complex EM visit Add On G2211 Diagnoses Schizoaffective disorder F25.9 Saddle pulmonary embolus I26.92 Insulin dependent type 2 diabetes mellitus E11.9; Z79.4 Assessment & Plan Assessment & Plan (1) Schizoaffective disorder: Code(s): F25.9 - Schizoaffective disorder, unspecified Category: Medical Plan: Resolved. Reviewed discharge summary, labs, imaging studies including CTA of the head and neck, head CT, CT of the abdomen/pelvis, chest x-ray, CT of the chest. Labs also reviewed. After extensive workup and review of clinical history, infection was less likely. Suspect related to electrolyte abnormalities which were repleted and improved with IV fluid resuscitation. Also possibly related to decompensation of psychiatric conditions though seems less likely. Initial concerned for CVA ruled as unlikely given anticoagulation and negative imaging. (2) Saddle pulmonary embolus: Comment: september 2016, on coumadin indefinitely Code(s): I26.92 - Saddle embolus of pulmonary artery without acute cor pulmonale Category: Medical Plan: Continue on Eliquis (3) Insulin dependent type 2 diabetes mellitus: Code(s): E11.9 - Type 2 diabetes mellitus without complications; Z79.4 - [facility] ( current) use of insulin Category: Medical Plan: A1c greatly improved. Continue following with endocrinology. Continue 20 units Basaglar and NovoLog on sliding scale. Diabetic diet, annual eye exams. Plan Follow-up in the office in 4 months with labs to be completed prior to visit Orders: Orders Complete Blood Count Auto Diff Today E11.9 - Type 2 diabetes mellitus without complications, E87.0 - Hyperosmolality and hypernatremia, Z79.4 - [facility] (current) use of insulin Basic Metabolic Panel Today E87.0 - Hyperosmolality and hypernatremia
[2025-01-14 09:25] VITALS: BP 116/80; PULSE 110; TEMP 36.9; O2SAT 97
--- OUTSIDE RECORDS SUMMARY | 2025-01-14 10:56 | XMS_ITS | Clinical Summary ---
Author Organization [employer] Address [address] [place] [address] Care Team Providers Care Mortar Mixer Name Role Phone Unavailable Primary Care Provider [...] Most Recently Relevant to Health Maintenance Insurance [facility] MEDICAID STAND ADULT
--- OUTSIDE RECORDS SUMMARY | 2025-01-14 10:56 | XMS_ITS | Patient Health Record ---
Author Organization [facility] Address [address] [place] [address] Care Team Providers Care Automobile Rental Agent Name Role Phone Reji Keith Primary Care Provider [phone] Marcus Tracey [phone] Allergies Allergen (clinical drug ingredient) Drug/Non Drug [...] Problem Acquired hammer toe of right foot (83118414003000 05) Other hammer toe(s) (acquired), right foot (M20.41) Active confirmed Response to treatment,I mprovement Problem Acquired hammer toe of left foot (24400004770949 03) Other hammer toe(s) (acquired), left foot (M20.42) Active confirmed Response to treatment,I mprovement Problem Type II diabetes mellitus without complication (139076805) Type 2 diabetes mellitus without complication (E11.9) Active confirmed Vital Signs Blood pressure diastolic 65 mm Hg 11/25/2024 Height 5ft 6in in 11/25/2024 Blood pressure systolic 120 mm Hg 11/25/2024 Weight 166 lbs 11/25/2024 BMI 26.79 kg/m2 11/25/2024 Procedures Procedure Date Ordered Date Performed Result Body Sit e 56694-DKPAIHJ NAIL, 6 OR MORE 05/13/2024 N/A 71862-EYJBIVR NAIL, 6 OR MORE 08/19/2024 N/A 15282-[id number] NAIL, 6 OR MORE 11/25/2024 N/A Encounters Encounter Location Date Provider Diagnosis [address] [address] 05/13/2024 Marcus Kyung Pain in right toe(s) M79.674 ; Tinea unguium B35.1 ; Pain in left toe(s) M79.675 ; Type 2 diabetes mellitus without complication E11.9 ; Other hammer toe(s) (acquired), right foot M20.41 and Other hammer toe(s) (acquired), left foot M20.[address] [address] 08/19/2024 Marcus Kyung Pain in right toe(s) M79.674 ; Tinea unguium B35.1 ; Pain in left toe(s) M79.675 and Type 2 diabetes mellitus without complication E11.[address] [address] 11/25/2024 Marcus Kyung Pain in right toe(s) M79.674 ; Other hammer toe(s) (acquired), right foot M20.41 ; Tinea unguium B35.1 ; Pain in left toe(s) M79.675 ; Type 2 diabetes mellitus without complication E11.9 and Other hammer toe(s) (acquired), left foot M20.[address] [address] 02/18/2024 Marcus Kyung Assessments Encounter Date Diagnosis [...] Treatment Pending Test Test Name Order Date [id number] NAIL, 6 OR MORE 02/03/2020 [id number] NAIL, 6 OR MORE 05/07/2020 [id number] NAIL, 6 OR MORE 08/10/2020 14642-XORKAVD NAIL, 6 OR MORE 11/26/2020 31577-[id number] NAIL, 6 OR MORE 03/04/2021 41305-VHQUURO NAIL, 6 OR MORE 06/07/2021 [id number] NAIL, 6 OR MORE 09/06/2021 83577-[id number] NAIL, 6 OR MORE 01/20/2022 [id number] NAIL, 6 OR MORE 06/13/2022 [id number] NAIL, 6 OR MORE 09/19/2022 55538-[id number] NAIL, 6 OR MORE 12/26/2022 61019-ULZDRYY NAIL, 6 OR MORE 03/27/2023 21856-SKYSCWN NAIL, 6 OR MORE 06/26/2023 67258-VNUJOGR NAIL, 6 OR MORE 09/25/2023 08153-UVCPENY NAIL, 6 OR MORE 05/13/2024 73451-[id number] NAIL, 6 OR MORE 08/19/2024 91775-PIKNPCK NAIL, 6 OR MORE 11/25/2024 Next Appt Details Provider Name:Marcus Tracey , 03/17/2025 04:00:00 PM, [address] [place], [address], Insurance Providers Payer Name Payer Address Payer Phone Subscriber Number Group Number Insured Name Patient Relationship to Insured Coverage Start Date Coverage End Date Medicare National [employer]t [employer] [address] [facility] [place] [address] [id number] Gautam Simmons Self - patient is the insured Medical (General) History Medical History History ICD Code Anxiety Depression Gout Psychiatric disorder Chicken pox type II diabetes ptsd CAD (Cholesterol) Mild Retardation Surgical History Surgery Date(Month/Year) Hospitalization History Reason Date(Month/Year) [facility] ER sodium too high 12/23
--- OUTSIDE RECORDS SUMMARY | 2025-01-14 10:57 | XMS_ITS | Patient Health Record ---
Author Organization [facility] Address [address] [place] [address] Care Team Providers Care Welding Engineer Name Role Phone Yael (RETIRED) Trevor ALONZO Primary Care Provide Naveen Dixon Jr Unavailable [phone] Allergies Allergen (clinical drug ingredient) Drug/Non Drug Allergy documented on EMR Reaction Allergy Type Onset Date Status Penicillin Unknown Drug Allergy Active Results Component Value Reference Range Notes Glucose, Whole Blood Reviewed date:05/23/2024 09:24:07 PM Interpretation: Performing Lab:[facility], [address] [place] [address] Notes/Report: Glucose, Whole Blood 233 60-115 mg/dL METER # : [id number] Reason For Referral No Information Medications Medication [...] Problem Status W/U Status Risk Notes Problem 481808212 Colon cancer screening (Z12.11) Active confirmed Problem 889164244 penitentiary (curre nt) use of anticoagulants (Z79.01) Active confirmed Problem 109066701 Long-term curren t use of high risk medication other than anticoagulant (Z79.899) Active confirmed Vital Signs Blood pressure diastolic 00 mm Hg 05/01/2024 Height 5 ft 7 in in 05/01/2024 Blood pressure systolic 00 mm Hg 05/01/2024 Weight 171 lbs 05/01/2024 BMI 26.78 kg/m2 05/01/2024 Encounters Encounter Location Date Provider Diagnosis [facility] [place] [address], [place] [id number] 05/23/2024 Naveen Yang Jr Colon cancer screening Z12.11 [facility] [address] [place] [address] 05/01/2024 Naveen Yang Jr Colon cancer screening Z12.11 ; Long-term current use of high risk medication other than anticoagulant Z79.899 and penitentiary (current) use of anticoagulants Z79.01 [facility] [address] [place] [address] 05/14/2024 Naveen Yang Jr [facility] [address] [place] [address] 05/19/2024 Naveen Yang Jr Assessments Encounter Date [...] [place] [address] [place] [address] [id number] FERMIN PEREZ Self - patient is the insured MEDICAID OF [facility] [address] [place] [address] [id number] FERMIN PEREZ Self - patient is the insured Medical (General) History Medical History History ICD Code Diabetes mellitus type 2 Pulmonary embolus Schizoaffective disorder bipolar disorder Intellectual disability PTSD Hyperlipidemia Surgical History Surgery Date(Month/Year) Excision of right axillary lesion
--- OUTSIDE RECORDS SUMMARY | 2025-01-14 10:57 | XMS_ITS | Encounter Summary ---
Author Organization [employer] [facility] Address [address] [place] [address] Care Team Providers Care Leather Currier Name Role Phone Unavailable Primary Care Provider [...]
== END 2025-01-14 10:01 | disposition home or self-care (01) ==
LOC: HO.HMCHD 09:18
PROVIDERS: PCP Internal Medicine; Visit Provider Physician Assistant
DX: F25.9 Schizoaffective disorder, unspecified (principal); I26.92 Saddle embolus of pulmonary artery without acute cor pulmonale; E11.9 Type 2 diabetes mellitus without complications; Z79.4 Long term (current) use of insulin

== ENCOUNTER 2025-01-14 09:18 | Outpatient (REF) | payer MEDICARE, MEDICAID, SELFPAY ==
[2025-01-14 10:41] LABS: MANUAL DIFF FLAG NO
[2025-01-14 11:09] LABS: Hematocrit 39.4 % (42.0-52.0); Hemoglobin 13.3 g/dl (14.0-18.0); Imm Gran Abs Auto 0.04 X10*3/uL (0.00-0.03); Imm Gran Pct Auto 0.5 % (0.0-0.4); Lymphocytes Absolute Auto 2.0 X10*3/uL (1.2-4.9); Mean Corpuscular HGB Conc 33.8 g/dl (31.0-36.0); Mean Corpuscular Hemoglobin 28.4 pg (27.0-33.0); Mean Corpuscular Volume 84.0 fL (80.0-98.0); NRBC Abs Auto 0.000 X10*3/uL (0.0-0.012); NRBC Pct Auto 0.0 /100WBC (0.0-0.2); Platelet Count 218 X10*3/uL (160-400); Red Blood Count 4.69 X10*6/uL (4.60-5.80); White Blood Count 7.5 X10*3/uL (4.8-10.8)
[2025-01-14 12:03] LABS: Anion Gap 12 (12-20); Blood Urea Nitrogen 17 mg/dL (9-16); Calcium 9.8 mg/dL (8.4-10.2); Carbon Dioxide 28 mmol/L (22-29); Chloride 106 mmol/L (96-108); Estimated Glomerular Filt Rate > 60; Potassium 3.9 mmol/L (3.3-5.1); Sodium 142 mmol/L (135-145)
== END 2025-01-14 09:19 | disposition home or self-care (01) ==
LOC: HO.LAB 09:18
PROVIDERS: PCP Internal Medicine; Visit Provider Physician Assistant
DX: E87.0 Hyperosmolality and hypernatremia (principal); E11.9 Type 2 diabetes mellitus without complications; F25.9 Schizoaffective disorder, unspecified; I26.92 Saddle embolus of pulmonary artery without acute cor pulmonale; Z79.4 Long term (current) use of insulin; Z79.01 Long term (current) use of anticoagulants; Z79.84 Long term (current) use of oral hypoglycemic drugs; Z79.899 Other long term (current) drug therapy
CPT/HCPCS: 36415; 80048; 85025; 99212

== ENCOUNTER 2025-02-03 14:53 | Outpatient (AMB) | payer MEDICARE, MEDICAID, SELFPAY ==
--- OUTSIDE RECORDS SUMMARY | 2023-12-25 12:00 | XMS_ITS ---
Author Organization [facility] Address [address] [place] [address] Care Team Providers Care Saloon Keeper Name Role Phone Sagar, Kartik Primary Care Provider Marcus Tracey Unavailable [phone] Medications Medication SIG (Take, Route, Frequency, Duration) [...] Active Encounters Encounter Location Date Provider Diagnosis [facility] [place] [address] [place] [address] 12/25/2023 Marcus Tracey Plan Of Treatment Next Appt Details Provider Name:Marcus Tracey , 03/27/2025 02:00:00 PM, [address] [place], [address], Progress Notes * SIMMONSMoisesKarenOB:1975 ( 49 yo M)Acc No.[id number]:12/25/2023 Progress Note Patient: Gautam RODRIGUEZ Provider: Nneka Tracey DPM :1975 A ge:48 Y S ex:Male Date:12/25/2023 Address:[facility] , [address] [place], [place] [id number] Pcp:Reji Keith Subjective: * Chief Complaints: * * Medical [...] 0 12/25/2023 Generated for Luz burris/Danny/Nadine on: 1 05:48 PM EDT
--- OUTSIDE RECORDS SUMMARY | 2024-02-19 11:15 | XMS_ITS ---
Author Organization [facility] Address [address] [place] [address] Care Team Providers Care Retail Operations Manager Name Role Phone Reji Keith Primary Care Provider Marcus Tracey [phone] Encounters Encounter Location Date Provider Diagnosis [address] [address] 02/19/2024 Marcus Tracey Plan Of Treatment Next Appt Details Provider Name:aMrcus Tracey , 03/27/2025 02:00:00 PM, [address] [place] [address], [phone], Progress Notes * Moises SIMMONSinDOB:1975 ( 49 yo M)Acc No.[id number]:02/19/2024 Progress Note Patient: Gautam RODRIGUEZ Provider: Nneka Tracey DPM :1975 A ge:48 Y S ex:Male Date:02/19/2024 Address:[facility] , [address] [place], [place] [phone] Pcp:Reji Keith Subjective: * Chief Complaints: * [...] Date: 1 Generated for Luz Sterling on: 05:48 PM EDT
--- OUTSIDE RECORDS SUMMARY | 2024-05-23 07:40 | XMS_ITS ---
Author Organization [facility] Address [address] [place] [phone] Care Team Providers Care File System Installer Name Role Phone Yael (RETIRED) Trevor ALONZO Primary Care Provide r Naveen Escobar Jr REASON FOR VISIT screening Encounters Encounter Location Date Provider Diagnosis [facility] [place] [address] [place] [phone] 05/23/2024 Naveen Yang Jr Colon cancer screening Z12.11 Assessments Encounter Date Diagnosis (ICD Code) Assessment Notes Treatment Notes Treatment Clinical Notes Section Notes 05/23/2024 Colon cancer screening (ICD-10 - Z12.11) Plan Of Treatment No Information Progress Notes * ANA FERMIN ADOB:1975 (49 yo M)Acc No.[id number]:05/23/2024 COLON WITH MAC Patient: FERMIN RODRIGUEZ Provider: Twan Yang MD :1975 A ge:48 Y S ex:Male Date:05/23/2024 Address:[address] [place], [place] [phone] Pcp:Trevor Conley (RETIRED )MD Subjective: * Chief [...] 0 05/23/2024 Generated for Luz burris/Danny/Nadine on: 05:48 PM EDT
--- NOTE | 2025-02-03 15:57 | MHC.AMDMED ---
Intake Intake Visit Reasons: 60 mins Supervisor Lending Activities Required: No Accompanied by: Mother Allergies mite-Dermatophagoides farinae, mary (dust mite - [place]) Allergy (Unknown, Verified 01/14/25 09:22) Itching Penicillins (PENICILLINS) Allergy (Unknown, Verified 01/14/25 09:22) Unknown pollen extracts Allergy (Unknown, Verified 01/14/25 09:22) Itching HPI Comprehensive Diabetes Asmnt Most Recent Diabetes Results: Hemoglobin A1c 6.4 % 01/16/20 Microalb/Creat Ratio, (<30) 69.8 ug/mg cr H 03/17/24 Cholesterol, (<200) 210 mg/dL H 01/05/25 HDL Cholesterol, (>40) 48 mg/dL 01/05/25 Triglycerides, (<150) 327 mg/dL H 01/05/25 Creatinine, (0.5-1.4) 1.13 mg/dL 01/14/25 BUN, (9-16) 17 mg/dL H 01/14/25 Sodium, (135-145) 142 mmol/L 01/14/25 Potassium, (3.3-5.1) 3.9 mmol/L 01/14/25 Chloride, (96-108) 106 mmol/L 01/14/25 Carbon Dioxide, (22-29) 28 mmol/L 01/14/25 Calcium, (8.4-10.2) 9.8 mg/dL 01/14/25 AST, (5-37) 28 U/L 01/06/25 ALT, (0-40) 45 U/L H 01/06/25 Total Protein, (6.5-8.0) 7.6 g/dL 01/06/25 Albumin, (3.5-5.0) 4.5 g/dL 01/06/25 [facility] Medical History 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 Gout Hyperlipidemia Bipolar 1 disorder Diabetes insipidus High cholesterol Anxiety PTSD (post-traumatic stress disorder) Schizo affective schizophrenia Surgical History History of colonoscopy (~05/23/24) Hx of tooth extraction Hx of excision of mass Family History Mother Fibromyalgia Post traumatic stress disorder (PTSD) Anxiety Osteopenia High cholesterol Anemia Cerebellar ataxia Social History Household Members: Caregiver Household Members Other:: Jarvis and Amarilis valdes Housing: Other Housing Other:: custodial Do you presently have visiting nurse or other home services: Yes Alcohol intake: never Patient Tobacco Use Status: Never used Tobacco e-Cigarette/Vaping Use: Never Used Substance Use Type: Caffiene Advance Directives Date on File: 07/05/23 service: No Current occupational status: disabled Sexual orientation: Don't Know Cognitive needs: No Hearing needs: No Vision needs: No Assessment & Plan Assessment & Plan (1) Insulin dependent type 2 diabetes mellitus: Code(s): E11.9 - Type 2 diabetes mellitus without complications; Z79.4 - rat exterminator (current) use of insulin Plan: Personal Continuous Glucose Monitor: Patients CGM information reviewed, Pt uses [employer]+ with [place] A1c at last visit with Dr. Blanchard 7.2% on 01/01/2025 At that visit patient is Lantus was reduced, and lunchtime scale was reduced for hypoglycemia Patient continues to have overnight and post lunch hypoglycemia Patient at visit with his mother See changes to patient's insulin plan below: Plan: -New dosing of insulin Reduce Lantus from 20 units to 16 units Humalog for breakfast continue 80-100 6 units 101-150 8 units 151-200 10 units 201-250 12 units 251-300 14 units 301-350 16 units Over 350 18 units Lunch continue 80-100 4 units 101-150 4 units 151-200 6 units 201-250 8 units 251-300 10 units 301-350 12 units Over 350 14 units Over 350 dip for ketones if moderate go to ER Humalog reduced for supper 80-100 2 units 101-150 4 units 151-200 6 units 201-250 8units 251-300 10 units 301-350 12 units Over 350 12 units Left message at patient's day program to verify they are using current NovoLog sliding scale Reviewed the following information: Signs and symptoms of low blood sugar (happen quickly) Each person's reaction to low blood sugar is different. Learn your own signs and symptoms of when your blood sugar is low. Taking time to write these symptoms down may help you learn your own symptoms of when your blood sugar is low. From milder, more common indicators to most severe, signs and symptoms of low blood sugar include: Feeling shaky Being nervous or anxious Sweating, chills and clamminess Irritability or impatience Confusion Fast heartbeat Feeling lightheaded or dizzy Hunger Nausea Color draining from the skin (pallor) Feeling Sleepy Feeling weak or having no energy Blurred/impaired vision Tingling or numbness in the lips, tongue, or cheeks Headaches Coordination problems, clumsiness Hypoglycemia or blood glucose under 70 mg/dL use the rule of 15's: If you have your blood glucose meter test your blood glucose, if you do not have your meter still follow below instruction: Keep quick-sugar foods with you at all times.? Take 15 grams of fast acting carbohydrates. Examples are 4 ounces of fruit juice or regular soda pop, 8 ounces fat-free milk, 1 tablespoon of table sugar, honey or corn syrup, jam, one miniature box of raisins, 7-8 gumdrops or Life Savers candy, 4 glucose tablets, and glucose gel.? Retest blood glucose in 15 minutes, if blood glucose is still under 80 mg/dL,repeat rule of 15's. If blood glucose is under 50, take 30 grams of fast acting carbohydrates If you are having hypoglycemia, or insulin reaction, more that a few times a week, call MD or life educator F/U BG check Patient given copy of new sliding scale, new sliding scale scale to patient's day program Patient also given hypoglycemia handout Patient Instructions: Plan: -New dosing of insulin Reduce Lantus from 20 units to 16 units Humalog for breakfast continue 80-100 6 units 101-150 8 units 151-200 10 units 201-250 12 units 251-300 14 units 301-350 16 units Over 350 18 units Lunch continue 80-100 4 units 101-150 4 units 151-200 6 units 201-250 8 units 251-300 10 units 301-350 12 units Over 350 14 units Over 350 dip for ketones if moderate go to ER Humalog reduced for supper 80-100 2 units 101-150 4 units 151-200 6 units 201-250 8units 251-300 10 units 301-350 12 units Over 350 12 units Coding Level of Care Code Est Pt Level 1 (88068) Diagnoses Insulin dependent type 2 diabetes mellitus E11.9; Z79.4
--- OUTSIDE RECORDS SUMMARY | 2025-02-03 17:48 | XMS_ITS | Clinical Summary ---
Author Organization [facility] [employer] Address [address] [facility] 7[address] [place] [address] Care Team Providers Care Personnel Interviewer Name Role Phone Unavailable Primary Care Provider [...] Most Recently Relevant to Health Maintenance Insurance [facility] MEDICAID STAND ADULT
--- OUTSIDE RECORDS SUMMARY | 2025-02-03 17:48 | XMS_ITS | Patient Health Record ---
Author Organization [facility] Address [address] [place] [address] Care Team Providers Care Turf Grower Name Role Phone Reji Keith Primary Care Provider Marcus Tracey [phone] Allergies Allergen (clinical drug ingredient) Drug/Non Drug [...] Problem Acquired hammer toe of right foot (56892432025469 05) Other hammer toe(s) (acquired), right foot (M20.41) Active confirmed Response to treatment,I mprovement Problem Acquired hammer toe of left foot (29327386848513 03) Other hammer toe(s) (acquired), left foot (M20.42) Active confirmed Response to treatment,I mprovement Problem Type II diabetes mellitus without complication (154917016) Type 2 diabetes mellitus without complication (E11.9) Active confirmed Vital Signs Blood pressure diastolic 65 mm Hg 11/25/2024 Height 5ft 6in in 11/25/2024 Blood pressure systolic 120 mm Hg 11/25/2024 Weight 166 lbs 11/25/2024 BMI 26.79 kg/m2 11/25/2024 Procedures Procedure Date Ordered Date Performed Result Body Sit e 74823-HUWFBVL NAIL, 6 OR MORE 05/13/2024 N/A 32530-JVFYDLC NAIL, 6 OR MORE 08/19/2024 N/A 17943-[id number] NAIL, 6 OR MORE 11/25/2024 N/A Encounters Encounter Location Date Provider Diagnosis [address] [address] 05/13/2024 Marcus Kyung Pain in right toe(s) M79.674 ; Tinea unguium B35.1 ; Pain in left toe(s) M79.675 ; Type 2 diabetes mellitus without complication E11.9 ; Other hammer toe(s) (acquired), right foot M20.41 and Other hammer toe(s) (acquired), left foot M20.[address] [address] 08/19/2024 Marcus Kyung Pain in right toe(s) M79.674 ; Tinea unguium B35.1 ; Pain in left toe(s) M79.675 and Type 2 diabetes mellitus without complication E11.[address] [address] 11/25/2024 Marcus Kyung Pain in right toe(s) M79.674 ; Other hammer toe(s) (acquired), right foot M20.41 ; Tinea unguium B35.1 ; Pain in left toe(s) M79.675 ; Type 2 diabetes mellitus without complication E11.9 and Other hammer toe(s) (acquired), left foot M20.[address] [address] 02/18/2024 Marcus Kyung Assessments Encounter Date Diagnosis [...] Treatment Pending Test Test Name Order Date [id number] NAIL, 6 OR MORE 02/03/2020 62663-[id number] NAIL, 6 OR MORE 05/07/2020 68548-[id number] NAIL, 6 OR MORE 08/10/2020 15511-QTYDJSI NAIL, 6 OR MORE 11/26/2020 [id number] NAIL, 6 OR MORE 03/04/2021 44856-[id number] NAIL, 6 OR MORE 06/07/2021 20336-[id number] NAIL, 6 OR MORE 09/06/2021 94569-[id number] NAIL, 6 OR MORE 01/20/2022 40785-[id number] NAIL, 6 OR MORE 06/13/2022 23442-[id number] NAIL, 6 OR MORE 09/19/2022 45421-[id number] NAIL, 6 OR MORE 12/26/2022 09746-[id number] NAIL, 6 OR MORE 03/27/2023 15904-[id number] NAIL, 6 OR MORE 06/26/2023 77968-[id number] NAIL, 6 OR MORE 09/25/2023 42706-[id number] NAIL, 6 OR MORE 05/13/2024 02316-[id number] NAIL, 6 OR MORE 08/19/2024 52709-[id number] NAIL, 6 OR MORE 11/25/2024 Next Appt Details Provider Name:Marcus Shima Tracey , 03/27/2025 02:00:00 PM, [address] [place], [address], Insurance Providers Payer Name Payer Address Payer Phone Subscriber Number Group Number Insured Name Patient Relationship to Insured Coverage Start Date Coverage End Date Medicare National Govt Svcs [employer] [address] [place] [address] [id number] Gautam Simmons Self - patient is the insured Medical (General) History Medical History History ICD Code Anxiety Depression Gout Psychiatric disorder Chicken pox type II diabetes ptsd CAD (Cholesterol) Mild Retardation Surgical History Surgery Date(Month/Year) Hospitalization History Reason Date(Month/Year) [facility] ER sodium too high 12/23
--- OUTSIDE RECORDS SUMMARY | 2025-02-03 17:49 | XMS_ITS | Encounter Summary ---
Author Organization [employer] [facility] Address [address] [facility] 7t [place] [address] Care Team Providers Care Site Physician Name Role Phone Unavailable Primary Care Provider [...]
--- OUTSIDE RECORDS SUMMARY | 2025-02-03 17:49 | XMS_ITS | Patient Health Record ---
Author Organization [facility] Address [address] [place] [address] Care Team Providers Care Senior Biostatistician Name Role Phone Yael (RETIRED) Trevor ALONZO Primary Care Provide Naveen Dixon Jr Unavailable Allergies Allergen (clinical drug ingredient) Drug/Non Drug Allergy documented on EMR Reaction Allergy Type Onset Date Status Penicillin Unknown Drug Allergy Active Results Component Value Reference Range Notes Glucose, Whole Blood Reviewed date:05/23/2024 09:24:07 PM Interpretation: Performing Lab:[facility], [address] [place] [id number] Notes/Report: Glucose, Whole Blood 233 60-115 mg/dL METER # : [id number] Reason For Referral No Information Medications Medication SIG (Take, Route, Frequency, Duration) Notes Start Date End Date Status D3-1000 25 MCG (1000 UT) TAKE 1 CAPSULE BY MOUTH EVERY DAY Oral; Duration: 90 Active cloZAPine 100 MG TAKE 1/2 TABLET ORAL LY IN THE MORNING AND 3 TABS AT BEDTIME. Oral; Duration: 30 Active Allopurinol 100 MG TAKE 1 TABLET BY JANET TH EVERY DAY Oral; Duration: 90 Active Eliquis 2.5 MG TAKE 1 TABLET BY JANET TH TWICE A DAY Oral; Duration: 90 Active Fiber Active Vitamin C 500 MG TAKE 1 TABLET BY JANET TH EVERY DAY Oral; Duration: 90 Active clonazePAM 0.5 MG TAKE 1 TABLET BY JANET TH TWICE A DAY Oral; Duration: 30 Active Flonase Allergy Relief 50 MCG/ACT 1 spray in each nostril Nasally Twice a day; Duration: 30 day(s) 05/01/2024 Active metFORMIN HCl 1000 MG TAKE 1 TABLET BY M OUTH TWICE A DAY DIRECTED Oral; Duration: 90 Active Simvastatin 80 MG TAKE 1 TABLET BY JANET TH EVERY DAY Oral; Duration: 90 Active Benztropine Mesylate 1 MG TAKE 1 TABLET BY MOUTH TWICE A DAY Oral; Duration: 30 Active Lantus SoloStar 100 UNIT/ML INJECT 15 UNITS (0.15 ML) SUBCUTANEOUSLY DAILY IN THE MORNING Subcutaneous; Duration: 90 Unknown Daily-Vivien Multivitamin - TAKE 1 TABLET BY MOUTH EVERY DAY Oral; Duration: 90 Active Insulin Lispro (1 Unit Dial) 100 UNIT/ML PLEASE SEE ATTACHED FOR DETAILED DIRECTIONS Subcutaneous; Duration: 30 Active MiraLax (colon prep) 17 GM/SCOOP mixed with Gatorade or Crystal Light Orally begin at 5:00 p.m. the day before the procedure; Duration: 1 day 05/01/2024 Active Haloperidol 5 MG TAKE 1/2 TAB BY MOUT H IN THE MORNING AND 1 TAB AT BEDTIME. Oral; Duration: 30 Active Sertraline HCl 100 MG TAKE 1 AND 1/2 TAB LETS DAILY BY MOUTH DIRECTED Oral; Duration: 30 Active Lantus SoloStar 100 UNIT/ML INJECT 15 UNITS (0.15 ML) SUBCUTANEOUSLY DAILY IN THE MORNING Subcutaneous; Duration: 90 Not-Taking Social History Tobacco Use: Social [...] Problem Status W/U Status Risk Notes Problem Colon cancer screening (363175346) Colon cancer screening (Z12.11) Active confirmed Problem Long-term current use of anticoagulant (193840773) detention (current) use of anticoagulants (Z79.01) Active confirmed Problem Long-term current use of drug therapy (233106549) Long-term current use of high risk medication other than anticoagulant (Z79.899) Active confirmed Vital Signs Blood pressure diastolic 00 mm Hg 05/01/2024 Height 5 ft 7 in in 05/01/2024 Blood pressure systolic 00 mm Hg 05/01/2024 Weight 171 lbs 05/01/2024 BMI 26.78 kg/m2 05/01/2024 Encounters Encounter Location Date Provider Diagnosis [facility] Outpatient [address] [place] [id number] 05/23/2024 Naveen Yang Jr Colon cancer screening Z12.11 [facility] [address] [address] 05/01/2024 Naveen Yang Jr Colon cancer screening Z12.11 ; Long-term current use of high risk medication other than anticoagulant Z79.899 and ferry terminal supervisor (current) use of anticoagulants Z79.01 [facility] [address] [place] [address] [address] 05/14/2024 Naveen Yang Jr [facility] [address] [place] [address] [address] 05/19/2024 Naveen Yang Jr Assessments Encounter Date [...] insulin the night before the prep. 05/01/2024 detention (current) use of anticoagulants (ICD-10 - Z79.01) [...] Date MEDICARE OF [place] [address] [place] [address] [id number] FERMIN PEREZ Self - patient is the insured [facility] [address] [place] [address] [id number] FERMIN PEREZ Self - patient is the insured Medical (General) History Medical History History ICD Code Diabetes mellitus type 2 Pulmonary embolus Schizoaffective disorder bipolar disorder Intellectual disability PTSD Hyperlipidemia Surgical History Surgery Date(Month/Year) Excision of right axillary lesion
== END 2025-02-03 16:02 | disposition home or self-care (01) ==
LOC: HO.ENCR 14:54
PROVIDERS: PCP Internal Medicine; Visit Provider Registered Nurse Diabetes Educator
DX: E11.9 Type 2 diabetes mellitus without complications (principal); Z79.4 Long term (current) use of insulin

== ENCOUNTER → 2025-02-03 14:53 | Outpatient (BNVA) | payer MEDICARE, MEDICAID, SELFPAY | PROVIDERS: PCP Internal Medicine; Visit Provider Registered Nurse Diabetes Educator | DX: E11.9 Type 2 diabetes mellitus without complications (principal); Z79.4 Long term (current) use of insulin | CPT/HCPCS: 99211 ==

== ENCOUNTER 2025-02-09 07:09 | Outpatient (REF) | payer MEDICARE, MEDICAID, SELFPAY ==
--- OUTSIDE RECORDS SUMMARY | 2023-12-25 12:00 | XMS_ITS ---
Author Organization [facility] Address [address] [place] [address] Care Team Providers Care Dry Pan Operator Name Role Phone Sagar, Kartik Primary Care Provider [phone] Marcus Tracey Unavailable [phone] Medications Medication SIG (Take, Route, Frequency, Duration) [...] Active Encounters Encounter Location Date Provider Diagnosis [facility] [place] [address] [place] [address] 12/25/2023 Marcus Tracey Plan Of Treatment Next Appt Details Provider Name:Marcus Tracey , 03/27/2025 02:00:00 PM, [address] [place], [address], Progress Notes * SIMMONSMoisesKarenOB:1975 ( 49 yo M)Acc No.[id number]:12/25/2023 Progress Note Patient: Gautam RODRIGUEZ Provider: Nneka Tracey DPM :1975 A ge:48 Y S ex:Male Date:12/25/2023 Address:[facility] , [address] [place], [place] [phone] Pcp:Reji Keith Subjective: * Chief Complaints: * [...] 12/25/2023 Generated for Luz burris/Danny/Nadine on: 1 07:20 AM EDT
--- OUTSIDE RECORDS SUMMARY | 2024-02-19 11:15 | XMS_ITS ---
Author Organization [facility] Address [address] [place] [address] Care Team Providers Care Furniture Cleaner Name Role Phone Reji Keith Primary Care Provider [phone] Marcus Tracey [phone] Encounters Encounter Location Date Provider Diagnosis [address] [address] 02/19/2024 Marcus Tracey Plan Of Treatment Next Appt Details Provider Name:Marcus Tracey , 03/27/2025 02:00:00 PM, [address] [place] [address], [address], Progress Notes * Moises SIMMONSinDOB:1975 ( 49 yo M)Acc No.[id number]:02/19/2024 Progress Note Patient: Gautam RODRIGUEZ Provider: Nneka Tracey DPM :1975 A ge:48 Y S ex:Male Date:02/19/2024 Address:[facility] , [address] [place], [place] [phone] Pcp:Reji Keith Subjective: * Chief Complaints: * * Medical History: Objective: * Vitals: Assessment: Plan: * Treatment: * Images: * The named appointment provid er may or may not be the originator of this progress note, and it is not deemed complete until electronically signed by the appointment provider. Sign off status: Pending * Provider: Nneka Tracey DPM Date: Generated for Luz Sterling on: 07:20 AM EDT
--- OUTSIDE RECORDS SUMMARY | 2024-05-23 07:40 | XMS_ITS ---
Author Organization [facility] Address [address] [place] [phone] Care Team Providers Care Conservation Of Resources Commissioner Name Role Phone Yael (RETIRED) Trevor ALONZO Primary Care Provide r Naveen Escobar Jr REASON FOR VISIT screening Encounters Encounter Location Date Provider Diagnosis [facility] [place] [address] [place] [phone] 05/23/2024 Naveen Yang Jr Colon cancer screening Z12.11 Assessments Encounter Date Diagnosis (ICD Code) Assessment Notes Treatment Notes Treatment Clinical Notes Section Notes 05/23/2024 Colon cancer screening (ICD-10 - Z12.11) Plan Of Treatment No Information Progress Notes * ANA FERMIN ADOB:1975 (49 yo M)Acc No.[id number]:05/23/2024 COLON WITH MAC Patient: FERMIN RODRIGUEZ Provider: Twan Yang MD :1975 A ge:48 Y S ex:Male Date:05/23/2024 Address:[address] [place], [place] [phone] Pcp:Trevor Conley (RETIRED )MD Subjective: * Chief [...] 0 05/23/2024 Generated for Luz burris/Danny/Nadine on: 07:20 AM EDT
--- OUTSIDE RECORDS SUMMARY | 2025-02-09 07:21 | XMS_ITS | Encounter Summary ---
Author Organization [employer] [facility] Address [address] [facility] 7t [place] [address] Care Team Providers Care Sales Representative Church Furniture Name Role Phone Unavailable Primary Care Provider [...]
--- OUTSIDE RECORDS SUMMARY | 2025-02-09 07:21 | XMS_ITS | Clinical Summary ---
Author Organization [employer] Address [address] [facility] 7t [place] [address] Care Team Providers Care Transcript Evaluator Name Role Phone Unavailable Primary Care Provider [...] Most Recently Relevant to Health Maintenance Insurance [facility] MEDICAID STAND ADULT
--- OUTSIDE RECORDS SUMMARY | 2025-02-09 07:21 | XMS_ITS | Patient Health Record ---
Author Organization [facility] Address [address] [place] [address] Care Team Providers Care E Learning Specialist Name Role Phone Yael (RETIRED) Trevor ALONZO Primary Care Provide Naveen Dixon Jr Unavailable [phone] Allergies Allergen (clinical drug ingredient) Drug/Non Drug Allergy documented on EMR Reaction Allergy Type Onset Date Status Penicillin Unknown Drug Allergy Active Results Component Value Reference Range Notes Glucose, Whole Blood Reviewed date:05/23/2024 09:24:07 PM Interpretation: Performing Lab:[facility], [address] [place] [phone] Notes/Report: Glucose, Whole Blood 233 60-115 mg/dL METER # : [id number] Reason For Referral No Information Medications Medication [...] Status Risk Notes Problem Colon cancer screening (713135902) Colon cancer screening (Z12.11) Active confirmed Problem Long-term current use of anticoagulant (339980104) nursing home (current) use of anticoagulants (Z79.01) Active confirmed Problem Long-term current use of drug therapy (011753585) Long-term current use of high risk medication other than anticoagulant (Z79.899) Active confirmed Vital Signs Blood pressure diastolic 00 mm Hg 05/01/2024 Height 5 ft 7 in in 05/01/2024 Blood pressure systolic 00 mm Hg 05/01/2024 Weight 171 lbs 05/01/2024 BMI 26.78 kg/m2 05/01/2024 Encounters Encounter Location Date Provider Diagnosis [facility] [place] [address] [place] [id number] 05/23/2024 Naveen Yang Jr Colon cancer screening Z12.11 [facility] [address] [address] 05/01/2024 Naveen Yang Jr Colon cancer screening Z12.11 ; Long-term current use of high risk medication other than anticoagulant Z79.899 and terminologist (current) use of anticoagulants Z79.01 [facility] [address] [place] [address] [address] 05/14/2024 Naveen Yang Jr [facility] [address] [place] [address] [address] 05/19/2024 Naveen Yang Jr Assessments Encounter Date [...] insulin the night before the prep. 05/01/2024 nursing home (current) use of anticoagulants (ICD-10 - Z79.01) [...] OF [place] [address] [place] [address] [id number] FERMIN PEREZ Self - patient is the insured [facility] [address] [place] [address] [id number] FERMIN PEREZ Self - patient is the insured Medical (General) History Medical History History ICD Code Diabetes mellitus type 2 Pulmonary embolus Schizoaffective disorder bipolar disorder Intellectual disability PTSD Hyperlipidemia Surgical History Surgery Date(Month/Year) Excision of right axillary lesion
--- OUTSIDE RECORDS SUMMARY | 2025-02-09 07:21 | XMS_ITS | Patient Health Record ---
Author Organization [facility] Address [address] [place] [address] Care Team Providers Care Complex Care Nurse Practitioner Name Role Phone Reji Keith Primary Care Provider [phone] Marcus Tracey [phone] Allergies Allergen (clinical drug ingredient) Drug/Non Drug [...] Problem Acquired hammer toe of right foot (00673723146909 05) Other hammer toe(s) (acquired), right foot (M20.41) Active confirmed Response to treatment,I mprovement Problem Acquired hammer toe of left foot (79221447650185 03) Other hammer toe(s) (acquired), left foot (M20.42) Active confirmed Response to treatment,I mprovement Problem Type II diabetes mellitus without complication (254699689) Type 2 diabetes mellitus without complication (E11.9) Active confirmed Vital Signs Blood pressure diastolic 65 mm Hg 11/25/2024 Height 5ft 6in in 11/25/2024 Blood pressure systolic 120 mm Hg 11/25/2024 Weight 166 lbs 11/25/2024 BMI 26.79 kg/m2 11/25/2024 Procedures Procedure Date Ordered Date Performed Result Body Sit e 80363-GMIFKUS NAIL, 6 OR MORE 05/13/2024 N/A 26859-ZLYGDRI NAIL, 6 OR MORE 08/19/2024 N/A 74909-GJOHQBB NAIL, 6 OR MORE 11/25/2024 N/A Encounters Encounter Location Date Provider Diagnosis [address] [address] 05/13/2024 Marcus Kyung Pain in right toe(s) M79.674 ; Tinea unguium B35.1 ; Pain in left toe(s) M79.675 ; Type 2 diabetes mellitus without complication E11.9 ; Other hammer toe(s) (acquired), right foot M20.41 and Other hammer toe(s) (acquired), left foot M20.[address] [address] 08/19/2024 Marcus Kyung Pain in right toe(s) M79.674 ; Tinea unguium B35.1 ; Pain in left toe(s) M79.675 and Type 2 diabetes mellitus without complication E11.[address] [address] 11/25/2024 Marcus Kyung Pain in right toe(s) M79.674 ; Other hammer toe(s) (acquired), right foot M20.41 ; Tinea unguium B35.1 ; Pain in left toe(s) M79.675 ; Type 2 diabetes mellitus without complication E11.9 and Other hammer toe(s) (acquired), left foot M20.[address] [address] 02/18/2024 Marcus Kyung Assessments Encounter Date Diagnosis [...] Treatment Pending Test Test Name Order Date 74391-[id number] NAIL, 6 OR MORE 02/03/2020 84966-IGUJYPQ NAIL, 6 OR MORE 05/07/2020 85945-ZKQPXGJ NAIL, 6 OR MORE 08/10/2020 09674-GGWWZCX NAIL, 6 OR MORE 11/26/2020 93362-JEQMBJB NAIL, 6 OR MORE 03/04/2021 06712-DCECERD NAIL, 6 OR MORE 06/07/2021 16541-MARWWIW NAIL, 6 OR MORE 09/06/2021 56102-DEWOBTZ NAIL, 6 OR MORE 01/20/2022 62207-PSIQKNP NAIL, 6 OR MORE 06/13/2022 03196-XDJVGCH NAIL, 6 OR MORE 09/19/2022 82147-WYNCQHU NAIL, 6 OR MORE 12/26/2022 81634-ZNSTEST NAIL, 6 OR MORE 03/27/2023 87621-ZQBWBIK NAIL, 6 OR MORE 06/26/2023 83138-QZHXXRK NAIL, 6 OR MORE 09/25/2023 19950-RVCBDRK NAIL, 6 OR MORE 05/13/2024 52902-PEZIXIE NAIL, 6 OR MORE 08/19/2024 65813-OUUYDMI NAIL, 6 OR MORE 11/25/2024 Next Appt Details Provider Name:Marcus Shima Tracey , 03/27/2025 02:00:00 PM, [address] [place], [address], Insurance Providers Payer Name Payer Address Payer Phone Subscriber Number Group Number Insured Name Patient Relationship to Insured Coverage Start Date Coverage End Date Medicare National [employer] [address] [place] [address] [id number] Gautam Simmons Self - patient is the insured Medical (General) History Medical History History ICD Code Anxiety Depression Gout Psychiatric disorder Chicken pox type II diabetes ptsd CAD (Cholesterol) Mild Retardation Surgical History Surgery Date(Month/Year) Hospitalization History Reason Date(Month/Year) [facility] sodium too high 12/23
[2025-02-09 10:31] LABS: MANUAL DIFF FLAG NO
[2025-02-09 10:38] LABS: Hematocrit 41.4 % (42.0-52.0); Hemoglobin 13.4 g/dl (14.0-18.0); Imm Gran Abs Auto 0.02 X10*3/uL (0.00-0.03); Imm Gran Pct Auto 0.3 % (0.0-0.4); Lymphocytes Absolute Auto 2.8 X10*3/uL (1.2-4.9); Mean Corpuscular HGB Conc 32.4 g/dl (31.0-36.0); Mean Corpuscular Hemoglobin 28.0 pg (27.0-33.0); Mean Corpuscular Volume 86.6 fL (80.0-98.0); NRBC Abs Auto 0.000 X10*3/uL (0.0-0.012); NRBC Pct Auto 0.0 /100WBC (0.0-0.2); Platelet Count 207 X10*3/uL (160-400); Red Blood Count 4.78 X10*6/uL (4.60-5.80); White Blood Count 7.9 X10*3/uL (4.8-10.8)
== END 2025-02-09 07:10 | disposition home or self-care (01) ==
LOC: HO.10HDL 07:09
PROVIDERS: Visit Provider Psychiatry & Neurology Psychiatry
DX: Z79.899 Other long term (current) drug therapy (principal)
CPT/HCPCS: 36415; 85025

== ENCOUNTER 2025-04-17 15:55 | Outpatient (REF) | payer MEDICARE, MEDICAID, SELFPAY ==
--- OUTSIDE RECORDS SUMMARY | 2023-12-25 11:00 | XMS_ITS ---
Author Organization [facility] Address [address] [place] [address] Care Team Providers Care Enamel Applier Name Role Phone Moore, Charity Primary Care Provider UnavailMarcus Wong Unavailable [phone] Medications Medication SIG (Take, Route, Frequency, Duration) Notes Start Date End Date Status Ascorbic Acid 500 MG 1 tablet Orally Onc e a day Active Benztropine Mesylate 1 MG Orally Twice a day Active Eliquis Active clonazePAM 0.5 MG 1 tablet at bedtime Orally Twice a day Active Cogentin 1mg 1tab Twice a day Active Jardiance 25 MG 1 tablet Orally Once a day; Duration: 30 day(s) Active Warfarin Sodium 2.5 MG 1 tablet Orally O nce a day; Duration: 30 day(s) Not-Rodrigo ing Extra Depth Orthopedic Shoes (1 Pair) with Customized Heat Molded Multidensity Innersoles (3 Pair) as directed Dx: NIDDM (E11.9), Hammertoe Foot Deformity (M20.41,M20.42), Preulcerative Skin Lesion(s) (L85.1) Active Vitamin D 25 MCG (1000 UT) Orally Once a day Active Ammonium Lactate 12 % 1 application Exte rnally Twice a day; Duration: 30 days Active Sertraline HCl 100 MG 1.5 tablet Orally Once a day Active Simvastatin 80 MG 1 tablet in the even ing Orally Once a day; Duration: 30 day(s) Active metFORMIN HCl 1000 MG 1 tablet with a me al Orally Once a day; Duration: 30 day(s) Active Multi Vitamin Once a day Activ e Topiramate 3 tab Active glipiZIDE XL 2.5 MG 1 tablet with breakf ast Orally Once a day; Duration: 30 day(s) Active Haldol 5mg 1 tab once a day Ac tive Fiber Active Flonase Active Encounters Encounter Location Date Provider Diagnosis [facility] [place] [address] [place] [address] 12/25/2023 Marcus Tracey Plan Of Treatment Next Appt Details Provider Name:Marcus Tracey , 07/10/2025 02:00:00 PM, [address] [place], [address], Progress Notes * Moises SIMMONSKarenOB:1975 ( 49 yo M)Acc No.[id number]:12/25/2023 Progress Note Patient: Gautam RODRIGUEZ Provider: Nneka Tracey DPM :1975 A ge:48 Y S ex:Male Date:12/25/2023 Address:[facility] [address] , [address] [place], [place] [id number] Pcp:Charity Moore Subjective: * Chief Complaints: * * Medical History: * Medications: T aking Jardiance 25 MG Tablet 1 tablet Orally Once a day , Taking Ascorbic Acid 500 MG Tablet 1 tablet Orally Once a day , Taking Benztropine Mesylate 1 MG Tablet Orally Twice a day , Taking clonazePAM 0.5 MG Tablet 1 tablet at bedtime Orally Twice a day , Taking Cogentin 1mg 1tab Twice a day , Taking Eliquis , Taking Fiber , Taking Flonase , Taking glipiZIDE XL 2.5 MG Tablet Extended Release 24 Hour 1 tablet with breakfast Orally Once a day , Taking Haldol 5mg 1 tab once a day , Taking metFORMIN HCl 1000 MG Tablet 1 tablet with a meal Orally Once a day , Taking Multi Vitamin Once a day , Taking Sertraline HCl 100 MG Tablet 1.5 tablet Orally Once a day , Taking Simvastatin 80 MG Tablet 1 tablet in the evening Orally Once a day , Taking Topiramate 3 tab , Taking Vitamin D 25 MCG (1000 UT) Tablet Orally Once a day , Taking Ammonium Lactate 12 % Cream 1 application Externally Twice a day , Taking Extra Depth Orthopedic Shoes (1 Pair) with Customized Heat Molded Multidensity Innersoles (3 Pair) as directed Dx: NIDDM (E11.9), Hammertoe Foot Deformity (M20.41,M20.42), Preulcerative Skin Lesion(s) (L85.1) , Not-Taking/PRN Warfarin Sodium 2.5 MG Tablet 1 tablet Orally Once a day Objective: * Vitals: Assessment: Plan: * Treatment: * Images: * The named appointment provid er may or may not be the originator of this progress note, and it is not deemed complete until electronically signed by the appointment provider. Sign off status: Pending * Provider: Nneka Tracey DPM Date: 0 12/25/2023 Generated for Luz burris/Danny/Nadine on: 06/18/2024 04:00 PM EST
--- OUTSIDE RECORDS SUMMARY | 2024-02-19 10:15 | XMS_ITS ---
Author Organization [facility] Address [address] [place] [address] Care Team Providers Care Conservation Agent Name Role Phone Charity Moore Primary Care Provider UnavailMarcus Wong Unavailable [phone] Encounters Encounter Location Date Provider Diagnosis [facility] [address] [place] [address] 02/19/2024 Marcus Tracey Plan Of Treatment Next Appt Details Provider Name:Marcus Tracey , 07/10/2025 02:00:00 PM, [address] [place] [address], [address], Progress Notes * ANAMoisesKarenOB:1975 ( 49 yo M)Acc No.[id number]:02/19/2024 Progress Note Patient: Gautam RODRIGUEZ Provider: Nneka Tracey DPM :1975 A ge:48 Y S ex:Male Date:02/19/2024 Address:[facility] , [address] [place], [place] [phone] Pcp:Charity Moore Subjective: * Chief Complaints: * * Medical History: Objective: * Vitals: Assessment: Plan: * Treatment: * Images: * The named appointment provid er may or may not be the originator of this progress note, and it is not deemed complete until electronically signed by the appointment provider. Sign off status: Pending * Provider: Nneka Tracey DPM Date: 1 Generated for Luz burris/Danny/Nadine on: 06/18/2024 04:00 PM EST
--- OUTSIDE RECORDS SUMMARY | 2024-05-23 06:40 | XMS_ITS ---
Author Organization [facility] Address [address] [place] [phone] Care Team Providers Care Concaving Machine Operator Name Role Phone Yael (RETIRED) Trevor ALONZO Primary Care Provide r Naveen Escobar Jr [phone] REASON FOR VISIT screening Encounters Encounter Location Date Provider Diagnosis [facility] Outpatient [address] [place] [phone] 05/23/2024 Naveen Yang Jr Colon cancer screening Z12.11 Assessments Encounter Date Diagnosis (ICD Code) Assessment Notes Treatment Notes Treatment Clinical Notes Section Notes 05/23/2024 Colon cancer screening (ICD-10 - Z12.11) Plan Of Treatment No Information Progress Notes * ANA FERMIN ADOB:1975 (49 yo M)Acc No.[id number]:05/23/2024 COLON WITH MAC Patient: FERMIN RODRIGUEZ Provider: Twan Yang MD :1975 A ge:48 Y S ex:Male Date:05/23/2024 Address:[address] [place], [place] [phone] Pcp:Trevor Conley (RETIRED )MD Subjective: * Chief Complaints: * S creening Assessment: * Assessment: 1. C olon cancer screening - Z12.11 (Primary) Plan: * Procedure Codes: 4 5378 DIAGNOSTIC [id number] RCMND FLW-UP 10 YRS DOCD Billing Information: * Procedure Codes: 87104 DIAGNOSTIC COLONOSCOPY. 0528F RCMND FLW-UP 10 YRS DOCD. * The named appointment provid er may or may not be the originator of this progress note, and it is not deemed complete until electronically signed by the appointment provider. Sign off status: Pending * Provider: Twan Yang MD Date: 0 05/23/2024 Generated for Luz burris/Danny/Nadine on: 06/18/2024 03:59 PM EST
--- OUTSIDE RECORDS SUMMARY | 2025-03-17 11:00 | XMS_ITS ---
Author Organization [facility] Address [address] [place] [address] Care Team Providers Care Insurance Case Manager Name Role Phone Charity Moore Primary Care Provider Unavailabl Marcus Montemayor Unavailable [phone] Azul Encounters Encounter Location Date Provider Diagnosis [address] [address] 03/17/2025 Marcus Tracey Plan Of Treatment Next Appt Details Provider Name:Marcus Tracey , 07/10/2025 02:00:00 PM, [address] [place] [address], [address], Progress Notes * Moises SIMMONSinDOB:1975 ( 49 yo M)Acc No.[id number]:03/17/2025 Progress Note Patient: Gautam RODRIGUEZ Provider: Nneka Tracey DPM :1975 A ge:49 Y S ex:Male Date:03/17/2025 Address:[address] , [address] [place], [place] [id number] Pcp:Charity Moore Subjective: * Chief Complaints: * [address] Azul. * Medical History: Objective: * Vitals: Assessment: Plan: * Treatment: * Images: * The named appointment provid er may or may not be the originator of this progress note, and it is not deemed complete until electronically signed by the appointment provider. Sign off status: Pending * Provider: Nneka Tracey DPM Date: 05/17/2024 Generated for Luz Sterling on: 06/18/2024 03:59 PM EST
--- OUTSIDE RECORDS SUMMARY | 2025-04-17 15:59 | XMS_ITS | Patient Health Record ---
Author [facility] Address [address] [place] [address] Care Team Providers Care Director Of Automation Name Role Phone Zheng Mooreley Primary Care Provider Marcus Villanueva Unavailable [phone] Allergies Allergen (clinical drug ingredient) Drug/Non Drug Allergy documented on EMR Reaction Allergy Type Onset Date Status amoxicillin Amoxicillin rash oral itchy Drug Allergy Active Penicillin rash oral.,itchy Drug Allergy Active Results Component Value Reference Range Notes HEMOGLOBIN A1C (GLYCOHEMOGLO BIN) Reviewed date:11/25/2024 04:43:56 PM Interpretation: Performing Lab: Notes/Report: HEMOGLOBIN A1C % (HH) 6.4 Reason For Referral No Information Medications Medication SIG (Take, Route, Frequency, Duration) Notes Start Date End Date Status Haldol 5mg 1 tab once a day Ac tive Allopurinol 100 MG 1 tablet Orally Once a day Active Multi Vitamin Once a day Activ e metFORMIN HCl 500 MG 1 tablet with a carlee l Orally Once a day; Duration: 30 days Active Benztropine Mesylate 1 MG Orally Twice a day Active Simvastatin 80 MG 1 tablet in the even ing Orally Once a day; Duration: 30 day(s) Active Ascorbic Acid 500 MG 1 tablet Orally Onc e a day Active Sertraline HCl 100 MG 1.5 tablet Orally Once a day Active Cogentin 1mg 1tab Twice a day Active Vitamin D 25 MCG (1000 UT) Orally Once a day Active clonazePAM 0.5 MG 1 tablet at bedtime Orally Twice a day Active Topiramate 3 tab Active Fiber Active Extra Depth Orthopedic Shoes (1 Pair) with Customized Heat Molded Multidensity Innersoles (3 Pair) as directed Dx: NIDDM (E11.9), Hammertoe Foot Deformity (M20.41,M20.42), Preulcerative Skin Lesion(s) (L85.1) Active Eliquis Active Ammonium Lactate 12 % 1 application Exte rnally Twice a day; Duration: 30 days Active glipiZIDE XL 2.5 MG 1 tablet with breakf ast Orally Once a day; Duration: 30 day(s) Active Warfarin Sodium 2.5 MG 1 tablet Orally O nce a day; Duration: 30 day(s) Not-Rodrigo ing Flonase Active Jardiance 25 MG 1 tablet Orally Once a day; Duration: 30 day(s) Not-Rodrigo ing Immunizations Vaccine Route Administration Date Status Comme nts Influenza Unknown 02/02/2022 Administered Influenza Unknown 01/22/2024 Administered Influenza Unknown 01/23/2025 Administered Social History Tobacco Use: Social History [...] Problem Acquired hammer toe of right foot (24672880204412 05) Other hammer toe(s) (acquired), right foot (M20.41) Active confirmed Response to treatment,I mprovement Problem Acquired hammer toe of left foot (72653115809360 03) Other hammer toe(s) (acquired), left foot (M20.42) Active confirmed Response to treatment,I mprovement Problem Type II diabetes mellitus without complication (332823742) Type 2 diabetes mellitus without complication (E11.9) Active confirmed Vital Signs Blood pressure diastolic 65 mm Hg 03/27/2025 Height 5ft 6in in 03/27/2025 Blood pressure systolic 126 mm Hg 03/27/2025 Weight 166 lbs 03/27/2025 BMI 26.79 kg/m2 03/27/2025 Procedures Procedure Date Ordered Date Performed Result Body Sit e 98940-CPSTBMR NAIL, 6 OR MORE 05/13/2024 N/A 86799-KASEDUU NAIL, 6 OR MORE 08/19/2024 N/A 78084-LZXYPCG NAIL, 6 OR MORE 11/25/2024 N/A 30858-ZGJOPYR NAIL, 6 OR MORE 03/27/2025 N/A Encounters Encounter Location Date Provider Diagnosis [address] [address] 05/13/2024 Marcus Kyung Pain in right toe(s) M79.674 ; Tinea unguium B35.1 ; Pain in left toe(s) M79.675 ; Type 2 diabetes mellitus without complication E11.9 ; Other hammer toe(s) (acquired), right foot M20.41 and Other hammer toe(s) (acquired), left foot M20.[address] [address] 08/19/2024 Marcus Kyung Pain in right toe(s) M79.674 ; Tinea unguium B35.1 ; Pain in left toe(s) M79.675 and Type 2 diabetes mellitus without complication E11.[address] [address] 11/25/2024 Marcus Kyung Pain in right toe(s) M79.674 ; Other hammer toe(s) (acquired), right foot M20.41 ; Tinea unguium B35.1 ; Pain in left toe(s) M79.675 ; Type 2 diabetes mellitus without complication E11.9 and Other hammer toe(s) (acquired), left foot M20.[address] [address] 03/27/2025 Marcus Kyung Pain in right toe(s) M79.674 [...] Pain in right toe(s) (ICD-10 - M79.674) 03/27/2025 Tinea unguium (ICD-10 - B35.1) 03/27/2025 Pain in right toe(s) (ICD-10 - M79.674) 03/27/2025 Pain in left toe(s) (ICD-10 - M79.675) 11/25/2024 Tinea unguium (ICD-10 - B35.1) 08/19/2024 Tinea unguium (ICD-10 - B35.1) 08/19/2024 Pain in left toe(s) (ICD-10 - M79.675) 05/13/2024 Tinea unguium (ICD-10 - B35.1) 05/13/2024 Pain in left toe(s) (ICD-10 - M79.675) 05/13/2024 Type 2 diabetes mellitus without complication (ICD-10 - E11.9) 11/25/2024 Pain in left toe(s) (ICD-10 - M79.675) 08/19/2024 Type 2 diabetes mellitus without complication (ICD-10 - E11.9) 03/27/2025 Type 2 diabetes mellitus without complication (ICD-10 [...] Treatment Pending Test Test Name Order Date [id number] NAIL, 6 OR MORE 02/03/2020 89167-FEGGLYJ NAIL, 6 OR MORE 05/07/2020 04291-LWMNPJA NAIL, 6 OR MORE 08/10/2020 77094-NYUBDZS NAIL, 6 OR MORE 11/26/2020 83960-FREVWYM NAIL, 6 OR MORE 03/04/2021 53799-GWGSMRP NAIL, 6 OR MORE 06/07/2021 85043-BSGPLII NAIL, 6 OR MORE 09/06/2021 38341-FKUOIOW NAIL, 6 OR MORE 01/20/2022 44508-IJFRAPP NAIL, 6 OR MORE 06/13/2022 34282-OFDCVFN NAIL, 6 OR MORE 09/19/2022 41514-UBNDOFC NAIL, 6 OR MORE 12/26/2022 09232-BTAIRYE NAIL, 6 OR MORE 03/27/2023 94000-SWRITVI NAIL, 6 OR MORE 06/26/2023 96239-ZOMILTA NAIL, 6 OR MORE 09/25/2023 95737-BTHLUQI NAIL, 6 OR MORE 05/13/2024 21457-WTNSFQO NAIL, 6 OR MORE 08/19/2024 56228-YGADQBQ NAIL, 6 OR MORE 11/25/2024 03368-NRPHGWH NAIL, 6 OR MORE 03/27/2025 Next Appt Details Provider Name:Marcus Ronquillo Kyung , 07/10/2025 02:00:00 PM, [address] [place], [address], Insurance Providers Payer Name Payer Address Payer Phone Subscriber Number Group Number Insured Name Patient Relationship to Insured Coverage Start Date Coverage End Date Medicare National [facility] [address] [place] [address] [id number] Gautam Simmons Self - patient is the insured Medical (General) History Medical History History ICD Code Anxiety Depression Gout Psychiatric disorder Chicken pox type II diabetes ptsd CAD (Cholesterol) Mild Retardation Surgical History Surgery Date(Month/Year) Hospitalization History Reason Date(Month/Year) [facility] [place] ER sodium too high 12/23
--- OUTSIDE RECORDS SUMMARY | 2025-04-17 15:59 | XMS_ITS | Clinical Summary ---
Author Organization [employer] Address [address] [facility] [address] [place] [address] Care Team Providers Care School Laboratory Technician Name Role Phone Unavailable Primary Care [...]
--- OUTSIDE RECORDS SUMMARY | 2025-04-17 16:00 | XMS_ITS | Patient Health Record ---
Author Organization [facility] Address [address] [place] [address] Care Team Providers Care Technical Services Representative Name Role Phone Yael (RETIRED) Trevor ALONZO Primary Care Provide Naveen Dixon Jr Unavailable [phone] Allergies Allergen (clinical drug ingredient) Drug/Non Drug Allergy documented on EMR Reaction Allergy Type Onset Date Status Penicillin Unknown Drug Allergy Active Results Component Value Reference Range Flag Notes Glucose, Whole Blood Reviewed date:05/23/2024 09:24:07 PM Interpretation: Performing Lab:[facility], [address] [place] [id number] Notes/Report: Glucose, Whole Blood 233 60-115 mg/dL H RI TER #: [id number] Reason For Referral No Information Medications Medication SIG (Take, Route, Frequency, Duration) Notes Start Date End Date Status D3-1000 25 MCG (1000 UT) Capsule TAKE 1 CAPSULE BY MOUTH EVERY DAY Oral; Duration: 90 Active cloZAPine 100 MG Tablet TAKE 1/2 TABLET ORALLY IN THE MORNING AND 3 TABS AT BEDTIME. Oral; Duration: 30 Active Allopurinol 100 MG Tablet TAKE 1 TABLET BY MOUTH EVERY DAY Oral; Duration: 90 Active Eliquis 2.5 MG Tablet TAKE 1 TABLET BY M OUTH TWICE A DAY Oral; Duration: 90 Active Fiber Active Vitamin C 500 MG Tablet TAKE 1 TABLET BY MOUTH EVERY DAY Oral; Duration: 90 Active clonazePAM 0.5 MG Tablet TAKE 1 TABLET BY MOUTH TWICE A DAY Oral; Duration: 30 Active Flonase Allergy Relief 50 MCG/ACT Suspension 1 spray in each nostril Nasally Twice a day; Duration: 30 day(s) 05/01/2024 Active metFORMIN HCl 1000 MG Tablet TAKE 1 TABLET BY MOUTH TWICE A DAY DIRECTED Oral; Duration: 90 Active Simvastatin 80 MG Tablet TAKE 1 TABLET BY MOUTH EVERY DAY Oral; Duration: 90 Active Benztropine Mesylate 1 MG Tablet TAKE 1 TABLET BY MOUTH TWICE A DAY Oral; Duration: 30 Active Lantus SoloStar 100 UNIT/ML Solution Pen-injector INJECT 15 UNITS (0.15 ML) SUBCUTANEOUSLY DAILY IN THE MORNING Subcutaneous; Duration: 90 Unknown Daily-Vivien Multivitamin - Tablet TAKE 1 TABLET BY MOUTH EVERY DAY Oral; Duration: 90 Active Insulin Lispro (1 Unit Dial) 100 UNIT/ML Solution Pen-injector PLEASE SEE ATTACHED FOR DETAILED DIRECTIONS Subcutaneous; Duration: 30 Active MiraLax (colon prep) 17 GM/SCOOP Powder mixed with Gatorade or Crystal Light Orally begin at 5:00 p.m. the day before the procedure; Duration: 1 day 05/01/2024 Active Haloperidol 5 MG Tablet TAKE 1/2 TAB BY MOUTH IN THE MORNING AND 1 TAB AT BEDTIME. Oral; Duration: 30 Active Sertraline HCl 100 MG Tablet TAKE 1 AND 1/2 TABLETS DAILY BY MOUTH DIRECTED Oral; Duration: 30 Active Lantus SoloStar 100 UNIT/ML Solution Pen-injector INJECT 15 UNITS (0.15 ML) SUBCUTANEOUSLY DAILY IN THE MORNING Subcutaneous; Duration: 90 Not-Taking/PRN Social History Tobacco Use: Social History Observation Description Date Details (start date - stop date) Never Smoker NA - NA Social History Drugs/Alcohol: Social Info Question Answer Notes Alcohol Screen Did you have a drink containing alcohol in the past year? No Points 0 Interpretation Negative Tobacco Use: Social Info Question Answer Notes Tobacco Use/Smoking Patient is a nonsmoker Additional Details Category Social Info Options Details Miscellaneous: Marital status: single Occupation: DISABLED Problems Problem Type SNOMED Code ICD Code Onset Dates Problem Status W/U Status Risk Notes Problem Colon cancer screening (217155280) Colon cancer screening (Z12.11) Active confirmed Problem Long-term current use of anticoagulant (556161039) senior care (current) use of anticoagulants (Z79.01) Active confirmed Problem Long-term current use of drug therapy (200469089) Long-term current use of high risk medication other than anticoagulant (Z79.899) Active confirmed Vital Signs Blood pressure diastolic 00 mm Hg 05/01/2024 Height 5 ft 7 in in 05/01/2024 Blood pressure systolic 00 mm Hg 05/01/2024 Weight 171 lbs 05/01/2024 BMI 26.78 kg/m2 05/01/2024 Encounters Encounter Location Date Provider Diagnosis [facility] [address] [place], [place] [phone] 05/23/2024 Naveen Yang Jr Colon cancer screening Z12.11 [facility] [address] [place] [address] 05/01/2024 Naveen Yang Jr Colon cancer screening Z12.11 ; Long-term current use of high risk medication other than anticoagulant Z79.899 and senior care (current) use of anticoagulants Z79.01 [facility] [address] [place] [address] 05/14/2024 Naveen Yang Jr [facility] [address] [place] [address] 05/19/2024 Naveen Yang Jr Assessments Encounter Date [...] insulin the night before the prep. 05/01/2024 remote advisor (current) use of anticoagulants (ICD-10 - Z79.01) [...] OF [place] [address] [place] [address] [id number] FERMIN PEREZ Self - patient is the insured MEDICAID OF [facility] [address] [place] [address] [phone] [id number] FERMIN PEREZ Self - patient is the insured Medical (General) History Medical History History ICD Code Diabetes mellitus type 2 Pulmonary embolus Schizoaffective disorder bipolar disorder Intellectual disability PTSD Hyperlipidemia Surgical History Surgery Date(Month/Year) Excision of right axillary lesion
--- OUTSIDE RECORDS SUMMARY | 2025-04-17 16:01 | XMS_ITS | Encounter Summary ---
Author Organization [employer] [facility] Address [address] [facility] [address] [facility] [address] [place] [address] Care Team Providers Care Embossing Clerk Name Role Phone Unavailable Primary Care [...]
[2025-04-17 16:04] LABS: MANUAL DIFF FLAG NO
[2025-04-17 16:18] LABS: Hematocrit 41.4 % (42.0-52.0); Hemoglobin 13.6 g/dl (14.0-18.0); Imm Gran Abs Auto 0.02 X10*3/uL (0.00-0.03); Imm Gran Pct Auto 0.3 % (0.0-0.4); Lymphocytes Absolute Auto 2.8 X10*3/uL (1.2-4.9); Mean Corpuscular HGB Conc 32.9 g/dl (31.0-36.0); Mean Corpuscular Hemoglobin 28.1 pg (27.0-33.0); Mean Corpuscular Volume 85.5 fL (80.0-98.0); NRBC Abs Auto 0.000 X10*3/uL (0.0-0.012); NRBC Pct Auto 0.0 /100WBC (0.0-0.2); Platelet Count 187 X10*3/uL (160-400); Red Blood Count 4.84 X10*6/uL (4.60-5.80); White Blood Count 7.9 X10*3/uL (4.8-10.8)
== END 2025-04-17 15:56 | disposition home or self-care (01) ==
LOC: HO.LABR 15:55
PROVIDERS: PCP Physician Assistant; Visit Provider Psychiatry & Neurology Psychiatry
DX: Z79.899 Other long term (current) drug therapy (principal)
CPT/HCPCS: 36415; 85025

== ENCOUNTER → 2025-04-20 21:22 | Outpatient (BNV) | payer MEDICARE, MEDICAID, SELFPAY | PROVIDERS: Admitting Provider Physician Assistant; Emergency Provider Emergency Medicine; PCP Physician Assistant; Responsible Provider Student in an Organized Health Care Education/Training Program; Visit Provider Internal Medicine | DX: I25.2 Old myocardial infarction (principal); I49.8 Other specified cardiac arrhythmias | CPT/HCPCS: 93010 ==

== ENCOUNTER → 2025-04-20 22:00 | Outpatient (BNV) | payer MEDICARE, MEDICAID, SELFPAY | PROVIDERS: Emergency Provider Emergency Medicine; Visit Provider Radiology Diagnostic Radiology | DX: R50.9 Fever, unspecified (principal) | CPT/HCPCS: 71045 ==

== ENCOUNTER → 2025-04-21 00:50 | Outpatient (BNV) | payer MEDICARE, MEDICAID, SELFPAY | PROVIDERS: Admitting Provider Physician Assistant; Emergency Provider Emergency Medicine; Visit Provider Student in an Organized Health Care Education/Training Program | DX: N26.1 Atrophy of kidney (terminal) (principal); K86.89 Other specified diseases of pancreas | CPT/HCPCS: 74177 ==

== ENCOUNTER → 2025-04-21 07:07 | Outpatient (BNV) | payer MEDICARE, MEDICAID, SELFPAY | PROVIDERS: Admitting Provider Physician Assistant; Emergency Provider Emergency Medicine; PCP Physician Assistant; Responsible Provider Student in an Organized Health Care Education/Training Program; Visit Provider Student in an Organized Health Care Education/Training Program | DX: A41.9 Sepsis, unspecified organism (principal); R65.20 Severe sepsis without septic shock; E87.21 Acute metabolic acidosis; G93.41 Metabolic encephalopathy | CPT/HCPCS: 99223; 99233 ==

== ENCOUNTER → 2025-04-21 07:07 | Outpatient (BNV) | payer MEDICARE, MEDICAID, SELFPAY | PROVIDERS: Admitting Provider Physician Assistant; Emergency Provider Emergency Medicine; PCP Physician Assistant; Visit Provider Social Worker | DX: F25.9 Schizoaffective disorder, unspecified (principal) | CPT/HCPCS: 99232 ==